=== PATIENT | male | born 1960 | race Caucasian/White ===

== ENCOUNTER → 2018-04-12 09:07 | Outpatient (CLI) | payer BC, SELFPAY ==
--- NOTE | 2018-04-12 09:14 | US_ITS ---
US thyroid HISTORY: ITS.REASON: THYROMEGALY ORDERING PHYSICIAN: Tereza Anaya PATIENT AGE: 57 years Comparison: None FINDINGS: Right lobe: Homogeneous echogenicity measuring 4 x 1 x 2 cm. No nodules Left lobe: Homogeneous echogenicity measuring 4 x 1.2 x 1.8 cm. No nodules Isthmus: Unremarkable IMPRESSION: Thyroid gland upper limits of normal in size otherwise negative. No nodules apparent
== END ==
PROVIDERS: Family Provider Family Medicine; PCP Family Medicine; Visit Provider Nurse Practitioner
DX: E01.0 Iodine-deficiency related diffuse (endemic) goiter (principal)
CPT/HCPCS: 76536

== ENCOUNTER → 2019-03-14 09:53 | Outpatient (CLI) | payer BC, SELFPAY | PROVIDERS: PCP Family Medicine; Visit Provider Nurse Practitioner | DX: I49.8 Other specified cardiac arrhythmias (principal) | CPT/HCPCS: 93005 ==

== ENCOUNTER → 2019-03-21 07:46 | Outpatient (CLI) | payer BC, SELFPAY | PROVIDERS: PCP Family Medicine; Visit Provider Nurse Practitioner | DX: I49.8 Other specified cardiac arrhythmias (principal) | CPT/HCPCS: 93005 ==

== ENCOUNTER → 2019-05-23 10:12 | Outpatient (CLI) | payer BC, SELFPAY | PROVIDERS: PCP Family Medicine; Visit Provider Physician Assistant | DX: R00.1 Bradycardia, unspecified (principal); I49.3 Ventricular premature depolarization; R06.02 Shortness of breath; R94.31 Abnormal electrocardiogram [ECG] [EKG]; Z82.49 Family history of ischemic heart disease and other diseases of the circulatory system | CPT/HCPCS: 93270 ==

== ENCOUNTER → 2019-06-03 07:36 | Outpatient (CLI) | payer BC, SELFPAY ==
--- NOTE | 2019-06-03 07:42 | CA_ITS ---
PROCEDURE: 2-D M-mode and color Doppler study INDICATIONS FOR THE TEST: Chest pain COPD Heart Murmur Tobacco Smoking Palpitations Fatigue Syncope Edema Hypertension+Diabetes Mellitus Rheumatic Fever SOB+CALVERT Obesity Hyperlipidemia Family History HD+ Additional History ABN EKG, BRADYCARDIA, PVC'S GERD PATIENT INFORMATION HEIGHT: 73 WEIGHT:227 GENDER: Male B/P:143/97 2-D/M-MODE INTERPRETATION: 2-D MEASUREMENTS OBSERVED VALUES IN CMS Right Ventricular Dimension (RVDd) 2.2 Interventricular Septum (Thickness)(IVsd) 1.2 Left Ventricular Internal Dimensions(LVIDd) 5.6 Left Ventricular Posterior Wall (Thickness)(LVPWd) 1.1 Aortic Root 4.0 Aortic Cusp Separation 1.9 Left Atrial Dimensions (LAD) 4.9 2D 1. Left atrium is moderately enlarged, left ventricle is normal size, mild concentric left ventricular hypertrophy, visually estimated ejection fraction 55% with no regional wall motion abnormality, endocardial surfaces are poorly visualized. 2. The right atrium and right ventricle are normal size and contractility. 3. The aortic valve is thickened and calcified leaflet continue to display mobility. 4. Mitral valve has mitral annular calcification, leaflets are minimally thickened and calcified. 5. The tricuspid valve is grossly normal. 6. The pulmonic valve is very poorly visualized. 7. No significant pericardial effusion noted. DOPPLER INTERROGATION: Doppler interrogation of the aortic, mitral and tricuspid valvular presence of moderate mitral and mild tricuspid regurgitation, tricuspid regurgitation jet velocity is inadequate for calculation of the right ventricular systolic pressure, grade 1 diastolic dysfunction seen with tissue Doppler evidence of raised left atrial pressure. CONCLUSION: 1. Moderately enlarged left atrium, normal left ventricular size, mild concentric left ventricular hypertrophy, visually estimated ejection fraction 55% with no regional wall motion abnormality, endocardial surfaces are poorly visualized. Grade 1 diastolic dysfunction seen with tissue Doppler evidence of raised left atrial pressure. 2. Moderate mitral and mild tricuspid regurgitation 3. No significant pericardial effusion noted.
== END ==
PROVIDERS: PCP Family Medicine; Visit Provider Internal Medicine
DX: R06.02 Shortness of breath (principal); I10 Essential (primary) hypertension; R00.1 Bradycardia, unspecified; R94.31 Abnormal electrocardiogram [ECG] [EKG]; Z82.49 Family history of ischemic heart disease and other diseases of the circulatory system
CPT/HCPCS: 93306

== ENCOUNTER → 2019-06-20 10:43 | Outpatient (CLI) | payer BC, SELFPAY ==
[2019-06-20 11:05] LABS: Basophils % 0.5 % (0.1-2.0); Eosinophils # 0.1 K/mm3 (0.0-0.4); Eosinophils % 1.3 % (0.1-12.0); Hematocrit 47.6 % (42.0-52.0); Lymphocytes # 1.5 K/mm3 (0.7-4.5); Lymphocytes % 16.7 % (10-50); Mean Corpuscular HGB Conc 33.6 g/dL (31.8-35.4); Mean Corpuscular Hemoglobin 32.9 pg (27.0-31.2); Mean Corpuscular Volume 97.8 fl (80-94); Mean Platelet Volume 6.9 fl (7.4-10.4); Monocytes # 0.7 K/mm3 (0.1-1.0); Monocytes % 7.3 % (1.7-9.3); Neutrophils # 6.8 K/mm3 (1.8-7.8); Neutrophils % 74.2 % (37.0-80.0); Platelet Count 189 K/mm3 (142-424); Red Blood Count 4.87 M/mm3 (4.60-6.20); Red Cell Distribution Width 12.6 % (11.5-17.5); White Blood Count 9.1 K/mm3 (4.8-10.8)
[2019-06-20 13:37] LABS: Anion Gap 15.1 mEq/L (5-15); Blood Urea Nitrogen 12 mg/dL (7-18); Calcium 9.5 mg/dL (8.5-10.1); Carbon Dioxide 26 mmol/L (21.0-32.0); Chloride 103 mmol/L (98-107); Creatinine,Serum 1.21 mg/dL (0.70-1.30); Estimated Glomerular Filt Rate 61 ml/min (>60); GFR (African American) 74 ML/MIN (>60); Glucose 95 mg/dL (74-106); Potassium 4.1 mmoL/L (3.5-5.1); Sodium 140 mmol/L (136-145)
== END ==
PROVIDERS: Visit Provider Internal Medicine
DX: Z95.5 Presence of coronary angioplasty implant and graft (principal)
CPT/HCPCS: 36415; 80048; 85025

== ENCOUNTER → 2019-09-21 07:43 | Outpatient (CLI) | payer BC, SELFPAY ==
--- NOTE | 2019-09-21 07:47 | CA_ITS ---
APPROVED REPORT EXAM: Comprehensive 2D, Doppler, and color-flow Echocardiogram Window Shade Installer: Smiley Mariano RDCS Ht: 6 ft 1 in Wt: 234lbs BSA: 2.30 BP: 136/60 mmHg Indications: DECREASED EF 40% 06/13/19, CAD,AF,CM HTN,HLP 2D Dimensions LVOT 1.99 cm (M/F) 1.5-2.5 M-Mode Dimensions RVDd 2.53 cm (0.9-2.6) LVDd 6.85 cm (3.5-5.7) LVDs 5.11 cm (3.5-5.7) IVSd 1.08 cm (0.6-1.1) PWd 1.08 cm (0.6-1.1) EF (Teich) 48.80% FS 25.40% EDV (Teich) 243.20 mL ESV (Teich) 124.40 mL LV Diastology E/A Ratio 0.40 Aortic Valve LVOT Max 54.00 (70-110 cm/s) LVOT VTI 9.72 cm Mitral Valve MV A Velocity 63.00 (40-130 cm/s) Left Ventricle Left atrium is mildly enlarged, left ventricle is normal size, mild concentric left ventricular hypertrophy, visually estimated ejection fraction 50% with no regional wall motion abnormality, grade 1 diastolic dysfunction seen without tissue Doppler evidence of raise left atrial pressure. Right Ventricle Right atrium and right ventricular normal size and contractility. Aortic Valve Aortic valve is minimally thickened and fibrosed. There is no aortic stenosis aortic insufficiency. Mitral Valve Valve is grossly normal, there is mild mitral regurgitation. Tricuspid Valve Tricuspid valve is grossly normal, there is mild tricuspid regurgitation. Mild tricuspid valve prolapse. Pulmonic Valve Pulmonic valve is poorly visualized. Great Vessels Aortic root is normal size. Pericardium No significant pericardial effusion noted. Conclusion 1. Mildly enlarged left atrium, normal left ventricular size, mild concentric left ventricular hypertrophy, visually estimated ejection fraction 50% with no regional wall motion abnormality, grade 1 diastolic dysfunction seen without tissue Doppler evidence of raise left atrial pressure. 2. Mild mitral and tricuspid regurgitation. 3. No significant pericardial effusion noted. Electronically signed by : Beka Scott, 09/22/2019 13:01:36
== END ==
PROVIDERS: PCP Family Medicine; Visit Provider Family Medicine
DX: R93.1 Abnormal findings on diagnostic imaging of heart and coronary circulation (principal)
CPT/HCPCS: 93306

== ENCOUNTER → 2019-10-04 10:02 | Outpatient (CLI) | payer BC, SELFPAY ==
--- NOTE | 2019-10-04 10:06 | XR_ITS ---
PROCEDURE: XR HIP RT 2-3V W/PELVIS CLINICAL INDICATION: RT HIP PAIN COMPARISON: No exams were available for comparison FINDINGS: No fracture or dislocation. No lytic or blastic change. There are minimal osteoarthritic changes of the right. AP view of the pelvis also shows minimal osteoarthritic change of the left hip. IMPRESSION: Minimal osteoarthritic changes of the hips, no acute finding Dictated by: Ralph Gordon MD 10/04/2019 16:13 Electronically signed by Ralph Gordon MD in [place] 10/04/2019 16:13
== END ==
PROVIDERS: PCP Family Medicine; Visit Provider Family Medicine
DX: M25.551 Pain in right hip (principal)
CPT/HCPCS: 73502

== ENCOUNTER → 2021-11-11 07:42 | Outpatient (CLI) | payer BC, SELFPAY ==
--- NOTE | 2021-11-11 07:43 | CA_ITS ---
APPROVED REPORT EXAM: Comprehensive 2D, Doppler, and color-flow Echocardiogram Folding Machine Setter: Heather Hawkins, NEEL, RVS Ht: 6 ft 1 in Wt: 242lbs BSA: 2.33 BP: 166/90 mmHg Indications: SOA, Arrythmia, Abn EKG, A-fib, Hx-CM, DD, HTN, HLD 2D Dimensions IVSd 2.33 cm LVEF (Visual) 56.50 % PWd 1.21 cm LA Volume 103.60 mL LVDd 5.64 cm LA Volume Index 44.148138 mL/m2 (M/F) 16-34 LVDs 3.95 cm Aortic Root 3.51 cm Left Atrium 4.31 cm LVOT 2.15 cm (M/F) 1.5-2.5 M-Mode Dimensions LA Diam 4.47 cm (1.9-4.0) LVDd 5.91 cm (3.5-5.7) Ao Diam 3.75 cm (2.0-3.7) LVDs 4.46 cm (3.5-5.7) EF (Teich) 48.00% EPSs 0.81 cm FS 24.50% EDV (Teich) 173.90 mL ESV (Teich) 90.50 mL LV Diastology E Decel Time 233.00 (160-240 msec) E/A Ratio 0.76 MED E' 4.90 (< 7 cm/sec) MED A' 7.70 cm/s E'/MED E' Ratio 13.57 (>14) LAT E' 8.10 (<10 cm/sec) LAT A' 10.30 cm/s E/LAT E' Ratio 8.21 (>14) Pulm Vein s 48.00 cm/sec Aortic Valve LVOT Max 72.00 (70-110 cm/s) LVOT VTI 16.12 cm AoV Peak Darrion. 180.00 (50-130 cm/s) AO Peak GR. 12.90 mmHg AO Mean GR. 7.80 (<5 mmHg) AO VTI 42.27 (18-25 cm) ARLETTE (VTI) 1.38 (2.5-4.5 cm2) Mitral Valve MV A Velocity 88.00 (40-130 cm/s) E/A Ratio 0.76 MV Decel. Time 233.00 (160-240 ms) Pulmonary Valve PV Peak Velocity 85.00 (50-150 cm/s) Tricuspid Valve TR P. Velocity 183.00 cm/s RAP Estimate 10.00 mmHg RVSP 23.30 mmHg Left Ventricle Left atrium is moderately enlarged, left ventricular is normal in size, mild concentric left ventricular hypertrophy, visually estimated ejection fraction 50% with no regional wall motion abnormality, diastolic parameters are inconclusive. Right Ventricle Right atrium and right ventricle are mildly enlarged with normal contractility. Aortic Valve Aortic valve is minimally thickened and calcified without aortic stenosis or aortic insufficiency. Mitral Valve Mitral valve leaflets are minimally thickened, there is moderate mitral regurgitation. Tricuspid Valve Tricuspid valve grossly normal, there is mild tricuspid regurgitation, tricuspid regurgitation jet versus inadequate for calculation of the right ventricular systolic pressure. Pulmonic Valve Pulmonic valve is poorly visualized. Great Vessels Aortic root is normal size. Inferior vena cava is normal size with normal inspiratory collapse. Pericardium No significant pericardial effusion noted. Conclusion 1. Biatrial enlargement, normal left ventricular size, mild concentric left ventricular hypertrophy, visually estimated ejection fraction 50% with no regional wall motion abnormality, diastolic parameters are inconclusive. 2. Mildly enlarged right ventricle with normal contractility. 3. Moderate mitral and mild tricuspid regurgitation. 4. No significant pericardial effusion noted. 5. Inferior vena cava normal size with normal inspiratory collapse. Electronically signed by : Beka Scott MD 11/11/2021 13:44:10
== END ==
PROVIDERS: PCP Family Medicine; Visit Provider Urology
DX: I25.10 Atherosclerotic heart disease of native coronary artery without angina pectoris (principal); I34.0 Nonrheumatic mitral (valve) insufficiency; I48.0 Paroxysmal atrial fibrillation; I49.3 Ventricular premature depolarization; I49.8 Other specified cardiac arrhythmias; I10 Essential (primary) hypertension; R94.31 Abnormal electrocardiogram [ECG] [EKG]
CPT/HCPCS: 93306

== ENCOUNTER → 2022-01-20 06:18 | Outpatient (CLI) | payer BC, SELFPAY ==
--- NOTE | 2022-01-20 06:22 | NM_ITS ---
APPROVED REPORT Exam: Nuclear Stress Test Indication: SOB, CAD, HTN, High cholesterol, Family history Patient Location: Outpatient Stress Tech: Carmen Low [place] Tech:Candy Lennon, ARRT, RT (R)(N) Ht: 6 ft 1 in Wt: 232 lbs HR: 76 bpm BP: 178/97 mmHg BSA: 2.29 m2 BMI: 30.6 History: SOB, CAD, HTN, High cholesterol, Family history Procedure: Patient received a 0.4 mg of intravenous Lexiscan, resting heart rate 76 bpm, resting blood pressure 178/97 mmHg, with Lexiscan maximum heart rate achived was 92 bpm which is Less than 85 % of the maximum predicted heart rate and blood pressure was 180/108 mmHg. With Lexiscan, patient denied any complaint of chest pain. Electrocardiogram Resting electrocardiogram showed sinus rhythm nonspecific ST-T changes, with Lexiscan there is less than 1.[address] segment depression noted from the baseline EKG. The EKG portion of the Lexiscan is nondiagnostic. Cardiac Stress and Resting SPECT Images: Cardiac Stress and Resting SPECT images were obtained using technetium 99m Myoview 30.1 mCi stress and 10.50 mCi at rest. Patient unable to lay on stomach for prone images. SPECT for analysis of segmental wall motion and calculation of the ejection fraction also done. Cardiac stress and rest respiratory show severe reduced tracer activity in the inferior posterior basal and inferior apical wall which partially improves on the resting images suggestive of mixed ischemia and scar, compared right ejection fraction is 33% with marked inferior wall hypokinesis. Right ventricle is mildly enlarged with normal contractility. Conclusion: 1. The EKG portion of the Lexiscan is nondiagnostic. 2. Scintigraphic evidence of mixed ischemia and scar involving the inferior, posterior basal and inferior apical wall, computer derived ejection fraction is 33% with segmental wall motion abnormality described above, right ventricle is mildly enlarged with normal contractility. 3. Abnormal Lexiscan Myoview study. Electronically signed by : Beka Scott MD 01/20/2022 17:53:28
--- NOTE | 2022-01-20 08:23 | HMH.ITSHM ---
Current Home Medications as stated by this patient Solo Ambrose or practice representative. []RIVAROXABAN LOSARTAN ESOMEPRAZOLE CELECOXIB BISOPROLOL ASA
--- NOTE | 2022-01-20 08:43 | CA_ITS ---
APPROVED REPORT Exam: Pharmacologic Technologist: Carmen Espinal, Ht: 6 ft 1 in Wt: 234 lbs BSA: 2.30 m2 HR: 76 bpm BP: 178/97 mmHg Medical History Medications: Aspirin,,,,, XaRELTO,,,,, BisOPROLOL,,,,, BisOPROLOL Fumarate,,,,, Celecoxib,,,,, [id number],,,,, Stress Test Details Test: LEXISCAN HR Resting HR: 77 bpm Max Heart Rate (APMHR): 158.113793 bpm Max HR Achieved: 99 bpm Target HR (85% APMHR): 134.798067 bpm % of APMHR: 62.66 Recovery HR: 92 bpm BP Resting BP: 178/97 mmHg Max BP: 201/105 mmHg Recovery BP: 178.0/110.0 mmHg ECG Resting ECG: NSR, PVC's, T wave inversion Inf.Lat Clinical Reason for Termination: Completed Protocol Exercise duration: 04:01 min Highest Stage Achieved: Exercise capacity: 1.0 METs Stress ECG Conclusion Symptoms: No CP Arrhythmias/Ectopy: Frequent PVC's, occasional V. couplet ST-T Changes: <1.5mm ST Segment changes Conclusion: Non-Diagnostic Test Summary REST . . . . . . . Resting REST 09:57 . . 77 . 178/ 97 . . Stage 1 01:00 . . 87 . . . . Stage 2 01:00 . . 87 . . . . Stage 3 01:00 . . 82 . 180/108 . . Stage 4 01:00 . . 89 . 191/111 . . Stage 4 01:01 . . 89 . 191/111 . Stop exercise at 04:01 RECOVERY 01:00 . . 80 . 201/105 . . RECOVERY 02:00 . . 79 . 201/105 . . RECOVERY 03:00 . . 92 . 185/114 . . RECOVERY 04:00 . . 82 . 185/114 . . RECOVERY 05:00 . . 0 . 185/114 . . RECOVERY 05:24 . . 0 . 185/114 . . Electronically signed by : Beka Scott MD 01/20/2022 17:48:53
== END ==
PROVIDERS: PCP Family Medicine; Visit Provider Physician Assistant
DX: Z01.810 Encounter for preprocedural cardiovascular examination (principal); R06.02 Shortness of breath; I25.10 Atherosclerotic heart disease of native coronary artery without angina pectoris; I10 Essential (primary) hypertension; I34.0 Nonrheumatic mitral (valve) insufficiency; I49.3 Ventricular premature depolarization
CPT/HCPCS: 78452; 93017; A9502; J2785

== ENCOUNTER → 2022-05-02 10:09 | Outpatient (CLI) | payer BC, SELFPAY ==
[2022-05-02 10:46] LABS: Basophils # 0.1 K/mm3 (0-0.2); Basophils % 1.5 % (0.1-2.0); Eosinophils # 0.2 K/mm3 (0.0-0.4); Eosinophils % 3.9 % (0.1-12.0); Hematocrit 47.7 % (42.0-52.0); Hemoglobin 15.2 g/dL (14.1-18.0); Lymphocytes # 1.4 K/mm3 (0.7-4.5); Lymphocytes % 26.1 % (10-50); Mean Corpuscular HGB Conc 31.8 g/dL (31.8-35.4); Mean Corpuscular Hemoglobin 33.8 pg (27.0-31.2); Mean Corpuscular Volume 106.5 fl (80-94); Mean Platelet Volume 10.5 fl (7.4-10.4); Monocytes # 0.5 K/mm3 (0.1-1.0); Monocytes % 8.2 % (1.7-9.3); Neutrophils # 3.3 K/mm3 (1.8-7.8); Neutrophils % 60.3 % (37.0-80.0); Platelet Count 54 K/mm3 (142-424); Red Blood Count 4.48 M/mm3 (4.60-6.20); Red Cell Distribution Width 12.4 % (11.5-17.5); Reticulocyte % (Auto) 1.3 % (0.9-3.2); White Blood Count 5.5 K/mm3 (4.8-10.8)
[2022-05-02 10:51] LABS: Alanine Aminotransferase 23 U/L (12-78); Albumin Level 3.5 g/dl (3.5-5.0); Albumin/Globulin Ratio 1.1 (1.1-1.8); Alkaline Phosphatase 63 U/L (38-126); Anion Gap 10.1 mEq/L (5-15); Aspartate Amino Transferase 36 U/L (17-59); Bilirubin,Total 1.2 mg/dl (0.2-1.3); Blood Urea Nitrogen 11 mg/dl (9-20); Calcium 9.5 mg/dl (8.4-10.2); Carbon Dioxide 26 mmol/L (22.0-30.0); Chloride 104 mmol/L (98-107); Estimated Glomerular Filt Rate 98 ml/min (>60); GFR (African American) 118 ML/MIN (>60); Globulin 3.2 g/dL (1.3-3.2); Glucose 114 mg/dl (74-100); Potassium 4.1 mmoL/L (3.5-5.1); Sodium 136 mmol/L (136-145); Total Protein,Serum 6.7 g/dl (6.3-8.2)
[2022-05-02 11:57] LABS: Vitamin B12 662 pg/mL (239-931)
[2022-05-02 12:01] LABS: Folate 7.07 ng/mL
== END ==
PROVIDERS: Internal Medicine Hematology & Oncology; PCP Family Medicine; Visit Provider Internal Medicine Medical Oncology
DX: D69.49 Other primary thrombocytopenia (principal)
CPT/HCPCS: 36415; 80053; 82248; 82607; 82746; 85025; 85044

== ENCOUNTER → 2022-07-10 07:10 | Outpatient (CLI) | payer BC, SELFPAY ==
--- NOTE | 2022-07-10 07:23 | XR_ITS ---
FINAL REPORT CLINICAL HISTORY: left knee pain FINDINGS: LEFT KNEE: 4 views of the left knee obtained. There is no acute fracture or dislocation. There are mild and moderate degenerative changes. Medial compartment joint space narrowing is seen. There is a suprapatellar calcification which appears chronic. There is no soft tissue abnormality. IMPRESSION: Degenerative changes without acute bony abnormality. Reviewed, Interpreted and Dictated by Robert Cruz III, MD Transcribed by Nichole Spear Authenticated and [facility]
[2022-07-10 09:10] LABS: Basophils % 0.8 % (0.1-2.0); Eosinophils # 0.2 K/mm3 (0.0-0.4); Eosinophils % 4.9 % (0.1-12.0); Hematocrit 48.1 % (42.0-52.0); Lymphocytes # 1.5 K/mm3 (0.7-4.5); Lymphocytes % 30.3 % (10-50); Mean Corpuscular HGB Conc 31.2 g/dL (31.8-35.4); Mean Corpuscular Hemoglobin 32.5 pg (27.0-31.2); Mean Corpuscular Volume 104.2 fl (80-94); Mean Platelet Volume 10.4 fl (7.4-10.4); Monocytes # 0.6 K/mm3 (0.1-1.0); Monocytes % 11.3 % (1.7-9.3); Neutrophils # 2.6 K/mm3 (1.8-7.8); Neutrophils % 52.8 % (37.0-80.0); Red Blood Count 4.61 M/mm3 (4.60-6.20); Red Cell Distribution Width 13.3 % (11.5-17.5); White Blood Count 4.8 K/mm3 (4.8-10.8)
[2022-07-10 09:15] LABS: Creatinine,Urine Random 99 mg/dL (Not Estab.); Microalbumin < 6.000 mg/L (0-16.7); Platelet Count 40 K/mm3 (142-424)
[2022-07-10 09:35] LABS: Chloride 101 mmol/L (98-107)
[2022-07-10 09:36] LABS: Potassium 4.9 mmoL/L (3.5-5.1); Sodium 134 mmol/L (136-145)
[2022-07-10 09:37] LABS: Hemoglobin A1C 4.7 % (4.0-6.0)
[2022-07-10 10:08] LABS: Thyroid Stimulating Hormone 2.37 uIU/mL (0.465-4.68)
[2022-07-10 10:10] LABS: Alanine Aminotransferase 19 U/L (12-78); Albumin Level 3.9 g/dl (3.5-5.0); Albumin/Globulin Ratio 1.2 (1.1-1.8); Alkaline Phosphatase 84 U/L (38-126); Anion Gap 11.9 mEq/L (5-15); Aspartate Amino Transferase 45 U/L (17-59); Bilirubin,Total 2.2 mg/dl (0.2-1.3); Blood Urea Nitrogen 10 mg/dl (9-20); Calcium 8.9 mg/dl (8.4-10.2); Carbon Dioxide 26 mmol/L (22.0-30.0); Chol/HDL Ratio 2.1 (1-3.5); Cholesterol 183 mg/dl (140-200); Estimated Glomerular Filt Rate 98 ml/min (>60); GFR (African American) 118 ML/MIN (>60); Globulin 3.3 g/dL (1.3-3.2); Glucose 101 mg/dl (74-100); HDL Cholesterol 88 mg/dl (40-60); Total Protein,Serum 7.2 g/dl (6.3-8.2); Triglycerides 55 mg/dl (30-150); VLDL Cholesterol 11 mg/dL (0-40)
[2022-07-11 09:11] LABS: Direct LDL Cholesterol 90 mg/dL (100-129)
== END ==
PROVIDERS: PCP Family Medicine; Visit Provider Family Medicine
DX: D69.6 Thrombocytopenia, unspecified (principal); E11.9 Type 2 diabetes mellitus without complications; I10 Essential (primary) hypertension; M25.562 Pain in left knee
CPT/HCPCS: 36415; 73564; 80053; 80061; 82043; 82570; 83036; 84443; 85025

== ENCOUNTER → 2022-07-17 13:23 | Outpatient (CLI) | payer BC, SELFPAY ==
[2022-07-17 13:50] LABS: Basophils # 0.4 K/mm3 (0-0.2); Basophils % 6.6 % (0.1-2.0); Eosinophils # 0.2 K/mm3 (0.0-0.4); Eosinophils % 3.5 % (0.1-12.0); Hemoglobin 15.7 g/dL (14.1-18.0); Lymphocytes % 34.1 % (10-50); Mean Corpuscular HGB Conc 30.1 g/dL (31.8-35.4); Mean Corpuscular Hemoglobin 34.1 pg (27.0-31.2); Mean Platelet Volume 18.1 fl (7.4-10.4); Monocytes # 0.6 K/mm3 (0.1-1.0); Monocytes % 10.1 % (1.7-9.3); Neutrophils % 52.4 % (37.0-80.0); Red Cell Distribution Width 15.4 % (11.5-17.5); White Blood Count 5.8 K/mm3 (4.8-10.8)
[2022-07-17 13:53] LABS: Platelet Count 50 K/mm3 (142-424)
--- NOTE | 2022-07-17 15:45 | PC.NURSE ---
Roverto DERAS CALLED AT 1327 TO REPORT PLT'S OF 50. PT NAME, AND LAB VALUE REPEATED AND VERIFIED; RESULTS GIVEN DIRECTLY TO THE PHYSICIAN; NO NEW ORDERS RECIEVED
== END ==
PROVIDERS: PCP Family Medicine; Visit Provider Internal Medicine Medical Oncology
DX: D69.6 Thrombocytopenia, unspecified (principal)
CPT/HCPCS: 36415; 85025

== ENCOUNTER → 2022-08-01 08:14 | Outpatient (CLI) | payer BC, SELFPAY ==
--- NOTE | 2022-08-01 08:25 | CT_ITS ---
FINAL REPORT TECHNIQUE: Oral and IV contrast enhanced exam. This study was performed with techniques to keep radiation doses as low as reasonably achievable (ALARA). Individualized dose reduction techniques using automated exposure control or adjustment of mA and/or kV according to the patient's size were employed. CLINICAL HISTORY: THROMBOCYTOPENIA, SPLENOMEGALY FINDINGS: Abdomen: Lung bases are clear. Liver has a cirrhotic appearance. Mild splenomegaly. The pancreas and adrenal glands are unremarkable. Kidneys show no mass or obstruction. Thrombosed superior mesenteric vein has an acute appearance extending into mesenteric vein branches of the central abdomen and right lower quadrant. Mild stranding and wall thickening of the duodenum and terminal ileum. Ischemia cannot be excluded. No free air. No bowel obstruction or fluid collection is seen. Pelvis: The appendix is not visualized. Pelvic bowel loops are unremarkable. Trace free fluid. Nonspecific bladder wall thickening. 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 Mild wall thickening of the duodenum and terminal ileum. Cannot exclude ischemia. Reviewed, Interpreted and Dictated by Abundio Sepulveda MD Transcribed by Gerardo Aranda Authenticated and [facility]
--- NOTE | 2022-08-01 09:43 | HMH.ITSTN ---
Gerardo from reading room called me with critical findings at 9:37am I called and spoke with nurse Amber from Dr Desouza's office with acute findings. Acute SMV thrombosis extending to numerous branches.
--- NOTE | 2022-08-01 10:38 | ECG_ITS ---
APPROVED REPORT Exam: Resting ECG HR:77 bpm ECG Measurements Heart Rate 77 AXES NM 203 P 43 QRSd 113 QRS 27 QT 387 T -62 QTc 418 Conclusion SINUS RHYTHM WITH FREQUENT VENTRICULAR PREMATURE COMPLEXES Inferior and anterior changes are noted since 2018 ABNORMAL ECG UNCONFIRMED REPORT Electronically signed by : Jimbo Holbrook MD 08/02/2022 16:07:44
== END ==
PROVIDERS: PCP Family Medicine; Visit Provider Internal Medicine Medical Oncology
DX: D69.6 Thrombocytopenia, unspecified (principal); R16.1 Splenomegaly, not elsewhere classified
CPT/HCPCS: 74178; 93005; Q9967

== ENCOUNTER 2022-08-01 10:22 | Emergency (ER) | payer BC, SELFPAY ==
[2022-08-01] VITALS (7 sets, daily range): BP systolic 162–190; BP diastolic 85–105; PULSE 65–87; RESP 13–16; TEMP 36.4–36.6; O2SAT 98–100; BMI 30.9
--- NOTE | 2022-08-01 10:39 | HMH.EDGENADL ---
Discharge Plan Disposition Patient Disposition: Home, Self-Care Condition: Good Prescriptions Prescriptions: New Xarelto 15 mg tablet 15 mg PO BID 21 Days Qty: 42 0RF Rx Instructions: must administer with a meal/food No Action esomeprazole magnesium [Nexium] 20 mg capsule,delayed release(DR/EC) 20 mg PO DAILY losartan 100 mg tablet 100 mg PO DAILY Qty: 90 3RF bisoprolol fumarate 5 mg tablet See Rx Instructions .ROUTE .COMPLEX Qty: 90 3RF Dose Instruction: TAKE 1 TABLET BY MOUTH DAILY Rx Instructions: TAKE 1 TABLET BY MOUTH DAILY Referrals Follow up/Referrals: Pasquale Girard MD [Primary Care Provider] - See instructions Activity Restrictions/Add. Instructions Additional Instructions/Restrictions: Start Xarelto 15 mg twice a day for 3 weeks. After that. Dose will change to 20 mg daily, we will need to obtain a new prescription for that dosage Return to the emergency department if any abdominal pain, vomiting, vomiting of blood, blood in the stool. Follow-up with Dr. Girard in the office next week. Clinical Impressions Clinical Impression: Superior mesenteric vein thrombosis, Thrombocytopenia Discharge ED Provider: Reji Mata General Adult HPI General Chief complaint: Recheck/Abnormal Lab/Rx Stated complaint: possible bowel blockage Time Seen by Provider: 08/01/22 10:40 History of Present Illness HPI narrative: The patient is sent from radiology department regarding concerns for findings on an outpatient CT scan. He had a CT scan of his abdomen and pelvis today ordered by Dr. Desouza a couple of weeks ago for evaluation of thrombocytopenia to check for splenomegaly and liver disease. The CT scan is read by the radiologist as showing superior mesenteric vein thrombosis, possibly acute. The patient says he feels fine. He is having no abdominal pain. He had abdominal cramps a couple of days ago relieved by bowel movement, which she says is a recurrent problem for several years. Since last night he has had some pain in his right lower lumbar area above the iliac crest which feels like a pulled muscle. He has had no vomiting, no fever. He was on blood thinner, Xarelto, which was stopped a couple of months ago because of thrombocytopenia. He has no history of venous thromboembolic disease to his knowledge. He says he was on a blood thinner because of a cardiac stent. Also previously on low-dose aspirin which was also stopped. Related Data Home Medications Medication Instructions Recorded Confirmed esomeprazole magnesium 20 mg 20 mg PO DAILY 05/23/19 07/17/22 capsule,delayed release (Nexium) Previous Rx's Medication Instructions Recorded losartan 100 mg tablet 100 mg PO DAILY #90 tabs 05/01/21 bisoprolol fumarate 5 mg tablet See Rx Instructions .Route 04/21/22 .COMPLEX #90 tabs rivaroxaban 15 mg tablet (Xarelto) 15 mg PO BID 21 days #42 tabs 08/01/22 Allergies Allergy/AdvReac Type Severity Reaction Status Date / Time No Known Allergies Allergy Verified 07/17/22 12:35 [facility] Medical History Bigeminy CAD (coronary artery disease) Diastolic dysfunction DM2 (diabetes mellitus, type 2) Frequent PVCs HTN (hypertension) Mitral regurgitation SOB (shortness of breath) Thrombocytopenia Surgical History History of shoulder surgery Family History Other Cancer Diabetes Hyperlipidemia Hypertension Social History Smoking Status: Never smoker alcohol intake: current substance use type: denies use current occupational status: employed Travel in the last 8 weeks: None household members: significant other ROS Obtained: Yes Systems reviewed as appropriate & no additional complaints except as documented Constituti
--- NOTE | 2022-08-01 10:52 | PC.NURSE ---
Dr Mata talking to Dr Aquino about patient.
--- NOTE | 2022-08-01 11:02 | PC.NURSE ---
pt up ambulatory to bathroom
--- NOTE | 2022-08-01 11:04 | PC.NURSE ---
Had aging room operator page Dr Desouza
--- NOTE | 2022-08-01 11:10 | PC.NURSE ---
grinder set up operator universal talked to specialty clinic, they stated that she is home, requested that they page her.
[2022-08-01 11:13] LABS: Coronavirus 19, PCR Not Detected (NotDetected); Influenza A, PCR Not Detected (NotDetected); Influenza B, PCR Not Detected (NotDetected)
[2022-08-01 11:17] LABS: Microscopic, Urine URINE MICROSCOPIC (MICROSCOPIC)
[2022-08-01 11:18] LABS: Chloride 102 mmol/L (98-107); Potassium 4.8 mmoL/L (3.5-5.1); Sodium 137 mmol/L (136-145)
[2022-08-01 11:20] LABS: Blood Urea Nitrogen 14 mg/dl (9-20); Creatinine Clearance Estimated 114 mL/min (50-200); Estimated Glomerular Filt Rate 98 ml/min (>60); GFR (African American) 118 ML/MIN (>60)
[2022-08-01 11:20] LABS: Appearance,Urine CLEAR (Clear); Bilirubin,Urine Negative (Negative); Blood, Urine Negative (Negative); Color,Urine YELLOW (Yellow); Glucose,Urine (UA) Negative (Negative); Ketones,Urine Negative (Negative); Leukocyte Esterase,Urine Negative (Negative); Nitrate,Urine Negative (Negative); Protein,Urine Negative (Negative); Specific Gravity, Urine <= 1.005 (1.005-1.030); Urobilinogen,Urine 0.2 EU/dl (0.2)
[2022-08-01 11:21] LABS: Alanine Aminotransferase 27 U/L (12-78); Albumin Level 3.8 g/dl (3.5-5.0); Albumin/Globulin Ratio 1.2 (1.1-1.8); Alkaline Phosphatase 75 U/L (38-126); Anion Gap 13.8 mEq/L (5-15); Aspartate Amino Transferase 51 U/L (17-59); Bilirubin,Total 1.3 mg/dl (0.2-1.3); Calcium 8.7 mg/dl (8.4-10.2); Carbon Dioxide 26 mmol/L (22.0-30.0); Globulin 3.3 g/dL (1.3-3.2); Glucose 122 mg/dl (74-100); Total Protein,Serum 7.1 g/dl (6.3-8.2)
[2022-08-01 11:22] LABS: Basophils # 0.1 K/mm3 (0-0.2); Basophils % 2.4 % (0.1-2.0); Eosinophils # 0.2 K/mm3 (0.0-0.4); Eosinophils % 3.9 % (0.1-12.0); Hematocrit 46.3 % (42.0-52.0); Hemoglobin 15.5 g/dL (14.1-18.0); Lymphocytes # 1.4 K/mm3 (0.7-4.5); Lymphocytes % 25.2 % (10-50); Mean Corpuscular HGB Conc 33.5 g/dL (31.8-35.4); Mean Corpuscular Hemoglobin 34.2 pg (27.0-31.2); Mean Corpuscular Volume 102.1 fl (80-94); Mean Platelet Volume 10.9 fl (7.4-10.4); Monocytes # 0.4 K/mm3 (0.1-1.0); Monocytes % 7.7 % (1.7-9.3); Neutrophils # 3.4 K/mm3 (1.8-7.8); Neutrophils % 60.7 % (37.0-80.0); Platelet Count 56 K/mm3 (142-424); Red Blood Count 4.53 M/mm3 (4.60-6.20); Red Cell Distribution Width 13.2 % (11.5-17.5); White Blood Count 5.5 K/mm3 (4.8-10.8)
--- NOTE | 2022-08-01 11:27 | PC.NURSE ---
waiting elementary education teacher back from Dr. Burgos who is elementary education teacher for surgery ( spoke with BJ in surgery office)
[2022-08-01 11:30] LABS: Activated Partial Thrombo Time 26.3 seconds (22.5-28.5); INR 1.15 (0.9-1.1); Prothrombin Time 12.1 seconds (9.2-12.1)
[2022-08-01 11:37] LABS: Squamous Epithelial Cell,Urine Occasional #/hpf (0-5)
--- NOTE | 2022-08-01 11:57 | PC.NURSE ---
Dr Mata talking to [facility] about patient.
--- NOTE | 2022-08-01 12:08 | PC.NURSE ---
Dr Mata talking to DR Aquino about patient.
--- NOTE | 2022-08-01 12:25 | PC.NURSE ---
PT UP TO RESTROOM
== END 2022-08-01 12:32 | disposition home or self-care (01) ==
PROVIDERS: Emergency Provider Emergency Medicine; PCP Family Medicine
DX: K55.059 Acute (reversible) ischemia of intestine, part and extent unspecified (principal); R10.31 Right lower quadrant pain; R06.02 Shortness of breath; I11.0 Hypertensive heart disease with heart failure; I50.32 Chronic diastolic (congestive) heart failure; I25.10 Atherosclerotic heart disease of native coronary artery without angina pectoris; I49.3 Ventricular premature depolarization; I49.8 Other specified cardiac arrhythmias; I34.0 Nonrheumatic mitral (valve) insufficiency; R16.1 Splenomegaly, not elsewhere classified; E11.9 Type 2 diabetes mellitus without complications; M54.50 Low back pain, unspecified; Z79.01 Long term (current) use of anticoagulants; Z20.822 Contact with and (suspected) exposure to COVID-19; Z79.52 Long term (current) use of systemic steroids; Z79.899 Other long term (current) drug therapy; Z95.5 Presence of coronary angioplasty implant and graft; Z82.49 Family history of ischemic heart disease and other diseases of the circulatory system; Z83.3 Family history of diabetes mellitus; Z80.9 Family history of malignant neoplasm, unspecified; Z83.49 Family history of other endocrine, nutritional and metabolic diseases
CPT/HCPCS: 80053; 81001; 85025; 85610; 85730; 99284; C9803; U0003; U0005

== ENCOUNTER → 2022-11-10 09:32 | Outpatient (CLI) | payer BC, SELFPAY ==
--- NOTE | 2022-11-10 09:34 | CA_ITS ---
APPROVED REPORT EXAM: Comprehensive 2D, Doppler, and color-flow Echocardiogram Salvage Laborer: Luz Marina Cabello RVT Ht: 6 ft 1 in Wt: 242lbs BSA: 2.33 BP: 138/48 mmHg Indications: MOD MR,CM,ABN EKG,A-FIB,SOA,HTN,HLD 2D Dimensions LVOT 2.46 cm (M/F) 1.5-2.5 LA Volume 81.10 mL LA Volume Index 34.66 mL/m2 (M/F) 16-34 M-Mode Dimensions RVDd 3.42 cm (0.9-2.6) LA Diam 5.21 cm (1.9-4.0) LVDd 6.04 cm (3.5-5.7) Ao Diam 3.67 cm (2.0-3.7) LVDs 3.75 cm (3.5-5.7) IVSd 1.85 cm (0.6-1.1) PWd 0.60 cm (0.6-1.1) EF (Teich) 67.20% FS 37.90% EDV (Teich) 182.80 mL TAPSE 2.17 (<1.7) ESV (Teich) 60.00 mL LV Diastology E Decel Time 193.00 (160-240 msec) E/A Ratio 2.9 MED E' 11.50 (< 7 cm/sec) E'/MED E' Ratio 6.94 (>14) LAT E' 12.70 (<10 cm/sec) E/LAT E' Ratio 6.28 (>14) Aortic Valve AO Peak GR. 15.90 mmHg Mitral Valve MV E Max Darrion. 80.00 (40-130 cm/s) MV A Velocity 28.00 (40-130 cm/s) E/A Ratio 2.89 MV Decel. Time 193.00 (160-240 ms) MV PHT 57.00 ms Pulmonary Valve PV Peak Velocity 86.00 (50-150 cm/s) Tricuspid Valve TR P. Velocity 278.00 cm/s RAP Estimate 10.00 mmHg RVSP 40.90 mmHg Left Ventricle Technically difficult study because of the patient factors and poor acoustic windows. Left atrium is mildly enlarged, left ventricle is normal size, mild concentric left ventricular hypertrophy, estimated ejection fraction 50% with no regional wall motion abnormality, diastolic parameters are inconclusive. Right Ventricle Right atrium and right ventricle are mildly enlarged with normal contractility. Aortic Valve Aortic valve is minimally thickened and fibrosed there is no aortic stenosis or aortic insufficiency. Mitral Valve Mitral valve leaflets are minimally thickened, there is moderate mitral regurgitation. Tricuspid Valve Tricuspid grossly normal, there is moderate tricuspid regurgitation, tricuspid regurgitation jet velocity is inadequate for calculation of the right ventricular systolic pressure. Pulmonic Valve Pulmonic valve is poorly visualized. Great Vessels Aortic root is normal size. Inferior vena cava is poorly visualized. Pericardium No significant pericardial effusion noted. Conclusion 1. Biatrial enlargement, normal left ventricular size, estimated ejection fraction 50% with no regional wall motion abnormality, diastolic parameters are inconclusive. 2. Mildly enlarged right ventricle with normal contractility. 3. Moderate mitral and tricuspid regurgitation. 4. No significant pericardial effusion noted. 5. Inferior vena cava is poorly visualized. Electronically signed by : Beka Scott MD 11/10/2022 22:04:33
== END ==
PROVIDERS: PCP Family Medicine; Visit Provider Nurse Practitioner
DX: R06.02 Shortness of breath (principal); I25.5 Ischemic cardiomyopathy; I25.10 Atherosclerotic heart disease of native coronary artery without angina pectoris; I34.0 Nonrheumatic mitral (valve) insufficiency; I48.0 Paroxysmal atrial fibrillation; I10 Essential (primary) hypertension
CPT/HCPCS: 93306

== ENCOUNTER 2023-04-03 14:23 | Observation (INO) | payer BC, SELFPAY ==
[2023-04-03] VITALS (20 sets, daily range): BP systolic 133–173; BP diastolic 62–104; PULSE 60–90; RESP 15–20; TEMP 36.4–36.8; O2SAT 99–100; BMI 33.0; BMI 32.9
--- NOTE | 2023-04-03 14:32 | HMH.EDGENADL ---
Discharge Plan Disposition Patient Disposition: Admitted Chief Complaint: Shortness of Breath/Dyspnea Prescriptions Prescriptions: No Action esomeprazole magnesium [Nexium] 20 mg capsule,delayed release(DR/EC) 20 mg PO DAILY Xarelto 20 mg tablet 20 mg PO DAILY cholecalciferol (vitamin D3) 125 mcg (5,000 unit) capsule 125 mcg PO DAILY furosemide 40 mg tablet 40 mg PO DAILY bisoprolol fumarate 5 mg tablet 5 mg PO DAILY losartan 100 mg tablet 100 mg PO DAILY Referrals Follow up/Referrals: Pasquale Girard MD [Staff Physician] - See instructions Clinical Impressions Clinical Impression: Anemia, Acute GI bleeding, Myocardial injury, Acute dyspnea, Bilateral edema of lower extremity Discharge ED Provider: Marie Naylor General Adult HPI General Chief complaint: Shortness of Breath/Dyspnea Stated complaint: soa Time Seen by Provider: 04/03/23 14:34 History of Present Illness HPI narrative: Patient is a 62-year-old male with a history of alcoholism and chronic thrombocytopenia followed by Dr. Desouza with heme-onc here recently diagnosed with splenomegaly and cirrhosis. Went to an outside hospital for a few months of worsening dyspnea with I did some basic blood work today showing a hemoglobin of 7. His baseline from old records was 15. Patient has had some darker stools but has not had any melena or hematemesis. He has never had any diagnosis of esophageal varices. He has had no other symptoms including fevers chills etc. he feels very good at rest. Related Data Home Medications Medication Instructions Recorded Confirmed cholecalciferol (vitamin D3) 125 125 mcg PO DAILY Supplement 10/30/22 04/03/23 mcg (5,000 unit) capsule esomeprazole magnesium 20 mg 20 mg PO DAILY Acid reflux 10/30/22 04/03/23 capsule,delayed release (Nexium) rivaroxaban 20 mg tablet (Xarelto) 20 mg PO DAILY Blood thinner 10/30/22 04/03/23 bisoprolol fumarate 5 mg tablet 5 mg PO DAILY Heart rhythm 04/03/23 04/03/23 furosemide 40 mg tablet 40 mg PO DAILY Fluid 04/03/23 04/03/23 losartan 100 mg tablet 100 mg PO DAILY High blood pressure 04/03/23 04/03/23 Allergies Allergy/AdvReac Type Severity Reaction Status Date / Time No Known Allergies Allergy Verified 10/30/22 08:43 [facility] Disclaimer: The information contained in this section may have been updated after the patient was seen, as this information can be updated by other users. Medical History Bigeminy CAD (coronary artery disease) Diastolic dysfunction DM2 (diabetes mellitus, type 2) Frequent PVCs HTN (hypertension) Mitral regurgitation SOB (shortness of breath) Thrombocytopenia Surgical History History of shoulder surgery Family History Other Cancer Diabetes Hyperlipidemia Hypertension Social History Smoking Status: Never smoker alcohol intake: current substance use type: denies use current occupational status: employed Travel in the last 8 weeks: None household members: significant other ROS Obtained: Yes All systems reviewed & no additional complaints except as documented Physical Exam General General appearance: alert Respiratory Respiratory exam: Present normal lung sounds bilaterally; Absent respiratory distress Cardiovascular Cardiovascular exam: Present regular rate; Absent tachycardia Rectal Exam Rectal exam: Present other (Brown stool Hemoccult sent ) Neurological Exam Neurological exam: Present alert and oriented X3 Medical Decision Making [place] Inquiry Pt receiving controlled substance: No Vital Signs: 04/03/23 14:25 04/03/23 14:42 04/03/23 14:45 Temperature 97.7 F Temperature Source Oral Pulse Rate 62 84 Pulse Rate [Left] 90 Respiratory Rate 20 Blood Press
--- NOTE | 2023-04-03 15:00 | XR_ITS ---
FINAL REPORT TECHNIQUE: Single view chest CLINICAL HISTORY: dyspnea FINDINGS: A single view of the chest was obtained. The heart and mediastinum are within normal limits. The lungs are clear. There is no pneumothorax. Osseous structures are unremarkable. IMPRESSION: No acute cardiopulmonary process. Reviewed, Interpreted and Dictated by Carloz Faulkner MD Transcribed by Nichole Spear Authenticated and . [facility]
--- NOTE | 2023-04-03 15:14 | ECG_ITS ---
APPROVED REPORT Exam: Resting ECG HR:76 bpm ECG Measurements Heart Rate 76 AXES IA 196 P 52 QRSd 107 QRS 32 QT 359 T -74 QTc 390 Conclusion SINUS RHYTHM WITH FREQUENT VENTRICULAR PREMATURE COMPLEXES in a bigeminy pattern Isolated Q in III - previously noted Previously noted STTW changes ABNORMAL ECG UNCONFIRMED REPORT Electronically signed by : Jimbo Holbrook MD 04/04/2023 07:01:05
[2023-04-03 15:35] LABS: Chloride 103 mmol/L (98-107); Sodium 134 mmol/L (136-145)
[2023-04-03 15:38] LABS: Alanine Aminotransferase 30 U/L (12-78); Albumin Level 3.2 g/dl (3.5-5.0); Albumin/Globulin Ratio 1.1 (1.1-1.8); Alkaline Phosphatase 67 U/L (38-126); Aspartate Amino Transferase 45 U/L (17-59); Basophils % 0.4 % (0.1-2.0); Bilirubin,Total 0.9 mg/dl (0.2-1.3); Blood Urea Nitrogen 13 mg/dl (9-20); Calcium 8.8 mg/dl (8.4-10.2); Carbon Dioxide 21 mmol/L (22.0-30.0); Creatinine Clearance Estimated 125 mL/min (50-200); Eosinophils # 0.1 K/mm3 (0.0-0.4); Eosinophils % 3.3 % (0.1-12.0); Estimated Glomerular Filt Rate 85 ml/min (>60); GFR (African American) 103 ML/MIN (>60); Glucose 110 mg/dl (74-100); Hemoglobin 7.4 g/dL (14.1-18.0); Lymphocytes # 1.4 K/mm3 (0.7-4.5); Lymphocytes % 33.8 % (10-50); Magnesium 1.3 mg/dl (1.6-2.3); Mean Corpuscular HGB Conc 30.9 g/dL (31.8-35.4); Mean Corpuscular Hemoglobin 24.7 pg (27.0-31.2); Mean Corpuscular Volume 79.9 fl (80-94); Mean Platelet Volume 16.7 fl (7.4-10.4); Monocytes # 0.4 K/mm3 (0.1-1.0); Monocytes % 10.2 % (1.7-9.3); Neutrophils # 2.2 K/mm3 (1.8-7.8); Neutrophils % 52.2 % (37.0-80.0); Phosphorous 3.9 mg/dl (2.5-4.5); Red Cell Distribution Width 16.6 % (11.5-17.5); Total Protein,Serum 6.2 g/dl (6.3-8.2); White Blood Count 4.2 K/mm3 (4.8-10.8)
[2023-04-03 15:42] LABS: Activated Partial Thrombo Time 31.6 seconds (22.8-30.6); INR 1.45 (0.9-1.1); Prothrombin Time 15.3 seconds (10.1-12.5)
[2023-04-03 15:43] LABS: Platelet Count 21 K/mm3 (142-424)
[2023-04-03 15:49] LABS: NT Pro Brain Natriuretic Pep. 270 pg/mL (0-125)
[2023-04-03 15:51] LABS: Troponin I 0.11 ng/ml (0.00-0.034)
[2023-04-03 16:10] LABS: Occult Blood,Stool Positive (Negative)
[2023-04-03 16:37] LABS: Coronavirus 19, PCR Not Detected (NotDetected); Influenza A, PCR Not Detected (NotDetected); Influenza B, PCR Not Detected (NotDetected)
--- NOTE | 2023-04-03 17:16 | PC.NURSE ---
House contacted for admission
[2023-04-03 17:28] LABS: Thyroid Stimulating Hormone 2.01 uIU/mL (0.465-4.68)
[2023-04-03 17:47] LABS: Vitamin B12 969 pg/mL (239-931)
--- NOTE | 2023-04-03 18:07 | PC.NURSE ---
Report given to JYOTSNA Banda
--- NOTE | 2023-04-03 18:13 | PC.NURSE ---
Continued blood infusion to upstairs with JYOTSNA Banda
--- NOTE | 2023-04-03 18:19 | PC.NURSE ---
arrived to floor by w/c from ED
[2023-04-03 21:20] LABS: Hematocrit 25.3 % (42.0-52.0); Hemoglobin 8.1 g/dL (14.1-18.0)
--- NOTE | 2023-04-03 21:39 | EXP.ACUTE.PN ---
Subjective *Date: 04/03/23 *Time: 21:39 Interval history: This 62 y.o. male was seen in the office of [facility] today and found to be anemic with a Hgb of 7.1 and in CHF with edema. He has a history of cirrhosis, splenomegaly and Thrombocytopenia. He has been seen by Dr. Richa Kunz, heme/Oncology. 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 He has a history of CAD with 3 stents placed in 2018. His last visit to [facility] was in August, and apparently has been noncompliant on medications. He cannot even identify that he has been on Furosemide. He presented in the office c/o worsening SOB over the past several months. 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 Hospitalization was strongly recommended to the patient and arrangements were made, despite his protestations. But, after he was taken to his truck to get his cell phone he went to [facility] ER, was evaluated there and then subsequently admitted. In the ER the anemia was confirmed. Troponin was found to be 0.11. EKG was abnormal. CXR did NOT show acute pulmonary edema. A single unit of PRBC was ordered. Furosemide was ordered. Medical Exam Vital signs and Labs for Last 24 Hours: Vital Signs Temp Pulse Pulse Resp BP BP Pulse Ox 04/03/23 20:05 98.2 F 84 18 165/62 H 100 04/03/23 19:55 98.3 F 79 18 160/83 H 100 04/03/23 18:55 97.9 F 81 18 173/65 H 100 04/03/23 18:40 98 F 80 18 158/69 H 100 04/03/23 18:25 97.9 F 78 19 167/79 H 100 04/03/23 18:10 97.9 F 79 19 153/78 H 100 04/03/23 18:08 97.6 F 77 17 146/76 H 04/03/23 18:05 97.6 F 77 17 146/76 H 99 04/03/23 18:00 97.6 F 71 19 158/91 H 100 04/03/23 17:43 97.6 F 79 17 133/83 100 04/03/23 17:55 97.6 F 79 17 149/71 H 100 04/03/23 16:40 83 15 157/67 H 100 04/03/23 16:31 84 16 145/104 H 100 04/03/23 16:01 85 17 156/71 H 100 04/03/23 15:30 82 143/66 H 100 04/03/23 15:18 82 139/72 100 04/03/23 14:45 84 100 04/03/23 14:42 62 100 04/03/23 14:25 97.7 F 90 20 167/69 H 100 Intake and Output 04/03/23 04/03/23 04/04/23 11:59 19:59 03:59 Intake Total 277 / 277 Output Total 300 / 300 Balance - Intake: Intake (Blood Product) Amt Red Blood Cells Unit [id number] Output: Output, Urine Amount 300 / 300 Other: Weight 256 lb 9 oz Patient Weight 04/04/23 11:59 Weight 256 lb 9 oz Laboratory Results - last 24 hr 04/03/23 15:03: Troponin I 0.11 H, NT-Pro-B Natriuret Pep 270 H 04/03/23 15:03: Blood Type O Positive, Antibody Screen Negative, Crossmatch (AHG) See Detail 04/03/23 15:03: WBC 4.2 L, RBC 3.00 L, Hgb 7.4 L, Hct 24.0 L, MCV 79.9 L, MCH 24.7 L, MCHC 30.9 L, RDW 16.6, Plt Count 21 L*, MPV 16.7 H, Neut % (Auto) 52.2, Lymph % (Auto) 33.8, Haralson % (Auto) 10.2 H, Eos % (Auto) 3.3, Baso % (Auto) 0.4, Neut # (Auto) 2.2, Lymph # (Auto) 1.4, Haralson # (Auto) 0.4, Eos # (Auto) 0.1, Baso # (Auto) 0.0 04/03/23 15:03: PT 15.3 H, INR 1.45 H, APTT 31.6 H 04/03/23 15:03: Sodium 134 L, Potassium 4.0, Chloride 103, Carbon Dioxide 21 L, Anion Gap 14.0, BUN 13, Creatinine 0.90, Estimated Creat Clear 125, Estimated GFR 85, Est GFR ( Amer) 103, Glucose 110 H, Calcium 8.8, Phosphorus 3.9, Magnesium 1.3 L, Total Bilirubin 0.9, AST 45, ALT 30, Alkaline Phosphatase 67, Total Protein 6.2 L, Albumin 3.2 L, Globulin 3.0, Albumin/Globulin Ratio 1.1 04/03/23 15:03: Blood Type Confirm O Positive 04/03/23 15:03: Vitamin B12 969 H, TSH 2.01 04/03/23 15:54: Stool Occult Blood Positive A 04/03/23 16:30: SARS-CoV-2 (PCR) Not detected, Influenza A Untype (PCR) Not detected, Influenza Type B (PCR) Not detected 04/03/23 19:05: Troponin I 0.10 H I & O for Labs for Last 24 Hours: Intake & Output 04/01/23 04/02/23 04/03/23 04/04/23 11:59 11:59 11:
[2023-04-04] VITALS (11 sets, daily range): BP systolic 127–150; BP diastolic 46–89; PULSE 56–85; RESP 16–20; TEMP 36.6–36.8; O2SAT 98–100; BMI 32.8
[2023-04-04 08:21] LABS: Basophils % 0.4 % (0.1-2.0); Eosinophils # 0.2 K/mm3 (0.0-0.4); Eosinophils % 4.3 % (0.1-12.0); Hematocrit 25.5 % (42.0-52.0); Hemoglobin 8.2 g/dL (14.1-18.0); Lymphocytes # 1.5 K/mm3 (0.7-4.5); Lymphocytes % 35.4 % (10-50); Mean Corpuscular HGB Conc 32.4 g/dL (31.8-35.4); Mean Corpuscular Hemoglobin 25.1 pg (27.0-31.2); Mean Corpuscular Volume 77.7 fl (80-94); Mean Platelet Volume 13.9 fl (7.4-10.4); Monocytes # 0.5 K/mm3 (0.1-1.0); Monocytes % 10.5 % (1.7-9.3); Neutrophils # 2.1 K/mm3 (1.8-7.8); Neutrophils % 49.4 % (37.0-80.0); Red Blood Count 3.28 M/mm3 (4.60-6.20); Red Cell Distribution Width 16.7 % (11.5-17.5); White Blood Count 4.3 K/mm3 (4.8-10.8)
[2023-04-04 08:25] LABS: Chloride 102 mmol/L (98-107); Potassium 3.9 mmoL/L (3.5-5.1); Sodium 134 mmol/L (136-145)
[2023-04-04 08:27] LABS: Alanine Aminotransferase 30 U/L (12-78); Aspartate Amino Transferase 44 U/L (17-59); Blood Urea Nitrogen 11 mg/dl (9-20); Creatinine Clearance Estimated 124 mL/min (50-200); Estimated Glomerular Filt Rate 98 ml/min (>60); GFR (African American) 118 ML/MIN (>60)
[2023-04-04 08:28] LABS: Albumin Level 3.4 g/dl (3.5-5.0); Albumin/Globulin Ratio 1.1 (1.1-1.8); Alkaline Phosphatase 74 U/L (38-126); Anion Gap 11.9 mEq/L (5-15); Bilirubin,Total 2.1 mg/dl (0.2-1.3); Calcium 8.7 mg/dl (8.4-10.2); Carbon Dioxide 24 mmol/L (22.0-30.0); Globulin 3.2 g/dL (1.3-3.2); Glucose 110 mg/dl (74-100); Total Protein,Serum 6.6 g/dl (6.3-8.2)
[2023-04-04 08:29] LABS: Platelet Count 30 K/mm3 (142-424)
--- NOTE | 2023-04-04 10:02 | HMH.PHAINT1 ---
Pharmacy Intervention Comments: MEDICATION RECONCILIATION COMPLETE USING EXTERNAL PHARMACY FILL HISTORY AND MOST RECENT CARDIOLOGY OFFICE VISIT (10/2022).
--- NOTE | 2023-04-04 10:40 | ECG_ITS ---
APPROVED REPORT Exam: Resting ECG HR:74 bpm ECG Measurements Heart Rate 74 AXES SC 154 P -2 QRSd 106 QRS 1 QT 387 T -73 QTc 414 Conclusion SINUS RHYTHM WITH FREQUENT VENTRICULAR PREMATURE COMPLEXES IN A BIGEMINAL PATTERN LEFT VENTRICULAR HYPERTROPHY AND ST-T CHANGE [VOLTAGE CRITERIA PLUS ST/T ABNORMALITY] Isolated Q in III - previsously noted ABNORMAL ECG UNCONFIRMED REPORT Electronically signed by : Jimbo Holbrook MD 04/05/2023 11:36:25
--- NOTE | 2023-04-04 10:57 | EXP.HPDC ---
General Admission date:: 04/03/23 *Admission Date: 04/03/23 *Chief complaint: Shortness of breath and weakness *History of present illness: This 62 y.o. male was seen in the office of [facility], ThursdayApril 03 with c/o SOB and weakness. He was found to be anemic with a Hgb of 7.1 and in CHF?with leg edema.? He has a history of cirrhosis, splenomegaly and Thrombocytopenia.? He has been seen by Dr. Richa Desouza, heme/Oncology.? 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 He has a history of CAD with 3 stents placed in 2019.? His last visit to [facility] was in August, and apparently has been noncompliant on medications.? He cannot even identify that he has been on Furosemide. He presented in [facility] c/o worsening SOB over the past several months.? 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 Hospitalization was strongly recommended to the patient 04/03 and arrangements were made, despite his protestations.? But, after he was taken to his truck to get his cell phone he went to [facility] ER, was evaluated there and then subsequently admitted.? In the ER the anemia was confirmed.? Troponin was found to be 0.11.? EKG was abnormal.? CXR did NOT show acute pulmonary edema. A single unit of PRBC was ordered.? Furosemide was ordered. Dr. Dowell notified Dr. Guerrier of the admission and reviewed the case with him. Dr. Guerrier reviewed the EKG. The elevation in troponins was not felt to be of acute concern. [facility] Disclaimer: The information contained in this section may have been updated after the patient was seen, as this information can be updated by other users. Medical History Bigeminy CAD (coronary artery disease) Diastolic dysfunction DM2 (diabetes mellitus, type 2) Frequent PVCs HTN (hypertension) Mitral regurgitation SOB (shortness of breath) Thrombocytopenia Surgical History History of shoulder surgery Family History Other Cancer Diabetes Hyperlipidemia Hypertension Social History Smoking Status: Never smoker alcohol intake: current substance use type: denies use current occupational status: employed Travel in the last 8 weeks: None household members: significant other Review of Systems Review of Systems Review of systems:: pertinent systems reviewed and negative unless documented below Constitutional Constitutional: Reports system reviewed and no additional complaints, except as documented and Reports fatigue Eyes Eyes: Reports system reviewed and no additional complaints, except as documented ENT Ears, Nose, Mouth, and Throat: Reports system reviewed and no additional complaints, except as documented *Cardiovascular Cardiovascular: Reports as per HPI, Reports chest pain with activity, Reports dyspnea, Reports dyspnea on exertion and Reports irregular heart rhythm *Respiratory Respiratory: Reports dyspnea and Reports dyspnea on exertion *Gastrointestinal Gastrointestinal: Denies change in bowel habits, Denies change in stool character, Denies coffee ground emesis, Denies diarrhea and Reports dyspepsia *Genitourinary Genitourinary: Reports system reviewed and no additional complaints, except as documented *Musculoskeletal Musculoskeletal: Reports system reviewed and no additional complaints, except as documented Integumentary/Breasts Skin/Breast: Reports system reviewed and no additional complaints, except as documented *Neurologic Neurologic: Reports system reviewed and no additional complaints, except as documented Psychiatric Psychiatric: Reports system reviewed and no additional complaints, except as documented Endocrine Endocrine: Reports system reviewed and no additional complaints, except as documented and Reports fatigue Hematologic/Lymp
--- NOTE | 2023-04-04 11:22 | HMH.PHAINT1 ---
Pharmacy Intervention Comments: DISCHARGE MEDICATION COUNSELING PROVIDED. DISCUSSED THE FOLLOWING CHANGES: -STOP LASIX 40 MG DAILY AND START TWICE DAILY (FOR FLUID, INCREASED URINATION, LOW POTASSIUM LEVELS [MUSLCE PAIN/WEAKNESS, IRREGULAR HEART BEAT] POSSIBLE, I WOULD TAKE IN THE MORNING WHEN YOU GET UP AND SLIGHTLY AFTER LUNCH/BEFORE DINNER TO AVOID NOCTURIA) -STOP XARELTO -START THE FOLLOWING: -FUROSEMIDE 40 MG TWICE DAILY (SEE ABOVE COUNSELING) -MAGNESIUM (SUPPLEMENT, DAILY, FAIRLY WELL TOLERATED) -POTASSIUM (DAILY, TAKE WITH FOOD, MAY CAUSE UPSET STOMACH) -FERROUS SULFATE (IRON SUPPLEMENT, TWICE DAILY, TAKE WITH FOOD, UPSET STOMACH/NAUSEA/CONSTIPATION POSSIBLE, MAY TURN STOOL BLACK BUT THERE IS NO CONCERN LONG THERE IS NO PRESENCE OF BLOOD OR CHANGE IN STOOL CONSISTENCY TO A MORE STICKY FEELING) PATIENT VERBALIZED NO QUESTIONS AT THIS TIME.
--- NOTE | 2023-04-06 15:49 | CARE MANAGER ---
Spoke with patient for post-discharge review, no issues noted.
== END 2023-04-04 11:50 | disposition home or self-care (01) ==
LOC: ER 16:52 → 2ND 17:51
PROVIDERS: Admitting Provider Family Medicine; Emergency Provider Student in an Organized Health Care Education/Training Program; PCP Family Medicine; Visit Provider Family Medicine
DX: D64.9 Anemia, unspecified (principal); I5A Non-ischemic myocardial injury (non-traumatic); Z79.01 Long term (current) use of anticoagulants; Z95.5 Presence of coronary angioplasty implant and graft; I25.10 Atherosclerotic heart disease of native coronary artery without angina pectoris; I50.9 Heart failure, unspecified; E11.9 Type 2 diabetes mellitus without complications; I11.0 Hypertensive heart disease with heart failure; Z91.128 Patient's intentional underdosing of medication regimen for other reason; Z79.899 Other long term (current) drug therapy; D69.6 Thrombocytopenia, unspecified; K92.2 Gastrointestinal hemorrhage, unspecified
CPT/HCPCS: 36415; 36430; 71045; 80053; 82272; 82607; 83735; 83880; 84100; 84443; 84484; 85014; 85018; 85025; 85610; 85730; 86850; 87636; 93005; 99291; C9803; G0328; G0378; P9016; P9034; U0003; U0005

== ENCOUNTER → 2023-04-10 08:25 | Outpatient (CLI) | payer BC, SELFPAY ==
--- NOTE | 2023-04-10 08:31 | FL_ITS ---
FINAL REPORT CLINICAL HISTORY: gastrointestinal hemorrhage fluoro time: 12.28 FINDINGS: Upper GI examination was performed by Chery Pascual. Images were not made available for review until 04-21-2023. Esophagus appears unremarkable. No mucosal lesions are seen. Mild dysmotility is identified in the distal esophagus. Stomach has normal size shape and configuration. No gastric outlet obstruction is seen. Duodenum appears unremarkable. IMPRESSION: 1. Mild dysmotility and distal esophagus, as described. Authenticated and [facility]
== END ==
PROVIDERS: PCP Family Medicine; Visit Provider Family Medicine
DX: K92.2 Gastrointestinal hemorrhage, unspecified (principal)
CPT/HCPCS: 74246; 74248

== ENCOUNTER → 2023-04-29 08:36 | Outpatient (CLI) | payer BC, SELFPAY ==
--- NOTE | 2023-04-29 08:40 | XR_ITS ---
FINAL REPORT CLINICAL HISTORY: RT SIDED LOW BACK PAIN COMPARISON: None FINDINGS: 5 views of the lumbar spine were obtained. There is no evidence of fracture or dislocation. There is mild degenerative change of the lower lumbar spine. Mild facet arthropathy is noted. There is mild anterolisthesis of L4 on L5. No paraspinous soft tissue abnormalities identified. IMPRESSION: No acute bony abnormality. Reviewed, Interpreted and Dictated by Robert Cruz III, MD Transcribed by Chiara Polanco Authenticated and [facility]
--- NOTE | 2023-04-29 08:40 | XR_ITS ---
FINAL REPORT CLINICAL HISTORY: RT HIP PAIN COMPARISON: 10/04/2019 FINDINGS: RIGHT HIP Two views of the right hip with an AP view of the pelvis demonstrate no acute fracture or dislocation. There is mild degenerative change of the bilateral hips. The visualized bony structures are well aligned. No soft tissue abnormality is seen. IMPRESSION: No acute bony abnormality. Reviewed, Interpreted and Dictated by Robert Cruz III, MD Transcribed by Chiara Polanco Authenticated and [facility]
== END ==
PROVIDERS: PCP Family Medicine; Visit Provider Family Medicine
DX: M25.551 Pain in right hip (principal); M54.50 Low back pain, unspecified
CPT/HCPCS: 72110; 73502

== ENCOUNTER → 2023-05-11 06:59 | Outpatient (CLI) | payer BC, SELFPAY ==
[2023-05-11 07:50] LABS: Basophils % 0.7 % (0.1-2.0); Eosinophils # 0.3 K/mm3 (0.0-0.4); Eosinophils % 5.2 % (0.1-12.0); Hematocrit 44.1 % (42.0-52.0); Hemoglobin 13.9 g/dL (14.1-18.0); Lymphocytes # 1.9 K/mm3 (0.7-4.5); Lymphocytes % 34.9 % (10-50); Mean Corpuscular HGB Conc 31.6 g/dL (31.8-35.4); Mean Corpuscular Hemoglobin 28.5 pg (27.0-31.2); Mean Corpuscular Volume 90.4 fl (80-94); Mean Platelet Volume 13.8 fl (7.4-10.4); Monocytes # 0.5 K/mm3 (0.1-1.0); Monocytes % 9.8 % (1.7-9.3); Neutrophils # 2.6 K/mm3 (1.8-7.8); Neutrophils % 49.3 % (37.0-80.0); Red Blood Count 4.88 M/mm3 (4.60-6.20); Red Cell Distribution Width 20.6 % (11.5-17.5); White Blood Count 5.3 K/mm3 (4.8-10.8)
[2023-05-11 08:43] LABS: Platelet Count 38 K/mm3 (142-424)
== END ==
PROVIDERS: PCP Family Medicine; Visit Provider Family Medicine
DX: D69.6 Thrombocytopenia, unspecified (principal)
CPT/HCPCS: 36415; 85025

== ENCOUNTER → 2023-05-12 07:13 | Outpatient (CLI) | payer BC, SELFPAY ==
--- NOTE | 2023-05-12 07:18 | XR_ITS ---
FINAL REPORT CLINICAL HISTORY: Lt knee pain FINDINGS: Left knee Three views were obtained. There is no acute fracture or dislocation. There is severe medial compartment degenerative change with severe medial compartment narrowing. There are mild degenerative changes elsewhere. No soft tissue abnormality is identified. IMPRESSION: Degenerative changes, worse in the medial compartment. Reviewed, Interpreted and Dictated by Robert Cruz III, MD Transcribed by Jennifer Montes Authenticated and [facility]
== END ==
PROVIDERS: PCP Family Medicine; Visit Provider Orthopaedic Surgery
DX: M25.562 Pain in left knee (principal)
CPT/HCPCS: 73562

== ENCOUNTER → 2023-06-12 11:31 | Outpatient (CLI) | payer BC, SELFPAY ==
--- NOTE | 2023-06-12 11:52 | XR_ITS ---
FINAL REPORT CLINICAL HISTORY: LOWER ABDOMINAL PAIN FINDINGS: TWO-VIEW ABDOMEN There are multiple air-filled bowel loops in a nonspecific pattern. There is a probable left renal stone measuring 6 mm. There are degenerative changes of the lumbar spine. IMPRESSION: Nonspecific bowel gas pattern. Probable left renal stone. Reviewed, Interpreted and Dictated by Robert Cruz III, MD Transcribed by Jennifer Montes Authenticated and [facility]
[2023-06-12 12:03] LABS: Basophils % 0.4 % (0.1-2.0); Eosinophils # 0.1 K/mm3 (0.0-0.4); Eosinophils % 1.1 % (0.1-12.0); Hematocrit 48.3 % (42.0-52.0); Hemoglobin 15.5 g/dL (14.1-18.0); Lymphocytes # 2.6 K/mm3 (0.7-4.5); Lymphocytes % 26.6 % (10-50); Mean Corpuscular HGB Conc 32.2 g/dL (31.8-35.4); Mean Corpuscular Volume 90.2 fl (80-94); Mean Platelet Volume 9.2 fl (7.4-10.4); Monocytes % 9.9 % (1.7-9.3); Neutrophils # 6.2 K/mm3 (1.8-7.8); Neutrophils % 62.1 % (37.0-80.0); Platelet Count 107 K/mm3 (142-424); Red Blood Count 5.35 M/mm3 (4.60-6.20); Red Cell Distribution Width 17.9 % (11.5-17.5); White Blood Count 9.9 K/mm3 (4.8-10.8)
[2023-06-12 12:38] LABS: Alanine Aminotransferase 45 U/L (12-78); Albumin Level 3.4 g/dl (3.5-5.0); Albumin/Globulin Ratio 1.1 (1.1-1.8); Alkaline Phosphatase 68 U/L (38-126); Anion Gap 6.9 mEq/L (5-15); Aspartate Amino Transferase 40 U/L (17-59); Bilirubin,Total 1.5 mg/dl (0.2-1.3); Blood Urea Nitrogen 29 mg/dl (9-20); Carbon Dioxide 33 mmol/L (22.0-30.0); Chloride 102 mmol/L (98-107); Estimated Glomerular Filt Rate 67 ml/min (>60); GFR (African American) 82 ML/MIN (>60); Glucose 80 mg/dl (74-100); Potassium 3.9 mmoL/L (3.5-5.1); Sodium 138 mmol/L (136-145); Total Protein,Serum 6.4 g/dl (6.3-8.2)
== END ==
PROVIDERS: PCP Physician Assistant; Visit Provider Internal Medicine Medical Oncology
DX: R10.30 Lower abdominal pain, unspecified (principal)
CPT/HCPCS: 36415; 74019; 80053; 85025

== ENCOUNTER → 2023-06-25 10:40 | Outpatient (CLI) | payer BC, SELFPAY ==
[2023-06-25 11:31] LABS: Basophils # 0.1 K/mm3 (0-0.2); Basophils % 0.7 % (0.1-2.0); Eosinophils # 0.3 K/mm3 (0.0-0.4); Eosinophils % 3.8 % (0.1-12.0); Hematocrit 48.3 % (42.0-52.0); Hemoglobin 15.9 g/dL (14.1-18.0); Lymphocytes # 1.8 K/mm3 (0.7-4.5); Lymphocytes % 25.1 % (10-50); Mean Corpuscular HGB Conc 32.9 g/dL (31.8-35.4); Mean Corpuscular Hemoglobin 30.6 pg (27.0-31.2); Mean Corpuscular Volume 92.9 fl (80-94); Mean Platelet Volume 13.4 fl (7.4-10.4); Monocytes # 0.5 K/mm3 (0.1-1.0); Monocytes % 7.4 % (1.7-9.3); Neutrophils # 4.5 K/mm3 (1.8-7.8); Red Blood Count 5.19 M/mm3 (4.60-6.20); Red Cell Distribution Width 17.2 % (11.5-17.5); White Blood Count 7.1 K/mm3 (4.8-10.8)
[2023-06-25 11:42] LABS: INR 1.17 (0.9-1.1); Prothrombin Time 12.5 seconds (10.1-12.5)
[2023-06-25 12:04] LABS: Chloride 100 mmol/L (98-107)
[2023-06-25 12:05] LABS: Potassium 4.1 mmoL/L (3.5-5.1); Sodium 137 mmol/L (136-145)
[2023-06-25 12:07] LABS: Alanine Aminotransferase 33 U/L (12-78); Aspartate Amino Transferase 32 U/L (17-59); Blood Urea Nitrogen 31 mg/dl (9-20); Estimated Glomerular Filt Rate 44 ml/min (>60); GFR (African American) 53 ML/MIN (>60)
[2023-06-25 12:08] LABS: Albumin Level 3.4 g/dl (3.5-5.0); Albumin/Globulin Ratio 1.1 (1.1-1.8); Alkaline Phosphatase 96 U/L (38-126); Anion Gap 12.1 mEq/L (5-15); Bilirubin,Total 1.2 mg/dl (0.2-1.3); Calcium 9.6 mg/dl (8.4-10.2); Carbon Dioxide 29 mmol/L (22.0-30.0); Glucose 115 mg/dl (74-100); Iron 119 ug/dL (49-181); Total Protein,Serum 6.4 g/dl (6.3-8.2)
[2023-06-25 12:17] LABS: Total Iron Binding Capacity 334 ug/dL (261-462)
[2023-06-25 12:43] LABS: Ferritin 160 ng/ml (17.9-464)
[2023-06-25 13:20] LABS: Platelet Count 25 K/mm3 (142-424)
[2023-06-26 09:48] LABS: HBsAg Screen Negative (Negative); HCV Ab Non Reactive (Non Reactive); Hep A Ab, IGM Negative (Negative); Hep A Ab, Total Positive (Negative); Hep B Core Ab, IgM Negative (Negative); Hepatitis B Surf Ab Quant <3.1 mIU/mL (Immunity>9.9)
[2023-06-26 13:04] LABS: AFP, Tumor Marker 5.1 ng/mL (0.0-8.4); Immunoglobulin G, Qn 1109 mg/dL (603-1613)
[2023-06-26 14:21] LABS: Actin (Smooth Muscle) Antibody 5 Units (0-19); Mitochondrial (M2) Antibody <20.0 Units (0.0-20.0)
[2023-06-29 21:27] LABS: Alpha-1-Antitrypsin 201 mg/dL (101-187)
[2023-07-02 10:40] LABS: Antinuclear Antibodies (ANA) Negative
== END ==
PROVIDERS: PCP Family Medicine; Visit Provider Physician Assistant
DX: K74.60 Unspecified cirrhosis of liver (principal)
CPT/HCPCS: 80053; 80074; 81256; 82103; 82104; 82105; 82728; 82784; 83540; 83550; 85025; 85610; 86038; 86225; 86235; 86255; 86256; 86706; 86708

== ENCOUNTER → 2023-07-07 08:29 | Outpatient (CLI) | payer BC, SELFPAY ==
--- NOTE | 2023-07-07 08:34 | US_ITS ---
FINAL REPORT CLINICAL HISTORY: CIRRHOSIS COMPARISON: None FINDINGS: Sonographic images of the right upper quadrant were obtained. The pancreas is partially obscured. There are coarse hepatic echoes noted throughout the liver, compatible with the clinical diagnosis of cirrhosis. The gallbladder appears normal without evidence of gallstones.There is no evidence of biliary ductal dilatation.The common duct measures 3 mm. Limited images of the right kidney are unremarkable. The portal vein measures 13 mm in diameter, the upper limit of normal, with normal directional flow. IMPRESSION: Coarse hepatic echoes compatible with the clinical diagnosis of cirrhosis. Portal vein upper limits of normal in size, with normal directional flow. Reviewed, Interpreted and Dictated by Robert Cruz III, MD Transcribed by Becky Mccarthy Authenticated and [facility]
== END ==
PROVIDERS: PCP Family Medicine; Visit Provider Physician Assistant
DX: K74.60 Unspecified cirrhosis of liver (principal)
CPT/HCPCS: 76705

== ENCOUNTER → 2023-07-13 14:40 | Outpatient (POV) | payer BC, SELFPAY ==
--- NOTE | 2023-07-13 14:46 | EXP.PAIN.OV ---
HPI Data of Consult Patient: new to practice Consult date: 07/13/23 Requesting Physician: Kenia Ortiz APRN Primary Care Provider: Pasquale Girard MD Consult Narrative Reason for consult: Low back pain, left knee pain History of present illness: Mr. Ambrose is a 63 year old male who presents today as a new patient. He is a referral from Dr. Jens Ortiz's office. Today he rates his pain a 9 out of 10. Patient states his pain is all in his left knee which causes his low back and right hip to have worsening pain symptoms. Patient does describe this as a dull achy sensation that has been going on for years and progressively worsened over time. 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 Patient states that he was scheduled for a left knee total replacement by Dr. Ortiz however lab work showed low platelets. Patient states he was diagnosed with cirrhosis and does currently see Dr. Desouza for. Patient is no longer a surgical candidate due to the continued low platelets. Patient has had intra-articular injections in his left knee with no additional improvement. Patient has also tried [id number] Tylenol along with heat and ice and topicals with no additional relief. He states he does also have to be very careful with anything he is prescribed or that he tries to due to worsening his liver function. Patient has seen chiropractor therapy with no change in his symptoms. Patient denies any recent physical therapy. He does state that he tries to do exercise on a daily basis and walks frequently and has done this for more than 12 weeks with no additional relief. He is interested in any help we may be able to provide for his continued left knee pain. Patient does have a history of diabetes, and cardiac dysfunction. 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 His Vernon is [phone]. Its been reviewed and appropriate. CC: Kenia Ortiz APRN [facility] Disclaimer: The information contained in this section may have been updated after the patient was seen, as this information can be updated by other users. Medical History Bigeminy Bradycardia CAD (coronary artery disease) Cardiomyopathy Diastolic dysfunction DM2 (diabetes mellitus, type 2) Frequent PVCs HTN (hypertension) Knee pain Mitral regurgitation PAF (paroxysmal atrial fibrillation) SOB (shortness of breath) Superior mesenteric vein thrombosis Past history Thrombocytopenia Ventricular tachycardia Ventricular tachycardia seen on cafeteria monitor Surgical History History of shoulder surgery Family History Other Cancer Diabetes Hyperlipidemia Hypertension Social History (Updated 07/13/23 @ 15:08 by Leticia Pagan RN) Smoking Status: Never smoker alcohol intake: current substance use type: denies use current occupational status: employed Travel in the last 8 weeks: None household members: significant other Review of Systems Review of Systems Review of systems:: pertinent systems reviewed and negative unless documented below Review of systems (narrative): Review of Systems: General: No recent weight changes, no fever, no sleep disturbances Respiratory: No cough, no shortness of air, no recurring pulmonary infections Cardiovascular/peripheral vascular: No chest pain, no palpitations, no edema, no shortness of breath Gastrointestinal: No new onset incontinence, normal bowel movements reported Genitourinary: No new onset incontinence Musculoskeletal: Low back pain, left knee pain right hip pain Psychiatric: [Normal mood/affect] Neurological: [Denies weakness in extremities], [denies balance issues] Meds Home Medications and Allergies Home Medications Medication Instructions Rec
[2023-07-13 15:07] VITALS: BP 139/55; PULSE 49; RESP 18; O2SAT 97; BMI 31.6
== END ==
PROVIDERS: PCP Family Medicine; Visit Provider Nurse Practitioner Family
DX: M17.12 Unilateral primary osteoarthritis, left knee (principal); M25.562 Pain in left knee; G89.29 Other chronic pain; M51.16 Intervertebral disc disorders with radiculopathy, lumbar region; M54.50 Low back pain, unspecified
CPT/HCPCS: 99202; G0463

== ENCOUNTER → 2023-07-29 14:10 | Outpatient (POV) | payer BC, SELFPAY ==
[2023-07-29 14:32] VITALS: BP 177/60; PULSE 82; RESP 18; O2SAT 100; BMI 31.9
--- NOTE | 2023-07-29 14:52 | EXP.PAIN.SOA ---
[facility] Pain Management SOAP Note Subjective:: Patient is a pleasant 63-year-old male who presents today for denial genicular nerve block. We are currently treating the patient for degenerative disc disease of lumbar spine with lumbar radiculopathy symptoms, left knee pain. Today he rates his pain a 9 out of 10. Patient denies any new trauma or injury. He denies any change to location or type of pain he experiences. Patient does state he continues to have significant left knee pain that does cause significant disability and limits his ability perform activities of daily living. Patient does have chronically low platelets which makes him a nonsurgical candidate for replacement. Patient does have a history of diabetes and cardiac dysfunction and has regular hydraulics engineer follow-ups every 6 months. His Vernon is [phone]. Its been reviewed and appropriate. Review of Systems: General: No recent weight changes, no fever, no sleep disturbances Respiratory: No cough, no shortness of air, no recurring pulmonary infections Cardiovascular/peripheral vascular: No chest pain, no palpitations, no edema, no shortness of breath Gastrointestinal: No new onset incontinence, normal bowel movements reported Genitourinary: No new onset incontinence Musculoskeletal: Left knee pain Psychiatric: [Normal mood/affect] Neurological: [Denies weakness in extremities], [denies balance issues] Objective:: Physical Exam: General: Alert and oriented x3, no acute distress, pleasant and cooperative Lungs: Respirations even and unlabored, symmetrical chest expansion Eyes: PERRL Musculoskeletal: Flexion and extension of left knee somewhat guarded secondary to pain, [antalgic gait noted] Neurological: Speech clear, no gross sensory deficit Assessment:: Degenerative disc disease of lumbar spine with lumbar radiculopathy symptoms, left knee pain Plan:: Patient continues to experience significant pain in his left knee with limited range of motion. I have discussed with the patient that I will work on getting prices for the genicular nerve block at both here at our [facility] location and our [facility] location. I have also counseled the patient that it may be beneficial for us to resubmit to insurance for the genicular block at the [place] location as it is a outpatient clinic and may be more likely to be approved by insurance. I have counseled the patient that I we will call and follow up with him regarding what I am able to find out and get scheduled. We will plan on resubmitting the patient for a left genicular nerve block. Patient has been instructed to contact the clinic with any concerns before the next appointment. Dr. Ramos has reviewed this note and agrees with this plan of care. This note was dictated using voice recognition software and make contain errors or omissions. [facility] Disclaimer: The information contained in this section may have been updated after the patient was seen, as this information can be updated by other users. 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
== END ==
PROVIDERS: PCP Family Medicine; Visit Provider Nurse Practitioner Family
DX: M25.562 Pain in left knee (principal); M51.16 Intervertebral disc disorders with radiculopathy, lumbar region
CPT/HCPCS: 99212; G0463

== ENCOUNTER 2023-08-01 11:55 | Emergency (ER) | payer BC, SELFPAY ==
[2023-08-01 11:56] VITALS: BP 149/85; PULSE 114; RESP 16; TEMP 36.4; O2SAT 99; BMI 31.9
[2023-08-01 12:00] VITALS: BP 149/85; PULSE 115; O2SAT 98
--- NOTE | 2023-08-01 12:14 | CT_ITS ---
PROCEDURE INFORMATION: Exam: CT Abdomen And Pelvis With Contrast Exam date and time: 08/01/2023 12:32 PM Age: 63 years old Clinical indication: Other: Hernia; Additional info: Strangulated hernia TECHNIQUE: Imaging protocol: Computed tomography of the abdomen and pelvis with contrast. Radiation optimization: All CT scans at this facility use at least one of these dose optimization techniques: automated exposure control; mA and/or kV adjustment per patient size (includes targeted exams where dose is matched to clinical indication); or iterative reconstruction. Contrast material: ISOVUE; Contrast volume: 75 ml; Contrast route: IV; REPORTING DATA: Count of CT and Cardiac NM exams in prior 12 months: This patient has received 0 known CTs and 0 known cardiac nuclear medicine studies in the 12 months prior to the current study. COMPARISON: CT ABDOMEN PELVIS WO/W CON 08/01/2022 8:51 AM FINDINGS: Pleural spaces: Small left pleural effusion. Liver: Cirrhotic liver, stable. Gallbladder and bile ducts: Normal. No calcified stones. No ductal dilation. Pancreas: Normal. No ductal dilation. Spleen: Normal. No splenomegaly. Adrenal glands: Normal. No mass. Kidneys and ureters: Normal. No hydronephrosis. Stomach and bowel: Unremarkable. No obstruction. No mucosal thickening. Appendix: No evidence of appendicitis. Intraperitoneal space: Mild abdominal and pelvic ascites. Vasculature: Unremarkable. No abdominal aortic aneurysm. Lymph nodes: Unremarkable. No enlarged lymph nodes. Urinary bladder: Unremarkable as visualized. Reproductive: Unremarkable as visualized. Bones/joints: Unremarkable. No acute fracture. Soft tissues: Small-bowel obstruction with transition zone at the umbilical hernia. Ascites adjacent to herniated bowel in the hernia sac. Compatible with at least incarcerated hernia. IMPRESSION: 1. Cirrhotic liver, stable. 2. Small-bowel obstruction with transition zone at the umbilical hernia. Ascites adjacent to herniated bowel in the hernia sac. Compatible with at least incarcerated hernia. 3. Mild abdominal and pelvic ascites.
--- NOTE | 2023-08-01 12:14 | PC.NURSE ---
paging for ed
--- NOTE | 2023-08-01 12:15 | PC.NURSE ---
speaking with surgeon
--- NOTE | 2023-08-01 12:15 | PC.NURSE ---
call rad to let them know want to do emergent scan without waiting for labs
--- NOTE | 2023-08-01 12:20 | PC.NURSE ---
calling for ed to ed transfer per
--- NOTE | 2023-08-01 12:21 | HMH.EDGENADL ---
Discharge Plan Disposition Patient Disposition: Xfer Short-Term Hosp Condition: Fair Prescriptions Prescriptions: No Action cholecalciferol (vitamin D3) 125 mcg (5,000 unit) capsule 125 mcg PO DAILY losartan 100 mg tablet 100 mg PO DAILY Qty: 90 1RF Xarelto 20 mg tablet 20 mg PO DIRECTED Patient Comments: TAKE 1 TABLET BY MOUTH EVERY DAY IN THE EVENING FOR 30 DAYS bisoprolol fumarate 5 mg tablet 5 mg PO DAILY magnesium oxide 400 mg (241.3 mg magnesium) tablet 400 mg PO DAILY ferrous sulfate 325 mg (65 mg iron) tablet 325 mg PO BID pantoprazole 40 mg tablet,delayed release (DR/EC) 40 mg PO DAILY Patient Comments: TAKE 1 TABLET BY MOUTH EVERY DAY furosemide 40 mg tablet 40 mg PO BID Referrals Follow up/Referrals: Pasquale Girard MD [Primary Care Provider] - See instructions Clinical Impressions Clinical Impression: Hernia with strangulation, Thrombocytopenia, Cirrhosis Discharge ED Provider: Kenia Preciado General Adult HPI General Chief complaint: Nausea/Vomiting/Diarrhea Stated complaint: belly button pain Time Seen by Provider: 08/01/23 12:10 Mode of Arrival: Ambulatory Source of Information: Patient Limitations: No Limitations Description of Symptoms (Recalled from ER Triage Doc. by RN): Patient states that his belly button started protruting approx 6 weeks ago and then last night it turned purple and red and he got nauseated. Patient states he has not ate or drank anything in 48 hours. History of Present Illness HPI narrative: This patient is a 63-year-old male with a history of hypertension, type 2 diabetes, CAD, hyperlipidemia, and cirrhosis with chronic thrombocytopenia presenting to the emergency department for evaluation with concern for abdominal pain. Patient reports that he noted a swollen area to his bellybutton approximate approximate 6 weeks ago, and 3 days ago it became extremely painful. Since then, he has not been able to tolerate oral intake. He states that he has vomiting even with sips of water and has had frequent belching. He is not passing gas or having bowel movements. He notes that yesterday, the skin started turning black over his bellybutton. He has not been able to take any of his medications as a result of this. He denies fevers, chills, or other concerns. Related Data Home Medications Medication Instructions Recorded Confirmed cholecalciferol (vitamin D3) 125 125 mcg PO DAILY Supplement 10/30/22 08/01/23 mcg (5,000 unit) capsule rivaroxaban 20 mg tablet (Xarelto) 20 mg PO DIRECTED Blood Thinner 05/12/23 07/29/23 bisoprolol fumarate 5 mg tablet 5 mg PO DAILY High Blood Pressure 07/13/23 08/01/23 ferrous sulfate 325 mg (65 mg 325 mg PO BID Supplement 07/13/23 08/01/23 iron) tablet magnesium oxide 400 mg (241.3 mg 400 mg PO DAILY Supplement 07/13/23 08/01/23 magnesium) tablet furosemide 40 mg tablet 40 mg PO BID Fluid 08/01/23 08/01/23 pantoprazole 40 mg tablet,delayed 40 mg PO DAILY Acid Reflux 08/01/23 08/01/23 release Previous Rx's Medication Instructions Recorded losartan 100 mg tablet 100 mg PO DAILY High blood 05/04/23 pressure #90 tabs Allergies Allergy/AdvReac Type Severity Reaction Status Date / Time No Known Allergies Allergy Verified 06/16/23 10:00 [facility] Disclaimer: The information contained in this section may have been updated after the patient was seen, as this information can be updated by other users. Medical History Bigeminy Bradycardia CAD (coronary artery disease) Cardiomyopathy Diastolic dysfunction DM2 (diabetes mellitus, type 2) Frequent PVCs HTN (hypertension) Knee pain Mitral regurgitation PAF (paroxysmal atrial fibrillation) SOB (shortness of breath) Superior mesenteric vein thrombosis Thrombocytopenia Ventricular tachycardia Ventricular tachycardia seen on panel monitor Surgical
--- NOTE | 2023-08-01 12:23 | PC.NURSE ---
spoke with roland storm let her know to go ahead and power share images to [place] once take and burn a disk
[2023-08-01 12:25] LABS: Basophils % 0.1 % (0.1-2.0); Chloride 103 mmol/L (98-107); Eosinophils % 0.2 % (0.1-12.0); Hematocrit 44.4 % (42.0-52.0); Hemoglobin 14.3 g/dL (14.1-18.0); Lymphocytes # 1.8 K/mm3 (0.7-4.5); Mean Corpuscular HGB Conc 32.2 g/dL (31.8-35.4); Mean Corpuscular Hemoglobin 30.8 pg (27.0-31.2); Mean Corpuscular Volume 95.8 fl (80-94); Mean Platelet Volume 12.1 fl (7.4-10.4); Monocytes # 1.2 K/mm3 (0.1-1.0); Monocytes % 6.7 % (1.7-9.3); Neutrophils # 15.2 K/mm3 (1.8-7.8); Platelet Count 71 K/mm3 (142-424); Red Blood Count 4.64 M/mm3 (4.60-6.20); Red Cell Distribution Width 14.9 % (11.5-17.5); White Blood Count 18.3 K/mm3 (4.8-10.8)
--- NOTE | 2023-08-01 12:25 | PC.NURSE ---
pt to ct via wheelchair
[2023-08-01 12:26] LABS: Sodium 142 mmol/L (136-145)
--- NOTE | 2023-08-01 12:26 | PC.NURSE ---
transferred center stated once ct scan was done and power shared and they have reviewed images they will call back to speak with
[2023-08-01 12:28] LABS: Alanine Aminotransferase 36 U/L (12-78); Alkaline Phosphatase 72 U/L (38-126); Aspartate Amino Transferase 42 U/L (17-59); Bilirubin,Total 4.4 mg/dl (0.2-1.3); Blood Urea Nitrogen 20 mg/dl (9-20); Creatinine Clearance Estimated 97 mL/min (50-200); Estimated Glomerular Filt Rate 61 ml/min (>60); GFR (African American) 74 ML/MIN (>60)
--- NOTE | 2023-08-01 12:28 | PC.NURSE ---
call made to [employer] for possible air transport. [place] [facility] available with good weather. [place] [place].
[2023-08-01 12:29] LABS: Albumin Level 3.7 g/dl (3.5-5.0); Calcium 9.7 mg/dl (8.4-10.2); Carbon Dioxide 28 mmol/L (22.0-30.0); Globulin 3.8 g/dL (1.3-3.2); Glucose 140 mg/dl (74-100); MANUAL DIFFERENTIAL MANUAL DIFFERENTIAL (MANUAL DIFF); Total Protein,Serum 7.5 g/dl (6.3-8.2)
--- NOTE | 2023-08-01 12:35 | PC.NURSE ---
pt arrived back to room from ct
--- NOTE | 2023-08-01 12:36 | PC.NURSE ---
verified with block trader on power share and making disk she stated there were doing so once back to rad area takes few minutes for images to load
[2023-08-01 12:39] LABS: Lymphocytes % 15 % (10-50); Monocytes % 8 % (2-9); Neutrophils % 77 % (42-76); Platelet Estimate Moderate Decrease; RBC Morphology Normal; Total Cells Counted 100
--- NOTE | 2023-08-01 12:39 | PC.NURSE ---
from md's speaking with from our ed about pt transfer
--- NOTE | 2023-08-01 12:43 | PC.NURSE ---
at [facility] has accepted pt
--- NOTE | 2023-08-01 12:44 | PC.NURSE ---
called [facility] to let them know helicopter will be here in 20 minutes
--- NOTE | 2023-08-01 12:44 | PC.NURSE ---
speaking with pt about flying to [place]
--- NOTE | 2023-08-01 12:46 | PC.NURSE ---
pt was accepted at ER. [place] [facility] en route. ETA 20 mins
[2023-08-01 12:49] LABS: Activated Partial Thrombo Time 26.2 seconds (22.8-30.6); INR 1.18 (0.9-1.1); Prothrombin Time 12.6 seconds (10.1-12.5)
--- NOTE | 2023-08-01 12:49 | PC.NURSE ---
[facility] outside waiting for chopper to land
--- NOTE | 2023-08-01 12:52 | PC.NURSE ---
attempted NG tube x2 with no success at this time. PT asked to stop at this time.
--- NOTE | 2023-08-01 12:53 | PC.NURSE ---
Report called to Ben at [facility].
--- NOTE | 2023-08-01 13:00 | PC.NURSE ---
surgeon at [facility] speaking with pt is also at [facility]
--- NOTE | 2023-08-01 13:08 | PC.NURSE ---
[facility] has arrived for transfer
[2023-08-01 13:20] VITALS: BP 149/85; PULSE 115; RESP 16; TEMP 36.4; O2SAT 98
[2023-08-01 16:28] LABS: Reflex Lactic Add Lactic Reflex
== END 2023-08-01 13:23 | disposition short-term general hospital (02) ==
PROVIDERS: Emergency Provider Emergency Medicine; PCP Family Medicine
DX: K42.0 Umbilical hernia with obstruction, without gangrene (principal); D69.6 Thrombocytopenia, unspecified; K74.60 Unspecified cirrhosis of liver; I25.10 Atherosclerotic heart disease of native coronary artery without angina pectoris; I42.9 Cardiomyopathy, unspecified; E11.9 Type 2 diabetes mellitus without complications; I10 Essential (primary) hypertension; I34.0 Nonrheumatic mitral (valve) insufficiency; I48.0 Paroxysmal atrial fibrillation; E78.5 Hyperlipidemia, unspecified
CPT/HCPCS: 74177; 80053; 83605; 85007; 85025; 85610; 85730; 86850; 87040; 96361; 96374; 96375; 99291; J2405; J2543; Q9967

== ENCOUNTER → 2023-09-15 11:08 | Outpatient (CLI) | payer BC, SELFPAY ==
[2023-09-15 11:36] LABS: Basophils % 0.4 % (0.1-2.0); Eosinophils # 0.3 K/mm3 (0.0-0.4); Lymphocytes # 1.5 K/mm3 (0.7-4.5); Lymphocytes % 27.6 % (10-50); Mean Corpuscular HGB Conc 34.2 g/dL (31.8-35.4); Mean Corpuscular Volume 96.6 fl (80-94); Mean Platelet Volume 13.7 fl (7.4-10.4); Monocytes # 0.6 K/mm3 (0.1-1.0); Monocytes % 10.6 % (1.7-9.3); Neutrophils # 3.1 K/mm3 (1.8-7.8); Neutrophils % 56.4 % (37.0-80.0); Red Blood Count 3.93 M/mm3 (4.60-6.20); Red Cell Distribution Width 13.4 % (11.5-17.5); White Blood Count 5.5 K/mm3 (4.8-10.8)
[2023-09-15 11:56] LABS: Platelet Count 17 K/mm3 (142-424)
[2023-09-15 12:11] LABS: Chloride 109 mmol/L (98-107); Potassium 3.8 mmoL/L (3.5-5.1); Sodium 138 mmol/L (136-145)
[2023-09-15 12:13] LABS: Alanine Aminotransferase 24 U/L (12-78); Aspartate Amino Transferase 36 U/L (17-59); Blood Urea Nitrogen 10 mg/dl (9-20); Estimated Glomerular Filt Rate 97 ml/min (>60); GFR (African American) 118 ML/MIN (>60)
[2023-09-15 12:14] LABS: Albumin Level 3.5 g/dl (3.5-5.0); Albumin/Globulin Ratio 1.2 (1.1-1.8); Alkaline Phosphatase 67 U/L (38-126); Anion Gap 10.8 mEq/L (5-15); Bilirubin,Total 1.9 mg/dl (0.2-1.3); Calcium 8.9 mg/dl (8.4-10.2); Carbon Dioxide 22 mmol/L (22.0-30.0); Glucose 98 mg/dl (74-100); Total Protein,Serum 6.5 g/dl (6.3-8.2)
[2023-09-15 12:38] VITALS: BMI 31.0
[2023-09-15 17:10] LABS: Vitamin B12 710 pg/mL (239-931)
[2023-09-15 17:11] LABS: Folate 7.42 ng/mL
== END ==
PROVIDERS: PCP Family Medicine; Visit Provider Internal Medicine Medical Oncology
DX: D50.9 Iron deficiency anemia, unspecified (principal)
CPT/HCPCS: 36415; 80053; 82607; 82746; 85025

== ENCOUNTER 2023-09-22 08:59 | Outpatient (CLI) | payer BC, SELFPAY ==
[2023-09-22 09:04] VITALS: BMI 31.0
--- NOTE | 2023-09-22 09:12 | PC.NURSE ---
0912-collected labs via venipuncture stick with butterfly needle in right ac; pt d/c home.
[2023-09-22 09:28] LABS: Eosinophils % 0.2 % (0.1-12.0); Hematocrit 40.5 % (42.0-52.0); Hemoglobin 13.9 g/dL (14.1-18.0); Lymphocytes # 0.7 K/mm3 (0.7-4.5); Lymphocytes % 10.8 % (10-50); Mean Corpuscular HGB Conc 34.3 g/dL (31.8-35.4); Mean Corpuscular Hemoglobin 32.2 pg (27.0-31.2); Mean Platelet Volume 10.6 fl (7.4-10.4); Monocytes # 0.5 K/mm3 (0.1-1.0); Monocytes % 7.3 % (1.7-9.3); Neutrophils # 5.6 K/mm3 (1.8-7.8); Neutrophils % 81.7 % (37.0-80.0); Platelet Count 90 K/mm3 (142-424); White Blood Count 6.8 K/mm3 (4.8-10.8)
== END 2023-09-22 09:15 | disposition home or self-care (01) ==
LOC: INF 09:00
PROVIDERS: PCP Family Medicine; Visit Provider Internal Medicine Medical Oncology
DX: D69.6 Thrombocytopenia, unspecified (principal)
CPT/HCPCS: 36415; 85025

== ENCOUNTER 2023-10-09 07:01 | Outpatient (CLI) | payer BC, SELFPAY ==
[2023-10-09 08:05] VITALS: BMI 31.0
[2023-10-09 08:18] LABS: Eosinophils % 0.5 % (0.1-12.0); Hematocrit 37.5 % (42.0-52.0); Hemoglobin 12.6 g/dL (14.1-18.0); Lymphocytes # 0.8 K/mm3 (0.7-4.5); Lymphocytes % 10.2 % (10-50); Mean Corpuscular HGB Conc 33.5 g/dL (31.8-35.4); Mean Corpuscular Hemoglobin 31.4 pg (27.0-31.2); Mean Corpuscular Volume 93.9 fl (80-94); Mean Platelet Volume 9.9 fl (7.4-10.4); Monocytes # 0.3 K/mm3 (0.1-1.0); Monocytes % 3.9 % (1.7-9.3); Neutrophils # 6.4 K/mm3 (1.8-7.8); Neutrophils % 85.4 % (37.0-80.0); Platelet Count 101 K/mm3 (142-424); Red Cell Distribution Width 13.4 % (11.5-17.5); White Blood Count 7.4 K/mm3 (4.8-10.8)
[2023-10-09 08:21] LABS: MANUAL DIFFERENTIAL MANUAL DIFFERENTIAL (MANUAL DIFF)
[2023-10-09 08:25] LABS: Chloride 107 mmol/L (98-107)
[2023-10-09 08:26] LABS: Potassium 4.1 mmoL/L (3.5-5.1); Sodium 135 mmol/L (136-145)
[2023-10-09 08:28] LABS: Alanine Aminotransferase 29 U/L (12-78); Aspartate Amino Transferase 37 U/L (17-59); Blood Urea Nitrogen 17 mg/dl (9-20); Creatinine Clearance Estimated 116 mL/min (50-200); Estimated Glomerular Filt Rate 97 ml/min (>60); GFR (African American) 118 ML/MIN (>60)
[2023-10-09 08:29] LABS: Albumin Level 3.5 g/dl (3.5-5.0); Albumin/Globulin Ratio 1.1 (1.1-1.8); Alkaline Phosphatase 73 U/L (38-126); Anion Gap 9.1 mEq/L (5-15); Calcium 8.7 mg/dl (8.4-10.2); Carbon Dioxide 23 mmol/L (22.0-30.0); Globulin 3.2 g/dL (1.3-3.2); Glucose 121 mg/dl (74-100); Total Protein,Serum 6.7 g/dl (6.3-8.2)
--- NOTE | 2023-10-09 08:37 | PC.NURSE ---
0810- cbc and cmp drawn from right ac with a butterfly needle. needle removed and coban applied. pt tolerated well.
[2023-10-09 09:01] LABS: Lymphocytes % 10 % (10-50); Monocytes % 3 % (2-9); Neutrophils % 87 % (42-76); Platelet Estimate Slight Decrease; Total Cells Counted 100
[2023-10-09 09:02] LABS: RBC Morphology Normal
== END 2023-10-09 08:15 | disposition home or self-care (01) ==
LOC: INF 07:02
PROVIDERS: PCP Family Medicine; Visit Provider Internal Medicine Medical Oncology
DX: D50.9 Iron deficiency anemia, unspecified (principal)
CPT/HCPCS: 36415; 80053; 85007; 85025

== ENCOUNTER 2023-10-14 07:07 | Outpatient (CLI) | payer BC, SELFPAY ==
[2023-10-14 08:29] VITALS: BMI 31.0
[2023-10-14 08:53] LABS: Basophils % 0.5 % (0.1-2.0); Eosinophils # 0.3 K/mm3 (0.0-0.4); Eosinophils % 5.1 % (0.1-12.0); Hematocrit 41.3 % (42.0-52.0); Hemoglobin 13.8 g/dL (14.1-18.0); Lymphocytes # 1.4 K/mm3 (0.7-4.5); Lymphocytes % 25.8 % (10-50); Mean Corpuscular HGB Conc 33.5 g/dL (31.8-35.4); Mean Corpuscular Hemoglobin 31.4 pg (27.0-31.2); Mean Corpuscular Volume 93.8 fl (80-94); Mean Platelet Volume 10.2 fl (7.4-10.4); Monocytes # 0.5 K/mm3 (0.1-1.0); Monocytes % 9.6 % (1.7-9.3); Neutrophils # 3.3 K/mm3 (1.8-7.8); Platelet Count 90 K/mm3 (142-424); Red Blood Count 4.41 M/mm3 (4.60-6.20); Red Cell Distribution Width 13.6 % (11.5-17.5); White Blood Count 5.5 K/mm3 (4.8-10.8)
--- NOTE | 2023-10-14 09:26 | PC.NURSE ---
10/14/23 0830 pt presents for lab check. Venipuncture performed per Regina Samayoa RN using butterfly access needle to pt's rt ac x 1 stick. Blood drawn for labs and needle was withdrawn and site secured with 2x2 gauze and coban. Specimen sent to lab for analysis.
== END 2023-10-14 08:40 | disposition home or self-care (01) ==
LOC: INF 07:08
PROVIDERS: PCP Family Medicine; Visit Provider Internal Medicine Medical Oncology
DX: D69.6 Thrombocytopenia, unspecified (principal)
CPT/HCPCS: 36415; 85025

== ENCOUNTER 2023-10-28 07:57 | Outpatient (CLI) | payer BC, SELFPAY ==
[2023-10-28 08:08] VITALS: BMI 31.0
[2023-10-28 08:21] LABS: Basophils % 0.2 % (0.1-2.0); Eosinophils # 0.2 K/mm3 (0.0-0.4); Eosinophils % 3.4 % (0.1-12.0); Hematocrit 38.2 % (42.0-52.0); Lymphocytes # 1.2 K/mm3 (0.7-4.5); Lymphocytes % 21.9 % (10-50); Mean Corpuscular Hemoglobin 30.9 pg (27.0-31.2); Mean Corpuscular Volume 90.8 fl (80-94); Mean Platelet Volume 13.2 fl (7.4-10.4); Monocytes # 0.4 K/mm3 (0.1-1.0); Monocytes % 7.4 % (1.7-9.3); Neutrophils # 3.8 K/mm3 (1.8-7.8); Neutrophils % 67.1 % (37.0-80.0); Red Cell Distribution Width 13.7 % (11.5-17.5); White Blood Count 5.7 K/mm3 (4.8-10.8)
[2023-10-28 08:27] LABS: Platelet Count 27 K/mm3 (142-424)
[2023-10-28 08:30] LABS: Alanine Aminotransferase 24 U/L (12-78); Albumin Level 3.3 g/dl (3.5-5.0); Albumin/Globulin Ratio 1.1 (1.1-1.8); Alkaline Phosphatase 68 U/L (38-126); Aspartate Amino Transferase 32 U/L (17-59); Blood Urea Nitrogen 13 mg/dl (9-20); Calcium 8.3 mg/dl (8.4-10.2); Carbon Dioxide 24 mmol/L (22.0-30.0); Chloride 105 mmol/L (98-107); Creatinine Clearance Estimated 116 mL/min (50-200); Estimated Glomerular Filt Rate 114 ml/min (>60); GFR (African American) 137 ML/MIN (>60); Globulin 2.9 g/dL (1.3-3.2); Glucose 107 mg/dl (74-100); Potassium 3.9 mmoL/L (3.5-5.1); Total Protein,Serum 6.2 g/dl (6.3-8.2)
[2023-10-28 08:38] LABS: Anion Gap 7.9 mEq/L (5-15); Sodium 133 mmol/L (136-145)
--- NOTE | 2023-10-28 08:46 | PC.NURSE ---
0813- cbc and cmp drawn per MD order via butterfly needle in left ac. needle removed and coban applied. pt tolerated well and is going to oncology appt at this time.
== END 2023-10-28 08:20 | disposition home or self-care (01) ==
LOC: INF 07:58
PROVIDERS: PCP Registered Nurse; Visit Provider Internal Medicine Medical Oncology
DX: D69.6 Thrombocytopenia, unspecified (principal)
CPT/HCPCS: 36415; 80053; 85025

== ENCOUNTER 2023-11-04 08:05 | Outpatient (CLI) | payer BC, SELFPAY ==
[2023-11-04 08:12] VITALS: BMI 31.1
--- NOTE | 2023-11-04 08:15 | PC.NURSE ---
0815-ed travis collected labs via venipuncture stick with butterfly needle in right ac;pt to d/c home and md to call with results.
[2023-11-04 08:42] LABS: Basophils % 0.1 % (0.1-2.0); Eosinophils % 0.3 % (0.1-12.0); Hemoglobin 14.9 g/dL (14.1-18.0); Lymphocytes # 1.1 K/mm3 (0.7-4.5); Lymphocytes % 9.6 % (10-50); Mean Corpuscular HGB Conc 33.7 g/dL (31.8-35.4); Mean Platelet Volume 10.4 fl (7.4-10.4); Monocytes # 0.7 K/mm3 (0.1-1.0); Monocytes % 6.5 % (1.7-9.3); Neutrophils # 9.2 K/mm3 (1.8-7.8); Neutrophils % 83.5 % (37.0-80.0); Platelet Count 97 K/mm3 (142-424); Red Blood Count 4.79 M/mm3 (4.60-6.20); Red Cell Distribution Width 13.7 % (11.5-17.5); White Blood Count 11.1 K/mm3 (4.8-10.8)
== END 2023-11-04 08:16 | disposition home or self-care (01) ==
LOC: INF 08:06
PROVIDERS: PCP Family Medicine; Visit Provider Internal Medicine Medical Oncology
DX: D69.6 Thrombocytopenia, unspecified (principal)
CPT/HCPCS: 36415; 85025

== ENCOUNTER 2023-11-10 08:42 | Outpatient (CLI) | payer BC, SELFPAY ==
[2023-11-10 08:46] VITALS: BMI 31.2
[2023-11-10 09:05] LABS: Basophils % 0.2 % (0.1-2.0); Eosinophils # 0.1 K/mm3 (0.0-0.4); Eosinophils % 1.6 % (0.1-12.0); Hematocrit 41.5 % (42.0-52.0); Hemoglobin 13.8 g/dL (14.1-18.0); Lymphocytes # 1.7 K/mm3 (0.7-4.5); Lymphocytes % 21.2 % (10-50); Mean Corpuscular HGB Conc 33.2 g/dL (31.8-35.4); Mean Corpuscular Hemoglobin 30.5 pg (27.0-31.2); Mean Corpuscular Volume 91.8 fl (80-94); Mean Platelet Volume 9.8 fl (7.4-10.4); Monocytes # 0.9 K/mm3 (0.1-1.0); Monocytes % 10.8 % (1.7-9.3); Neutrophils # 5.4 K/mm3 (1.8-7.8); Neutrophils % 66.2 % (37.0-80.0); Red Blood Count 4.52 M/mm3 (4.60-6.20); Red Cell Distribution Width 13.9 % (11.5-17.5); White Blood Count 8.1 K/mm3 (4.8-10.8)
[2023-11-10 09:13] LABS: Platelet Count 6 K/mm3 (142-424)
--- NOTE | 2023-11-10 10:10 | PC.NURSE ---
0853 Patient here for labs only. CBC obtained via venipuncture to R AC x1 stick with butterfly needle. Patient tolerated well.
== END 2023-11-10 09:00 | disposition home or self-care (01) ==
LOC: INF 08:42
PROVIDERS: PCP Family Medicine; Visit Provider Internal Medicine Medical Oncology
DX: D69.3 Immune thrombocytopenic purpura (principal)
CPT/HCPCS: 36415; 85025

== ENCOUNTER 2023-11-11 08:07 | Outpatient (CLI) | payer BC, SELFPAY ==
[2023-11-11 08:14] VITALS: BMI 31.1
--- NOTE | 2023-11-11 08:18 | PC.NURSE ---
0818-ed travis collected cbc recheck via venipuncture stick with butterfly needle in right ac;pt to wait on results .
[2023-11-11 08:27] LABS: Basophils % 0.1 % (0.1-2.0); Eosinophils % 0.2 % (0.1-12.0); Hematocrit 40.9 % (42.0-52.0); Hemoglobin 13.8 g/dL (14.1-18.0); Lymphocytes # 1.1 K/mm3 (0.7-4.5); Lymphocytes % 9.4 % (10-50); Mean Corpuscular HGB Conc 33.7 g/dL (31.8-35.4); Mean Corpuscular Hemoglobin 30.5 pg (27.0-31.2); Mean Corpuscular Volume 90.4 fl (80-94); Mean Platelet Volume 15.7 fl (7.4-10.4); Monocytes # 0.4 K/mm3 (0.1-1.0); Monocytes % 3.7 % (1.7-9.3); Neutrophils # 10.5 K/mm3 (1.8-7.8); Neutrophils % 86.7 % (37.0-80.0); Red Blood Count 4.52 M/mm3 (4.60-6.20); Red Cell Distribution Width 14.1 % (11.5-17.5); White Blood Count 12.1 K/mm3 (4.8-10.8)
[2023-11-11 08:33] LABS: Platelet Count 13 K/mm3 (142-424)
[2023-11-11 08:34] LABS: MANUAL DIFFERENTIAL MANUAL DIFFERENTIAL (MANUAL DIFF)
[2023-11-11 11:38] LABS: Lymphocytes % 5 % (10-50); Monocytes % 6 % (2-9); Neutrophils % 87 % (42-76); Total Cells Counted 100
[2023-11-11 11:40] LABS: Platelet Estimate Marked Decrease; RBC Morphology Normal
== END 2023-11-11 08:40 | disposition home or self-care (01) ==
LOC: INF 08:07
PROVIDERS: PCP Family Medicine; Visit Provider Internal Medicine Medical Oncology
DX: D69.3 Immune thrombocytopenic purpura (principal)
CPT/HCPCS: 36415; 85007; 85025

== ENCOUNTER 2023-11-17 07:42 | Outpatient (CLI) | payer BC, SELFPAY ==
[2023-11-17 08:10] VITALS: BMI 31.1
[2023-11-17 08:24] LABS: Basophils % 0.1 % (0.1-2.0); Eosinophils # 0.1 K/mm3 (0.0-0.4); Eosinophils % 0.9 % (0.1-12.0); Hematocrit 43.9 % (42.0-52.0); Hemoglobin 14.3 g/dL (14.1-18.0); Lymphocytes # 1.9 K/mm3 (0.7-4.5); Lymphocytes % 15.8 % (10-50); Mean Corpuscular HGB Conc 32.6 g/dL (31.8-35.4); Mean Corpuscular Hemoglobin 29.9 pg (27.0-31.2); Mean Corpuscular Volume 91.7 fl (80-94); Mean Platelet Volume 9.3 fl (7.4-10.4); Monocytes # 0.5 K/mm3 (0.1-1.0); Monocytes % 3.7 % (1.7-9.3); Neutrophils # 9.6 K/mm3 (1.8-7.8); Neutrophils % 79.4 % (37.0-80.0); Platelet Count 77 K/mm3 (142-424); Red Blood Count 4.79 M/mm3 (4.60-6.20); Red Cell Distribution Width 14.2 % (11.5-17.5)
--- NOTE | 2023-11-17 10:13 | PC.NURSE ---
0815- cbc and hep C drawn per MD order at this time via butterfly needle in right ac. needle removed and coban applied. pt tolerated well.
[2023-11-18 10:22] LABS: Hepatitis C Antibody Non Reactive
== END 2023-11-17 08:20 | disposition home or self-care (01) ==
LOC: INF 07:43
PROVIDERS: PCP Family Medicine; Visit Provider Internal Medicine Medical Oncology
DX: D69.3 Immune thrombocytopenic purpura (principal)
CPT/HCPCS: 36415; 85025; 87380

== ENCOUNTER 2023-11-26 07:54 | Outpatient (CLI) | payer BC, SELFPAY ==
[2023-11-26 08:14] VITALS: BMI 31.8
[2023-11-26 08:28] LABS: Basophils % 0.4 % (0.1-2.0); Eosinophils # 0.4 K/mm3 (0.0-0.4); Eosinophils % 3.4 % (0.1-12.0); Hematocrit 44.4 % (42.0-52.0); Hemoglobin 14.8 g/dL (14.1-18.0); Lymphocytes # 1.9 K/mm3 (0.7-4.5); Lymphocytes % 17.3 % (10-50); Mean Corpuscular HGB Conc 33.4 g/dL (31.8-35.4); Mean Corpuscular Hemoglobin 30.5 pg (27.0-31.2); Mean Corpuscular Volume 91.3 fl (80-94); Mean Platelet Volume 13.1 fl (7.4-10.4); Monocytes # 0.8 K/mm3 (0.1-1.0); Neutrophils # 7.9 K/mm3 (1.8-7.8); Neutrophils % 71.9 % (37.0-80.0); Red Blood Count 4.86 M/mm3 (4.60-6.20); Red Cell Distribution Width 14.7 % (11.5-17.5)
[2023-11-26 08:36] LABS: Alanine Aminotransferase 34 U/L (12-78); Albumin/Globulin Ratio 1.1 (1.1-1.8); Alkaline Phosphatase 67 U/L (38-126); Anion Gap 7.5 mEq/L (5-15); Aspartate Amino Transferase 29 U/L (17-59); Bilirubin,Total 2.7 mg/dl (0.2-1.3); Blood Urea Nitrogen 14 mg/dl (9-20); Calcium 8.2 mg/dl (8.4-10.2); Carbon Dioxide 26 mmol/L (22.0-30.0); Chloride 106 mmol/L (98-107); Creatinine Clearance Estimated 119 mL/min (50-200); Estimated Glomerular Filt Rate 114 ml/min (>60); GFR (African American) 137 ML/MIN (>60); Globulin 2.8 g/dL (1.3-3.2); Glucose 104 mg/dl (74-100); Potassium 3.5 mmoL/L (3.5-5.1); Sodium 136 mmol/L (136-145); Total Protein,Serum 5.8 g/dl (6.3-8.2)
--- NOTE | 2023-11-26 08:40 | PC.NURSE ---
0840-pt d/c to 's office for abdominal pain, n/v, and unable to eat for a couple days. ed pinto spoke with and both agree to for go treatment today.
[2023-11-26 09:29] LABS: Platelet Count 22 K/mm3 (142-424)
== END 2023-11-26 08:40 | disposition home or self-care (01) ==
LOC: INF 07:55
PROVIDERS: PCP Family Medicine; Visit Provider Internal Medicine Medical Oncology
DX: D69.3 Immune thrombocytopenic purpura (principal)
CPT/HCPCS: 36415; 80053; 85025

== ENCOUNTER 2023-12-03 07:07 | Outpatient (CLI) | payer BC, SELFPAY ==
[2023-12-03] VITALS (18 sets, daily range): BP systolic 153–194; BP diastolic 74–97; PULSE 62–97; RESP 18; TEMP 36.1; O2SAT 98–99; BMI 31.1
[2023-12-03 08:29] LABS: Chloride 102 mmol/L (98-107); Potassium 3.5 mmoL/L (3.5-5.1); Sodium 136 mmol/L (136-145)
[2023-12-03 08:31] LABS: Alanine Aminotransferase 52 U/L (12-78); Blood Urea Nitrogen 15 mg/dl (9-20); Creatinine Clearance Estimated 116 mL/min (50-200); Estimated Glomerular Filt Rate 97 ml/min (>60); GFR (African American) 118 ML/MIN (>60)
[2023-12-03 08:32] LABS: Albumin Level 3.3 g/dl (3.5-5.0); Albumin/Globulin Ratio 1.1 (1.1-1.8); Alkaline Phosphatase 66 U/L (38-126); Anion Gap 9.5 mEq/L (5-15); Aspartate Amino Transferase 45 U/L (17-59); Bilirubin,Total 1.6 mg/dl (0.2-1.3); Calcium 9.1 mg/dl (8.4-10.2); Carbon Dioxide 28 mmol/L (22.0-30.0); Glucose 166 mg/dl (74-100); Total Protein,Serum 6.3 g/dl (6.3-8.2)
[2023-12-03 08:38] LABS: Basophils % 0.2 % (0.1-2.0); Hematocrit 44.8 % (42.0-52.0); Hemoglobin 14.9 g/dL (14.1-18.0); Lymphocytes # 1.1 K/mm3 (0.7-4.5); Lymphocytes % 9.6 % (10-50); Mean Corpuscular HGB Conc 33.3 g/dL (31.8-35.4); Mean Corpuscular Hemoglobin 30.7 pg (27.0-31.2); Monocytes # 0.4 K/mm3 (0.1-1.0); Monocytes % 3.2 % (1.7-9.3); Neutrophils # 9.9 K/mm3 (1.8-7.8); Platelet Count 79 K/mm3 (142-424); Red Blood Count 4.87 M/mm3 (4.60-6.20); Red Cell Distribution Width 14.6 % (11.5-17.5); White Blood Count 11.3 K/mm3 (4.8-10.8)
[2023-12-03 08:49] LABS: MANUAL DIFFERENTIAL MANUAL DIFFERENTIAL (MANUAL DIFF)
[2023-12-03] MEDS: ACETAMINOPHEN 325MG TAB 650 MG (08:50)
[2023-12-03] MEDS: diphenhydrAMINE 50MG CAPSULE 50 MG PO (08:50)
[2023-12-03] MEDS: RITUXIMAB IV (09:20)
[2023-12-03] MEDS: SODIUM CHLORIDE 0.9% IV (09:20)
[2023-12-03] MEDS: 0.9 % SODIUM CHLORIDE 50 ML 100 ML IV (09:20)
[2023-12-03 09:58] LABS: Lymphocytes % 5 % (10-50); Monocytes % 3 % (2-9); Neutrophils % 92 % (42-76); Platelet Estimate Moderate Decrease; RBC Morphology Normal; Total Cells Counted 100
== END 2023-12-03 13:40 | disposition home or self-care (01) ==
PROVIDERS: PCP Family Medicine; Visit Provider Internal Medicine Medical Oncology
DX: D69.3 Immune thrombocytopenic purpura (principal)
CPT/HCPCS: 80053; 85007; 85025; 96413; 96415; J9312

== ENCOUNTER 2023-12-09 11:09 | Outpatient (CLI) | payer BC, SELFPAY ==
--- NOTE | 2023-12-09 | CA_ITS ---
FINAL REPORT TECHNIQUE: Color Doppler, duplex Doppler and compression sonography of the right lower extremity venous system was performed. CLINICAL HISTORY: .Thrombocytopenia, Right calf/leg swellin/edema/pain x 10 days. Previous DVT COMPARISON: None FINDINGS: The common femoral vein and the majority of the superficial femoral vein are patent with compressibility and no visual thrombus identified. In the distal femoral vein, popliteal vein, and calf veins there is visual thrombus identified, with lack of compressibility and no significant flow consistent with deep venous thrombosis. The technologist informed Dr. Mas of hematology of the findings 12/09/2023. IMPRESSION: Deep venous thrombosis involving the veins of the calf, popliteal vein, and distal superficial femoral vein. Reviewed, Interpreted and Dictated by Robert Cruz III, MD Transcribed by Becky Mccarthy Authenticated and [facility]
[2023-12-09 11:42] VITALS: BMI 31.9
== END 2023-12-09 23:59 ==
LOC: RT 11:09
PROVIDERS: PCP Family Medicine; Visit Provider Internal Medicine Medical Oncology
DX: M79.604 Pain in right leg (principal); R22.41 Localized swelling, mass and lump, right lower limb
CPT/HCPCS: 93971

== ENCOUNTER 2023-12-09 11:50 | Emergency (ER) | payer BC, SELFPAY ==
[2023-12-09 11:51] VITALS: BP 153/89; PULSE 75; RESP 16; TEMP 36.7; O2SAT 97; BMI 32.1
--- NOTE | 2023-12-09 12:35 | ECG_ITS ---
APPROVED REPORT Exam: Resting ECG HR:65 bpm ECG Measurements Heart Rate 65 AXES MT 170 P 39 QRSd 113 QRS 25 QT 403 T 15 QTc 415 Conclusion SINUS RHYTHM PROBABLE INFERIOR MYOCARDIAL INFARCTION , PROBABLY OLD [35 ms Q WAVE IN II/aVF] ABNORMAL ECG UNCONFIRMED REPORT Electronically signed by : Jimbo Holbrook MD 12/09/2023 21:45:09
--- NOTE | 2023-12-09 12:39 | HMH.EDGENADL ---
Discharge Plan Disposition Patient Disposition: Home, Self-Care Prescriptions Prescriptions: New Xarelto 20 mg tablet 20 mg PO DAILY Qty: 30 2RF No Action cholecalciferol (vitamin D3) 125 mcg (5,000 unit) capsule 125 mcg PO DAILY losartan 100 mg tablet 100 mg PO DAILY Qty: 90 1RF bisoprolol fumarate 10 mg tablet 10 mg PO DAILY Qty: 30 2RF magnesium oxide 400 mg (241.3 mg magnesium) tablet 400 mg PO DAILY ferrous sulfate 325 mg (65 mg iron) tablet 325 mg PO BID pantoprazole 40 mg tablet,delayed release (DR/EC) 40 mg PO DAILY Patient Comments: TAKE 1 TABLET BY MOUTH EVERY DAY furosemide 40 mg tablet 40 mg PO BID Referrals Follow up/Referrals: Pasquale Girard MD [Primary Care Provider] - See instructions Activity Restrictions/Add. Instructions Additional Instructions/Restrictions: Call your family doctor to establish care for this visit to the emergency department and schedule follow-up within 48 hours to ensure improvement. If you have any worsening of your condition or any other concerning signs or symptoms, return to the emergency department or your primary care doctor for further evaluation. Also talk to your family doctor and/or workers compensation claims assistant about further refills of your xarelto. You will need to take it for at least 3 months. Clinical Impressions Clinical Impression: Acute deep vein thrombosis of right lower extremity Qualifiers: Affected thrombotic vein of extremity: femoral Qualified Code(s): I82.411 - Acute embolism and thrombosis of right femoral vein Discharge ED Provider: Serjio Otto General Adult HPI General Chief complaint: Extremity Problem,Nontraumatic Stated complaint: per dr fisher for poss pe Time Seen by Provider: 12/09/23 12:03 Mode of Arrival: Wheelchair Source of Information: Patient Limitations: No Limitations Description of Symptoms (Recalled from ER Triage Doc. by RN): Pt arrives via wheelchair from the infusion clinic where he is treated for ITP. Pt had a doppler on his RLE LITHOGRAPHIC ETCHER to the ED that was positive for a clot. Infusion wants him worked up for a PE. pt states he has had RLE swelling for about 10d. The edema is 4+ in the RLE with c/o SOA. History of Present Illness HPI narrative: 63-year-old male history of ITP currently following with hematology presenting with right lower extremity swelling. Patient states that he has had right lower extremity swelling for few days, has been getting worse. Supposed to see hematology clinic today, but because he seemed short of breath when walking to the clinic, they were concerned about PE and sent him to the emergency department. Patient has complaints of mild to moderate pain in his right leg that is throbbing, does not radiate. No shortness of breath, chest pain, nausea or vomiting, or any other concerns. On arrival, patient nontachycardic, normotensive, nontachypneic, saturating 100% on room air. Related Data Home Medications Medication Instructions Recorded Confirmed cholecalciferol (vitamin D3) 125 125 mcg PO DAILY Supplement 10/30/22 11/17/23 mcg (5,000 unit) capsule ferrous sulfate 325 mg (65 mg 325 mg PO BID Supplement 07/13/23 11/17/23 iron) tablet magnesium oxide 400 mg (241.3 mg 400 mg PO DAILY Supplement 07/13/23 11/17/23 magnesium) tablet furosemide 40 mg tablet 40 mg PO BID Fluid 08/01/23 11/17/23 pantoprazole 40 mg tablet,delayed 40 mg PO DAILY Acid Reflux 08/01/23 11/17/23 release Previous Rx's Medication Instructions Recorded losartan 100 mg tablet 100 mg PO DAILY High blood 05/04/23 pressure #90 tabs bisoprolol fumarate 10 mg tablet 10 mg PO DAILY #30 tabs 11/04/23 rivaroxaban 20 mg tablet (Xarelto) 20 mg PO DAILY #30 tabs 12/09/23 Allergies Allergy/AdvReac Type Severity Reaction Status Date / Time No Known Allergies Allergy Verified 11/17/23 09:07 [facility] Disclaimer: The information contained in this section may have been updated after the patient was seen, as this information can be updated by other users. Medical History Bigeminy Bradycardia CAD (coronary artery disease) Cardiomyopathy Diastolic dysfunction DM2 (diabetes mellitus, type 2) Frequent PVCs HTN (hypertension) Knee pain Mitral regurgitation PAF (paroxysmal atrial fibrillation) Pre-op testing SOB (shortness of breath) Superior mesenteric vein thrombosis Past history Thrombocytopenia Ventricular tachycardia Ventricular tachycardia seen on color television console monitor Surgical History History of shoulder surgery Family History Other Cancer Diabetes Hyperlipidemia Hypertension Social History Smoking Status: Never smoker alcohol intake: current substance use type: denies use current occupational status: employed Travel in the last 8 weeks: None household members: significant other ROS Obtained: Yes All systems reviewed & no additional complaints except as documented Physical Exam General General appearance: alert and in no apparent distress Head Head exam: atraumatic and normocephalic Eye Eye exam: Present normal appearance, PERRL and EOMI ENT ENT exam: Present mucous membranes moist Neck Neck exam: Present normal inspection, full ROM and trachea midline Respiratory Respiratory exam: Present normal lung sounds bilaterally; Absent respiratory distress, wheezes, stridor, accessory muscle use or prolonged expiratory phase Cardiovascular Cardiovascular exam: Present regular rate and normal rhythm Abdominal Exam Abdominal exam: Present soft; Absent distention, tenderness, guarding, rebound or rigidity Extremities Exam Extremities exam: Present edema (2+ right lower extremity edema as compared to the left. No evidence of alba or dolens.) Neurological Exam Neurological exam: Present alert, oriented X3, CN II-XII intact and normal gait; Absent motor sensory deficit Skin Skin exam: Present warm and dry; Absent diaphoresis or erythema Medical Decision Making Medical Records Medical records reviewed: Yes I reviewed the patient's medical records. [place] Inquiry Pt receiving controlled substance: No [place] was queried for this patient: No Vital Signs: 12/09/23 11:51 12/09/23 12:55 12/09/23 13:00 Temperature 98.1 F Temperature Source Oral Pulse Rate 70 66 Pulse Rate [Left] 75 Respiratory Rate 16 18 Blood Pressure 152/81 H 149/82 H Blood Pressure [Right Arm] 153/89 H Blood Pressure Mean 104 104 Blood Pressure Mean [Right Arm] 110 02 Sat by Pulse Oximetry 97 98 98 12/09/23 13:30 Temperature Temperature Source Pulse Rate 68 Pulse Rate [Left] Respiratory Rate 20 Blood Pressure 155/89 H Blood Pressure [Right Arm] Blood Pressure Mean 103 Blood Pressure Mean [Right Arm] 02 Sat by Pulse Oximetry 96 Lab Data Lab Results 12/09/23 12:18: WBC 14.1 H, RBC 5.00, Hgb 15.1, Hct 46.0, MCV 92.0, MCH 30.3, MCHC 32.9, RDW 14.8, Plt Count 84 L, MPV 9.0, Neut % (Auto) 90.1 H, Lymph % (Auto) 4.4 L, [place] % (Auto) 4.6, Eos % (Auto) 0.6, Baso % (Auto) 0.2, Neut # (Auto) 12.7 H, Lymph # (Auto) 0.6 L, [place] # (Auto) 0.7, Eos # (Auto) 0.1, Baso # (Auto) 0.0, Total Counted 100, Neutrophils % (Manual) 86 H, Lymphocytes % (Manual) 5 L, Monocytes % (Manual) 8, Eosinophils % (Manual) 1, Platelet Estimate Moderate decrease, RBC Morphology Normal, PT 14.0 H, INR 1.32 H, APTT 25.3, Fibrinogen 182 L, Sodium 138, Potassium 3.3 L, Chloride 103, Carbon Dioxide 31 H, Anion Gap 7.3, BUN 12, Creatinine 0.80, Estimated Creat Clear 117, Estimated GFR 97, Est GFR ( Amer) 118, Glucose 115 H, Calcium 9.1, Total Bilirubin 3.1 H, AST 40, ALT 47, Alkaline Phosphatase 80, Troponin I 0.03, NT-Pro-B Natriuret Pep 801 H, Total Protein 6.2 L, Albumin 3.3 L, Globulin 2.9, Albumin/Globulin Ratio 1.1 12/09/23 12:18 12/09/23 12:18 Orders (Tests/Meds): ORDERS Category Date Time Status POCUS Point of Care (ER Only) Stat Exams 12/09/23 12:31 Completed POCUS Point of Care (ER Only) Stat Exams 12/09/23 12:32 Completed BNP [Brain Natriuretic Peptide] Stat Lab 12/09/23 12:18 Completed CBC w/Auto Diff [Complete Blood Count Auto Diff] Stat Lab 12/09/23 12:18 Completed CMP [Comprehensive Metabolic Panel] Stat Lab 12/09/23 12:18 Completed Fibrinogen Stat Lab 12/09/23 12:18 Completed PT INR [Prothrombin Time INR] Stat Lab 12/09/23 12:18 Completed PTT [Activated Partial Thrombo Time] Stat Lab 12/09/23 12:18 Completed Trop I [Troponin I] Stat Lab 12/09/23 12:18 Completed ECG initial [place] Routine Y 12/09/23 12:35 Completed Medical Decision Narrative: 63-year-old male history of ITP currently following with hematology presenting with right lower extremity swelling. Patient states that he has had right lower extremity swelling for few days, has been getting worse. Supposed to see hematology clinic today, but because he seemed short of breath when walking to the clinic, they were concerned about PE and sent him to the emergency department. Patient has complaints of mild to moderate pain in his right leg that is throbbing, does not radiate. No shortness of breath, chest pain, nausea or vomiting, or any other concerns. On arrival, patient nontachycardic, normotensive, nontachypneic, saturating 100% on room air. History was obtained via conversation with patient. On arrival, patient hemodynamically stable, alert, oriented x4, appropriate, GCS 15, moving all extremities spontaneously, pupils equal and reactive to light. Full physical exam performed and significant for right lower extremity swelling to the level of the mid thigh. Tender. 2+ pitting edema. Pulses intact. Lungs clear to auscultation, nontachycardic, saturating appropriately on room air, normotensive. Differential includes DVT, PE, among others. Workup independently interpreted and significant for nonactionable CBC or chemistry. Patient's platelets are 84,000. PTT elevated at 300, INR mildly elevated 1.3 and fibrinogen low at 1.82. Patient currently following with hematology for these. Troponin negative, BNP mildly elevated 800. See radiology read for full review of final results. Independent interpretation of EKG shows 65 beats a minute sinus rhythm without ST or T wave changes concerning for acute ischemia. Patient does have S1, Q3, T3 pattern. [place] normal, NE, QRS, QT intervals within normal limits. [id number] right lower quadrant ultrasound with DVT extending from femoral vein down to posterior calf veins. [id number] cardiac ultrasound without evidence of right heart strain. on reevaluation, patient resting comfortably. Given patient presentation, workup, history, this most likely represents DVT right lower extremity. Because patient at baseline without signs or symptoms of clinical decompensation, deemed appropriate for discharge. Results were relayed to patient who voiced understanding and were agreeable to outpatient management and follow up. At the time of discharge the patient was hemodynamically stable, tolerating PO, and mobilizing appropriately. Procedures Limited Ultrasound Indication:: Limited DVT ultrasound Indication: Limited compression ultrasonography of the right lower extremity was performed to evaluate for non-compressibility of the deep veins in the patient. The ultrasound was performed with the following indications, as noted in the H&P: Right lower pain and swelling Identified structures: Right lower extremity common femoral, femoral, popliteal Findings: Lower extremity: Right CFV: Noncompressible Right FV: Noncompressible Right Popliteal vein: Noncompressible Impression: [Normal or Right DVT or Left DVT or Bilateral DVT or Inconclusive] Images [were saved] to permanent archive The study [was] technically adequate CPT: 17641-77-[place] 17134-37-KV 69875-36 (complete bilateral study) This study was performed by tx, and I personally interpreted all images/videos. Based on my clinical judgement, these images were adequate and did not necessitate further imaging. Views:: Limited cardiac ultrasound Indication: DVT, EKG changes Identified cardiac views: -Cardiac parasternal long axis -Cardiac parasternal short axis -Cardiac apical four-chamber Findings: -Cardiac activity present -Gross wall motion normal -Pericardial effusion absent -Right heart strain absent Impression: -Normal cardiac ultrasound Images were saved to permanent archive The study was technically adequate CPT: 51104 This study was performed by tx, and I personally interpreted all images/videos. Based on my clinical judgement, these images were adequate and did not necessitate further imaging. Critical Care Critical Care Time Critical Care Time: No
[2023-12-09 12:49] LABS: Alanine Aminotransferase 47 U/L (12-78); Albumin Level 3.3 g/dl (3.5-5.0); Albumin/Globulin Ratio 1.1 (1.1-1.8); Alkaline Phosphatase 80 U/L (38-126); Anion Gap 7.3 mEq/L (5-15); Aspartate Amino Transferase 40 U/L (17-59); Basophils % 0.2 % (0.1-2.0); Bilirubin,Total 3.1 mg/dl (0.2-1.3); Blood Urea Nitrogen 12 mg/dl (9-20); Calcium 9.1 mg/dl (8.4-10.2); Carbon Dioxide 31 mmol/L (22.0-30.0); Chloride 103 mmol/L (98-107); Creatinine Clearance Estimated 117 mL/min (50-200); Eosinophils # 0.1 K/mm3 (0.0-0.4); Eosinophils % 0.6 % (0.1-12.0); Estimated Glomerular Filt Rate 97 ml/min (>60); GFR (African American) 118 ML/MIN (>60); Globulin 2.9 g/dL (1.3-3.2); Glucose 115 mg/dl (74-100); Hemoglobin 15.1 g/dL (14.1-18.0); Lymphocytes # 0.6 K/mm3 (0.7-4.5); Lymphocytes % 4.4 % (10-50); Mean Corpuscular HGB Conc 32.9 g/dL (31.8-35.4); Mean Corpuscular Hemoglobin 30.3 pg (27.0-31.2); Monocytes # 0.7 K/mm3 (0.1-1.0); Monocytes % 4.6 % (1.7-9.3); Neutrophils # 12.7 K/mm3 (1.8-7.8); Neutrophils % 90.1 % (37.0-80.0); Platelet Count 84 K/mm3 (142-424); Potassium 3.3 mmoL/L (3.5-5.1); Red Cell Distribution Width 14.8 % (11.5-17.5); Sodium 138 mmol/L (136-145); Total Protein,Serum 6.2 g/dl (6.3-8.2); White Blood Count 14.1 K/mm3 (4.8-10.8)
[2023-12-09 12:55] VITALS: BP 152/81; PULSE 70; O2SAT 98
[2023-12-09 12:55] LABS: MANUAL DIFFERENTIAL MANUAL DIFFERENTIAL (MANUAL DIFF)
[2023-12-09 13:00] VITALS: BP 149/82; PULSE 66; RESP 18; O2SAT 98
[2023-12-09 13:08] LABS: Troponin I 0.03 ng/ml (0.00-0.034)
[2023-12-09 13:30] VITALS: BP 155/89; PULSE 68; RESP 20; O2SAT 96
[2023-12-09 13:34] LABS: Activated Partial Thrombo Time 25.3 seconds (22.8-30.6); Fibrinogen 182 mg/dL (229.9-363.5); INR 1.32 (0.9-1.1)
[2023-12-09 14:15] LABS: Eosinophils % 1 % (0-3); Lymphocytes % 5 % (10-50); Monocytes % 8 % (2-9); Neutrophils % 86 % (42-76); Total Cells Counted 100
--- NOTE | 2023-12-09 14:16 | PC.NURSE ---
call made to lab to check status of BNP results
[2023-12-09 14:17] LABS: Platelet Estimate Moderate Decrease; RBC Morphology Normal
[2023-12-09 14:36] LABS: NT Pro Brain Natriuretic Pep. 801 pg/mL (0-125)
[2023-12-09 14:58] VITALS: BP 171/105; PULSE 85; RESP 16; TEMP 36.7; O2SAT 98
== END 2023-12-09 14:59 | disposition home or self-care (01) ==
PROVIDERS: Emergency Provider Emergency Medicine; PCP Family Medicine
DX: I82.411 Acute embolism and thrombosis of right femoral vein (principal); R22.41 Localized swelling, mass and lump, right lower limb; I25.10 Atherosclerotic heart disease of native coronary artery without angina pectoris; I11.9 Hypertensive heart disease without heart failure; I42.9 Cardiomyopathy, unspecified; E11.9 Type 2 diabetes mellitus without complications; I48.0 Paroxysmal atrial fibrillation; I35.0 Nonrheumatic aortic (valve) stenosis; D69.6 Thrombocytopenia, unspecified
CPT/HCPCS: 80053; 83880; 84484; 85007; 85025; 85384; 85610; 85730; 93005; 99285

== ENCOUNTER 2023-12-17 09:36 | Outpatient (CLI) | payer BC, SELFPAY ==
[2023-12-17] VITALS (8 sets, daily range): BP systolic 152–179; BP diastolic 74–98; PULSE 63–78; RESP 18–19; TEMP 36.6; O2SAT 96; BMI 31.8
[2023-12-17 09:53] LABS: Chloride 108 mmol/L (98-107)
[2023-12-17 09:54] LABS: Potassium 3.3 mmoL/L (3.5-5.1); Sodium 139 mmol/L (136-145)
[2023-12-17 09:56] LABS: Alanine Aminotransferase 28 U/L (12-78); Alkaline Phosphatase 81 U/L (38-126); Aspartate Amino Transferase 38 U/L (17-59); Basophils % 0.4 % (0.1-2.0); Bilirubin,Total 3.1 mg/dl (0.2-1.3); Blood Urea Nitrogen 13 mg/dl (9-20); Creatinine Clearance Estimated 108 mL/min (50-200); Eosinophils # 0.6 K/mm3 (0.0-0.4); Eosinophils % 6.3 % (0.1-12.0); Estimated Glomerular Filt Rate 67 ml/min (>60); GFR (African American) 82 ML/MIN (>60); Hematocrit 42.2 % (42.0-52.0); Hemoglobin 14.1 g/dL (14.1-18.0); Lymphocytes # 1.4 K/mm3 (0.7-4.5); Lymphocytes % 15.1 % (10-50); Mean Corpuscular HGB Conc 33.4 g/dL (31.8-35.4); Mean Corpuscular Hemoglobin 30.7 pg (27.0-31.2); Mean Platelet Volume 12.3 fl (7.4-10.4); Monocytes # 0.6 K/mm3 (0.1-1.0); Monocytes % 6.1 % (1.7-9.3); Neutrophils # 6.5 K/mm3 (1.8-7.8); Red Blood Count 4.59 M/mm3 (4.60-6.20); Red Cell Distribution Width 15.7 % (11.5-17.5)
[2023-12-17 09:57] LABS: Albumin/Globulin Ratio 0.9 (1.1-1.8); Anion Gap 3.3 mEq/L (5-15); Calcium 9.1 mg/dl (8.4-10.2); Carbon Dioxide 31 mmol/L (22.0-30.0); Globulin 3.3 g/dL (1.3-3.2); Glucose 114 mg/dl (74-100); Total Protein,Serum 6.3 g/dl (6.3-8.2)
[2023-12-17 09:58] LABS: Platelet Count 23 K/mm3 (142-424)
[2023-12-17] MEDS: ACETAMINOPHEN 325MG TAB 650 MG (10:32)
[2023-12-17] MEDS: diphenhydrAMINE 25MG CAPSULE 25 MG PO (10:32)
[2023-12-17] MEDS: DEXAMETHASONE 4MG/ML 5ML MDV 20 MG (10:32)
[2023-12-17] MEDS: RITUXIMAB IV (11:06)
[2023-12-17] MEDS: SODIUM CHLORIDE 0.9% IV (11:06)
[2023-12-17] MEDS: 0.9 % SODIUM CHLORIDE 50 ML 100 ML IV (11:10)
== END 2023-12-17 14:30 | disposition home or self-care (01) ==
LOC: INF 09:36
PROVIDERS: PCP Family Medicine; Visit Provider Internal Medicine Medical Oncology
DX: D69.3 Immune thrombocytopenic purpura (principal); Z79.899 Other long term (current) drug therapy
CPT/HCPCS: 80053; 85025; 96413; 96415; J9312

== ENCOUNTER 2023-12-18 09:44 | Outpatient (CLI) | payer BC, SELFPAY ==
[2023-12-18 09:45] VITALS: BMI 31.8
--- NOTE | 2023-12-18 09:50 | PC.NURSE ---
0950-ed moeller collected labs via venipuncture stick with butterfly needle in left forearm; pt to d/c home rn will call with results.
[2023-12-18 10:02] LABS: Basophils % 0.1 % (0.1-2.0); Eosinophils % 0.1 % (0.1-12.0); Hematocrit 40.3 % (42.0-52.0); Hemoglobin 13.5 g/dL (14.1-18.0); Lymphocytes # 0.8 K/mm3 (0.7-4.5); Lymphocytes % 6.5 % (10-50); Mean Corpuscular HGB Conc 33.6 g/dL (31.8-35.4); Mean Corpuscular Hemoglobin 30.7 pg (27.0-31.2); Mean Corpuscular Volume 91.3 fl (80-94); Monocytes # 0.3 K/mm3 (0.1-1.0); Monocytes % 2.1 % (1.7-9.3); Neutrophils # 11.8 K/mm3 (1.8-7.8); Neutrophils % 91.2 % (37.0-80.0); Red Blood Count 4.42 M/mm3 (4.60-6.20); Red Cell Distribution Width 15.4 % (11.5-17.5); White Blood Count 12.9 K/mm3 (4.8-10.8)
[2023-12-18 10:07] LABS: Platelet Count 40 K/mm3 (142-424)
[2023-12-18 10:09] LABS: MANUAL DIFFERENTIAL MANUAL DIFFERENTIAL (MANUAL DIFF)
[2023-12-18 11:00] LABS: Lymphocytes % 10 % (10-50); Monocytes % 2 % (2-9); Neutrophils % 88 % (42-76); Platelet Estimate Moderate Decrease; RBC Morphology Normal; Total Cells Counted 100
== END 2023-12-18 09:55 | disposition home or self-care (01) ==
LOC: INF 09:44
PROVIDERS: PCP Family Medicine; Visit Provider Internal Medicine Medical Oncology
DX: D69.3 Immune thrombocytopenic purpura (principal)
CPT/HCPCS: 36415; 85007; 85025

== ENCOUNTER 2023-12-22 08:16 | Outpatient (CLI) | payer BC, SELFPAY ==
[2023-12-22] VITALS (9 sets, daily range): BP systolic 157–183; BP diastolic 81–96; PULSE 56–64; RESP 18; TEMP 36.7; O2SAT 97–99; BMI 31.8
--- NOTE | 2023-12-22 08:20 | PC.NURSE ---
0820-collected labs via venipuncture stick in right ac per pt request;will wait on labs.
[2023-12-22 08:33] LABS: Basophils % 0.1 % (0.1-2.0); Eosinophils # 0.2 K/mm3 (0.0-0.4); Eosinophils % 1.8 % (0.1-12.0); Hematocrit 42.4 % (42.0-52.0); Lymphocytes % 8.8 % (10-50); Mean Corpuscular Hemoglobin 30.6 pg (27.0-31.2); Mean Corpuscular Volume 92.7 fl (80-94); Mean Platelet Volume 9.4 fl (7.4-10.4); Monocytes # 0.7 K/mm3 (0.1-1.0); Monocytes % 6.3 % (1.7-9.3); Neutrophils # 9.3 K/mm3 (1.8-7.8); Platelet Count 131 K/mm3 (142-424); Red Blood Count 4.58 M/mm3 (4.60-6.20); Red Cell Distribution Width 15.8 % (11.5-17.5); White Blood Count 11.2 K/mm3 (4.8-10.8)
[2023-12-22 08:40] LABS: Chloride 111 mmol/L (98-107); Potassium 3.1 mmoL/L (3.5-5.1); Sodium 139 mmol/L (136-145)
[2023-12-22 08:42] LABS: Alanine Aminotransferase 46 U/L (12-78); Aspartate Amino Transferase 44 U/L (17-59); Blood Urea Nitrogen 12 mg/dl (9-20); Creatinine Clearance Estimated 119 mL/min (50-200); Estimated Glomerular Filt Rate 85 ml/min (>60); GFR (African American) 103 ML/MIN (>60)
[2023-12-22 08:43] LABS: Albumin Level 2.9 g/dl (3.5-5.0); Albumin/Globulin Ratio 0.9 (1.1-1.8); Alkaline Phosphatase 82 U/L (38-126); Anion Gap 3.1 mEq/L (5-15); Bilirubin,Total 1.8 mg/dl (0.2-1.3); Calcium 8.6 mg/dl (8.4-10.2); Carbon Dioxide 28 mmol/L (22.0-30.0); Globulin 3.1 g/dL (1.3-3.2); Glucose 105 mg/dl (74-100)
[2023-12-22] MEDS: diphenhydrAMINE 50MG CAPSULE 50 MG PO (09:20)
[2023-12-22] MEDS: ACETAMINOPHEN 325MG TAB 650 MG (09:20)
[2023-12-22] MEDS: SODIUM CHLORIDE 0.9% IV (09:56)
[2023-12-22] MEDS: RITUXIMAB IV (09:56)
[2023-12-22] MEDS: SODIUM CHLORIDE 0.9% 50ML BAG 50 ML IV (09:56)
== END 2023-12-22 13:25 | disposition home or self-care (01) ==
PROVIDERS: PCP Registered Nurse; Visit Provider Internal Medicine Medical Oncology
DX: D69.3 Immune thrombocytopenic purpura (principal)
CPT/HCPCS: 80053; 85025; 96413; 96415; J9312

== ENCOUNTER 2023-12-30 08:19 | Outpatient (CLI) | payer BC, SELFPAY ==
[2023-12-30] VITALS (8 sets, daily range): BP systolic 145–175; BP diastolic 67–90; PULSE 59–69; RESP 18; TEMP 36.7; O2SAT 98–100; BMI 31.8
[2023-12-30 08:46] LABS: Basophils % 0.2 % (0.1-2.0); Eosinophils # 0.2 K/mm3 (0.0-0.4); Eosinophils % 1.2 % (0.1-12.0); Hematocrit 46.1 % (42.0-52.0); Hemoglobin 14.6 g/dL (14.1-18.0); Lymphocytes % 13.8 % (10-50); Mean Corpuscular HGB Conc 31.7 g/dL (31.8-35.4); Mean Corpuscular Hemoglobin 30.5 pg (27.0-31.2); Mean Corpuscular Volume 96.4 fl (80-94); Mean Platelet Volume 9.9 fl (7.4-10.4); Monocytes # 1.2 K/mm3 (0.1-1.0); Monocytes % 8.4 % (1.7-9.3); Neutrophils # 11.1 K/mm3 (1.8-7.8); Neutrophils % 76.5 % (37.0-80.0); Platelet Count 55 K/mm3 (142-424); Red Blood Count 4.79 M/mm3 (4.60-6.20); Red Cell Distribution Width 16.4 % (11.5-17.5); White Blood Count 14.6 K/mm3 (4.8-10.8)
[2023-12-30] MEDS: 0.9 % SODIUM CHLORIDE 50 ML IV (09:50)
[2023-12-30] MEDS: ACETAMINOPHEN 325MG TAB 650 MG (09:50)
[2023-12-30] MEDS: diphenhydrAMINE 25MG CAPSULE 25 MG PO (09:50)
[2023-12-30] MEDS: RITUXIMAB IV (10:16)
[2023-12-30] MEDS: SODIUM CHLORIDE 0.9% IV (10:16)
[2023-12-30 10:57] LABS: Alanine Aminotransferase 49 U/L (12-78); Alkaline Phosphatase 82 U/L (38-126); Anion Gap 7.5 mEq/L (5-15); Aspartate Amino Transferase 42 U/L (17-59); Bilirubin,Total 2.3 mg/dl (0.2-1.3); Blood Urea Nitrogen 14 mg/dl (9-20); Calcium 9.2 mg/dl (8.4-10.2); Carbon Dioxide 28 mmol/L (22.0-30.0); Chloride 109 mmol/L (98-107); Creatinine Clearance Estimated 119 mL/min (50-200); Estimated Glomerular Filt Rate 85 ml/min (>60); GFR (African American) 103 ML/MIN (>60); Glucose 85 mg/dl (74-100); Potassium 3.5 mmoL/L (3.5-5.1); Sodium 141 mmol/L (136-145)
[2023-12-30 16:37] LABS: Bilirubin,Indirect 2.3 mg/dL (0.0-0.9)
== END 2023-12-30 13:25 | disposition home or self-care (01) ==
LOC: INF 08:19
PROVIDERS: PCP Family Medicine; Visit Provider Internal Medicine Medical Oncology
DX: D69.3 Immune thrombocytopenic purpura (principal)
CPT/HCPCS: 80053; 82248; 85025; 96413; 96415; J9312

== ENCOUNTER 2023-12-30 13:55 | Outpatient (CLI) | payer BC, SELFPAY ==
--- NOTE | 2023-12-30 14:01 | CT_ITS ---
FINAL REPORT TECHNIQUE: Thin section axial images were obtained from the thoracic inlet through the upper abdomen after intravenous contrast injection. Reconstruction images were obtained from the axial data. Exam was performed using dose reduction technique. CLINICAL HISTORY: SHORTNESS OF AIR COMPARISON: None FINDINGS: There is no mediastinal, hilar, or axillary lymphadenopathy. There is a moderate left pleural effusion. No right pleural effusion. There is no pericardial effusion. The heart is normal in size. There is left lower lobe atelectasis. Lungs are otherwise clear. No suspicious nodules. No acute osseous abnormality. IMPRESSION: Moderate left pleural effusion with associated atelectasis. Reviewed, Interpreted and Dictated by Mary Lou Mar MD Transcribed by Chiara Polanco Authenticated and [facility]
--- NOTE | 2023-12-30 14:01 | CT_ITS ---
FINAL REPORT TECHNIQUE: Thin section axial images are obtained through the abdomen and pelvis after intravenous contrast. Reconstruction images were obtained from the axial data. Exam was performed using dose reduction techniques. CLINICAL HISTORY: CIRRHOSIS COMPARISON: 08/01/2022 FINDINGS: LIVER: Small and nodular consistent with cirrhosis. No focal lesion. GALLBLADDER/BILIARY SYSTEM: Gallbladder is present. No gallstones. No biliary dilatation. SPLEEN: Enlarged measuring 13.6 cm. PANCREAS: Unremarkable. ADRENALS: Unremarkable. SYSTEM: No hydronephrosis, renal mass, or renal stone. Unremarkable urinary bladder. Pelvic organs are unremarkable for age. GI TRACT: No small bowel obstruction. There is wall thickening of several small bowel loops which is nonspecific in the setting of ascites. Normal appendix. No acute colon abnormality. LYMPH NODES/RETROPERITONEUM/MESENTERY: No lymphadenopathy. No abdominal aortic aneurysm. OTHER: Small to moderate ascites, increased from prior. Remaining soft tissues without acute abnormality. BONES: No acute osseous abnormality. IMPRESSION: Cirrhosis with splenomegaly and worsening ascites. Resolved small bowel obstruction. Reviewed, Interpreted and Dictated by Mary Lou Mar MD Transcribed by Chiara Polanco Authenticated and [facility]
[2023-12-30] MEDS: 0.9 % SODIUM CHLORIDE 50 ML VIAL IV (14:52)
[2023-12-30] MEDS: SODIUM CHLORIDE 0.9% 10ML SYR (RAD ONLY) 10 ML IV (14:52)
[2023-12-30] MEDS: IOPAMIDOL-370 (76%);100ML BOTTLE 140 ML IV (14:52)
== END 2023-12-30 23:59 ==
LOC: RAD 13:56
PROVIDERS: PCP Family Medicine; Visit Provider Internal Medicine Medical Oncology
DX: R06.09 Other forms of dyspnea (principal); K74.60 Unspecified cirrhosis of liver
CPT/HCPCS: 71275; 74177; Q9967

== ENCOUNTER 2024-01-01 08:13 | Outpatient (CLI) | payer BC, SELFPAY ==
[2024-01-01 08:15] VITALS: BMI 31.2
[2024-01-01 08:26] LABS: Basophils # 0.1 K/mm3 (0-0.2); Basophils % 0.6 % (0.1-2.0); Eosinophils # 0.1 K/mm3 (0.0-0.4); Eosinophils % 0.7 % (0.1-12.0); Hematocrit 45.4 % (42.0-52.0); Hemoglobin 14.5 g/dL (14.1-18.0); Lymphocytes # 1.9 K/mm3 (0.7-4.5); Lymphocytes % 14.2 % (10-50); Mean Corpuscular Hemoglobin 31.4 pg (27.0-31.2); Mean Platelet Volume 10.6 fl (7.4-10.4); Monocytes # 0.6 K/mm3 (0.1-1.0); Monocytes % 4.8 % (1.7-9.3); Neutrophils # 10.4 K/mm3 (1.8-7.8); Neutrophils % 79.6 % (37.0-80.0); Red Blood Count 4.64 M/mm3 (4.60-6.20); Red Cell Distribution Width 16.5 % (11.5-17.5)
[2024-01-01 08:33] LABS: Platelet Count 50 K/mm3 (142-424)
== END 2024-01-01 08:20 | disposition home or self-care (01) ==
LOC: INF 08:13
PROVIDERS: Visit Provider Internal Medicine Medical Oncology
DX: D69.3 Immune thrombocytopenic purpura (principal)
CPT/HCPCS: 36415; 85025

== ENCOUNTER 2024-01-07 08:16 | Outpatient (CLI) | payer BC, SELFPAY ==
[2024-01-07 08:19] VITALS: BMI 31.1
--- NOTE | 2024-01-07 08:24 | PC.NURSE ---
01/07/24 0824 Pt presents for blood to be drawn for lab check. Pt accessed using butterlfy access needle to pt's lt ac x 1 stick per Mo Marshall RN. Blood drawn for labs as ordered, needle withdrawn and site secured with 2x2 gauze and coban.
[2024-01-07 08:32] LABS: Basophils # 0.1 K/mm3 (0-0.2); Basophils % 0.4 % (0.1-2.0); Eosinophils # 0.4 K/mm3 (0.0-0.4); Eosinophils % 3.1 % (0.1-12.0); Hematocrit 46.7 % (42.0-52.0); Hemoglobin 14.9 g/dL (14.1-18.0); Lymphocytes # 1.7 K/mm3 (0.7-4.5); Lymphocytes % 12.1 % (10-50); Mean Corpuscular HGB Conc 31.9 g/dL (31.8-35.4); Mean Corpuscular Hemoglobin 31.2 pg (27.0-31.2); Mean Corpuscular Volume 97.7 fl (80-94); Mean Platelet Volume 11.3 fl (7.4-10.4); Monocytes % 7.3 % (1.7-9.3); Neutrophils # 10.6 K/mm3 (1.8-7.8); Red Blood Count 4.78 M/mm3 (4.60-6.20); Red Cell Distribution Width 16.8 % (11.5-17.5); White Blood Count 13.8 K/mm3 (4.8-10.8)
[2024-01-07 08:33] LABS: Platelet Count 48 K/mm3 (142-424)
--- NOTE | 2024-01-07 11:26 | CA_ITS ---
APPROVED REPORT EXAM: Comprehensive 2D, Doppler, and color-flow Echocardiogram Beam Sealer: Heather Hawkins, NEEL, RVS Ht: 6 ft 2 in Wt: 243lbs BSA: 2.36 BP: 144/81 mmHg Indications: SOB, Preop knee, MR, AFIB, Hx-CM, HTN, DM, SOB, Thrombocytopenia 2D Dimensions IVSd 1.31 cm LVEF (Visual) 45.80 % PWd 1.16 cm LVEF (Moe's) 49.00 % LVDd 5.68 cm LV Volume 151.10 mL LVDs 4.17 cm LA Volume 72.90 mL Aortic Root 3.51 cm LA Volume Index 30.90 mL/m2 (M/F) 16-34 Left Atrium 4.41 cm EF AP4 52.60 % RVID Base (AP4) 3.75 cm (M/F) 2.5-4.1 EF AP2 45.1 % LVOT 2.04 cm (M/F) 1.5-2.5 EF BP 49.0 % GL Strain -16.8 % M-Mode Dimensions LVDd 5.68 cm (3.5-5.7) Ao Diam 3.47 cm (2.0-3.7) LVDs 4.17 cm (3.5-5.7) IVSd 1.31 cm (0.6-1.1) PWd 1.16 cm (0.6-1.1) EPSs 1.03 cm FS 23.10% TAPSE 2.02 (<1.7) LV Diastology E Decel Time 169 (160-240 msec) E/A Ratio 0.70 MED E' 3.0 (>= 7 cm/sec) MED A' 9.30 cm/s E'/MED E' Ratio 22.17 (<= 14) LAT E' 8.1 (>= 10 cm/sec) LAT A' 12.70 cm/s E/LAT E' Ratio 8.21 (<= 14) Pulm Vein s 36.00 cm/sec Ar-A Duration 108.00 msec Aortic Valve LVOT Max 90.0 (70-110 cm/s) ARLETTE Index 0.55 cm2/m2 LVOT VTI 17.88 cm AoV Peak Darrion. 214.0 (50-130 cm/s) AO Mean GR. 9.00 (<5 mmHg) AO VTI 45.3 (18-25 cm) ARLETTE (VTI) 1.29 (2.5-4.5 cm2) Mitral Valve MV E Max Darrion. 66.0 (40-130 cm/s) MV A Velocity 95.0 (40-130 cm/s) E/A Ratio 0.70 MV Decel. Time 169 (160-240 ms) Pulmonary Valve IL End VMAX 149.0 cm/s Left Ventricle The left ventricle is normal size. The left ventricular systolic function is normal. The left ventricular ejection fraction is within the normal range. There is increased LV wall thickness. There is normal LV segmental wall motion. Transmitral Doppler flow pattern suggests impaired LV relaxation. LVEF is 55%. Right Ventricle The right ventricle is normal size. The right ventricular systolic function is normal. Atria Left atrium is mildly dilated. The right atrium size is normal. There is no Doppler evidence of interatrial shunt. Aortic Valve The aortic valve is mildly thickened. Aortic sclerosis, but no evidence of aortic stenosis. Trace aortic regurgitation. Mitral Valve The mitral valve leaflets are mildly thickened. No evidence of mitral valve stenosis. Mild mitral regurgitation. Tricuspid Valve The tricuspid valve leaflets are thin and pliable. Trace tricuspid regurgitation. There is insufficient TR jet to estimate RVSP. Pulmonic Valve The pulmonary valve is normal in structure. Mild pulmonic regurgitation. Great Vessels The aortic root is normal in size. The ascending aorta is normal in size. IVC is normal in size and collapses >50% with inspiration. Pericardium There is no pericardial effusion. Other Information Study Quality: Fair Conclusion Normal biventricular systolic function. Mild LA dilation. Mild MR, mild PI. Aortic sclerosis, but no evidence of aortic stenosis. Electronically signed by : Le Serna MD 01/10/2024 20:44:31
== END 2024-01-07 23:59 ==
LOC: INF 08:17
PROVIDERS: PCP Family Medicine; Visit Provider Internal Medicine Medical Oncology
DX: R06.09 Other forms of dyspnea (principal); I25.10 Atherosclerotic heart disease of native coronary artery without angina pectoris; I34.0 Nonrheumatic mitral (valve) insufficiency; J90 Pleural effusion, not elsewhere classified; I48.0 Paroxysmal atrial fibrillation
CPT/HCPCS: 36415; 85025; 93306

== ENCOUNTER 2024-01-12 07:59 | Outpatient (CLI) | payer BC, SELFPAY ==
--- NOTE | 2024-01-12 08:10 | PC.NURSE ---
0810-collected labs via venipuncture stick with butterfly needle in right ac; pt to d/c home will call with results
[2024-01-12 08:12] VITALS: BMI 31.1
[2024-01-12 08:27] LABS: Basophils % 0.2 % (0.1-2.0); Eosinophils % 0.2 % (0.1-12.0); Hematocrit 49.3 % (42.0-52.0); Hemoglobin 16.2 g/dL (14.1-18.0); Lymphocytes # 0.4 K/mm3 (0.7-4.5); Lymphocytes % 2.5 % (10-50); Mean Corpuscular HGB Conc 32.9 g/dL (31.8-35.4); Mean Corpuscular Hemoglobin 32.3 pg (27.0-31.2); Mean Platelet Volume 10.1 fl (7.4-10.4); Monocytes # 0.6 K/mm3 (0.1-1.0); Monocytes % 4.5 % (1.7-9.3); Neutrophils # 12.8 K/mm3 (1.8-7.8); Neutrophils % 92.5 % (37.0-80.0); Platelet Count 91 K/mm3 (142-424); Red Blood Count 5.03 M/mm3 (4.60-6.20); Red Cell Distribution Width 16.3 % (11.5-17.5); White Blood Count 13.9 K/mm3 (4.8-10.8)
[2024-01-12 08:30] LABS: MANUAL DIFFERENTIAL MANUAL DIFFERENTIAL (MANUAL DIFF)
[2024-01-12 09:42] LABS: Lymphocytes % 4 % (10-50); Monocytes % 7 % (2-9); Neutrophils % 89 % (42-76); Platelet Estimate Moderate Decrease; RBC Morphology Normal; Total Cells Counted 100
== END 2024-01-12 08:15 | disposition home or self-care (01) ==
LOC: INF 08:00
PROVIDERS: Internal Medicine Medical Oncology; PCP Family Medicine; Visit Provider Internal Medicine
DX: D69.6 Thrombocytopenia, unspecified (principal)
CPT/HCPCS: 36415; 85007; 85025

== ENCOUNTER 2024-01-13 09:09 | Outpatient (CLI) | payer BC, SELFPAY ==
[2024-01-13 09:10] VITALS: BMI 31.1
--- NOTE | 2024-01-13 09:14 | PC.NURSE ---
0913-LABS DRAWN FROM RIGHT AC USING BUTTERFLY NEEDLE TO CHECK LABS PER DR BLANK.
[2024-01-13 09:28] LABS: Alanine Aminotransferase 56 U/L (12-78); Albumin Level 3.1 g/dl (3.5-5.0); Albumin/Globulin Ratio 1.1 (1.1-1.8); Alkaline Phosphatase 67 U/L (38-126); Anion Gap 7.9 mEq/L (5-15); Aspartate Amino Transferase 41 U/L (17-59); Bilirubin,Total 2.6 mg/dl (0.2-1.3); Blood Urea Nitrogen 22 mg/dl (9-20); Calcium 9.1 mg/dl (8.4-10.2); Carbon Dioxide 27 mmol/L (22.0-30.0); Chloride 103 mmol/L (98-107); Creatinine Clearance Estimated 116 mL/min (50-200); Estimated Glomerular Filt Rate 75 ml/min (>60); GFR (African American) 91 ML/MIN (>60); Globulin 2.7 g/dL (1.3-3.2); Glucose 194 mg/dl (74-100); Potassium 3.9 mmoL/L (3.5-5.1); Sodium 134 mmol/L (136-145); Total Protein,Serum 5.8 g/dl (6.3-8.2)
== END 2024-01-13 09:15 | disposition home or self-care (01) ==
LOC: INF 09:09
PROVIDERS: Visit Provider Internal Medicine Medical Oncology
DX: D69.3 Immune thrombocytopenic purpura (principal)
CPT/HCPCS: 36415; 80053

== ENCOUNTER 2024-01-15 09:13 | Outpatient (CLI) | payer BC, SELFPAY ==
[2024-01-15 09:16] VITALS: BMI 30.8
[2024-01-15 09:30] LABS: Basophils % 0.3 % (0.1-2.0); Eosinophils # 0.2 K/mm3 (0.0-0.4); Eosinophils % 1.7 % (0.1-12.0); Hemoglobin 16.2 g/dL (14.1-18.0); Lymphocytes # 0.8 K/mm3 (0.7-4.5); Lymphocytes % 6.9 % (10-50); Mean Corpuscular HGB Conc 32.4 g/dL (31.8-35.4); Mean Corpuscular Hemoglobin 31.4 pg (27.0-31.2); Mean Platelet Volume 9.3 fl (7.4-10.4); Monocytes # 0.9 K/mm3 (0.1-1.0); Monocytes % 7.7 % (1.7-9.3); Neutrophils # 10.2 K/mm3 (1.8-7.8); Neutrophils % 83.4 % (37.0-80.0); Platelet Count 87 K/mm3 (142-424); Red Blood Count 5.15 M/mm3 (4.60-6.20); Red Cell Distribution Width 16.4 % (11.5-17.5); White Blood Count 12.3 K/mm3 (4.8-10.8)
== END 2024-01-15 09:29 | disposition home or self-care (01) ==
LOC: INF 09:13
PROVIDERS: PCP Family Medicine; Visit Provider Internal Medicine Medical Oncology
DX: D69.3 Immune thrombocytopenic purpura (principal)
CPT/HCPCS: 36415; 85025

== ENCOUNTER 2024-01-19 09:32 | Outpatient (CLI) | payer BC, SELFPAY ==
[2024-01-19 09:33] VITALS: BMI 31.8
--- NOTE | 2024-01-19 09:40 | PC.NURSE ---
0940-collected labs via venipuncture stick in left ac with butterfly needle;pt d/c home and will call pt with results.
[2024-01-19 09:57] LABS: Basophils % 0.2 % (0.1-2.0); Eosinophils # 0.1 K/mm3 (0.0-0.4); Eosinophils % 0.6 % (0.1-12.0); Hematocrit 48.6 % (42.0-52.0); Hemoglobin 15.8 g/dL (14.1-18.0); Lymphocytes # 0.8 K/mm3 (0.7-4.5); Lymphocytes % 4.3 % (10-50); Mean Corpuscular HGB Conc 32.6 g/dL (31.8-35.4); Mean Corpuscular Hemoglobin 32.2 pg (27.0-31.2); Mean Corpuscular Volume 98.7 fl (80-94); Mean Platelet Volume 11.1 fl (7.4-10.4); Monocytes % 5.7 % (1.7-9.3); Neutrophils # 15.9 K/mm3 (1.8-7.8); Neutrophils % 89.2 % (37.0-80.0); Red Blood Count 4.92 M/mm3 (4.60-6.20); Red Cell Distribution Width 16.6 % (11.5-17.5); White Blood Count 17.8 K/mm3 (4.8-10.8)
[2024-01-19 09:58] LABS: Platelet Count 31 K/mm3 (142-424)
[2024-01-19 10:00] LABS: MANUAL DIFFERENTIAL MANUAL DIFFERENTIAL (MANUAL DIFF)
[2024-01-19 10:51] LABS: Lymphocytes % 6 % (10-50); Monocytes % 2 % (2-9); Neutrophils % 92 % (42-76); Platelet Estimate Marked Decrease; RBC Morphology Normal; Total Cells Counted 100
== END 2024-01-19 09:44 | disposition home or self-care (01) ==
LOC: INF 09:33
PROVIDERS: PCP Family Medicine; Visit Provider Internal Medicine Medical Oncology
DX: D69.3 Immune thrombocytopenic purpura (principal)
CPT/HCPCS: 36415; 85007; 85025

== ENCOUNTER 2024-01-22 12:35 | Outpatient (CLI) | payer BC, SELFPAY ==
[2024-01-22 12:39] VITALS: BMI 30.8
--- NOTE | 2024-01-22 12:50 | PC.NURSE ---
1250-collected labs via venipuncture stick with butterfly needle in right ac;pt to hematology appointment.
[2024-01-22 13:00] LABS: Basophils # 0.1 K/mm3 (0-0.2); Basophils % 0.3 % (0.1-2.0); Eosinophils % 0.2 % (0.1-12.0); Hematocrit 47.9 % (42.0-52.0); Hemoglobin 15.5 g/dL (14.1-18.0); Lymphocytes # 0.5 K/mm3 (0.7-4.5); Lymphocytes % 3.1 % (10-50); Mean Corpuscular HGB Conc 32.3 g/dL (31.8-35.4); Mean Corpuscular Volume 99.1 fl (80-94); Mean Platelet Volume 9.8 fl (7.4-10.4); Monocytes # 0.4 K/mm3 (0.1-1.0); Monocytes % 2.2 % (1.7-9.3); Neutrophils # 15.6 K/mm3 (1.8-7.8); Neutrophils % 94.2 % (37.0-80.0); Red Blood Count 4.83 M/mm3 (4.60-6.20); Red Cell Distribution Width 16.7 % (11.5-17.5); White Blood Count 16.5 K/mm3 (4.8-10.8)
[2024-01-22 13:12] LABS: Platelet Count 7 K/mm3 (142-424)
[2024-01-22 13:13] LABS: MANUAL DIFFERENTIAL MANUAL DIFFERENTIAL (MANUAL DIFF)
--- NOTE | 2024-01-22 13:14 | PC.NURSE ---
LAB CALLED WITH CRITICAL RESULT PLATELET COUNT OF 7. DR BLANK NOTIFIED.
[2024-01-22 14:51] LABS: Lymphocytes % 5 % (10-50); Monocytes % 2 % (2-9); Neutrophils % 90 % (42-76); Total Cells Counted 100
[2024-01-22 14:52] LABS: Platelet Estimate Marked Decrease
[2024-01-22 14:53] LABS: RBC Morphology Normal
== END 2024-01-22 12:55 | disposition home or self-care (01) ==
LOC: INF 12:35
PROVIDERS: PCP Family Medicine; Visit Provider Internal Medicine Medical Oncology
DX: D69.3 Immune thrombocytopenic purpura (principal)
CPT/HCPCS: 36415; 85007; 85025

== ENCOUNTER 2024-01-26 10:22 | Outpatient (CLI) | payer BC, SELFPAY ==
[2024-01-26 10:26] VITALS: BMI 30.7
[2024-01-26 11:00] LABS: Basophils % 0.1 % (0.1-2.0); Eosinophils % 0.3 % (0.1-12.0); Hematocrit 44.4 % (42.0-52.0); Hemoglobin 14.7 g/dL (14.1-18.0); Lymphocytes # 0.4 K/mm3 (0.7-4.5); Lymphocytes % 3.8 % (10-50); Mean Corpuscular Hemoglobin 32.1 pg (27.0-31.2); Mean Corpuscular Volume 97.3 fl (80-94); Monocytes # 0.6 K/mm3 (0.1-1.0); Monocytes % 4.7 % (1.7-9.3); Neutrophils # 10.5 K/mm3 (1.8-7.8); Neutrophils % 91.1 % (37.0-80.0); Platelet Count 91 K/mm3 (142-424); Red Blood Count 4.57 M/mm3 (4.60-6.20); Red Cell Distribution Width 16.1 % (11.5-17.5); White Blood Count 11.6 K/mm3 (4.8-10.8)
--- NOTE | 2024-01-26 11:01 | PC.NURSE ---
1046 CBC collected via venipuncture to L AC with butterfly needle. 2 unsuccessful attempts, one to R hand and one to R AC. Patient tolerated well with no problems noted.
[2024-01-26 11:06] LABS: MANUAL DIFFERENTIAL MANUAL DIFFERENTIAL (MANUAL DIFF)
[2024-01-26 12:03] LABS: Lymphocytes % 11 % (10-50); Neutrophils % 89 % (42-76); Platelet Estimate Moderate Decrease; RBC Morphology Normal; Total Cells Counted 100
== END 2024-01-26 11:20 | disposition home or self-care (01) ==
LOC: INF 10:22
PROVIDERS: PCP Family Medicine; Visit Provider Internal Medicine Medical Oncology
DX: D69.6 Thrombocytopenia, unspecified (principal)
CPT/HCPCS: 36415; 85007; 85025

== ENCOUNTER 2024-01-28 08:46 | Outpatient (CLI) | payer BC, SELFPAY ==
[2024-01-28 08:54] VITALS: BMI 30.7
[2024-01-28 09:08] LABS: Basophils % 0.2 % (0.1-2.0); Eosinophils # 0.1 K/mm3 (0.0-0.4); Eosinophils % 0.6 % (0.1-12.0); Hematocrit 50.2 % (42.0-52.0); Hemoglobin 16.3 g/dL (14.1-18.0); Lymphocytes # 0.5 K/mm3 (0.7-4.5); Lymphocytes % 2.8 % (10-50); Mean Corpuscular HGB Conc 32.4 g/dL (31.8-35.4); Mean Corpuscular Volume 98.6 fl (80-94); Mean Platelet Volume 9.6 fl (7.4-10.4); Monocytes # 1.1 K/mm3 (0.1-1.0); Monocytes % 6.7 % (1.7-9.3); Neutrophils # 14.9 K/mm3 (1.8-7.8); Neutrophils % 89.7 % (37.0-80.0); Platelet Count 136 K/mm3 (142-424); Red Blood Count 5.09 M/mm3 (4.60-6.20); Red Cell Distribution Width 15.9 % (11.5-17.5); White Blood Count 16.6 K/mm3 (4.8-10.8)
[2024-01-28 09:10] LABS: MANUAL DIFFERENTIAL MANUAL DIFFERENTIAL (MANUAL DIFF)
--- NOTE | 2024-01-28 09:10 | PC.NURSE ---
0859- cbc, bun, creatinine and pt/ptt drawn per MD order via butterfly needle in right ac. needle removed and coban applied. pt tolerated well.
[2024-01-28 09:23] LABS: INR 1.19 (0.9-1.1); Prothrombin Time 12.7 seconds (10.1-12.5)
[2024-01-28 09:25] LABS: Lymphocytes % 4 % (10-50); Monocytes % 9 % (2-9); Neutrophils % 87 % (42-76); Platelet Estimate Slight Decrease; RBC Morphology Normal; Total Cells Counted 100
[2024-01-28 09:26] LABS: Activated Partial Thrombo Time 23.2 seconds (22.8-30.6); Blood Urea Nitrogen 26 mg/dl (9-20); Creatinine Clearance Estimated 104 mL/min (50-200); Estimated Glomerular Filt Rate 67 ml/min (>60); GFR (African American) 82 ML/MIN (>60)
== END 2024-01-28 09:05 | disposition home or self-care (01) ==
LOC: INF 08:46
PROVIDERS: PCP Family Medicine; Visit Provider Internal Medicine Medical Oncology
DX: D69.3 Immune thrombocytopenic purpura (principal)
CPT/HCPCS: 36415; 82565; 84520; 85007; 85025; 85610; 85730

== ENCOUNTER 2024-01-29 07:33 | Outpatient (CLI) | payer BC, SELFPAY ==
[2024-01-29] VITALS (9 sets, daily range): BP systolic 124–162; BP diastolic 72–89; PULSE 68–79; RESP 14–18; TEMP 36.1–36.6; O2SAT 98–100
--- NOTE | 2024-01-29 07:39 | CT_ITS ---
FINAL REPORT CLINICAL HISTORY: CT guided bone biopsy. Medication: Versed: 2 Fentanyl: 50 FINDINGS: CT GUIDED BONE MARROW BIOPSY. HISTORY: Low platelet count. ATTENDING PHYSICIAN: Dr. Faulkner PHYSICIAN WATCH REPAIR TECHNICIAN: Narciso Trevizo PA-C PROCEDURE: After informed consent was obtained and a timeout was performed, the patient was prepped and draped in usual sterile fashion over the left posterior iliac crest. Utilizing local anesthesia and sterile technique with a bone marrow biopsy system, access to the marrow was obtained. And marrow aspirate and core samples were obtained. The patient received mild procedural sedation. The patient tolerated the procedure well and left the department in good condition. IMPRESSION: Status post CT guided biopsy of the bone marrow without immediate complication. PROCEDURAL SEDATION: 2 mg of IV Versed and 50 mcg of Fentanyl were administered. Continuous vital sign monitoring was used. An RN was present during the sedation process. Overall sedation time was minutes. Films reviewed , interpreted and dictated by Dr. Faulkner. Transcribed by Narciso Trevizo PA-C. Reviewed, Interpreted and Dictated by Carloz Faulkner MD Transcribed by RINA Milian Authenticated and . [facility]
[2024-01-29 08:43] LABS: POC Glucose,Bedside 100 (70-110)
[2024-01-29] MEDS: LIDOCAINE 1% W/EPI 1:100,000 20ML VIAL IJ (09:46)
== END 2024-01-29 10:43 | disposition home or self-care (01) ==
PROVIDERS: PCP Family Medicine; Visit Provider Internal Medicine Medical Oncology
DX: R06.02 Shortness of breath (principal); D69.6 Thrombocytopenia, unspecified; Z79.899 Other long term (current) drug therapy
CPT/HCPCS: 38221; 77012; 82962

== ENCOUNTER 2024-02-01 12:24 | Outpatient (CLI) | payer BC, SELFPAY ==
[2024-02-01 12:26] VITALS: BMI 30.7
[2024-02-01 12:47] LABS: Basophils # 0.1 K/mm3 (0-0.2); Basophils % 0.5 % (0.1-2.0); Eosinophils # 0.4 K/mm3 (0.0-0.4); Eosinophils % 2.7 % (0.1-12.0); Hematocrit 46.2 % (42.0-52.0); Lymphocytes # 1.3 K/mm3 (0.7-4.5); Lymphocytes % 8.5 % (10-50); Mean Corpuscular HGB Conc 32.4 g/dL (31.8-35.4); Mean Corpuscular Hemoglobin 31.7 pg (27.0-31.2); Mean Corpuscular Volume 97.8 fl (80-94); Mean Platelet Volume 10.7 fl (7.4-10.4); Monocytes % 6.9 % (1.7-9.3); Neutrophils % 81.3 % (37.0-80.0); Platelet Count 55 K/mm3 (142-424); Red Blood Count 4.72 M/mm3 (4.60-6.20); White Blood Count 14.8 K/mm3 (4.8-10.8)
[2024-02-01 12:57] LABS: Activated Partial Thrombo Time 27.2 seconds (22.8-30.6); INR 1.43 (0.9-1.1); Prothrombin Time 15.1 seconds (10.1-12.5)
[2024-02-01 13:26] LABS: Alanine Aminotransferase 44 U/L (12-78); Albumin Level 2.8 g/dl (3.5-5.0); Albumin/Globulin Ratio 1.1 (1.1-1.8); Alkaline Phosphatase 87 U/L (38-126); Anion Gap 6.2 mEq/L (5-15); Aspartate Amino Transferase 43 U/L (17-59); Bilirubin,Total 3.6 mg/dl (0.2-1.3); Blood Urea Nitrogen 13 mg/dl (9-20); Calcium 8.8 mg/dl (8.4-10.2); Carbon Dioxide 29 mmol/L (22.0-30.0); Chloride 100 mmol/L (98-107); Creatinine Clearance Estimated 114 mL/min (50-200); Estimated Glomerular Filt Rate 85 ml/min (>60); GFR (African American) 103 ML/MIN (>60); Globulin 2.5 g/dL (1.3-3.2); Glucose 102 mg/dl (74-100); Potassium 3.2 mmoL/L (3.5-5.1); Sodium 132 mmol/L (136-145); Total Protein,Serum 5.3 g/dl (6.3-8.2)
== END 2024-02-01 12:50 | disposition home or self-care (01) ==
LOC: INF 12:24
PROVIDERS: PCP Family Medicine; Visit Provider Internal Medicine Medical Oncology
DX: D69.6 Thrombocytopenia, unspecified (principal)
CPT/HCPCS: 36415; 80053; 85025; 85610; 85730

== ENCOUNTER 2024-02-04 09:27 | Outpatient (CLI) | payer BC, SELFPAY ==
[2024-02-04] VITALS (17 sets, daily range): BP systolic 122–160; BP diastolic 68–100; PULSE 66–81; RESP 14–18; O2SAT 99; BMI 30.7
[2024-02-04 09:45] LABS: Basophils % 0.2 % (0.1-2.0); Eosinophils # 0.1 K/mm3 (0.0-0.4); Eosinophils % 0.3 % (0.1-12.0); Hematocrit 46.8 % (42.0-52.0); Hemoglobin 15.4 g/dL (14.1-18.0); Lymphocytes % 5.6 % (10-50); Mean Corpuscular HGB Conc 32.9 g/dL (31.8-35.4); Mean Corpuscular Hemoglobin 32.3 pg (27.0-31.2); Mean Corpuscular Volume 98.2 fl (80-94); Mean Platelet Volume 9.2 fl (7.4-10.4); Monocytes # 0.9 K/mm3 (0.1-1.0); Neutrophils # 15.8 K/mm3 (1.8-7.8); Neutrophils % 88.9 % (37.0-80.0); Platelet Count 62 K/mm3 (142-424); Red Blood Count 4.77 M/mm3 (4.60-6.20); Red Cell Distribution Width 15.9 % (11.5-17.5); White Blood Count 17.8 K/mm3 (4.8-10.8)
[2024-02-04 09:53] LABS: MANUAL DIFFERENTIAL MANUAL DIFFERENTIAL (MANUAL DIFF)
[2024-02-04 10:50] LABS: Lymphocytes % 9 % (10-50); Monocytes % 3 % (2-9); Neutrophils % 88 % (42-76); Total Cells Counted 100
[2024-02-04 10:51] LABS: Platelet Estimate Normal; RBC Morphology Normal
--- NOTE | 2024-02-04 11:33 | PC.NURSE ---
1015- pt left for doctors appointment at 1015 returned at 1115. iv still intact and patent.
[2024-02-04] MEDS: SODIUM CHLORIDE 0.9% 50ML BAG 50 ML IV (12:06)
[2024-02-04] MEDS: GAMUNEX C IV (12:06)
--- NOTE | 2024-02-04 16:39 | PC.NURSE ---
Report received from Emi Murphy RN, pt in stable condition.
== END 2024-02-04 17:07 | disposition home or self-care (01) ==
LOC: INF 09:27
PROVIDERS: PCP Family Medicine; Visit Provider Internal Medicine Medical Oncology
DX: D69.3 Immune thrombocytopenic purpura (principal)
CPT/HCPCS: 85007; 85025; 96365; 96366; J1561

== ENCOUNTER 2024-02-05 07:58 | Outpatient (CLI) | payer BC, SELFPAY ==
[2024-02-05] VITALS (8 sets, daily range): BP systolic 123–152; BP diastolic 59–81; PULSE 67–83; RESP 18–19; O2SAT 100
[2024-02-05] MEDS: GAMUNEX C IV (09:20)
[2024-02-05] MEDS: SODIUM CHLORIDE 0.9% 50ML BAG 50 ML IV (09:20)
== END 2024-02-05 13:34 | disposition home or self-care (01) ==
PROVIDERS: PCP Family Medicine; Visit Provider Internal Medicine Medical Oncology
DX: D69.3 Immune thrombocytopenic purpura (principal)
CPT/HCPCS: 96365; 96366; J1561

== ENCOUNTER 2024-02-08 08:49 | Outpatient (CLI) | payer BC, SELFPAY ==
[2024-02-08 08:58] VITALS: BMI 31.8
--- NOTE | 2024-02-08 09:04 | PC.NURSE ---
0904-collected labs via venipuncture stick in right hand; pt to wait on results and then d/c home.
[2024-02-08 09:11] LABS: Basophils # 0.1 K/mm3 (0-0.2); Basophils % 0.7 % (0.1-2.0); Eosinophils # 0.2 K/mm3 (0.0-0.4); Eosinophils % 1.6 % (0.1-12.0); Hematocrit 43.6 % (42.0-52.0); Hemoglobin 14.6 g/dL (14.1-18.0); Lymphocytes # 0.9 K/mm3 (0.7-4.5); Lymphocytes % 8.1 % (10-50); Mean Corpuscular HGB Conc 33.4 g/dL (31.8-35.4); Mean Corpuscular Hemoglobin 32.2 pg (27.0-31.2); Mean Corpuscular Volume 96.3 fl (80-94); Mean Platelet Volume 8.4 fl (7.4-10.4); Monocytes # 0.6 K/mm3 (0.1-1.0); Monocytes % 5.3 % (1.7-9.3); Neutrophils # 9.6 K/mm3 (1.8-7.8); Neutrophils % 84.3 % (37.0-80.0); Platelet Count 138 K/mm3 (142-424); Red Blood Count 4.53 M/mm3 (4.60-6.20); Red Cell Distribution Width 15.8 % (11.5-17.5); White Blood Count 11.4 K/mm3 (4.8-10.8)
[2024-02-08 09:33] LABS: Chloride 106 mmol/L (98-107); Sodium 132 mmol/L (136-145)
[2024-02-08 09:34] LABS: Potassium 3.5 mmoL/L (3.5-5.1)
[2024-02-08 09:36] LABS: Alanine Aminotransferase 34 U/L (12-78); Albumin Level 2.5 g/dl (3.5-5.0); Alkaline Phosphatase 97 U/L (38-126); Aspartate Amino Transferase 49 U/L (17-59); Blood Urea Nitrogen 9 mg/dl (9-20); Creatinine Clearance Estimated 119 mL/min (50-200); Estimated Glomerular Filt Rate 97 ml/min (>60); GFR (African American) 118 ML/MIN (>60)
[2024-02-08 09:37] LABS: Albumin/Globulin Ratio 0.5 (1.1-1.8); Anion Gap 6.5 mEq/L (5-15); Calcium 8.4 mg/dl (8.4-10.2); Carbon Dioxide 23 mmol/L (22.0-30.0); Globulin 4.7 g/dL (1.3-3.2); Glucose 120 mg/dl (74-100); Total Protein,Serum 7.2 g/dl (6.3-8.2)
== END 2024-02-08 09:15 | disposition home or self-care (01) ==
LOC: INF 08:49
PROVIDERS: PCP Family Medicine; Visit Provider Internal Medicine Medical Oncology
DX: D69.3 Immune thrombocytopenic purpura (principal); Z79.899 Other long term (current) drug therapy
CPT/HCPCS: 36415; 80053; 85025

== ENCOUNTER 2024-02-15 10:12 | Outpatient (CLI) | payer BC, SELFPAY ==
--- NOTE | 2024-02-15 10:14 | US_ITS ---
FINAL REPORT CLINICAL HISTORY: ascites, cirrhosis COMPARISON: None FINDINGS: Sonographic images of the abdomen were obtained. The liver has a coarsened texture and nodular margins, consistent with the clinical diagnosis of cirrhosis. There is marked gallbladder wall thickening, with the wall measuring 1.1 cm in diameter. There is a small polyp present in the gallbladder. There is no evidence of biliary ductal dilatation. The common hepatic duct measures 3 mm, which is within normal limits. Limited images of the pancreas are unremarkable. The spleen size is normal. The right kidney measures 10 centimeters in length. The left kidney measures 12.5 cm in length. There is normal renal echogenicity. There is no evidence of hydronephrosis. The aorta has an unremarkable appearance. Limited images of the inferior vena cava are unremarkable. Ascites is present throughout the abdomen. IMPRESSION: Nodular and coarsened appearance of the liver, consistent with the clinical diagnosis of cirrhosis. Ascites is also present. There is marked thickening of the gallbladder wall without definite stones seen. This may represent a chronic acalculous cholecystitis. Reviewed, Interpreted and Dictated by Carloz Faulkner MD Transcribed by Becky Mccarthy Authenticated and [facility]
== END 2024-02-15 23:59 | disposition home or self-care (01) ==
LOC: RAD 10:13
PROVIDERS: PCP Family Medicine; Visit Provider Physician Assistant
DX: R06.09 Other forms of dyspnea (principal); R18.8 Other ascites; K74.60 Unspecified cirrhosis of liver
CPT/HCPCS: 76700

== ENCOUNTER 2024-02-16 08:48 | Outpatient (CLI) | payer BC, SELFPAY ==
--- NOTE | 2024-02-16 08:55 | PC.NURSE ---
0855-collected labs via venipuncture stick with butterfly needle in right ac; pt to md appointment.
[2024-02-16 08:58] VITALS: BMI 32.2
[2024-02-16 09:16] LABS: Basophils # 0.1 K/mm3 (0-0.2); Eosinophils # 0.4 K/mm3 (0.0-0.4); Eosinophils % 3.6 % (0.1-12.0); Hematocrit 42.8 % (42.0-52.0); Hemoglobin 13.7 g/dL (14.1-18.0); Lymphocytes # 1.7 K/mm3 (0.7-4.5); Lymphocytes % 15.4 % (10-50); Mean Corpuscular HGB Conc 31.9 g/dL (31.8-35.4); Mean Corpuscular Volume 97.3 fl (80-94); Mean Platelet Volume 7.7 fl (7.4-10.4); Monocytes # 1.4 K/mm3 (0.1-1.0); Neutrophils # 7.7 K/mm3 (1.8-7.8); Platelet Count 285 K/mm3 (142-424); Red Cell Distribution Width 16.3 % (11.5-17.5); White Blood Count 11.3 K/mm3 (4.8-10.8)
[2024-02-16 09:17] LABS: Chloride 104 mmol/L (98-107); Potassium 3.5 mmoL/L (3.5-5.1); Sodium 134 mmol/L (136-145)
[2024-02-16 09:20] LABS: Alanine Aminotransferase 24 U/L (12-78); Albumin Level 2.3 g/dl (3.5-5.0); Albumin/Globulin Ratio 0.6 (1.1-1.8); Alkaline Phosphatase 85 U/L (38-126); Anion Gap 5.5 mEq/L (5-15); Aspartate Amino Transferase 36 U/L (17-59); Bilirubin,Total 2.2 mg/dl (0.2-1.3); Blood Urea Nitrogen 9 mg/dl (9-20); Calcium 8.9 mg/dl (8.4-10.2); Carbon Dioxide 28 mmol/L (22.0-30.0); Creatinine Clearance Estimated 120 mL/min (50-200); Estimated Glomerular Filt Rate 85 ml/min (>60); GFR (African American) 103 ML/MIN (>60); Globulin 3.7 g/dL (1.3-3.2); Glucose 111 mg/dl (74-100)
== END 2024-02-16 09:00 | disposition home or self-care (01) ==
LOC: INF 08:49
PROVIDERS: PCP Family Medicine; Visit Provider Internal Medicine Medical Oncology
DX: D69.3 Immune thrombocytopenic purpura (principal); R06.09 Other forms of dyspnea
CPT/HCPCS: 36415; 80053; 85025

== ENCOUNTER 2024-02-23 10:10 | Outpatient (CLI) | payer BC, SELFPAY ==
[2024-02-23 10:14] VITALS: BMI 31.9
--- NOTE | 2024-02-23 10:20 | PC.NURSE ---
1020-collected labs via venipuncture stick in right ac;pt to d/c home will call with lab results.
[2024-02-23 10:29] LABS: Basophils # 0.2 K/mm3 (0-0.2); Basophils % 1.2 % (0.1-2.0); Eosinophils # 0.2 K/mm3 (0.0-0.4); Eosinophils % 1.1 % (0.1-12.0); Hematocrit 44.8 % (42.0-52.0); Hemoglobin 14.9 g/dL (14.1-18.0); Lymphocytes # 1.4 K/mm3 (0.7-4.5); Mean Corpuscular HGB Conc 33.2 g/dL (31.8-35.4); Mean Corpuscular Hemoglobin 31.8 pg (27.0-31.2); Mean Corpuscular Volume 95.6 fl (80-94); Monocytes # 1.5 K/mm3 (0.1-1.0); Monocytes % 12.2 % (1.7-9.3); Neutrophils # 9.5 K/mm3 (1.8-7.8); Neutrophils % 74.5 % (37.0-80.0); Platelet Count 332 K/mm3 (142-424); Red Blood Count 4.68 M/mm3 (4.60-6.20); White Blood Count 12.7 K/mm3 (4.8-10.8)
== END 2024-02-23 10:22 | disposition home or self-care (01) ==
LOC: INF 10:10
PROVIDERS: PCP Family Medicine; Visit Provider Internal Medicine Medical Oncology
DX: D69.3 Immune thrombocytopenic purpura (principal)
CPT/HCPCS: 36415; 85025

== ENCOUNTER 2024-02-29 10:57 | Outpatient (CLI) | payer BC, SELFPAY ==
[2024-02-29 11:06] VITALS: BMI 31.9
--- NOTE | 2024-02-29 11:17 | PC.NURSE ---
1117-collected labs via venipuncture stick in right ac with butterfly needle;pt to d/c home.
[2024-02-29 11:25] LABS: Basophils # 0.1 K/mm3 (0-0.2); Basophils % 0.9 % (0.1-2.0); Eosinophils # 0.2 K/mm3 (0.0-0.4); Eosinophils % 1.6 % (0.1-12.0); Hematocrit 41.7 % (42.0-52.0); Hemoglobin 13.6 g/dL (14.1-18.0); Lymphocytes % 16.3 % (10-50); Mean Corpuscular HGB Conc 32.5 g/dL (31.8-35.4); Mean Corpuscular Hemoglobin 31.3 pg (27.0-31.2); Mean Corpuscular Volume 96.3 fl (80-94); Mean Platelet Volume 8.1 fl (7.4-10.4); Monocytes # 1.4 K/mm3 (0.1-1.0); Monocytes % 11.4 % (1.7-9.3); Neutrophils # 8.5 K/mm3 (1.8-7.8); Neutrophils % 69.8 % (37.0-80.0); Platelet Count 306 K/mm3 (142-424); Red Blood Count 4.33 M/mm3 (4.60-6.20); White Blood Count 12.1 K/mm3 (4.8-10.8)
[2024-02-29 11:53] LABS: Alanine Aminotransferase 24 U/L (12-78); Albumin Level 2.4 g/dl (3.5-5.0); Albumin/Globulin Ratio 0.7 (1.1-1.8); Alkaline Phosphatase 84 U/L (38-126); Anion Gap 10.3 mEq/L (5-15); Aspartate Amino Transferase 38 U/L (17-59); Bilirubin,Total 2.6 mg/dl (0.2-1.3); Blood Urea Nitrogen 20 mg/dl (9-20); Calcium 8.2 mg/dl (8.4-10.2); Carbon Dioxide 24 mmol/L (22.0-30.0); Chloride 103 mmol/L (98-107); Creatinine Clearance Estimated 92 mL/min (50-200); Estimated Glomerular Filt Rate 56 ml/min (>60); GFR (African American) 67 ML/MIN (>60); Globulin 3.4 g/dL (1.3-3.2); Glucose 115 mg/dl (74-100); Potassium 3.3 mmoL/L (3.5-5.1); Sodium 134 mmol/L (136-145); Total Protein,Serum 5.8 g/dl (6.3-8.2)
== END 2024-02-29 11:20 | disposition home or self-care (01) ==
LOC: INF 10:58
PROVIDERS: PCP Family Medicine; Visit Provider Internal Medicine Medical Oncology
DX: D69.3 Immune thrombocytopenic purpura (principal)
CPT/HCPCS: 36415; 80053; 85025

== ENCOUNTER 2024-03-09 12:30 | Outpatient (CLI) | payer BC, SELFPAY ==
[2024-03-09 12:33] VITALS: BMI 31.9
[2024-03-09 12:51] LABS: Basophils # 0.1 K/mm3 (0-0.2); Basophils % 0.8 % (0.1-2.0); Eosinophils # 0.4 K/mm3 (0.0-0.4); Eosinophils % 4.3 % (0.1-12.0); Hematocrit 42.3 % (42.0-52.0); Hemoglobin 13.5 g/dL (14.1-18.0); Lymphocytes # 1.6 K/mm3 (0.7-4.5); Lymphocytes % 16.4 % (10-50); Mean Corpuscular HGB Conc 31.8 g/dL (31.8-35.4); Mean Corpuscular Hemoglobin 31.2 pg (27.0-31.2); Mean Platelet Volume 8.3 fl (7.4-10.4); Monocytes % 9.8 % (1.7-9.3); Neutrophils # 6.9 K/mm3 (1.8-7.8); Neutrophils % 68.8 % (37.0-80.0); Platelet Count 209 K/mm3 (142-424); Red Blood Count 4.32 M/mm3 (4.60-6.20); Red Cell Distribution Width 15.6 % (11.5-17.5)
--- NOTE | 2024-03-09 14:07 | PC.NURSE ---
1241-BLOOD DRAWN FROM RIGHT AC USING BUTTERFLY NEEDLE TO CHECK WEEKLY CBC AT THIS TIME.
== END 2024-03-09 12:44 | disposition home or self-care (01) ==
LOC: INF 12:31
PROVIDERS: PCP Family Medicine; Visit Provider Internal Medicine Medical Oncology
DX: D69.3 Immune thrombocytopenic purpura (principal)
CPT/HCPCS: 36415; 85025

== ENCOUNTER 2024-03-14 08:10 | Day surgery (SDC) | payer BC, SELFPAY ==
[2024-03-14] VITALS (12 sets, daily range): BP systolic 113–159; BP diastolic 62–83; PULSE 65–77; RESP 17–18; TEMP 36.6; O2SAT 98–100; BMI 31.9
--- NOTE | 2024-03-14 07:43 | IR_ITS ---
APPROVED REPORT Patient Location: Outpatient PROCEDURES Selective coronary angiogram Drug-eluting stent deployment to the left main artery extending into the proximal LAD Intravascular ultrasound to the left main artery and LAD INDICATION Ischemic cardiomyopathy, Preoperative evaluation, Patient felt not to be a good candidate for coronary artery bypass surgery due to blood dyscrasia, liver disease and other comorbidities Informed consent was obtained prior to the procedure. COMPLICATIONS NONE Estimated Blood Loss: LESS THAN 10 ML TECHNIQUE One percent lidocaine used to anesthetize the right anterior aspect of the wrist. The right radial artery was accessed via the Seldinger technique. A 6 [place] sheath was placed in the right radial artery. 2.5 mg of Verapamil, 800 mcg of nitroglycerin, 1mg Lidocaine and 5000 U Heparin were given through the arterial sheath. The papa catheter was also used to perform selective coronary angiogram. At the end of the diagnostic angiogram I broke scrub and discussed the case with patient's . Due to the comorbidities of patient's other medical problems it was felt bypass surgery would not be appropriate. Because of this it was decided to proceed with percutaneous stenting of the left main artery extending into the LAD ANGIOGRAPHIC RESULTS The left main artery Has a distal eccentric 30% stenosis confined mostly to the LAD side The left anterior descending artery Has an ostial concentric 80% stenosis followed by widely patent stents The circumflex artery Gives rise to a medium sized ramus intermedius which has a proximal 70 to 80% stenosis the circumflex artery has a stent in the proximal segment widely patent free of in-stent restenosis with excellent proximal distal transitioning The right coronary artery Proximally occluded with the distal vessel filling via [id number] collaterals The LEIGH ventriculogram reveals Not performed The left ventricular end-diastolic pressure Not measured IMPRESSION Severe disease in the proximal LAD Successful stenting of the left main artery stenting of the proximal LAD Successful intravascular ultrasound of the left main artery and LAD PLAN 1. Continue dual antiplatelet therapy with Plavix and aspirin combined with Xarelto for 30 days then discontinue aspirin 2. LDL less than 55 to achieve that high intensity statin 3. Evaluation for AICD placement in 90 days if ejection fraction remains less than 35% 4. Standard therapy for systolic heart failure 5. Standard therapy for coronary artery disease 6. Recommend postponing elective knee replacement for the next couple of months until the stent is endothelialized Electronically signed by : Harjeet Guerrier MD 03/14/2024 14:45:23
[2024-03-14 08:52] LABS: Basophils # 0.1 K/mm3 (0-0.2); Basophils % 0.7 % (0.1-2.0); Eosinophils # 0.4 K/mm3 (0.0-0.4); Eosinophils % 4.3 % (0.1-12.0); Hematocrit 43.4 % (42.0-52.0); Lymphocytes # 1.7 K/mm3 (0.7-4.5); Lymphocytes % 18.8 % (10-50); Mean Corpuscular HGB Conc 32.3 g/dL (31.8-35.4); Mean Corpuscular Hemoglobin 31.8 pg (27.0-31.2); Mean Corpuscular Volume 98.4 fl (80-94); Mean Platelet Volume 8.2 fl (7.4-10.4); Monocytes % 10.8 % (1.7-9.3); Neutrophils # 5.9 K/mm3 (1.8-7.8); Neutrophils % 65.4 % (37.0-80.0); Platelet Count 235 K/mm3 (142-424); Red Blood Count 4.41 M/mm3 (4.60-6.20); Red Cell Distribution Width 15.5 % (11.5-17.5); White Blood Count 9.1 K/mm3 (4.8-10.8)
[2024-03-14 09:54] LABS: Chloride 107 mmol/L (98-107); Potassium 4.5 mmoL/L (3.5-5.1); Sodium 134 mmol/L (136-145)
[2024-03-14 09:57] LABS: Anion Gap 8.5 mEq/L (5-15); Blood Urea Nitrogen 7 mg/dl (9-20); Carbon Dioxide 23 mmol/L (22.0-30.0); Creatinine Clearance Estimated 119 mL/min (50-200); Estimated Glomerular Filt Rate 85 ml/min (>60); GFR (African American) 103 ML/MIN (>60)
[2024-03-14 09:58] LABS: Calcium 8.6 mg/dl (8.4-10.2); Glucose 94 mg/dl (74-100)
[2024-03-14] MEDS: VERAPAMIL 2.5MG/ML 2ML VIAL 2.5 MG IV (10:12)
[2024-03-14] MEDS: HEPARIN 1,000 UNITS/500ML NS (CATH LAB) 3000 UNIT IV (10:12)
[2024-03-14] MEDS: diphenhydrAMINE 50MG/ML VIAL 50 MG IV (10:12)
[2024-03-14] MEDS: HEPARIN 1,000 UNITS/ML 10ML VIAL (CATH LAB) 10000 UNIT IV (10:12)
[2024-03-14] MEDS: LIDOCAINE 1% 10ML MDV 20 ML IJ (10:12)
[2024-03-14] MEDS: NITROGLYCERIN 800MCG/8ML SYR (CATH LAB) 800 MCG IA (10:12)
[2024-03-14] MEDS: 0.9 % SODIUM CHLORIDE 500 ML 25 ML IV (10:13)
[2024-03-14] MEDS: FENTANYL 100MCG/2ML VIAL 50 MCG IV (10:17)
[2024-03-14] MEDS: MIDAZOLAM HCL 1MG/1ML 5ML VIAL 1 MG IV (10:17)
[2024-03-14] MEDS: CLOPIDOGREL 300MG TABLET 600 MG PO (10:56)
[2024-03-14] MEDS: IOPAMIDOL-370 (76%);100ML BOTTLE 95 ML IV (11:09)
[2024-03-14 11:11] LABS: CATHL Activated Clotting Time > 400 SEC (74-125)
== END 2024-03-14 14:06 | disposition home or self-care (01) ==
PROVIDERS: PCP Family Medicine; Visit Provider Internal Medicine
DX: I25.5 Ischemic cardiomyopathy (principal); I25.10 Atherosclerotic heart disease of native coronary artery without angina pectoris; Z79.899 Other long term (current) drug therapy; I48.0 Paroxysmal atrial fibrillation; E11.9 Type 2 diabetes mellitus without complications; I10 Essential (primary) hypertension; I49.3 Ventricular premature depolarization; I34.0 Nonrheumatic mitral (valve) insufficiency; K74.60 Unspecified cirrhosis of liver; D69.6 Thrombocytopenia, unspecified
CPT/HCPCS: 80048; 85025; 85347; 92928; 92978; 93454; 99152; 99153; C1725; C1769; C1876; C1894; C9600; J1644; Q9967

== ENCOUNTER 2024-03-23 10:53 | Outpatient (CLI) | payer BC, SELFPAY ==
--- NOTE | 2024-03-23 11:02 | PC.NURSE ---
1102-collected labs via venipuncture stick with butterfly needle;pt d/c home to notify pt with results
[2024-03-23 11:15] LABS: Basophils % 0.6 % (0.1-2.0); Eosinophils # 0.2 K/mm3 (0.0-0.4); Eosinophils % 2.9 % (0.1-12.0); Hematocrit 38.4 % (42.0-52.0); Hemoglobin 12.5 g/dL (14.1-18.0); Lymphocytes # 1.3 K/mm3 (0.7-4.5); Lymphocytes % 16.9 % (10-50); Mean Corpuscular HGB Conc 32.5 g/dL (31.8-35.4); Mean Corpuscular Hemoglobin 31.6 pg (27.0-31.2); Mean Corpuscular Volume 97.2 fl (80-94); Mean Platelet Volume 8.6 fl (7.4-10.4); Monocytes # 0.9 K/mm3 (0.1-1.0); Monocytes % 11.3 % (1.7-9.3); Neutrophils # 5.1 K/mm3 (1.8-7.8); Neutrophils % 68.4 % (37.0-80.0); Platelet Count 202 K/mm3 (142-424); Red Blood Count 3.95 M/mm3 (4.60-6.20); Red Cell Distribution Width 15.7 % (11.5-17.5); White Blood Count 7.5 K/mm3 (4.8-10.8)
[2024-03-23 11:18] LABS: Chloride 104 mmol/L (98-107); Sodium 132 mmol/L (136-145)
[2024-03-23 11:19] LABS: Potassium 3.7 mmoL/L (3.5-5.1)
[2024-03-23 11:21] LABS: Alanine Aminotransferase 22 U/L (12-78); Albumin Level 2.6 g/dl (3.5-5.0); Alkaline Phosphatase 77 U/L (38-126); Anion Gap 7.7 mEq/L (5-15); Aspartate Amino Transferase 46 U/L (17-59); Bilirubin,Direct 0.1 mg/dl (0.0-0.4); Bilirubin,Indirect 1.7 mg/dL (0.0-0.9); Bilirubin,Total 1.8 mg/dl (0.2-1.3); Bilirubin,Unconjugated 1.7 mg/dL (0.0-1.1); Blood Urea Nitrogen 9 mg/dl (9-20); Calcium 8.4 mg/dl (8.4-10.2); Carbon Dioxide 24 mmol/L (22.0-30.0); Estimated Glomerular Filt Rate 97 ml/min (>60); GFR (African American) 118 ML/MIN (>60); Glucose 108 mg/dl (74-100); Magnesium 1.2 mg/dl (1.6-2.3); Total Protein,Serum 5.8 g/dl (6.3-8.2)
== END 2024-03-23 11:05 | disposition home or self-care (01) ==
LOC: INF 10:53
PROVIDERS: Internal Medicine; PCP Family Medicine; Visit Provider Internal Medicine Medical Oncology
DX: R06.09 Other forms of dyspnea (principal); Z01.818 Encounter for other preprocedural examination; R06.02 Shortness of breath; I48.0 Paroxysmal atrial fibrillation; J90 Pleural effusion, not elsewhere classified; M25.562 Pain in left knee; G89.29 Other chronic pain; D64.9 Anemia, unspecified; K92.2 Gastrointestinal hemorrhage, unspecified; D69.6 Thrombocytopenia, unspecified; I49.3 Ventricular premature depolarization; I25.10 Atherosclerotic heart disease of native coronary artery without angina pectoris; I34.0 Nonrheumatic mitral (valve) insufficiency; I51.89 Other ill-defined heart diseases; I10 Essential (primary) hypertension
CPT/HCPCS: 36415; 80048; 80076; 83735; 85025

== ENCOUNTER 2024-04-05 09:34 | Outpatient (CLI) | payer MEDICARE, BC, SELFPAY ==
[2024-04-05 09:38] VITALS: BMI 33.2
--- NOTE | 2024-04-05 09:45 | PC.NURSE ---
0945-collected labs via venipuncture stick in left ac with butterfly needle; pt to d/c home
[2024-04-05 10:02] LABS: Basophils % 0.5 % (0.1-2.0); Eosinophils # 0.3 K/mm3 (0.0-0.4); Eosinophils % 3.1 % (0.1-12.0); Hematocrit 39.1 % (42.0-52.0); Hemoglobin 12.2 g/dL (14.1-18.0); Lymphocytes # 1.1 K/mm3 (0.7-4.5); Mean Corpuscular HGB Conc 31.3 g/dL (31.8-35.4); Mean Corpuscular Hemoglobin 30.7 pg (27.0-31.2); Mean Corpuscular Volume 98.1 fl (80-94); Mean Platelet Volume 8.6 fl (7.4-10.4); Monocytes # 0.9 K/mm3 (0.1-1.0); Neutrophils # 6.4 K/mm3 (1.8-7.8); Neutrophils % 73.4 % (37.0-80.0); Platelet Count 210 K/mm3 (142-424); Red Blood Count 3.98 M/mm3 (4.60-6.20); Red Cell Distribution Width 15.3 % (11.5-17.5); White Blood Count 8.7 K/mm3 (4.8-10.8)
== END 2024-04-05 09:50 | disposition home or self-care (01) ==
LOC: INF 09:35
PROVIDERS: PCP Family Medicine; Visit Provider Internal Medicine Medical Oncology
DX: D69.3 Immune thrombocytopenic purpura (principal)
CPT/HCPCS: 36415; 85025

== ENCOUNTER 2024-04-26 09:58 | Outpatient (CLI) | payer MEDICARE, BC, SELFPAY ==
--- NOTE | 2024-04-26 | CA_ITS ---
FINAL REPORT TECHNIQUE: Arterial duplex Doppler evaluation of the right lower extremity with spectral analysis. CLINICAL HISTORY: CAD, Afib-chronic, Extensive DVT with chronic edema and stasis wounds COMPARISON: None FINDINGS: Right lower extremity, flow velocities (cm per second): Common femoral artery: 102.5 Proximal SFA: 98 Distal SFA: 119 Popliteal: 92.5 Anterior tibial artery: 62.5 Posterior tibial artery: 59.1 IMPRESSION: Waveforms are noted to be biphasic in the femoral and popliteal arteries, and monophasic in the infrapopliteal arterial vessels. No levels of stenosis or occlusion are identified. Reviewed, Interpreted and Dictated by Abundio Sepulveda MD Transcribed by Becky Mccarthy Authenticated and [facility]
== END 2024-04-26 23:59 | disposition home or self-care (01) ==
LOC: RT 09:58
PROVIDERS: PCP Family Medicine; Visit Provider Family Medicine
DX: E11.59 Type 2 diabetes mellitus with other circulatory complications (principal); M79.604 Pain in right leg; I25.10 Atherosclerotic heart disease of native coronary artery without angina pectoris
CPT/HCPCS: 93926

== ENCOUNTER 2024-05-16 09:56 | Outpatient (CLI) | payer MEDICARE, BC, SELFPAY ==
--- NOTE | 2024-05-16 10:06 | PC.NURSE ---
1006-collected labs via venipuncture stick in right ac with butterfly needle;pt ok to d/c home
[2024-05-16 10:24] LABS: Basophils % 0.6 % (0.1-2.0); Eosinophils # 0.3 K/mm3 (0.0-0.4); Eosinophils % 5.6 % (0.1-12.0); Hematocrit 30.4 % (42.0-52.0); Lymphocytes % 15.5 % (10-50); Mean Corpuscular HGB Conc 32.9 g/dL (31.8-35.4); Mean Corpuscular Hemoglobin 30.7 pg (27.0-31.2); Mean Corpuscular Volume 93.3 fl (80-94); Monocytes # 0.7 K/mm3 (0.1-1.0); Monocytes % 10.8 % (1.7-9.3); Neutrophils # 4.1 K/mm3 (1.8-7.8); Neutrophils % 67.4 % (37.0-80.0); Platelet Count 166 K/mm3 (142-424); Red Blood Count 3.26 M/mm3 (4.60-6.20); Red Cell Distribution Width 14.7 % (11.5-17.5); White Blood Count 6.1 K/mm3 (4.8-10.8)
[2024-05-16 10:29] LABS: Chloride 109 mmol/L (98-107); Potassium 3.5 mmoL/L (3.5-5.1); Sodium 138 mmol/L (136-145)
[2024-05-16 10:31] LABS: Blood Urea Nitrogen 14 mg/dl (9-20); Estimated Glomerular Filt Rate 85 ml/min (>60); GFR (African American) 102 ML/MIN (>60)
[2024-05-16 10:32] LABS: Alanine Aminotransferase 17 U/L (12-78); Albumin Level 2.8 g/dl (3.5-5.0); Alkaline Phosphatase 78 U/L (38-126); Anion Gap 5.5 mEq/L (5-15); Aspartate Amino Transferase 28 U/L (17-59); Bilirubin,Total 1.3 mg/dl (0.2-1.3); Calcium 8.6 mg/dl (8.4-10.2); Carbon Dioxide 27 mmol/L (22.0-30.0); Globulin 2.9 g/dL (1.3-3.2); Glucose 92 mg/dl (74-100); Total Protein,Serum 5.7 g/dl (6.3-8.2)
== END 2024-05-16 10:07 | disposition home or self-care (01) ==
LOC: INF 09:59
PROVIDERS: Nurse Practitioner; PCP Family Medicine; Visit Provider Internal Medicine
DX: R94.31 Abnormal electrocardiogram [ECG] [EKG] (principal); I25.10 Atherosclerotic heart disease of native coronary artery without angina pectoris; I49.3 Ventricular premature depolarization
CPT/HCPCS: 36415; 80053; 85025

== ENCOUNTER 2024-05-24 10:08 | Outpatient (CLI) | payer MEDICARE, BC, SELFPAY ==
[2024-05-24 10:12] VITALS: BMI 32.7
--- NOTE | 2024-05-24 10:20 | PC.NURSE ---
1020-collected labs via venipuncture stick in right ac with butterfly needle;pt d/c home
[2024-05-24 10:38] LABS: Basophils % 0.5 % (0.1-2.0); Eosinophils # 0.2 K/mm3 (0.0-0.4); Eosinophils % 4.9 % (0.1-12.0); Hematocrit 25.1 % (42.0-52.0); Hemoglobin 9.2 g/dL (14.1-18.0); Lymphocytes % 21.5 % (10-50); Mean Corpuscular HGB Conc 36.8 g/dL (31.8-35.4); Mean Corpuscular Hemoglobin 34.4 pg (27.0-31.2); Mean Corpuscular Volume 93.6 fl (80-94); Mean Platelet Volume 9.4 fl (7.4-10.4); Monocytes # 0.6 K/mm3 (0.1-1.0); Monocytes % 13.2 % (1.7-9.3); Neutrophils # 2.6 K/mm3 (1.8-7.8); Neutrophils % 59.9 % (37.0-80.0); Platelet Count 146 K/mm3 (142-424); Red Blood Count 2.68 M/mm3 (4.60-6.20); Red Cell Distribution Width 14.7 % (11.5-17.5); White Blood Count 4.4 K/mm3 (4.8-10.8)
[2024-05-24 10:54] LABS: Alanine Aminotransferase 17 U/L (12-78); Albumin Level 2.5 g/dl (3.5-5.0); Albumin/Globulin Ratio 0.8 (1.1-1.8); Alkaline Phosphatase 78 U/L (38-126); Anion Gap 8.9 mEq/L (5-15); Aspartate Amino Transferase 33 U/L (17-59); Bilirubin,Total 1.1 mg/dl (0.2-1.3); Blood Urea Nitrogen 11 mg/dl (9-20); Calcium 8.7 mg/dl (8.4-10.2); Carbon Dioxide 23 mmol/L (22.0-30.0); Chloride 106 mmol/L (98-107); Creatinine Clearance Estimated 117 mL/min (50-200); Estimated Glomerular Filt Rate 113 ml/min (>60); GFR (African American) 137 ML/MIN (>60); Glucose 101 mg/dl (74-100); Potassium 3.9 mmoL/L (3.5-5.1); Sodium 134 mmol/L (136-145); Total Protein,Serum 5.5 g/dl (6.3-8.2)
[2024-05-24 11:24] LABS: Iron 61 ug/dL (49-181)
[2024-05-24 11:33] LABS: Total Iron Binding Capacity 320 ug/dL (261-462)
[2024-05-24 12:02] LABS: Ferritin 38.5 ng/ml (17.9-464)
[2024-05-24 12:10] LABS: Folate 5.83 ng/mL
[2024-05-24 12:11] LABS: Vitamin B12 > 1000 pg/mL (239-931)
== END 2024-05-24 10:20 | disposition home or self-care (01) ==
LOC: INF 10:09
PROVIDERS: PCP Family Medicine; Visit Provider Internal Medicine Medical Oncology
DX: D69.3 Immune thrombocytopenic purpura (principal); E78.2 Mixed hyperlipidemia; R60.0 Localized edema; Z68.32 Body mass index [BMI] 32.0-32.9, adult
CPT/HCPCS: 36415; 80053; 82607; 82728; 82746; 83540; 83550; 85025

== ENCOUNTER 2024-06-13 07:04 | Outpatient (CLI) | payer MEDICARE, BC, SELFPAY ==
--- NOTE | 2024-06-13 07:09 | CT_ITS ---
FINAL REPORT CLINICAL HISTORY: UMBILICAL HERNIA COMPARISON: 12/30/2023 FINDINGS: Axial CT images of the abdomen and pelvis were obtained without intravenous contrast. Coronal reformatted images were also obtained.This study was performed with techniques to keep radiation doses as low as reasonably achievable (ALARA). Individualized dose reduction techniques using automated exposure control or adjustment of mA and/or kV according to the patient''s size were employed. Abdomen: There is a small left pleural effusion which is improved compared to the prior study. There is partially improved right gynecomastia. There is no evidence of renal stone or hydronephrosis. The liver has a nodular contour which is consistent with cirrhosis. There is splenomegaly, consistent with portal hypertension. Moderate ascites is stable from the prior study. The pancreas has an unremarkable appearance. No mass or adenopathy is seen. There are probable postoperative changes at the level of the umbilicus without evidence of hernia. Pelvis: Bladder wall thickening is likely inflammatory. There are postoperative changes in the left anterior pelvis. There is subcutaneous stranding's consistent with mild anasarca. IMPRESSION: Probable postoperative changes at the level of the umbilicus without evidence of hernia. Changes of cirrhosis. Splenomegaly consistent with portal hypertension. Stable moderate ascites. Mild anasarca. Reviewed, Interpreted and Dictated by Robert Cruz III, MD Transcribed by Chiara Polanco Authenticated and [facility]
== END 2024-06-13 23:59 | disposition home or self-care (01) ==
LOC: RAD 07:05
PROVIDERS: PCP Family Medicine; Visit Provider Family Medicine
DX: K42.9 Umbilical hernia without obstruction or gangrene (principal)
CPT/HCPCS: 74176

== ENCOUNTER 2024-06-14 10:13 | Outpatient (CLI) | payer MEDICARE, BC, SELFPAY ==
[2024-06-14 10:27] VITALS: BMI 31.9
--- NOTE | 2024-06-14 10:30 | PC.NURSE ---
1030-collected labs via venipuncture stick in right ac with butterfly needle;pt d/c home will notify pt with results.
[2024-06-14 10:40] LABS: Basophils % 0.4 % (0.1-2.0); Eosinophils # 0.3 K/mm3 (0.0-0.4); Eosinophils % 5.1 % (0.1-12.0); Hematocrit 26.7 % (42.0-52.0); Hemoglobin 8.4 g/dL (14.1-18.0); Lymphocytes # 1.1 K/mm3 (0.7-4.5); Lymphocytes % 22.7 % (10-50); Mean Corpuscular HGB Conc 31.3 g/dL (31.8-35.4); Mean Corpuscular Hemoglobin 27.5 pg (27.0-31.2); Mean Platelet Volume 10.3 fl (7.4-10.4); Monocytes # 0.6 K/mm3 (0.1-1.0); Monocytes % 12.8 % (1.7-9.3); Neutrophils # 2.9 K/mm3 (1.8-7.8); Neutrophils % 58.9 % (37.0-80.0); Platelet Count 117 K/mm3 (142-424); Red Blood Count 3.04 M/mm3 (4.60-6.20); Red Cell Distribution Width 14.4 % (11.5-17.5)
[2024-06-14 10:48] LABS: Albumin Level 3.1 g/dl (3.5-5.0); Chloride 107 mmol/L (98-107); Potassium 4.4 mmoL/L (3.5-5.1); Sodium 131 mmol/L (136-145)
[2024-06-14 10:51] LABS: Alanine Aminotransferase 15 U/L (12-78); Albumin/Globulin Ratio 1.1 (1.1-1.8); Alkaline Phosphatase 78 U/L (38-126); Anion Gap 8.4 mEq/L (5-15); Aspartate Amino Transferase 27 U/L (17-59); Bilirubin,Total 1.2 mg/dl (0.2-1.3); Blood Urea Nitrogen 9 mg/dl (9-20); Carbon Dioxide 20 mmol/L (22.0-30.0); Creatinine Clearance Estimated 118 mL/min (50-200); Estimated Glomerular Filt Rate 85 ml/min (>60); GFR (African American) 102 ML/MIN (>60); Globulin 2.9 g/dL (1.3-3.2)
[2024-06-14 10:52] LABS: Calcium 9.2 mg/dl (8.4-10.2); Glucose 91 mg/dl (74-100)
== END 2024-06-14 10:35 | disposition home or self-care (01) ==
LOC: INF 10:14
PROVIDERS: PCP Family Medicine; Visit Provider Family Medicine
DX: D69.6 Thrombocytopenia, unspecified (principal)
CPT/HCPCS: 36415; 80053; 85025

== ENCOUNTER 2024-06-22 11:58 | Outpatient (CLI) | payer MEDICARE, BC, SELFPAY ==
[2024-06-22 12:03] VITALS: BMI 32.7
[2024-06-22 12:19] LABS: Microscopic, Urine URINE MICROSCOPIC (MICROSCOPIC)
[2024-06-22 12:25] LABS: Basophils % 0.5 % (0.1-2.0); Eosinophils # 0.2 K/mm3 (0.0-0.4); Eosinophils % 3.9 % (0.1-12.0); Hematocrit 27.4 % (42.0-52.0); Hemoglobin 8.4 g/dL (14.1-18.0); Lymphocytes # 1.2 K/mm3 (0.7-4.5); Lymphocytes % 24.3 % (10-50); Mean Corpuscular HGB Conc 30.7 g/dL (31.8-35.4); Mean Corpuscular Volume 87.8 fl (80-94); Mean Platelet Volume 10.8 fl (7.4-10.4); Monocytes # 0.6 K/mm3 (0.1-1.0); Monocytes % 12.3 % (1.7-9.3); Neutrophils % 59.1 % (37.0-80.0); Platelet Count 135 K/mm3 (142-424); Red Blood Count 3.12 M/mm3 (4.60-6.20); Red Cell Distribution Width 14.8 % (11.5-17.5); White Blood Count 5.1 K/mm3 (4.8-10.8)
[2024-06-22 12:34] LABS: Chloride 112 mmol/L (98-107)
[2024-06-22 12:35] LABS: Albumin Level 3.4 g/dl (3.5-5.0); Potassium 3.8 mmoL/L (3.5-5.1); Sodium 138 mmol/L (136-145)
[2024-06-22 12:36] LABS: Appearance,Urine CLEAR (Clear); Bilirubin,Urine Negative (Negative); Blood, Urine Negative (Negative); Color,Urine YELLOW (Yellow); Glucose,Urine (UA) Negative (Negative); Ketones,Urine Negative (Negative); Leukocyte Esterase,Urine Negative (Negative); Nitrate,Urine Negative (Negative); Protein,Urine Negative (Negative); Specific Gravity, Urine 1.015 (1.005-1.030); Urobilinogen,Urine 0.2 EU/dl (0.2)
[2024-06-22 12:37] LABS: Alanine Aminotransferase 22 U/L (12-78); Anion Gap 10.8 mEq/L (5-15); Aspartate Amino Transferase 30 U/L (17-59); Blood Urea Nitrogen 12 mg/dl (9-20); Carbon Dioxide 19 mmol/L (22.0-30.0); Creatinine Clearance Estimated 117 mL/min (50-200); Estimated Glomerular Filt Rate 85 ml/min (>60); GFR (African American) 102 ML/MIN (>60)
[2024-06-22 12:38] LABS: Albumin/Globulin Ratio 1.1 (1.1-1.8); Alkaline Phosphatase 72 U/L (38-126); Bilirubin,Total 1.3 mg/dl (0.2-1.3); Calcium 8.9 mg/dl (8.4-10.2); Glucose 105 mg/dl (74-100); Total Protein,Serum 6.4 g/dl (6.3-8.2)
[2024-06-22 12:45] LABS: Squamous Epithelial Cell,Urine Occasional #/hpf (0-5)
--- NOTE | 2024-06-22 13:19 | PC.NURSE ---
1210-COLLECTED LABS VIA VENIPUNCTURE STICK IN RIGHT AC WITH BUTTERFLY NEEDLE;PT TO WAIT ON RESULTS
== END 2024-06-22 13:18 | disposition home or self-care (01) ==
LOC: INF 12:00
PROVIDERS: PCP Family Medicine; Visit Provider Family Medicine
DX: D64.9 Anemia, unspecified (principal)
CPT/HCPCS: 36415; 80053; 81001; 85025

== ENCOUNTER 2024-06-23 10:12 | Outpatient (CLI) | payer MEDICARE, BC, SELFPAY ==
[2024-06-23 10:17] VITALS: BMI 29.7
--- NOTE | 2024-06-23 10:32 | PC.NURSE ---
1030 - BLOOD DRAWN FROM RIGHT HAND USING BUTTERFLY NEEDLE TO CHECK AMMONIA LEVEL PER DR BLANK.
[2024-06-23 10:56] LABS: Ammonia 40 umol/L (9-30)
== END 2024-06-23 10:35 | disposition home or self-care (01) ==
LOC: INF 10:13
PROVIDERS: PCP Family Medicine; Visit Provider Internal Medicine Medical Oncology
DX: I10 Essential (primary) hypertension (principal)
CPT/HCPCS: 36415; 82140

== ENCOUNTER 2024-06-30 08:20 | Outpatient (CLI) | payer MEDICARE, BC, SELFPAY ==
--- NOTE | 2024-06-30 08:29 | MR_ITS ---
FINAL REPORT CLINICAL HISTORY: CONFUSION X 2 TIMES 20 ML PROHANCE FINDINGS: Multiplanar MR imaging of the brain was performed without and with contrast. There is mild diffuse cortical atrophy. There is mild abnormal signal in the deep white matter bilaterally. There is no evidence of intracranial hemorrhage or mass. No abnormal extra-axial fluid collection is seen. The ventricular size is within normal limits. There is no evidence of shift of the midline structures. The posterior fossa and brainstem have an unremarkable appearance. No area of abnormal restricted diffusion is identified. No abnormal contrast enhancement is seen. Normal major vessel vascular flow voids are noted. IMPRESSION: No acute intracranial abnormality identified. Mild atrophy and mild changes of chronic microvascular ischemia. Reviewed, Interpreted and Dictated by Carloz Faulkner MD Transcribed by Nga Magallanes Authenticated and [facility]
[2024-06-30] MEDS: GADOTERIDOL INJ 20ML SYRINGE 20 ML IV (09:38)
[2024-06-30] MEDS: SODIUM CHLORIDE 0.9% 10ML SYR (RAD ONLY) 10 ML IV (09:38)
[2024-06-30 09:53] VITALS: BMI 29.7
--- NOTE | 2024-06-30 10:09 | PC.NURSE ---
1000-BLOOD DRAWN FROM IV IN LEFT AC FOR LABS PER DR CORTEZ.
[2024-06-30 10:18] LABS: Basophils % 0.4 % (0.1-2.0); Eosinophils # 0.3 K/mm3 (0.0-0.4); Eosinophils % 5.7 % (0.1-12.0); Hematocrit 28.9 % (42.0-52.0); Hemoglobin 8.8 g/dL (14.1-18.0); Lymphocytes % 20.9 % (10-50); Mean Corpuscular HGB Conc 30.2 g/dL (31.8-35.4); Mean Corpuscular Hemoglobin 26.6 pg (27.0-31.2); Mean Corpuscular Volume 87.9 fl (80-94); Mean Platelet Volume 9.2 fl (7.4-10.4); Monocytes # 0.5 K/mm3 (0.1-1.0); Monocytes % 10.2 % (1.7-9.3); Neutrophils # 2.9 K/mm3 (1.8-7.8); Neutrophils % 62.7 % (37.0-80.0); Platelet Count 149 K/mm3 (142-424); Red Blood Count 3.29 M/mm3 (4.60-6.20); Red Cell Distribution Width 15.2 % (11.5-17.5); White Blood Count 4.7 K/mm3 (4.8-10.8)
[2024-06-30 10:22] LABS: Albumin Level 3.2 g/dl (3.5-5.0); Chloride 115 mmol/L (98-107); Potassium 3.8 mmoL/L (3.5-5.1); Sodium 140 mmol/L (136-145)
[2024-06-30 10:24] LABS: Blood Urea Nitrogen 17 mg/dl (9-20); Creatinine Clearance Estimated 106 mL/min (50-200); Estimated Glomerular Filt Rate 75 ml/min (>60); GFR (African American) 91 ML/MIN (>60)
[2024-06-30 10:25] LABS: Alanine Aminotransferase 24 U/L (12-78); Albumin/Globulin Ratio 1.1 (1.1-1.8); Alkaline Phosphatase 76 U/L (38-126); Anion Gap 10.8 mEq/L (5-15); Aspartate Amino Transferase 36 U/L (17-59); Bilirubin,Total 1.3 mg/dl (0.2-1.3); Calcium 8.5 mg/dl (8.4-10.2); Carbon Dioxide 18 mmol/L (22.0-30.0); Glucose 96 mg/dl (74-100); Total Protein,Serum 6.2 g/dl (6.3-8.2)
[2024-06-30 10:30] LABS: Ammonia 36 umol/L (9-30)
[2024-06-30 11:35] LABS: Magnesium 1.5 mg/dl (1.6-2.3); Phosphorous 3.8 mg/dl (2.5-4.5)
[2024-07-01 10:14] LABS: Rapid Plasma Reagin Ab Titer Non Reactive titer (NonRea<1:1)
== END 2024-06-30 10:05 | disposition home or self-care (01) ==
LOC: RAD 08:21 → INF 10:10
PROVIDERS: PCP Family Medicine; Visit Provider Family Medicine
DX: R25.2 Cramp and spasm (principal)
CPT/HCPCS: 70553; 80053; 82140; 83735; 84100; 85025; 86593; A9576

== ENCOUNTER 2024-07-07 08:33 | Outpatient (CLI) | payer MEDICARE, BC, SELFPAY ==
[2024-07-07 08:36] VITALS: BMI 29.7
--- NOTE | 2024-07-07 08:45 | PC.NURSE ---
0845-collected labs via venipuncture stick in right ac with butterfly needle;pt d/c home
[2024-07-07 09:12] LABS: Basophils % 0.7 % (0.1-2.0); Eosinophils # 0.2 K/mm3 (0.0-0.4); Eosinophils % 4.4 % (0.1-12.0); Hematocrit 26.7 % (42.0-52.0); Hemoglobin 8.1 g/dL (14.1-18.0); Lymphocytes # 1.2 K/mm3 (0.7-4.5); Lymphocytes % 27.6 % (10-50); Mean Corpuscular HGB Conc 30.4 g/dL (31.8-35.4); Mean Corpuscular Hemoglobin 25.9 pg (27.0-31.2); Mean Corpuscular Volume 85.2 fl (80-94); Mean Platelet Volume 9.8 fl (7.4-10.4); Monocytes # 0.6 K/mm3 (0.1-1.0); Monocytes % 13.2 % (1.7-9.3); Neutrophils # 2.3 K/mm3 (1.8-7.8); Neutrophils % 54.2 % (37.0-80.0); Platelet Count 143 K/mm3 (142-424); Red Blood Count 3.13 M/mm3 (4.60-6.20); Red Cell Distribution Width 15.8 % (11.5-17.5); White Blood Count 4.2 K/mm3 (4.8-10.8)
== END 2024-07-07 08:49 | disposition home or self-care (01) ==
LOC: INF 08:34
PROVIDERS: PCP Family Medicine; Visit Provider Internal Medicine Medical Oncology
DX: D69.6 Thrombocytopenia, unspecified (principal)
CPT/HCPCS: 36415; 85025

== ENCOUNTER 2024-07-21 08:08 | Outpatient (CLI) | payer MEDICARE, BC, SELFPAY ==
[2024-07-21 08:16] VITALS: BMI 29.7
--- NOTE | 2024-07-21 08:30 | PC.NURSE ---
0830-collected labs via venipuncture stick in left forearm with butterfly needle;pt to d/c home.
[2024-07-21 08:52] LABS: Basophils % 0.5 % (0.1-2.0); Eosinophils # 0.3 K/mm3 (0.0-0.4); Eosinophils % 6.9 % (0.1-12.0); Hematocrit 26.2 % (42.0-52.0); Hemoglobin 8.1 g/dL (14.1-18.0); Lymphocytes % 24.2 % (10-50); Mean Corpuscular HGB Conc 30.7 g/dL (31.8-35.4); Mean Corpuscular Hemoglobin 25.5 pg (27.0-31.2); Mean Corpuscular Volume 83.1 fl (80-94); Mean Platelet Volume 9.6 fl (7.4-10.4); Monocytes # 0.4 K/mm3 (0.1-1.0); Monocytes % 10.4 % (1.7-9.3); Neutrophils # 2.3 K/mm3 (1.8-7.8); Neutrophils % 58.1 % (37.0-80.0); Platelet Count 118 K/mm3 (142-424); Red Blood Count 3.16 M/mm3 (4.60-6.20); Red Cell Distribution Width 15.6 % (11.5-17.5)
== END 2024-07-21 08:33 | disposition home or self-care (01) ==
LOC: INF 08:09
PROVIDERS: PCP Family Medicine; Visit Provider Internal Medicine Medical Oncology
DX: D64.9 Anemia, unspecified (principal)
CPT/HCPCS: 36415; 85025

== ENCOUNTER 2024-07-28 07:58 | Outpatient (CLI) | payer MEDICARE, BC, SELFPAY ==
[2024-07-28 08:09] VITALS: BMI 29.7
--- NOTE | 2024-07-28 08:15 | PC.NURSE ---
0815-collected labs via venipuncture stick in right ac with butterfly needle; pt to md appointment.
[2024-07-28 08:31] LABS: Basophils % 0.4 % (0.1-2.0); Eosinophils # 0.2 K/mm3 (0.0-0.4); Eosinophils % 4.4 % (0.1-12.0); Hematocrit 21.7 % (42.0-52.0); Lymphocytes # 1.1 K/mm3 (0.7-4.5); Lymphocytes % 23.3 % (10-50); Mean Corpuscular HGB Conc 30.5 g/dL (31.8-35.4); Mean Corpuscular Hemoglobin 25.1 pg (27.0-31.2); Mean Corpuscular Volume 82.4 fl (80-94); Mean Platelet Volume 9.6 fl (7.4-10.4); Monocytes # 0.5 K/mm3 (0.1-1.0); Monocytes % 10.2 % (1.7-9.3); Neutrophils % 61.8 % (37.0-80.0); Platelet Count 130 K/mm3 (142-424); Red Blood Count 2.63 M/mm3 (4.60-6.20); Red Cell Distribution Width 15.8 % (11.5-17.5); White Blood Count 4.9 K/mm3 (4.8-10.8)
[2024-07-28 08:32] LABS: Hemoglobin 6.6 g/dL (14.1-18.0)
[2024-07-28 08:33] LABS: Chloride 110 mmol/L (98-107)
[2024-07-28 08:34] LABS: Sodium 137 mmol/L (136-145)
[2024-07-28 08:36] LABS: Blood Urea Nitrogen 18 mg/dl (9-20); Creatinine Clearance Estimated 89 mL/min (50-200); Estimated Glomerular Filt Rate 61 ml/min (>60); GFR (African American) 74 ML/MIN (>60)
[2024-07-28 08:37] LABS: Alanine Aminotransferase 16 U/L (12-78); Albumin/Globulin Ratio 1.1 (1.1-1.8); Alkaline Phosphatase 71 U/L (38-126); Aspartate Amino Transferase 26 U/L (17-59); Bilirubin,Total 0.9 mg/dl (0.2-1.3); Calcium 9.2 mg/dl (8.4-10.2); Carbon Dioxide 22 mmol/L (22.0-30.0); Globulin 2.7 g/dL (1.3-3.2); Glucose 87 mg/dl (74-100); Total Protein,Serum 5.7 g/dl (6.3-8.2)
--- NOTE | 2024-07-28 09:45 | PC.NURSE ---
0945-pt returned for additional blood work; megan méndez,lockstitch binder here to collect labs and type and screen for 2 units prbcs to be given 07/29/24.
[2024-07-28 10:12] LABS: Iron 54 ug/dL (49-181)
[2024-07-28 10:21] LABS: Total Iron Binding Capacity 382 ug/dL (261-462)
[2024-07-28 10:49] LABS: Ferritin 9.71 ng/ml (17.9-464)
== END 2024-07-28 09:50 | disposition home or self-care (01) ==
LOC: INF 08:01
PROVIDERS: PCP Family Medicine; Visit Provider Internal Medicine Medical Oncology
DX: D69.6 Thrombocytopenia, unspecified (principal); D64.9 Anemia, unspecified
CPT/HCPCS: 36415; 80053; 82728; 83540; 83550; 85025; 86850

== ENCOUNTER 2024-07-29 07:38 | Outpatient (CLI) | payer MEDICARE, BC, SELFPAY ==
[2024-07-29] VITALS (18 sets, daily range): BP systolic 102–136; BP diastolic 42–68; PULSE 42–96; RESP 18–19; TEMP 36.2–36.6; O2SAT 100
[2024-07-29] MEDS: ACETAMINOPHEN 325MG TAB 650 MG (09:05)
[2024-07-29] MEDS: FUROSEMIDE 20 MG/2 ML VIAL (10:48)
== END 2024-07-29 14:15 | disposition home or self-care (01) ==
LOC: INF 07:40
PROVIDERS: PCP Family Medicine; Visit Provider Internal Medicine Medical Oncology
DX: D69.3 Immune thrombocytopenic purpura (principal)
CPT/HCPCS: 36430; P9016

== ENCOUNTER 2024-08-04 08:47 | Outpatient (CLI) | payer MEDICARE, BC, SELFPAY ==
[2024-08-04 08:51] VITALS: BMI 31.9
[2024-08-04 09:15] VITALS: BP 113/61; PULSE 68; RESP 18; O2SAT 100
[2024-08-04] MEDS: SODIUM CHLORIDE 0.9% 50ML BAG 50 ML IV (09:15)
[2024-08-04] MEDS: IRON SUCROSE COMPLEX 200 MG in 0.9 % SODIUM CHLORIDE 100 ML 220 MG IV (09:15)
[2024-08-04 09:38] LABS: Basophils % 0.4 % (0.1-2.0); Eosinophils # 0.2 K/mm3 (0.0-0.4); Hemoglobin 7.2 g/dL (14.1-18.0); Lymphocytes % 25.4 % (10-50); Mean Corpuscular HGB Conc 29.8 g/dL (31.8-35.4); Mean Corpuscular Hemoglobin 25.5 pg (27.0-31.2); Mean Corpuscular Volume 85.5 fl (80-94); Mean Platelet Volume 7.9 fl (7.4-10.4); Monocytes # 0.4 K/mm3 (0.1-1.0); Monocytes % 10.1 % (1.7-9.3); Neutrophils # 2.2 K/mm3 (1.8-7.8); Neutrophils % 58.1 % (37.0-80.0); Platelet Count 93 K/mm3 (142-424); Red Blood Count 2.81 M/mm3 (4.60-6.20); Red Cell Distribution Width 16.8 % (11.5-17.5); White Blood Count 3.9 K/mm3 (4.8-10.8)
--- NOTE | 2024-08-04 10:18 | PC.NURSE ---
1018-collected type and cross via venipuncture stick in right ac with duarte inside sales specialist as witness; pt to return 08/05/24 for blood transfusion.
[2024-08-04 10:20] VITALS: BP 109/52; PULSE 70; RESP 18; O2SAT 100
== END 2024-08-04 10:20 | disposition home or self-care (01) ==
LOC: INF 08:47
PROVIDERS: PCP Family Medicine; Visit Provider Internal Medicine Medical Oncology
DX: D69.6 Thrombocytopenia, unspecified (principal)
CPT/HCPCS: 36415; 85025; 86850; 96365; J1756

== ENCOUNTER 2024-08-05 08:10 | Outpatient (CLI) | payer MEDICARE, BC, SELFPAY ==
[2024-08-05] VITALS (19 sets, daily range): BP systolic 82–132; BP diastolic 49–67; PULSE 64–78; RESP 18–19; TEMP 36.2–36.6; O2SAT 100
[2024-08-05] MEDS: SODIUM CHLORIDE 0.9% 250ML BAG 250 ML IV (09:00)
== END 2024-08-05 14:04 | disposition home or self-care (01) ==
LOC: INF 08:11
PROVIDERS: PCP Family Medicine; Visit Provider Internal Medicine Medical Oncology
DX: D69.3 Immune thrombocytopenic purpura (principal)
CPT/HCPCS: 36430; P9016

== ENCOUNTER 2024-08-12 07:37 | Outpatient (CLI) | payer MEDICARE, BC, SELFPAY ==
[2024-08-12 08:14] VITALS: BMI 29.6
[2024-08-12] MEDS: IRON SUCROSE COMPLEX 200 MG in 0.9 % SODIUM CHLORIDE 100 ML 220 MG IV (08:35)
[2024-08-12 08:53] LABS: Basophils % 0.8 % (0.1-2.0); Eosinophils # 0.3 K/mm3 (0.0-0.4); Eosinophils % 6.4 % (0.1-12.0); Hematocrit 29.5 % (42.0-52.0); Hemoglobin 9.7 g/dL (14.1-18.0); Lymphocytes # 1.1 K/mm3 (0.7-4.5); Lymphocytes % 24.7 % (10-50); Mean Corpuscular HGB Conc 32.8 g/dL (31.8-35.4); Mean Corpuscular Hemoglobin 27.3 pg (27.0-31.2); Mean Corpuscular Volume 83.5 fl (80-94); Mean Platelet Volume 9.7 fl (7.4-10.4); Monocytes # 0.5 K/mm3 (0.1-1.0); Monocytes % 10.9 % (1.7-9.3); Neutrophils # 2.5 K/mm3 (1.8-7.8); Neutrophils % 57.1 % (37.0-80.0); Platelet Count 112 K/mm3 (142-424); Red Blood Count 3.54 M/mm3 (4.60-6.20); Red Cell Distribution Width 18.6 % (11.5-17.5); White Blood Count 4.5 K/mm3 (4.8-10.8)
[2024-08-12 09:02] LABS: Albumin Level 3.1 g/dl (3.5-5.0); Chloride 106 mmol/L (98-107); Potassium 4.2 mmoL/L (3.5-5.1); Sodium 133 mmol/L (136-145)
[2024-08-12 09:05] LABS: Alanine Aminotransferase 14 U/L (12-78); Albumin/Globulin Ratio 1.1 (1.1-1.8); Alkaline Phosphatase 71 U/L (38-126); Anion Gap 9.2 mEq/L (5-15); Aspartate Amino Transferase 27 U/L (17-59); Blood Urea Nitrogen 9 mg/dl (9-20); Carbon Dioxide 22 mmol/L (22.0-30.0); Creatinine Clearance Estimated 109 mL/min (50-200); Estimated Glomerular Filt Rate 85 ml/min (>60); GFR (African American) 102 ML/MIN (>60); Globulin 2.9 g/dL (1.3-3.2); Glucose 96 mg/dl (74-100)
[2024-08-12 09:07] LABS: INR 1.26 (0.9-1.1); Prothrombin Time 13.8 seconds (10.1-12.5)
[2024-08-12 09:30] VITALS: BP 113/63; BP 136/69; PULSE 51; PULSE 79; RESP 18; RESP 19; O2SAT 100
[2024-08-12] MEDS: SODIUM CHLORIDE 0.9% 50ML BAG 50 ML IV (15:20)
[2024-08-13 08:51] LABS: AFP, Tumor Marker 4.6 ng/mL (0.0-8.4); Hep A Ab, Total Positive (Negative)
[2024-08-14 18:01] LABS: Miscellaneous Test NON REACTIVE
== END 2024-08-12 09:30 | disposition home or self-care (01) ==
LOC: INF 07:38
PROVIDERS: Internal Medicine; PCP Family Medicine; Visit Provider Internal Medicine Medical Oncology
DX: K74.60 Unspecified cirrhosis of liver (principal)
CPT/HCPCS: 36415; 80053; 82105; 85025; 85610; 86708; 96365; J1756

== ENCOUNTER 2024-08-16 09:28 | Outpatient (CLI) | payer MEDICARE, SELFPAY | END 2024-08-16 23:59 | disposition home or self-care (01) | LOC: LAB.DROPOF 08-19 09:29 | PROVIDERS: PCP Family Medicine; Visit Provider Internal Medicine Medical Oncology | DX: B99.9 Unspecified infectious disease (principal) | CPT/HCPCS: 87070; 87077; 87186; 87205 ==

== ENCOUNTER 2024-08-18 08:52 | Outpatient (CLI) | payer MEDICARE, BC, SELFPAY ==
[2024-08-18 08:55] VITALS: BP 137/68; PULSE 81; RESP 16; O2SAT 100
[2024-08-18] MEDS: SODIUM CHLORIDE 0.9% 50ML BAG 50 ML IV (09:21)
[2024-08-18] MEDS: IRON SUCROSE COMPLEX 200 MG in 0.9 % SODIUM CHLORIDE 100 ML 220 MG IV (09:22)
[2024-08-18 09:47] VITALS: BMI 29.1
[2024-08-18 09:52] VITALS: BP 132/66; PULSE 77; RESP 16; O2SAT 100
[2024-08-18 09:56] LABS: Basophils % 0.9 % (0.1-2.0); Eosinophils # 0.3 K/mm3 (0.0-0.4); Eosinophils % 5.5 % (0.1-12.0); Hematocrit 30.3 % (42.0-52.0); Lymphocytes % 21.6 % (10-50); Mean Corpuscular Hemoglobin 27.9 pg (27.0-31.2); Mean Corpuscular Volume 84.6 fl (80-94); Mean Platelet Volume 8.1 fl (7.4-10.4); Monocytes # 0.4 K/mm3 (0.1-1.0); Monocytes % 9.2 % (1.7-9.3); Neutrophils # 2.8 K/mm3 (1.8-7.8); Neutrophils % 62.7 % (37.0-80.0); Platelet Count 141 K/mm3 (142-424); Red Blood Count 3.58 M/mm3 (4.60-6.20); Red Cell Distribution Width 19.1 % (11.5-17.5); White Blood Count 4.5 K/mm3 (4.8-10.8)
[2024-08-18 09:57] LABS: Albumin Level 3.2 g/dl (3.5-5.0); Chloride 108 mmol/L (98-107); Sodium 135 mmol/L (136-145)
[2024-08-18 10:00] LABS: Alanine Aminotransferase 19 U/L (12-78); Alkaline Phosphatase 68 U/L (38-126); Aspartate Amino Transferase 30 U/L (17-59); Bilirubin,Total 1.5 mg/dl (0.2-1.3); Blood Urea Nitrogen 9 mg/dl (9-20); Carbon Dioxide 22 mmol/L (22.0-30.0); Creatinine Clearance Estimated 107 mL/min (50-200); Estimated Glomerular Filt Rate 97 ml/min (>60); GFR (African American) 117 ML/MIN (>60); Globulin 2.9 g/dL (1.3-3.2); Total Protein,Serum 6.1 g/dl (6.3-8.2)
[2024-08-18 10:01] LABS: Albumin/Globulin Ratio 1.1 (1.1-1.8); Calcium 8.9 mg/dl (8.4-10.2); Glucose 102 mg/dl (74-100)
== END 2024-08-18 09:53 | disposition home or self-care (01) ==
LOC: INF 08:54
PROVIDERS: PCP Family Medicine; Visit Provider Internal Medicine Medical Oncology
DX: D64.9 Anemia, unspecified (principal)
CPT/HCPCS: 80053; 85025; 96365; J1756

== ENCOUNTER 2024-08-25 07:44 | Outpatient (CLI) | payer MEDICARE, BC, SELFPAY ==
[2024-08-25 08:40] VITALS: BP 146/70; PULSE 78; RESP 18; O2SAT 98
[2024-08-25] MEDS: SODIUM CHLORIDE 0.9% 50ML BAG 50 ML IV (08:40)
[2024-08-25] MEDS: IRON SUCROSE COMPLEX 200 MG in 0.9 % SODIUM CHLORIDE 100 ML 220 MG IV (08:40)
[2024-08-25 09:15] VITALS: BP 157/86; PULSE 79; RESP 18; O2SAT 97
== END 2024-08-25 09:15 | disposition home or self-care (01) ==
PROVIDERS: PCP Family Medicine; Visit Provider Internal Medicine Medical Oncology
DX: D64.9 Anemia, unspecified (principal)
CPT/HCPCS: 96365; J1756

== ENCOUNTER 2024-09-01 07:52 | Outpatient (CLI) | payer MEDICARE, BC, SELFPAY ==
[2024-09-01 08:16] VITALS: BMI 31.9
[2024-09-01 08:28] VITALS: BP 133/69; PULSE 80; RESP 18; O2SAT 100
[2024-09-01] MEDS: IRON SUCROSE COMPLEX 200 MG in 0.9 % SODIUM CHLORIDE 100 ML 220 MG IV (08:28)
[2024-09-01 08:46] LABS: Basophils % 0.6 % (0.1-2.0); Eosinophils # 0.2 K/mm3 (0.0-0.4); Eosinophils % 5.2 % (0.1-12.0); Hematocrit 31.7 % (42.0-52.0); Hemoglobin 10.6 g/dL (14.1-18.0); Lymphocytes # 0.9 K/mm3 (0.7-4.5); Lymphocytes % 23.1 % (10-50); Mean Corpuscular HGB Conc 33.3 g/dL (31.8-35.4); Mean Corpuscular Hemoglobin 28.5 pg (27.0-31.2); Mean Corpuscular Volume 85.5 fl (80-94); Mean Platelet Volume 8.6 fl (7.4-10.4); Monocytes # 0.5 K/mm3 (0.1-1.0); Monocytes % 11.1 % (1.7-9.3); Neutrophils # 2.4 K/mm3 (1.8-7.8); Neutrophils % 60.1 % (37.0-80.0); Platelet Count 103 K/mm3 (142-424); Red Blood Count 3.71 M/mm3 (4.60-6.20); White Blood Count 4.1 K/mm3 (4.8-10.8)
[2024-09-01 09:10] VITALS: BP 130/72; PULSE 87; RESP 18; O2SAT 100
[2024-09-01] MEDS: SODIUM CHLORIDE 0.9% 50ML BAG 50 ML IV (09:51)
== END 2024-09-01 09:10 | disposition home or self-care (01) ==
LOC: INF 07:53
PROVIDERS: PCP Family Medicine; Visit Provider Internal Medicine Medical Oncology
DX: D64.9 Anemia, unspecified (principal)
CPT/HCPCS: 85025; 96365; J1756

== ENCOUNTER 2024-09-15 07:49 | Outpatient (CLI) | payer MEDICARE, BC, SELFPAY ==
--- NOTE | 2024-09-15 08:20 | PC.NURSE ---
0820-collected labs via venipuncture stick in right ac with butterfly needle. will call pt with results
[2024-09-15 08:21] VITALS: BMI 28.9
[2024-09-15 08:35] LABS: Basophils % 0.7 % (0.1-2.0); Eosinophils # 0.2 K/mm3 (0.0-0.4); Eosinophils % 4.3 % (0.1-12.0); Hematocrit 34.9 % (42.0-52.0); Hemoglobin 11.1 g/dL (14.1-18.0); Lymphocytes # 1.2 K/mm3 (0.7-4.5); Lymphocytes % 25.7 % (10-50); Mean Corpuscular HGB Conc 31.9 g/dL (31.8-35.4); Mean Corpuscular Volume 87.7 fl (80-94); Mean Platelet Volume 9.3 fl (7.4-10.4); Monocytes # 0.5 K/mm3 (0.1-1.0); Monocytes % 10.6 % (1.7-9.3); Neutrophils # 2.8 K/mm3 (1.8-7.8); Neutrophils % 58.7 % (37.0-80.0); Platelet Count 94 K/mm3 (142-424); Red Blood Count 3.98 M/mm3 (4.60-6.20); Red Cell Distribution Width 18.2 % (11.5-17.5); White Blood Count 4.8 K/mm3 (4.8-10.8)
== END 2024-09-15 08:20 | disposition home or self-care (01) ==
LOC: INF 07:51
PROVIDERS: PCP Family Medicine; Visit Provider Internal Medicine Medical Oncology
DX: D64.9 Anemia, unspecified (principal)
CPT/HCPCS: 36415; 85025

== ENCOUNTER 2024-09-15 08:00 | Outpatient (RCR) | payer BC, MEDICARE, SELFPAY ==
--- NOTE | 2024-03-30 12:02 | HMH.PTOPWND ---
Rehab Outpt Wound Evaluation Rehab OP Wound Evaluation Start: 03/30/24 09:45 Freq: Status: Active Protocol: Document 03/30/24 11:39 PHORNE (Rec: 03/30/24 12:02 PHORNE Laptop) E-signed By Garret Msa PT Subjective/History History History This is the initial wound care eval for Solo Ambrose, 63 yowm who presents with R lower leg wounds x ~ 2 mos with insidious onset of symptoms. He reports he had a DVT in his R LE ~ 3 mos ago and has suffered from increased edema since that time. He also had a recent heart cath with one stent placed, which he says has significantly helped reduce his overall edema in both legs. He reports considerable pain during the day, but less pain at night with his legs propped. He has PMH of CAD, PAF, DM, HTN, pleural effusion, mitral valve regurgitation, thrombocytopenia, DVT R LE, cirrhosis. Subjective Subjective Current pain is 8/10 in the R lower leg, at worst 10/10. 2/4 TTP in the R lower leg. 2+ pitting edema throughout the R Lower leg. Increased radha- wound erythema noted. New diagnosis of cancer in past 12 No months? Suazo-Rdoriguez Wound Assessment Tool Assessment Wound size 4=Length x Width 36.1--<80 sq cm Wound depth 4=Obscured by necrosis Wound edges 3=Well-defined, not attached to wound base Wound undermining 1=None present Necrotic tissue type 5=Firmly adherent, hard, black eschar Necrotic tissue amount 4=>50% and <75% of wound covered Exudate type 3=Serosanguineous: thin, watery, pale red/pink Exudate amount 3=Small Skin color surrounding wound 2=Bright red &/or blanches to touch Peripheral tissue edema 5=Crepitus and/or pitting edema extends > or = 4 cm around wound Peripheral tissue induration 3=Induration 2-4 cm extending < 50% around wound Granulation tissue 4=[place], &/or dull, dusky red & /or fills < or = 25% of wound Epithelialization 5= < 25% wound covered Wound assessment total score 46 Wound Problems/Impairments Impairments Problems/Impairmments Palpation Tenderness,Impaired Endurance,Impaired Transfers, Impaired Gait Pattern,Impaired Walking,Impaired Standing, Impaired Sitting,Impaired Shower/Bathing,Impaired Household Care,Impaired Work Activities,Increased Edema, Lymphedema Present,Wound Care Needs,Subjective C/O Pain, Impaired Self Care/Self Management Prognosis Rehab Potential Good Comment Skilled therapy services are indicated to aid reduction of R LE edema, improve healing of R LE wounds, and improve pts return to prior level of function. Clinical Impression Consistent with Diagnosis Yes Short Term Goals Number of Weeks 2 Decreased Palpation Tenderness Yes: 11/05 R LE Decrease Edema Yes: 1+ pitting edema R LE Decrease Wound Area Yes: by 25% Decrease Subjective C/O Pain Yes: 04/11 R LE Patient to Understand Lymphedema Yes Treatment and Exercises Dump Worker Goals Number of Weeks 4 Decreased Palpation Tenderness Yes: 0 R LE Improve Ability For Household Care Yes Decrease Edema Yes: no pitting edema noted Decrease Wound Area Yes: by 75% Decrease Subjective C/O Pain Yes: 02/09 R LE Patient to Adhere Lymphedema Precautions Yes Outpatient Therapy Plan of Care Treatment Plan May Include Therapeutic Exercise Including Home Yes Exercise Program Manual Therapy Techniques Yes Neuromuscular Re-education Yes Therapeutic Activities to Return to Yes Previous Functional/Work Level ADL/Self Care Education Yes Orthotics/Bracing/Splinting Yes Manual Lymphatic Drainage Yes Wound Care Yes Eval/Re-Eval Yes Frequency Times per week 2 Duration Number of Weeks 4 Addendums This patient is a candidate for social No or vocational rehab? Patient/Guardian verbally acknowledges Yes understanding of treatment program and consents to further treatment? Patient/Guardian verbally acknowledges Yes understanding of diagnosis, prognosis and goals for treatment? Eval Complexity PT Charges 64520 - High Complexity PHYSICIAN CERTIFICATION: I certify the specified therapy services for Solo Ambrose are required, authorized, and reviewed every 30 days.
--- NOTE | 2024-04-27 10:18 | HMH.RHREAS ---
Rehab Reassessment Rehab OP Re-assessment Start: 03/30/24 09:45 Freq: Status: Active Protocol: Document 04/27/24 10:05 PHILLIP (Rec: 04/27/24 10:18 PHORNE [id number]) E-signed By Garret Mas, PT [place] Wound Assessment Tool Assessment Wound size 2=Length x Width 4--<16 sq cm Wound depth 4=Obscured by necrosis Wound edges 3=Well-defined, not attached to wound base Wound undermining 1=None present Necrotic tissue type 3=Loosely adherent yellow slough Necrotic tissue amount 5=75% to 100% of wound covered Exudate type 3=Serosanguineous: thin, watery, pale red/pink Exudate amount 4=Moderate Skin color surrounding wound 2=Bright red &/or blanches to touch Peripheral tissue edema 5=Crepitus and/or pitting edema extends > or = 4 cm around wound Peripheral tissue induration 3=Induration 2-4 cm extending < 50% around wound Granulation tissue 4=[place], &/or dull, dusky red & /or fills < or = 25% of wound Epithelialization 5= < 25% wound covered Wound assessment total score 44 Rehab Re-assessment Subjective Subjective Pt continues to reports significant pain throughout the R lower leg, worse at night and with elevation of the R LE. It just feels like somebody has branding iron on my leg and it whittaker like fire. Objective Objective Notes R LE wounds: Posterior R calf: L= 2.4 cm, W = 4.0 cm, D= 0.1 cm Lateral R hahn: L= 4.0 cm, W= 2.6 cm, D= 0.1 cm Anterior Superior R hahn: L= 2 .7 cm, W= 1.6 cm, D= 0.2 cm Anterior Inferior R hahn: L= 2 .0 cm, W= 2.0 cm, D= 0.2 cm Anterior wounds with 100% yellow slough throughout the wound bed, No hard eschar noted at this time. Pain remains 8-9/10 at worst in the R lower leg. Recent R LE arterial duplex shows good blood flow in prominent vessels, but monophasic flow in the infrapopliteal vessels. Assessment Progress Assessment Progressing as Expected Assessment Notes Pt has shown improvements in R LE wounds with less necrotic tissue overall and no hard eschar noted. He continues to have significant pain and increased edema moving into the L LE as well as the R. Skilled therapy services remain necessary to reduce overall wound size, prevent further infection if possible, decrease edema, and aid pt return to prior level of function. Patient goals met ST/5 LT/[address] LT6 Plan Plan Continue per initial POC. May consider referral to vascular surgery if warranted and pain persists. Frequency of Therapy 2 x/wk Duration of therapy 4-6 wks Time and Billing Re-Eval Time 10 Re-Eval Billing Units 1 PHYSICIAN CERTIFICATION: I certify the specified therapy services for Solo Ambrose are required, authorized, and reviewed every 30 days.
--- NOTE | 2024-05-25 11:44 | HMH.RHREAS ---
Rehab Reassessment Rehab OP Re-assessment Start: 03/30/24 09:45 Freq: Status: Active Protocol: Document 05/25/24 11:36 PHOMIRLANDE (Rec: 05/25/24 11:44 PHORNE [id number]) E-signed By Garret Mas, PT [place] Wound Assessment Tool Assessment Wound size 3= Length x Width 16.1--<36 sq cm Wound depth 3=Full thickness skin loss involving damage or necrosis of Wound edges 3=Well-defined, not attached to wound base Wound undermining 1=None present Necrotic tissue type 3=Loosely adherent yellow slough Necrotic tissue amount 4=>50% and <75% of wound covered Exudate type 3=Serosanguineous: thin, watery, pale red/pink Exudate amount 4=Moderate Skin color surrounding wound 2=Bright red &/or blanches to touch Peripheral tissue edema 5=Crepitus and/or pitting edema extends > or = 4 cm around wound Peripheral tissue induration 3=Induration 2-4 cm extending < 50% around wound Granulation tissue 4=[place], &/or dull, dusky red & /or fills < or = 25% of wound Epithelialization 5= < 25% wound covered Wound assessment total score 43 Rehab Re-assessment Subjective Subjective Pt reports significant reduction in R LE pain at this time. I feel a whole lot better than I did, I can get some sleep now and I couldn't do that even a few weeks ago. Objective Objective Notes R LE wounds: Posterior R calf: L= 3.2 cm, W = 5.0 cm, D= 0.1 cm Lateral R hahn: L= 6.0 cm, W= 4.2 cm, D= 0.1 cm Anterior Superior R hahn: L= 2 .6 cm, W= 1.7 cm, D= 0.1 cm Anterior wounds with 70% yellow slough throughout the wound bed, 30% granulation tissue. No hard eschar noted at this time. Pain 3/10 at worst in the R lower leg. Assessment Progress Assessment Progressing as Expected Assessment Notes Pt has shown some increase in R LE wound overall area, but significant reduction in necrotic tissue throughout the wound beds. Much improved pain and edema in the R LE, as well. He continues to need skilled intervention to reduce overall wound size and necrotic tissue amounts to return to prior level of function and good quality of life. Patient goals met ST/5 LT/6 Plan Plan Continue per initial POC. May consider referral to vascular surgery if warranted and pain persists. Frequency of Therapy 2 x/wk Duration of therapy 4-6 wks Time and Billing Re-Eval Time 11 Re-Eval Billing Units 1 PHYSICIAN CERTIFICATION: I certify the specified therapy services for Solo Ambrose are required, authorized, and reviewed every 30 days.
--- NOTE | 2024-06-20 10:07 | HMH.RHREAS ---
Rehab Reassessment Rehab OP Re-assessment Start: 03/30/24 09:45 Freq: Status: Active Protocol: Document 06/20/24 09:57 STEPHENEdwardESTRELLITA (Rec: 06/20/24 10:07 PHORNE [id number]) E-signed By Garret Mas, PT [place] Wound Assessment Tool Assessment Wound size 3= Length x Width 16.1--<36 sq cm Wound depth 3=Full thickness skin loss involving damage or necrosis of Wound edges 3=Well-defined, not attached to wound base Wound undermining 1=None present Necrotic tissue type 3=Loosely adherent yellow slough Necrotic tissue amount 4=>50% and <75% of wound covered Exudate type 3=Serosanguineous: thin, watery, pale red/pink Exudate amount 4=Moderate Skin color surrounding wound 2=Bright red &/or blanches to touch Peripheral tissue edema 5=Crepitus and/or pitting edema extends > or = 4 cm around wound Peripheral tissue induration 2=Induration,<2 cm around wound Granulation tissue 3=Bright, beefy red; <75% & > 25% of wound filled Epithelialization 5= < 25% wound covered Wound assessment total score 41 Rehab Re-assessment Subjective Subjective Pt reports he continues to have much less pain overall in the R LE. Improved mobility steadily, but difficulty with ADLs due to edema and wounds. Objective Objective Notes R LE wounds: Posterior R calf: L= 3.0 cm, W = 4.0 cm, D= 0.1 cm Lateral R hahn: L= 3.5 cm, W= 3.3 cm, D= 0.1 cm Anterior Superior R hahn: L= 0 .8 cm, W= 0.7 cm, D= 0.1 cm Anterior wounds with 25% yellow slough throughout the wound bed, 75% granulation tissue. No hard eschar noted at this time. Pain 3/10 at worst in the R lower leg. Assessment Progress Assessment Progressing as Expected Assessment Notes Significant reduction in overall necrotic tissue at this time. Much improved pain and edema in the R LE, as well . He continues to need skilled intervention to reduce overall wound size and necrotic tissue amounts to return to prior level of function and good quality of life. Patient goals met ST/5 LT/6 Plan Plan Continue per initial POC. May consider referral to vascular surgery if warranted and pain persists. Frequency of Therapy 2 x/wk Duration of therapy 4-6 wks Time and Billing Re-Eval Time 10 Re-Eval Billing Units 1 PHYSICIAN CERTIFICATION: I certify the specified therapy services for Solo Ambrose are required, authorized, and reviewed every 30 days.
--- NOTE | 2024-07-21 10:32 | HMH.RHREAS ---
Rehab Reassessment Rehab OP Re-assessment Start: 03/30/24 09:45 Freq: Status: Active Protocol: Document 07/21/24 10:27 PHOMIRLANDE (Rec: 07/21/24 10:32 PHORNE [id number]) E-signed By Garret Mas, PT [place] Wound Assessment Tool Assessment Wound size 2=Length x Width 4--<16 sq cm Wound depth 3=Full thickness skin loss involving damage or necrosis of Wound edges 3=Well-defined, not attached to wound base Wound undermining 1=None present Necrotic tissue type 3=Loosely adherent yellow slough Necrotic tissue amount 2=<25% of wound bed covered Exudate type 3=Serosanguineous: thin, watery, pale red/pink Exudate amount 4=Moderate Skin color surrounding wound 2=Bright red &/or blanches to touch Peripheral tissue edema 4=Pitting edema extends <4 cm around wound Peripheral tissue induration 1=None present Granulation tissue 2=Bright, beefy red;75% to 100 % of wound filled &/or tissue overgrowth Epithelialization 3=50% to <75% wound covered &/ or epithelial tissue extends to < 0.5cm Wound assessment total score 33 Rehab Re-assessment Subjective Subjective Pt reports no pain in R LE at rest or with activity. He does continue to have mild tenderness to palpation in the radha-wound skin. Objective Objective Notes R LE wounds: Posterior R calf: L= 1.8 cm, W= 2.0 cm, D= 0.1 cm Lateral R hahn: L= 1.6 cm, W= 1.0 cm, D= 0.1 cm Posterior wound with 10% yellow slough throughout the wound bed, 90% granulation tissue. No hard eschar noted at this time. Pain 0/10 at worst in the R lower leg. Assessment Progress Assessment Progressing as Expected Assessment Notes Significant reduction in overall necrotic tissue at this time. Much improved pain and edema in the R LE, as well . No longer requires enzymatic debridement medication. He continues to need skilled intervention to reduce overall wound size and necrotic tissue amounts to return to prior level of function and good quality of life. Patient goals met ST LT/ Plan Plan Continue per initial POC. May consider referral to vascular surgery if warranted and pain persists. Frequency of Therapy 2 x/wk Duration of therapy 4-6 wks Time and Billing Re-Eval Time 11 Re-Eval Billing Units 1 PHYSICIAN CERTIFICATION: I certify the specified therapy services for Solo Ambrose are required, authorized, and reviewed every 30 days.
--- NOTE | 2024-08-18 13:55 | HMH.RHREAS ---
Rehab Reassessment Rehab OP Re-assessment Start: 03/30/24 09:45 Freq: Status: Active Protocol: Document 08/18/24 13:49 PHOMIRLANDE (Rec: 08/18/24 13:55 PHORNE [id number]) E-signed By Garret Mas, PT [place] Wound Assessment Tool Assessment Wound size 2=Length x Width 4--<16 sq cm Wound depth 3=Full thickness skin loss involving damage or necrosis of Wound edges 3=Well-defined, not attached to wound base Wound undermining 1=None present Necrotic tissue type 3=Loosely adherent yellow slough Necrotic tissue amount 2=<25% of wound bed covered Exudate type 3=Serosanguineous: thin, watery, pale red/pink Exudate amount 4=Moderate Skin color surrounding wound 2=Bright red &/or blanches to touch Peripheral tissue edema 4=Pitting edema extends <4 cm around wound Peripheral tissue induration 1=None present Granulation tissue 2=Bright, beefy red;75% to 100 % of wound filled &/or tissue overgrowth Epithelialization 3=50% to <75% wound covered &/ or epithelial tissue extends to < 0.5cm Wound assessment total score 33 Rehab Re-assessment Subjective Subjective Pt reports he has recently been having more sensations of pain and tenderness with redness and warmth in the R LE increased as well. He also reports mildly increased drainage from his wounds and increased swelling. Objective Objective Notes R LE wounds: Posterior R calf: L= 1.0 cm, W= 1.0 cm, D= 0.1 cm Lateral R hahn: L= 2.3 cm, W= 1.8 cm, D= 0.1 cm Posterior wound with 5% yellow slough throughout the wound bed, 95% granulation tissue. No hard eschar noted at this time. Pain 2/10 at worst in the R lower leg. Assessment Progress Assessment Progressing as Expected Assessment Notes Pt has continued to show overall reduction of R LE edema and wound surface area, however he has shown slightly ore pain over the past week. He continues to need skilled therapy services to improve wound healing, reduce overall edema burden, and return to PLOF. Patient goals met ST/5 LT/6 Plan Plan Continue per initial POC. May consider referral to vascular surgery if warranted and pain persists. Frequency of Therapy 2 x/wk Duration of therapy 4-6 wks Time and Billing Re-Eval Time 10 Re-Eval Billing Units 0 PHYSICIAN CERTIFICATION: I certify the specified therapy services for Solo Ambrose are required, authorized, and reviewed every 30 days.
== END 2024-09-15 23:59 | disposition home or self-care (01) ==
LOC: PT 08:00
PROVIDERS: Visit Provider Internal Medicine Medical Oncology
DX: M79.604 Pain in right leg (principal); L97.919 Non-pressure chronic ulcer of unspecified part of right lower leg with unspecified severity
CPT/HCPCS: 29580; 87070; 87077; 87186; 87205; 97140; 97163; 97164; 97597; 97598

== ENCOUNTER 2024-09-26 07:58 | Outpatient (CLI) | payer MEDICARE, BC, SELFPAY ==
[2024-09-26 08:09] VITALS: BMI 28.8
--- NOTE | 2024-09-26 08:20 | PC.NURSE ---
0820 CBC collected via venipuncture to L AC with butterfly needle x1 stick. Patient here for labs only.
[2024-09-26 08:23] LABS: Basophils % 0.5 % (0.1-2.0); Eosinophils # 0.2 K/mm3 (0.0-0.4); Eosinophils % 4.4 % (0.1-12.0); Hematocrit 33.4 % (42.0-52.0); Hemoglobin 11.1 g/dL (14.1-18.0); Lymphocytes # 1.1 K/mm3 (0.7-4.5); Lymphocytes % 25.8 % (10-50); Mean Corpuscular HGB Conc 33.3 g/dL (31.8-35.4); Mean Corpuscular Hemoglobin 27.8 pg (27.0-31.2); Mean Corpuscular Volume 83.4 fl (80-94); Monocytes # 0.4 K/mm3 (0.1-1.0); Monocytes % 10.3 % (1.7-9.3); Neutrophils # 2.5 K/mm3 (1.8-7.8); Neutrophils % 59.1 % (37.0-80.0); Platelet Count 81 K/mm3 (142-424); Red Cell Distribution Width 17.2 % (11.5-17.5); White Blood Count 4.2 K/mm3 (4.8-10.8)
== END 2024-09-26 08:36 | disposition home or self-care (01) ==
LOC: INF 08:01
PROVIDERS: PCP Family Medicine; Visit Provider Internal Medicine Medical Oncology
DX: D64.9 Anemia, unspecified (principal)
CPT/HCPCS: 36415; 85025

== ENCOUNTER 2024-10-11 08:05 | Outpatient (CLI) | payer MEDICARE, SELFPAY ==
--- NOTE | 2024-10-11 08:15 | PC.NURSE ---
0815-collected labs via venipuncture stick in right ac with butterfly needle; pt to md appointment.
[2024-10-11 08:40] LABS: Eosinophils # 0.2 K/mm3 (0.0-0.4); Eosinophils % 5.3 % (0.1-12.0); Hematocrit 30.8 % (42.0-52.0); Hemoglobin 10.4 g/dL (14.1-18.0); Lymphocytes # 1.2 K/mm3 (0.7-4.5); Mean Corpuscular HGB Conc 33.8 g/dL (31.8-35.4); Mean Corpuscular Hemoglobin 28.1 pg (27.0-31.2); Mean Corpuscular Volume 83.2 fl (80-94); Mean Platelet Volume 9.6 fl (7.4-10.4); Monocytes # 0.5 K/mm3 (0.1-1.0); Monocytes % 11.5 % (1.7-9.3); Neutrophils # 2.3 K/mm3 (1.8-7.8); Neutrophils % 54.3 % (37.0-80.0); Platelet Count 90 K/mm3 (142-424); Red Cell Distribution Width 16.8 % (11.5-17.5); White Blood Count 4.3 K/mm3 (4.8-10.8)
== END 2024-10-11 08:20 | disposition home or self-care (01) ==
LOC: INF 08:07
PROVIDERS: PCP Family Medicine; Visit Provider Internal Medicine Medical Oncology
DX: D69.6 Thrombocytopenia, unspecified (principal)
CPT/HCPCS: 36415; 85025

== ENCOUNTER 2024-11-14 09:14 | Outpatient (CLI) | payer MEDICARE, SELFPAY ==
[2024-11-14 09:18] VITALS: BMI 29.0
[2024-11-14 09:28] LABS: Basophils % 0.7 % (0.1-2.0); Eosinophils # 0.2 K/mm3 (0.0-0.4); Eosinophils % 3.3 % (0.1-12.0); Hematocrit 32.7 % (42.0-52.0); Hemoglobin 10.4 g/dL (14.1-18.0); Lymphocytes # 1.5 K/mm3 (0.7-4.5); Lymphocytes % 27.1 % (10-50); Mean Corpuscular HGB Conc 31.8 g/dL (31.8-35.4); Mean Corpuscular Hemoglobin 25.6 pg (27.0-31.2); Mean Corpuscular Volume 80.5 fl (80-94); Mean Platelet Volume 10.7 fl (7.4-10.4); Monocytes # 0.6 K/mm3 (0.1-1.0); Monocytes % 11.3 % (1.7-9.3); Neutrophils # 3.1 K/mm3 (1.8-7.8); Neutrophils % 57.2 % (37.0-80.0); Platelet Count 109 K/mm3 (142-424); Red Blood Count 4.06 M/mm3 (4.60-6.20); Red Cell Distribution Width 15.4 % (11.5-17.5); White Blood Count 5.4 K/mm3 (4.8-10.8)
--- NOTE | 2024-11-14 13:32 | PC.NURSE ---
0918- cbc drawn per MD order via butterfly needle in right ac. needle removed and coban applied. pt tolerated well.
== END 2024-11-14 09:25 | disposition home or self-care (01) ==
LOC: INF 09:16
PROVIDERS: PCP Family Medicine; Visit Provider Internal Medicine Medical Oncology
DX: D64.9 Anemia, unspecified (principal)
CPT/HCPCS: 36415; 85025

== ENCOUNTER 2024-11-23 07:37 | Outpatient (CLI) | payer MEDICARE, SELFPAY ==
--- NOTE | 2024-11-23 07:43 | CA_ITS ---
FINAL REPORT TECHNIQUE: Multiple transverse and longitudinal images were performed of the right femoral-popliteal deep venous system with augmentation and compression maneuvers. CLINICAL HISTORY: Hx of DVT in RLE 12/2023 POPV, distal SFV. HTN, DM, AFIB. Patient stopped his blood thinners due to an impending oral surgery. COMPARISON: 12/09/2023 FINDINGS: Right lower extremity duplex ultrasound demonstrates normal flow in the deep venous system. There is no abnormal echogenicity to suggest thrombus. There is normal compression and augmentation. IMPRESSION: No evidence of right DVT. Reviewed, Interpreted and Dictated by Carloz Faulkner MD Transcribed by Chiara Polanco Authenticated and [facility]
--- NOTE | 2024-11-23 07:43 | CA_ITS ---
APPROVED REPORT EXAM: Comprehensive 2D, Doppler, and color-flow Echocardiogram Marine Pipefitter Helper: NEEL Bateman, RVS Ht: 6 ft 2 in Wt: 227lbs BSA: 2.29 BP: 133/61 mmHg Rhythm: Atrial Fibrillation Indications: Pre-op assessment, CAD-stents, CM, MR, Cirrhosis, Anemia, off blood thinners today for dental implants 2D Dimensions IVSd 1.22 cm M: 0.6-1.2 LVEF (Visual) 44.80 % PWd 0.93 cm M: 0.6 - 1.2 LA Volume 121.50 mL LVDd 5.76 cm M: 4.2 - 5.9 LA Volume Index [id number] mL/m2 (M/F) 16-34 LVDs 4.46 cm M: 2.5 - 4.0 EF AP4 37.80 % Left Atrium 5.16 cm M: 3.0 - 4.0 GL Strain -11.8 % M-Mode Dimensions LA Diam 5.31 cm (1.9-4.0) LVDd 6.00 cm (3.5-5.7) LVDs 3.36 cm (3.5-5.7) EF (Teich) 74.40% EPSs 1.28 cm FS 44.00% EDV (Teich) 180.00 mL TAPSE 2.26 (<1.7) ESV (Teich) 46.10 mL LV Diastology E Decel Time 203 (160-240 msec) E/A Ratio 1.43 MED A' 7.10 cm/s LAT A' 9.40 cm/s Aortic Valve ARLETTE Index 0.57 cm2/m2 AoV Peak Darrion. 244.0 (50-130 cm/s) AO Peak GR. 23.90 mmHg AO Mean GR. 13.10 (<5 mmHg) AO VTI 60.5 (18-25 cm) ARLETTE (VTI) 1.35 (2.5-4.5 cm2) Mitral Valve MV A Velocity 87.0 (40-130 cm/s) E/A Ratio 1.43 MV Mean Gr. 2.70 (<2mmHg) Pulmonary Valve PV Peak Velocity 118.0 (50-150 cm/s) ME End VMAX 239.0 cm/s Tricuspid Valve TR P. Velocity 237.00 cm/s RAP Estimate 10.00 mmHg RVSP 32.50 mmHg Left Ventricle The left ventricle is moderately dilated. Left ventricular systolic function is mildly decreased. There is increased LV wall thickness. There is mild global hypokinesis present. Grade 2 diastolic dysfunction is present. LVEF is 45%. Right Ventricle The right ventricle is moderately dilated. The right ventricular systolic function is normal. Atria Left atrium is severely dilated. Right atrium is mildly dilated. There is no Doppler evidence of interatrial shunt. Aortic Valve The aortic valve is mildly thickened. Mild aortic stenosis is present. ARLETTE by 2D planimetry is 1.7 cm2. Peak velocity 2.7 m/s. Mean AV gradient 15 mmHg. Max AV gradient 27 mmHg. Mild aortic regurgitation. Mitral Valve Mild mitral annular calcification. The mitral valve leaflets are mildly thickened. No evidence of mitral valve stenosis. Moderate mitral regurgitation. Tricuspid Valve The tricuspid valve leaflets are thin and pliable. Mild to moderate tricuspid regurgitation. RVSP is 30-35 mmHg. Pulmonic Valve The pulmonary valve is normal in structure. Mild pulmonic regurgitation. Great Vessels The aortic root is normal in size. The ascending aorta is not well-visualized. IVC is normal in size and collapses >50% with inspiration. Pericardium There is no pericardial effusion. Other Information Study Quality: Fair Conclusion Moderately dilated LV with mild reduction in LV systolic function (LVEF 45%). Grade 2 diastolic dysfunction. Moderate RV dilation with normal RV function. Biatrial dilation. Mild (ARLETTE by 2D planimetry is 1.7 cm2. Peak velocity 2.7 m/s. Mean AV gradient 15 mmHg. Max AV gradient 27 mmHg). Moderate MR. Mild to moderate TR. Mild PI. RVSP is 30-35 mmHg. Compared to prior study from 01/07/2024, several changes are noted. Electronically signed by : Le Serna MD 12/01/2024 11:30:32
== END 2024-11-23 23:59 | disposition home or self-care (01) ==
PROVIDERS: PCP Family Medicine; Visit Provider Internal Medicine
DX: Z01.810 Encounter for preprocedural cardiovascular examination (principal); I34.0 Nonrheumatic mitral (valve) insufficiency; I51.89 Other ill-defined heart diseases; I48.0 Paroxysmal atrial fibrillation; I49.3 Ventricular premature depolarization; M79.604 Pain in right leg; G89.29 Other chronic pain
CPT/HCPCS: 93306; 93971

== ENCOUNTER 2024-12-21 07:56 | Outpatient (CLI) | payer MEDICARE, SELFPAY ==
[2024-12-21 08:07] VITALS: BMI 29.0
--- NOTE | 2024-12-21 08:28 | PC.NURSE ---
0828-collected labs via venipuncture stick in right ac with butterfly needle;collected urine and nasal swab for preop testing. pt d/c home
[2024-12-21 08:36] LABS: Microscopic, Urine URINE MICROSCOPIC (MICROSCOPIC)
[2024-12-21 08:39] LABS: Basophils % 0.8 % (0.1-2.0); Eosinophils # 0.2 K/mm3 (0.0-0.4); Hematocrit 34.5 % (42.0-52.0); Hemoglobin 10.9 g/dL (14.1-18.0); Lymphocytes # 1.2 K/mm3 (0.7-4.5); Lymphocytes % 23.2 % (10-50); Mean Corpuscular HGB Conc 31.6 g/dL (31.8-35.4); Mean Corpuscular Hemoglobin 24.5 pg (27.0-31.2); Mean Corpuscular Volume 77.7 fl (80-94); Mean Platelet Volume 11.2 fl (7.4-10.4); Monocytes # 0.6 K/mm3 (0.1-1.0); Monocytes % 11.5 % (1.7-9.3); Neutrophils # 3.3 K/mm3 (1.8-7.8); Neutrophils % 61.3 % (37.0-80.0); Platelet Count 111 K/mm3 (142-424); Red Blood Count 4.44 M/mm3 (4.60-6.20); Red Cell Distribution Width 15.8 % (11.5-17.5); White Blood Count 5.3 K/mm3 (4.8-10.8)
[2024-12-21 08:46] LABS: Appearance,Urine CLEAR (Clear); Bilirubin,Urine Negative (Negative); Blood, Urine Negative (Negative); Color,Urine YELLOW (Yellow); Glucose,Urine (UA) Negative (Negative); Ketones,Urine Negative (Negative); Leukocyte Esterase,Urine Negative (Negative); Nitrate,Urine Negative (Negative); Protein,Urine Negative (Negative)
[2024-12-21 08:48] LABS: Albumin Level 3.8 g/dl (3.5-5.0); Chloride 106 mmol/L (98-107); Potassium 4.4 mmoL/L (3.5-5.1); Sodium 135 mmol/L (136-145)
[2024-12-21 08:50] LABS: Blood Urea Nitrogen 13 mg/dl (9-20); Creatinine Clearance Estimated 87 mL/min (50-200); Estimated Glomerular Filt Rate 61 ml/min (>60); GFR (African American) 74 ML/MIN (>60)
[2024-12-21 08:51] LABS: Alanine Aminotransferase 21 U/L (12-78); Albumin/Globulin Ratio 1.4 (1.1-1.8); Alkaline Phosphatase 74 U/L (38-126); Anion Gap 8.4 mEq/L (5-15); Aspartate Amino Transferase 33 U/L (17-59); Bilirubin,Total 1.4 mg/dl (0.2-1.3); Calcium 9.2 mg/dl (8.4-10.2); Carbon Dioxide 25 mmol/L (22.0-30.0); Globulin 2.7 g/dL (1.3-3.2); Glucose 106 mg/dl (74-100); Total Protein,Serum 6.5 g/dl (6.3-8.2)
[2024-12-21 08:55] LABS: Bacteria,Urine Trace /lpf
[2024-12-21 08:57] LABS: Activated Partial Thrombo Time 27.7 seconds (22.5-28.5); INR 1.24 (0.9-1.1); Prothrombin Time 13.3 seconds (9.2-12.1)
[2024-12-21 09:07] LABS: Amphetamine/Metha Screen,Urine Negative ng/ml (<1000); Barbiturates Screen,Urine Negative ng/ml (<200)
[2024-12-21 09:08] LABS: Benzodiazepines Screen,Urine Negative ng/ml (<200)
[2024-12-21 09:09] LABS: Cannabinoid Screen,Urine Negative ng/ml (<50); Cocaine Screen,Urine Negative ng/ml (<300)
[2024-12-21 09:10] LABS: Methadone Screen,Urine Negative ng/ml (<300); Opiate Screen,Urine Negative ng/ml (<300)
[2024-12-21 09:11] LABS: Phencyclidine Screen,Urine Negative ng/ml (<25)
[2024-12-21 09:54] LABS: Hemoglobin A1C 4.7 % (4.0-6.0)
[2024-12-22 18:17] LABS: MRSA DNA PCR Positive (Negative)
== END 2024-12-21 08:30 | disposition home or self-care (01) ==
LOC: INF 07:58
PROVIDERS: Orthopaedic Surgery Adult Reconstructive Orthopaedic Surgery; PCP Family Medicine; Visit Provider Internal Medicine Medical Oncology
DX: D69.6 Thrombocytopenia, unspecified (principal); E11.9 Type 2 diabetes mellitus without complications; Z79.899 Other long term (current) drug therapy
CPT/HCPCS: 36415; 80053; 80307; 81001; 83036; 85025; 85610; 85730; 87641

== ENCOUNTER 2025-01-16 09:01 | Outpatient (CLI) | payer MEDICARE, BC, SELFPAY ==
--- NOTE | 2025-01-16 09:17 | PC.NURSE ---
0917-COLLECTED LABS VIA VENIPUNCTURE STICK IN RIGHT AC WITH BUTTERFLY NEEDLE;PT TO D/C HOME
[2025-01-16 09:38] LABS: Basophils % 0.4 % (0.1-2.0); Eosinophils # 0.3 K/mm3 (0.0-0.4); Hematocrit 31.8 % (42.0-52.0); Hemoglobin 10.2 g/dL (14.1-18.0); Lymphocytes # 1.5 K/mm3 (0.7-4.5); Lymphocytes % 18.4 % (10-50); Mean Corpuscular HGB Conc 32.1 g/dL (31.8-35.4); Mean Corpuscular Hemoglobin 23.9 pg (27.0-31.2); Mean Corpuscular Volume 74.6 fl (80-94); Monocytes # 0.7 K/mm3 (0.1-1.0); Monocytes % 9.1 % (1.7-9.3); Neutrophils # 5.4 K/mm3 (1.8-7.8); Neutrophils % 67.8 % (37.0-80.0); Platelet Count 141 K/mm3 (142-424); Red Blood Count 4.26 M/mm3 (4.60-6.20); Red Cell Distribution Width 16.3 % (11.5-17.5); White Blood Count 7.9 K/mm3 (4.8-10.8)
== END 2025-01-16 09:20 | disposition home or self-care (01) ==
LOC: INF 09:02
PROVIDERS: PCP Family Medicine; Visit Provider Internal Medicine Medical Oncology
DX: D69.6 Thrombocytopenia, unspecified (principal)
CPT/HCPCS: 36415; 85025

== ENCOUNTER 2025-01-26 09:39 | Outpatient (CLI) | payer MEDICARE, BC, SELFPAY ==
--- NOTE | 2025-01-26 09:48 | PC.NURSE ---
0948-collected labs via venipuncture stick in right ac with butterfly needle;pt to d/c home to check results.
[2025-01-26 10:06] LABS: Iron 35 ug/dL (49-181)
[2025-01-26 10:17] LABS: Total Iron Binding Capacity 408 ug/dL (261-462)
[2025-01-26 10:41] LABS: Ferritin 32.4 ng/ml (17.9-464)
== END 2025-01-26 09:50 | disposition home or self-care (01) ==
LOC: INF 09:41
PROVIDERS: PCP Family Medicine; Visit Provider Internal Medicine Medical Oncology
DX: D69.6 Thrombocytopenia, unspecified (principal)
CPT/HCPCS: 36415; 82728; 83540; 83550

== ENCOUNTER 2025-01-30 08:00 | Outpatient (RCR) | payer MEDICARE, BC, SELFPAY | END 2025-01-30 23:59 | disposition home or self-care (01) | LOC: PT 08:00 | PROVIDERS: PCP Family Medicine; Visit Provider Orthopaedic Surgery Adult Reconstructive Orthopaedic Surgery | DX: Z96.652 Presence of left artificial knee joint (principal) | CPT/HCPCS: 97110; 97116; 97140; 97163; 97535 ==

== ENCOUNTER 2025-02-01 07:57 | Outpatient (CLI) | payer MEDICARE, BC, SELFPAY ==
[2025-02-01] MEDS: SODIUM CHLORIDE 0.9% 50ML BAG 50 ML IV (08:20)
[2025-02-01 08:27] VITALS: BMI 29.7
[2025-02-01] MEDS: IRON SUCROSE COMPLEX 200 MG in 0.9 % SODIUM CHLORIDE 100 ML 220 MG IV (08:30)
[2025-02-01 08:46] LABS: Albumin Level 3.7 g/dl (3.5-5.0); Basophils % 0.6 % (0.1-2.0); Chloride 101 mmol/L (98-107); Eosinophils # 0.1 K/mm3 (0.0-0.4); Eosinophils % 2.4 % (0.1-12.0); Hematocrit 32.2 % (42.0-52.0); Hemoglobin 10.1 g/dL (14.1-18.0); Lymphocytes # 1.2 K/mm3 (0.7-4.5); Lymphocytes % 24.3 % (10-50); Mean Corpuscular HGB Conc 31.4 g/dL (31.8-35.4); Mean Corpuscular Hemoglobin 23.8 pg (27.0-31.2); Mean Corpuscular Volume 75.8 fl (80-94); Mean Platelet Volume 10.5 fl (7.4-10.4); Monocytes # 0.6 K/mm3 (0.1-1.0); Monocytes % 11.6 % (1.7-9.3); Neutrophils # 3.1 K/mm3 (1.8-7.8); Neutrophils % 60.7 % (37.0-80.0); Platelet Count 123 K/mm3 (142-424); Potassium 4.8 mmoL/L (3.5-5.1); Red Blood Count 4.25 M/mm3 (4.60-6.20); Red Cell Distribution Width 17.4 % (11.5-17.5); Sodium 133 mmol/L (136-145); White Blood Count 5.1 K/mm3 (4.8-10.8)
[2025-02-01 08:49] LABS: Alanine Aminotransferase 20 U/L (12-78); Albumin/Globulin Ratio 1.2 (1.1-1.8); Alkaline Phosphatase 79 U/L (38-126); Anion Gap 12.8 mEq/L (5-15); Aspartate Amino Transferase 35 U/L (17-59); Bilirubin,Total 1.4 mg/dl (0.2-1.3); Blood Urea Nitrogen 16 mg/dl (9-20); Calcium 9.1 mg/dl (8.4-10.2); Carbon Dioxide 24 mmol/L (22.0-30.0); Creatinine Clearance Estimated 84 mL/min (50-200); Estimated Glomerular Filt Rate 55 ml/min (>60); GFR (African American) 67 ML/MIN (>60); Globulin 3.1 g/dL (1.3-3.2); Glucose 108 mg/dl (74-100); Total Protein,Serum 6.8 g/dl (6.3-8.2)
[2025-02-01 09:10] VITALS: BP 170/92; PULSE 85; RESP 18; O2SAT 100
[2025-02-01 12:06] LABS: Thyroid Stimulating Hormone 2.26 uIU/mL (0.465-4.68)
[2025-02-01 12:25] LABS: Vitamin B12 835 pg/mL (239-931)
[2025-02-01 13:09] LABS: Folate 7.39 ng/mL
== END 2025-02-01 09:10 | disposition home or self-care (01) ==
LOC: INF 07:58
PROVIDERS: PCP Family Medicine; Visit Provider Internal Medicine Medical Oncology
DX: D64.9 Anemia, unspecified (principal); D69.6 Thrombocytopenia, unspecified; Z86.2 Personal history of diseases of the blood and blood-forming organs and certain disorders involving the immune mechanism
CPT/HCPCS: 80053; 82607; 82746; 84443; 85025; 96365; J1756

== ENCOUNTER 2025-02-08 07:41 | Outpatient (CLI) | payer MEDICARE, BC, SELFPAY ==
[2025-02-08 09:38] VITALS: BP 146/78; PULSE 76; RESP 18; TEMP 36.1; O2SAT 100
[2025-02-08] MEDS: IRON SUCROSE COMPLEX 200 MG in 0.9 % SODIUM CHLORIDE 100 ML 220 MG IV (09:38)
[2025-02-08] MEDS: SODIUM CHLORIDE 0.9% 50ML BAG 50 ML IV (09:38)
[2025-02-08 10:15] VITALS: BP 138/76; PULSE 81; O2SAT 100
--- OUTSIDE RECORDS SUMMARY | 2025-02-09 21:42 | XMS_ITS | Continuity of Care Document ---
Author Organization [facility] Phone Care Team Providers Care Television Engineer Name Role Phone NAEEM CLIFFORD Admitting NAEEM CLIFFORD Primary Attending JADA CORTEZ Primary Care ALLERGIES AND ADVERSE REACTIONS ALLERGIES AND ADVERSE REACTIONS Code System Allergy Substance Adverse Reaction Date Reaction (Severity) Comment Status Reported By Updated By No Known Allergies [id number] on December 26, 2024 7:12:37 PM [facility] FAMILY HISTORY RELATION: Father Status: Cause of : Unknown Age at : 36 SNOMED-CT Diagnosis Age At Onset [id number] Malignant neoplastic disease RELATION: Mother Status: Cause of : Unknown Age at : Unknown SNOMED-CT Diagnosis Age At Onset [id number] Heart disease [id number] Diabetes mellitus RESULTS Patient: LUCIUS ART Date of : 1960 2 LABORATORY RESULTS Information is not available LABORATORY NARRATIVE RESULTS Information is not available RADIOLOGY RESULTS ORDER 100: CHEST 2 VIEWS ( INC: [id number]) ORDER DATE: December 28, 2024 3:45:00 PM [facility] PERFORMING LAB: [address] [id number] Final Result Date: December 28, 2024 4:14:[address] [address] Name: KAELYN KAN Exam Date: 12/28/2024 : 1960 Age 64 years Gender: M Physician: NAEEM CLIFFORD Facility: [facility] Facility HSV: Outpatient Exam: CHEST 2 VIEWS EXAMINATION: Chest 2 views CLINICAL INFORMATION: pre admission testing, total joints COMPARISON: None. FINDINGS: The heart size is normal. The pulmonary vasculature is normal. No focal consolidation. No pneumothorax or pleural effusion. The lungs are hyperinflated. No acute osseous or soft tissue abnormality. Bilateral glenohumeral arthroplasties. IMPRESSION: 1. No acute cardiopulmonary abnormality. 2. Findings suggestive of COPD. Electronically signed by: Garret Matos MD 12/28/2024 03:07 PM [facility] Dictated By: Garret Matos Transcribed By: Transcribed On: 12/28/2024 11:14 AM Electronically signed by: Garret Matos 12/28/2024 Thank you for referring LUCIUSKAELYN to [facility]. Legally authenticated by RENE BONILLA 2024-12-28 11:14:38 PATHOLOGY NARRATIVE RESULTS Information is not available MICROBIOLOGY RESULTS No Micro Labs/Results Exist for Patient BLOOD ADMIN RESULTS Information is not available MEDICATIONS HOME MEDICATIONS Status RXNORM NDC Medication Dose Route Frequency Dates Comments Reported By Updated By Drug Treatment Unknown DISCHARGE MEDICATIONS Status RXNORM NDC Medication Dose Route Frequency Dates Comments Physician Updated By No Discharge Medication Info rmation Available INPATIENT MEDICATIONS Status RXNORM NDC Medication Dose Route Frequency Rat e Quantity Dates Comments Physician Updated By No Inpatient Medication Info rmation Available SOCIAL HISTORY SOCIAL HISTORY SNOMED-CT Social History Element Description Effective Dates Offered Cessation Comment UpdatedBy [id number] Historical Tobacco smoking status Never Smoked [id number] on July 12, 2024 5:29:44 PM [facility] SOCIAL HISTORY - Gender Sex: Male SOCIAL HISTORY - Status : status i nformation is not available Intention in Next Year: intention information is not available SOCIAL HISTORY - Sexual Behavior Sexual Orientation Gender Identity SNOMED-CT Description SNO MED -CT Description Activity Level No of Partners Partner Type UpdatedBy Information is not available HEALTH CONCERNS Problems Concern Status Health Concern problem infor mation not available. Smoking Status Status Years Used Consumed packs p er day Health Concern smoking histo ry information not available. Family History Concern Status Health Concern family histor y information not available. ENCOUNTERS ENCOUNTER INFORMATION Reason for Visit PRE OP Admission December 28, 2024 3:21:[address] [address] Discharge December 28, 2024 3:21:00 PM [facility] DISCHARGED TO HOME OR SELF CARE ENCOUNTER DIAGNOSES Notes information is not tera ilable. Code System Diagnosis Onset Date Diagnosis information is not available. ABSTRACT DIAGNOSES Code System Diagnosis Updated By Z01.818 ICD10 ENCOUNTER FOR OT HER PREPROCEDURAL EXAMINATION [id number] on December 30, 2024 3:33:10 PM [facility] Z01.818 ICD10 ENCOUNTER FOR OT HER PREPROCEDURAL EXAMINATION [id number] on December 30, 2024 3:33:11 PM [facility] CARE TEAM Care Television Engineer Role NAEEM CLIFFORD Admitting NAEEM CLIFFORD Primary Attending JADA CORTEZ Primary Care CARE TEAM CARE button spindler Role on Team Status Start Date End Date Update d By DANA ELIAS PCP normal December 28, 2024 5:00:00 AM [facility] December 28, 2024 3:21:00 PM [facility] [id number] on December 28, 2024 3:22:02 PM [facility] VENESSA LOPEZ Attending normal December 28, 2024 5:00:00 AM [facility] December 28, 2024 3:21:00 PM [facility] [id number] on December 28, 2024 3:22:02 PM [facility] VENESSA LOPEZ Admitting normal December 28, 2024 5:00:00 AM [facility] December 28, 2024 3:21:00 PM [facility] [id number] on December 28, 2024 3:22:02 PM [facility]
--- OUTSIDE RECORDS SUMMARY | 2025-02-09 21:42 | XMS_ITS ---
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 Name Role Phone Unavailable Unavailable Unavailable Problems Includes: Active, inactive, and resolved Problems All Visits Onset Date Resolved Date Provider Condition S tatus Joint Pain in the Right Knee 03/01/2024 Nhi FLYNN Active Last Documented On 4 11:30AM ; [facility] Joint Pain in the Left Knee 03/01/2024 Nhi FLYNN Active Last Documented On 4 11:31AM ; [facility] Plan of Treatment Instructions to patient Lose weight Last Documented On 4 8:41AM ; [facility] Assessments Includes: Assessments for all patient encounters Findings Encounter Date Overweight Physician Specified with Duarte Lozada MD 01/22/2024 Last Documented On 4 9:15AM ; [facility] Instructions Includes: Instructions for all patient encounters Instructions to patient Lose weight Last Documented On 4 8:41AM ; [facility] Medical Equipment - Implanted Devices Includes: Current and historical Devices No Medical Equipment Recorded Medications Includes: Current and historical Medications Current Medications (continue as prescribed) Xarelto 20 MG Oral Tablet 01/07/2024 Provider: Diagnosis: Last Documented On 4 8:40AM By Radha Lee ; [facility] Potassium Chloride ER 10 MEQ Oral Tablet Extended Release 12/22/2023 Provider: MILAGROS BERMUDEZ MD Diagnosis: Last Documented On 4 8:40AM By Radha Lee ; [facility] Losartan Potassium 100 MG Oral Tablet 12/18/2023 Pro vider: Diagnosis: Last Documented On 4 8:40AM By Radha Lee ; [facility] Furosemide 40 MG Oral Tablet 11/20/2023 Provider: KAELYN LOWE MD Diagnosis: Last Documented On 4 8:40AM By Radha Lee ; [facility] Bisoprolol Fumarate 10 MG Oral Tablet 11/04/2023 Pro vider: Diagnosis: Last Documented On 4 8:40AM By Radha Lee ; [facility] Past Medications on file Bumetanide 2 MG Oral Tablet 01/13/2024 - 02/25/2024 Pr ovider: Diagnosis: Last Documented On 4 8:03AM By Jeramy Goldberg ; [facility] Nystatin [id number] UNIT/ML Mouth/Throat Suspension 01/13/2024 - 02/25/2024 Provider: MILAGROS SHARMA RN, MD Diagnosis: Last Documented On 4 8:03AM By Jeramy Goldberg ; [facility] dexAMETHasone 4 MG Oral Tablet 01/07/2024 - 02/25/2024 Provider: MILAGROS BERMUDEZ MD Diagnosis: Last Documented On 4 8:04AM By Jeramy Goldberg ; [facility] predniSONE 50 MG Oral Tablet 01/01/2024 - 02/25/2024 Arya dixon: MILAGROS BERMUDEZ MD Diagnosis: Last Documented On 4 8:04AM By Jeramy Goldberg ; [facility] Potassium Chloride ER 10 MEQ Oral Tablet Extended Release 12/22/2023 - 02/25/2024 Provider: MILAGROS SHARMA RN, MD Diagnosis: Last Documented On 4 8:04AM By Jeramy Goldberg ; [facility] Eliquis DVT/PE Starter Pack 5 MG Oral Tablet Therapy Pack 12/11/2023 - 02/25/2024 Provider: Diagnosis: Last Documented On 4 8:04AM By Jeramy Goldberg ; [facility] metroNIDAZOLE 500 MG Oral Tablet 11/26/2023 - 02/25/20 Provider: JADA CORTEZ Diagnosis: Last Documented On 4 8:05AM By Jeramy Goldberg ; [facility] Ondansetron HCl 4 MG Oral Tablet 11/26/2023 - 02/25/20 24 Provider: JADA CORTEZ Diagnosis: Last Documented On 4 8:05AM By Jeramy Goldberg ; [facility] Medications Administered Includes: Administered Medications in patient's chart No Administered Medications Recorded Vital Signs Includes: Vital Signs from 02/10/2024 through 02/09/2025 Vital Name 03/01/2024 11:31A Blood Pressure Sitting (mmHg) 124/68 Pulse Rate-Sitting (bpm) 72 Height (in) 73 Weight (lb) 251 Body Mass Index 33.1 Body Surface Area 2.4 Oxygen Saturation (%) 98 Last Documented: On 03/01/2024 11:44A M ; [facility] Results Includes: Results from 02/10/2024 through 02/09/2025 No Results Recorded For Specified Dates History of Present Illness History of Present Illness not supported for this document type No History of Present Illness Recorded Social History Description Last Updated Tobacco non-user 01/22/2024 Last Documented On 4 9:15AM ; [facility] Smoking Status Unknown Medical History Includes: Medical History in patient's chart No Medical History Recorded Family History Includes: Family History in patient's chart No Family History Recorded Review of Systems Review of Systems not supported for this document type No Review of Systems Recorded Mental Status No Mental Status Recorded Functional Status No Functional Status Recorded Physical Exam Physical Exam not supported for this document type No Physical Exam Recorded Allergies Includes: Active, inactive, and resolved Allergies No Known Allergies Encounters Includes: Encounters from 02/10/2024 through 02/09/2025 Encounter Provider Location Date Check-In Time Check-Out Time Diagnosis [facility] 9:57AM 11:03AM Insurance Includes: Active Insurance Policies Plan Name Member ID Group # Subscriber Relationship Effect leigh Dates - [facility] [id number] KAELYN Parekh Clinical Notes Includes: Signed Clinical Notes starting from 10/16/2022 * Progress note Date Encounter Last Documented by 03/01/2024 Pre Admission Testing Last docum ented on 03/02/2024; 1:55 PM, Nhi FLYNN; [facility] Chief Complaint The Chief Complaint is: Left knee pain. History of Present Illness KAELYN KAN is a 63 year old male. - Allergy list reviewed - Problem list reviewed - Medication list reviewed This patient is a pleasant 63 yo WM who presents with left knee pain. The pain has been going on for 5 years but has gotten progressively worse. He describes it as a sharp pain. It is now to the point that it is affecting his ADLs. He has tried injections without relief of his pain. He has not fallen. He has not used an assistive device. He was seen at Dr Lozada's office and evaluated and it was determined that he has severe DJD affecting the left knee. Pt was offered a Left Total Knee Arthroplasty and agreed to the procedure. Pt has a h/o DVT approx 3 months ago. He has been on Xarelto since time. No recurrence. No PE history. No trouble with anesthesia in the past. Pt denies h/o COPD/Asthma/TSERING. Current Medication - Bisoprolol Fumarate 10 MG Oral Tablet 90 days, 0 refills - Furosemide 40 MG Oral Tablet 90 days, 0 refills - Losartan Potassium 100 MG Oral Tablet 90 days, 0 refills - Potassium Chloride ER 10 MEQ Oral Tablet Extended Release 30 days, 0 refills - Xarelto 20 MG Oral Tablet 30 days, 0 refills Past Medical/Surgical History HTN CAD DVT Social History Tobacco use: Tobacco non-user. Allergies - No Known Allergies Review Of Systems Constitutional: Neg for fevers or chills. Eyes: Neg for blurry vision or change in vision. ENT: Neg for sore throat, ear pain, or dizziness. Cardiac: Neg for chest pain or dyspnea on exertion. Respiratory: Neg for shortness of breath. Gastrointestinal: Neg for nausea, vomiting, diarrhea, or constipation. Musculoskeletal: Pos for left knee pain. Neurologic: Neg for headaches or seizures. Psychiatric: Neg for anxiety and depression. Integumentary: Neg for rash. Physical Findings - Vitals taken 03/01/2024 11:31 am BP-Sitting 124/68 mmHg Pulse Rate-Sitting 72 bpm Height 73 in Weight 251 lbs Body Mass Index 33.1 kg/m2 Body Surface Area 2.4 m2 Oxygen Saturation 98 % Constitutional: This is a pleasant 63 yo WM in no acute distress. HEENT: Normocephalic, atraumatic. PEERLA. Extraocular muscles intact. Conjunctiva pink without exudate. Oropharynx pink and moist. Neck supple. No JVD. Cardiac: SI, S2. RRR. No M/R/G. Respiratory: Lungs CTA bilaterally. No wheezes, rales, or rhonchi. Abdomen: Soft, nontender, nondistended. Active bowel sounds. No visible masses. Musculoskeletal: Bilateral LE without clubbing, cyanosis or edema. Integumentary: Skin is pink, warm and dry. No rashes. Neurologic: CN II-XII grossly intact. Psychiatric: Judgment and affect appropriate. Tests WBC- 11.1 Hbg- 13.7 Hct- 40.2 Plts- 256 Glucose- 87 Na- 138 K- 3.7 BUN- 21 Cr- 1.38 GFR- 57 Albumin- 2.6 Prealbumin- 4 A1C- 5.6 PT- 2.7 INR- 26.9 PTT- 48 Fructosamine- 223 MRSA Nasal Swab- NEG EKG- SR, 77 User Defined 5 1. Preoperative Exam- Pt underwent preoperative laboratory workup and diagnostic studies. 2. H/o DVT- Postoperative anticoagulation per Dr Lozada. 3. CAD- Cardiac Stents x 3 approx 5 years ago. Pt received cardiac clearance from Dr Guerrier. 4. Cirrhosis- Pt is being referred to GI by Dr Bermudez. 5. HTN- Continue Losartan and Bisoprolol. 6. ITP- Pt needs Heme/Onc Clearance from Dr Bermudez. Left Knee Pain secondary to DJD- Pt surgery cancelled for his comorbidities. This patient should not be rescheduled until/unless he is cleared by Dr Bermudez and will likely need to be at the hospital at that time. ASC Questions Does the patient have any additional hardware in their body? Dental Implants Is the patient a Diabetic? No Is the patient on a Semaglutide? No Has the patient ever been treated for MRSA? No Has the patient ever smoked? No Does the patient drink daily ETOH? Quit 3 months ago Do you have a h/o GIB following NSAIDs use? No Does the patient have a clear discharge plan that includes having someone drop them off for surgery, pick them up, and stay with them 72 hrs. This person will have to be able to cook meals, assist in getting the patient to and from the restroom and give medications. Yes, Darryl Roca
--- OUTSIDE RECORDS SUMMARY | 2025-02-09 21:42 | XMS_ITS | Clinical Summary ---
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 Name Role Phone Unavailable Unavailable Unavailable Reason for Visit and Chief Complaint NEW PATIENT Problems Includes: Problems addressed during this encounter and other active Problems All Visits Onset Date Resolved Date Provider Condition S tatus Joint Pain in the Right Knee 03/01/2024 Nhi FLYNN Active Last Documented On 4 11:30AM ; [facility] Joint Pain in the Left Knee 03/01/2024 Nhi FLYNN Active Last Documented On 4 11:31AM ; [facility] Plan of Treatment No Plan of Treatment Recorded Assessments Includes: Assessments from this encounter No Assessments Recorded Medical Equipment - Implanted Devices Includes: Current Devices No Medical Equipment Recorded Medications Includes: Medications discussed during this encounter and other current Medications Current Medications (continue as prescribed) Xarelto 20 MG Oral Tablet 01/07/2024 Provider: Diagnosis: Last Documented On 4 8:40AM By Radha Lee ; [facility] Potassium Chloride ER 10 MEQ Oral Tablet Extended Release 12/22/2023 Provider: MILAGROS BLANK MD Diagnosis: Last Documented On 4 8:40AM By Radha Lee ; [facility] Losartan Potassium 100 MG Oral Tablet 12/18/2023 Pro vider: Diagnosis: Last Documented On 4 8:40AM By Radha Lee ; [facility] Furosemide 40 MG Oral Tablet 11/20/2023 Provider: KAELYN LOWE MD Diagnosis: Last Documented On 4 8:40AM By Radha Lee ; [facility] Bisoprolol Fumarate 10 MG Oral Tablet 11/04/2023 Pro vider: Diagnosis: Last Documented On 4 8:40AM By Radha Lee ; [facility] Medications Administered Includes: Administered Medications from this encounter No Administered Medications Recorded Vital Signs Includes: Vital Signs from this encounter Vital Name 01/19/2006 01:43P Respiration Rate (breaths/min) 16 Height (in) 74 Weight (lb) 235 Body Mass Index (kg/m2) 30.2 Body Surface Area (m2) 2.3 Note: shirin Last Documented: On 01/19/2006 1:39PM ; [facility] Results Includes: Results discussed during this encounter No Results Recorded For Specified Dates History of Present Illness Includes: History of Present Illness from this encounter No History of Present Illness Recorded Social History No Social History Recorded - Smoking Status Unknown Medical History Includes: Medical History addressed during this encounter No Medical History Recorded Family History Includes: Family History addressed during this encounter No Family History Recorded Review of Systems Includes: Review of Systems from this encounter No Review of Systems Recorded Mental Status Includes: Mental Status from this encounter No Mental Status Recorded Functional Status Includes: Functional Status from this encounter No Functional Status Recorded Physical Exam Includes: Physical Exam from this encounter No Physical Exam Recorded Allergies Includes: Active Allergies No Known Allergies Encounters Encounter Provider Location Date Check-In Time Check-Out Time Diagnosis NEW PATIENT Yolanda Landa MD [facility] 01/20/20 06 10:20AM 2:49PM Insurance Includes: Active Insurance Policies Plan Name Member ID Group # Subscriber Relationship Effect leigh Dates 1 - [facility] [id number] KAELYN KAN Self Clinical Notes Includes: Clinical Notes from this encounter No Clinical Notes Recorded
--- OUTSIDE RECORDS SUMMARY | 2025-02-09 21:42 | XMS_ITS | Continuity of Care Document ---
Author Organization [facility] Phone Care Team Providers Care Continuing Education Specialist Name Role Phone NAEEM CLIFFORD Surgeon NAEEM CLIFFORD Admitting JADA CORTEZ Primary Care PAYAM CORRALES Surgeon Unavailable NAEEM CLIFFORD Primary Attending ALLERGIES AND ADVERSE REACTIONS ALLERGIES AND ADVERSE REACTIONS Code System Allergy Substance Adverse Reaction Date Reaction (Severity) Comment Status Reported By Updated By No Known Allergies [id number] on January 02, 2025 1:10:33 PM UTC ASSESSMENTS Arthritis of left knee ; FAMILY HISTORY RELATION: Father Status: Cause of : Unknown Age at : 36 SNOMED-CT Diagnosis Age At Onset [id number] Malignant neoplastic disease RELATION: Mother Status: Cause of : Unknown Age at : Unknown SNOMED-CT Diagnosis Age At Onset [id number] Heart disease [id number] Diabetes mellitus PROBLEMS PATIENT PROBLEMS Code Description/Comments Category Status Upda hetal By [id number] Arthritis of left knee active [id number] on January 02, 2025 12:20:15 PM UTC RESULTS Patient: LUCIUS ART Date of : 1960 2 LABORATORY RESULTS ORDER 400: TYPE/SCREEN (LOIN C: 39588-1) ORDER DATE: January 01, 2025 2:39:00 PM UTC Specimen Source: Specimen Type: PERFORMING LAB: [address] [id number] Result Comment: Final Result Date: January 01, 2025 2:39:00 PM UTC (TECH: bud) LOINC TEST FLAG [place] [address]-3 History of Procedure N Completed January 01, 2025 2:39:00 PM UTC (TECH: HL7) 06382-1 ABO and Rh group hou el - Blood N O POSITIVE January 01, 2025 2: 39:00 PM UTC (TECH: HL7) 890-4 Blood group antibody screen [Presence] in Serum or Plasma N NEGATIVE January 01, 2025 2: 39:00 PM UTC (TECH: HL7) 25690-7 PROMIS item bank - cognitive function - version 2.0 N Completed January 01, 2025 2: 39:00 PM UTC (TECH: bud) LABORATORY NARRATIVE RESULTS Information is not available RADIOLOGY RESULTS ORDER 900: KNEE 1 TO 2V LT ( LOINC: 86365-5) ORDER DATE: January 02, 2025 3:25:00 PM UTC PERFORMING LAB: [address] [id number] Final Result Date: January 02, 2025 5:16:[address] [address] Name: KAELYN KAN Exam Date: 01/02/2025 : 1960 Age 64 years Gender: M Physician: NAEEM CLIFFORD Facility: [facility] Facility HSV: Outpatient Exam: KNEE 1 TO 2V LT PROCEDURE DESCRIPTION: XR LEFT KNEE 1-2 VIEWS CLINICAL INDICATION: Status post left total knee arthroplasty. TECHNIQUE: 2 views / 2 images submitted. COMPARISON: No prior studies were compared. FINDINGS: There is no evidence of acute fracture or dislocation. There are postoperative changes from total knee replacement and patellar resurfacing. IMPRESSION: Postsurgical changes of the knee. Electronically signed by: Jens Cuevas MD 01/04/2025 09:15 AM [facility] Dictated By: JENS CUEVAS Transcribed By: Transcribed On: 01/02/2025 12:16 PM Electronically signed by: JENS CUEVAS 01/02/2025 Thank you for referring KAELYN KAN to [facility]. Legally authenticated by FAITH Medina 2025-01-02 12:16:00 PATHOLOGY NARRATIVE RESULTS ORDER 600: PATHOLOGY SPECIME N (LOINC: 01107-5) ORDER DATE: January 02, 2025 2:46:00 PM [facility] Specimen Source: PATH Specimen Type: Refer to path ology laboratory PERFORMING LAB: [address] [id number] Final Result Date: January 03, 2025 7:15:00 PM [facility] TEST: PATHOLOGY SPECIMEN MICROBIOLOGY RESULTS No Micro Labs/Results Exist for Patient BLOOD ADMIN RESULTS Information is not available TREATMENT PLAN DISCHARGE MEDICATIONS Status RXNORM Medication Dose Route Frequency Dates Comments U pdated By Continued [id number] Xarelto Oral Tablet 15 MG 15 MG ORAL ONCE DAILY Prescri bed: January 02, 2025 3:27:44 PM [facility] [id number] on January 02, 2025 3:27:44 PM [facility] Continued 054709 Dexlansoprazole Oral Capsule Delayed Release 60 MG 60 MG ORAL ONCE DAILY Prescri bed: January 02, 2025 3:27:44 PM [facility] [id number] on January 02, 2025 3:27:44 PM [facility] Continued [id number] Percocet Oral Tablet 5-325 MG 1 TAB ORAL EVERY FOUR HOURS NEEDED Prescri bed: January 02, 2025 3:27:44 PM [facility] [id number] on January 02, 2025 3:27:44 PM [facility] Continued [id number] Sennosides-Docus a te Sodium Oral Tablet 8.6-50 MG 1 TAB ORAL TWICE A DAY NEEDED Prescri bed: January 02, 2025 3:27:44 PM [facility] [id number] on January 02, 2025 3:27:44 PM [facility] Continued 435383 Bisoprolol Fumarate Oral Tablet 10 MG 10 MG ORAL ONCE DAILY Prescri bed: January 02, 2025 3:27:44 PM [facility] [id number] on January 02, 2025 3:27:44 PM [facility] PATIENT OPEN ORDERS Code System Description Frequency Occurrences Priority Start Date Ordering Physician Updated By Patient open order informati on is not available. SCHEDULED PROCEDURES Code System Description Status Scheduled Date Upd ated By Patient scheduled procedure information is not available. MEDICATIONS HOME MEDICATIONS Status RXNORM [facility] Medication Dose Route Frequency Dates Comments Reported By Updated By Active [id number] 38060 74844 1 Bisoprolol Fumarate Oral Tablet 10 MG 10.0 MG ORAL DAILY Last Dose: 2024 1:00:0 0 PM [facility] [id number] on January 02, 2025 1:14:52 PM [place] Active 778025 31463 34242 0 Dexlansopraz ole Oral Capsule Delayed Release 60 MG 60.0 MG ORAL DAILY Last Dose: 2024 1:00:0 0 PM [id number] on January 02, 2025 1:15:19 PM [facility] Active 0226010 43058 67703 0 Xarelto Oral Tablet 15 MG 15.0 MG ORAL DAILY Last Dose: 2024 1:00:0 0 PM [facility] [id number] on January 02, 2025 1:11:43 PM UT Active 4830357 72448 18587 0 Percocet Oral Tablet 5-325 MG 1.0 TAB ORAL Q4HPRN Last Dose: [id number] on January 02, 2025 3:26:26 PM [facility] Active 198681 60050 54452 2 Sennosides-D ocusate Sodium Oral Tablet 8.6-50 MG 1.0 TAB ORAL BIDPRN Last Dose: [id number] on January 02, 2025 3:26:55 PM [facility] DISCHARGE MEDICATIONS Status RXNORM [facility] Medication Dose Route Frequency Dates Comments Physician Updated By Continue d [id number] 7532 8057 830 Xarelto Oral Tablet 15 MG 15.0 MG ORAL ONCE DAILY Prescr ibed: January 02, 2025 3:27:4 4 PM [facility] [id number] on January 02, 2025 3:27:44 PM [facility] Continue d 018819 5126 0594 400 Dexlansopra zole Oral Capsule Delayed Release 60 MG 60.0 MG ORAL ONCE DAILY Prescr ibed: January 02, 2025 3:27:4 4 PM [facility] VENESSA LOPZE [id number] on January 02, 2025 3:27:44 PM [facility] Continue d 0578482 4931 1062 370 Percocet Oral Tablet 5-325 MG 1.0 TAB ORAL EVERY FOUR HOURS NEEDED Prescr ibed: January 02, 2025 3:27:4 4 PM [facility] VENESSA LOPEZ [id number] on January 02, 2025 3:27:44 PM [facility] Continue d 832011 9850 5118 102 Sennosides- Docusate Sodium Oral Tablet 8.6-50 MG 1.0 TAB ORAL TWICE A DAY NEEDED Prescr ibed: January 02, 2025 3:27:4 4 PM [facility] [id number] on January 02, 2025 3:27:44 PM [facility] Janie dukes [id number] 2130 2007 701 Bisoprolol Fumarate Oral Tablet 10 MG 10.0 MG ORAL ONCE DAILY Prescr ibed: January 02, 2025 3:27:4 4 PM [facility] [id number] on January 02, 2025 3:27:44 PM [facility] INPATIENT MEDICATIONS Status RXNORM [facility] Medication Dose Route Frequency Rat e Quantity Dates Comments Physician Updated By Alvaro inued [id number] 0286 8011 704 LACTATED RINGERS SOLN 1000. 0 ML INTRAV ENOUS ONE TIME ADMINISTRA TION (UNSCHEDUL ED) 25.0 ML/HR Start: December 31, 2024 12:17: 00 PM UT End: January 02, 2025 1:07:5 5 PM [facility] BRYSON Dukes [id number] on January 02, 2025 1:07:00 PM [facility] Alvaro inued 915060 6142 8011 704 LACTATED RINGERS SOLN 1000. 0 ML INTRAV ENOUS ONE TIME ONLY (PACU) 25.0 ML/HR Start: December 31, 2024 12:17: 00 PM UT End: January 02, 2025 3:27:4 4 PM [facility] BRYSON Dukes [id number] on January 03, 2025 5:25:00 [id number] 00[facility] 9117 630 meperidine (DEMEROL) 25 MG/ML SOLN 12.5 MG INTRAV ENOUS NEEDED (PACU) Start: December 31, 2024 12:17: 00 PM UT End: January 02, 2025 3:27:4 4 PM [facility] BRYSON Dukes [id number] on January 03, 2025 5:25:00 AM [facility] [id number] 0040 9117 630 meperidine (DEMEROL) 25 MG/ML SOLN 25.0 MG INTRAV ENOUS NEEDED (PACU) Start: December 31, 2024 12:17: 00 PM UT End: January 02, 2025 3:27:4 4 PM [facility] BRYSON Dukes [id number] on January 03, 2025 5:25:00 AM UTC Discont inued 2075095 6332 3080 811 fentaNYL (SUBLIMAZE) 50 MCG/ML SOSY 25.0 MCG INTRAV ENOUS EVERY 5 MINUTES NEEDED (PACU) Start: December 31, 2024 12:17: 00 PM UTC End: January 02, 2025 3:27:4 4 PM UT BRYSON Dukes [id number] on January 03, 2025 5:25:00 AM UTC Discont inued 0331323 6332 3080 811 fentaNYL (SUBLIMAZE) 50 MCG/ML SOSY 50.0 MCG INTRAV ENOUS EVERY 5 MINUTES NEEDED (PACU) Start: December 31, 2024 12:17: 00 PM UTC End: January 02, 2025 3:27:4 4 PM UT BRYSON Dukes [id number] on January 03, 2025 5:25:00 AM UTC Discont inued 0359934 1130 9426 401 HYDROmorpho ne (DILAUDID) 0.5 MG/0.5ML SOLN 0.5 MG INTRAV ENOUS EVERY 10 MINUTES NEEDED (PACU) Start: December 31, 2024 12:17: 00 PM UTC End: January 02, 2025 3:27:4 4 PM UT BRYSON Dukes [id number] on January 03, 2025 5:25:00 AM UTC Discont inued 3080495 5848 9128 331 HYDROmorpho ne (DILAUDID) 1 MG/ML SOLN 1.0 MG INTRAV ENOUS EVERY 10 MINUTES NEEDED (PACU) Start: December 31, 2024 12:17: 00 PM UTC End: January 02, 2025 3:27:4 4 PM UTC BRYSON Dukes [id number] on January 03, 2025 5:25:00 AM UTC Discont inued 5457308 5848 8010 250 PERCOCET 5-325 MG TABS 1.0 TAB ORAL ONE TIME ADMINISTRA TION (UNSCHEDUL ED) Start: December 31, 2024 12:17: 00 PM UTC End: January 02, 2025 7:55:0 0 PM UTC BRYSON Dukes [id number] on January 03, 2025 5:25:00 AM UTC Discont inued 1288359 1478 8010 250 PERCOCET 5-325 MG TABS 2.0 TAB ORAL ONE TIME ADMINISTRA TION (UNSCHEDUL ED) Start: December 31, 2024 12:17: 00 PM UTC End: January 02, 2025 7:55:0 0 PM UT BRYSON Dukes [id number] on January 03, 2025 5:25:00 AM UTC Discont inued 2548566 9665 5613 000 ondansetron (ZOFRAN) INJ 4 MG/2 ML SOLN 4.0 MG INTRAV ENOUS NEEDED (PACU) Start: December 31, 2024 12:17: 00 PM UTC End: January 02, 2025 3:27:4 4 PM UT BRYSON Dukes [id number] on January 03, 2025 5:25:00 AM UTC Discont inued 0942872 0051 7970 201 droperidol (INAPSINE) 2.5 MG/ML SOLN 0.625 MG INTRAV ENOUS NEEDED (PACU) Start: December 31, 2024 12:17: 00 PM UTC End: January 02, 2025 3:27:4 4 PM UTC BRYSON Dukes [id number] on January 03, 2025 5:25:00 AM UTC Discont inued 3438071 2228 3041 112 midazolam (VERSED) 2 MG/2 ML SOLN 1.0 MG INTRAV ENOUS EVERY FIVE MINUTES NEEDED Start: December 31, 2024 12:17: 00 PM UTC End: January 02, 2025 3:27:4 4 PM UTC BRYSON Dukes [id number] on January 03, 2025 5:25:00 AM UTC Discont inued 0950971 6097 3041 112 midazolam (VERSED) 2 MG/2 ML SOLN 2.0 MG INTRAV ENOUS NEEDED (PACU) Start: December 31, 2024 12:17: 00 PM UTC End: January 02, 2025 3:27:4 4 PM UTC BRYSON Dukes [id number] on January 03, 2025 5:25:00 AM UTC Discont inued 814511 3849 1092 825 promethazin e (PHENERGAN) 25 MG/ML SOLN 12.5 MG INTRAV ENOUS NEEDED (PACU) Start: December 31, 2024 12:17: 00 PM UTC End: January 02, 2025 3:27:4 4 PM UTC BRYSON Dukes [id number] on January 03, 2025 5:25:00 AM UTC Discont inued XXXX XXX0 011 promethazin e (PHENERGAN) 12.5 MG GEL 12.5 MG TOPICA L NEEDED (PACU) Start: December 31, 2024 12:17: 00 PM UTC End: January 02, 2025 3:27:4 4 PM UTC BRYSON Dukes [id number] on January 03, 2025 5:25:00 AM UTC Discont inued 5184761 8411 3913 925 ceFAZolin (ANCEF) 2 GM SOLR 2.0 GM INTRAV ENOUS ONE TIME ADMINISTRA TION (UNSCHEDUL ED) 100.0 ML/HR Start: January 02, 2025 12:20: 00 PM UTC End: January 02, 2025 1:05:0 5 PM UTC VENESSA Aviles [id number] on January 02, 2025 1:05:00 PM UTC Discont inued 6633142 0822 8004 941 sodium chloride 0.9% SOLN 50.0 ML INTRAV ENOUS ONE TIME ADMINISTRA TION (UNSCHEDUL ED) 100.0 ML/HR Start: January 02, 2025 12:20: 00 PM UTC End: January 02, 2025 1:05:0 4 PM UTC VENESSA Aviles [id number] on January 02, 2025 1:05:00 PM UTC Discont inued 0090 4673 061 acetaminoph en (TYLENOL) 500 MG TABS 1000. 0 MG ORAL ONE TIME ADMINISTRA TION (UNSCHEDUL ED) Start: January 02, 2025 12:20: 00 PM UTC End: January 02, 2025 1:07:1 8 PM UTC VENESSA Aviles [id number] on January 02, 2025 1:07:00 PM UTC Discont inued 825203 9981 3716 601 celeCOXIB (CeleBREX) 200 MG CAPS 400.0 MG ORAL ONE TIME ADMINISTRA TION (UNSCHEDUL ED) Start: January 02, 2025 12:20: 00 PM UTC End: January 02, 2025 1:07:1 7 PM UT VENESSA Aviles [id number] on January 02, 2025 1:07:00 PM UTC Discont inued 959042 2727 2100 001 tranexamic acid (CYKLOKAPRO N) 1000 MG SOLN 1000. 0 MG INTRAV ENOUS ONE TIME ONLY (SCHEDULED DOSE) 300.0 ML/HR Start: January 02, 2025 12:20: 00 PM UTC End: January 02, 2025 3:27:4 4 PM UTC VENESSA Aviles [id number] on January 03, 2025 5:25:00 AM UTC Discont inued 5013752 1517 8004 941 sodium chloride 0.9% SOLN 50.0 ML INTRAV ENOUS ONE TIME ONLY (SCHEDULED DOSE) 300.0 ML/HR Start: January 02, 2025 12:20: 00 PM UTC End: January 02, 2025 3:27:4 4 PM UTC VENESSA Aviles [id number] on January 03, 2025 5:25:00 AM UTC Discont inued 470676 2485 2100 001 tranexamic acid (CYKLOKAPRO N) 1000 MG SOLN 1000. 0 MG INTRAV ENOUS ONE TIME ONLY (SCHEDULED DOSE) 300.0 ML/HR Start: January 02, 2025 12:20: 00 PM UTC End: January 02, 2025 1:05:0 6 PM UTC VENESSA Aviles [id number] on January 02, 2025 1:05:00 PM UTC Discont inued 5713928 2174 8004 941 sodium chloride 0.9% SOLN 50.0 ML INTRAV ENOUS ONE TIME ONLY (SCHEDULED DOSE) 300.0 ML/HR Start: January 02, 2025 12:20: 00 PM UTC End: January 02, 2025 1:05:0 6 PM UTC VENESSA Aviles [id number] on January 02, 2025 1:05:00 PM UTC Discont inued 6940062 7652 5623 105 ceFAZolin (ANCEF) 2 GM SOLR 2.0 GM INTRAV ENOUS ONE TIME ONLY (SCHEDULED DOSE) Start: January 02, 2025 12:56: 00 PM UTC End: January 02, 2025 12:56: 00 PM UTC VENESSA Aviles INTERFAC ED on January 02, 2025 12:56:00 PM UTC Discont inued 6356717 2529 3028 635 ropivacaine (NAROPIN) 0.5% 5 MG/ML SOLN 150.0 MG EPIDUR AL ONE TIME ONLY (SCHEDULED DOSE) Start: January 02, 2025 1:06:0 0 PM UTC End: January 02, 2025 1:06:0 0 PM UTC SHILPAERIS Aviles INTERFAC ED on January 02, 2025 1:07:00 PM UTC Discont inued 0915475 2074 9909 332 PACU - fentaNYL (SUBLIMAZE) 100 MCG/2ML SOLN 100.0 MCG INTRAV ENOUS ONE TIME ONLY (SCHEDULED DOSE) Start: January 02, 2025 1:06:0 0 PM UTC End: January 02, 2025 1:06:0 0 PM UT VENESAS HARTLEY Stefan INTERFAC ED on January 02, 2025 1:08:00 PM UTC Discont inued 1431102 4778 3028 635 ropivacaine (NAROPIN) 0.5% 5 MG/ML SOLN 150.0 MG EPIDUR AL ONE TIME ONLY (SCHEDULED DOSE) Start: January 02, 2025 1:14:0 0 PM UTC End: January 02, 2025 1:14:0 0 PM UTC VENESSA HARTLEY Stefan INTERFAC ED on January 02, 2025 1:15:00 PM UTC Discont inued 9313119 8438 9020 901 PROPOFOL 200 MG/20ML EMUL 200.0 MG INTRAV ENOUS ONE TIME ONLY (SCHEDULED DOSE) 8.333 MG/HR Start: January 02, 2025 10:07: 00 PM UTC End: January 02, 2025 7:55:0 0 PM UTC VENESSA Aviles [id number] on January 02, 2025 10:10:00 PM UTC Discont inued 6940401 4492 3016 505 DEXAMETHASO NE SODIUM PHOSPHATE 20.0 MG INTRAV ENOUS ONE TIME ONLY (SCHEDULED DOSE) 0.833 MG/HR Start: January 02, 2025 10:07: 00 PM UTC End: January 02, 2025 7:55:0 0 PM UTC VENESSA Aviles [id number] on January 02, 2025 10:10:00 PM UTC Discont inued 6420365 9910 9379 501 KETOROLAC TROMETHAMIN E 30 MG/M 30.0 MG ONE TIME ONLY (SCHEDULED DOSE) 1.25 MG/HR Start: January 02, 2025 10:07: 00 PM UTC End: January 02, 2025 7:55:0 0 PM UT VENESSA Aviles [id number] on January 02, 2025 10:10:00 PM UTC Discont inued 5200433 6405 5613 000 ONDANSETRON HCL 4 MG/2ML SOLN 4.0 MG INTRAV ENOUS ONE TIME ONLY (SCHEDULED DOSE) 0.167 MG/HR Start: January 02, 2025 10:07: 00 PM UTC End: January 02, 2025 7:55:0 0 PM UT VENESSA Aviles [id number] on January 02, 2025 10:10:00 PM UTC Discont inued 6600128 5363 3042 610 ROCURONIUM BROMIDE 100 MG/10ML 100.0 MG INTRAV ENOUS ONE TIME ONLY (SCHEDULED DOSE) 4.167 MG/HR Start: January 02, 2025 10:07: 00 PM UTC End: January 02, 2025 7:55:0 0 PM UT VENESSA Aviles [id number] on January 02, 2025 10:10:00 PM UTC Discont inued 5814421 7384 9662 902 QUELICIN 20 MG/ML SOLN 200.0 MG INTRAV ENOUS ONE TIME ONLY (SCHEDULED DOSE) 8.333 MG/HR Start: January 02, 2025 10:07: 00 PM UTC End: January 02, 2025 7:55:0 0 PM UT VENESSA Aviles [id number] on January 02, 2025 10:10:00 PM UT Discont inued 148779 8333 7460 525 GLYCOPYRROL ATE 1 MG/5ML SOLN 1.0 MG INTRAV ENOUS ONE TIME ONLY (SCHEDULED DOSE) 0.042 MG/HR Start: January 02, 2025 10:08: 00 PM UTC End: January 02, 2025 7:55:0 0 PM UT VENESSA Aviles [id number] on January 02, 2025 10:10:00 PM UT Discont inued 443874 8628 9054 510 NEOSTIGMINE METHYLSULFA TE 5 MG 5.0 MG INTRAV ENOUS ONE TIME ONLY (SCHEDULED DOSE) 0.208 MG/HR Start: January 02, 2025 10:08: 00 PM UT End: January 02, 2025 7:55:0 0 PM UT VENESSA Aviles [id number] on January 02, 2025 10:10:00 PM UT Discont inued 3111715 6634 3020 202 LIDOCAINE HCL 2 % SOLN 2.0 ML ONE TIME ONLY (SCHEDULED DOSE) 0.083 ML/HR Start: January 02, 2025 10:08: 00 PM UT End: January 02, 2025 7:55:0 0 PM UT VENESSA Aviles [id number] on January 02, 2025 10:10:00 PM UT SOCIAL HISTORY SOCIAL HISTORY SNOMED-CT Social History Element Description Effective Dates Offered Cessation Comment UpdatedBy [id number] Current Tobacco smoking status Never Smoked [id number] on December 26, 2024 7:14:21 PM UT SOCIAL HISTORY - Gender Sex: Male SOCIAL HISTORY - Status : status i nformation is not available Intention in Next Year: intention information is not available SOCIAL HISTORY - Sexual Behavior Sexual Orientation Gender Identity SNOMED-CT Description SNO MED -CT Description Activity Level No of Partners Partner Type UpdatedBy Information is not available VITAL SIGNS PATIENT VITAL SIGNS This section displays the mo st recent value for each vital sign as of January 04, 2025 2:23:54 PM [facility] Loinc Code Vital Sign Activity Date Result Updated By 8302-2 Body height January 02, 2025 1:11:06 PM [facility] 185.42 cm (73.0 in) [id number] on January 02, 2025 1:11:06 PM [facility] 70887-1 Body mass index (BMI) [Ratio] January 02, 2025 1:11:06 PM [facility] 30.482 kg/m2 [id number] on January 02, 2025 1:11:06 PM [facility] 3140-1 Body Surface Area Derived From Formula January 02, 2025 1:11:06 PM [facility] 2.2879 m2 [id number] on January 02, 2025 1:11:06 PM [facility] 68009-6 Body weight Measured January 02 1:11:06 PM [facility] 104.8 kg (231.0 lb) [id number] on January 02, 2025 1:11:06 PM [facility] PEDIATRIC GROWTH CHART - VITAL SIGNS This section displays Head C ircumference Percentile, Weight for Length Percentile and BMI Percentile Loinc Code Pediatric Measure Age (Months) Result Updat ed By No Pediatric Growth Chart Pe rcentile Information Available. PROCEDURES PATIENT PROCEDURES Procedure information is not available. PROCEDURE NOTE Note Title Operative/Procedure Note Date Of Service January 02, 2025 3:28:5 5 PM UTC Created By [id number] on January 02, 2025 3:28:55 PM UTC Signed By [id number] on January 02, 2025 3:29:59 PM UTC Pre-Procedure Diagnosis 1. Left knee osteoarthritis Post- Procedure Diagnosis Same Procedure / Surgery None 1. Left total knee arthroplasty CPT code 08018 Anesthesia Type General anesthesia Estimated Blood Loss Minimal Complications None Present at Time of Surgery Yes Indication Patient came to see me with left knee pain. Dull achy pain in nature worse the more they were up on it. Pain was worse when going up or down stairs. Occasionally woken him up at night. Continued to bother them despite conservative measures of rest ice anti-inflammatories physical therapy as well as cortisone injections. X-ray shows severe arthritis of the left knee. I explained that would benefit from a left total knee arthroplasty. Typical risks benefits and alternatives of the procedure were explained the patient wished to proceed. Risks included bleeding infection damage to nerves and vessels need for further procedures stroke heart attack blood clot even . Procedure Description / Findings Patient was seen in the preoperative holding area. Left lower extremity was marked. H and P and consent were updated. They were then wheeled to the operative suite placed on the operating table in a supine position. They then underwent general endotracheal anesthesia without complication. Tourniquet was applied to the left lower extremity left lower extremity was prepped and draped in normal sterile orthopedic fashion. Time-out was performed antibiotics had been given. Tranexamic acid had been given. Left lower extremity was then exsanguinated tourniquet inflated. Incision was then made in the midline 3 fingerbreadths above the superior pole patella to the medial aspect of the tibial tubercle. This was taken down through subcutaneous tissue to identify the extensor mechanism. Medial parapatellar arthrotomy was then performed followed by slight peel of the deep MCL removal of lateral fat pad and anterior synovitis. Next we made our patellar cut it was 14 mm thick and flat. We then flexed knee marked Whitesides line and transepicondylar axis and removed the ACL. We then placed the intramedullary femoral guide set at 5 valgus taking 9 mm distal femoral cut. Pinned our distal femoral cutting block into place made our distal femoral cut. We then placed a sizing guide referencing off the posterior condyles. We chose the correct size and placed that size 4 in [address] made our anterior cut making sure not to notch femur followed by our posterior condylar cut posterior chamfer cut and anterior chamfer cut. Next we brought the tibia forward set our extramedullary tibial guide. Set our varus valgus and our posterior slope. Pinned it to take 2 mm off the medial side which was the low side. We made our proximal tibial cut. We then brought the leg out into full extension remove medial lateral meniscus and released superficial MCL and medial-sided osteophytes as they were tight medially. Next we placed the attune dog bone making sure we had taken enough bone in both flexion and extension. We then placed a femoral sulcus guide made our femoral sulcus cut and removed posterior osteophytes with a curved osteotome and a mallet. We then brought the tibia forward set our rotation on the medial 3rd of the tibial tubercle for the correct size tibial base plate. We reamed and punched this. We are now ready for trialing we placed our insert and brought the leg out in full extension stable to varus valgus stress, at 90 of flexion we elevated 1 mm on the medial side 2-3 mm on the lateral side felt we had a nice well-balanced knee in both flexion and extension. Next we made our patellar cut making sure it was parallel to the tibial cut. Placed a patellar trial and it tracked appropriately with a no hands technique. We then removed all trial components thoroughly irrigated suction dried the wound injected our posterior capsule with local anesthetic and then cemented on the tibial component removing excess cement with [place] and pickups followed by the femoral component again removing excess cement with [place] and pickups. Placed our real polyethylene snapped this into place brought the leg out in full extension and cemented on the patellar component holding all this in place until the cement cured. Thoroughly irrigated suctioned and dried the wound injected the rest of our local anesthetic and then closed in layered fashion using 1. Stratafix to close parapatellar arthrotomy. 2-0 Vicryl to close subcutaneous tissue and 3-0 Monocryl to close subcuticular layer. Prineo dressing was applied followed by Covaderm. Patient was then awoken from general endotracheal anesthesia without complication taken recovery room stable condition. Specimens None Tubes/Drains None Implants depuy 32 mm anatomic patella, attune size 6 cruciate retaining left femur, 6 x 5 mm cruciate retaining fixed bearing insert, attune size 7 tibial base plate fixed bearing S + Disposition of Patient Patient be discharged home. Weightbearing as tolerated left lower extremity. Okay to shower in 2 days. Leave dressing intact until return to clinic. Keep incision dry. Be working with home health physical therapy. I will prescribe him Percocet and Senokot. I want to resume his Xarelto. I will see him back in 2 weeks. Electronically signed by VENESSA LOPEZ on [facility] Problems Concern Status Health Concern problem infor mation not available. Smoking Status Status Years Used Consumed packs p er day Health Concern smoking histo ry information not available. Family History Concern Status Health Concern family histor y information not available. MEDICAL EQUIPMENT MEDICAL EQUIPMENT Device Status Quantity Dates Procedure Comments Updated By Orthopedic cement reginae CHAU: ()[id number] Assigning Authority: FDA Device Identifier:[id number] Lot or Batch Number:[id number] Expiration Date:2026-04-01 ACTIVE Implanted: January 02, 2025 [id number] on January 02, 2025 2:48:54 PM [facility] Polyethylene patella prosthesis CHAU: ()[id number] Assigning Authority: FDA Device Identifier:[id number] Lot or Batch Number:[id number] Expiration Date:2029-10-01 ACTIVE Implanted: January 02, 2025 [id number] on January 02, 2025 3:23:57 PM [place] Knee femur prosthesis CHAU: ()[id number] Assigning Authority: FDA Device Identifier:[id number] Lot or Batch Number:[id number] Expiration Date:2034-05-01 ACTIVE Implanted: January 02, 2025 [id number] on January 02, 2025 3:24:43 PM [place] Uncoated knee tibia prosthesis, metallic CHAU: ()[id number] Assigning Authority: FDA Device Identifier:[id number] Lot or Batch Number:[id number] Expiration Date:2034-06-01 ACTIVE Implanted: January 02, 2025 [id number] on January 02, 2025 3:25:21 PM [place] Tibial insert CHAU: [id number] Assigning Authority: FDA Device Identifier:[id number] Lot or Batch Number:[id number] Expiration Date:2029-03-01 ACTIVE Implanted: January 02, 2025 [id number] on January 02, 2025 3:26:01 PM [place] ENCOUNTERS ENCOUNTER INFORMATION Reason for Visit L TKA WITH ROBTICS Admission January 02, 2025 11:55:00 AM [facility] [address] [facility] [address] Discharge January 02, 2025 7:55:00 PM [place] DIS CHARGED TO HOME OR SELF CARE ENCOUNTER DIAGNOSES Notes information is not tera ilable. Code System Diagnosis Onset Date Diagnosis information is not available. ABSTRACT DIAGNOSES Code System Diagnosis Updated By M17.12 ICD10 UNILATERAL PRIMA RY OSTEOARTHRITIS, LEFT KNEE [id number] on January 04, 2025 2:22:37 PM [facility] M17.12 ICD10 UNILATERAL PRIMA RY OSTEOARTHRITIS, LEFT KNEE [id number] on January 04, 2025 2:22:37 PM [facility] I25.2 ICD10 OLD MYOCARDIAL INFARCTION AA [id number] on January 04, 2025 2:22:37 PM [facility] I25.10 ICD10 ATHEROSCLEROTIC HEART DISEASE OF [place] CORONARY ARTERY WITHOUT ANGINA PECTORIS [id number] on January 04, 2025 2:22:37 PM [facility] Z95.820 ICD10 PERIPHERAL VASCU LAR ANGIOPLASTY STATUS WITH IMPLANTS AND GRAFTS [id number] on January 04, 2025 2:22:37 PM [place] I11.0 ICD10 HYPERTENSIVE HEA RT DISEASE WITH HEART FAILURE [id number] on January 04, 2025 2:22:37 PM [place] I50.9 ICD10 HEART FAILURE, UNSPECIFIED A [id number] on January 04, 2025 2:22:37 PM [place] E78.5 ICD10 HYPERLIPIDEMIA, UNSPECIFIED [id number] on January 04, 2025 2:22:38 PM [facility] Z86.718 ICD10 PERSONAL HISTORY OF OTHER VENOUS THROMBOSIS AND EMBOLISM [id number] on January 04, 2025 2:22:38 PM [place] R06.00 ICD10 DYSPNEA, UNSPECIFIED [id number] on January 04, 2025 2:22:38 PM [place] K21.9 ICD10 GASTRO-ESOPHAGEA L REFLUX DISEASE WITHOUT ESOPHAGITIS [id number] on January 04, 2025 2:22:38 PM [facility] K74.60 ICD10 UNSPECIFIED CIRRHOSIS OF [place] [id number] on January 04, 2025 2:22:38 PM [facility] D64.9 ICD10 ANEMIA, UNSPECIFIED [id number] on January 04, 2025 2:22:38 PM [facility] D69.6 ICD10 THROMBOCYTOPENIA, UNSPECIFIE D [id number] on January 04, 2025 2:22:38 PM [facility] Z79.01 ICD10 USP (CURRE NT) USE OF ANTICOAGULANTS [id number] on January 04, 2025 2:22:38 PM [facility] Z79.899 ICD10 OTHER USP (CURRENT) DR DEL ROSARIO THER[facility] [id number] on January 04, 2025 2:22:38 PM [facility] CARE TEAM Care Continuing Education Specialist Role NAEEM CLIFFORD Surgeon NAEEM CLIFFORD Admitting JADA CORTEZ Primary Care PAYAM CORRALES Surgeon NAEEM CLIFFORD Primary Attending HOSPITAL DISCHARGE INSTRUCTION DISCHARGE INSTRUCTION Encounter [id number] Admit Date January 02, 2025 11:55: 00 AM [facility] Discharge Date January 02, 2025 7:55:0 0 PM [facility] PATIENT EDUCATION SUMMARY Patient/Visit Information: Patient Name: KAELYN KAN Diag: Attending Caregiver: VENESSA Aviles Discharge Instruction Sheets Provided: Anesthesia, [facility] DC Instructions After BEFAST-Stroke Warning Signs COVID-19 CDC-EN Discharge Information Fall Prevention in Hospitals and in the Home [facility] Pain and Responsible Opioid (Pain Medication) Management KSO- Total Knee Arthoplasty KYNECT- HELP Medication Side Effects Suicide - Managing your Feelings Patient Instructions: Followup Appointments/Instructions: 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 Role on Team Status Start Date End Date Update d By ANTONI Salazar CRNA Surgeon normal January 02, 2025 1:38:00 PM [facility] January 02, 2025 7:55:00 PM [facility] [id number] on January 04, 2025 2:23:12 PM [facility] VENESSA LOPEZ Surgeon normal January 02, 2025 11:55:00 AM [facility] January 02, 2025 7:55:00 PM [facility] [id number] on January 04, 2025 2:23:12 PM [facility] DANA ELIAS [facility] normal December 19, 2024 5:23:15 PM [facility] January 02, 2025 7:55:00 PM [facility] [id number] on January 04, 2025 2:23:12 PM [facility] VENESSA LOPEZ Attending normal December 19, 2024 5:23:15 PM [facility] January 02, 2025 7:55:00 PM [facility] [id number] on January 04, 2025 2:23:12 PM [facility] VENESSA LOPEZ Admitting normal December 19, 2024 5:23:15 PM [facility] January 02, 2025 7:55:00 PM [facility] [id number] on January 04, 2025 2:23:12 PM [facility]
--- OUTSIDE RECORDS SUMMARY | 2025-02-09 21:42 | XMS_ITS ---
Author Organization Unknown Problems Date Problem Result OnSetDate Icd10 SnomedCode Severity 04/09/2022 00:00:00 Thrombocytopenia D69.6 [id number] 04/09/2022 00:00:00 Alcoholism F10.20 [id number] 04/03/2023 00:00:00 Acute on chronic diastolic congestive heart failure I50.33 [id number] 04/06/2023 00:00:00 Bigeminy I49.8 [id number] 04/06/2023 00:00:00 Type 2 diabetes mellitus without complication, unspecified whether senior care insulin use E11.9 [id number] 04/27/2023 00:00:00 Gastrointestinal hemorrhage, unspecified gastrointestinal hemorrhage type K92.2 [id number] 04/27/2023 00:00:00 Anemia, unspecified type D64.9 [id number] 04/28/2023 00:00:00 Other chronic pain G89.29 [id number] 04/28/2023 00:00:00 Arthritis of left knee M17.12 [id number] 104 02/01/2024 00:00:00 Idiopathic thrombocytopenic purpura (ITP) D69.3 [id number] 02/01/2024 00:00:00 Leukocytosis, unspecified type D72.829 [id number]
--- OUTSIDE RECORDS SUMMARY | 2025-02-09 21:42 | XMS_ITS | Clinical Summary ---
Author Organization [facility] Address [address] [place] [address] Phone Care Team Providers Care Prefabricator Name Role Phone Unavailable Unavailable Unavailable Reason for Visit and Chief Complaint The Chief Complaint is: Left knee pain Problems Includes: Problems addressed during this encounter and other active Problems Current Visit Onset Date Resolved Date Provider Kevin ward Status Joint Pain in the Right Knee 03/01/2024 Nhi FLYNN Active Last Documented On 4 11:30AM ; [facility] Joint Pain in the Left Knee 03/01/2024 Nhi FLYNN Active Last Documented On 4 11:31AM ; [facility] Plan of Treatment No Plan of Treatment Recorded Assessments Includes: Assessments from this encounter Findings 1. Preoperative Exam- Pt underwent preoperative laboratory workup and diagnostic studies. - Last Documented On 03/02/2024 1:55PM ; [facility] 2. H/o DVT- Postoperative anticoagulation per Dr Lozada. - Last Documented On 03/02/2024 1:55PM ; [facility] 3. CAD- Cardiac Stents x 3 approx 5 years ago. Pt received cardiac clearance from Dr Guerrier. - Last Documented On 03/02/2024 1:55PM ; [facility] 4. Cirrhosis- Pt is being referred to GI by Dr Bermudez. - Last Documented On 03/02/2024 1:55PM ; [facility] 5. HTN- Continue Losartan and Bisoprolol. - Last Documented On 03/02/2024 1:55PM ; [facility] 6. ITP- Pt needs Heme/Onc Clearance from Dr Bermudez. - Last Documented On 03/02/2024 1:55PM ; [facility] Left Knee Pain secondary to DJD- Pt surgery cancelled for his comorbidities. This patient should not be rescheduled until/unless he is cleared by Dr Bermudez and will likely need to be at the hospital at that time. - Last Documented On 03/02/2024 1:55PM ; [facility] ASC Questions - Last Documented On 03/02/2024 1:55PM ; [facility] Does the patient have any additional hardware in their body? Dental Implants - Last Documented On 03/02/2024 1:55PM ; [facility] Is the patient a Diabetic? No - Last Documented On 03/02/2024 1:55PM ; [facility] Is the patient on a Semaglutide? No - Last Documented On 03/02/2024 1:55PM ; [facility] Has the patient ever been treated for MRSA? No - Last Documented On 03/02/2024 1:55PM ; [facility] Has the patient ever smoked? No - Last Documented On 03/02/2024 1:55PM ; [facility] Does the patient drink daily ETOH? Quit 3 months ago - Last Documented On 03/02/2024 1:55PM ; [facility] Do you have a h/o GIB following NSAIDs use? No - Last Documented On 03/02/2024 1:55PM ; [facility] Does the patient have a clear discharge plan that includes having someone drop them off for surgery, pick them up, and stay with them 72 hrs. This person will have to be able to cook meals, assist in getting the patient to and from the restroom and give medications. Yes, Darryl Roca - Last Documented On 03/02/2024 1:55PM ; [facility] Medical Equipment - Implanted Devices Includes: Current Devices No Medical Equipment Recorded Medications Includes: Medications discussed during this encounter and other current Medications Current Medications (continue as prescribed) Xarelto 20 MG Oral Tablet 01/07/2024 Provider: Diagnosis: Last Documented On 4 8:40AM By Radha BLANCHARD [facility] Potassium Chloride ER 10 MEQ Oral Tablet Extended Release 12/22/2023 Provider: MILAGROS BERMUDEZ MD Diagnosis: Last Documented On 4 8:40AM By Rdaha Lee ; [facility] Losartan Potassium 100 MG Oral Tablet 12/18/2023 Pro vider: Diagnosis: Last Documented On 4 8:40AM By Radha Lee ; [facility] Furosemide 40 MG Oral Tablet 11/20/2023 Provider: KAELYN LOWE MD Diagnosis: Last Documented On 4 8:40AM By Radha Lee ; [facility] Bisoprolol Fumarate 10 MG Oral Tablet 11/04/2023 Pro vider: Diagnosis: Last Documented On 4 8:40AM By Radha Lee ; [facility] Medications Administered Includes: Administered Medications from this encounter No Administered Medications Recorded Vital Signs Includes: Vital Signs from this encounter Vital Name 03/01/2024 11:31A Blood Pressure Sitting (mmHg) 124/68 Pulse Rate-Sitting (bpm) 72 Height (in) 73 Weight (lb) 251 Body Mass Index 33.1 Body Surface Area 2.4 Oxygen Saturation (%) 98 Last Documented: On 03/01/2024 11:44A M ; [facility] Results Includes: Results discussed during this encounter No Results Recorded For Specified Dates History of Present Illness Includes: History of Present Illness from this encounter HPI KAELYN KAN is a 63 year old [...] in the past. Pt denies h/o COPD/Asthma/TSERING. Social History Description Last Updated Tobacco non-user 01/22/2024 Last Documented On 4 10:46AM ; [facility] Smoking Status Unknown Medical History Includes: Medical History addressed during this encounter Description Last Updated HTNCADDVT 03/01/2024 Last Documented On 4 10:52AM ; [facility] Family History Includes: Family History addressed during this encounter No Family History Recorded Review of Systems Includes: Review of Systems from this encounter Constitutional: Neg for fevers or chills. Eyes: [...] anxiety and depression. Integumentary: Neg for rash. Mental Status Includes: Mental Status from this encounter No Mental Status Recorded Functional Status Includes: Functional Status from this encounter No Functional Status Recorded Physical Exam Includes: Physical Exam from this encounter Allergies Includes: Active Allergies No Known Allergies Encounters Encounter Provider Location Date Check-In Time Check-Out Time Diagnosis Pre Admission Testing Nhi FLYNN [facility] 03/01/20 24 9:57AM 11:03AM Insurance Includes: Active Insurance Policies Plan Name Member ID Group # Subscriber Relationship Effect leigh Dates - [facility] [id number] KAELYN KAN Self Clinical Notes Includes: Clinical Notes from this encounter * Progress note Date Encounter Last Documented by 03/01/2024 Pre Admission Testing Last docum ented on 03/02/2024; 1:55 PM, Nhi FLYNN; [facility] Chief Complaint The Chief Complaint is: Left [...]
--- OUTSIDE RECORDS SUMMARY | 2025-02-09 21:43 | XMS_ITS ---
Care Plan - [facility] Created on: February 09, 2025 KAELYN KAN : 1960 Sex: Male Author Organization [facility] Address [address] [place] [address] Phone Care Team Providers Care Joy Operator Name Role Phone Unavailable Unavailable Unavailable
--- OUTSIDE RECORDS SUMMARY | 2025-02-09 21:43 | XMS_ITS | Data Portability ---
Author Organization [facility] - [place] [facility] [place] [facility] Address [address] [place] [id number] Care Team Providers Care Accounts Payable Associate Name Role Phone [facility] Primary Care Provider Assessment Encounter Date Assessment Date Assessment LastModified by Organization Details LastModified Time 06/25/2023 06/25/2023 63-year-old male with: 1) History of GI bleeding: He was referred by his PCP for PillCam examination, which showed no source of bleeding. It is not clear if he has undergone endoscopic evaluation previously, which he may be at high risk for due to profound thrombocytopenia. -Will obtain CBC and iron study per below. He denies recent signs of GI blood loss 2) Presumed cirrhosis: No evidence of decompensation at this time. CT from 08/01/22 indicated cirrhosis with mild splenomegaly plus acute mesenteric vein thrombosis. He has a history of moderate to heavy alcohol use, none x2 months. -Strict alcohol avoidance counseled. -Will obtain comprehensive lab workup of potential causes of chronic liver disease. -Will reassess his platelets, determine need for possible EGD for screening of varices if feasible. -2g daily sodium restriction recommended. -Avoid NSAIDS. He may take acetaminophen up to 2g daily as needed. -Will check for immunity to hepatitis A and B, offer vaccination if indicated. -Will obtain AFP and US liver now and q6 months for HCC screening. 3) Constipation: Start Miralax 1-2 times daily as needed. 4) Thrombocytopenia: Profound. He sees a shotgun shell assembly machine adjuster in [place], [place]. Previously improved on steroids. He stopped steroids 2 weeks ago. Obtain CBC now. 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 Following with hematology. [email or web address] Not available 06/25/2023 10:56:17 07/23/2023 07/23/2023 63-year-old male with: 1) History of GI bleeding: He was referred by his PCP for PillCam examination, which showed no source of bleeding. He has not undergone recent endoscopy, states colonoscopy was likely 10 years ago. -He denies recent signs of GI blood loss -I have recommended EGD and colonoscopy for further evaluation of anemia and for screening of esophageal varices. He states he would consider EGD, but not until the spring. He states he will not have another colonoscopy. I have discussed that underlying malignancy or other potentially serious issues cannot be diagnosed without endoscopic examination. He reports understanding. 2) Cirrhosis: Alcohol induced. No evidence of decompensation at this time. CT from 08/01/22 indicated cirrhosis with mild splenomegaly plus acute mesenteric vein thrombosis. He has a history of moderate to heavy alcohol use, none x3 months. -Strict alcohol avoidance counseled. -Comprehensive lab workup of potential causes of chronic liver disease was negative. -EGD recommended for screening of EV. He does not wish to schedule at this time, states he may consider in the spring. -2g daily sodium restriction recommended. -Avoid NSAIDS. He may take acetaminophen up to 2g daily as needed. -Will check for immunity to hepatitis A and B, offer vaccination if indicated. -Will obtain AFP and US liver q6 months for HCC screening. Recent US and AFP with no concerns for HCC. 3) Constipation: Miralax as needed. Start Simethicone for bloating. 4) Thrombocytopenia: Profound. He sees a shotgun shell assembly machine adjuster in [place], [place]. Previously improved on steroids. This improved with steroids previously, worsenend when they were stopped. 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 Following with hematology. 6) GERD: Change Nexium to Pantoprazole. [email or web address] Not available 07/23/2023 18:04:22 08/11/2024 08/11/2024 64-year-old male with: 1) History of GI bleeding: He was referred by his PCP for PillCam examination, which showed no source of bleeding. EGD and colonoscopy negative. He continues to require blood transfusion. 2) Cirrhosis: Alcohol induced. Decompensated with ascites and hepatic encephalopathy. CT from 08/01/22 indicated cirrhosis with mild splenomegaly plus acute mesenteric vein thrombosis. He has a history of moderate to heavy alcohol use, none x3 months. -Strict alcohol avoidance counseled. -Comprehensive lab workup of potential causes of chronic liver disease was negative. -Check MELD labs. 3) Constipation: Miralax as needed. Start Simethicone for bloating. 4) Thrombocytopenia: Profound. Patient follows with Dr. Bermudez. 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 Partially responsive to steroids. 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 6) GERD: Change Pantoprazole to Dexilant. 7) Hepatic Encephalopathy: Start Xifaxin. 9) Ascites/LE edema: Continue Lasix/Aldactone 100/40. Not adherent to salt restriction. Repeated counseling today. 10) Prophy: Colonoscopy and EGD negative 07/16/24. Plan for EGD in one year (07/27) due to decompensation. Colonoscopy due in 2033. 2g daily sodium restriction recommended. -Avoid NSAIDS. He may take acetaminophen up to 2g daily as needed. -Will check for immunity to hepatitis A and B, offer vaccination if indicated. -Will obtain AFP and US liver q6 months for HCC screening. Recent US and AFP with no concerns for HCC. Pt reports recent US abd at [facility]. WIll obtain. Not available 08/11/2024 12:23:52 10/13/2024 10/13/2024 64-year-old male with: 1) History of GI bleeding: He was referred by his PCP for PillCam examination, which showed no source of bleeding. EGD and colonoscopy negative. He continues to require blood transfusion. 2) Cirrhosis: Alcohol induced. Decompensated with ascites and hepatic encephalopathy. CT from 08/01/22 indicated cirrhosis with mild splenomegaly plus acute mesenteric vein thrombosis. He has a history of moderate to heavy alcohol use, none x3 months. -Strict alcohol avoidance counseled. -Comprehensive lab workup of potential causes of chronic liver disease was negative. -No current INR to check MELD. 3) Constipation: Miralax as needed. Start Simethicone for bloating. 4) Thrombocytopenia: Profound. Patient follows with Dr. Bermudez. 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 Partially responsive to steroids. 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 6) GERD: Dexilant has significantly improved his symptoms. Continue. 7) Hepatic Encephalopathy: Mild. Intolerant of lactulose. Will see if any cost reduction for Xifaxin is possible. 9) Ascites/LE edema: Continue Lasix/Aldactone 100/40. Not adherent to salt restriction. Repeated counseling today. 10) Prophy: Colonoscopy and EGD negative 07/16/24. Plan for EGD in one year (07/27) due to decompensation. Colonoscopy due in 2033. 2g daily sodium restriction recommended. -Avoid NSAIDS. He may take acetaminophen up to 2g daily as needed. -Will check for immunity to hepatitis A and B, offer vaccination if indicated. -Will obtain AFP and US liver q6 months for HCC screening. Recent US and AFP with no concerns for HCC. Pt reports recent US abd at [facility]. WIll obtain. Not available 10/13/2024 10:41:40 02/09/2025 02/09/2025 64-year-old male with: 1) History of GI bleeding: He was referred by his PCP for PillCam examination, which showed no source of bleeding. EGD and colonoscopy negative. He continues to require blood transfusion. 2) Cirrhosis: Alcohol induced. Decompensated with ascites and hepatic encephalopathy. CT from 08/01/22 indicated cirrhosis with mild splenomegaly plus acute mesenteric vein thrombosis. He has a history of moderate to heavy alcohol use, none x 9+ months. -Strict alcohol avoidance counseled. -Comprehensive lab workup of potential causes of chronic liver disease was negative. -No current INR to check MELD. - Labs ordered through with the patient's shotgun shell assembly machine adjuster, Dr. Bermudez. 3) Constipation: Miralax as needed. Start Simethicone for bloating. 4) Thrombocytopenia: Profound. Patient follows with Dr. Bermudez. 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 Partially responsive to steroids. 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 6) GERD: Dexilant has significantly improved his symptoms. Continue. 7) Hepatic Encephalopathy: Mild. Intolerant of lactulose. Xifaxan too expensive. 9) Ascites/LE edema: Continue Lasix/Aldactone 100/40. Not adherent to salt restriction. Repeated counseling today. 10) Prophy: Colonoscopy and EGD negative 07/16/24. Plan for EGD in one year (07/27) due to decompensation. Colonoscopy due in 2033. 2g daily sodium restriction recommended. -Avoid NSAIDS. He may take acetaminophen up to 2g daily as needed. -Immune to hepatitis a. Needs hepatitis-B vaccine at next visit. -Will obtain AFP and US liver q6 months for HCC screening. Recent US and AFP with no concerns for HCC. Patient to perform ultrasound at [facility]. Order given to patient today. Not available 02/09/2025 09:58:02 Plan of Treatment Reminders Order Date Submit Date Provider Last Modified By Organization Details Last Modified Time Details Appointments Establ ished Visit 15 min 2024 09:30A M Saeid Gilman MD Not available Not available Not available Establ ished Visit 15 min 2024 09:00A M Saeid Gilman MD Not available Not available Not available Lab CMP, serum or plasma 2024 025 [facility], [address], [address], [place], [address], 02/09/2025 09:47:27 CBC w/ auto diff 2024 025 [facility], [address], [address], [place], [address], 02/09/2025 09:47:27 afp (alpha -fetop rotein ) tumor marker , serum or plasma 2024 025 [facility], [address], [address], [place], [address], 02/09/2025 09:47:27 PT/PTT , plasma 2024 025 [facility], [address], [address], [place], [address], 02/09/2025 09:47:27 CMP, serum or plasma 2023 024 [facility], [address], [address], [place], [address], 08/12/2024 10:04:33 afp (alpha -fetop rotein ) tumor marker , serum or plasma 2023 024 [email or web address] [facility], [address], [address], [place], [address], 08/18/2024 09:03:53 PT/INR 2023 024 [email or web address] [facility], [address], [address], [place], [address], 08/18/2024 09:03:53 CBC w/ auto diff 2023 024 CARO [facility], [address], [address], [place], [address], 08/12/2024 09:09:00 hepati tis A virus Ab, qualit ative, immuno assay, serum 2023 024 LINDEN [facility], [address], [address], [place], [address], 08/14/2024 19:21:40 hepati tis B surfac e Ab, qualit ative, serum 2023 024 LINDEN [facility], [address], [address], [place], [address], 08/13/2024 12:51:57 CBC [address] (Registration ), [address] , [place], [address], 07/02/2023 08:11:07 CMP, serum or plasma [address] (Registration ), [address] , [place], [address], 07/02/2023 08:11:07 PT/INR [address] (Registration ), [address] [facility], [place], [address], 07/02/2023 08:11:07 afp (alpha -fetop rotein ), serum [address] (Registration ), [address] [facility], [place], [address], 07/02/2023 08:11:07 HUE (antin uclear antibo dies) screen , serum [address] (Registration ), [address] [facility], [place], [address], 07/02/2023 08:11:07 igg, quanti tative , serum [address] (Registration ), [address] [place], [address], 07/02/2023 08:11:08 actin smooth muscle Ab, serum [address] (Registration ), [address] [place], [address], 07/02/2023 08:11:08 mitoch ondria l Ab, serum [address] (Registration ), [address] [place], [address], 07/02/2023 08:11:08 hemoch romato sis mutati on (hfe), blood/ tissue [address] (Registration ), [address] [place], [address], 07/02/2023 08:11:08 iron + TIBC + ferrit in, serum [address] (Registration ), [address] [facility], [place], [address], 07/02/2023 08:11:08 alpha- 1-anti trypsi n (aat), QN, serum [address] (Registration ), [address] [facility], [place], [address], 07/02/2023 08:11:08 alpha- 1-anti trypsi n (aat) phenot ype, serum [address] (Registration ), [address] [facility], [place], [address], 07/02/2023 08:11:09 hepati tis B surfac e Ab, quanti tative , serum [address] (Registration ), [address] [place], [address], 07/02/2023 08:11:09 hepati tis A Ab, total, serum [address] (Registration ), [address] [place], [address], 07/02/2023 08:11:09 hepati tis (A+B+C ) panel, serum [address] (Registration ), [address] [place], [address], 07/02/2023 08:11:09 Referral None record ed. Procedures None record ed. Surgeries None record ed. Imaging US, liver 2024 025 [email or web address] (Scheduling), [address], [place], [address], 02/09/2025 09:55:57 US, liver 2022 023 [facility] (Scheduling), [address], [place], [address], 07/07/2023 10:31:32 Medication Orders Xifaxa n 550 mg tablet 2023 025 [facility]/Pharmacy #[id number], [address] [place], [address], 02/09/2025 09:26:24 Dexila nt 60 mg capsul e, delaye d releas e 2023 024 [facility]acy #[id number], [address] [place], [address], 08/11/2024 11:25:44 simeth icone 125 mg capsul e 2022 023 [place] [address] [id number], [address] [facility] [address], [place], [id number], 02/09/2025 09:26:02 pantop razole 40 mg tablet ,delay ed releas e [address] [facility][id number], [address] [facility] [address], [place], [id number], 02/09/2025 09:22:38 Patient TargetsNo targets recorded. Patient InstructionsNo instructions recorded. Reason for Referral None Reported. Results Created Date Observation Date Name Description Value Unit Range Abnormal Flag Note LastModifiedBy Organization Detail LastModifiedTime 07/15/20 24 07/15/2024 BHAVANI PREP TISSU E bhavani prep tissue NEGATI VE negati ve Not Available [facility]) [address], [place], [address], 07/15/2024 17:33:57 07/07/20 23 07/07/2023 US, liver No observ ation record ed. [facility] [address], [place], [address], 08/28/2023 14:46:27 Result Notes None recorded. Problems Name Problem SNOMED Code Status Onset Date Resolution Date Notes Provider Name and Address Organization Details Recorded Time Cirrhosis of liver Active 2022 Pablito Mccarthy PA-C [address], [place], [address] , [place] - [facility] [place] [facility] [place] 3 09:35:44 Constipation 59001643 Active [address], [place], [address] , [place] - [facility] [place] 3 10:54:34 Thrombocytope cris disorder 090466393 Active [address], [place], [address] , [place] - [facility] [place] 3 10:54:44 Superior mesenteric vein thrombosis 349519753 Active 2022 Pablito Mccarthy PA-C [address], [place], [address] , [place] - [facility] [place] [facility] [place] 3 10:55:43 Gastroesophag eal reflux disease without esophagitis 981301340 Active 2022 Pablito Mccarthy PA-C [address], [place], [address] , [place] - [facility] [place] [facility] [place] 3 09:35:58 Abdominal bloating 318296591 Active 2022 Pablito Mccarthy PA-C [address], [place], [address] , [place] - [facility] [place] 3 09:36:01 Problem Notes None recorded. Procedures Surgical History Date Name Laterality Status Provider Name and Address Organization Details Recorded Time total knee replacement completed [facility] - [facility] & [place] 02/09/2025 09:27:31 [facility] [place] 02/09/2025 09:27:47 operation on stomach completed Kraig Medeiros [place] - [facility] [place] 02/09/2025 09:27:59 Imaging Results Imaging Date Name Status LastModified by Organiz ation Details LastModified Time 07/07/2023 [facility] [address], [place], [address], 08/28/2023 14:46:27 Procedure Notes None recorded. Medical Equipment None Reported. Allergies No known drug allergies Medications Name Sig Start Date Stop Date Status Note LastModified by Organization Details LastModified Time Santyl 250 unit/gram topical ointment APPLY 1 APPLICATI ON ON AFFECTED AREA OF SKIN 1 TIME DAILY 02/09 completed Not Available Not Available Not Available furosemide 40 mg tablet TAKE 1 TABLET BY MOUTH TWICE A DAY FOR EDEMA 02/09 completed Not Available Not Available Not Available atorvastati n 40 mg tablet 02/09 completed Not Available Not Available Not Available methocarbam ol 500 mg tablet 02/09 completed Not Available Not Available Not Available silver sulfadiazin e 1 % topical cream 02/09 completed Not Available Not Available Not Available nystatin 100,000 unit/mL oral suspension SWISH AND SWALLOW 10ML BY MOUTH 4 TIMES DAILY FOR 7 DAYS 02/09 completed Not Available Not Available Not Available doxycycline hyclate 100 mg capsule TAKE 1 CAPSULE BY MOUTH TWICE A DAY FOR 7 DAYS 02/09 completed Not Available Not Available Not Available bumetanide 2 mg tablet 02/09 completed Not Available Not Available Not Available clindamycin HCl 300 mg capsule 02/09 completed Not Available Not Available Not Available ampicillin 500 mg capsule TAKE 1 CAPSULE BY MOUTH EVERY 6 HOURS FOR 7 DAYS *TAKE 1 HOUR BEFORE A MEAL OR 2 HOURS AFTER A MEAL* 02/09 completed Not Available Not Available Not Available hydrocodone 5 mg-acetamin ophen 325 mg tablet TAKE 1 TABLET BY MOUTH EVERY 4 HOURS NEEDED FOR PAIN 02/09 completed Not Available Not Available Not Available ondansetron HCl 4 mg tablet TAKE 1 TABLET BY MOUTH EVERY 8 HOURS NEEDED 02/09 completed Not Available Not Available Not Available prednisone 20 mg tablet TAKE ONE TABLET BY MOUTH ONCE EVERY MORNING WITH FOOD 02/09 completed Not Available Not Available Not Available simethicone 125 mg capsule Take 1 capsule by mouth four times daily, after meals and at bedtime, 30 days 02/09 completed Not Available Not Available Not Available penicillin V potassium 500 mg tablet TAKE 1 TABLET BY MOUTH FOUR TIMES A DAY FOR 7 DAYS 02/09 completed Not Available Not Available Not Available potassium chloride ER 10 mEq tablet,exte nded release TAKE 1 TABLET BY MOUTH DAILY 02/09 completed Not Available Not Available Not Available metronidazo le 500 mg tablet TAKE 1 TABLET BY MOUTH THREE TIMES A DAY FOR 5 DAYS 02/09 completed Not Available Not Available Not Available clopidogrel 75 mg tablet 02/09 completed Not Available Not Available Not Available ciprofloxac in 500 mg tablet TAKE 1 TABLET BY MOUTH TWICE A DAY 02/09 completed Not Available Not Available Not Available sulfamethox azole 800 mg-trimetho prim 160 mg tablet TAKE 1 TABLET BY MOUTH TWICE DAILY FOR 7 DAYS 02/09 completed Not Available Not Available Not Available bisoprolol fumarate 10 mg tablet TAKE 1 TABLET BY MOUTH EVERY DAY 02/09 completed Not Available Not Available Not Available bisoprolol fumarate 5 mg tablet TAKE 1/2 TABLET ORALLY ONCE DAILY active Not Available Not Available No t Available oxycodone-a cetaminophe n 5 mg-325 mg tablet TAKE 1 TABLET BY MOUTH EVERY FOUR HOURS NEEDED FOR MODERATE PAIN 4-6 PAIN SCALE 02/09 completed Not Available Not Available Not Available magnesium oxide 400 mg (241.3 mg magnesium) tablet TAKE 1 TABLET BY MOUTH EVERY DAY 02/09 completed Not Available Not Available Not Available cephalexin 500 mg capsule TAKE 1 CAPSULE BY MOUTH FOUR TIMES A DAY 02/09 completed Not Available Not Available Not Available pantoprazol e 40 mg tablet,jason yed release TAKE 1 TABLET BY MOUTH DAILY 02/09 completed Not Available Not Available Not Available ferrous sulfate 325 mg (65 mg iron) tablet TAKE 1 TABLET BY MOUTH TWICE A DAY 06/25 completed Not Available Not Available Not Available dexamethaso ne 4 mg tablet TAKE 10 TABLETS BY MOUTH EVERY DAY FOR 4 DAYS STARTING 01-08-2402/09 completed Not Available Not Available Not Available prednisone 50 mg tablet TAKE 1 TABLET BY MOUTH ONCE DAILY IN THE MORNING WITH FOOD 02/09 completed Not Available Not Available Not Available hyoscyamine 0.[address] 1 TABLET UNDER THE TONGUE AND ALLOW TO DISSOLVE 3 TIMES A DAY NEEDED 06/25 completed Not Available Not Available Not Available indomethaci n 50 mg capsule TAKE ONE CAPSULE BY MOUTH THREE TIMES DAILY NEEDED 02/09 completed Not Available Not Available Not Available gabapentin 300 mg capsule TAKE 1 CAPSULE BY MOUTH EVERY NIGHT AT BEDTIME 02/09 completed Not Available Not Available Not Available aspirin 81 mg chewable tablet CHEW AND SWALLOW ONE TABLET BY MOUTH DAILY 02/09 completed Not Available Not Available Not Available mupirocin 2 % topical ointment APPLY SMALL AMOUNT TO AFFECTED AREA 2-3 TIMES A DAY 02/09 completed Not Available Not Available Not Available cefuroxime axetil 500 mg tablet TAKE 1 TABLET BY MOUTH EVERY 12 HOURS FOR 10 DAYS 02/09 completed Not Available Not Available Not Available polyethylen e glycol 3350 17 gram/dose oral powder 02/09 completed Not Available Not Available Not Available levofloxaci n 500 mg tablet 02/09 completed Not Available Not Available Not Available oxycodone-a cetaminophe n 7.5 mg-325 mg tablet TAKE 1 TABLET BY MOUTH EVERY 8 HOURS NEEDED FOR PAIN 02/09 completed Not Available Not Available Not Available losartan 100 mg tablet TAKE 1 TABLET BY MOUTH DAILY FOR HIGH BLOOD PRESSURE 02/09 completed Not Available Not Available Not Available spironolact one 50 mg tablet TAKE 1 TABLET BY MOUTH TWICE DAILY 02/09 completed Not Available Not Available Not Available esomeprazol e magnesium 20 mg capsule,del ayed release Take 1 capsule every day by oral route. 02/09 completed Not Available Not Available Not Available oxycodone 5 mg tablet 02/09 completed Not Available Not Available Not Available lactulose 10 gram/15 mL oral solution TAKE 15 ML BY MOUTH 3 TIMES A DAY FOR 30 DAYS. 02/09 completed Not Available Not Available Not Available dexlansopra zole 60 mg capsule,bip hase delayed release TAKE 1 CAPSULE BY MOUTH EVERY DAY active Not Available Not Available No t Available Senexon-S 8.6 mg-50 mg tablet TAKE 1 TABLET BY MOUTH TWICE A DAY NEEDED FOR CONSTIPAT ION 02/09 completed Not Available Not Available Not Available Vitamin D3 125 mcg (5,000 unit) tablet Take 1 tablet every day by oral route. 02/09 completed Not Available Not Available Not Available Xifaxan 550 mg tablet Take 1 tablet twice a day by oral route for 30 days. 02/09 completed Not Available Not Available Not Available sodium,pota ssium,mag sulfates 17.5 gram-3.13 gram-1.6 gram oral soln TAKE 6 OUNCES TWICE A DAY BY ORAL ROUTE DIRECTED FOR 1 DAY, FOR COLONOSCO PY PREP. 02/09 completed Not Available Not Available Not Available Xarelto 15 mg tablet TAKE 1 TABLET BY MOUTH DAILY MUST ADMINISTE R WITH EVENING MEAL active Not Available Not Available No t Available Xarelto 20 mg tablet TAKE 1 TABLET BY MOUTH DAILY 02/09 completed Not Available Not Available Not Available potassium chloride ER 20 mEq tablet,exte nded release TAKE 1 TABLET BY MOUTH ONCE DAILY WITH FOOD. 06/25 completed Not Available Not Available Not Available Eliquis DVT-PE Treatment 30-Day Starter 5 mg (74 tablets) in dose pack TAKE 1 TABLET BY MOUTH TWICE DAILY 02/09 completed Not Available Not Available Not Available Vitals Date Recorded Body height Body mass index (BMI) Body weight Body temperature Heart rate Oxygen saturation Oxygen saturation in Arterial blood by Pulse oximetry Heart rate Systolic blood pressure Diastolic blood pressure Provider Name and Address Organization Details Last Updated DateTime 3 187.96 cm 29.8 kg/m2 950984. 51 g 97.5 [degF] 72 /min 96 % 96 % 69 /min 104 mm[Hg] 67 mm[Hg] Precious Faye [facility] [place] & [place] 3 09:10:10 Date Recorded Body weight Body mass index (BMI) Body height Heart rate Body temperature Oxygen saturation Oxygen saturation in Arterial blood by Pulse oximetry Heart rate Systolic blood pressure Diastolic blood pressure Provider Name and Address Organization Details Last Updated DateTime 4 759596. 2 g 29.7 kg/m2 187.96 cm 109 /min 98.1 [degF] 95 % 95 % 100 /min 164 mm[Hg] 76 mm[Hg] Precious Faye [facility] [place] [facility] [place] 4 10:29:44 Date Recorded Body height Body mass index (BMI) Body weight Body temperature Heart rate Systolic blood pressure Diastolic blood pressure Provider Name and Address Organization Details Last Updated DateTime 4 187.96 cm 29.7 kg/m2 619484. 56 g 97.3 [degF] 75 /min 146 mm[Hg] 75 mm[Hg] Lisha Shell [facility] [place] [facility] [place] 4 09:10:59 Date Recorded Body height Body mass index (BMI) Body weight Heart rate Systolic blood pressure Diastolic blood pressure Provider Name and Address Organization Details Last Updated DateTime 5 187.96 cm 28.8 kg/m2 445202. 49 g 73 /min 133 mm[Hg] 73 mm[Hg] Kraig Clark ed [facility] [place] [facility] [place] 5 09:28:08 Social History Question Answer Notes LastModified by Organizat ion Details LastModified Time Tobacco Smoking Status Never Smoker Precious Faye [facility], [facility] [place] 06/25/2023 09:09:55 What Is Your Level Of Alcohol Consumption? None [email or web address] Information not available 06/25/2023 What Is Your Level Of Caffeine Consumption? Occasional Information not available 06/25/2023 Do You Use Any Illicit Or Recreational Drugs? No [email or web address] Information not available 06/25/2023 Do You Or Have You Ever Used Any Other Forms Of Tobacco Or Nicotine? No [email or web address] Information not available 06/25/2023 Sex: Unknown Functional Status None recorded. Mental Status None recorded. Family History Relationship Description Onset Age of this Age Resolved Age Notes LastModified by Organization Details LastModified Time Mother Disorder of endocrine system pt. added direct ly (07/22) [email or web address] Not available 07/22/2023 14:40:34 Mother Myocardial infarction pt. added direct ly (07/22) [email or web address] Not available 07/22/2023 14:40:56 Brother Disorder of endocrine system pt. added direct ly (07/22) [email or web address] Not available 07/22/2023 14:40:34 Brother Myocardial infarction pt. added direct ly (07/22) [email or web address]-13 Not available 07/22/2023 14:40:57 Medical History No medical history recorded. Past Encounters Encounter ID Performer Location Encounter Start Date Encounter Closed Date Diagnosis/Indication Diagnosis SNOMED-CT Code Diagnosis ICD10 Code Diagnosis Note [id number] Saeid Gilman MD [facility] [place] [id number] 2 06/01/2023 08:33:54 06/01/2023 13:05:24 [id number] Pablito Mccarthy PA-C [facility] [place] [address] 2 06/25/2023 08:46:19 06/25/2023 09:47:01 Cirrhosis of liver 38881054 K74.60 Constipation 50710419 K5 9.00 Thrombocyt openic disorder 698564021 D69.6 Superior m esenteric vein thrombosis 958975783 K55.059 History of gastrointestinal bleed 394604726 Z87.19 [id number] Pablito Mccarthy PA-C [facility] [address] [address] 07/23/2023 09:01:42 07/23/2023 10:12:53 Cirrhosis of liver 84403295 K74.60 Constipation 24017551 K5 9.00 Thrombocyt openic disorder 297456455 D69.6 Superior m esenteric vein thrombosis 417430055 K55.059 History of gastrointestinal bleed 452442932 Z87.19 Gastroesop hageal reflux disease without esophagitis 553305910 K21.9 Abdominal bloating 14738 9008 R14.0 [id number] Saeid Gilman MD [facility] [address] [address] 08/11/2024 10:19:21 08/11/2024 11:42:38 Cirrhosis of liver 39503321 K74.60 Constipation 62727856 K5 9.00 Thrombocyt openic disorder 044453925 D69.6 Superior m esenteric vein thrombosis 457039222 K55.059 History of gastrointestinal bleed 261529763 Z87.19 Gastroesop hageal reflux disease without esophagitis 455267370 K21.9 Abdominal bloating 92499 9008 R14.0 Hepatic encephalopathy 48882208 K76.82 Ascites 813022219 R18.8 [id number] Saeid Gilman MD [facility] [place] [id number] 2 10/13/2024 08:57:09 10/13/2024 09:43:50 Cirrhosis of liver 49570568 K74.60 Constipation 53086787 K5 9.00 Thrombocyt openic disorder 640966869 D69.6 Superior m esenteric vein thrombosis 513150237 K55.059 History of gastrointestinal bleed 248367174 Z87.19 Gastroesop hageal reflux disease without esophagitis 657898627 K21.9 Abdominal bloating 19780 9008 R14.0 Hepatic encephalopathy 64378846 K76.82 Ascites 489012192 R18.8 [id number] Saeid Gilman MD [facility] [place] [id number] 2 02/09/2025 09:08:06 02/09/2025 09:52:00 Cirrhosis of liver 88169034 K74.60 Constipation 17061295 K5 9.00 Thrombocyt openic disorder 518578051 D69.6 Superior m esenteric vein thrombosis 483785187 K55.059 History of gastrointestinal bleed 981774112 Z87.19 Gastroesop hageal reflux disease without esophagitis 489147763 K21.9 Abdominal bloating 46215 9008 R14.0 Hepatic encephalopathy 72326544 K76.82 Ascites 590041901 R18.8 Alcoholic cirrhosis 4200 56653 K70.31 Health Concerns Section Related Observation LastModified by Organization Detai ls LastModified Time None Recorded Concern Status LastModified by Organization Details LastModified Time None Recorded Advance Directives Directive None Recorded Payers Encounter Date Sequence Insurance Name Policy Number Policy Hidalgo Covered Member ID Hidalgo Member ID Guarantor Name 06/25/2023 2 [facility] [employer] EM[employer]S - [employer] [place] (PPO) Halie Banda [id number] Solo Ambrose 07/23/2023 2 [facility] EM[employer] - [place] Halie Banda [id number] Solo Ambrose 08/11/2024 2 [facility] EM[employer] CLAIM[employer] - [place] Halie Banda [id number] Solo Ambrose 08/11/2024 1 [place] Solo Ambrose [id number] Solo Ambrose 10/13/2024 1 [place] Solo Ambrose [id number] Solo Ambrose 10/13/2024 2 [place] [id number] Solo Ambrose [id number] Solo Ambrose 02/09/2025 1 [place] Solo Ambrose [id number] Solo Ambrose 02/09/2025 2 [place] [id number] Solo Ambrose [id number] Solo Ambrose Notes Date Note Type Note Provider Name and Address Organization Details Recorded Time 06/25/2023 text/html Mr. Halie vickers s a 63-year-old male who was referred by Dr. Girard for PillCam evaluation in evaluation of reported GI bleeding. This was performed on 06/01/23 and showed no source of bleeding. Today, the patient presents for follow-up for that exam, but also to discuss prior finding of cirrhosis on CT scan from last July. He states he is in need of a left knee replacement, but cannot have the procedure done due to profound thrombocytopenia. He states these have been as low as 17. He was seeing hematology in [place], [place] and was placed on steroids which improved his platelet count to over 100. Unfortunately, he was told he cannot have knee replacement on steroid therapy either. He denies any recent signs of GI blood loss. He reports a history of moderate to heavy alcohol consumption, but states he has not had a drink in 2 months. 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 He states he was on a blood thinner in the past, but this was stopped. His primary complaint today is constipation and lower abdominal discomfort. This is improved with bowel movements. Pablito Mccarthy PA-C [address], [place], [address], [place] - [place] [facility] [place] 06/25/2023 10:56:47 07/23/2023 text/html PREVIOUS ( 3): Mr. Ambrose is a 63-year-old male who was referred by Dr. Girard for PillCam evaluation in evaluation of reported GI bleeding. This was performed on 06/01/23 and showed no source of bleeding. Today, the patient presents for follow-up for that exam, but also to discuss prior finding of cirrhosis on CT scan from last July. He states he is in need of a left knee replacement, but cannot have the procedure done due to profound thrombocytopenia. He states these have been as low as 17. He was seeing hematology in [place] and was placed on steroids which improved his platelet count to over 100. Unfortunately, he was told he cannot have knee replacement on steroid therapy either. He denies any recent signs of GI blood loss. He reports a history of moderate to heavy alcohol consumption, but states he has not had a drink in 2 months. 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 He states he was on a blood thinner in the past, but this was stopped. His primary complaint today is constipation and lower abdominal discomfort. This is improved with bowel movements. CURRENT (07/23/23): Mr. Ambrose presents to the office today for follow-up regarding cirrhosis, anemia, and thrombocytopenia. Recent lab workup for potential causes of liver disease was essentially unremarkable. He states his alcohol consumption has been minimal recently. He complains of abdominal bloating and indigestion. He does not feel that Nexium is working as well as it should. He reports regular bowel movements. I spent a total of 22 minutes during this real-time clinical encounter that was initiated by the patient which started at 0914 and ended at 0936. Consent was obtained to engage in telephonic service. Greater than 50% of the time spent was devoted to counseling and coordinating care including review of patient record, patient lab data and studies as well as discussing diagnostic evaluation and workup, planned therapeutic intervention and further disposition of care. Pablito Mccarthy PA-C [address], [place], [address], [place] [facility] [place] & [place] 07/23/2023 18:04:40 08/11/2024 text/html PREVIOUS ( 3): Mr. Ambrose is a 63-year-old male who was referred by Dr. Girard for PillCam evaluation in evaluation of reported GI bleeding. This was performed on 06/01/23 and showed no source of bleeding. Today, the patient presents for follow-up for that exam, but also to discuss prior finding of cirrhosis on CT scan from last July. He states he is in need of a left knee replacement, but cannot have the procedure done due to profound thrombocytopenia. He states these have been as low as 17. He was seeing hematology in [place] and was placed on steroids which improved his platelet count to over 100. Unfortunately, he was told he cannot have knee replacement on steroid therapy either. He denies any recent signs of GI blood loss. He reports a history of moderate to heavy alcohol consumption, but states he has not had a drink in 2 months. 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 He states he was on a blood thinner in the past, but this was stopped. His primary complaint today is constipation and lower abdominal discomfort. This is improved with bowel movements.PREVIOUS (07/23/23): Mr. Ambrose presents to the office today for follow-up regarding cirrhosis, anemia, and thrombocytopenia. Recent lab workup for potential causes of liver disease was essentially unremarkable. He states his alcohol consumption has been minimal recently. He complains of abdominal bloating and indigestion. He does not feel that Nexium is working as well as it should. He reports regular bowel movements. CURRENT (08/11/24): Mr. Ambrose returns today for follow up Of cirrhosis. Also has anemia and profound thrombocytopenia. He is followed by Dr. Bermudez. Dr. Bermudez is entertaining possibly ITP regarding his significant thrombocytopenia. This is not thought to be completely secondary to portal hypertension. EGD and colonoscopy were performed on July 15, 2024. There was no evidence of esophageal or gastric varices. Colonoscopy normal. Ten year follow-up recommended. Previous capsule endoscopy negative. Patient reports bilateral lower extremity edema that is worse on the right side due to previous DVT.Patient reports recent abdominal ultrasound was positive for ascites. Family reports that the patient has been profoundly confused on 4 separate occasions over the past several months. He tends to forget where he is going when he is driving. Sleep cycle is altered. Saeid Gilman MD [address], [place], [address], [place] [facility] [place] 08/11/2024 12:24:41 10/13/2024 text/html PREVIOUS ( 3): Mr. Ambrose is a 63-year-old male who was referred by Dr. Girard for PillCam evaluation in evaluation of reported GI bleeding. This was performed on 06/01/23 and showed no source of bleeding. Today, the patient presents for follow-up for that exam, but also to discuss prior finding of cirrhosis on CT scan from last July. He states he is in need of a left knee replacement, but cannot have the procedure done due to profound thrombocytopenia. He states these have been as low as 17. He was seeing hematology in [place] and was placed on steroids which improved his platelet count to over 100. Unfortunately, he was told he cannot have knee replacement on steroid therapy either. He denies any recent signs of GI blood loss. He reports a history of moderate to heavy alcohol consumption, but states he has not had a drink in 2 months. 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 He states he was on a blood thinner in the past, but this was stopped. His primary complaint today is constipation and lower abdominal discomfort. This is improved with bowel movements.PREVIOUS (07/23/23): Mr. Ambrose presents to the office today for follow-up regarding cirrhosis, anemia, and thrombocytopenia. Recent lab workup for potential causes of liver disease was essentially unremarkable. He states his alcohol consumption has been minimal recently. He complains of abdominal bloating and indigestion. He does not feel that Nexium is working as well as it should. He reports regular bowel movements. PREVIOUS (08/11/24): Mr. Ambrose returns today for follow up Of cirrhosis. Also has anemia and profound thrombocytopenia. He is followed by Dr. Bermudez. Dr. Bermudez is entertaining possibly ITP regarding his significant thrombocytopenia. This is not thought to be completely secondary to portal hypertension.EGD and colonoscopy were performed on July 15, 2024. There was no evidence of esophageal or gastric varices. Colonoscopy normal. Ten year follow-up recommended.Previous capsule endoscopy negative.Patient reports bilateral lower extremity edema that is worse on the right side due to previous DVT.Patient reports recent abdominal ultrasound was positive for ascites.Family reports that the patient has been profoundly confused on 4 separate occasions over the past several months. He tends to forget where he is going when he is driving. Sleep cycle is altered. CURRENT (10/13/24) Mr. Ambrose presents today for follow up. he is doing very well. His anemia and thrombocytopenia have recently improved. He has had improved lower extremity edema and in improvement in abdominal girth. Unfortunately, Xifaxan was unaffordable at 1000 nausea per month. He was then prescribed lactulose. However, he was intolerant due to profound diarrhea. He otherwise feels well. Saeid Gilman MD [address] [facility], [place], [address], [facility] - [place] & [place] 10/13/2024 10:41:59 02/09/2025 text/html PREVIOUS ( 3): Mr. Ambrose is a 63-year-old male who was referred by Dr. Girard for PillCam evaluation in evaluation of reported GI bleeding. This was performed on 06/01/23 and showed no source of bleeding. Today, the patient presents for follow-up for that exam, but also to discuss prior finding of cirrhosis on CT scan from last July. He states he is in need of a left knee replacement, but cannot have the procedure done due to profound thrombocytopenia. He states these have been as low as 17. He was seeing hematology in [place] and was placed on steroids which improved his platelet count to over 100. Unfortunately, he was told he cannot have knee replacement on steroid therapy either. He denies any recent signs of GI blood loss. He reports a history of moderate to heavy alcohol consumption, but states he has not had a drink in 2 months. 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 He states he was on a blood thinner in the past, but this was stopped. His primary complaint today is constipation and lower abdominal discomfort. This is improved with bowel movements.PREVIOUS (07/23/23): Mr. Ambrose presents to the office today for follow-up regarding cirrhosis, anemia, and thrombocytopenia. Recent lab workup for potential causes of liver disease was essentially unremarkable. He states his alcohol consumption has been minimal recently. He complains of abdominal bloating and indigestion. He does not feel that Nexium is working as well as it should. He reports regular bowel movements.PREVIOUS (08/11/24): Mr. Ambrose returns today for follow up Of cirrhosis. Also has anemia and profound thrombocytopenia. He is followed by Dr. Bermudez. Dr. Bermudez is entertaining possibly ITP regarding his significant thrombocytopenia. This is not thought to be completely secondary to portal hypertension. CURRENT (02/09/25) Mr. Ambrose presents today for follow up. He is doing well. His anemia has resolved. He is receiving IV iron. No visible blood. No confusion. Mild lower extremity edema. No increase in abdominal girth. Saeid Gilman MD [address], [place], [address], [facility] - [place] & [place] 02/09/2025 10:06:18
--- OUTSIDE RECORDS SUMMARY | 2025-02-09 21:43 | XMS_ITS | Continuity of Care Document ---
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 Bermudez. 3) Constipation: Miralax as needed. Start Simethicone for bloating. 4) Thrombocytopenia : Profound. Patient follows with Dr. Bermudez. Possible [...] for HCC. Patient to perform ultrasound at [facility]. Order given to patient today. Not [...] [facility], [address], [address], [place], [address], 02/09/2025 09:47:27 CBC w/ auto diff 2024 025 [facility], [address], [address], [place], [address], 02/09/2025 09:47:27 afp (alpha -fetop rotein ) tumor marker , serum or plasma 2024 025 [facility], [address], [address], [place], [address], 02/09/2025 09:47:27 PT/PTT , plasma 2024 025 KENT [facility], [address], [address], [place], [address], 02/09/2025 09:47:27 Referral None record ed. Procedures None record ed. Surgeries None record ed. Imaging US, liver 2024 025 [email or web address] (Scheduling), [address], [place], [address], 02/09/2025 09:55:57 Medication Orders None record ed. Patient TargetsNo targets recorded. Patient InstructionsNo instructions recorded. Reason for Referral None Reported. Problems Name Problem SNOMED Code Status Onset Date Resolution Date Notes Provider Name and Address Organization Details Recorded Time Cirrhosis of liver 34157656 Active [address], [place] [address] , [place] - [facility] & [place] 3 09:35:44 Constipation 92752683 Active [address], [address] - [facility] & [place] 3 10:54:34 Thrombocytope cris disorder 774052684 [place] [address] [place] [address] , [facility] - [facility] & [place] 3 10:54:44 Superior mesenteric vein thrombosis 484876798 Active [address], [place] [address] , [facility] & [place] 3 10:55:43 Gastroesophag eal reflux disease without esophagitis 728543335 Active [address], [place] [address] , [facility] - [facility] & [place] 3 09:35:58 Abdominal bloating 297562664 Active [address] [address] , [facility] & [place] 3 09:36:01 Problem Notes None recorded. Procedures Surgical History Date Name Laterality Status Provider Name and Address Organization Details Recorded Time total knee replacement completed Kraig Medeiros [facility] & [place] 02/09/2025 09:27:31 total shoulder replacement completed Kraig [facility] - [facility] & [place] 02/09/2025 09:27:47 operation on stomach completed Kraig [facility]ART - KATELYNNT [facility] & [place] 02/09/2025 09:27:59 Imaging Results None recorded. Procedure Notes None recorded. Medical Equipment None [...] completed Not Available Not Available Not Available Graciela DVT-PE Treatment 30-Day Starter 5 mg (74 tablets) in dose pack TAKE 1 TABLET BY MOUTH TWICE DAILY 02/09 completed Not Available Not Available Not Available Vitals Date Recorded Body height Body mass index (BMI) Body weight Heart rate Systolic blood pressure Diastolic blood pressure Provider Name and Address Organization Details Last Updated DateTime 187.96 cm 28.8 kg/m2 634914. 49 g 73 /min 133 mm[Hg] 73 mm[Hg] Kraig ward [place] - [facility] & [place] 09:28:08 Social History Question Answer Notes LastModified by Organizat ion Details LastModified Time Tobacco Smoking Status Never Smoker Precious mirza, SLY Tsai GARO [facility] & [place] 06/25/2023 09:09:55 What Is Your Level Of Alcohol Consumption? None [email or web address] Information not available 06/25/2023 What Is Your Level Of Caffeine Consumption? Occasional [email or web address] Information not available 06/25/2023 Do You Use Any Illicit Or Recreational Drugs? No [email or web address] Information not available 06/25/2023 Do You Or Have You Ever Used Any Other Forms Of Tobacco Or Nicotine? No [email or web address] Information not available 06/25/2023 Sex: Unknown Functional [...] SNOMED-CT Code Diagnosis ICD10 Code Diagnosis Note [id number] Saeid Gilman MD [facility] [address] [address] 02/09/2025 09:08:06 02/09/2025 09:52:00 Cirrhosis of liver 07576887 K74.60 Constipation 33075194 K5 9.00 Thrombocyt openic disorder 508567739 D69.6 Superior m esenteric vein thrombosis 948688250 K55.059 History of gastrointestinal bleed 349513837 Z87.19 Gastroesop hageal reflux disease without esophagitis 930229732 K21.9 Abdominal bloating 59368 9008 R14.0 Hepatic encephalopathy 55627662 K76.82 Ascites 367754147 R18.8 Alcoholic cirrhosis 4200 12523 K70.31 Health Concerns Section Related Observation LastModified by Organization Detai ls LastModified Time None Recorded Concern Status LastModified by Organization Details LastModified Time None Recorded Payers Encounter Date Sequence Insurance Name Policy Number Policy Hidalgo Covered Member ID Hidalgo Member ID Guarantor Name 02/09/2025 1 [place] Solo Ambrose [id number] Solo Ambrose 02/09/2025 2 [place] [id number] Solo Ambrose [id number] Solo Ambrose Notes Date Note Type Note Provider Name and Address Organization Details Recorded Time 02/09/2025 text/html PREVIOUS (06/25/23): Mr. Ambrose is a 63-year-old male who [...] as 16. He was seeing hematology in [place], [place] and was placed on steroids which [...] increase in abdominal girth. Saeid Gilman MD [address] [facility] [facility] [address], [place], [address], [place] - [facility] [place] [facility] [place] 02/09/2025 10:06:18
--- OUTSIDE RECORDS SUMMARY | 2025-02-09 21:43 | XMS_ITS | Clinical Summary ---
Author Organization [facility] , [facility] Address [address] [place] [address] Phone Care Team Providers Care Traffic Director Name Role Phone Unavailable Unavailable Unavailable Reason for Visit and Chief Complaint The Chief Complaint is: Left knee pain Problems Includes: Problems addressed during this encounter and other active Problems All Visits Onset Date Resolved Date Provider Condition S tatus Joint Pain in the Right Knee 03/01/2024 Nhi FLYNN Active Last Documented On 4 11:30AM ; [facility], [facility] Joint Pain in the Left Knee 03/01/2024 Nhi FLYNN Active Last Documented On 4 11:31AM ; [facility], [facility] Plan of Treatment He has end-stage osteoarthritis in his left knee. He has had appropriate conservative treatment that is allowable for him and his medical conditions. His only option here is knee replacement. However he does have a risks with his heart his liver and his blood. He has a low platelet which apparently response to steroids. He has had heart stents placed. We will try and get appropriate medical clearance and if so then he would be a candidate for total knee replacement. We explained risks which include but are not limited to, bleeding, infection, blood clot and incomplete pain relief and the possibility of further surgery in the future. We discussed rehabilitation and the rapid mobilization protocol. He understands and would like to proceed. - Last Documented On 01/22/2024 9:15AM ; [facility], [facility] Instructions to patient Lose weight Last Documented On 4 8:41AM ; [facility], [facility] Assessments Includes: Assessments from this encounter Findings - Overweight - Last Documented On 01/22/2024 9:15AM ; [facility], [facility] Instructions Includes: Instructions from this encounter Instructions to patient Lose weight Last Documented On 4 8:41AM ; [facility], [facility] Medical Equipment - Implanted Devices Includes: Current Devices No Medical Equipment Recorded Medications Includes: Medications discussed during this encounter and other current Medications Current Medications (continue as prescribed) Xarelto 20 MG Oral Tablet 01/07/2024 Provider: Diagnosis: Last Documented On 4 8:40AM By Timetrasif Lee ; [facility], [facility] Potassium Chloride ER 10 MEQ Oral Tablet Extended Release 12/22/2023 Provider: MILAGROS BLANK MD Diagnosis: Last Documented On 4 8:40AM By Timetria Maxberry ; [facility], [facility] Losartan Potassium 100 MG Oral Tablet 12/18/2023 Pro vider: Diagnosis: Last Documented On 4 8:40AM By Timetria Maxberry ; [facility], [facility] Furosemide 40 MG Oral Tablet 11/20/2023 Provider: KAELYN LOWE MD Diagnosis: Last Documented On 4 8:40AM By Timetria Maxsondra ; [facility], [facility] Bisoprolol Fumarate 10 MG Oral Tablet 11/04/2023 Pro vider: Diagnosis: Last Documented On 4 8:40AM By Timetria Rosa ; [facility], [facility] Medications Administered Includes: Administered Medications from this encounter No Administered Medications Recorded Vital Signs Includes: Vital Signs from this encounter Vital Name 01/22/2024 08:40A Height (in) 73 Weight (lb) 230 Body Mass Index 30.3 Body Surface Area 2.3 Note: tm Last Documented: On 01/22/2024 8:40AM ; [facility], [facility] Results Includes: Results discussed during this encounter No Results Recorded For Specified Dates History of Present Illness Includes: History of Present Illness from this encounter HPI KAELYN KAN is a 63 year old male. - Allergy list reviewed - Problem list reviewed - Medication list reviewed Kaelyn is here today for a new problem with his left knee. He has been having gradually increasing pain in this knee over a year or more. 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 He is having troubles with day-to-day activity. It hurts with every step. There are problems sleeping. There are problems going up and down stairs and has to use a railing. Pain with getting out of a chair and sometimes has to use 2 arms. He was seen elsewhere and surgery was declined because he has a platelet problem. He has had injections which have not helped. He can not take anti-inflammatories because of the platelets. He has had heart stents and has cirrhosis of the liver. Social History Description Last Updated Tobacco non-user 01/22/2024 Last Documented On 4 9:15AM ; [facility] Smoking Status Unknown Procedures and Surgical History Includes: Procedures from this encounter Procedures Code Diagnosis Performing Provider Service L ocation Service Date use of tobacco assessment performed 1000F Last Documented On 4 8:41AM ; [facility] review of medications documented 1160F Last Documented On 4 8:41AM ; [facility] Medical History Includes: Medical History addressed during [...] Location Date Check-In Time Check-Out Time Diagnosis Physician Specified Duarte Lozada MD [facility] 01/22/20 24 8:03AM 9:13AM Overweight Insurance Includes: Active Insurance Policies Plan Name Member ID Group # Subscriber Relationship Effect leigh Dates - [facility] [id number] KAELYN KAN Self Clinical Notes Includes: Clinical Notes from this encounter * Progress note Date Encounter Last Documented by 01/22/2024 Physician Specified Last leonie ford on 01/22/2024; 9:15 AM, Duarte Lozada MD; [facility] Chief Complaint The Chief Complaint is: Left knee pain. Referred Here Referred by. History of Present Illness KAELYN KAN is a 63 year old male. - Allergy list reviewed - Problem list reviewed - Medication list reviewed Kaelyn is here today for a new problem with his left knee. He has been having gradually increasing pain in this knee over a year or more. 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 He is having troubles with day-to-day activity. It hurts with every step. There are problems sleeping. There are problems going up and down stairs and has to use a railing. Pain with getting out of a chair and sometimes has to use 2 arms. He was seen elsewhere and surgery was declined because he has a platelet problem. He has had injections which have not helped. He can not take anti-inflammatories because of the platelets. He has had heart stents and has cirrhosis of the liver. Current Medication - Bisoprolol Fumarate 10 MG Oral Tablet 90 days, 0 refills - Bumetanide 2 MG Oral Tablet 30 days, 0 refills - dexAMETHasone 4 MG Oral Tablet 4 days, 0 refills - Eliquis DVT/PE Starter Pack 5 MG Oral Tablet Therapy Pack 37 days, 0 refills - Furosemide 40 MG Oral Tablet 90 days, 0 refills - Losartan Potassium 100 MG Oral Tablet 90 days, 0 refills - metroNIDAZOLE 500 MG Oral Tablet 5 days, 0 refills - Nystatin 110738 UNIT/ML Mouth/Throat Suspension 7 days, 0 refills - Ondansetron HCl 4 MG Oral Tablet 15 days, 0 refills - Potassium Chloride ER 10 MEQ Oral Tablet Extended Release 30 days, 0 refills - Potassium Chloride ER 10 MEQ Oral Tablet Extended Release 30 days, 0 refills - predniSONE 50 MG Oral Tablet 30 days, 0 refills - Xarelto 20 MG Oral Tablet 30 days, 0 refills Social History Tobacco use: Tobacco non-user. Allergies - No Known Allergies Physical Findings - Vitals taken 01/22/2024 08:40 am tm Height 73 in 60 - 80 Weight 230 lbs 123 - 215 Body Mass Index 30.3 kg/m2 Body Surface Area 2.3 m2 There is a left-sided antalgic gait. He has normal mood, affect and orientation. He has a well-groomed appearance. Chest is clear, heart is clear, lungs are clear. The knee has some varus alignment. There is full extension and almost full flexion. Complete stability of the cruciate and collateral ligaments. No effusion. No redness or heat. Skin is intact. Grossly normal motor and sensory function. Grossly normal vascular status. there is tenderness along the medial joint line. There is medial pseudo-laxity in a lot of tenderness along the medial joint line. Tests Radiographs of the knee show osteophytes in all 3 compartments. There is complete narrowing in the medial compartment. Assessment - Overweight Counseling/Education - Lose weight Plan He has end-stage osteoarthritis in his left knee. He has had appropriate conservative treatment that is allowable for him and his medical conditions. His only option here is knee replacement. However he does have a risks with his heart his liver and his blood. He has a low platelet which apparently response to steroids. He has had heart stents placed. We will try and get appropriate medical clearance and if so then he would be a candidate for total knee replacement. We explained risks which include but are not limited to, bleeding, infection, blood clot and incomplete pain relief and the possibility of further surgery in the future. We discussed rehabilitation and the rapid mobilization protocol. He understands and would like to proceed. Practice Management Use of tobacco assessment performed Review of medications documented. Notes This dictation was done with voice recognition software and may contain errors and omissions.
--- OUTSIDE RECORDS SUMMARY | 2025-02-09 21:43 | XMS_ITS | Data Portability ---
Author Organization [facility] J[facility] Vilchis [place] [facility] Address [address] [place] [address] Assessment Encounter Date Assessment Date Assessment LastModified by Organization Details LastModified Time 12/24/2017 12/24/2017 I will have him see Dr. Villegas for further evaluation to see what he recommends, and then have him work on some mobilization, range of motion or to discuss surgery with Dr. Villegas. He will see Dr. Villegas and return to see me if needed. CC: Irvin Aquino MD [email or web address] Not available 12/25/2017 07:56:07 Plan of Treatment Reminders Order Date Submit Date Provider Last Modified By Organization Details Last Modified Time Details Appointments None recorded. Lab None recorded. Referral None recorded. Procedures None recorded. Surgeries None recorded. Imaging XR, arthrogra m, shoulder 2017 018 [facility] [place], [address] , [place], [address], 8 09:17:56 Medication Orders Voltaren 1 % topical gel 2017 018 INTERFACE [facility] #[id number], [address] [address] Elissa Rezaana [place], [id number], 8 10:08:42 Patient TargetsNo targets recorded. Patient Instructions Encounter Date Encounter Id Patient Instructions Last Modified By Organization Details Last Modified Time 12/24/2017 [id number] shoulder arthrit is: exercises [email or web address] Not available 12/24/2017 16:41:19 We did review the regular x-ray. It shows a well positioned hemiarthroplasty on the humeral side, although there may be a little bit of subsidence on the calcar with actually some thickening at the very tip. The major problem is it appears there is some glenoid erosion on the superior aspect of the glenoid. This would go along with the calcium deposit at the base of the prosthesis and the longevity. We had a long discussion about treatment involving the appropriate ways of evaluating this. He wishes to do something that would improve his range of motion, and improve his capability of using the arm. I am a little concerned about the possible glenoid erosion. I will ask him to see Dr. Villegas for evaluation and probably CT scan to document the degree of erosion on the glenoid side. If there is not a whole lot, then perhaps injection may give him some relief, although injections are usually not indicated in this particular situation. [email or web address] Not available 12/25/2017 07:56:08 12/29/2017 [id number] shoulder arthrit is: exercises [email or web address] Not available 12/29/2017 10:07:12 Reason for Referral None Reported. Results Created Date Observation Date Name Description Value Unit Range Abnormal Flag Note LastModifiedBy Organization Detail LastModifiedTime 12/24/19 18 12/24/2017 XR, shoul aishwarya, 2 or more view Teena song [facility] [address] [place] [address] Anthony garcia Name: KAELYN garcia : [address]59 Glor[address] garcia 80 Orderi ng Provid er: W DARYA THOMAS EXAM DATE: 2017 EXAM: XR LT SHOULD ER COMPLE TE RADIOG RAPHIC VIEWS: 2 view left should er COMPAR MEKHI: None. HISTOR Y: Should er pain para findin gs: Previo us left should er hemiar thropl asty. The hardwa re shows no compli cation . There is no indica tion of loosen ing presen t and there is no fractu re noted. There is mild degene rative change of the acromi oclavi cular joint. IMPRES FRANCISCA: Uncomp licate d appear ing left should er arthro plasty proced ure Interp reted By: Kaelyn Sahu MD Electr onical ly Signed By: Kaelyn Sahu MD on 018 2:57 PM [email or web address] [facility] [place] [address], [place], [address], 12/24/2017 16:31:00 12/29/19 18 12/29/2017 rf lt shoul aishwarya stero id injec tion [address] [address] Patien t Name: KAELYN KRAUS Patien t : 959 Patien t 80 Orderi ng Provid er: CHRISTIANO VILLEGAS EXAM DATE: 2017 EXAM: RF LT SHOULD ER STEROI D INJECT ION HISTOR Y: Left should er pain. TECHNI QUE: The patien t was positi oned supine on the fluoro scopy table and an entry site was locali zed under fluoro scopic guidan ce. The skin was preppe d and draped in the usual steril e fashio n. 1% Lidoca ine was used to anesth etize the skin and subcut aneous tissue s. A 22-gau ge spinal needle was introd uced into the anteri or aspect of the glenoh umeral joint. The needle tip positi on within the glenoh umeral joint was confir med with 2 cc Isovue -300. Subseq uently , 2 cc dexame thason e (4 mg/mL) and 6cc bupiva ed 0.5% were introd uced into the joint. The needle was remove d in the patien t tolera logan the proced ure well. 2ml of a 50ml vial of Isovue 300 was inject ed into the patien t. The remain ing 48ml of Isovue 300 was wasted and discar ded. [facility] [id number] 315-30 [facility] [place] [address]- 165-05 [facility] [place] [id number]- 1610-5 0 IMPRES FRANCISCA: 1. The patien t is status post left should er arthro gram with dexame thason e and bupiva ed inject ion withou t compli cation . Interp reted By: Yo castillo MD Electr onical ly Signed By: Yo castillo MD on 018 12:[address] [facility] [address] [place], [address], 12/29/2017 18:14:15 Result Notes None recorded. Procedures Surgical History Date Name Laterality Status Provider Name and Address Organization Details Recorded Time Orthopedic Surgery completed Hiwot Kevin [facility] 12/24/2017 14:09:47 Imaging Results Imaging Date Name Status LastModified by Organiz ation Details LastModified Time 12/24/2017 XR, shoulder, 2 or more view completed [email or web address] [facility] [place] [address] , [place], [address], 12/24/2017 16:31:00 12/29/2017 rf lt shoulder steroid injection completed [email or web address] [facility] [address] [place], [address], 12/29/2017 18:14:15 Procedure Notes None recorded. Medical Equipment None Reported. Allergies No known drug allergies Medications Name Sig Start Date Stop Date Status Note LastModified by Organization Details LastModified Time losartan active Not Available Not Avai lable Not Available indomethacin active Not Available Not Available Not Available Voltaren 1 % topical gel APPLY 2 GRAM TO THE AFFECTED AREA(S) BY TOPICAL ROUTE 4 TIMES PER DAY 2017 active Not Available Not Available Not Avai lable metoprolol huitron-hydrochloro thiaz active Not Available Not Available Not Available Vitals Date Recorded Body height Body mass index (BMI) Body weight Systolic blood pressure Diastolic blood pressure Provider Name and Address Organization Details Last Updated DateTime 12/24/2017 187.96 cm 29.5 kg/m2 051320.2 5 g 142 mm[Hg] 82 mm[Hg] Hiwot Kevin [facility] 8 14:07:23 Date Recorded Body height Body mass index (BMI) Body weight Systolic blood pressure Diastolic blood pressure Provider Name and Address Organization Details Last Updated DateTime 12/29/2017 187.96 cm 29.5 kg/m2 481203.2 5 g 165 mm[Hg] 104 mm[Hg] Mariel Kevin [facility] 8 09:48:14 Social History Question Answer Notes LastModified by Organizat ion Details LastModified Time Tobacco Smoking Status [facility] 12/24/2017 14:09:39 What Was The Date Of Your Most Recent Tobacco Screening? 12/29/2017 Information n ot available 12/20/2019 Sex: Unknown Functional Status None recorded. Mental Status None recorded. Family History Relationship Description Onset Age of this Age Resolved Age Notes LastModified by Organization Details LastModified Time Mother Diabetes mellitus [email or web address] Not available 2017 14:09:09 Unspecified Relation Myocardial infarction [email or web address] Not available 12/24 14:09:16 Medical History Condition Response COPD N Pneumonia N Arthritis N Kidney Disease N Heart Conditions N Migraines N Tuberculosis N Asthma N Anesthesia Complications N Blood Thinners N Liver Disease N Allergies/Hayfever N Diabetes N Sleep Apnea N Hypertension Y Osteoporosis N Past Encounters Encounter ID Performer Location Encounter Start Date Encounter Closed Date Diagnosis/Indication Diagnosis SNOMED-CT Code Diagnosis ICD10 Code Diagnosis Note [id number] W DARYA THOMAS MD [facility] [place] [address] [place] [address] 12/24/2017 13:55:33 12/24/2017 15:58:56 Localized, primary osteoarthritis of the shoulder region 531222232 M19.421 [id number] CHRISTIANO VILLEGAS MD [facility] [place] [address] [place] [address] 12/29/2017 09:32:32 12/29/2017 11:08:54 Localized, primary osteoarthritis of the shoulder region 151698379 M19.019 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 HHR wear problems is post activity pain - he has great function supportive care; inject, PT, topicals, heat, Health Concerns Section Related Observation LastModified by Organization Detai ls LastModified Time None Recorded Concern Status LastModified by Organization Details LastModified Time None Recorded Advance Directives Directive None Recorded Payers Encounter Date Sequence Insurance Name Policy Number Policy Hidalgo Covered Member ID Hidalgo Member ID Guarantor Name 12/24/2017 1 [place] [employer] [place] [employer] ([place]) [id number] Kaelyn Ambrose [id number] Kaelyn Ambrose 12/29/2017 1 [place] [employer] [place]) [id number] Kaelyn Ambrose [id number] Kaelyn Ambrose Notes Date Note Type Note Provider Name and Address Organization Details Recorded Time 12/24/2017 text/html He has a history of injury to his shoulder. Many years ago he had a fracture, with open reduction internal fixation. He eventually developed some arthrosis and had a hemiarthroplasty placed. He did well for many years and then he started having more problems with soreness and tenderness and has had continued symptoms, mainly with rotation and use of the arm in flexion and rotation. He has no popping and no problem with his hand but he does have difficulty doing his rotation, especially with activity away from his body, and the pain gets worse as the day goes on. He had an x-ray and eventually he was sent for further evaluation. Carol THOMAS MD [address] [place] [address], [phone], [facility] 12/28/2017 07:56:38 12/29/2017 text/html LEFT SHoulder pr oximla Humerus Fx 30 years ago. Rx Non Op. 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 Uses Indomethacin for pain CHRISTIANO VILLEGAS MD [address] [place] [address], [phone], [facility] 12/29/2017 10:09:31
--- OUTSIDE RECORDS SUMMARY | 2025-02-09 21:43 | XMS_ITS | Data Portability ---
Author Organization [facility], [facility] Address [address] [place] [address] Assessment Encounter Date Assessment Date Assessment LastModified by Organization Details LastModified Time 09/07/2023 09/07/2023 This is a pleasant 63-year-old male that presents to clinic today for a follow-up after denial for genicular nerve blocks.Patient states his pain will be a 7 out of 10 when he is up and walking and moving. Patient states that the knee does click. Patient states that it does limit his activities of daily living as he is unable to use the clutch and stand or walk for longer than a few feet without pain. Patient states he did see Dr. Ortiz who is an orthopedic in [place]. Patient states that Dr. Ortiz said he was not a good candidate for surgery at this time due to his low platelet count. Dr. Ortiz has suggested that patient come to [facility] [place] pain management for evaluation for genicular nerve blocks. Dr. Ortiz states that he does need a knee replacement but he is not a good candidate at this time to have that done. Patient states that there is not really anything that gives him relief of the pain. He can sit down for a little while and it will ease off. Patient states that when he gets up and moves it will cause the pain to get worse. Patient states that since his knee has been bothering him he has had to walk differently and is starting to have right hip pain. Patient states that that pain only happens when he is up walking around.Patient states that he has used Tylenol Advil ice rest heat with minimal relief of the pain Conservative therapy: Patient states that he does do exercises daily. Patient is unable to complete physical therapy at this time as the pain is too much and worsens his discomfort. Vernon number is [id number]. Vernon has been reviewed and is appropriate Imaging: X-ray of lumbar spine 04/29/2023 Findings: 5 views of the lumbar spine were obtained. There is no evidence of fracture or dislocation. There is mild degenerative changes of the lower lumbar spine. Mild facet arthropathy is noted. There is mild anterior oral listhesis of L4 on L5. No paraspinous process tissues abnormalities identified Impression: No acute bony abnormality Left knee x-ray 05/12/2023 Findings: Left knee 3 views were obtained. There is no acute fracture or dislocation. There is severe medial compartment degenerative change with severe medial compartment narrowing. There are mild degenerative changes elsewhere. No soft tissue abnormality is identified. Impression: Degenerative changes worse in the medial compartment. Injections: Patient does state that he has had a steroid injection done by Dr. Ortiz Orthopedic office prior to referral to [facility] [place] pain management for genicular nerve blocks Plan: We will submit today for genicular nerve blocks of the left knee. Patient has been referred by Dr. Ortiz orthopedic for a genicular nerve block of the left knee as he is not a good candidate for surgery.Risk and benefits were explained to patient for the procedure. We will follow-up with patient in 1 week to do those genicular nerve blocks of the left knee. If right hip pain does persist with pain after the left knee injections we will look at doing a right sacroiliac injections for the patient for the pain. abux Not available 09/07/2023 11:21:21 10/08/2023 10/08/2023 This patient had a left genicular nerve block done today. He is not a candidate for surgery to his knee he does have degenerative osteoarthritis of his left knee he has low platelet count so they are not able to do a total knee replacement. He is tender Over his right SI joint. He does have a positive Nsow's test on the right side.He has a positive [place] test on the right side. Positive SI joint compression test on the right side. Positive distraction test on the right side. Will seek approval for diagnostic right SI joint injection under fluoroscopy. This will be done in 2 weeks at his follow-up visit from his genicular nerve block. abux Not available 10/08/2023 09:51:28 10/22/2023 10/22/2023 This patient had a right SI joint injection under fluoroscopy today. This was a diagnostic injection. He did not get significant relief from previous Left genicular nerve block. He is going to talk to his orthopedic surgeon about completing total knee replacement. Will follow-up with him in 2 weeks. Will assess efficacy of this injection. abux Not available 10/23/2023 01:17:00 Plan of Treatment Reminders Order Date Submit Date Provider Last Modified By Organization Details Last Modified Time Details Appointments None recorded. Lab None recorded. Referral None recorded. Procedures sacroiliac joint injection (PROC) 2022 023 [email or web address] Not available 3 08:23:47 genicular nerve block (PROC) 2022 023 CARO Not available 4 05:01:07 Surgeries None recorded. Imaging None recorded. Medication Orders None recorded. Patient TargetsNo targets recorded. Patient Instructions Encounter Date Encounter Id Patient Instructions Last Modified By Organization Details Last Modified Time 09/07/2023 [id number] back pain: care instructions abux Not available 09/07/2023 11:21:24 learning about relief for back pain abux Not available 09/07/2023 11:21:24 Reason for Referral None Reported. Results Created Date Observation Date Name Description Value Unit Range Abnormal Flag Note LastModifiedBy Organization Detail LastModifiedTime Result Notes None recorded. Problems Name Problem SNOMED Code Status Onset Date Resolution Date Notes Provider Name and Address Organization Details Recorded Time Osteoarthritis of knee 503939957 Active 2022 Jac Ramos MD [address], [address], [place] [facility] 3 09:51:28 Degeneration of lumbar intervertebral disc 69022783 Active 2022 Jac Ramos MD [address], [address], [place] [facility] 3 09:51:29 Inflammation of sacroiliac joint 49308845 Active 2022 Jac Ramos MD [address], [address], [place] [facility] 3 09:51:30 Problem Notes None recorded. Procedures Surgical History Date Name Laterality Status Provider Name and Address Organization Details Recorded Time 3 Diagnostic SI Joint Injection Under Fluoroscopy completed Jac Ramos MD [address] [facility], [place], [address], [place] [facility] 10/23/2023 01:16:06 3 Genicular Nerve Block completed Jac Ramos MD [address] [facility], [place], [address], [place] [facility] 10/08/2023 09:47:45 Shoulder Surgery completed TRENA BRANCH [place] [facility] 09/04/2023 08:55:13 Imaging Results None recorded. Procedure Notes None recorded. Medical Equipment None Reported. Allergies No known drug allergies Medications Name Sig Start Date Stop Date Status Note LastModified by Organization Details LastModified Time furosemide 40 mg tablet TAKE 1 TABLET BY MOUTH TWICE A DAY FOR EDEMA active Not Available Not Available No t Available methocarbam ol 500 mg tablet active Not Available Not Available Not Available bisoprolol fumarate 5 mg tablet TAKE 1 TABLET BY MOUTH DAILY active Not Available Not Available No t Available magnesium oxide 400 mg (241.3 mg magnesium) tablet TAKE 1 TABLET BY MOUTH EVERY DAY 09/07 completed Not Available Not Available Not Available pantoprazol e 40 mg tablet,jason yed release TAKE 1 TABLET BY MOUTH EVERY DAY active Not Available Not Available No t Available ferrous sulfate 325 mg (65 mg iron) tablet TAKE 1 TABLET BY MOUTH TWICE A DAY 09/07 completed Not Available Not Available Not Available dexamethaso ne 4 mg tablet TAKE 10 TABLETS (40MG) BY MOUTH DAILY FOR 4 DAYS active Not Available Not Available No t Available hyoscyamine 0.[address] TABLET UNDER THE TONGUE AND ALLOW TO DISSOLVE 3 TIMES A DAY NEEDED 09/04 completed Not Available Not Available Not Available polyethylen e glycol 3350 17 gram/dose oral powder 09/07 completed Not Available Not Available Not Available losartan 100 mg tablet TAKE 1 TABLET BY MOUTH DAILY FOR HIGH BLOOD PRESSURE 09/07 completed Not Available Not Available Not Available oxycodone 5 mg tablet active Not Available Not Available No t Available Xarelto 20 mg tablet TAKE 1 TABLET BY MOUTH EVERY DAY IN THE EVENING FOR 30 DAYS 09/07 completed Not Available Not Available Not Available potassium chloride ER 20 mEq tablet,exte nded release TAKE 1 TABLET BY MOUTH ONCE DAILY WITH FOOD. 09/07 completed Not Available Not Available Not Available Vitals Date Recorded Oxygen saturation Oxygen saturation in Arterial blood by Pulse oximetry Body height Body mass index (BMI) Body weight Heart rate Pain severity - 0-10 verbal numeric rating [Score] - Reported Systolic blood pressure Diastolic blood pressure Provider Name and Address Organization Details Last Updated DateTime 3 97 % 97 % 185.42 cm 30.6 kg/m2 583080. 43 g 76 /min 0 136 mm[Hg] 84 mm[Hg] TRENA BRANCH [place] [facility] 3 09:46:28 Date Recorded Body height Body mass index (BMI) Body weight Oxygen saturation Oxygen saturation in Arterial blood by Pulse oximetry Pain severity - 0-10 verbal numeric rating [Score] - Reported Heart rate Systolic blood pressure Diastolic blood pressure Provider Name and Address Organization Details Last Updated DateTime 3 185.42 cm 30.6 kg/m2 744248. 43 g 97 % 97 % 0 69 /min 138 mm[Hg] 78 mm[Hg] TRENA BRANCH [place] [facility] 3 08:39:30 Date Recorded Body height Body mass index (BMI) Body weight Oxygen saturation Oxygen saturation in Arterial blood by Pulse oximetry Pain severity - 0-10 verbal numeric rating [Score] - Reported Heart rate Systolic blood pressure Diastolic blood pressure Provider Name and Address Organization Details Last Updated DateTime 3 185.42 cm 30.6 kg/m2 710541. 43 g 97 % 97 % 0 76 /min 124 mm[Hg] 79 mm[Hg] TRENA BRANCH [place] [facility] 3 09:10:16 Social History Question Answer Notes LastModified by Organizat ion Details LastModified Time Tobacco Smoking Status Never Smoker TRENA BRANCH null, [place] - [facility] 09/04/2023 08:56:07 What Is Your Level Of Alcohol Consumption? None [email or web address] Information not available 09/04/2023 In The 14 Days Before Symptom Onset, Have You Had Close Contact With A Laboratory-confirm ed COVID-19 While That Case Was Ill? No [email or web address] Information n ot available 09/04/2023 In The 14 Days Before Symptom Onset, Have You Had Close Contact With A Person Who Is Under Investigation For COVID-19 While That Person Was Ill? No Information not available 09/04/2023 Have You Been To An Area Known To Be High Risk For COVID-19? No Information not available 09/04/2023 Are You Currently Employed? Yes [email or web address] Information not available 09/04/2023 Do You Use Any Illicit Or Recreational Drugs? No [email or web address] Information not available 09/04/2023 Do You Or Have You Ever Used Any Other Forms Of Tobacco Or Nicotine? No [email or web address] Information not available 09/04/2023 Sex: Unknown Functional Status None recorded. Mental Status None recorded. Family History Nothing Reported Notes:Cancer Diabetes Hyperl ipidemia Hypertension Medical History Condition Response Coronary Artery Disease Y Gout N Head Trauma/Injury N Depression N COPD N Anxiety Disorder N Arthritis N Acid Reflux (GERD) N Cancer N Stroke N Headaches N Fibromyalgia N Kidney Disease N Ulcers N Bleeding Disorder N Tuberculosis N AIDS/HIV N Asthma N Substance Abuse N Hepatitis N Hernia N Back Injury N High Cholesterol N Liver Disease N Thyroid Problems N Anemia N Heart Attack ([place]) N Diabetes Y Heart Disease Y Hypertension Y Osteoporosis N Past Encounters Encounter ID Performer Location Encounter Start Date Encounter Closed Date Diagnosis/Indication Diagnosis SNOMED-CT Code Diagnosis ICD10 Code Diagnosis Note [id number] Jac Ramos MD [address] [place] [address] [place] [address] 09/07/2023 09:33:07 09/07/2023 10:28:51 Knee pain 85584472 M25.562 Osteoarthr itis of knee 482009566 M17.9 Inflammati on of sacroiliac joint 09504120 M46.1 [id number] Jac Ramos MD [address] [place] [address] 10/08/2023 08:30:42 10/08/2023 09:50:19 Osteoarthritis of knee 293786508 M17.9 Degenerati on of lumbar intervertebral disc 19525482 M51.36 Inflammati on of sacroiliac joint 52662839 M46.1 [id number] Jac Ramos MD [address] [place] [address] 10/22/2023 08:36:44 10/22/2023 10:19:22 Degeneration of lumbar intervertebral disc 03710994 M51.36 Osteoarthr itis of knee 056358532 M17.9 Health Concerns Section Related Observation LastModified by Organization Detai ls LastModified Time None Recorded Concern Status LastModified by Organization Details LastModified Time None Recorded Advance Directives Directive None Recorded Payers Encounter Date Sequence Insurance Name Policy Number Policy Hidalgo Covered Member ID Hidalgo Member ID Guarantor Name 09/07/2023 1 [place] [id number] Solo SimonHalie [id number] Solo Halie 10/08/2023 1 [place] [id number] Solo Halie [id number] Solo Halie 10/22/2023 1 [place] [id number] Solo Halie [id number] Solo SimonHalie Notes Date Note Type Note Provider Name and Address Organization Details Recorded Time 09/07/2023 text/html Back PainReporte d bypatient.Location:lum bar;pain radiating to the legs Quality:sharp;dull;ach ing;throbbing Severity:pain level 0/10 Duration:cannot identify Context:prior back problems Alleviating Factors:rest; relieved by changing position; relieved by lying down Aggravating Factors:walking; standing Associated Symptoms:no fever; no weak limbs; no numbness of the legs/feet; no tingling; no incontinence; no shortness of breath; no unintentional weight loss; no chills; no night sweats; no bowel/bladder symptoms; no recent increase in stress Previous Injury:no prior injury to backKneeReported bypatient.Location:lef t Quality:aching; throbbing Severity:pain level 0/10 Timing:cannot identify Context:cannot identify Alleviating Factors:sitting; lying down; position change Aggravating Factors:standing; walking Associated Symptoms:no weakness; no numbness; no tingling; no swelling; no redness; no warmth; no ecchymosis; no catching/locking; no popping/clicking; no buckling; no grinding;instability Previous Surgery:none Work Related:no Working:no Jac Ramos MD [address], [address], [place] [facility] 09/07/2023 11:21:56 10/08/2023 text/html Back PainReporte d bypatient.Location:lum bar;pain radiating to the legs Quality:sharp;dull;ach ing;throbbing Severity:pain level 0/10 Duration:cannot identify Context:prior back problems Alleviating Factors:rest; relieved by changing position; relieved by lying down Aggravating Factors:walking; standing Associated Symptoms:no fever; no weak limbs; no numbness of the legs/feet; no tingling; no incontinence; no shortness of breath; no unintentional weight loss; no chills; no night sweats; no bowel/bladder symptoms; no recent increase in stress Previous Injury:no prior injury to backKneeReported bypatient.Location:lef t Quality:aching; throbbing Severity:pain level 0/10 Timing:cannot identify Context:cannot identify Alleviating Factors:sitting; lying down; position change Aggravating Factors:standing; walking Associated Symptoms:no weakness; no numbness; no tingling; no swelling; no redness; no warmth; no ecchymosis; no catching/locking; no popping/clicking; no buckling; no grinding;instability Previous Surgery:none Work Related:no Working:no Patient presents for an injection of Genicular Nerve Block, Left Knee (Self Pay) Jac Ramos MD [address], [address], [place] [facility] 10/08/2023 09:59:09 10/22/2023 text/html Back PainReporte d bypatient.Location:lum bar;pain radiating to the legs Quality:sharp;dull;ach ing;throbbing Severity:pain level 0/10 Duration:cannot identify Context:prior back problems Alleviating Factors:rest; relieved by changing position; relieved by lying down Aggravating Factors:walking; standing Associated Symptoms:no fever; no weak limbs; no numbness of the legs/feet; no tingling; no incontinence; no shortness of breath; no unintentional weight loss; no chills; no night sweats; no bowel/bladder symptoms; no recent increase in stress Previous Injury:no prior injury to backKneeReported bypatient.Location:[facility] Quality:aching; throbbing Severity:pain level 0/10 Timing:cannot identify Context:cannot identify Alleviating Factors:sitting; lying down; position change Aggravating Factors:standing; walking Associated Symptoms:no weakness; no numbness; no tingling; no swelling; no redness; no warmth; no ecchymosis; no catching/locking; no popping/clicking; no buckling; no grinding;instability Previous Surgery:none Work Related:no Working:no Patient presents for a Right SI Joint Inj Jac Ramos MD [address], [address], [place] [facility] 10/23/2023 01:17:37
== END 2025-02-08 10:15 | disposition home or self-care (01) ==
LOC: INF 07:43
PROVIDERS: PCP Family Medicine; Visit Provider Internal Medicine Medical Oncology
DX: D69.3 Immune thrombocytopenic purpura (principal); D64.9 Anemia, unspecified
CPT/HCPCS: 96365; J1756

== ENCOUNTER 2025-02-14 07:57 | Outpatient (CLI) | payer MEDICARE, BC, SELFPAY ==
--- OUTSIDE RECORDS SUMMARY | 2025-02-14 08:00 | XMS_ITS | Clinical Summary ---
Author Organization [facility] , [facility] Address [address] [place] [address] Phone Care Team Providers Care Corporate Strategy Associate Name Role Phone Unavailable Unavailable Unavailable Reason for Visit and Chief Complaint NEW PATIENT Problems Includes: Problems addressed during this encounter and other active Problems All Visits Onset Date Resolved Date Provider Condition S tatus Joint Pain in the Right Knee 03/01/2024 Nhi FLYNN Active Last Documented On 4 11:30AM ; [facility], [facility] Joint Pain in the Left Knee 03/01/2024 Nhi FLYNN Active Last Documented On 4 11:31AM ; [facility], [facility] Plan of Treatment No Plan of Treatment Recorded Assessments Includes: Assessments from this encounter No Assessments Recorded Medical Equipment - Implanted Devices Includes: Current Devices No Medical Equipment Recorded Medications Includes: Medications discussed during this encounter and other current Medications Current Medications (continue as prescribed) Xarelto 20 MG Oral Tablet 01/07/2024 Provider: Diagnosis: Last Documented On 4 8:40AM By Radha Lee ; [facility], [facility] Potassium Chloride ER 10 MEQ Oral Tablet Extended Release 12/22/2023 Provider: MILAGROS BLANK MD Diagnosis: Last Documented On 4 8:40AM By Radha Lee ; [facility], [facility] Losartan Potassium 100 MG Oral Tablet 12/18/2023 Pro vider: Diagnosis: Last Documented On 4 8:40AM By Radha Lee ; [facility], [facility] Furosemide 40 MG Oral Tablet 11/20/2023 Provider: KAELYN LOWE MD Diagnosis: Last Documented On 4 8:40AM By Radha Lee ; [facility], [facility] Bisoprolol Fumarate 10 MG Oral Tablet 11/04/2023 Pro vider: Diagnosis: Last Documented On 4 8:40AM By Radha Lee ; [facility], [facility] Medications Administered Includes: Administered Medications from this encounter No Administered Medications Recorded Vital Signs Includes: Vital Signs from this encounter Vital Name 01/19/2006 01:43P Respiration Rate (breaths/min) 16 Height (in) 74 Weight (lb) 235 Body Mass Index (kg/m2) 30.2 Body Surface Area (m2) 2.3 Note: shirin Last Documented: On 01/19/2006 1:39PM ; [facility], [facility] Results Includes: Results discussed during this encounter [...] Time Diagnosis NEW PATIENT Yolanda Landa MD [facility] 01/20/20 06 10:20AM 2:49PM Insurance Includes: Active Insurance Policies Plan Name Member ID Group # Subscriber Relationship Effect leigh Dates 1 - [facility] [id number] KAELYN KAN Self Clinical Notes Includes: Clinical Notes from this encounter No Clinical Notes Recorded
--- OUTSIDE RECORDS SUMMARY | 2025-02-14 08:00 | XMS_ITS | Clinical Summary ---
Author Organization [facility] Address [address] [place] [address] Phone Care Team Providers Care Maintenance Team Leader Name Role Phone Unavailable Unavailable Unavailable Reason for Visit and Chief Complaint The Chief Complaint is: Left knee pain Problems Includes: Problems addressed during this encounter and other active Problems Current Visit Onset Date Resolved Date Provider Kevin ward Status Joint Pain in the Right Knee 03/01/2024 Nhi FLYNN Active Last Documented On 4 11:30AM ; [facility] Joint Pain in the Left Knee 03/01/2024 Nhi FLYNN Active Last Documented On 4 11:31AM ; [facility] Plan of Treatment No Plan of Treatment Recorded Assessments Includes: Assessments from this encounter Findings 1. Preoperative Exam- Pt underwent preoperative laboratory workup and diagnostic studies. - Last Documented On 03/02/2024 1:55PM ; [facility] 2. H/o DVT- Postoperative anticoagulation per Dr Lozada. - Last Documented On 03/02/2024 1:55PM ; [facility] 3. CAD- Cardiac Stents x 3 approx 5 years ago. Pt received cardiac clearance from Dr Guerrier. - Last Documented On 03/02/2024 1:55PM ; [facility] 4. Cirrhosis- Pt is being referred to GI by Dr Bermudez. - Last Documented On 03/02/2024 1:55PM ; [facility] 5. HTN- Continue Losartan and Bisoprolol. - Last Documented On 03/02/2024 1:55PM ; [facility] 6. ITP- Pt needs Heme/Onc Clearance from Dr Bermudez. - Last Documented On 03/02/2024 1:55PM ; [facility] Left Knee Pain secondary to DJD- Pt surgery cancelled for his comorbidities. This patient should not be rescheduled until/unless he is cleared by Dr Bermudez and will likely need to be at the hospital at that time. - Last Documented On 03/02/2024 1:55PM ; [facility] ASC Questions - Last Documented On 03/02/2024 1:55PM ; [facility] Does the patient have any additional hardware in their body? Dental Implants - Last Documented On 03/02/2024 1:55PM ; [facility] Is the patient a Diabetic? No - Last Documented On 03/02/2024 1:55PM ; [facility] Is the patient on a Semaglutide? No - Last Documented On 03/02/2024 1:55PM ; [facility] Has the patient ever been treated for MRSA? No - Last Documented On 03/02/2024 1:55PM ; [facility] Has the patient ever smoked? No - Last Documented On 03/02/2024 1:55PM ; [facility] Does the patient drink daily ETOH? Quit 3 months ago - Last Documented On 03/02/2024 1:55PM ; [facility] Do you have a h/o GIB following NSAIDs use? No - Last Documented On 03/02/2024 1:55PM ; [facility] Does the patient have a clear discharge plan that includes having someone drop them off for surgery, pick them up, and stay with them 72 hrs. This person will have to be able to cook meals, assist in getting the patient to and from the restroom and give medications. Yes, Darryl Roca - Last Documented On 03/02/2024 1:55PM ; [facility] Medical Equipment - Implanted Devices Includes: Current Devices No Medical Equipment Recorded Medications Includes: Medications discussed during this encounter and other current Medications Current Medications (continue as prescribed) Xarelto 20 MG Oral Tablet 01/07/2024 Provider: Diagnosis: Last Documented On 4 8:40AM By Radha BLANCHARD [facility] Potassium Chloride ER 10 MEQ Oral Tablet Extended Release 12/22/2023 Provider: MILAGROS BERMUDEZ MD Diagnosis: Last Documented On 4 8:40AM By Radha Lee ; [facility] Losartan Potassium 100 MG Oral Tablet 12/18/2023 Pro vider: Diagnosis: Last Documented On 4 8:40AM By Radha Lee ; [facility] Furosemide 40 MG Oral Tablet 11/20/2023 Provider: KAELYN LOWE MD Diagnosis: Last Documented On 4 8:40AM By Radha Lee ; [facility] Bisoprolol Fumarate 10 MG Oral Tablet 11/04/2023 Pro vider: Diagnosis: Last Documented On 4 8:40AM By Radha Lee ; [facility] Medications Administered Includes: Administered Medications from this encounter No Administered Medications Recorded Vital Signs Includes: Vital Signs from this encounter Vital Name 03/01/2024 11:31A Blood Pressure Sitting (mmHg) 124/68 Pulse Rate-Sitting (bpm) 72 Height (in) 73 Weight (lb) 251 Body Mass Index 33.1 Body Surface Area 2.4 Oxygen Saturation (%) 98 Last Documented: On 03/01/2024 11:44A M ; [facility] Results Includes: Results discussed during [...] 01/22/2024 Last Documented On 4 10:46AM ; [facility] Smoking Status Unknown Medical History Includes: Medical History addressed during this encounter Description Last Updated HTNCADDVT 03/01/2024 Last Documented On 4 10:52AM ; [facility] Family History Includes: Family History addressed [...] Time Diagnosis Pre Admission Testing Nhi FLYNN [facility] 03/01/20 24 9:57AM 11:03AM Insurance Includes: Active Insurance Policies Plan Name Member ID Group # Subscriber Relationship Effect leigh Dates - [facility] [id number] KAELYN KAN Self Clinical Notes Includes: Clinical Notes from this encounter * Progress note Date Encounter Last Documented by 03/01/2024 Pre Admission Testing Last docum ented on 03/02/2024; 1:55 PM, Nhi FLYNN; [facility] Chief Complaint The Chief Complaint is: [...]
--- OUTSIDE RECORDS SUMMARY | 2025-02-14 08:01 | XMS_ITS ---
Care Plan - [facility] Created on: February 14, 2025 KAELYN KAN : 1960 Sex: Male Author Organization [facility] Address [address] [place] [address] Phone Care Team Providers Care Web Content & Social Media Manager Name Role Phone Unavailable Unavailable Unavailable
--- OUTSIDE RECORDS SUMMARY | 2025-02-14 08:01 | XMS_ITS | Data Portability ---
Author Organization [facility] [place] [facility] [place] [facility] Address [address] [place] [phone] Care Team Providers Care Technical Support Agent Name Role Phone [facility] Primary Care Provider [phone] Assessment Encounter Date Assessment Date Assessment LastModified [...] needed. 4) Thrombocytopenia: Profound. He sees a thread separator in [place]. Previously improved on steroids. He stopped steroids 2 weeks ago. Obtain CBC now. 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 Following with hematology. [email or web address] Not available 06/25/2023 10:56:17 07/23/2023 07/23/2023 63-year-old [...] bloating. 4) Thrombocytopenia: Profound. He sees a thread separator in [place]. Previously improved on steroids. This improved with steroids previously, worsenend when they were stopped. 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 Following with hematology. 6) GERD: Change Nexium to Pantoprazole. Not available 07/23/2023 18:04:22 08/11/2024 08/11/2024 64-year-old [...] HCC. Pt reports recent US abd at [facility]. WIll obtain. Not available 08/11/2024 12:23:52 10/13/2024 [...] HCC. Pt reports recent US abd at [facility]. WIll obtain. Not available 10/13/2024 10:41:40 02/09/2025 [...] - Labs ordered through with the patient's thread separator, Dr. Bermudez. 3) Constipation: Miralax as needed. [...] for HCC. Patient to perform ultrasound at [facility]. Order given to patient today. Not available 02/09/2025 09:58:02 Plan of Treatment Reminders Order Date Submit Date Provider Last Modified By Organization Details Last Modified Time Details Appointments Establ ished Visit 15 min 2024 09:00A M Saeid Gilman MD Not available Not available Not available Lab CMP, serum or plasma 2024 025 [facility], [address], [address], [place], [address], 02/09/2025 09:47:27 CBC w/ auto diff 2024 025 [facility], [address], [address], [place], [address], 02/09/2025 09:47:27 afp (alpha -fetop rotein ) tumor marker , serum or plasma 2024 025 [facility], [address], [address], [place], [address], 02/09/2025 09:47:27 PT/PTT , plasma 2024 025 [facility], [address], [address], [place], [address], 02/09/2025 09:47:27 CMP, serum or plasma 2023 024 [facility], [address], [address], [place], [address], 08/12/2024 10:04:33 afp (alpha -fetop rotein ) tumor marker , serum or plasma 2023 024 [facility], [address], [address], [place], [address], 08/18/2024 09:03:53 PT/INR 2023 024 [email or web address] [facility], [address], [address], [place], [address], 08/18/2024 09:03:53 CBC w/ auto diff 2023 024 [facility], [address], [address], [place], [address], 08/12/2024 09:09:00 hepati tis A virus Ab, qualit ative, immuno assay, serum 2023 024 [facility], [address], [address], [place], [address], 08/14/2024 19:21:40 hepati tis B surfac e Ab, qualit ative, serum 2023 024 [facility], [address], [address], [place], [address], 08/13/2024 12:51:57 CBC [address] (Registration ), [address], [place], [address], 07/02/2023 08:11:07 CMP, serum or plasma [address] (Registration ), [address], [place], [address], 07/02/2023 08:11:07 PT/INR [address] (Registration ), [address], [place], [address], 07/02/2023 08:11:07 afp (alpha -fetop rotein ), serum [address] (Registration ), [address] [place], [address], 07/02/2023 08:11:07 HUE (antin uclear antibo dies) screen , serum [address] (Registration ), [address] [place], [address], 07/02/2023 08:11:07 igg, quanti tative , serum [address] (Registration ), [address] [place], [address], 07/02/2023 08:11:08 actin smooth muscle Ab, serum [address] (Registration ), [address] [place], [address], 07/02/2023 08:11:08 mitoch ondria l Ab, serum [address] (Registration ), [address] [place], [address], 07/02/2023 08:11:08 hemoch romato sis mutati on (hfe), blood/ tissue [address] (Registration ), [address] [place], [address], 07/02/2023 08:11:08 iron + TIBC + ferrit in, serum [address] (Registration ), [address] [place], [address], 07/02/2023 08:11:08 alpha- 1-anti trypsi n (aat), QN, serum [address] (Registration ), [address], [place], [address], 07/02/2023 08:11:08 alpha- 1-anti trypsi n (aat) phenot ype, serum [address] (Registration ), [address], [place], [address], 07/02/2023 08:11:09 hepati tis B surfac e Ab, quanti tative , serum [address] (Registration ), [address] [facility], [place], [address], 07/02/2023 08:11:09 hepati tis A Ab, total, serum [address] (Registration ), [address] [facility], [place], [address], 07/02/2023 08:11:09 hepati tis (A+B+C ) panel, serum [address] (Registration ), [address] [facility], [place], [address], 07/02/2023 08:11:09 Referral None record ed. Procedures None record ed. Surgeries None record ed. Imaging US, liver 2024 025 [email or web address] (Scheduling), [address], [place], [address], 02/09/2025 09:55:57 US, liver 2022 023 [facility] (Scheduling), [address], [place], [address], 07/07/2023 10:31:32 Medication Orders Xifaxa n 550 mg tablet 2023 025 [facility]armacy #[id number], [address] [place], [address], 02/09/2025 09:26:24 Dexila nt 60 mg capsul e, delaye d releas e 2023 024 [facility]/Pharmacy #[id number], [facility] [place], [address], 08/11/2024 11:25:44 simeth icone 125 mg capsul e 2022 023 [place] [address] [facility] #[id number], [address], [id number], 02/09/2025 09:26:02 pantop razole 40 mg tablet ,delay ed releas e 2022 023 [place] [address] [id number], [address], [id number], 02/09/2025 09:22:38 Patient TargetsNo targets recorded. Patient InstructionsNo instructions recorded. Reason for Referral None Reported. Results Created Date Observation Date Name Description Value Unit Range Abnormal Flag Note LastModifiedBy Organization Detail LastModifiedTime 07/15/20 24 07/15/2024 BHAVANI PREP TISSU E bhavani prep tissue NEGATI VE negati ve Not Available [facility] ([facility]) [address], [place], [address], 07/15/2024 17:33:57 07/07/20 23 07/07/2023 US, liver No observ ation record ed. [facility] [address], [place], [address], 08/28/2023 14:46:27 Result Notes None recorded. Problems Name Problem SNOMED Code Status Onset Date Resolution Date Notes Provider Name and Address Organization Details Recorded Time Cirrhosis of liver 73318950 Active [address], [place], [place], [address] [place] [address] , [facility] [place] 3 09:35:44 Constipation 31712809 Active [address], [place] [address] , [place] - [facility] & [place] 3 10:54:34 Thrombocytope cris disorder 140473368 Active [address], [place] [address] , [facility] - [facility] & [place] 3 10:54:44 Superior mesenteric vein thrombosis 310944751 Active [address], [place] [address] , [facility] - [facility] & [place] 3 10:55:43 Gastroesophag eal reflux disease without esophagitis 343449652 Active [address], [place] [address] , [facility] - [facility] & [place] 3 09:35:58 Abdominal bloating 249862856 Active [address], [place] [address] , [place] [facility] & [place] 3 09:36:01 Problem Notes None recorded. Procedures Surgical History Date Name Laterality Status Provider Name and Address Organization Details Recorded Time total knee replacement completed [facility] [place] 02/09/2025 09:27:31 total shoulder replacement completed [facility] - [facility] [place] 02/09/2025 09:27:47 operation on stomach [facility] [place] 02/09/2025 09:27:59 Imaging Results Imaging Date Name Status LastModified by Organiz ation Details LastModified Time 07/07/2023 US, liver completed [facility] [address], [place], [address], 08/28/2023 14:46:27 Procedure Notes None recorded. Medical [...] MOUTH EVERY DAY FOR 4 DAYS STARTING 3-8-24 02/09 completed Not Available Not Available Not [...] Updated DateTime 3 187.96 cm 29.8 kg/m2 679953. 51 g 97.5 [degF] 72 /min 96 % 96 % 69 /min 104 mm[Hg] 67 mm[Hg] Precious Faye [place] [facility] 3 09:10:10 Date Recorded Body weight Body mass index (BMI) Body height Heart rate Body temperature Oxygen saturation Oxygen saturation in Arterial blood by Pulse oximetry Heart rate Systolic blood pressure Diastolic blood pressure Provider Name and Address Organization Details Last Updated DateTime 4 506557. 2 g 29.7 kg/m2 187.96 cm 109 /min 98.1 [degF] 95 % 95 % 100 /min 164 mm[Hg] 76 mm[Hg] [facility] & [place] 4 10:29:44 Date Recorded Body height Body mass index (BMI) Body weight Body temperature Heart rate Systolic blood pressure Diastolic blood pressure Provider Name and Address Organization Details Last Updated DateTime 4 187.96 cm 29.7 kg/m2 816513. 56 g 97.3 [degF] 75 /min 146 mm[Hg] 75 mm[Hg] Lisha Shell [facility] & [place] 4 09:10:59 Date Recorded Body height Body mass index (BMI) Body weight Heart rate Systolic blood pressure Diastolic blood pressure Provider Name and Address Organization Details Last Updated DateTime 5 187.96 cm 28.8 kg/m2 195419. 49 g 73 /min 133 mm[Hg] 73 mm[Hg] Kraig ward [facility] & [place] 5 09:28:08 Social History Question Answer Notes LastModified by Organizat ion Details LastModified Time Tobacco Smoking Status Never Smoker Precious Faye [facility] & [place] 06/25/2023 09:09:55 What Is Your Level Of Alcohol Consumption? None Information not available 06/25/2023 What Is Your Level Of Caffeine Consumption? Occasional [email or web address] Information not available 06/25/2023 Do You Use Any Illicit Or Recreational Drugs? No [email or web address] Information not available 06/25/2023 Do You Or Have You Ever Used Any Other Forms Of Tobacco Or Nicotine? No [email or web address] Information not available 06/25/2023 Sex: Unknown Functional [...] SNOMED-CT Code Diagnosis ICD10 Code Diagnosis Note [id number] Saeid Gilman MD [facility] [address] [address] 06/01/2023 08:33:54 06/01/2023 13:05:24 [id number] Pablito Mccarthy PA-C [facility] [address] [address] 06/25/2023 08:46:19 06/25/2023 09:47:01 Cirrhosis of liver 76985685 K74.60 Constipation 15390110 K5 9.00 Thrombocyt openic disorder 339416213 D69.6 Superior m esenteric vein thrombosis 832245883 K55.059 History of gastrointestinal bleed 546998960 Z87.19 121269 Pablito Mccarthy PA-C [facility] [address] [address] 07/23/2023 09:01:42 07/23/2023 10:12:53 Cirrhosis of liver 21557211 K74.60 Constipation 12915742 K5 9.00 Thrombocyt openic disorder 225128775 D69.6 Superior m esenteric vein thrombosis 650849411 K55.059 History of gastrointestinal bleed 335523542 Z87.19 Gastroesop hageal reflux disease without esophagitis 010593158 K21.9 Abdominal bloating 09996 9008 R14.0 [id number] Saeid Gilman MD [facility] [address] [address] 08/11/2024 10:19:21 08/11/2024 11:42:38 Cirrhosis of liver 62884429 K74.60 Constipation 51734092 K5 9.00 Thrombocyt openic disorder 402491831 D69.6 Superior m esenteric vein thrombosis 455777779 K55.059 History of gastrointestinal bleed 873488509 Z87.19 Gastroesop hageal reflux disease without esophagitis 331120699 K21.9 Abdominal bloating 78840 9008 R14.0 Hepatic encephalopathy 88076866 K76.82 Ascites 673045265 R18.8 [id number] Saeid Gilman MD [facility] [address] [address] 10/13/2024 08:57:09 10/13/2024 09:43:50 Cirrhosis of liver 95909115 K74.60 Constipation 91509939 K5 9.00 Thrombocyt openic disorder 446785601 D69.6 Superior m esenteric vein thrombosis 583485929 K55.059 History of gastrointestinal bleed 663272473 Z87.19 Gastroesop hageal reflux disease without esophagitis 954711959 K21.9 Abdominal bloating 52275 9008 R14.0 Hepatic encephalopathy 02937892 K76.82 Ascites 208486955 R18.8 [id number] Saeid Gilman MD [facility] [address] [address] 02/09/2025 09:08:06 02/09/2025 09:52:00 Cirrhosis of liver 02186853 K74.60 Constipation 52423332 K5 9.00 Thrombocyt openic disorder 726504967 D69.6 Superior m esenteric vein thrombosis 446266758 K55.059 History of gastrointestinal bleed 086724705 Z87.19 Gastroesop hageal reflux disease without esophagitis 861441928 K21.9 Abdominal bloating 55922 9008 R14.0 Hepatic encephalopathy 81748779 K76.82 Ascites 473824967 R18.8 Alcoholic cirrhosis 4200 13322 K70.31 Health Concerns Section Related Observation LastModified by Organization Detai ls LastModified Time None Recorded Concern Status LastModified by Organization Details LastModified Time None Recorded Advance Directives Directive None Recorded Payers Encounter Date Sequence Insurance Name Policy Number Policy Hidalgo Covered Member ID Hidalgo Member ID Guarantor Name 06/25/2023 2 [facility] [employer] [facility] CLAIMS - [employer] [place] ([place]) Halie Banda [id number] [place] 07/23/2023 2 [employer] EMPLOYEE CLAIMS - [employer] [place] ([place] Halie Banda [id number] [place] 08/11/2024 2 [facility] EMPLOYEE CLAIMS - [place] ([place] Halie Banda [id number] [place] 08/11/2024 1 [place] [id number] [place] 10/13/2024 1 [place] [id number] [place] 10/13/2024 2 [place] [id number] [place] [id number] [place] 02/09/2025 1 [place] [id number] [place] 02/09/2025 2 [place] [id number] [place] [id number] [place] Notes Date Note Type [...] as 16. He was seeing hematology in [place] and was placed on steroids which [...] improved with bowel movements. Pablito Mccarthy PA-C [address], [place], [address], [place] [facility] [place] [facility] [place] 06/25/2023 10:56:47 07/23/2023 text/html PREVIOUS ( 3): [...] as 16. He was seeing hematology [place] and was placed on steroids which [...] further disposition of care. Pablito Mccarthy PA-C [address], [place], [address], [place] [facility] [place] 07/23/2023 18:04:40 08/11/2024 text/html PREVIOUS ( 3): [...] as 16. He was seeing hematology [place] and was placed on steroids which [...] Sleep cycle is altered. Saeid Gilman MD [address], [place], [address], [facility] [place] [facility] [place] 08/11/2024 12:24:41 10/13/2024 text/html PREVIOUS ( 3): [...] as 16. He was seeing hemat[place] and was placed on steroids which [...] He otherwise feels well. Saeid Gilman MD [address], [place], [address], [place] 10/13/2024 10:41:59 02/09/2025 text/html PREVIOUS ( 3): [...] as 16. He was seeing hemat[place] and was placed on steroids which [...] increase in abdominal girth. Saeid Gilman MD [address], [place], [address], [facility] [place] [facility] [place] 02/09/2025 10:06:18
--- OUTSIDE RECORDS SUMMARY | 2025-02-14 08:01 | XMS_ITS | Clinical Summary ---
Author Organization [facility] , [facility] Address [address] [place] [address] Phone Care Team Providers Care Carton Folder Name Role Phone Unavailable Unavailable Unavailable Reason for Visit and Chief Complaint The Chief Complaint is: Left knee pain Problems Includes: Problems addressed during this encounter and other active Problems All Visits Onset Date Resolved Date Provider Condition S tatus Joint Pain in the Right Knee 03/01/2024 hNi FLYNN Active Last Documented On 4 11:30AM ; [facility], [facility] Joint Pain in the Left Knee 03/01/2024 Nhi FLYNN Active Last Documented On 4 11:31AM ; [facility], [facility] Plan of Treatment He has end-stage osteoarthritis [...] - Last Documented On 01/22/2024 9:15AM ; [facility], [facility] Instructions to patient Lose weight Last Documented On 4 8:41AM ; [facility], [facility] Assessments Includes: Assessments from this encounter Findings - Overweight - Last Documented On 01/22/2024 9:15AM ; [facility], [facility] Instructions Includes: Instructions from this encounter Instructions to patient Lose weight Last Documented On 4 8:41AM ; [facility], [facility] Medical Equipment - Implanted Devices Includes: Current Devices No Medical Equipment Recorded Medications Includes: Medications discussed during this encounter and other current Medications Current Medications (continue as prescribed) Xarelto 20 MG Oral Tablet 01/07/2024 Provider: Diagnosis: Last Documented On 4 8:40AM By Timetrasif Lee ; [facility], [facility] Potassium Chloride ER 10 MEQ Oral Tablet Extended Release 12/22/2023 Provider: MILAGROS BLANK MD Diagnosis: Last Documented On 4 8:40AM By Timetria Maxberry ; [facility], [facility] Losartan Potassium 100 MG Oral Tablet 12/18/2023 Pro vider: Diagnosis: Last Documented On 4 8:40AM By Timetria Maxberry ; [facility], [facility] Furosemide 40 MG Oral Tablet 11/20/2023 Provider: KAELYN LOWE MD Diagnosis: Last Documented On 4 8:40AM By Timetria Maxsondra ; [facility], [facility] Bisoprolol Fumarate 10 MG Oral Tablet 11/04/2023 Pro vider: Diagnosis: Last Documented On 4 8:40AM By Timetria Rosa ; [facility], [facility] Medications Administered Includes: Administered Medications from this encounter No Administered Medications Recorded Vital Signs Includes: Vital Signs from this encounter Vital Name 01/22/2024 08:40A Height (in) 73 Weight (lb) 230 Body Mass Index 30.3 Body Surface Area 2.3 Note: tm Last Documented: On 01/22/2024 8:40AM ; [facility], [facility] Results Includes: Results discussed during this [...] 01/22/2024 Last Documented On 4 9:15AM ; [facility] Smoking Status Unknown Procedures and Surgical History Includes: Procedures from this encounter Procedures Code Diagnosis Performing Provider Service L ocation Service Date use of tobacco assessment performed 1000F Last Documented On 4 8:41AM ; [facility] review of medications documented 1160F Last Documented On 4 8:41AM ; [facility] Medical History Includes: Medical History addressed during [...] Time Diagnosis Physician Specified Duarte Lozada MD [facility] 01/22/20 24 8:03AM 9:13AM Overweight Insurance Includes: Active Insurance Policies Plan Name Member ID Group # Subscriber Relationship Effect leigh Dates - [facility] [id number] KAELYN KAN Self Clinical Notes Includes: Clinical Notes from this encounter * Progress note Date Encounter Last Documented by 01/22/2024 Physician Specified Last leonie ford on 01/22/2024; 9:15 AM, Duarte Lozada MD; [facility] Chief Complaint The Chief Complaint is: [...] Tablet 5 days, 0 refills - Nystatin 304609 UNIT/ML Mouth/Throat Suspension 7 days, 0 refills [...]
--- OUTSIDE RECORDS SUMMARY | 2025-02-14 08:01 | XMS_ITS | Data Portability ---
Author Organization [facility] Address [address] [place] [address] Assessment Encounter Date Assessment Date Assessment LastModified [...] Dr. Ortiz who is an orthopedic in [place]. Patient states that Dr. Ortiz said he was not a good candidate for surgery at this time due to his low platelet count. Dr. Ortiz has suggested that patient come to [facility] pain management for evaluation for genicular nerve [...] and worsens his discomfort. Vernon number is [phone]. Vernon has been reviewed and is appropriate [...] [facility] Orthopedic office prior to referral to [facility] pain management for genicular nerve blocks Plan: [...] SI joint. He does have a positive Snow's test on the right side.He has a [...] Procedures sacroiliac joint injection (PROC) 2022 023 [email or web address] Not available 3 08:23:47 genicular nerve block (PROC) 2022 023 CARO Not available 4 05:01:07 Surgeries None recorded. Imaging None recorded. Medication Orders None recorded. Patient TargetsNo targets recorded. Patient Instructions Encounter Date Encounter Id Patient Instructions Last Modified By Organization Details Last Modified Time 09/07/2023 [id number] back pain: care instructions abux Not available [...] Organization Details Recorded Time Osteoarthritis of knee 510211188 Active 2022 Jac Ramos MD [address], [address], [place] [facility] 3 09:51:28 Degeneration of lumbar intervertebral disc 39018176 Active 2022 Jac Ramos MD [address], [address], [place] [facility] 3 09:51:29 Inflammation of sacroiliac joint 83604613 Active 2022 Jac Ramos MD [address], [address], [place] [facility] 3 09:51:30 Problem Notes None recorded. Procedures Surgical History Date Name Laterality Status Provider Name and Address Organization Details Recorded Time 3 Diagnostic SI Joint Injection Under Fluoroscopy completed Jac Ramos MD [address] [facility] [address], [place], [address], [place] [facility] 10/23/2023 01:16:06 3 Genicular Nerve Block completed Jac Ramos MD [address] [facility] [address], [place], [address], [place] [facility] 10/08/2023 09:47:45 [...] % 97 % 185.42 cm 30.6 kg/m2 690698. 43 g 76 /min 0 136 mm[Hg] [...] Updated DateTime 3 185.42 cm 30.6 kg/m2 226996. 43 g 97 % 97 % 0 [...] Updated DateTime 3 185.42 cm 30.6 kg/m2 051465. 43 g 97 % 97 % 0 76 /min 124 mm[Hg] 79 mm[Hg] TRENA BRANCH [place] - [facility] 3 09:10:16 Social History Question Answer Notes LastModified by Organizat ion Details LastModified Time Tobacco Smoking Status Never Smoker TRENA BRANCH null, [place] [facility] 09/04/2023 08:56:07 What Is Your Level Of Alcohol Consumption? None [email or web address] Information not available 09/04/2023 In The 14 Days Before Symptom Onset, Have You Had Close Contact With A Laboratory-confirm ed COVID-19 While That Case Was Ill? No [email or web address] Information n ot available 09/04/2023 In The 14 Days Before Symptom Onset, Have You Had Close Contact With A Person Who Is Under Investigation For COVID-19 While That Person Was Ill? No Information not available 09/04/2023 Have You Been To An Area Known To Be High Risk For COVID-19? No [email or web address] Information not available 09/04/2023 Are You Currently Employed? Yes [email or web address] Information not available 09/04/2023 Do You Use Any Illicit Or Recreational Drugs? No [email or web address] Information not available 09/04/2023 Do You Or Have You Ever Used Any Other Forms Of Tobacco Or Nicotine? No [email or web address] Information not available 09/04/2023 Sex: Unknown Functional Status None recorded. Mental Status None recorded. Family History Nothing Reported Notes:Cancer Diabetes Hyperl ipidemia Hypertension Medical History Condition Response Coronary Artery Disease Y Gout N Hernia N Head Trauma/Injury N Thyroid Problems N Depression N COPD N Anemia N Heart Attack (GA) N Ulcers N Diabetes Y Anxiety Disorder N Bleeding Disorder N Arthritis N Tuberculosis N AIDS/HIV N Acid Reflux (GERD) N Cancer N Stroke N Asthma N Substance Abuse N Back Injury N High Cholesterol N Hepatitis N Liver Disease N Heart Disease Y Headaches N Fibromyalgia N Hypertension Y Osteoporosis N Kidney Disease N Past Encounters Encounter ID Performer Location Encounter Start Date Encounter Closed Date Diagnosis/Indication Diagnosis SNOMED-CT Code Diagnosis ICD10 Code Diagnosis Note [id number] Jac Ramos MD [address] MERRITT [address] [place] [address] 09/07/2023 09:33:07 09/07/2023 10:28:51 Knee pain 23888732 M25.562 Osteoarthr itis of knee 391576668 M17.9 Inflammati on of sacroiliac joint 02699532 M46.1 [id number] Jac Ramos MD [address] [place] [address] 10/08/2023 08:30:42 10/08/2023 09:50:19 Osteoarthritis of knee 232012750 M17.9 Degenerati on of lumbar intervertebral disc 08405138 M51.36 Inflammati on of sacroiliac joint 50745003 M46.1 [id number] Jac Ramos MD [address] [place] [address] 10/22/2023 08:36:44 10/22/2023 10:19:22 Degeneration of lumbar intervertebral disc 35360987 M51.36 Osteoarthr itis of knee 712341642 M17.9 Health Concerns Section Related Observation LastModified by Organization Detai ls LastModified Time None Recorded Concern Status LastModified by Organization Details LastModified Time None Recorded Advance Directives Directive None Recorded Payers Encounter Date Sequence Insurance Name Policy Number Policy Hidalgo Covered Member ID Hidalgo Member ID Guarantor Name 09/07/2023 1 [place] [id number] Solo SimonHalie [id number] Solo Halie 10/08/2023 1 [place] [id number] Solo Halie [id number] Solo Halie 10/22/2023 1 [place] [id number] oSlo Halie [id number] Solo SimonHalie Notes Date Note Type [...] Related:no Working:no Jac Ramos MD [address], [address], [place] [facility] 09/07/2023 11:21:56 [...] (Self Pay) Jac Ramos MD [address], [address], [place] [facility] 10/08/2023 09:59:09 [...] stress Previous Injury:no prior injury to backKneeReported bypatient.Location:[facility] Quality:aching; throbbing Severity:pain level 0/10 Timing:cannot identify Context:cannot identify Alleviating Factors:sitting; lying down; position change Aggravating Factors:standing; walking Associated Symptoms:no weakness; no numbness; no tingling; no swelling; no redness; no warmth; no ecchymosis; no catching/locking; no popping/clicking; no buckling; no grinding;instability Previous Surgery:none Work Related:no Working:no Patient presents for a Right SI Joint Inj Jac Ramos MD [address], [address], [place] [facility] 10/23/2023 01:17:37
--- OUTSIDE RECORDS SUMMARY | 2025-02-14 08:01 | XMS_ITS | Continuity of Care Document ---
Author Organization [place] [facility] [place] Address [address] [facility] [address] [place] [address] Care Team Providers Care Ribbon Cutter Name Role Phone [facility] Primary [...] - Labs ordered through with the patient's talent acquisition sourcer, Dr. Bermudez. 3) Constipation: Miralax as needed. [...] for HCC. Patient to perform ultrasound at [facility]. Order given to patient today. Not available 02/09/2025 09:58:02 Plan of Treatment Reminders Order Date Submit Date Provider Last Modified By Organization Details Last Modified Time Details Appointments Establ ished Visit 15 min 2024 09:00A M Saeid Gilman MD Not available Not available Not available Lab CMP, serum or plasma 2024 025 [facility], [address], [address], [place], [address], 02/09/2025 09:47:27 CBC w/ auto diff 2024 025 [facility], [address], [address], [place], [address], 02/09/2025 09:47:27 afp (alpha -fetop rotein ) tumor marker , serum or plasma 2024 025 [facility], [address], [address], [place], [address], 02/09/2025 09:47:27 PT/PTT , plasma 2024 025 [facility], [address], [address], [place], [address], 02/09/2025 09:47:27 Referral None record ed. Procedures None record ed. Surgeries None record ed. Imaging US, liver 2024 025 [email or web address] bel [facility] (Scheduling), [address], [place], [address], 02/09/2025 09:55:57 Medication Orders None record ed. Patient TargetsNo targets recorded. Patient InstructionsNo instructions recorded. Reason for Referral None Reported. Problems Name Problem SNOMED Code Status Onset Date Resolution Date Notes Provider Name and Address Organization Details Recorded Time Cirrhosis of liver 96667861 Active 2022 Pablito Mccarthy PA-C [address], [place], [address] , [place] [facility] [place] [facility] [place] 3 09:35:44 Constipation 43090003 Active 2022 Pablito Mccarthy PA-C [address], [place], [address] , [place] [facility] [place] [facility] [place] 3 10:54:34 Thrombocytope cris disorder 958717934 Active [address], [place], [address] , [place] [facility] [place] [facility] [place] 3 10:54:44 Superior mesenteric vein thrombosis 537774919 Active 2022 Pablito Mccarthy PA-C [address], [place], [address] , [place] [facility] & [place] 3 10:55:43 Gastroesophag eal reflux disease without esophagitis 456467134 Active 2022 Pablito Mccarthy PA-C [address], [place], [address] , [place] [facility] [place] [facility] [place] 3 09:35:58 Abdominal bloating 556704700 Active 2022 Pablito Mccarthy PA-C [address], [place], [address] , [place] [facility] & [place] 3 09:36:01 Problem Notes None recorded. Procedures Surgical History Date Name Laterality Status Provider Name and Address Organization Details Recorded Time total knee replacement completed [facility] - [facility] & [place] 02/09/2025 09:27:31 total shoulder replacement completed Kraig Tsai [facility] & [place] 02/09/2025 09:27:47 operation on stomach completed Kraig Medeiros [place] - [facility] [place] [facility] [place] 02/09/2025 09:27:59 Imaging Results None recorded. Procedure [...] Last Updated DateTime 187.96 cm 28.8 kg/m2 105157. 49 g 73 /min 133 mm[Hg] 73 mm[Hg] Kraig ward [facility] & [place] 09:28:08 Social History Question Answer Notes LastModified by Organizat ion Details LastModified Time Tobacco Smoking Status Never Smoker Precious mirza, [facility] & [place] 06/25/2023 09:09:55 What Is Your Level Of Alcohol Consumption? None Information not available 06/25/2023 What Is Your Level Of Caffeine Consumption? Occasional [email or web address] Information not available 06/25/2023 Do You Use Any Illicit Or Recreational Drugs? No [email or web address] Information not available 06/25/2023 Do You Or Have You Ever Used Any Other Forms Of Tobacco Or Nicotine? No [email or web address] Information not available 06/25/2023 Sex: Unknown Functional [...] SNOMED-CT Code Diagnosis ICD10 Code Diagnosis Note [id number] Saeid Gilman MD [facility] [address] [address] 02/09/2025 09:08:06 02/09/2025 09:52:00 Cirrhosis of liver 06408571 K74.60 Constipation 06622570 K5 9.00 Thrombocyt openic disorder 693961808 D69.6 Superior m esenteric vein thrombosis 404027846 K55.059 History of gastrointestinal bleed 165577677 Z87.19 Gastroesop hageal reflux disease without esophagitis 385605629 K21.9 Abdominal bloating 52027 9008 R14.0 Hepatic encephalopathy 64521804 K76.82 Ascites 381677976 R18.8 Alcoholic cirrhosis 4200 96583 K70.31 Health Concerns Section Related Observation LastModified by Organization Detai ls LastModified Time None Recorded Concern Status LastModified by Organization Details LastModified Time None Recorded Payers Encounter Date Sequence Insurance Name Policy Number Policy Hidalgo Covered Member ID Hidalgo Member ID Guarantor Name 02/09/2025 1 [place] Solo Ambrose [id number] Solo Ambrose 02/09/2025 2 [place] [id number] Solo Ambrose [id number] Solo Ambrose Notes Date Note Type [...] as 16. He was seeing hematology in [place], [place] and was placed on steroids which [...] increase in abdominal girth. Saeid Gilman MD [address], [place], [address], [facility] [place] [facility] [place] 02/09/2025 10:06:18
[2025-02-14 08:08] VITALS: BMI 28.8
[2025-02-14 08:21] VITALS: BP 139/70; PULSE 71; RESP 18; TEMP 36.4; O2SAT 100
[2025-02-14] MEDS: IRON SUCROSE COMPLEX 200 MG in 0.9 % SODIUM CHLORIDE 100 ML 220 MG IV (08:21)
[2025-02-14] MEDS: SODIUM CHLORIDE 0.9% 50ML BAG 50 ML IV (08:21)
[2025-02-14 08:32] LABS: Basophils # 0.1 K/mm3 (0-0.2); Eosinophils # 0.2 K/mm3 (0.0-0.4); Eosinophils % 4.4 % (0.1-12.0); Hematocrit 35.6 % (42.0-52.0); Hemoglobin 11.4 g/dL (14.1-18.0); Lymphocytes # 1.2 K/mm3 (0.7-4.5); Lymphocytes % 24.9 % (10-50); Mean Corpuscular Hemoglobin 25.2 pg (27.0-31.2); Mean Corpuscular Volume 78.8 fl (80-94); Mean Platelet Volume 10.8 fl (7.4-10.4); Monocytes # 0.5 K/mm3 (0.1-1.0); Monocytes % 10.9 % (1.7-9.3); Neutrophils # 2.9 K/mm3 (1.8-7.8); Neutrophils % 58.4 % (37.0-80.0); Nucleated Red Blood Cells # 0 10^3/uL; Nucleated Red Blood Cells % 0 %; Platelet Count 140 K/mm3 (142-424); Red Blood Count 4.52 M/mm3 (4.60-6.20); Red Cell Distribution Width 21.6 % (11.5-17.5); Red Cell Distribution Width-SD 59.4 fL
[2025-02-14 08:37] LABS: Albumin Level 3.9 g/dl (3.5-5.0); Chloride 103 mmol/L (98-107); Potassium 4.5 mmoL/L (3.5-5.1); Sodium 134 mmol/L (136-145)
[2025-02-14 08:40] LABS: Alanine Aminotransferase 23 U/L (12-78); Albumin/Globulin Ratio 1.1 (1.1-1.8); Alkaline Phosphatase 66 U/L (38-126); Anion Gap 14.5 mEq/L (5-15); Aspartate Amino Transferase 40 U/L (17-59); Bilirubin,Total 1.8 mg/dl (0.2-1.3); Blood Urea Nitrogen 9 mg/dl (9-20); Carbon Dioxide 21 mmol/L (22.0-30.0); Creatinine Clearance Estimated 106 mL/min (50-200); Estimated Glomerular Filt Rate 85 ml/min (>60); GFR (African American) 102 ML/MIN (>60); Globulin 3.5 g/dL (1.3-3.2); Glucose 134 mg/dl (74-100); Total Protein,Serum 7.4 g/dl (6.3-8.2)
[2025-02-14 09:10] VITALS: BP 142/72; PULSE 88; RESP 18; O2SAT 96
[2025-02-14 09:39] LABS: Activated Partial Thrombo Time 49.2 seconds (22.8-30.6); INR 1.74 (0.9-1.1); Prothrombin Time 18.4 seconds (10.1-12.5)
== END 2025-02-14 09:10 ==
LOC: INF 07:59
PROVIDERS: Internal Medicine; PCP Family Medicine; Visit Provider Internal Medicine Medical Oncology
DX: K74.60 Unspecified cirrhosis of liver (principal)
CPT/HCPCS: 80053; 82105; 85025; 85610; 85730; 96365; J1756

== ENCOUNTER 2025-02-15 11:00 | Outpatient (RCR) | payer MEDICARE, BC, SELFPAY | END 2025-02-15 23:59 | disposition home or self-care (01) | LOC: PT 11:00 | PROVIDERS: PCP Family Medicine; Visit Provider Orthopaedic Surgery Adult Reconstructive Orthopaedic Surgery | DX: Z96.652 Presence of left artificial knee joint (principal) | CPT/HCPCS: 97110; 97140 ==

== ENCOUNTER 2025-02-21 07:16 | Outpatient (CLI) | payer MEDICARE, BC, SELFPAY ==
--- OUTSIDE RECORDS SUMMARY | 2025-02-21 07:18 | XMS_ITS ---
Author Organization [facility] , [facility] Address [address] [place] [address] Phone Care Team Providers Care Rodent Exterminator Name Role Phone Unavailable Unavailable Unavailable Problems Includes: Active, inactive, and resolved Problems All Visits Onset Date Resolved Date Provider Condition S tatus Joint Pain in the Right Knee 03/01/2024 Nhi FLYNN Active Last Documented On 4 11:30AM ; [facility] Joint Pain in the Left Knee 03/01/2024 Nhi FLYNN Active Last Documented On 4 11:31AM ; [facility], [facility] Plan of Treatment Instructions to patient Lose weight Last Documented On 4 8:41AM ; [facility], [facility] Assessments Includes: Assessments for all patient encounters Findings Encounter Date Overweight Physician Specified with Duarte Lozada MD 01/22/2024 Last Documented On 4 9:15AM ; [facility], [facility] Instructions Includes: Instructions for all patient encounters Instructions to patient Lose weight Last Documented On 4 8:41AM ; [facility], [facility] Medical Equipment - Implanted Devices Includes: Current and historical Devices No Medical Equipment Recorded Medications Includes: Current and historical Medications Current Medications (continue as prescribed) Xarelto 20 MG Oral Tablet 01/07/2024 Provider: Diagnosis: Last Documented On 4 8:40AM By Radha Lee ; [facility], [facility] Potassium Chloride ER 10 MEQ Oral Tablet Extended Release 12/22/2023 Provider: MILAGROS BERMUDEZ MD Diagnosis: Last Documented On 4 8:40AM By Radha Lee ; [facility], [facility] Losartan Potassium 100 MG Oral Tablet 12/18/2023 Pro vider: Diagnosis: Last Documented On 4 8:40AM By Radha Lee ; [facility], [facility] Furosemide 40 MG Oral Tablet 11/20/2023 Provider: KAELYN LOWE MD Diagnosis: Last Documented On 4 8:40AM By Radha Lee ; [facility], [facility] Bisoprolol Fumarate 10 MG Oral Tablet 11/04/2023 Pro vider: Diagnosis: Last Documented On 4 8:40AM By Radha Lee ; [facility], [facility] Past Medications on file Bumetanide 2 MG Oral Tablet 01/13/2024 - 02/25/2024 Pr ovider: Diagnosis: Last Documented On 4 8:03AM By Jeramy Goldberg ; [facility], [facility] Nystatin [id number] UNIT/ML Mouth/Throat Suspension 01/13/2024 - 02/25/2024 Provider: MILAGROS SHARMA RN, MD Diagnosis: Last Documented On 4 8:03AM By Jeramy Goldberg ; [facility], [facility] dexAMETHasone 4 MG Oral Tablet 01/07/2024 - 02/25/2024 Provider: MILAGROS BERMUEDZ MD Diagnosis: Last Documented On 4 8:04AM By Jeramy Goldberg ; [facility], [facility] predniSONE 50 MG Oral Tablet 01/01/2024 - 02/25/2024 Arya dixon: MILAGROS BERMUDEZ MD Diagnosis: Last Documented On 4 8:04AM By Jeramy Goldberg ; [facility], [facility] Potassium Chloride ER 10 MEQ Oral Tablet Extended Release 12/22/2023 - 02/25/2024 Provider: MILAGROS SHARMA RN, MD Diagnosis: Last Documented On 4 8:04AM By Jeramy Goldberg ; [facility], [facility] Eliquis DVT/PE Starter Pack 5 MG Oral Tablet Therapy Pack 12/11/2023 - 02/25/2024 Provider: Diagnosis: Last Documented On 4 8:04AM By Jeramy Goldberg ; [facility], [facility] metroNIDAZOLE 500 MG Oral Tablet 11/26/2023 - 02/25/20 Provider: JADA CORTEZ Diagnosis: Last Documented On 4 8:05AM By Jeramy Goldberg ; [facility] Ondansetron HCl 4 MG Oral Tablet 11/26/2023 - 02/25/20 24 Provider: JADA CORTEZ Diagnosis: Last Documented On 4 8:05AM By Jeramy Goldberg ; [facility] Medications Administered Includes: Administered Medications in patient's chart No Administered Medications Recorded Vital Signs Includes: Vital Signs from 02/22/2024 through 02/21/2025 Vital Name 03/01/2024 11:31A Blood Pressure Sitting (mmHg) 124/68 Pulse Rate-Sitting (bpm) 72 Height (in) 73 Weight (lb) 251 Body Mass Index 33.1 Body Surface Area 2.4 Oxygen Saturation (%) 98 Last Documented: On 03/01/2024 11:44A M ; [facility] Results Includes: Results from 02/22/2024 through 02/21/2025 No Results Recorded For Specified Dates History of Present Illness History of Present Illness not supported for this document type No History of Present Illness Recorded Social History Description Last Updated Tobacco non-user 01/22/2024 Last Documented On 4 9:15AM ; [facility] Smoking Status Unknown Medical History [...] No Known Allergies Encounters Includes: Encounters from 02/22/2024 through 02/21/2025 Encounter Provider Location Date Check-In Time Check-Out Time Diagnosis [facility] 9:57AM 11:03AM Insurance Includes: Active Insurance Policies Plan Name Member ID Group # Subscriber Relationship Effect leigh Dates - [facility] [id number] KAELYN Parekh Clinical Notes Includes: Signed Clinical Notes starting from 10/16/2022 * Progress note Date Encounter Last Documented by 03/01/2024 Pre Admission Testing Last docum ented on 03/02/2024; 1:55 PM, Nhi FLYNN; [facility] Chief Complaint The Chief Complaint [...]
--- OUTSIDE RECORDS SUMMARY | 2025-02-21 07:18 | XMS_ITS | Clinical Summary ---
Author Organization [facility] Address [address] [place] [address] Phone Care Team Providers Care Rotary Envelope Machine Operator Name Role Phone Unavailable Unavailable Unavailable Reason for Visit and Chief Complaint The Chief Complaint is: Left knee pain Problems Includes: Problems addressed during this encounter and other active Problems Current Visit Onset Date Resolved Date Provider Kevin ward Status Joint Pain in the Right Knee 03/01/2024 Nhi FLYNN Active Last Documented On 4 11:30AM ; [facility] Joint Pain in the Left Knee 03/01/2024 Nhi FLYNN Active Last Documented On 4 11:31AM ; [facility] Plan of Treatment No Plan of Treatment Recorded Assessments Includes: Assessments from this encounter Findings 1. Preoperative Exam- Pt underwent preoperative laboratory workup and diagnostic studies. - Last Documented On 03/02/2024 1:55PM ; [facility] 2. H/o DVT- Postoperative anticoagulation per Dr Lozada. - Last Documented On 03/02/2024 1:55PM ; [facility] 3. CAD- Cardiac Stents x 3 approx 5 years ago. Pt received cardiac clearance from Dr Guerrier. - Last Documented On 03/02/2024 1:55PM ; [facility] 4. Cirrhosis- Pt is being referred to GI by Dr Bermudez. - Last Documented On 03/02/2024 1:55PM ; [facility] 5. HTN- Continue Losartan and Bisoprolol. - Last Documented On 03/02/2024 1:55PM ; [facility] 6. ITP- Pt needs Heme/Onc Clearance from Dr Bermudez. - Last Documented On 03/02/2024 1:55PM ; [facility] Left Knee Pain secondary to DJD- Pt surgery cancelled for his comorbidities. This patient should not be rescheduled until/unless he is cleared by Dr Bermudez and will likely need to be at the hospital at that time. - Last Documented On 03/02/2024 1:55PM ; [facility] ASC Questions - Last Documented On 03/02/2024 1:55PM ; [facility] Does the patient have any additional hardware in their body? Dental Implants - Last Documented On 03/02/2024 1:55PM ; [facility] Is the patient a Diabetic? No - Last Documented On 03/02/2024 1:55PM ; [facility] Is the patient on a Semaglutide? No - Last Documented On 03/02/2024 1:55PM ; [facility] Has the patient ever been treated for MRSA? No - Last Documented On 03/02/2024 1:55PM ; [facility] Has the patient ever smoked? No - Last Documented On 03/02/2024 1:55PM ; [facility] Does the patient drink daily ETOH? Quit 3 months ago - Last Documented On 03/02/2024 1:55PM ; [facility] Do you have a h/o GIB following NSAIDs use? No - Last Documented On 03/02/2024 1:55PM ; [facility] Does the patient have a clear discharge plan that includes having someone drop them off for surgery, pick them up, and stay with them 72 hrs. This person will have to be able to cook meals, assist in getting the patient to and from the restroom and give medications. Yes, Darryl Roca - Last Documented On 03/02/2024 1:55PM ; [facility] Medical Equipment - Implanted Devices Includes: Current Devices No Medical Equipment Recorded Medications Includes: Medications discussed during this encounter and other current Medications Current Medications (continue as prescribed) Xarelto 20 MG Oral Tablet 01/07/2024 Provider: Diagnosis: Last Documented On 4 8:40AM By Radha BLANCHARD [facility] Potassium Chloride ER 10 MEQ Oral Tablet Extended Release 12/22/2023 Provider: MILAGROS BERMUDEZ MD Diagnosis: Last Documented On 4 8:40AM By Radha Lee ; [facility] Losartan Potassium 100 MG Oral Tablet 12/18/2023 Pro vider: Diagnosis: Last Documented On 4 8:40AM By Radha Lee ; [facility] Furosemide 40 MG Oral Tablet 11/20/2023 Provider: KAELYN LOWE MD Diagnosis: Last Documented On 4 8:40AM By Radha Lee ; [facility] Bisoprolol Fumarate 10 MG Oral Tablet 11/04/2023 Pro vider: Diagnosis: Last Documented On 4 8:40AM By Radha Lee ; [facility] Medications Administered Includes: Administered Medications from this encounter No Administered Medications Recorded Vital Signs Includes: Vital Signs from this encounter Vital Name 03/01/2024 11:31A Blood Pressure Sitting (mmHg) 124/68 Pulse Rate-Sitting (bpm) 72 Height (in) 73 Weight (lb) 251 Body Mass Index 33.1 Body Surface Area 2.4 Oxygen Saturation (%) 98 Last Documented: On 03/01/2024 11:44A M ; [facility] Results Includes: Results discussed during [...] 01/22/2024 Last Documented On 4 10:46AM ; [facility] Smoking Status Unknown Medical History Includes: Medical History addressed during this encounter Description Last Updated HTNCADDVT 03/01/2024 Last Documented On 4 10:52AM ; [facility] Family History Includes: Family History addressed [...] Time Diagnosis Pre Admission Testing Nhi FLYNN [facility] 03/01/20 24 9:57AM 11:03AM Insurance Includes: Active Insurance Policies Plan Name Member ID Group # Subscriber Relationship Effect leigh Dates - [facility] [id number] KAELYN KAN Self Clinical Notes Includes: Clinical Notes from this encounter * Progress note Date Encounter Last Documented by 03/01/2024 Pre Admission Testing Last docum ented on 03/02/2024; 1:55 PM, Nhi FLYNN; [facility] Chief Complaint The Chief Complaint [...] the restroom and give medications. Yes, Darryl Rcoa
--- OUTSIDE RECORDS SUMMARY | 2025-02-21 07:18 | XMS_ITS | Clinical Summary ---
Author Organization [facility] , [facility] Address [address] [place] [address] Phone Care Team Providers Care Vice President Of Software Engineering Name Role Phone Unavailable Unavailable Unavailable Reason for Visit and Chief Complaint NEW PATIENT Problems Includes: Problems addressed during this encounter and other active Problems All Visits Onset Date Resolved Date Provider Condition S tatus Joint Pain in the Right Knee 03/01/2024 Nhi FLYNN Active Last Documented On 4 11:30AM ; [facility], [facility] Joint Pain in the Left Knee 03/01/2024 Nhi FLYNN Active Last Documented On 4 11:31AM ; [facility], [facility] Plan of Treatment No Plan of Treatment Recorded Assessments Includes: Assessments from this encounter No Assessments Recorded Medical Equipment - Implanted Devices Includes: Current Devices No Medical Equipment Recorded Medications Includes: Medications discussed during this encounter and other current Medications Current Medications (continue as prescribed) Xarelto 20 MG Oral Tablet 01/07/2024 Provider: Diagnosis: Last Documented On 4 8:40AM By Radha Lee ; [facility], [facility] Potassium Chloride ER 10 MEQ Oral Tablet Extended Release 12/22/2023 Provider: MILAGROS BLANK MD Diagnosis: Last Documented On 4 8:40AM By Radha Lee ; [facility], [facility] Losartan Potassium 100 MG Oral Tablet 12/18/2023 Pro vider: Diagnosis: Last Documented On 4 8:40AM By Radha Lee ; [facility], [facility] Furosemide 40 MG Oral Tablet 11/20/2023 Provider: KAELYN LOWE MD Diagnosis: Last Documented On 4 8:40AM By Radha Lee ; [facility], [facility] Bisoprolol Fumarate 10 MG Oral Tablet 11/04/2023 Pro vider: Diagnosis: Last Documented On 4 8:40AM By Radha Lee ; [facility], [facility] Medications Administered Includes: Administered Medications from this encounter No Administered Medications Recorded Vital Signs Includes: Vital Signs from this encounter Vital Name 01/19/2006 01:43P Respiration Rate (breaths/min) 16 Height (in) 74 Weight (lb) 235 Body Mass Index (kg/m2) 30.2 Body Surface Area (m2) 2.3 Note: shirin Last Documented: On 01/19/2006 1:39PM ; [facility], [facility] Results Includes: Results discussed [...] Time Diagnosis NEW PATIENT Yolanda Landa MD [facility] 01/20/20 06 10:20AM 2:49PM Insurance Includes: Active Insurance Policies Plan Name Member ID Group # Subscriber Relationship Effect leigh Dates 1 - [facility] [id number] KAELYN KAN Self Clinical Notes Includes: Clinical Notes from this encounter No Clinical Notes Recorded
--- OUTSIDE RECORDS SUMMARY | 2025-02-21 07:19 | XMS_ITS | Continuity of Care Document ---
Author Organization [place] [facility] [place] [facility] [place] Address [address] [facility] [address] [place] [address] Care Team Providers Care Back End Web Developer Name Role Phone [facility] [...] - Labs ordered through with the patient's head up operator helper, Dr. Bermudez. 3) Constipation: Miralax as needed. [...] for HCC. Patient to perform ultrasound at [facility]. Order given to patient today. Not available 02/09/2025 09:58:02 Plan of Treatment Reminders Order Date Submit Date Provider Last Modified By Organization Details Last Modified Time Details Appointments Establ ished Visit 15 min 2024 09:00A M Saeid Gilman MD Not available Not available Not available Lab CMP, serum or plasma 2024 025 [facility], [address], [address], [place], [address], 02/14/2025 10:44:25 CBC w/ auto diff 2024 025 [facility], [address], [address], [place], [address], 02/14/2025 10:44:26 afp (alpha -fetop rotein ) tumor marker , serum or plasma 2024 025 [facility], [address], [address], [place], [address], 02/15/2025 14:25:49 PT/PTT , plasma 2024 025 [facility], [address], [address], [place], [address], 02/14/2025 11:28:54 Referral None record ed. Procedures None record ed. Surgeries None record ed. Imaging US, liver 2024 025 [email or web address] bel [facility] (Scheduling), [address], [place], [address], 02/09/2025 09:55:57 Medication Orders None record ed. Patient TargetsNo targets recorded. Patient InstructionsNo instructions recorded. Reason for Referral None Reported. Problems Name Problem SNOMED Code Status Onset Date Resolution Date Notes Provider Name and Address Organization Details Recorded Time Cirrhosis of liver 64306362 Active 2022 Pablito Mccarthy PA-C [address], [place], [address] , [place] - [facility] [place] [facility] [place] 3 09:35:44 Constipation 61973022 Active 2022 Pablito Mccarthy PA-C [address], [place], [address] , [place] - [facility] [place] [facility] [place] 3 10:54:34 Thrombocytope cris disorder 767131353 Active [address], [place], [address] , [place] - [facility] [place] [facility] [place] 3 10:54:44 Superior mesenteric vein thrombosis 075163131 Active 2022 Pablito Mccarthy PA-C [address], [place], [address] , [place] - [facility] & [place] 3 10:55:43 Gastroesophag eal reflux disease without esophagitis 768040905 Active 2022 Pablito Mccarthy PA-C [address], [place], [address] , [place] - [facility] [place] [facility] [place] 3 09:35:58 Abdominal bloating 802608357 Active 2022 Pablito Mccarthy PA-C [address], [place], [address] , [place] - [facility] & [place] 3 09:36:01 Problem Notes None recorded. Procedures Surgical History Date Name Laterality Status Provider Name and Address Organization Details Recorded Time total knee replacement completed [facility] - [facility] & [place] 02/09/2025 09:27:31 total shoulder replacement completed Kraig Tsai [facility] & [place] 02/09/2025 09:27:47 operation on stomach completed Kraig Medeiros [place] - [facility] [place] [facility] [place] 02/09/2025 09:27:59 Imaging Results None recorded. Procedure [...] Last Updated DateTime 187.96 cm 28.8 kg/m2 680364. 49 g 73 /min 133 mm[Hg] 73 mm[Hg] Kraig ward [facility] [place] 09:28:08 Social History Question Answer Notes LastModified by Organizat ion Details LastModified Time Tobacco Smoking Status Never Smoker Precious mirza, [facility] & [place] 06/25/2023 09:09:55 What Is Your Level Of Alcohol Consumption? None [email or web address] Information not available 06/25/2023 What Is Your Level Of Caffeine Consumption? Occasional [email or web address] Information not available 06/25/2023 Do You Use Any Illicit Or Recreational Drugs? No [email or web address] Information not available 06/25/2023 Do You Or Have You Ever Used Any Other Forms Of Tobacco Or Nicotine? No [email or web address] Information not available 06/25/2023 Sex: Unknown Functional [...] SNOMED-CT Code Diagnosis ICD10 Code Diagnosis Note [id number] Saeid Gilman MD [facility] [address] [address] 02/09/2025 09:08:06 02/09/2025 09:52:00 Cirrhosis of liver 74248502 K74.60 Constipation 33985713 K5 9.00 Thrombocyt openic disorder 105614471 D69.6 Superior m esenteric vein thrombosis 940892484 K55.059 History of gastrointestinal bleed 433600152 Z87.19 Gastroesop hageal reflux disease without esophagitis 890477875 K21.9 Abdominal bloating 34750 9008 R14.0 Hepatic encephalopathy 06237484 K76.82 Ascites 304328899 R18.8 Alcoholic cirrhosis 4200 32250 K70.31 Health Concerns Section Related Observation LastModified by Organization Detai ls LastModified Time None Recorded Concern Status LastModified by Organization Details LastModified Time None Recorded Payers Encounter Date Sequence Insurance Name Policy Number Policy Hidalgo Covered Member ID Hidalgo Member ID Guarantor Name 02/09/2025 1 [place] Solo Ambrose [id number] Solo Ambrose 02/09/2025 2 [place] [id number] Solo Ambrose [id number] Solo Ambrose Notes Date Note Type [...] as 16. He was seeing hematology in [place], [place] and was placed on steroids which [...] increase in abdominal girth. Saeid Gilman MD [address], [place], [address], [facility] [place] [facility] [place] 02/09/2025 10:06:18
--- OUTSIDE RECORDS SUMMARY | 2025-02-21 07:19 | XMS_ITS | Data Portability ---
Author Organization [facility] [place] [facility] [place] [facility] ADMIN Address [address] [place] [id number] Care Team Providers Care Grinder Operator Surface Tool Name Role Phone [facility] Primary Care Provider [phone] Assessment Encounter Date Assessment Date Assessment LastModified [...] needed. 4) Thrombocytopenia: Profound. He sees a administrator social welfare in [place]. Previously improved on steroids. He stopped steroids 2 weeks ago. Obtain CBC now. 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 Following with hematology. [email or web address] Not available 06/25/2023 10:56:17 07/23/2023 07/23/2023 63-year-old [...] bloating. 4) Thrombocytopenia: Profound. He sees a administrator social welfare in [place] Previously improved on steroids. This improved with steroids previously, worsenend when they were stopped. 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 Following with hematology. 6) GERD: Change Nexium to Pantoprazole. [email or web address] Not available 07/23/2023 18:04:22 08/11/2024 08/11/2024 64-year-old [...] HCC. Pt reports recent US abd at [facility]. WIll obtain. Not available 08/11/2024 12:23:52 10/13/2024 [...] HCC. Pt reports recent US abd at [facility]. WIll obtain. Not available 10/13/2024 10:41:40 02/09/2025 [...] - Labs ordered through with the patient's administrator social welfare, Dr. Bermudez. 3) Constipation: Miralax as needed. [...] for HCC. Patient to perform ultrasound at [facility]. Order given to patient today. Not available 02/09/2025 09:58:02 Plan of Treatment Reminders Order Date Submit Date Provider Last Modified By Organization Details Last Modified Time Details Appointments Establ ished Visit 15 min 2024 09:00A M Saeid Gilman MD Not available Not available Not available Lab CMP, serum or plasma 2024 025 [facility], [address], [address], [place], [address], 02/14/2025 10:44:25 CBC w/ auto diff 2024 025 [facility], [address], [address], [place], [address], 02/14/2025 10:44:26 afp (alpha -fetop rotein ) tumor marker , serum or plasma 2024 025 CARO [facility], [address], [address], [place], [address], 02/15/2025 14:25:49 PT/PTT , plasma 2024 025 [facility]O [facility], [address], [address], [place], [address], 02/14/2025 11:28:54 CMP, serum or plasma [address], [address], [place], [address], 08/12/2024 10:04:33 afp (alpha -fetop rotein ) tumor marker , serum or plasma 2023 024 nano [facility], [address], [address], [place], [address], 08/18/2024 09:03:53 PT/INR 2023 024 [facility], [address], [address], [place], [address], 08/18/2024 09:03:53 CBC w/ auto diff 2023 024 [facility], [address], [address], [place], [address], 08/12/2024 09:09:00 hepati tis A virus Ab, qualit ative, immuno assay, serum 2023 024 [facility], [address], [address], [place], [address], 08/14/2024 19:21:40 hepati tis B surfac e Ab, qualit ative, serum 2023 024 [facility], [address], [address], [place], [address], 08/13/2024 12:51:57 CBC [address] (Registration ), [address], [place], [address], 07/02/2023 08:11:07 CMP, serum or plasma [address] (Registration ), [address], [place], [address], 07/02/2023 08:11:07 PT/INR [address] (Registration ), [address], [place], [address], 07/02/2023 08:11:07 afp (alpha -fetop rotein ), serum [address] (Registration ), [address] [place], [address], 07/02/2023 08:11:07 HUE (antin uclear antibo dies) screen , serum [address] (Registration ), [address] [place], [address], 07/02/2023 08:11:07 igg, quanti tative , serum [address] (Registration ), [address] [place], [address], 07/02/2023 08:11:08 actin smooth muscle Ab, serum [address] (Registration ), [address] [place], [address], 07/02/2023 08:11:08 mitoch ondria l Ab, serum [address] (Registration ), [address] [place], [address], 07/02/2023 08:11:08 hemoch romato sis mutati on (hfe), blood/ tissue [address] (Registration ), [address] [place], [address], 07/02/2023 08:11:08 iron + TIBC + ferrit in, serum [address] (Registration ), [address] [place], [address], 07/02/2023 08:11:08 alpha- 1-anti trypsi n (aat), QN, serum [address] (Registration ), [address], [place], [address], 07/02/2023 08:11:08 alpha- 1-anti trypsi n (aat) phenot ype, serum [address] (Registration ), [address], [place], [address], 07/02/2023 08:11:09 hepati tis B surfac e Ab, quanti tative , serum [address] (Registration ), [address] [facility], [place], [address], 07/02/2023 08:11:09 hepati tis A Ab, total, serum [address] (Registration ), [address] [facility], [place], [address], 07/02/2023 08:11:09 hepati tis (A+B+C ) panel, serum [address] (Registration ), [address] [facility], [place], [address], 07/02/2023 08:11:09 Referral None record ed. Procedures None record ed. Surgeries None record ed. Imaging US, liver 2024 025 [email or web address] [facility] (Scheduling), [address], [place], [address], 02/09/2025 09:55:57 US, liver 2022 023 [facility] (Scheduling), [address], [place], [address], 07/07/2023 10:31:32 Medication Orders Xifaxa n 550 mg tablet 2023 025 [facility] #[id number], [address] [place], [address], 02/09/2025 09:26:24 Dexila nt 60 mg capsul e, delaye d releas e 2023 024 [facility] #[id number], [facility] [place], [address], 08/11/2024 11:25:44 simeth icone 125 mg capsul e 2022 023 [place] [address] [id number], [address], [id number], 02/09/2025 09:26:02 pantop razole 40 mg tablet ,delay ed releas e 2022 023 [place] [address] [id number], [address], [id number], 02/09/2025 09:22:38 Patient TargetsNo targets recorded. Patient InstructionsNo instructions recorded. Reason for Referral None Reported. Results Created Date Observation Date Name Description Value Unit Range Abnormal Flag Note LastModifiedBy Organization Detail LastModifiedTime 07/15/20 24 07/15/2024 BHAVANI PREP TISSU E bhavani prep tissue NEGATI VE negati ve Not Available [facility] ([facility]) [address], [place], [address], 07/15/2024 17:33:57 07/07/20 23 07/07/2023 US, liver No observ ation record ed. [facility] [address], [place], [address], 08/28/2023 14:46:27 Result Notes None recorded. Problems Name Problem SNOMED Code Status Onset Date Resolution Date Notes Provider Name and Address Organization Details Recorded Time Cirrhosis of liver 06678087 Active [address], [place], [place], [address] [place] [address] , [facility] - [facility] & [place] 3 09:35:44 Constipation 26771709 Active [address], [place] [address] , [place] - [facility] & [place] 3 10:54:34 Thrombocytope cris disorder 557469620 Active [address], [place] [address] , [facility] - [facility] & [place] 3 10:54:44 Superior mesenteric vein thrombosis 005544726 Active [address], [place] [address] , [facility] - [facility] & [place] 3 10:55:43 Gastroesophag eal reflux disease without esophagitis 515461788 Active [address], [place] [address] , [facility] - [facility] & [place] 3 09:35:58 Abdominal bloating 165733540 Active [address], [place] [address] , [place] - [facility] & [place] 3 09:36:01 Problem Notes None recorded. Procedures Surgical History Date Name Laterality Status Provider Name and Address Organization Details Recorded Time total knee replacement completed [facility] - [facility] & [place] 02/09/2025 09:27:31 total shoulder replacement completed [facility] - [facility] & [place] 02/09/2025 09:27:47 [facility] on stomach [facility] [place] 02/09/2025 09:27:59 Imaging Results Imaging Date Name Status LastModified by Organiz ation Details LastModified Time 07/07/2023 US, liver completed [facility] [address], [place], [address], 08/28/2023 14:46:27 Procedure Notes None recorded. Medical [...] Updated DateTime 3 187.96 cm 29.8 kg/m2 074819. 51 g 97.5 [degF] 72 /min 96 % 96 % 69 /min 104 mm[Hg] 67 mm[Hg] Precious Faye [place] [facility] 3 09:10:10 Date Recorded Body weight Body mass index (BMI) Body height Heart rate Body temperature Oxygen saturation Oxygen saturation in Arterial blood by Pulse oximetry Heart rate Systolic blood pressure Diastolic blood pressure Provider Name and Address Organization Details Last Updated DateTime 4 357503. 2 g 29.7 kg/m2 187.96 cm 109 /min 98.1 [degF] 95 % 95 % 100 /min 164 mm[Hg] 76 mm[Hg] [facility] & [place] 4 10:29:44 Date Recorded Body height Body mass index (BMI) Body weight Body temperature Heart rate Systolic blood pressure Diastolic blood pressure Provider Name and Address Organization Details Last Updated DateTime 4 187.96 cm 29.7 kg/m2 057948. 56 g 97.3 [degF] 75 /min 146 mm[Hg] 75 mm[Hg] Lisha Shell [facility] & [place] 4 09:10:59 Date Recorded Body height Body mass index (BMI) Body weight Heart rate Systolic blood pressure Diastolic blood pressure Provider Name and Address Organization Details Last Updated DateTime 5 187.96 cm 28.8 kg/m2 818980. 49 g 73 /min 133 mm[Hg] 73 mm[Hg] Kraig [facility] & [place] 5 09:28:08 Social History Question Answer Notes LastModified by Organizat ion Details LastModified Time Tobacco Smoking Status Never Smoker Precious Faye [facility] & [place] 06/25/2023 09:09:55 What Is Your Level Of Alcohol Consumption? None [email or web address] Information not available 06/25/2023 What Is Your Level Of Caffeine Consumption? Occasional [email or web address] Information not available 06/25/2023 Do You Use Any Illicit Or Recreational Drugs? No [email or web address] Information not available 06/25/2023 Do You Or Have You Ever Used Any Other Forms Of Tobacco Or Nicotine? No [email or web address] Information not available 06/25/2023 Sex: Unknown Functional [...] SNOMED-CT Code Diagnosis ICD10 Code Diagnosis Note [id number] Saeid Gilman MD [facility] [address] [address] 06/01/2023 08:33:54 06/01/2023 13:05:24 [id number] Pablito Mccarthy PA-C [facility] [address] [address] 06/25/2023 08:46:19 06/25/2023 09:47:01 Cirrhosis of liver 81750357 K74.60 Constipation 60847473 K5 9.00 Thrombocyt openic disorder 849760238 D69.6 Superior m esenteric vein thrombosis 528226861 K55.059 History of gastrointestinal bleed 824598559 Z87.19 [id number] Pablito Mccarthy PA-C [facility] [address] [address] 07/23/2023 09:01:42 07/23/2023 10:12:53 Cirrhosis of liver 93725668 K74.60 Constipation 20502148 K5 9.00 Thrombocyt openic disorder 278060875 D69.6 Superior m esenteric vein thrombosis 083699871 K55.059 History of gastrointestinal bleed 534724423 Z87.19 Gastroesop hageal reflux disease without esophagitis 269850698 K21.9 Abdominal bloating 14870 9008 R14.0 [id number] Saeid Gilman MD [facility] [address] [address] 08/11/2024 10:19:21 08/11/2024 11:42:38 Cirrhosis of liver 89423723 K74.60 Constipation 45448649 K5 9.00 Thrombocyt openic disorder 948690747 D69.6 Superior m esenteric vein thrombosis 928998087 K55.059 History of gastrointestinal bleed 326564698 Z87.19 Gastroesop hageal reflux disease without esophagitis 773905766 K21.9 Abdominal bloating 10000 9008 R14.0 Hepatic encephalopathy 69433529 K76.82 Ascites 545789740 R18.8 [id number] Saeid Gilman MD [facility] [address] [address] 10/13/2024 08:57:09 10/13/2024 09:43:50 Cirrhosis of liver 87999650 K74.60 Constipation 66468940 K5 9.00 Thrombocyt openic disorder 023749317 D69.6 Superior m esenteric vein thrombosis 978384527 K55.059 History of gastrointestinal bleed 711303260 Z87.19 Gastroesop hageal reflux disease without esophagitis 742203571 K21.9 Abdominal bloating 29432 9008 R14.0 Hepatic encephalopathy 79316756 K76.82 Ascites 377405431 R18.8 [id number] Saeid Gilman MD [facility] [address] [address] 02/09/2025 09:08:06 02/09/2025 09:52:00 Cirrhosis of liver 21898070 K74.60 Constipation 04033000 K5 9.00 Thrombocyt openic disorder 692573365 D69.6 Superior m esenteric vein thrombosis 954081025 K55.059 History of gastrointestinal bleed 380817816 Z87.19 Gastroesop hageal reflux disease without esophagitis 940982198 K21.9 Abdominal bloating 48737 9008 R14.0 Hepatic encephalopathy 05653350 K76.82 Ascites 966696205 R18.8 Alcoholic cirrhosis 4200 48469 K70.31 Health Concerns Section Related Observation LastModified by Organization Detai ls LastModified Time None Recorded Concern Status LastModified by Organization Details LastModified Time None Recorded Advance Directives Directive None Recorded Payers Encounter Date Sequence Insurance Name Policy Number Policy Hidalgo Covered Member ID Hidalgo Member ID Guarantor Name 06/25/2023 2 [facility] [employer] [facility] - [employer] [place] (PPO) Halie Banda [id number] Solo [place] 07/23/2023 2 [employer] EMPLOYEE CLAIMS - [employer] [place]OSS [place] (PP[place]) Halie Banda [id number] Solo [place] 08/11/2024 2 [facility] EMPL[employer]EE CLAIMS - [place] (PP[place]) Halie Banda [id number] Solo [place] 08/11/2024 1 [place] Solo Ambrose [id number] Solo [place]rose 10/13/2024 1 [place] Solo Ambrose [id number] Solo [place]rose 10/13/2024 2 [place] [id number] Solo Ambrose [id number] Solo [place] 02/09/2025 1 [place] Solo Ambrose [id number] Solo [place] 02/09/2025 2 [place] [id number] Solo Ambrose [id number] Solo Ambrose Notes Date Note Type [...] as 16. He was seeing hematology in [place] and was [place] on steroids which [...] improved with bowel movements. Pablito Mccarthy PA-C [address], [place], [address], [place] [facility] [place] [facility] [place] 06/25/2023 10:56:47 07/23/2023 text/html PREVIOUS ( 3): [...] as 16. He was seeing hematology in [place] and was [place] on steroids which [...] further disposition of care. Pablito Mccarthy PA-C [address], [place], [address], [place] [facility] [place] [facility] [place] 07/23/2023 18:04:40 08/11/2024 text/html PREVIOUS ( 3): [...] as 16. He was seeing hematology in [place] and was placed on steroids which [...] Sleep cycle is altered. Saeid Gilman MD [address], [place], [address], [facility] - [place] [facility] [place] 08/11/2024 12:24:41 10/13/2024 text/html PREVIOUS ( 3): [...] as 16. He was seeing hematology in [place] and was placed on steroids which [...] He otherwise feels well. Saeid Gilman MD [address], [place], [address], [place] [facility] [place] 10/13/2024 10:41:59 02/09/2025 text/html PREVIOUS ( 3): [...] as 16. He was seeing hematology in [place] and was placed on steroids which [...] increase in abdominal girth. Saeid Gilman MD [address], [place], [address], [facility] - [facility] - [place] [facility] [place] 02/09/2025 10:06:18
--- OUTSIDE RECORDS SUMMARY | 2025-02-21 07:19 | XMS_ITS | Data Portability ---
Author Organization [facility], [facility] Address [address] [place] [address] Assessment Encounter Date Assessment Date Assessment LastModified [...] Dr. Ortiz who is an orthopedic in [place]. Patient states that Dr. Ortiz said he was not a good candidate for surgery at this time due to his low platelet count. Dr. Ortiz has suggested that patient come to [facility] pain management for evaluation for genicular [...] and worsens his discomfort. Vernon number is [id number]. Vernon has been reviewed and is appropriate [...] Ortiz Orthopedic office prior to referral to [facility] pain management for genicular nerve blocks [...] Procedures sacroiliac joint injection (PROC) 2022 023 [email or web address] Not available 3 08:23:47 genicular nerve block (PROC) 2022 023 CARO Not available 4 05:01:07 Surgeries None recorded. Imaging None recorded. Medication Orders None recorded. Patient TargetsNo targets recorded. Patient Instructions Encounter Date Encounter Id Patient Instructions Last Modified By Organization Details Last Modified Time 09/07/2023 [id number] back pain: care instructions abux Not available [...] Organization Details Recorded Time Osteoarthritis of knee 506378894 Active 2022 Jac Ramos MD [address], [address], [place] - [facility] 3 09:51:28 Degeneration of lumbar intervertebral disc 47743565 Active 2022 Jac Ramos MD [address], [address], [place] [facility] 3 09:51:29 Inflammation of sacroiliac joint 08742759 Active 2022 Jac Ramos MD [address], [address], [place] [facility] 3 09:51:30 Problem Notes None recorded. Procedures Surgical History Date Name Laterality Status Provider Name and Address Organization Details Recorded Time 3 Diagnostic SI Joint Injection Under Fluoroscopy completed Jac Ramos MD [address] [facility] [address], [place], [address], [place] [facility] 10/23/2023 01:16:06 3 Genicular Nerve Block completed Jac Ramos MD [address] [facility], [place], [address], [place] [facility] 10/08/2023 09:47:45 [...] % 97 % 185.42 cm 30.6 kg/m2 704652. 43 g 76 /min 0 136 mm[Hg] [...] Updated DateTime 3 185.42 cm 30.6 kg/m2 804991. 43 g 97 % 97 % 0 [...] Updated DateTime 3 185.42 cm 30.6 kg/m2 760085. 43 g 97 % 97 % 0 76 /min 124 mm[Hg] 79 mm[Hg] TRENA BRANCH [place] - [facility] 3 09:10:16 Social History Question Answer Notes LastModified by Organizat ion Details LastModified Time Tobacco Smoking Status Never Smoker TRENA BRANCH null, [place] [facility] 09/04/2023 08:56:07 What Is Your Level Of Alcohol Consumption? None [email or web address] Information not available 09/04/2023 In The 14 Days Before Symptom Onset, Have You Had Close Contact With A Laboratory-confirm ed COVID-19 While That Case Was Ill? No [email or web address] Information n ot available 09/04/2023 In The 14 Days Before Symptom Onset, Have You Had Close Contact With A Person Who Is Under Investigation For COVID-19 While That Person Was Ill? No [email or web address] Information not available 09/04/2023 Have You Been To An Area Known To Be High Risk For COVID-19? No [email or web address] Information not available 09/04/2023 Are You Currently Employed? Yes [email or web address] Information not available 09/04/2023 Do You Use Any Illicit Or Recreational Drugs? No [email or web address] Information not available 09/04/2023 Do You Or Have You Ever Used Any Other Forms Of Tobacco Or Nicotine? No [email or web address] Information not available 09/04/2023 Sex: Unknown Functional [...] Thyroid Problems N Anemia N Heart Attack (MD) N Diabetes Y Heart Disease Y Hypertension Y Osteoporosis N Past Encounters Encounter ID Performer Location Encounter Start Date Encounter Closed Date Diagnosis/Indication Diagnosis SNOMED-CT Code Diagnosis ICD10 Code Diagnosis Note [id number] Jac Ramos MD [address] MERRITT [address] [place] [address] 09/07/2023 09:33:07 09/07/2023 10:28:51 Knee pain 51177529 M25.562 Osteoarthr itis of knee 406079865 M17.9 Inflammati on of sacroiliac joint 41300398 M46.1 [id number] Jac Ramos MD [address] [place] [address] 10/08/2023 08:30:42 10/08/2023 09:50:19 Osteoarthritis of knee 797407283 M17.9 Degenerati on of lumbar intervertebral disc 16194398 M51.36 Inflammati on of sacroiliac joint 66511492 M46.1 [id number] Jac Ramos MD [address] [place] [address] 10/22/2023 08:36:44 10/22/2023 10:19:22 Degeneration of lumbar intervertebral disc 68518184 M51.36 Osteoarthr itis of knee 384259935 M17.9 Health Concerns Section Related Observation LastModified by Organization Detai ls LastModified Time None Recorded Concern Status LastModified by Organization Details LastModified Time None Recorded Advance Directives Directive None Recorded Payers Encounter Date Sequence Insurance Name Policy Number Policy Hidalgo Covered Member ID Hidalgo Member ID Guarantor Name 09/07/2023 1 [place] [id number] Solo SimonHalie [id number] Solo Halie 10/08/2023 1 [place] [id number] Solo Halie [id number] Solo Halie 10/22/2023 1 [place] [id number] Solo Halie [id number] Solo SimonHalie Notes Date Note Type [...] Related:no Working:no Jac Ramos MD [address], [address], [place] - [facility] 09/07/2023 11:21:56 [...] (Self Pay) Jac Ramos MD [address], [address], [place] [facility] 10/08/2023 09:59:09 [...] stress Previous Injury:no prior injury to backKneeReported bypatient.Location[facility] Quality:aching; throbbing Severity:pain level 0/10 Timing:cannot identify Context:cannot identify Alleviating Factors:sitting; lying down; position change Aggravating Factors:standing; walking Associated Symptoms:no weakness; no numbness; no tingling; no swelling; no redness; no warmth; no ecchymosis; no catching/locking; no popping/clicking; no buckling; no grinding;instability Previous Surgery:none Work Related:no Working:no Patient presents for a Right SI Joint Inj Jac Ramos MD [address], [address], [place] [facility] 10/23/2023 01:17:37
--- OUTSIDE RECORDS SUMMARY | 2025-02-21 07:19 | XMS_ITS | Clinical Summary ---
Author Organization [facility] Address [address] [place] [address] Phone Care Team Providers Care Tax Examiner Name Role Phone Unavailable Unavailable Unavailable Reason for Visit and Chief Complaint The Chief Complaint is: Left knee pain Problems Includes: Problems addressed during this encounter and other active Problems All Visits Onset Date Resolved Date Provider Condition S tatus Joint Pain in the Right Knee 03/01/2024 Nhi FLYNN Active Last Documented On 4 11:30AM ; [facility], [facility] Joint Pain in the Left Knee 03/01/2024 Nhi FLYNN Active Last Documented On 4 11:31AM ; [facility], [facility] Plan of Treatment He has end-stage osteoarthritis [...] - Last Documented On 01/22/2024 9:15AM ; [facility], [facility] Instructions to patient Lose weight Last Documented On 4 8:41AM ; [facility], [facility] Assessments Includes: Assessments from this encounter Findings - Overweight - Last Documented On 01/22/2024 9:15AM ; [facility], [facility] Instructions Includes: Instructions from this encounter Instructions to patient Lose weight Last Documented On 4 8:41AM ; [facility], [facility] Medical Equipment - Implanted Devices Includes: Current Devices No Medical Equipment Recorded Medications Includes: Medications discussed during this encounter and other current Medications Current Medications (continue as prescribed) Xarelto 20 MG Oral Tablet 01/07/2024 Provider: Diagnosis: Last Documented On 4 8:40AM By Timetrasif Lee ; [facility], [facility] Potassium Chloride ER 10 MEQ Oral Tablet Extended Release 12/22/2023 Provider: MILAGROS BLANK MD Diagnosis: Last Documented On 4 8:40AM By Timetria Maxberry ; [facility], [facility] Losartan Potassium 100 MG Oral Tablet 12/18/2023 Pro vider: Diagnosis: Last Documented On 4 8:40AM By Timetria Maxberry ; [facility], [facility] Furosemide 40 MG Oral Tablet 11/20/2023 Provider: KAELYN LOWE MD Diagnosis: Last Documented On 4 8:40AM By Timetria Maxsondra ; [facility], [facility] Bisoprolol Fumarate 10 MG Oral Tablet 11/04/2023 Pro vider: Diagnosis: Last Documented On 4 8:40AM By Timetria Rosa ; [facility], [facility] Medications Administered Includes: Administered Medications from this encounter No Administered Medications Recorded Vital Signs Includes: Vital Signs from this encounter Vital Name 01/22/2024 08:40A Height (in) 73 Weight (lb) 230 Body Mass Index 30.3 Body Surface Area 2.3 Note: tm Last Documented: On 01/22/2024 8:40AM ; [facility], [facility] Results Includes: Results discussed during this encounter [...] 01/22/2024 Last Documented On 4 9:15AM ; [facility] Smoking Status Unknown Procedures and Surgical History Includes: Procedures from this encounter Procedures Code Diagnosis Performing Provider Service L ocation Service Date use of tobacco assessment performed 1000F Last Documented On 4 8:41AM ; [facility] review of medications documented 1160F Last Documented On 4 8:41AM ; [facility] Medical History Includes: Medical History addressed [...] Time Diagnosis Physician Specified Duarte Lozada MD [facility] 01/22/20 24 8:03AM 9:13AM Overweight Insurance Includes: Active Insurance Policies Plan Name Member ID Group # Subscriber Relationship Effect leigh Dates - [facility] [id number] KAELYN KAN Self Clinical Notes Includes: Clinical Notes from this encounter * Progress note Date Encounter Last Documented by 01/22/2024 Physician Specified Last leonie ford on 01/22/2024; 9:15 AM, Duarte Lozada MD; [facility] Chief Complaint The Chief [...] Tablet 5 days, 0 refills - Nystatin [id number] UNIT/ML Mouth/Throat Suspension 7 days, 0 refills [...]
--- OUTSIDE RECORDS SUMMARY | 2025-02-21 07:19 | XMS_ITS ---
Care Plan - [facility] Created on: February 21, 2025 KAELYN KAN : 1960 Sex: Male Author Organization [facility], [facility] Address [address] [place] [address] Phone Care Team Providers Care Mri Technician Name Role Phone Unavailable Unavailable Unavailable
--- NOTE | 2025-02-21 07:24 | US_ITS ---
FINAL REPORT CLINICAL HISTORY: CIRRHOSIS OF LIVER FINDINGS: Sonographic images of the right upper quadrant were obtained. The pancreas is partially obscured. The liver has a nodular peripheral margin likely due to underlying cirrhosis. The gallbladder is contracted without evidence of gallstones. There is no evidence of biliary ductal dilatation.The common duct is normal in caliber. Limited images of the right kidney are unremarkable. IMPRESSION: Incomplete distention of the gallbladder. Nodular appearance to the liver likely due to underlying cirrhosis. Reviewed, Interpreted and Dictated by Carloz Faulkner MD Transcribed by Nichole Spear Authenticated and [facility]
[2025-02-21 08:30] VITALS: BP 137/76; PULSE 81; RESP 18; TEMP 36.7; O2SAT 99
[2025-02-21] MEDS: IRON SUCROSE COMPLEX 200 MG in 0.9 % SODIUM CHLORIDE 100 ML 220 MG IV (08:30)
[2025-02-21] MEDS: SODIUM CHLORIDE 0.9% 50ML BAG 50 ML IV (08:30)
[2025-02-21 09:00] VITALS: BP 132/84; PULSE 76
== END 2025-02-21 09:05 | disposition home or self-care (01) ==
LOC: RAD 07:17 → INF 08:18
PROVIDERS: PCP Family Medicine; Visit Provider Internal Medicine
DX: D69.3 Immune thrombocytopenic purpura (principal)
CPT/HCPCS: 76705; 96365; J1756

== ENCOUNTER 2025-03-01 07:50 | Outpatient (CLI) | payer MEDICARE, BC, SELFPAY ==
--- OUTSIDE RECORDS SUMMARY | 2025-03-01 07:53 | XMS_ITS ---
Author [facility] Address [address] [place] [address] Phone Care Team Providers Care [place] Name Role Phone Unavailable Unavailable Unavailable Problems Includes: Active, inactive, and resolved Problems All Visits Onset Date Resolved Date Provider Condition S tatus Joint Pain in the Right Knee 03/01/2024 Nhi FLYNN Active Last Documented On 4 11:30AM ; [facility] Joint Pain in the Left Knee 03/01/2024 Nhi FLYNN Active Last Documented On 4 11:31AM ; [facility], [facility] Plan of Treatment Instructions to patient Lose weight Last Documented On 4 8:41AM ; [facility], [facility] Assessments Includes: Assessments for all patient encounters Findings Encounter Date Overweight Physician Specified with Duarte Lozada MD 01/22/2024 Last Documented On 4 9:15AM ; [facility], [facility] Instructions Includes: Instructions for all patient encounters Instructions to patient Lose weight Last Documented On 4 8:41AM ; [facility], [facility] Medical Equipment - Implanted Devices Includes: Current and historical Devices No Medical Equipment Recorded Medications Includes: Current and historical Medications Current Medications (continue as prescribed) Xarelto 20 MG Oral Tablet 01/07/2024 Provider: Diagnosis: Last Documented On 4 8:40AM By Radha Lee ; [facility], [facility] Potassium Chloride ER 10 MEQ Oral Tablet Extended Release 12/22/2023 Provider: MILAGROS BERMUDEZ MD Diagnosis: Last Documented On 4 8:40AM By Radha Lee ; [facility], [facility] Losartan Potassium 100 MG Oral Tablet 12/18/2023 Pro vider: Diagnosis: Last Documented On 4 8:40AM By Radha Lee ; [facility], [facility] Furosemide 40 MG Oral Tablet 11/20/2023 Provider: KAELYN LOWE MD Diagnosis: Last Documented On 4 8:40AM By Radha Lee ; [facility], [facility] Bisoprolol Fumarate 10 MG Oral Tablet 11/04/2023 Pro vider: Diagnosis: Last Documented On 4 8:40AM By Radha Lee ; [facility], [facility] Past Medications on file Bumetanide 2 MG Oral Tablet 01/13/2024 - 02/25/2024 Pr ovider: Diagnosis: Last Documented On 4 8:03AM By Jeramy Goldberg ; [facility], [facility] Nystatin [id number] UNIT/ML Mouth/Throat Suspension 01/13/2024 - 02/25/2024 Provider: MILAGROS SHARMA RN, MD Diagnosis: Last Documented On 4 8:03AM By Jeramy Goldberg ; [facility], [facility] dexAMETHasone 4 MG Oral Tablet 01/07/2024 - 02/25/2024 Provider: MILAGROS BERMUDEZ MD Diagnosis: Last Documented On 4 8:04AM By Jeramy Goldberg ; [facility], [facility] predniSONE 50 MG Oral Tablet 01/01/2024 - 02/25/2024 Arya dixon: MILAGROS BERMUDEZ MD Diagnosis: Last Documented On 4 8:04AM By Jeramy Goldberg ; [facility], [facility] Potassium Chloride ER 10 MEQ Oral Tablet Extended Release 12/22/2023 - 02/25/2024 Provider: MILAGROS SHARMA RN, MD Diagnosis: Last Documented On 4 8:04AM By Jeramy Goldberg ; [facility], [facility] Eliquis DVT/PE Starter Pack 5 MG Oral Tablet Therapy Pack 12/11/2023 - 02/25/2024 Provider: Diagnosis: Last Documented On 4 8:04AM By Jeramy Goldberg ; [facility], [facility] metroNIDAZOLE 500 MG Oral Tablet 11/26/2023 - 02/25/20 Provider: JADA CORTEZ Diagnosis: Last Documented On 4 8:05AM By Jeramy Goldberg ; [facility] Ondansetron HCl 4 MG Oral Tablet 11/26/2023 - 02/25/20 24 Provider: JADA CORTEZ Diagnosis: Last Documented On 4 8:05AM By Jeramy Goldberg ; [facility] Medications Administered Includes: Administered Medications in patient's chart No Administered Medications Recorded Vital Signs Includes: Vital Signs from 03/01/2024 through 03/01/2025 Vital Name 03/01/2024 11:31A Blood Pressure Sitting (mmHg) 124/68 Pulse Rate-Sitting (bpm) 72 Height (in) 73 Weight (lb) 251 Body Mass Index 33.1 Body Surface Area 2.4 Oxygen Saturation (%) 98 Last Documented: On 03/01/2024 11:44A M ; [facility] Results Includes: Results from 03/01/2024 through 03/01/2025 No Results Recorded For Specified Dates History of Present Illness History of Present Illness not supported for this document type No History of Present Illness Recorded Social History Description Last Updated Tobacco non-user 01/22/2024 Last Documented On 4 9:15AM ; [facility] Smoking Status Unknown Medical History Includes: [...] No Known Allergies Encounters Includes: Encounters from 03/01/2024 through 03/01/2025 Encounter Provider Location Date Check-In Time Check-Out Time Diagnosis [facility] 9:57AM 11:03AM Insurance Includes: Active Insurance Policies Plan Name Member ID Group # Subscriber Relationship Effect leigh Dates - [facility] [id number] KAELYN Parekh Clinical Notes Includes: Signed Clinical Notes starting from 10/16/2022 * Progress note Date Encounter Last Documented by 03/01/2024 Pre Admission Testing Last docum ented on 03/02/2024; 1:55 PM, Nhi FLYNN; [facility] Chief Complaint The Chief Complaint is: [...]
--- OUTSIDE RECORDS SUMMARY | 2025-03-01 07:53 | XMS_ITS | Clinical Summary ---
Author Organization [facility] Address [address] [place] [address] Phone Care Team Providers Care Director Furniture Name Role Phone Unavailable Unavailable Unavailable Reason for Visit and Chief Complaint The Chief Complaint is: Left knee pain Problems Includes: Problems addressed during this encounter and other active Problems Current Visit Onset Date Resolved Date Provider Kevin ward Status Joint Pain in the Right Knee 03/01/2024 Nhi FLYNN Active Last Documented On 4 11:30AM ; [facility] Joint Pain in the Left Knee 03/01/2024 Nhi FLYNN Active Last Documented On 4 11:31AM ; [facility] Plan of Treatment No Plan of Treatment Recorded Assessments Includes: Assessments from this encounter Findings 1. Preoperative Exam- Pt underwent preoperative laboratory workup and diagnostic studies. - Last Documented On 03/02/2024 1:55PM ; [facility] 2. H/o DVT- Postoperative anticoagulation per Dr Lozada. - Last Documented On 03/02/2024 1:55PM ; [facility] 3. CAD- Cardiac Stents x 3 approx 5 years ago. Pt received cardiac clearance from Dr Guerrier. - Last Documented On 03/02/2024 1:55PM ; [facility] 4. Cirrhosis- Pt is being referred to GI by Dr Bermudez. - Last Documented On 03/02/2024 1:55PM ; [facility] 5. HTN- Continue Losartan and Bisoprolol. - Last Documented On 03/02/2024 1:55PM ; [facility] 6. ITP- Pt needs Heme/Onc Clearance from Dr Bermudez. - Last Documented On 03/02/2024 1:55PM ; [facility] Left Knee Pain secondary to DJD- Pt surgery cancelled for his comorbidities. This patient should not be rescheduled until/unless he is cleared by Dr Bermudez and will likely need to be at the hospital at that time. - Last Documented On 03/02/2024 1:55PM ; [facility] ASC Questions - Last Documented On 03/02/2024 1:55PM ; [facility] Does the patient have any additional hardware in their body? Dental Implants - Last Documented On 03/02/2024 1:55PM ; [facility] Is the patient a Diabetic? No - Last Documented On 03/02/2024 1:55PM ; [facility] Is the patient on a Semaglutide? No - Last Documented On 03/02/2024 1:55PM ; [facility] Has the patient ever been treated for MRSA? No - Last Documented On 03/02/2024 1:55PM ; [facility] Has the patient ever smoked? No - Last Documented On 03/02/2024 1:55PM ; [facility] Does the patient drink daily ETOH? Quit 3 months ago - Last Documented On 03/02/2024 1:55PM ; [facility] Do you have a h/o GIB following NSAIDs use? No - Last Documented On 03/02/2024 1:55PM ; [facility] Does the patient have a clear discharge plan that includes having someone drop them off for surgery, pick them up, and stay with them 72 hrs. This person will have to be able to cook meals, assist in getting the patient to and from the restroom and give medications. Yes, Darryl Roca - Last Documented On 03/02/2024 1:55PM ; [facility] Medical Equipment - Implanted Devices Includes: Current Devices No Medical Equipment Recorded Medications Includes: Medications discussed during this encounter and other current Medications Current Medications (continue as prescribed) Xarelto 20 MG Oral Tablet 01/07/2024 Provider: Diagnosis: Last Documented On 4 8:40AM By Radha [facility] Potassium Chloride ER 10 MEQ Oral Tablet Extended Release 12/22/2023 Provider: MILAGROS BERMUDEZ MD Diagnosis: Last Documented On 4 8:40AM By Radha Lee ; [facility] Losartan Potassium 100 MG Oral Tablet 12/18/2023 Pro vider: Diagnosis: Last Documented On 4 8:40AM By Radha Lee ; [facility] Furosemide 40 MG Oral Tablet 11/20/2023 Provider: KAELYN LOWE MD Diagnosis: Last Documented On 4 8:40AM By Radha Lee ; [facility] Bisoprolol Fumarate 10 MG Oral Tablet 11/04/2023 Pro vider: Diagnosis: Last Documented On 4 8:40AM By Radha Lee ; [facility] Medications Administered Includes: Administered Medications from this encounter No Administered Medications Recorded Vital Signs Includes: Vital Signs from this encounter Vital Name 03/01/2024 11:31A Blood Pressure Sitting (mmHg) 124/68 Pulse Rate-Sitting (bpm) 72 Height (in) 73 Weight (lb) 251 Body Mass Index 33.1 Body Surface Area 2.4 Oxygen Saturation (%) 98 Last Documented: On 03/01/2024 11:44A M ; [facility] Results Includes: Results discussed during this [...] 01/22/2024 Last Documented On 4 10:46AM ; [facility] Smoking Status Unknown Medical History Includes: Medical History addressed during this encounter Description Last Updated HTNCADDVT 03/01/2024 Last Documented On 4 10:52AM ; [facility] Family History Includes: Family History addressed [...] Time Diagnosis Pre Admission Testing Nhi FLYNN [facility] 03/01/20 24 9:57AM 11:03AM Insurance Includes: Active Insurance Policies Plan Name Member ID Group # Subscriber Relationship Effect leigh Dates - [facility] [id number] KAELYN KAN Self Clinical Notes Includes: Clinical Notes from this encounter * Progress note Date Encounter Last Documented by 03/01/2024 Pre Admission Testing Last docum ented on 03/02/2024; 1:55 PM, Nhi FLYNN; [facility] Chief Complaint The Chief Complaint is: Left knee pain. History of Present Illness AKELYN KAN is a 63 year old male. [...]
--- OUTSIDE RECORDS SUMMARY | 2025-03-01 07:53 | XMS_ITS | Clinical Summary ---
Author [facility] Address [address] [place] [address] Phone Care Team Providers Care Culinary Arts Instructor Name Role Phone Unavailable Unavailable Unavailable Reason for Visit and Chief Complaint NEW PATIENT Problems Includes: Problems addressed during this encounter and other active Problems All Visits Onset Date Resolved Date Provider Condition S tatus Joint Pain in the Right Knee 03/01/2024 Nhi FLYNN Active Last Documented On 4 11:30AM ; [facility], [facility] Joint Pain in the Left Knee 03/01/2024 Nhi FLYNN Active Last Documented On 4 11:31AM ; [facility], [facility] Plan of Treatment No Plan of Treatment Recorded Assessments Includes: Assessments from this encounter No Assessments Recorded Medical Equipment - Implanted Devices Includes: Current Devices No Medical Equipment Recorded Medications Includes: Medications discussed during this encounter and other current Medications Current Medications (continue as prescribed) Xarelto 20 MG Oral Tablet 01/07/2024 Provider: Diagnosis: Last Documented On 4 8:40AM By Radha Lee ; [facility], [facility] Potassium Chloride ER 10 MEQ Oral Tablet Extended Release 12/22/2023 Provider: MILAGROS BLANK MD Diagnosis: Last Documented On 4 8:40AM By Radha Lee ; [facility], [facility] Losartan Potassium 100 MG Oral Tablet 12/18/2023 Pro vider: Diagnosis: Last Documented On 4 8:40AM By Radha Lee ; [facility], [facility] Furosemide 40 MG Oral Tablet 11/20/2023 Provider: KAELYN LOWE MD Diagnosis: Last Documented On 4 8:40AM By Radha Lee ; [facility], [facility] Bisoprolol Fumarate 10 MG Oral Tablet 11/04/2023 Pro vider: Diagnosis: Last Documented On 4 8:40AM By Radha Lee ; [facility], [facility] Medications Administered Includes: Administered Medications from this encounter No Administered Medications Recorded Vital Signs Includes: Vital Signs from this encounter Vital Name 01/19/2006 01:43P Respiration Rate (breaths/min) 16 Height (in) 74 Weight (lb) 235 Body Mass Index (kg/m2) 30.2 Body Surface Area (m2) 2.3 Note: shirin Last Documented: On 01/19/2006 1:39PM ; [facility], [facility] Results Includes: Results discussed during this [...] Time Diagnosis NEW PATIENT Yolanda Landa MD [facility] 01/20/20 06 10:20AM 2:49PM Insurance Includes: Active Insurance Policies Plan Name Member ID Group # Subscriber Relationship Effect leigh Dates 1 - [facility] [id number] KAELYN KAN Self Clinical Notes Includes: Clinical Notes from this encounter No Clinical Notes Recorded
--- OUTSIDE RECORDS SUMMARY | 2025-03-01 07:54 | XMS_ITS | Data Portability ---
Author Organization [facility], [facility] Address [address] [place] [address] Assessment Encounter Date Assessment Date Assessment LastModified [...] Dr. Ortiz who is an orthopedic in [place]. Patient states that Dr. Ortiz said he was not a good candidate for surgery at this time due to his low platelet count. Dr. Ortiz has suggested that patient come to [facility] pain management for evaluation for [...] and worsens his discomfort. Vernon number is [id number]. Vernon has been reviewed and is appropriate [...] [facility] Orthopedic office prior to referral to [facility] pain management for genicular nerve [...] Procedures sacroiliac joint injection (PROC) 2022 023 [email or web address] Not available 3 08:23:47 genicular nerve block (PROC) 2022 023 CARO Not available 4 05:01:07 Surgeries None recorded. Imaging None recorded. Medication Orders None recorded. Patient TargetsNo targets recorded. Patient Instructions Encounter Date Encounter Id Patient Instructions Last Modified By Organization Details Last Modified Time 09/07/2023 [id number] back pain: care instructions abux Not available [...] Organization Details Recorded Time Osteoarthritis of knee 097348890 Active 2022 Jac Ramos MD [address], [address], [place] [facility] 3 09:51:28 Degeneration of lumbar intervertebral disc 89685556 Active 2022 Jac Ramos MD [address], [address], [place] [facility] 3 09:51:29 Inflammation of sacroiliac joint 71430088 Active 2022 Jac Ramos MD [address], [address], [place] [facility] 3 09:51:30 Problem Notes None recorded. Procedures Surgical History Date Name Laterality Status Provider Name and Address Organization Details Recorded Time 3 Diagnostic SI Joint Injection Under Fluoroscopy completed Jac Ramos MD [address] [facility], [place], [address], [place] [facility] 10/23/2023 01:16:06 3 Genicular Nerve Block completed Jac Ramos MD [address] [facility], [place], [address], [place] [facility] 10/08/2023 09:47:45 [...] % 97 % 185.42 cm 30.6 kg/m2 323800. 43 g 76 /min 0 136 mm[Hg] [...] Updated DateTime 3 185.42 cm 30.6 kg/m2 686760. 43 g 97 % 97 % 0 [...] Updated DateTime 3 185.42 cm 30.6 kg/m2 485184. 43 g 97 % 97 % 0 76 /min 124 mm[Hg] 79 mm[Hg] TRENA BRANCH [place] - [facility] 3 09:10:16 Social History Question Answer Notes LastModified by Organizat ion Details LastModified Time Tobacco Smoking Status Never Smoker TRENA BRANCH null, [place] [facility] 09/04/2023 08:56:07 What Is Your Level Of Alcohol Consumption? None [email or web address] Information not available 09/04/2023 In The 14 Days Before Symptom Onset, Have You Had Close Contact With A Laboratory-confirm ed COVID-19 While That Case Was Ill? No [email or web address] Information n ot available 09/04/2023 In The 14 Days Before Symptom Onset, Have You Had Close Contact With A Person Who Is Under Investigation For COVID-19 While That Person Was Ill? No [email or web address] Information not available 09/04/2023 Have You Been To An Area Known To Be High Risk For COVID-19? No [email or web address] Information not available 09/04/2023 Are You Currently Employed? Yes [email or web address] Information not available 09/04/2023 Do You Use Any Illicit Or Recreational Drugs? No [email or web address] Information not available 09/04/2023 Do You Or Have You Ever Used Any Other Forms Of Tobacco Or Nicotine? No [email or web address] Information not available 09/04/2023 Sex: Unknown Functional Status None recorded. Mental Status None recorded. Family History Nothing Reported Notes:Cancer Diabetes Hyperl ipidemia Hypertension Medical History Condition Response Coronary Artery Disease Y Gout N Hernia N Head Trauma/Injury N Thyroid Problems N Depression N COPD N Anemia N Heart Attack (ND) N Ulcers N Diabetes Y Anxiety Disorder [...] SNOMED-CT Code Diagnosis ICD10 Code Diagnosis Note [id number] Jac Ramos MD [address] MERRITT [address] [place] [address] 09/07/2023 09:33:07 09/07/2023 10:28:51 Knee pain 78203165 M25.562 Osteoarthr itis of knee 013360455 M17.9 Inflammati on of sacroiliac joint 65900079 M46.1 [id number] Jac Ramos MD [address] [place] [address] 10/08/2023 08:30:42 10/08/2023 09:50:19 Osteoarthritis of knee 222889917 M17.9 Degenerati on of lumbar intervertebral disc 88831353 M51.36 Inflammati on of sacroiliac joint 75808028 M46.1 [id number] Jac Ramos MD [address] [place] [address] 10/22/2023 08:36:44 10/22/2023 10:19:22 Degeneration of lumbar intervertebral disc 76231172 M51.36 Osteoarthr itis of knee 895312975 M17.9 Health Concerns Section Related Observation LastModified by Organization Detai ls LastModified Time None Recorded Concern Status LastModified by Organization Details LastModified Time None Recorded Advance Directives Directive None Recorded Payers Encounter Date Sequence Insurance Name Policy Number Policy Hidalgo Covered Member ID Hidalgo Member ID Guarantor Name 09/07/2023 1 [place] [id number] Solo SimonHalie [id number] Solo Halie 10/08/2023 1 [place] [id number] Solo Halie [id number] Solo Halie 10/22/2023 1 [place] [id number] Solo Halie [id number] Solo SimonHalie Notes Date Note Type [...] Related:no Working:no Jac Ramos MD [address], [address], [place] [facility] 09/07/2023 11:21:56 [...] (Self Pay) Jac Ramos MD [address], [address], [place] [facility] 10/08/2023 09:59:09 [...] stress Previous Injury:no prior injury to backKneeReported bypatient.Location:[facility] Quality:aching; throbbing Severity:pain level 0/10 Timing:cannot identify Context:cannot identify Alleviating Factors:sitting; lying down; position change Aggravating Factors:standing; walking Associated Symptoms:no weakness; no numbness; no tingling; no swelling; no redness; no warmth; no ecchymosis; no catching/locking; no popping/clicking; no buckling; no grinding;instability Previous Surgery:none Work Related:no Working:no Patient presents for a Right SI Joint Inj Jac Ramos MD [address], [address], [place] [facility] 10/23/2023 01:17:37
--- OUTSIDE RECORDS SUMMARY | 2025-03-01 07:54 | XMS_ITS | Data Portability ---
Author Organization [facility] [place] [facility] [place] [facility] Address [address] [place] [address] Care Team Providers Care Touch Up Carver Name Role Phone [facility] Primary [...] needed. 4) Thrombocytopenia: Profound. He sees a infrastructure consultant in [place]. Previously improved on steroids. He stopped steroids 2 weeks ago. Obtain CBC now. 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 Following with hematology. [email or web address] Not available 06/25/2023 10:56:17 07/23/2023 07/23/2023 63-year-old [...] bloating. 4) Thrombocytopenia: Profound. He sees a infrastructure consultant in [place]. Previously improved on steroids. This improved with steroids previously, worsenend when they were stopped. 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 Following with hematology. 6) GERD: Change Nexium to Pantoprazole. [email or web address] Not available 07/23/2023 18:04:22 08/11/2024 08/11/2024 64-year-old [...] HCC. Pt reports recent US abd at [facility]. WIll obtain. Not available 08/11/2024 12:23:52 10/13/2024 [...] HCC. Pt reports recent US abd at [facility]. WIll obtain. Not available 10/13/2024 10:41:40 02/09/2025 [...] - Labs ordered through with the patient's infrastructure consultant, Dr. Bermudez. 3) Constipation: Miralax as needed. [...] for HCC. Patient to [facility]. Order given to patient today. Not available 02/09/2025 09:58:02 Plan of Treatment Reminders Order Date Submit Date Provider Last Modified By Organization Details Last Modified Time Details Appointments Establish ed Visit 15 min 2024 09:00A M Saeid Gilman MD Not available Not available Not available Lab CMP, serum or plasma 2024 025 CARO [facility], [address], [address], [place], [address], 02/14/2025 10:44:25 CBC w/ auto diff 2024 025 CARO [facility], [address], [address], [place], [address], 02/14/2025 10:44:26 afp (alpha-fe toprotein ) tumor marker, serum or plasma 2024 025 CARO [facility], [address], [address], [place], [address], 02/15/2025 14:25:49 PT/PTT, plasma 2024 025 CARO [facility], [address], [address], [place], [address], 02/14/2025 11:28:54 CMP, serum or plasma 2023 024 CARO [facility], [address], [address], [place], [address], 08/12/2024 10:04:33 afp (alpha-fe toprotein ) tumor marker, serum or plasma 2023 024 [email or web address] 4 [facility], [address], [address], [place], [address], 08/18/2024 09:03:53 PT/INR 2023 024 [email or web address] 4 [facility], [address], [address], [place], [address], 08/18/2024 09:03:53 CBC w/ auto diff 2023 024 CARO [facility], [address], [address], [place], [address], 08/12/2024 09:09:00 hepatitis A virus Ab, qualitati ve, immunoass ay, serum 2023 024 CARO [facility], [address], [address], [place], [address], 08/14/2024 19:21:40 hepatitis B surface Ab, qualitati ve, serum 2023 024 CARO [facility], [address], [address], [place], [address], 08/13/2024 12:51:57 CBC 2022 [email or web address] [place] [address] (Registration ), [address], [place], [address], 07/02/2023 08:11:07 CMP, serum or plasma 2022 [email or web address] [place] [address] (Registration ), [address], [place], [address], 07/02/2023 08:11:07 PT/INR 2022 [email or web address] [place] [address] (Registration ), [address], [place], [address], 07/02/2023 08:11:07 afp (alpha-fe toprotein ), serum [address] (Registration ), [address] [place], [address], 07/02/2023 08:11:07 HUE (antinucl ear antibodie s) screen, serum [address] (Registration ), [address] [place], [address], 07/02/2023 08:11:07 igg, quantitat leigh, serum [address] (Registration ), [address] [place], [address], 07/02/2023 08:11:08 actin smooth muscle Ab, serum [address] (Registration ), [address] [place], [address], 07/02/2023 08:11:08 mitochond rial Ab, serum [address] (Registration ), [address] [place], [address], 07/02/2023 08:11:08 hemochrom atosis mutation (hfe), blood/tis leo [address] (Registration ), [address] [place], [address], 07/02/2023 08:11:08 iron + TIBC + ferritin, serum [address] (Registration ), [address] [place], [address], 07/02/2023 08:11:08 alpha-1-a ntitrypsi n (aat), QN, serum 2022 [email or web address] [place] [address] (Registration ), [address], [place], [address], 07/02/2023 08:11:08 alpha-1-a ntitrypsi n (aat) phenotype , serum 2022 [email or web address] [place] [address] (Registration ), [address], [place], [address], 07/02/2023 08:11:09 hepatitis B surface Ab, quantitat leigh, serum 2022 [email or web address] [place] [address] (Registration ), [address], [place], [address], 07/02/2023 08:11:09 hepatitis A Ab, total, serum [email or web address] [place] [address] (Registration ), [address] [facility], [place], [address], 07/02/2023 08:11:09 hepatitis (A+B+C) panel, serum [address] (Registration ), [address] [facility], [place], [address], 07/02/2023 08:11:09 Referral None recorded. Procedures None recorded. Surgeries None recorded. Imaging US, liver 2024 025 [facility] (Scheduling), [address], [place], [address], 02/22/2025 11:08:42 US, liver 2022 023 [facility] (Scheduling), [address], [place], [address], 07/07/2023 10:31:32 Medication Orders Xifaxan 550 mg tablet 2023 025 [facility] #[id number], [address] [place], [address], 02/09/2025 09:26:24 Dexilant 60 mg capsule, delayed release 2023 024 [facility] #[id number], [address] [place], [address], 08/11/2024 11:25:44 simethico ne 125 mg capsule 2022 023 [id number], [address], [id number], 02/09/2025 09:26:02 pantopraz ole 40 mg tablet,de layed release 2022 023 [id number], [address], [id number], 02/09/2025 09:22:38 Patient TargetsNo targets recorded. Patient InstructionsNo instructions recorded. Reason for Referral None Reported. Results Created Date Observation Date Name Description Value Unit Range Abnormal Flag Note LastModifiedBy Organization Detail LastModifiedTime 07/15/20 24 07/15/2024 BHAVANI PREP TISSU E bhavani prep tissue NEGATI VE negati ve Not Available [facility] [address], [place], [address], 07/15/2024 17:33:57 07/07/2007/07/2023 US, liver No observ ation record ed. [facility] [address], [place], [address], 08/28/2023 14:46:27 02/23/20 25 02/21/2025 US, liver No observ ation record ed. [facility] [address], [place], [address], 02/28/2025 11:44:25 Result Notes None recorded. Problems Name Problem SNOMED Code Status Onset Date Resolution Date Notes Provider Name and Address Organization Details Recorded Time Cirrhosis of liver Active [address], [place], [place], [address] [place] [address] , [place] - [facility] [place] 3 09:35:44 Constipation 76127306 Active [address], [place] [address] , [place] [facility] & [place] 3 10:54:34 Thrombocytope cris disorder 736525051 Active [address], [place] [address] , [place] [facility] [place] 3 10:54:44 Superior mesenteric vein thrombosis 425589925 Active [address], [place] [address] , [place] [facility] & [place] 3 10:55:43 Gastroesophag eal reflux disease without esophagitis 002508960 Active [address], [place] [address] , [place] - [facility] & [place] 3 09:35:58 Abdominal bloating 072027063 Active [address], [place] [address] , [place] - [facility] & [place] 3 09:36:01 Problem Notes None recorded. Procedures Surgical History Date Name Laterality Status Provider Name and Address Organization Details Recorded Time total knee replacement completed Kraig Mdeeiros [place] - [facility] [place] 02/09/2025 09:27:31 total shoulder replacement completed Kraig [facility] - [facility] [place] [facility] [place] 02/09/2025 09:27:47 operation on stomach completed Kraig [facility] - [facility] & [place] 02/09/2025 09:27:59 Imaging Results Imaging Date Name Status LastModified by Organiz ation Details LastModified Time 07/07/2023 US, liver completed [facility] [address], [place], [address], 08/28/2023 14:46:27 02/21/2025 US, liver completed [facility] [address], [place], [address], 02/28/2025 11:44:25 Procedure Notes None recorded. Medical Equipment None [...] MOUTH EVERY DAY FOR 4 DAYS STARTING 302/09 completed Not Available Not Available Not Available [...] Updated DateTime 3 187.96 cm 29.8 kg/m2 642633. 51 g 97.5 [degF] 72 /min 96 % 96 % 69 /min 104 mm[Hg] 67 mm[Hg] Precious [facility] & [place] 3 09:10:10 Date Recorded Body weight Body mass index (BMI) Body height Heart rate Body temperature Oxygen saturation Oxygen saturation in Arterial blood by Pulse oximetry Heart rate Systolic blood pressure Diastolic blood pressure Provider Name and Address Organization Details Last Updated DateTime 4 410541. 2 g 29.7 kg/m2 187.96 cm 109 /min 98.1 [degF] 95 % 95 % 100 /min 164 mm[Hg] 76 mm[Hg] Precious Faye [facility] & [place] 4 10:29:44 Date Recorded Body height Body mass index (BMI) Body weight Body temperature Heart rate Systolic blood pressure Diastolic blood pressure Provider Name and Address Organization Details Last Updated DateTime 4 187.96 cm 29.7 kg/m2 315315. 56 g 97.3 [degF] 75 /min 146 mm[Hg] 75 mm[Hg] Lisha Shell [facility] & [place] 4 09:10:59 Date Recorded Body height Body mass index (BMI) Body weight Heart rate Systolic blood pressure Diastolic blood pressure Provider Name and Address Organization Details Last Updated DateTime 5 187.96 cm 28.8 kg/m2 623602. 49 g 73 /min 133 mm[Hg] 73 mm[Hg] Kraig ward [facility] & [place] 5 09:28:08 Social History Question Answer Notes LastModified by Organizat ion Details LastModified Time Tobacco Smoking Status Never Smoker Precious Faye [facility] & [place] 06/25/2023 09:09:55 What Is Your Level Of Alcohol Consumption? None [email or web address] Information not available 06/25/2023 What Is Your Level Of Caffeine Consumption? Occasional [email or web address] Information not available 06/25/2023 Do You Use Any Illicit Or Recreational Drugs? No [email or web address] Information not available 06/25/2023 Do You Or Have You Ever Used Any Other Forms Of Tobacco Or Nicotine? No [email or web address] Information not available 06/25/2023 Sex: Unknown Functional [...] SNOMED-CT Code Diagnosis ICD10 Code Diagnosis Note [id number] Saeid Gilman MD [facility] [place] [address] 06/01/2023 08:33:54 06/01/2023 13:05:24 [id number] Pablito Mccarthy PA-C [facility] [place] [address] 06/25/2023 08:46:19 06/25/2023 09:47:01 Cirrhosis of liver 87683404 K74.60 Constipation 31938964 K5 9.00 Thrombocyt openic disorder 526090971 D69.6 Superior m esenteric vein thrombosis 667778226 K55.059 History of gastrointestinal bleed 653516200 Z87.19 265380 Pablito Mccarthy PA-C [facility] [address] [address] 07/23/2023 09:01:42 07/23/2023 10:12:53 Cirrhosis of liver 98633885 K74.60 Constipation 77822855 K5 9.00 Thrombocyt openic disorder 253184527 D69.6 Superior m esenteric vein thrombosis 103716884 K55.059 History of gastrointestinal bleed 077013279 Z87.19 Gastroesop hageal reflux disease without esophagitis 470681994 K21.9 Abdominal bloating 76379 9008 R14.0 [id number] Saeid Gilman MD [facility] [place] [address] 08/11/2024 10:19:21 08/11/2024 11:42:38 Cirrhosis of liver 07847160 K74.60 Constipation 01253898 K5 9.00 Thrombocyt openic disorder 498946641 D69.6 Superior m esenteric vein thrombosis 403987921 K55.059 History of gastrointestinal bleed 950281408 Z87.19 Gastroesop hageal reflux disease without esophagitis 952276295 K21.9 Abdominal bloating 64269 9008 R14.0 Hepatic encephalopathy 49859081 K76.82 Ascites 836225697 R18.8 6002663 Saeid Gilman MD [facility] [place] [address] 10/13/2024 08:57:09 10/13/2024 09:43:50 Cirrhosis of liver 47681472 K74.60 Constipation 06770413 K5 9.00 Thrombocyt openic disorder 068895509 D69.6 Superior m esenteric vein thrombosis 653907534 K55.059 History of gastrointestinal bleed 765906920 Z87.19 Gastroesop hageal reflux disease without esophagitis 830931123 K21.9 Abdominal bloating 15632 9008 R14.0 Hepatic encephalopathy 53511207 K76.82 Ascites 509384967 R18.8 [id number] Saeid Gilman MD [facility] [place] [address] 02/09/2025 09:08:06 02/09/2025 09:52:00 Cirrhosis of liver 91684385 K74.60 Constipation 26226404 K5 9.00 Thrombocyt openic disorder 371080917 D69.6 Superior m esenteric vein thrombosis 963064125 K55.059 History of gastrointestinal bleed 049716680 Z87.19 Gastroesop hageal reflux disease without esophagitis 942631052 K21.9 Abdominal bloating 91628 9008 R14.0 Hepatic encephalopathy 79775276 K76.82 Ascites 263345060 R18.8 Alcoholic cirrhosis 4200 95894 K70.31 Health Concerns Section Related Observation LastModified by Organization Detai ls LastModified Time None Recorded Concern Status LastModified by Organization Details LastModified Time None Recorded Advance Directives Directive None Recorded Payers Encounter Date Sequence Insurance Name Policy Number Policy Hidalgo Covered Member ID Hidalgo Member ID Guarantor Name 06/25/2023 2 [facility] [facility] [place] Halie Banda [id number] Solo Ambrose 07/23/2023 2 [facility] [employer] [place] Halie Banda [id number] Solo SimonHalie 08/11/2024 2 [facility] [place] [facility] Halie Banda [id number] Solo Ambrose 08/11/2024 1 [place] Solo Ambrose [id number] Solo SimonHalie 10/13/2024 1 [place] Solo Ambrose [id number] Solo SimonHalie 10/13/2024 2 [place] [id number] Solo Ambrose [id number] Solo Ambrose 02/09/2025 1 [place] Solo Ambrose [id number] Solo Ambrose 02/09/2025 2 [place] [id number] Solo Ambrose [id number] Solo Ambrose Notes Date Note Type Note Provider Name and Address Organization Details Recorded Time 06/25/2023 text/html Mr. Ambrose i s a 63-year-old male who was referred [...] as 16. He was seeing hematology [place] and was placed on steroids which [...] improved with bowel movements. Pablito Mccarthy PA-C [address] [facility], [place], [address], [facility] [place] [facility] [place] 06/25/2023 10:56:47 07/23/2023 text/html PREVIOUS ( 3): [...] as 16. He was seeing [place] and was placed on steroids which [...] further disposition of care. Pablito Mccarthy PA-C [address], [place], [address], [facility] [place] [facility] [place] 07/23/2023 18:04:40 08/11/2024 text/html PREVIOUS ( 3): [...] as 16. He was seeing [place] and was placed on steroids which [...] Sleep cycle is altered. Saeid Gilman MD [address] [facility], [place], [address], [place] [facility] [place] [facility] [place] 08/11/2024 12:24:41 10/13/2024 text/html PREVIOUS ( 3): [...] as 16. He was [place] and was placed on steroids which [...] He otherwise feels well. Saeid Gilman MD [address], [place], [address], [place] - [facility] [place] [facility] [place] 10/13/2024 10:41:59 02/09/2025 text/html PREVIOUS ( 3): [...] as 16. He was seeing [place] and was placed on steroids which [...] increase in abdominal girth. Saeid Gilman MD [address], [place], [address], [place] [facility] [place] [facility] [place] [facility] [place] 02/09/2025 10:06:18
--- OUTSIDE RECORDS SUMMARY | 2025-03-01 07:54 | XMS_ITS | Clinical Summary ---
Author Organization [facility] Address [address] [place] [address] Phone Care Team Providers Care Environmental Specialist Name Role Phone Unavailable Unavailable Unavailable Reason for Visit and Chief Complaint The Chief Complaint is: Left knee pain Problems Includes: Problems addressed during this encounter and other active Problems All Visits Onset Date Resolved Date Provider Condition S tatus Joint Pain in the Right Knee 03/01/2024 Nhi FLYNN Active Last Documented On 4 11:30AM ; [facility], [facility] Joint Pain in the Left Knee 03/01/2024 Nhi FLYNN Active Last Documented On 4 11:31AM ; [facility], [facility] Plan of Treatment He has end-stage [...] - Last Documented On 01/22/2024 9:15AM ; [facility], [facility] Instructions to patient Lose weight Last Documented On 4 8:41AM ; [facility], [facility] Assessments Includes: Assessments from this encounter Findings - Overweight - Last Documented On 01/22/2024 9:15AM ; [facility], [facility] Instructions Includes: Instructions from this encounter Instructions to patient Lose weight Last Documented On 4 8:41AM ; [facility], [facility] Medical Equipment - Implanted Devices Includes: Current Devices No Medical Equipment Recorded Medications Includes: Medications discussed during this encounter and other current Medications Current Medications (continue as prescribed) Xarelto 20 MG Oral Tablet 01/07/2024 Provider: Diagnosis: Last Documented On 4 8:40AM By Timetrasif Lee ; [facility], [facility] Potassium Chloride ER 10 MEQ Oral Tablet Extended Release 12/22/2023 Provider: MLIAGROS BLANK MD Diagnosis: Last Documented On 4 8:40AM By Timetria Maxberry ; [facility], [facility] Losartan Potassium 100 MG Oral Tablet 12/18/2023 Pro vider: Diagnosis: Last Documented On 4 8:40AM By Timetria Maxberry ; [facility], [facility] Furosemide 40 MG Oral Tablet 11/20/2023 Provider: KAELYN LOWE MD Diagnosis: Last Documented On 4 8:40AM By Timetria Maxsondra ; [facility], [facility] Bisoprolol Fumarate 10 MG Oral Tablet 11/04/2023 Pro vider: Diagnosis: Last Documented On 4 8:40AM By Timetria Rosa ; [facility], [facility] Medications Administered Includes: Administered Medications from this encounter No Administered Medications Recorded Vital Signs Includes: Vital Signs from this encounter Vital Name 01/22/2024 08:40A Height (in) 73 Weight (lb) 230 Body Mass Index 30.3 Body Surface Area 2.3 Note: tm Last Documented: On 01/22/2024 8:40AM ; [facility], [facility] Results Includes: Results discussed during this [...] 01/22/2024 Last Documented On 4 9:15AM ; [facility] Smoking Status Unknown Procedures and Surgical History Includes: Procedures from this encounter Procedures Code Diagnosis Performing Provider Service L ocation Service Date use of tobacco assessment performed 1000F Last Documented On 4 8:41AM ; [facility] review of medications documented 1160F Last Documented On 4 8:41AM ; [facility] Medical History Includes: Medical History addressed during [...] Time Diagnosis Physician Specified Duarte Lozada MD [facility] 01/22/20 24 8:03AM 9:13AM Overweight Insurance Includes: Active Insurance Policies Plan Name Member ID Group # Subscriber Relationship Effect leigh Dates - [facility] [id number] KAELYN KAN Self Clinical Notes Includes: Clinical Notes from this encounter * Progress note Date Encounter Last Documented by 01/22/2024 Physician Specified Last leonie ford on 01/22/2024; 9:15 AM, Duarte Lozada MD; [facility] Chief Complaint The Chief Complaint is: Left [...] Tablet 5 days, 0 refills - Nystatin 250956 UNIT/ML Mouth/Throat Suspension 7 days, 0 refills [...]
--- OUTSIDE RECORDS SUMMARY | 2025-03-01 07:54 | XMS_ITS | Continuity of Care Document ---
Author Organization [place] - [place] & [place], [facility] Address [address] 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 Bermudez. 3) Constipation: Miralax as needed. [...] Lab CMP, serum or plasma 2024 025 [facility], [address], [address], [place], [address], 02/14/2025 10:44:25 CBC w/ auto diff 2024 025 [facility], [address], [address], [place], [address], 02/14/2025 10:44:26 afp (alpha-fe toprotein ) tumor marker, serum or plasma 2024 025 [facility], [address], [address], [place], [address], 02/15/2025 14:25:49 PT/PTT, plasma 2024 025 [facility], [address], [address], [place], [address], 02/14/2025 11:28:54 Referral None recorded. Procedures None recorded. Surgeries None recorded. Imaging US, liver 2024 025 [facility] (Scheduling), [address], [place], [address], 02/22/2025 11:08:42 Medication Orders None recorded. Patient TargetsNo targets recorded. Patient InstructionsNo instructions recorded. Reason for Referral None Reported. Results Created Date Observation Date Name Description Value Unit Range Abnormal Flag Note LastModifiedBy Organization Detail LastModifiedTime 02/23/2002/21/2025 US, liver No observ ation record ed. [facility] [address], [place], [address], 02/28/2025 11:44:25 Result Notes None recorded. Problems Name Problem SNOMED Code Status Onset Date Resolution Date Notes Provider Name and Address Organization Details Recorded Time Cirrhosis of liver Active 2022 Pablito Mccarthy PA-C [address], [place], [address] , [place] - [facility] & [place] 3 09:35:44 Constipation 76170226 Active 2022 Pablito Mccarthy PA-C [address], [place], [address] , [place] - [facility] & [place] 3 10:54:34 Thrombocytope cris disorder 902176544 Active 2022 Pablito Mccarthy PA-C [address], [place], [address] , [place] - [facility] & [place] 3 10:54:44 Superior mesenteric vein thrombosis 928641045 Active 2022 Pablito Mccarthy PA-C [address], [place], [address] , [place] - [facility] & [place] 3 10:55:43 Gastroesophag eal reflux disease without esophagitis 876790534 Active 2022 Pablito Mccarthy PA-C [address] [place], [facility] [address] , [place] - [facility] & [place] 3 09:35:58 Abdominal bloating 300447687 Active 2022 Pablito Mccarthy PA-C [address], [facility] [address] , [place] - [facility] & [place] 09:36:01 Problem Notes None recorded. Procedures Surgical History Date Name Laterality Status Provider Name and Address Organization Details Recorded Time total knee replacement completed [facility] & [place] 02/09/2025 09:27:31 total shoulder replacement completed [facility] & [place] 02/09/2025 09:27:47 operation on stomach completed [facility] & [place] 02/09/2025 09:27:59 Imaging Results None recorded. Procedure [...] Updated DateTime 5 187.96 cm 28.8 kg/m2 304842. 49 g 73 /min 133 mm[Hg] 73 mm[Hg] Kraig EDMONDSON [facility] & [place] 09:28:08 Social History Question Answer Notes LastModified by Organizat ion Details LastModified Time Tobacco Smoking Status Never Smoker SLY Figueredo [facility] & [place] 06/25/2023 09:09:55 What Is Your Level Of Alcohol Consumption? None [email or web address] Information not available 06/25/2023 What Is Your Level Of Caffeine Consumption? Occasional [email or web address] Information not available 06/25/2023 Do You Use Any Illicit Or Recreational Drugs? No [email or web address] Information not available 06/25/2023 Do You Or Have You Ever Used Any Other Forms Of Tobacco Or Nicotine? No [email or web address] Information not available 06/25/2023 Sex: Unknown Functional [...] SNOMED-CT Code Diagnosis ICD10 Code Diagnosis Note [id number] Saeid Gilman MD [facility] [address] 2 02/09/2025 09:08:06 02/09/2025 09:52:00 Cirrhosis of liver 80412550 K74.60 Constipation 55673055 K5 9.00 Thrombocyt openic disorder 485280730 D69.6 Superior m esenteric vein thrombosis 922991427 K55.059 History of gastrointestinal bleed 482588883 Z87.19 Gastroesop hageal reflux disease without esophagitis 051209766 K21.9 Abdominal bloating 42142 9008 R14.0 Hepatic encephalopathy 67641815 K76.82 Ascites 249568204 R18.8 Alcoholic cirrhosis 4200 47843 K70.31 Health Concerns Section Related Observation LastModified by Organization Detai ls LastModified Time None Recorded Concern Status LastModified by Organization Details LastModified Time None Recorded Payers Encounter Date Sequence Insurance Name Policy Number Policy Hidalgo Covered Member ID Hidalgo Member ID Guarantor Name 02/09/2025 1 [place] Solo Ambrose [id number] Solo Ambrose 02/09/2025 2 [place] [id number] Solo Ambrose [id number] Solo Ambrose Notes Date Note Type [...] as 16. He was seeing hematology in [place], [place] and was placed on steroids which [...] increase in abdominal girth. Saeid Gilman MD [address], [place], [address], [facility] - [facility] - [place] & [place] 02/09/2025 10:06:18
--- OUTSIDE RECORDS SUMMARY | 2025-03-01 07:54 | XMS_ITS ---
Care Plan - [facility] Created on: March 01, 2025 KAELYN KAN : 1960 Sex: Male Author Organization [facility] Address [address] [place] [address] Phone Care Team Providers Care Label Printing Machinist Name Role Phone Unavailable Unavailable Unavailable
[2025-03-01] MEDS: IRON SUCROSE COMPLEX 200 MG in 0.9 % SODIUM CHLORIDE 100 ML 220 MG IV (08:21)
[2025-03-01] MEDS: SODIUM CHLORIDE 0.9% 50ML BAG 50 ML IV (08:21)
[2025-03-01 08:25] VITALS: BP 139/90; PULSE 71; RESP 18; O2SAT 100
[2025-03-01 09:05] VITALS: BP 154/85; PULSE 76; RESP 18; O2SAT 100
== END 2025-03-01 09:05 | disposition home or self-care (01) ==
LOC: INF 07:51
PROVIDERS: PCP Family Medicine; Visit Provider Internal Medicine Medical Oncology
DX: D50.9 Iron deficiency anemia, unspecified (principal)
CPT/HCPCS: 96365; J1756

== ENCOUNTER 2025-05-01 08:38 | Outpatient (CLI) | payer MEDICARE, BC, SELFPAY ==
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
--- OUTSIDE RECORDS SUMMARY | 2024-10-04 07:15 | XMS_ITS ---
Author Organization [facility] Address 1210 [facility] [address] [place] [phone] Care Team Providers Care Reclamation Furnace Operator Name Role Phone Pasquale Girard Primary Care Provider Lana Perera Unavailable [phone] Allergies No Known Allergies REASON FOR VISIT 1 week Medications Medication SIG (Take, Route, Frequency, Duration) Notes Start Date End Date Status Xarelto 15 MG 1 tablet with food O rally Once a day; Duration: 30 day(s) Active Silvadene 1 % 1 application Telephone Order Clerk ally Once a day; Duration: 30 days 10/04/2024 Active Spironolactone 50 MG 1 tablet Orally Two times a day; Duration: 30 days Active Bisoprolol Fumarate 10 MG 1 tablet Orall y Once a day; Duration: 30 day(s) Active Mupirocin 2 % 1 application Telephone Order Clerk ally qd; Duration: 30 days 09/27/2024 Active levoFLOXacin 500 MG 1 tablet Orally Once a day Active Vital Signs Blood pressure systolic 130 mm Hg 10/04/20 24 Blood pressure diastolic 80 mm Hg 024 Heart Rate 62 /min 10/04/2024 Height 74 in 10/04/2024 Weight 229.2 lbs 10/04/2024 BMI 29.42 kg/m2 10/04/2024 Encounters Encounter Location Date Provider Diagnosis [facility] [address] [place] [phone] 10/04/2024 Lana Perera Cellulitis of right leg [...] Date Notes Silvadene 1 % 1 application Telephone Order Clerk ally Once a day; Duration: 30 days [...] * Solo AMBROSEDOB:[birth year] (65 yo M)Acc No.[id number]:10/04/2024 Progress Notes Patient: Solo HERNANDEZ Provider: CHARLES Villegas :1960 A ge:64 Y S ex:Male Date:10/04/2024 Address:[address] [place] [address] , [facility] , [id number] Pcp:Pasquale Girard Subjective: * Chief Complaints: * [...] C oronary Artery Disease, LT Heart Cath, [facility] 06/2019, Hypertension, A Fib, Hyperlipidemia, Gout, ETOH abuse, Abnormal LFT's, Bilateral Inguinal Hernia, Diastolic Dysfunction, Echo, 09/2019, Osteoarthritis, anemia/GI bleed April 2023, Thrombocytopenia, s/p Heme/Onc evaluation at [facility], cirrhosis, s/p GI evaluation with [...] Temp:97.2, BP:130/80, HR:62, O2 Sat:100% on RA, Nurse:[facility], Ht: 74, BMI:29.42. * Examination: G eneral [...] * Images: Billing Information: * Visit Code: 77347 Office Visit, Est Pt., Level 3. * Procedure Codes: 84720 PULSE OX. G2211 Complex e/m visit add on. * Electronic signature of Viridiana Perera APRN on 05/01/2025 at 08:43 AM EDT Sign off status: Pending * Provider: CHARLES Villegas Date: 1 12/05/2023 Generated for Azeb gill/Hudson/Corrie on: 0 05/01/2025 08:43 AM EDT History and Physical Notes * [...]
--- OUTSIDE RECORDS SUMMARY | 2024-11-17 06:00 | XMS_ITS ---
Author Organization Jannie Address 1210 [facility] [address] [place] [phone] Care Team Providers Care Printing Assistant Name Role Phone Pasquale Girard Primary Care Provider Allergies No Known Allergies REASON FOR VISIT pre op physical Medications Medication SIG (Take, Route, Frequency, Duration) Notes Start Date End Date Status Bisoprolol Fumarate 10 MG 1 tablet Orall y Once a day; Duration: 30 day(s) Active Xarelto 15 MG 1 tablet with food O rally Once a day; Duration: 30 day(s) Active Vital Signs Blood pressure systolic 118 mm Hg 11/17/19 25 Blood pressure diastolic 74 mm Hg 025 Heart Rate 54 /min 11/17/2024 Height 74 in 11/17/2024 Weight 227.8 lbs 11/17/2024 BMI 29.24 kg/m2 11/17/2024 Encounters Encounter Location Date Provider Diagnosis [facility] 1210 [facility] [address] [place] [phone] 11/17/2024 Pasquale Girard Pre-op exam Z01.818 ; Arthritis of left knee M17.12 ; Anemia, unspecified type D64.9 ; Thyromegaly E01.0 ; Coronary artery disease involving [place] coronary artery of [place] heart without angina pectoris I25.10 ; Type 2 diabetes mellitus without complication, unspecified whether alf insulin use E11.9 ; Mixed hyperlipidemia E78.2 [...] - E01.0) 11/17/2024 Coronary artery disease involving [place] coronary artery of [place] heart without angina pectoris (ICD-10 - I25.10) 11/17/2024 Type 2 diabetes mellitus without complication, unspecified whether continuous churn buttermaker insulin use (ICD-10 - E11.9) 11/17/2024 Mixed [...] * Solo AMBROSEDOB:[birth year] (65 yo M)Acc No.[id number]:11/17/2024 Physical Patient: Solo HERNANDEZ Provider: Sofia Girard M.D. :1960 A ge:64 Y S ex:Male Date:11/17/2024 Address:[address] [place] [address] , [facility] y , [id number] Subjective: * Chief Complaints: * 1 . [...] C oronary Artery Disease, LT Heart Cath, [facility] 06/2019, Hypertension, A Fib, Hyperlipidemia, Gout, ETOH abuse, Abnormal LFT's, Bilateral Inguinal Hernia, Diastolic Dysfunction, Echo, 09/2019, Osteoarthritis, anemia/GI bleed April 2023, Thrombocytopenia, s/p Heme/Onc evaluation at [facility], cirrhosis, s/p GI evaluation with Dr. [...] E01.0? 5. C oronary artery disease involving [place] coronary artery of [place] heart without angina pectoris - I25.10 6 . T ype 2 diabetes mellitus without complication, unspecified whether continuous churn buttermaker insulin use - E11.9 7 . M [...] * Images: Billing Information: * Visit Code: 28091 Office Visit, Est Pt., Level 4. * Procedure Codes: G2211 Complex e/m visit add on. * Electronic signature of Abbey Girard MD on 05/01/2025 at 08:44 AM EDT Sign off status: Pending * Provider: Sofia Girard M.D. Date: 0 11/17/2024 Generated for Printi ng/Faxing/eTransmitting on: 0 05/01/2025 08:44 AM EDT History [...]
--- OUTSIDE RECORDS SUMMARY | 2025-05-01 08:44 | XMS_ITS | Clinical Summary ---
Author Organization DANIEL LILA OD Address [address] [facility] [place] [address] Phone Care Team Providers Care Laminating Machine Operator Name Role Phone Unavailable Primary Care Provider Unavailabl e Social History Tobacco Use Types Packs/Day Years Used Date Smoking Tobacco: Never Assessed Sex and Gender Information Value Date Recorded Sex Assigned at Not on file Legal Sex Male 3:58 PM EDT Gender Identity Not on file Sexual Orientation Not on file Last Filed Vital Signs Vital Sign Reading Time Taken Comments Blood Pressure 133/80 06/10/2017 12:00 PM EDT Pulse - - Temperature - - Respiratory Rate - - Oxygen Saturation - - Inhaled Oxygen Concentration - - Weight 106.6 kg (235 lb) 06/10/2017 12:00 PM EDT Height 185.4 cm (6' 1 ) 06/10/2017 12:00 PM EDT Body Mass Index 31 06/10/2017 12:00 PM EDT Plan of Treatment Health Maintenance Due Date Last Done Comments Annual Wellness Exam 1962 Hepatitis C Screening 1977 DTaP/TDaP/Td (1 - Tdap) 1978 Cologuard 2004 Colon Cancer Screening 2004 Colonoscopy 2004 FIT 2004 Sigmoidoscopy 2004 Virtual Colonography 2004 Pneumococcal Vaccine 50+ (1 of 1 - PCV) 2009 Zoster (1 of 2) 2009 COVID-19 Vaccine (2023-2 5 season) 2024 Influenza Vaccine (Season Ended) 2025 Hepatitis B Vaccine Aged Out No longe r eligible based on patient's age to complete this topic Meningococcal B Vaccine Aged Out No l onger eligible based on patient's age to complete this topic
--- OUTSIDE RECORDS SUMMARY | 2025-05-01 08:44 | XMS_ITS | Data Portability ---
Author Organization [facility] - [facility] Address [address] [facility] [address] [place] [address] Assessment Encounter Date Assessment Date Assessment LastModified [...] Imaging XR, arthrogra m, shoulder 2017 018 [email or web address] Not available 8 09:17:56 Medication Orders Voltaren 1 % topical gel 2017 018 INTER[id number], [address] [place], [place], [id number], 8 10:08:42 Patient TargetsNo targets recorded. Patient Instructions Encounter Date Encounter Id Patient Instructions Last Modified By Organization Details Last Modified Time 12/24/2017 [id number] shoulder arthrit is: exercises [email or web address] Not available [...] situation. [email or web address] Not available 12/25/2017 07:56:08 12/29/2017 [id number] shoulder arthrit is: exercises [email or web address] Not available 12/29/2017 10:07:12 Reason for Referral None Reported. Results Created Date Observation Date Name Description Value Unit Range Abnormal Flag Note LastModifiedBy Organization Detail LastModifiedTime 12/24/19 18 12/24/2017 XR, silvianoul aishwarya, 2 or more view Teena song [facility] Jessica ms [address] [place] [address] Paticelsa t Name: KAELYN garcia : 959 Paticelsa t 81 Orderi ng Provid er: Carol THOMAS EXAM DATE: 2017 EXAM: XR LT [...] Sahu MD on 018 2:57 PM [email or web address] [facility] [place] [address], [place], [address], 12/24/2017 16:31:00 02/27/20 18 12/29/2017 rf lt shoul aishwarya stero id injec tion [address] [address] Paticelsa t Name: KAELYN KRAUS Paticelsa t : 959 Patien t 81 Orderi [...] Isovue 300 was wasted and discar ded. [facility] 0270-1 315-30 [facility] [address]- 165-05 [facility] [address]- 1610-5 0 IMPRES FRANCISCA: 1. The patien t is status post left should er arthro gram with dexame thason e and bupiva ed inject ion withou t compli cation . Interp reted By: Yo castillo MD Electr onical ly Signed By: Yo castillo MD on 018 12:[email or web address] [facility] [address] [place], [address], 12/29/2017 18:14:15 Result Notes Documentation Provider Name and Address Organization Details Recorded Time Xr, Shoulder, 2 Or More View : [facility] [place] [address] [place] [address] Patient Name: KAELYN KAN Patient : 1960 Patient Ordering Provider: Carol THMOAS EXAM DATE: 12/24/2017 EXAM: XR LT SHOULDER COMPLETE RADIOGRAPHIC VIEWS: 2 view left shoulder COMPARISON: None. HISTORY: Shoulder pain para findings: Previous left shoulder hemiarthroplasty. The hardware shows no complication. There is no indication of loosening present and there is no fracture noted. There is mild degenerative change of the acromioclavicular joint. IMPRESSION: Uncomplicated appearing left shoulder arthroplasty procedure Interpreted By: Kaelyn Sahu MD Carol THOMAS MD [address] [place] [address], [address], [facility] 12/24/2017 16:31:00 Procedures Surgical History Date Name Laterality Status Provider Name and Address Organization Details Recorded Time Orthopedic Surgery completed [facility] 12/24/2017 14:09:47 Imaging Results None recorded. Procedure Notes None [...] Updated DateTime 12/24/2017 187.96 cm 29.5 kg/m2 575021.2 5 g 142 mm[Hg] 82 mm[Hg] [facility] 8 14:07:23 Date Recorded Body height Body mass index (BMI) Body weight Systolic blood pressure Diastolic blood pressure Provider Name and Address Organization Details Last Updated DateTime 12/29/2017 187.96 cm 29.5 kg/m2 483634.2 5 g 165 mm[Hg] 104 mm[Hg] Mariel Brown [facility] 8 09:48:14 Social History Question Answer Notes LastModified by Organizat ion Details LastModified Time Tobacco Smoking Status Never Smoker Hiwot mirza [facility] 12/24/2017 14:09:39 What Was The Date [...] available 12/24 14:09:16 Medical History Condition Response Allergies/Hayfever N Diabetes N Arthritis N Heart Conditions N Tuberculosis N Migraines N Asthma N COPD N Pneumonia N Blood Thinners N Sleep Apnea N Anesthesia Complications N Liver Disease N Hypertension Y Osteoporosis N Kidney Disease N Past Encounters Encounter ID Performer Location Encounter Start Date Encounter Closed Date Diagnosis/Indication Diagnosis SNOMED-CT Code Diagnosis ICD10 Code Diagnosis Note [id number] W DARYA THOMAS [facility] [address] [place] [address] 12/24/2017 13:55:33 12/24/2017 15:58:56 Localized, primary osteoarthritis of the shoulder region 426628037 M19.394 [id number] CHRISTIANO VILLEGAS MD [facility] [address] [place] [address] 12/29/2017 09:32:32 12/29/2017 11:08:54 Localized, primary osteoarthritis of the shoulder region 600832773 M19.019 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 HHR wear problems is post activity pain - he has great function supportive care; inject, PT, topicals, heat, Health Concerns Section Related Observation LastModified by Organization Detai ls LastModified Time None Recorded Concern Status LastModified by Organization Details LastModified Time None Recorded Advance Directives Directive None Recorded Payers Insurance Date Sequence Insurance Name Policy Number Policy Hidalgo Covered Member ID Hidalgo Member ID Guarantor Name 09/26/2020 1 [place] [id number] Kaelyn Kan [id number] Kaelyn Kan Notes Date Note Type Note Provider Name [...] sent for further evaluation. Carol THOMAS MD [facility] [place], [address], [facility] 12/28/2017 07:56:38 12/29/2017 text/html LEFT SHoulder pr [...] Uses Indomethacin for pain CHRISTIANO VILLEGAS MD [facility] [place], [address], [facility] 12/29/2017 10:09:31
--- OUTSIDE RECORDS SUMMARY | 2025-05-01 08:44 | XMS_ITS | Patient Health Record ---
[facility] [address] [facility] [address] [facility] [address] [place] [id number] Care Team Providers Care Windows Server Administrator Name Role Phone Pasquale Girard Primary Care Provider PereraDaljit worthingtonine Unavailable [phone] Allergies No Known Allergies Results Component Value Reference Range Notes CT scan : Abdomen and pelvis without contrast Reviewed date:06/15/2024 11:15:50 AM Interpretation:06/15 OV Performing Lab: Notes/Report: 06/15 OV H-CMP Reviewed date:05/24/2024 11:11:43 AM Interpretation:Na 134, gluc 101, prot 5.5, alb 2.5, a/g 0.8 Performing Lab: Notes/Report: NA 134 136-145 mmol/L K 3.9 3.5-5.1 mmoL/L CL 106 98-107 mmol/L CO2 23 22.0-30.0 mmol/L GAP 8.9 5-15 mEq/L BUN 11 9-20 mg/dl CREATT 0.70 0.66-1.25 mg/dl CRCLE 117 50-200 mL/min GFRAA 137 >60 ML/MIN EGFR 113 >60 ml/min GLU 101 74-100 mg/dl CA 8.7 8.4-10.2 mg/dl BILIT 1.1 0.2-1.3 mg/dl AST 33 17-59 U/L ALT 17 12-78 U/L TP 5.5 6.3-8.2 g/dl ALB 2.5 3.5-5.0 g/dl GLOB 3.0 1.3-3.2 g/dL AGRATIO 0.8 1.1-1.8 ALP 78 38-126 U/L H-CBC Reviewed date:05/24/2024 11:11:43 AM Interpretation:wbc 4.4, rbc 2.68, hgb 9.2, hct 25.1, mch 34.4, mchch 36.8 Performing Lab: Notes/Report: WBC 4.4 4.8-10.8 K/mm3 RBC 2.68 4.60-6.20 M/mm3 HGB 9.2 14.1-18.0 g/dL HCT 25.1 42.0-52.0 % MCV 93.6 80-94 fl MCH 34.4 27.0-31.2 pg MCHC 36.8 31.8-35.4 g/dL RDW 14.7 11.5-17.5 % PLT 146 142-424 K/mm3 MPV 9.4 7.4-10.4 fl NE% 59.9 37.0-80.0 % LY% 21.5 10-50 % MO% 13.2 1.7-9.3 % EO% 4.9 0.1-12.0 % BA% 0.5 0.1-2.0 % NE# 2.6 1.8-7.8 K/mm3 LY# 1.0 0.7-4.5 K/mm3 MO# 0.6 0.1-1.0 K/mm3 EO# 0.2 0.0-0.4 K/mm3 BA# 0.0 0-0.2 K/mm3 P-Culture, Wound Aerobic w/G jojo Stain Reviewed date:10/01/2024 12:10:32 PM Interpretation: Performing Lab: Notes/Report: CLIA: [id number] Jong Schneider MD, [employer] [address] [place] [address] , [address] , [place] [address] Test performed by [employer], [employer] Specimen Source Leg - Lower Right Leg Gram Stain See Below Moderate Polymorphonuclear leukocytes Moderate Gram Negative Rods Culture, Wound Aerobic w/Gram Stain See Below Preliminary Report : Pending, reincubate Klebsiella variicola Moderate Growth Klebsiella variicola Sensitivity Panel See Below Organism K.variicola Antibiotic INTERP Amikacin S Ampicillin R Aztreonam S Cefepime S Cefoxitin S Ceftazidime S Ceftriaxone S Cefuroxime S Ciprofloxacin S Ertapenem S Gentamicin S Imipenem S Levofloxacin S Meropenem S Piperacillin/Tazo S Tetracycline S Tobramycin S Trimeth/Sulfa S S=SUSCEPTIBLE I=INTERMEDIATE R=RESISTANT FOBT - Inhouse Reviewed date:06/22/2024 11:54:00 AM Interpretation: Performing Lab: Notes/Report: RPRT Reviewed date:07/01/2024 10:55:32 AM Interpretation: Performing Lab: Notes/Report: RPRT Non Reactive NonRea<1:1 titer Please Note: This test does not meet current guidelines for screening and diagnosis of syphilis. This test is intended for following treatment response in patients being treated for syphilis infection. To screen for syphilis infection, a reflex cascade that includes both RPR and a treponema-specific assay should be utilized, such as Treponema pallidum (Syphilis) Screening Clare (152382) or Rapid Plasma Reagin (RPR) Test With Reflex to Quantitative RPR and Confirmatory Treponema pallidum Antibodies (358731). Performed at: [address] [id number] Pattern Lease Inspector: Nuno Otto PhD, Phone: [phone] -[facility] Reviewed date:06/15/2024 11:15:50 AM Interpretation:06/15 OV Performing Lab: Notes/Report: NA 131 136-145 mmol/L K 4.4 3.5-5.1 mmoL/L CL 107 98-107 mmol/L CO2 20 22.0-30.0 mmol/L GAP 8.4 5-15 mEq/L BUN 9 9-20 mg/dl CREATT 0.90 0.66-1.25 mg/dl CRCLE 118 50-200 mL/min GFRAA 102 >60 ML/MIN EGFR 85 >60 ml/min GLU 91 74-100 mg/dl CA 9.2 8.4-10.2 mg/dl BILIT 1.2 0.2-1.3 mg/dl AST 27 17-59 U/L ALT 15 12-78 U/L TP 6.0 6.3-8.2 g/dl ALB 3.1 3.5-5.0 g/dl GLOB 2.9 1.3-3.2 g/dL AGRATIO 1.1 1.1-1.8 ALP 78 38-126 U/L H-CBC Reviewed date:06/15/2024 11:15:50 AM Interpretation:06/15/2024 OV Performing Lab: Notes/Report: WBC 5.0 4.8-10.8 K/mm3 RBC 3.04 4.60-6.20 M/mm3 HGB 8.4 14.1-18.0 g/dL HCT 26.7 42.0-52.0 % MCV 88.0 80-94 fl MCH 27.5 27.0-31.2 pg MCHC 31.3 31.8-35.4 g/dL RDW 14.4 11.5-17.5 % PLT 117 142-424 K/mm3 MPV 10.3 7.4-10.4 fl NE% 58.9 37.0-80.0 % LY% 22.7 10-50 % MO% 12.8 1.7-9.3 % EO% 5.1 0.1-12.0 % BA% 0.4 0.1-2.0 % NE# 2.9 1.8-7.8 K/mm3 LY# 1.1 0.7-4.5 K/mm3 MO# 0.6 0.1-1.0 K/mm3 EO# 0.3 0.0-0.4 K/mm3 BA# 0.0 0-0.2 K/mm3 CBC Venipuncture (in house) Reviewed date:05/03/2024 12:12:58 PM Interpretation: Performing Lab: Notes/Report: wbc 5.4 3.5 - 10 lymph 22.6% 15 - 50 mid 5.8% 2 - 15 gran 71.6% 35 - 80 rbc 3.35 3.5 - 5.5 hgb 10.3 11.5 - 16.5 hct 30.5 35 - 55 mcv 91.0 75 - 100 mch 30.9 25 - 35 mchc 33.9 31 - 38 platlet 136 100 - 400 P-Comprehensive Metabolic Pa octavio (CMP) Reviewed date:05/04/2024 08:32:13 AM Interpretation:bun 6, Ca 8.3, prot 5.3, alb 2.7, a/g 1 Performing Lab: Notes/Report: CLIA: [id number] Jong Schneider MD, [employer] [address] [place] [address] , [place] [address] Test performed by [employer] Sodium 139 135-145 mmol/L Potassium 3.5 3.5-5.3 mmol/L Chloride 105 97-108 mmol/L CO2 25 22-32 mmol/L Glucose 99 65-99 mg/dL BUN 6 8-23 mg/dL Creatinine 0.84 0.70-1.30 mg/dL Calcium 8.3 8.6-10.4 mg/dL eGFR by Creatinine 97 >59 mL/min/1.73m2 Protein 5.3 6.0-8.3 g/dL Albumin 2.7 3.5-5.3 g/dL Alkaline Phosphatase 85 40-129 IU/L ALT (SGPT) 10 <5-55 IU/L AST (SGOT) 26 <5-46 IU/L Bilirubin, Total 1.0 <0.2-1.2 mg/dL A/G Ratio 1.0 1.1-2.5 mg/dL P-TSH reflex to FT4 Reviewed date:05/04/2024 08:32:13 AM Interpretation: Normal Performing Lab: Notes/Report: Test performed by [employer] [address] [place] [address] , [place] [address] Jong Schneider MD, [employer] CLIA: [id number] TSH reflex to FT4 2.46 0.43-5.25 mU/L Calculated Calcium Reviewed date:05/04/2024 08:32:13 AM Interpretation: Normal Performing Lab: Notes/Report: Test performed by [employer] [address] [place] [address] , [address], [place] [address] Jong Schneider MD, [employer] CLIA: [id number] Calculated Calcium 9.3 8.5-10.3 mg/dL Hemoccult- IFOBT (in house) Reviewed date:06/20/2024 10:12:57 AM Interpretation:Positive Performing Lab: Notes/Report: Positive results positive H-CBC Reviewed date:06/22/2024 01:55:08 PM Interpretation: Performing [...] AGRATIO 1.1 1.1-1.8 ALP 72 38-126 U/L RPR Reviewed date:07/01/2024 10:54:38 AM Interpretation: Performing Lab: Notes/Report: H-CBC Reviewed date:07/01/2024 10:55:32 AM Interpretation:wbc 4.7, rbc 3.29, hgb 8.8, hct 28.9, mch 26.6, mchc 30.2 Performing Lab: Notes/Report: WBC 4.7 4.8-10.8 K/mm3 RBC 3.29 4.60-6.20 M/mm3 HGB 8.8 14.1-18.0 g/dL HCT 28.9 42.0-52.0 % MCV 87.9 80-94 fl MCH 26.6 27.0-31.2 pg MCHC 30.2 31.8-35.4 g/dL RDW 15.2 11.5-17.5 % PLT 149 142-424 K/mm3 MPV 9.2 7.4-10.4 fl NE% 62.7 37.0-80.0 % LY% 20.9 10-50 % MO% 10.2 1.7-9.3 % EO% 5.7 0.1-12.0 % BA% 0.4 0.1-2.0 % NE# 2.9 1.8-7.8 K/mm3 LY# 1.0 0.7-4.5 K/mm3 MO# 0.5 0.1-1.0 K/mm3 EO# 0.3 0.0-0.4 K/mm3 BA# 0.0 0-0.2 K/mm3 H-Ammonia Reviewed date:07/01/2024 10:55:33 AM Interpretation:36 Performing Lab: Notes/Report: AMM 36 9-30 umol/L H-CMP Reviewed date:07/01/2024 10:55:33 AM Interpretation:cl 115, co2- 18, prot 6.2, alb 3.2 Performing Lab: Notes/Report: NA 140 136-145 mmol/L K 3.8 3.5-5.1 mmoL/L CL 115 98-107 mmol/L CO2 18 22.0-30.0 mmol/L GAP 10.8 5-15 mEq/L BUN 17 9-20 mg/dl CREATT 1.00 0.66-1.25 mg/dl CRCLE 106 50-200 mL/min GFRAA 91 >60 ML/MIN EGFR 75 >60 ml/min GLU 96 74-100 mg/dl CA 8.5 8.4-10.2 mg/dl BILIT 1.3 0.2-1.3 mg/dl AST 36 17-59 U/L ALT 24 12-78 U/L TP 6.2 6.3-8.2 g/dl ALB 3.2 3.5-5.0 g/dl GLOB 3.0 1.3-3.2 g/dL AGRATIO 1.1 1.1-1.8 ALP 76 38-126 U/L H-PHOS Reviewed date:07/01/2024 10:55:33 AM Interpretation:Normal Performing Lab: Notes/Report: PHOS 3.8 2.5-4.5 mg/dl H-Magnesium Reviewed date:07/01/2024 10:55:33 AM Interpretation:1.5 Performing Lab: Notes/Report: MG 1.5 1.6-2.3 mg/dl MRI : Brain with and without contrast Reviewed date:08/16/2024 11:43:02 AM Interpretation: see duplicate order Performing Lab: Notes/Report: see duplicate order MRI : Brain with and w/o con trast Reviewed date:07/01/2024 10:55:32 AM Interpretation: Performing Lab: Notes/Report: Medications Medication SIG (Take, Route, Frequency, Duration) Notes Start Date End Date Status Spironolactone 50 MG TAKE 1 TABLET BY [facility] TWICE A DAY; Duration: 90 Active Bisoprolol Fumarate 10 MG 1 tablet Orall y Once a day; Duration: 30 day(s) Active Xarelto 15 MG 1 tablet with food O rally Once a day; Duration: 30 day(s) Active Immunizations Vaccine Route Administration Date Status Comme nts COVID 19 Moderna Unknown 12/27/2020 Administered COVID 19 Moderna Unknown 01/24/2021 Administered flucelvax IM Intramuscular 09/08/2013 Administered Fluzone PF Quad (6-35 months) Unknown 06/05/2017 Administered Fluzone PF Quad (6-35 months) Unknown 09/28/2023 Administered Fluzone Quad (6months&older) Unknown 06/05/2017 Administered Fluzone Quad (6months&older) Unknown 08/16/2018 Administered Fluzone Quad (6months&older) IM Intramuscular 09/05/2019 Administered Hepatitis A (adult) Unknown 10/14/2018 Administered Hepatitis A (adult) IM Intramuscular 04/25/2019 Administer ed Shingrix Unknown 08/16/2018 Administered xFluzone (6mos and older)-trivalent Unknown 08/19/2021 Administered Problems Problem Type SNOMED Code ICD Code Onset Dates Problem Status W/U Status Risk Notes Problem Nondependent alcohol abuse (879115700) EtOH [Ethanol] abuse NOS (305.00) Active confirmed Problem Abnormal liver function (55189809) Abnormal liver function study (794.8) Active confirmed Problem Essential hypertension (90424570) Essential (primary) hypertension (I10) Active confirmed Problem Hypertension (37670669) HTN (hypertension) (I10) Active confirmed Problem Vitamin D deficiency (67775527) Vitamin D deficiency (E55.9) Active confirmed Problem Hypertriglyceridemia (185763247) Hypertriglyceridemia (E78.1) Active confirmed Problem Abnormal results of liver function studies (665099927) Abnormal results of liver function studies (R94.5) Active confirmed Problem Mixed hyperlipidemia (872216681) Mixed hyperlipidemia (E78.2) Active confirmed Problem Mitral valve disorde r (75692126) Nonrheumatic mitral (valve) insufficiency (I34.0) Active confirmed Problem Ventricular prematur e depolarization (245018784) Ventricular premature depolarization (I49.3) Active confirmed Problem Gout (15761199) Gout, unspecifie d (M10.9) Active confirmed Problem Male erectile disorder (722244564) Male erectile disorder (N52.9) Active confirmed Problem Chronic pain (87818153) Other chronic pain (G89.29) Active confirmed Problem Atherosclerosis of coronary artery without angina pectoris (826385905908031) Atherosclerosis of [place] coronary artery of [place] heart without angina pectoris (I25.10) Active confirmed Problem Thrombocytopenia (794633003) Thrombocytopenia (D69.6) Active confirmed Problem Atherosclerotic hear t disease of [place] coronary artery without angina pectoris (419065586350836) Coronary artery disease involving [place] coronary artery of [place] heart without angina pectoris (I25.10) Active confirmed Problem Gastroesophageal reflux disease (471309744) Gastroesophageal reflux disease, esophagitis presence not specified (K21.9) Active confirmed Problem Leukocytosis (003888477) Leukocytosis, unspecified type (D72.829) Active confirmed Problem Anemia (234408619) Anemia, unspe cified type (D64.9) Active confirmed Problem Alcoholism (0893324) Alcoholism (F10.20) Active confirmed Problem Localized, primary osteoarthritis of the shoulder region (366398534) 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) Active confirmed Problem Sciatica (44066398) Right-sided low back pain with right-sided sciatica, unspecified chronicity (M54.41) Active confirmed Problem Gastrointestinal hemorrhage (47919517) Gastrointestinal hemorrhage, unspecified gastrointestinal hemorrhage type (K92.2) Active confirmed Problem Thyromegaly (4853160) Thyromegaly (E01.0) Active confirmed Problem Acute on chronic diastolic heart failure (997682655) Acute on chronic diastolic congestive heart failure (I50.33) Active confirmed Problem Arthritis of left knee (8532827194086324) Arthritis of left knee (M17.12) Active confirmed Problem Type II diabetes mellitus without complication (460135226) Type 2 diabetes mellitus without complication, unspecified whether terminal gauger insulin use (E11.9) Active confirmed Problem Diastolic dysfunctio n (4356736) Diastolic dysfunction (I51.89) Active confirmed Problem Bradyarrhythmia (148294779) Bradyarrhythmia (I49.8) Active confirmed Problem Cardiac arrhythmia (896717243) Bigeminy (I49.8) Active confirmed Problem Chronic idiopathic thrombocytopenic purpura (disorder) (17803519) Idiopathic thrombocytopenic purpura (ITP) (D69.3) Active confirmed Vital Signs Heart Rate 54 /min 11/17/2024 Blood pressure diastolic 74 mm Hg 11/17/2024 Height 74 in 11/17/2024 Blood pressure systolic 118 mm Hg 11/17/2024 Weight 227.8 lbs 11/17/2024 BMI 29.24 kg/m2 11/17/2024 Encounters Encounter Location Date Provider Diagnosis [facility] [address] [facility] [address] [place], [place] [id number] 05/03/2024 Pasquale [place] Peripheral edema R60 .0 ; Low serum total protein level R79.89 ; Low blood pressure reading R03.1 ; Pain in right leg M79.604 ; Multiple open wounds of right lower extremity, subsequent encounter S81.801D and Idiopathic thrombocytopenic purpura (ITP) D69.3 [facility] [address] [facility] [address] [place], [place] [id number] 06/09/2024 Pasquale [place] Umbilical hernia wit hout obstruction and without gangrene K42.9 [facility] [address] [facility] [address] [place], [place] [id number] 06/15/2024 Pasquale [place] Anemia, unspecified type D64.9 and Heartburn R12 [facility] [address] [facility] [address] [place], [place] [id number] 06/20/2024 Pasquale [place] [facility] [address] [facility] [address] [place], [place] [id number] 06/22/2024 Pasquale [place] Confusion R41.0 ; Anemia, unspecified type D64.9 ; Peripheral edema R60.0 and Heme positive stool R19.5 [facility] [address] [facility] [address] [place], [place] [id number] 07/08/2024 Pasquale [place] Intermittent confusi on R41.0 and Dizziness R42 [facility] [address] [facility] [address] [place], [place] [id number] 09/27/2024 Lana Perera Cellulitis of right leg L03.115 and Wound of right lower extremity, subsequent encounter S81.801D [facility] [address] [facility] [address] [place], [place] [id number] 10/04/2024 Lana Perera Cellulitis of right leg L03.115 and Wound of right lower extremity, subsequent encounter S81.801D [facility] [address] [facility] [address] [place], [place] [id number] 11/17/2024 Pasquale [place] Pre-op exam Z01.818 ; Arthritis of left knee M17.12 ; Anemia, unspecified type D64.9 ; Thyromegaly E01.0 ; Coronary artery disease involving [place] coronary artery of [place] heart without angina pectoris I25.10 ; Type 2 diabetes mellitus without complication, unspecified whether terminal gauger insulin use E11.9 ; Mixed hyperlipidemia E78.2 ; HTN (hypertension) I10 ; Gastroesophageal reflux disease, esophagitis presence not specified K21.9 ; Gout, unspecified M10.9 and Open wound of right lower extremity, subsequent encounter S81.801D [facility] [address] [facility] [address] [place] [id number] 05/04/2024 Pasquale [place] [facility] [address] [facility] [address] [place] [id number] 05/06/2024 Pasquale [place] [facility] [address] [facility] [address] [place] [id number] 05/06/2024 Pasquale [place] [facility] [address] [facility] [address] [place] [id number] 05/09/2024 Pasquale [place] [facility] [address] [facility] [address] [place] [id number] 05/11/2024 Pasquale [place] [facility] [address] [place], [place] [id number] 05/23/2024 Pasquale [place] Thrombocytopenia D69 .6 ; Mixed hyperlipidemia E78.2 and Peripheral edema R60.0 [facility] [address] [place], [place] [id number] 05/24/2024 Pasquale [place] [facility] [address] [place] [id number] 06/13/2024 Pasquale [place] Anemia, unspecified type D64.9 and Peripheral edema R60.0 [facility] [address] [place], [place] [id number] 06/20/2024 Pasquale [place] [facility] [address] [place] [id number] 06/22/2024 Pasquale [place] [facility] [address] [place], [place] [id number] 06/29/2024 Pasquale [place] Confusion R41.0 ; Anemia, unspecified type D64.9 and Cramp in limb R25.2 [facility] [address] [place], [place] [id number] 07/01/2024 Pasquale [place] [facility] [address] [place], [place] [id number] 07/18/2024 Pasquale [place] [facility] [address] [place], [place] [id number] 08/18/2024 Pasquale [place] [facility] [address] [place], [place] [id number] 09/30/2024 Lana Perera Wound of right lower extremity, subsequent encounter S81.801D [facility] [address] [place], [place] [id number] 04/07/2025 Pasquale [place] Assessments Encounter Date Diagnosis (ICD Code) Assessment Notes Treatment Notes Treatment Clinical Notes Section Notes 05/03/2024 Peripheral edema (ICD-10 - R60.0) 05/03/2024 Low serum total protein level (ICD-10 - R79.89) 06/09/2024 Umbilical hernia without obstruction and without gangrene (ICD-10 - K42.9) 06/13/2024 Anemia, unspecified type (ICD-10 - D64.9) 06/13/2024 Peripheral edema (ICD-10 - R60.0) 06/15/2024 Heartburn (ICD-10 - R12) 06/15/2024 Anemia, unspecified type (ICD-10 - D64.9) 06/22/2024 Confusion (ICD-10 - R41.0) Sympotms have resolved, unclear etiology 05/23/2024 Thrombocytopenia (ICD-10 - D69.6) 06/22/2024 Anemia, unspecified type (ICD-10 - D64.9) Patient to follow up with Dr. Bermudez tomorrow 06/29/2024 Anemia, unspecified type (ICD-10 - D64.9) 07/08/2024 Dizziness (ICD-10 - R42) 07/08/2024 Intermittent confusion (ICD-10 - R41.0) 09/27/2024 Cellulitis of right leg (ICD-10 - L03.115) elevate the leg as much as possible 09/27/2024 Wound of right lower extremity, subsequent encounter (ICD-10 - S81.801D) keep wound dry with showering; apply mupirocin around edges of the wound ; keep covered 09/30/2024 Wound of right lower extremity, subsequent encounter (ICD-10 - S81.801D) 10/04/2024 Cellulitis of right leg (ICD-10 - L03.115) elevate the leg as much as possible 10/04/2024 Wound of right lower extremity, subsequent encounter (ICD-10 - S81.801D) keep wound dry with showering; apply mupirocin around edges of the wound ; keep covered 06/29/2024 Confusion (ICD-10 - R41.0) 11/17/2024 Pre-op exam (ICD-10 - Z01.818) PATIENT IS CLEARED FOR SURGERY, BUT HE IS AT LEAST AT MODERATE RISK FOR PERIOPERATIVE AND POSTOPERATIVE COMPLICATIONS. 11/17/2024 Arthritis of left knee (ICD-10 - M17.12) 06/29/2024 Cramp in limb (ICD-10 - R25.2) 11/17/2024 Anemia, unspecified type (ICD-10 - D64.9) 06/22/2024 Peripheral edema (ICD-10 - R60.0) 05/23/2024 Mixed hyperlipidemia (ICD-10 - E78.2) 05/03/2024 Low blood pressure reading (ICD-10 - R03.1) 05/03/2024 Pain in right leg (ICD-10 - M79.604) 05/23/2024 Peripheral edema (ICD-10 - R60.0) 06/22/2024 Heme positive stool (ICD-10 - R19.5) 11/17/2024 Thyromegaly (ICD-10 - E01.0) 11/17/2024 Coronary artery disease involving [place] coronary artery of [place] heart without angina pectoris (ICD-10 - I25.10) 05/03/2024 Multiple open wounds of right lower extremity, subsequent encounter (ICD-10 - S81.801D) 05/03/2024 Idiopathic thrombocytopenic purpura (ITP) (ICD-10 - D69.3) 11/17/2024 Type 2 diabetes mellitus without complication, unspecified whether fdc insulin use (ICD-10 - E11.9) 11/17/2024 Mixed hyperlipidemia (ICD-10 - E78.2) 11/17/2024 HTN (hypertension) (ICD-10 - I10) 11/17/2024 Gastroesophageal reflux disease, esophagitis presence not specified (ICD-10 - K21.9) 11/17/2024 Gout, unspecified (ICD-10 - M10.9) 11/17/2024 Open wound of right lower extremity, subsequent encounter (ICD-10 - S81.801D) Plan Of Treatment Pending Test Test Name Order Date CXR 04/03/2023 Insurance Providers Payer Name Payer Address Payer Phone Subscriber Number Group Number Insured Name Patient Relationship to Insured Coverage Start Date Coverage End Date MEDICARE PART B [address] [address] [place] [id number] [phone] [id number] Solo Burch Self - patient is the insured [facility] [employer] [facility] [address] [place] [address] [id number] Solo Burch Self - patient is the insured Medications Administered Medication Instructions Date of Administration Dosage Notes Depo- Medrol 40 mg/ml 09/01/2016 1 mL Medical (General) History Medical History History ICD Code Coronary Artery Disease, LT Heart Cath, [facility] 06/2019 Hypertension A Fib Hyperlipidemia Gout ETOH abuse Abnormal LFT's Bilateral Inguinal Hernia Diastolic Dysfunction, Echo, 09/2019 Osteoarthritis anemia/GI bleed April 2023 Thrombocytopenia, s/p Heme/Onc evaluatio n at [facility] cirrhosis, s/p GI evaluation with Dr. Alivia batres DVT, Right leg, 2023 Immune Thrombocytopenia Purpura Surgical History Surgery Date(Month/Year) LT Shoulder Replacement 2005 Bilateral inguinal hernia repair 013 Percutaneous Coronary Intervention, 3 St ents Placed 06/2019 Rotator Cuff Tear Repair 02/18/2022 umbilical hernia repair - At 08/2023 Hospitalization History Reason Date(Month/Year)
--- OUTSIDE RECORDS SUMMARY | 2025-05-01 08:44 | XMS_ITS | Encounter Summary ---
Author Organization Healthcare Address [address] [place] [address] Care Team Providers Care Magazine Supervisor Name Role Phone Pasquale Girard MD Primary Care Provider [phone] Reason for Referral * Consultation (Routine) - Authorized Specialty Diagnoses / Procedures Referred By Haritha garcia Referred To Contact Orthopaedic Surgery Diagnoses Osteoarthritis of left knee, unspecified osteoarthritis type Wilner Ortiz DO [address] [place] [address] Phone: tel: fax: Jimbo Grover MD [address] [address] Phone: tel: fax: Referral ID Status Reason Start Date Expiration Date V isits Requested Visits Authorized [id number] Authorized 07/22/2024 01/21/2026 1 1 Encounter Details Date Type Department Care Team (Latest Contact Info) Description 07/22/2024 [facility] [address] [place] [address] Wilner Ortiz DO [address] [place] [id number] Osteoarthritis of left knee, unspecified osteoarthritis type (Primary Dx) Social History Tobacco Use Types Packs/Day Years Used Date Smoking Tobacco: Never Smokeless Tobacco: Never Alcohol Use Standard Drinks/Week Comments Not Currently 0 (1 standard drink = 0.6 oz pur e alcohol) Sex and Gender Information Value Date Recorded Sex Assigned at Not on file Legal Sex Male 7:42 PM EDT Gender Identity Not on file Sexual Orientation Not on file documented as of this encounter Plan of Treatment Scheduled Referrals Name Type Priority Associated Diagnoses Orde r Schedule Ambulatory referral to Orthopaedics Joint Reconstruction Outpatient Referral Routine Osteoarthritis of left knee, unspecified osteoarthritis type Expected: 07/22/2024 (Approximate), Expires: 07/22/2025 documented as of this encounter Visit Diagnoses Diagnosis Osteoarthritis of left knee, unspecified osteoarthritis type- Primary documented in this encounter Care Teams Magazine Supervisor Relationship Specialty Start Date End Date Pasquale Girard MD [address] [place] [address] PCP - General 03/15/21 documented as of this encounter
--- OUTSIDE RECORDS SUMMARY | 2025-05-01 08:44 | XMS_ITS | Clinical Summary ---
Author Organization Healthcare Address [address] [place] [address] Care Team Providers Care Forming Machine Adjuster Name Role Phone Pasquale Girard MD Primary Care Provider [phone] Allergies No known active allergies Medications bisoprolol (Zebeta) 5 MG tablet Take 1 tablet (5 mg) by mouth 1 (one) time each day. 04/28/2023 Active furosemide (Lasix) 40 MG tablet Take 1 tablet (40 mg) by mouth 1 (one) time each day. 04/04/2023 Active hyoscyamine (Levsin) 0.125 MG SL tablet Take 1 tablet (0.125 mg) by mouth every 6 (six) hours if needed. 06/12/2023 Active losartan (Cozaar) 100 MG tablet Take 1 tablet (100 mg) by mouth 1 (one) time each day. 05/04/2023 Active pantoprazole (Protonix) 40 MG EC tablet Take 1 tablet (40 mg) by mouth 1 (one) time each day. 07/23/2023 Active methocarbamol (Robaxin) 500 MG tablet Take 1 tablet (500 mg) by mouth every 8 (eight) hours for 10 days. 30 tablet 08/06/2023 Active phenol (Chloraseptic) 1.4 % liquid Use 1 mL (1 spray) in the mouth or throat every 2 (two) hours if needed for sore throat. 20 mL 08/06/2023 Active Active Problems Problem Noted Date Diagnosed Date Umbilical hernia with gangrene and obstruction 0 08/01/2023 Overview (08/02/2023): S/p primary umbilical hernia repair and small bowel resection with anastomosis 08/01 Pressure dressing, may remove 08/03 Monitor RITA drain output and replace as needed NGT decompression, clamp trial HTN (hypertension) 08/01/2023 GERD (gastroesophageal reflux disease) Cirrhosis 08/01/2023 Overview (08/02/2023): MELD13 on presentation CAD (coronary artery disease) 08/01/2023 Resolved Problems Problem Noted Date Diagnosed Date Resolved Date Strangulated umbilical hernia 08/01/2023 08/02/2023 Immunizations Immunization Administration Dates Next Due Hep A, Adult 10/14/2018 Influenza, injectable, MDCK, preservative free, quadrivalent 09/09/2022,07/30/2020 Influenza, injectable, quadrivalent, preservativ e free 06/05/2017 Influenza, seasonal, injectable 08/19/2021 Moderna COVID-19 Vaccine (Switch Maker) 12+ years ,12/27/2020 Social History Tobacco Use Types Packs/Day Years Used Date Smoking Tobacco: Never Smokeless Tobacco: Never Tobacco Cessation:Counseling Given: Not Answered Alcohol Use Standard Drinks/Week Comments Not Currently 0 (1 standard drink = 0.6 oz pur e alcohol) Sex and Gender Information Value Date Recorded Sex Assigned at Not on file Legal Sex Male 7:42 PM EDT Gender Identity Not on file Sexual Orientation Not on file Last Filed Vital Signs Vital Sign Reading Time Taken Comments Blood Pressure 122/56 08/06/2023 11:01 AM EDT Pulse 39 08/06/2023 11:01 AM EDT Temperature 36.5 C (97.7 F) 08/06/2023 11:01 AM EDT Respiratory Rate 18 08/05/2023 10:37 PM EDT Oxygen Saturation 98% 08/06/2023 11:01 AM EDT Inhaled Oxygen Concentration - - Weight 107 kg (234 lb 12.6 oz) 08/01/2023 2:05 P M EDT Height 185.4 cm (6' 1 ) 08/01/2023 2:05 PM EDT Body Mass Index 30.98 08/01/2023 2:05 PM EDT Plan of Treatment Health Maintenance Due Date Last Done Comments [facility]-Depression Screening 1960 [facility]-Medicare Annual Wellness (AWV) 1960 [facility]-/Child/Adol SDOH Screenings 1959 [facility]-Obesity Intervention 1965 [facility]- SDOH Screenings 1977 [facility]-Adult SDOH Screenings 1977 [facility]-DTaP,Tdap,and Td Vaccines (1 - Tdap) 1978 [facility]-Pneumococcal Vaccine: 50+ Years (1 of 2 - PCV) 1978 CT Colonography 2004 Colonoscopy 2004 FIT-DNA 2004 FIT 2004 FOBT 2004 Sigmoidoscopy 2004 [facility]-Colorectal Cancer Screening 2004 [facility]-Zoster Vaccines (1 of 2) 2009 [facility]-Hepatitis A Vaccines (2 of 2 - Risk 2-dose series) 2019 10/14/2018 [facility]-RSV Vaccine: 60+ Years or (1 - Risk 60-74 years 1-dose series) 2019 [id number]-93 Vaccine ( - season) 2024 01/24/2021, 12/27/2020 [facility]-Influenza Vaccine (Season Ended) 2025 09/09/2022, 08/19/2021, 07/30/2020, Additional history exists [facility]-Hepatitis C Screening Completed 08/01/2023 HPV Vaccines Aged Out No longer eligi ble based on patient's age to complete this topic [facility]-HIB Vaccines Aged Out No longer e ligible based on patient's age to complete this topic [facility]-IPV Vaccines Aged Out No longer e ligible based on patient's age to complete this topic [facility]-Rotavirus Vaccines Aged Out No lo nger eligible based on patient's age to complete this topic Procedures Procedure Name Priority Date/Time Associated Diagnosis Comments HEPATITIS C ANTIBODY - ED W/REFLEX TO HCV QUANT PCR STAT 08/01/2023 2:26 PM EDT from Last 3 Months or Most Recently Relevant to Health Maintenance Results * Hepatitis C Antibody - ED (08/01/2023 2:26 PM EDT) Hepatitis C Antibody Negative Negative 08/01/2023 3:23 PM EDT [facility] Blood Venous blood specimen / Unknown Venipuncture / Unknown 08/01/2023 2:26 PM EDT 08/01/2023 2:42 PM EDT Sheri Pennington MD LAB BLOOD ORDERABLES Final Resu lt [facility] [address] [place] [address] from Last 3 Months or Most Recently Relevant to Health Maintenance [place] [address] Advance Directives * Full Code (Latest Code Status on File) Date Activated Date Inactivated Comments 08/01/2023 3:26 PM 08/06/2023 6:04 PM Question Answer Comments Patient has decision-making capacity? Yes Care Teams Forming Machine Adjuster Relationship Specialty Start Date End Date Pasquale Girard MD [address] [facility] [address] [place] [address] PCP - General 5/14/21
--- NOTE | 2025-05-01 08:49 | PC.NURSE ---
0849-collected labs via venipuncture stick in right ac with butterfly needle;pt to d/c home
[2025-05-01 09:18] LABS: Basophils # 0.1 K/mm3 (0-0.2); Eosinophils # 0.2 Kmm3 (0.0-0.4); Eosinophils % 4.5 % (0.1-12.0); Hematocrit 37.1 % (42.0-52.0); Hemoglobin 12.3 g/dL (14.1-18.0); Immature Granulocytes # 0.01 10^3uL; Immature Granulocytes % 0.2 %; Lymphocytes # 1.1 K/mm3 (0.7-4.5); Mean Corpuscular HGB Conc 33.2 g/dL (31.8-35.4); Mean Corpuscular Hemoglobin 27.2 pg (27.0-31.2); Mean Corpuscular Volume 81.9 fl (80-94); Mean Platelet Volume 10.7 fl (7.4-10.4); Monocytes # 0.6 K/mm3 (0.1-1.0); Monocytes % 12.4 % (1.7-9.3); Neutrophils # 2.9 K/mm3 (1.8-7.8); Neutrophils % 58.9 % (37.0-80.0); Nucleated Red Blood Cells # 0 10^3/uL; Nucleated Red Blood Cells % 0 %; Platelet Count 88 K/mm3 (142-424); Red Blood Count 4.53 M/mm3 (4.60-6.20); Red Cell Distribution Width 15.7 % (11.5-17.5); Red Cell Distribution Width-SD 47.3 fL; White Blood Count 4.9 K/mm3 (4.8-10.8)
[2025-05-01 09:49] LABS: Albumin Level 3.9 g/dl (3.5-5.0); Chloride 99 mmol/L (98-107); Potassium 4.4 mmoL/L (3.5-5.1); Sodium 132 mmol/L (136-145)
[2025-05-01 09:52] LABS: Alanine Aminotransferase 33 U/L (12-78); Albumin/Globulin Ratio 1.3 (1.1-1.8); Alkaline Phosphatase 72 U/L (38-126); Anion Gap 14.4 mEq/L (5-15); Aspartate Amino Transferase 61 U/L (17-59); Bilirubin,Total 1.5 mg/dl (0.2-1.3); Blood Urea Nitrogen 6 mg/dl (9-20); Calcium 8.9 mg/dl (8.4-10.2); Carbon Dioxide 23 mmol/L (22.0-30.0); Estimated Glomerular Filt Rate 97 ml/min (>60); GFR (African American) 117 ML/MIN (>60); Globulin 2.9 g/dL (1.3-3.2); Glucose 105 mg/dl (74-100); Iron 39 ug/dL (49-181); Total Protein,Serum 6.8 g/dl (6.3-8.2)
[2025-05-01 10:02] LABS: Total Iron Binding Capacity 374 ug/dL (261-462)
[2025-05-01 10:28] LABS: Ferritin 43.7 ng/ml (17.9-464)
== END 2025-05-01 08:55 | disposition home or self-care (01) ==
LOC: INF 08:41
PROVIDERS: PCP Family Medicine; Visit Provider Internal Medicine Medical Oncology
DX: D69.3 Immune thrombocytopenic purpura (principal)
CPT/HCPCS: 36415; 80053; 82728; 83540; 83550; 85025

== ENCOUNTER 2025-05-10 10:07 | Outpatient (CLI) | payer MEDICARE, BC, SELFPAY ==
--- OUTSIDE RECORDS SUMMARY | 2025-05-10 10:18 | XMS_ITS | Clinical Summary ---
Author Organization DANIEL LILA OD Address [facility] [place] [address] Phone Care Team Providers Care Pantograph Machine Operator Name Role Phone Unavailable Primary [...] Vaccine (2023-2 5 season) 2024 Influenza Vaccine (#1) 2025 Hepatitis B Vaccine Aged Out No longe r eligible based on patient's age to complete this topic Meningococcal B Vaccine Aged Out No l onger eligible based on patient's age to complete this topic
--- OUTSIDE RECORDS SUMMARY | 2025-05-10 10:18 | XMS_ITS | Encounter Summary ---
Author Organization Healthcare Address [address] [place] [address] Care Team Providers Care Camp Nurse Name Role Phone Pasquale Girard MD Primary Care Provider [phone] Reason for Referral * Consultation (Routine) - Authorized Specialty Diagnoses / Procedures Referred By Haritha garcia Referred To Contact Orthopaedic Surgery Diagnoses Osteoarthritis of left knee, unspecified osteoarthritis type Wilner Ortiz DO [address] [place] [address] Phone: tel: fax: Jimbo Grover MD [address] [address] Phone: tel: fax: Referral ID Status Reason Start Date Expiration Date V isits Requested Visits Authorized [id number] Authorized 07/22/2024 01/21/2026 1 1 Encounter Details Date Type Department Care Team (Latest Contact Info) Description 07/22/2024 [facility] [address] [place] [address] Wilner Ortiz DO [address] [place] [id number] Osteoarthritis of left knee, unspecified osteoarthritis type [...] Primary documented in this encounter Care Teams Camp Nurse Relationship Specialty Start Date End Date Pasquale Girard MD [address] [place] [address] PCP - General 03/15/21 documented as of this encounter
--- OUTSIDE RECORDS SUMMARY | 2025-05-10 10:18 | XMS_ITS | Clinical Summary ---
Author Organization Healthcare Address [address] [place] [address] Care Team Providers Care Fire Equipment Operator Name Role Phone Pasquale Girard MD Primary Care Provider [phone] Allergies No known active allergies Medications bisoprolol [...] Influenza, seasonal, injectable 08/19/2021 Moderna COVID-19 Vaccine (Floorworker Distributor) 12+ years ,12/27/2020 Social History Tobacco Use [...] Screening 1959 [facility]-Medicare Annual Wellness (AWV) 1959 [facility]-Infant/Child/Adol SDOH Screenings 1959 [facility]-Obesity Intervention 1965 [facility]- [...] - Risk 60-74 years 1-dose series) 2019 [id number] Vaccine (3 - season) 2024 01/24/2021, 12/27/2020 [facility]-Influenza Vaccine (#1) 07/03/202509/09, 08/19/2021, 07/30/2020, Additional history exists [facility]-Hepatitis C [...] ORDERABLES Final Resu lt [facility] [address] [place] [address] from Last 3 Months or Most Recently Relevant to Health Maintenance [place] [address] Advance Directives * Full Code (Latest Code Status on File) Date Activated Date Inactivated Comments 08/01/2023 3:26 PM 08/06/2023 6:04 PM Question Answer Comments Patient has decision-making capacity? Yes Care Teams Fire Equipment Operator Relationship Specialty Start Date End Date Pasquale Girard MD [address] [facility] [address] [place] [address] PCP - General 5/14/21
--- NOTE | 2025-05-10 10:20 | PC.NURSE ---
1020-collected labs via venipuncture with butterfly needle in right ac;pt d/c home
[2025-05-10 10:45] LABS: Activated Partial Thrombo Time 45.1 seconds (22.8-30.6); INR 2.25 (0.9-1.1); Prothrombin Time 23.5 seconds (10.1-12.5)
== END 2025-05-10 10:23 | disposition home or self-care (01) ==
LOC: INF 10:09
PROVIDERS: PCP Family Medicine; Visit Provider Internal Medicine Medical Oncology
DX: D69.3 Immune thrombocytopenic purpura (principal)
CPT/HCPCS: 36415; 85610; 85730

== ENCOUNTER 2025-05-12 08:59 | Outpatient (CLI) | payer MEDICARE, BC, SELFPAY ==
--- OUTSIDE RECORDS SUMMARY | 2024-09-27 06:45 | XMS_ITS ---
Author Organization [facility] Address 1210 [facility] [address] [place] [id number] Care Team Providers Care Drawbench Operator Helper Name Role Phone Pasquale Girard Primary Care Provider [phone] Perera Lana Unavailable [phone] Allergies No Known Allergies Results Component Value Reference Range Notes P-Culture, Wound Aerobic w/G jojo Stain Reviewed date:10/01/2024 12:10:32 PM Interpretation: Performing Lab: Notes/Report: Test performed by [employer] [address] , [address], [place] [address] Jong Schneider MD, Home Furnishings Sales Representative CLIA: [id number] Specimen Source Leg - Lower Right Leg [...] day(s) Active Santyl 250 UNIT/GM 1 application Calender Wind Up Helper ally Once a day 05/04/2024 Active Spironolactone [...] 09/27/2024 Active Mupirocin 2 % 1 application Calender Wind Up Helper ally qd; Duration: 30 days 09/27/2024 Active Vital Signs Blood pressure systolic 130 mm Hg 09/27/20 24 Blood pressure diastolic 74 mm Hg 024 Heart Rate 87 /min 09/27/2024 Height 74 in 09/27/2024 Weight 224.7 lbs 09/27/2024 BMI 28.85 kg/m2 09/27/2024 Encounters Encounter Location Date Provider Diagnosis [facility] [address] [facility] [address] [place] [phone] 09/27/2024 Lana Perera Cellulitis of right leg [...] day(s) 09/27/2024 Mupirocin 2 % 1 application Calender Wind Up Helper ally qd; Duration: 30 days 09/27/2024 Treatment Notes Assessment Notes Cellulitis of right leg elevate the leg as much as possible Wound of right lower extremi ty, subsequent encounter keep wound dry with showering; apply mupirocin around edges of the wound ; keep covered Next Appt Details Follow Up: 1 Week, Reason: Progress Notes * Solo AMBROSEDOB:[birth year] (65 yo M)Acc No.[id number]:09/27/2024 Progress Notes Patient: Solo HERNANDEZ Provider: CHARLES Villegas :1960 A ge:64 Y S ex:Male Date:09/27/2024 Address:[address] [place] [address] , [facility] y , [id number] Pcp:Pasquale Girard Subjective: * Chief Complaints: * 1 . Leg wound possible infection. * HPI: D ermatology: 64 year old male presents with c/o ulcer. c/o redness.? c/o Wound P t complains of lower rt leg wound. Pt had been going to [facility] wound clinic but stopped because wound [...] C oronary Artery Disease, LT Heart Cath, [facility] 06/2019, Hypertension, A Fib, Hyperlipidemia, Gout, ETOH abuse, Abnormal LFT's, Bilateral Inguinal Hernia, Diastolic Dysfunction, Echo, 09/2019, Osteoarthritis, anemia/GI bleed April 2023, Thrombocytopenia, s/p Heme/Onc evaluation at [facility], cirrhosis, s/p GI evaluation with Dr. [...] * Images: Billing Information: * Visit Code: 15803 Office Visit, Est Pt., Level 4. * Procedure Codes: G2211 Complex e/m visit add on. * Electronic signature of Viridiana Perera APRN on 05/12/2025 at 09:03 AM EDT Sign off status: Pending * Provider: CHARLES Villegas Date: 11/27/2023 Generated for Azeb gill/Hudson/Alisitting on: 0 05/12/2025 09:03 AM EDT History and Physical Notes * [...] leg wound. Pt had been going to [facility] wound clinic but stopped because wound [...]
--- OUTSIDE RECORDS SUMMARY | 2024-10-04 07:15 | XMS_ITS ---
Author Organization [facility] Address 1210 [facility] [address] [place] [phone] Care Team Providers Care Object Oriented Developer Name Role Phone Pasquale Girard Primary Care Provider [phone] Lana Perera Unavailable [phone] Allergies No Known Allergies REASON FOR VISIT 1 week Medications Medication SIG (Take, Route, Frequency, Duration) Notes Start Date End Date Status Xarelto 15 MG 1 tablet with food O rally Once a day; Duration: 30 day(s) Active Silvadene 1 % 1 application Latex Foam Worker ally Once a day; Duration: 30 days 10/04/2024 Active Spironolactone 50 MG 1 tablet Orally Two times a day; Duration: 30 days Active Bisoprolol Fumarate 10 MG 1 tablet Orall y Once a day; Duration: 30 day(s) Active Mupirocin 2 % 1 application Latex Foam Worker ally qd; Duration: 30 days 09/27/2024 Active levoFLOXacin 500 MG 1 tablet Orally Once a day Active Vital Signs Blood pressure systolic 130 mm Hg 10/04/20 24 Blood pressure diastolic 80 mm Hg 024 Heart Rate 62 /min 10/04/2024 Height 74 in 10/04/2024 Weight 229.2 lbs 10/04/2024 BMI 29.42 kg/m2 10/04/2024 Encounters Encounter Location Date Provider Diagnosis [facility] 12[facility] [address] [place] [phone] 10/04/2024 Lana Perera Cellulitis of right leg [...] Date Notes Silvadene 1 % 1 application Latex Foam Worker ally Once a day; Duration: 30 days [...] * Solo AMBROSEDOB:[birth year] (65 yo M)Acc No.[id number]:10/04/2024 Progress Notes Patient: Solo HERNANDEZ Provider: CHARLES Villegas :1960 A ge:64 Y S ex:Male Date:10/04/2024 Address:[address] [place] [address] , [facility] , [id number] Pcp:Pasquale Girard Subjective: * Chief Complaints: * [...] C oronary Artery Disease, LT Heart Cath, [facility] 06/2019, Hypertension, A Fib, Hyperlipidemia, Gout, ETOH abuse, Abnormal LFT's, Bilateral Inguinal Hernia, Diastolic Dysfunction, Echo, 09/2019, Osteoarthritis, anemia/GI bleed April 2023, Thrombocytopenia, s/p Heme/Onc evaluation at [facility], cirrhosis, s/p GI evaluation with Dr. [...] Temp:97.2, BP:130/80, HR:62, O2 Sat:100% on RA, Nurse:[facility], Ht: 74, BMI:29.42. * Examination: G eneral [...] * Images: Billing Information: * Visit Code: 58044 Office Visit, Est Pt., Level 3. * Procedure Codes: 20631 PULSE OX. G2211 Complex e/m visit add on. * Electronic signature of Viridiana Perera APRN on 05/12/2025 at 09:03 AM EDT Sign off status: Pending * Provider: CHARLES Villegas Date: 1 12/05/2023 Generated for Azeb gill/Hudson/Corrie on: 0 05/12/2025 09:03 AM EDT History [...]
--- OUTSIDE RECORDS SUMMARY | 2024-11-17 06:00 | XMS_ITS ---
Author Organization Jannie Address 1210 [facility] [address] [place] [phone] Care Team Providers Care Tool Pusher Name Role Phone Pasquale Girard Primary Care Provider [phone] Allergies No Known Allergies REASON FOR [...] Encounter Location Date Provider Diagnosis Zander 1210 [facility] [address] [place] [id number] 11/17/2024 Pasquale Girard Pre-op exam Z01.818 ; Arthritis of left knee M17.12 ; Anemia, unspecified type D64.9 ; Thyromegaly E01.0 ; Coronary artery disease involving [place] coronary artery of [place] heart without angina pectoris I25.10 ; Type 2 diabetes mellitus without complication, unspecified whether half-way insulin use E11.9 ; Mixed hyperlipidemia E78.2 [...] - E01.0) 11/17/2024 Coronary artery disease involving [place] coronary artery of [place] heart without angina pectoris (ICD-10 - I25.10) 11/17/2024 Type 2 diabetes mellitus without complication, unspecified whether terminologist insulin use (ICD-10 - E11.9) 11/17/2024 Mixed [...] * Solo AMBROSEDOB:[birth year] (65 yo M)Acc No.[id number]:11/17/2024 Physical Patient: Solo HERNANDEZ Provider: Sofia Girard M.D. :1960 A ge:64 Y S ex:Male Date:11/17/2024 Address:[address] [place] [address] , [facility] y , [id number] Subjective: * Chief Complaints: * 1 . [...] C oronary Artery Disease, LT Heart Cath, [facility] 06/2019, Hypertension, A Fib, Hyperlipidemia, Gout, ETOH abuse, Abnormal LFT's, Bilateral Inguinal Hernia, Diastolic Dysfunction, Echo, 09/2019, Osteoarthritis, anemia/GI bleed April 2023, Thrombocytopenia, s/p Heme/Onc evaluation at [facility], cirrhosis, s/p GI evaluation with [...] E01.0? 5. C oronary artery disease involving [place] coronary artery of [place] heart without angina pectoris - I25.10 6 . T ype 2 diabetes mellitus without complication, unspecified whether terminologist insulin use - E11.9 7 . M [...] * Images: Billing Information: * Visit Code: 45261 Office Visit, Est Pt., Level 4. * Procedure Codes: G2211 Complex e/m visit add on. * Electronic signature of Abbey Girard MD on 05/12/2025 at 09:03 AM EDT Sign off status: Pending * Provider: Sofia Girard M.D. Date: 0 11/17/2024 Generated for Printi ng/Faxing/eTransmitting on: 0 05/12/2025 09:03 AM EDT History [...]
--- OUTSIDE RECORDS SUMMARY | 2025-05-12 09:02 | XMS_ITS | Data Portability ---
Author Organization [facility] Vilchis [facility] CLOSED Address [address] [facility] [address] [place] [address] Assessment Encounter Date Assessment Date Assessment LastModified [...] 1 % topical gel 2017 018 INTERFACE [employer] #[id number], [address] [place], [place], [id number], 8 10:08:42 Patient TargetsNo targets recorded. Patient Instructions Encounter Date Encounter Id Patient Instructions Last Modified By Organization Details Last Modified Time 12/24/2017 [id number] shoulder arthrit is: exercises [email or web address] Not available [...] situation. [email or web address] Not available 12/25/2017 07:56:08 12/29/2017 [id number] shoulder arthrit is: exercises [email or web address] Not available 12/29/2017 10:07:12 Reason for Referral None Reported. Results Created Date Observation Date Name Description Value Unit Range Abnormal Flag Note LastModifiedBy Organization Detail LastModifiedTime 12/24/19 18 12/24/2017 XR, silvianoul aishwarya, 2 or more view Teena song [facility] Jessica ma [address] [place] [address] Paticelsa t Name: KAELYN garcia : [phone] [...] Sahu MD on 018 2:57 PM [email or web address] [facility] [place] [address] [place], [place], [address], 12/24/2017 16:31:00 02/27/20 18 12/29/2017 rf lt shoul aishwarya stero id injec tion [address] [address] Paticelsa t Name: KAELYN KRAUS Paticelsa t [...] Isovue 300 was wasted and discar ded. [facility] 0270-1 315-30 [facility] [address]- 165-05 [facility] [address]- 1610-5 0 IMPRES FRANCISCA: 1. The patien t is status post left should er arthro gram with dexame thason e and bupiva ed inject ion withou t compli cation . Interp reted By: Yo castillo MD Electr onical ly Signed By: Yo castillo MD on 018 12:[email or web address] [facility] [address] [place], [address], 12/29/2017 18:14:15 Result Notes Documentation Provider Name and Address Organization Details Recorded Time Xr, Shoulder, 2 Or More View : [facility] [place] [address] [place] [address] Patient Name: KAELYN KAN Patient : 1960 Patient Ordering Provider: Carol THOMAS EXAM DATE: 12/24/2017 EXAM: XR LT SHOULDER [...] By: Kaelyn Sahu MD Carol THOMAS MD [address] [place] [address], [phone], [facility] 12/24/2017 16:31:00 Procedures Surgical History Date Name Laterality Status Provider Name and Address Organization Details Recorded Time Orthopedic Surgery completed [facility] 12/24/2017 14:09:47 Imaging Results None recorded. Procedure [...] Body mass index (BMI) Body weight Systolic And Diastolic Provider Name and Address Organization Details Last Updated DateTime 12/24/2017 187.96 cm 29.5 kg/m2 775101.25 g 142/82 mm[Hg] [facility] 12/24/2017 14:07:23 Date Recorded Body height Body mass index (BMI) Body weight Systolic And Diastolic Provider Name and Address Organization Details Last Updated DateTime 12/29/2017 187.96 cm 29.5 kg/m2 362594.25 g 165/104 mm[Hg] Mariel Brown [facility] 12/29/2017 09:48:14 Social History Question Answer Notes LastModified by Organizat ion Details LastModified Time Tobacco Smoking Status Never Smoker Hiwot Brown yuki [facility] 12/24/2017 14:09:39 What Was The Date Of [...] History Condition Response COPD N Pneumonia N Anesthesia Complications N Arthritis N Blood Thinners N Liver Disease N Kidney Disease N Allergies/Hayfever N Heart Conditions N Migraines N Diabetes N Tuberculosis N Asthma N Sleep Apnea N Hypertension Y Osteoporosis N Past Encounters Encounter ID Performer Location Encounter Start Date Encounter Closed Date Diagnosis/Indication Diagnosis SNOMED-CT Code Diagnosis ICD10 Code Diagnosis Note [id number] W DARYA THOMAS MD [facility] [address] [place] [address] 12/24/2017 13:55:33 12/24/2017 15:58:56 Localized, primary osteoarthritis of the shoulder region 933217810 M19.000 [id number] CHRISTIANO VILLEGAS MD [facility] [address] [place] [address] 12/29/2017 09:32:32 12/29/2017 11:08:54 Localized, primary osteoarthritis of the shoulder region [id number] M19.019 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 Carol THOMAS MD [address] [place] [address], [phone], [facility] 12/28/2017 07:56:38 12/29/2017 text/html LEFT SHoulder [...] Uses Indomethacin for pain CHRISTIANO VILLEGAS MD [address] [place] [address], [phone], [facility] 12/29/2017 10:09:31
--- OUTSIDE RECORDS SUMMARY | 2025-05-12 09:03 | XMS_ITS | Clinical Summary ---
Author Organization Healthcare Address [address] [place] [address] Care Team Providers Care Electronic Controls Repairer Supervisor Name Role Phone Pasquale Girard MD Primary Care Provider [phone] Allergies No known active allergies Medications bisoprolol [...] Influenza, seasonal, injectable 08/19/2021 Moderna COVID-19 Vaccine (Kettle Firer) 12+ years ,12/27/2020 Social History Tobacco Use [...] - Risk 60-74 years 1-dose series) 2019 [id number] Vaccine (3 - season) 2024 01/24/2021, 12/27/2020 [...] ORDERABLES Final Resu lt [facility] [address] [place] [address] from Last 3 Months or Most Recently Relevant to Health Maintenance [place] [address] Advance Directives * Full Code (Latest Code Status on File) Date Activated Date Inactivated Comments 08/01/2023 3:26 PM 08/06/2023 6:04 PM Question Answer Comments Patient has decision-making capacity? Yes Care Teams Electronic Controls Repairer Supervisor Relationship Specialty Start Date End Date Pasquale Girard MD [address] [facility] [address] [place] [address] PCP - General 5/14/21
--- OUTSIDE RECORDS SUMMARY | 2025-05-12 09:03 | XMS_ITS | Patient Health Record ---
Author Organization [facility] Address [address] [facility] 36 [facility] [address] [place] [id number] Care Team Providers Care Photographic Equipment Technician Name Role Phone aPsquale Girard Primary Care Provider Perera Lana Unavailable [phone] Allergies No Known Allergies Results Component Value Reference Range Notes P-Culture, Wound Aerobic w/G jojo Stain Reviewed date:10/01/2024 12:10:32 PM Interpretation: Performing Lab: Notes/Report: Test performed by [employer] [address] , [address], [place] [address] Jong Schneider MD, Restaurant Hourly Manager CLIA: [id number] Specimen Source Leg - Lower Right Leg Gram Stain See Below Moderate Polymorphonuclear leukocytes Moderate Gram Negative Rods Culture, Wound Aerobic w/Gram Stain See Below Preliminary Report : Pending, reinulisseste Klebsiella variicola Moderate Growth Klebsiella variicola Sensitivity Panel See Below Organism K.variicola Antibiotic INTERP Amikacin S Ampicillin R Aztreonam S Cefepime S Cefoxitin S Ceftazidime S Ceftriaxone S Cefuroxime S Ciprofloxacin S Ertapenem S Gentamicin S Imipenem S Levofloxacin S Meropenem S Piperacillin/Tazo S Tetracycline S Tobramycin S Trimeth/Sulfa S S=SUSCEPTIBLE I=INTERMEDIATE R=RESISTANT H-CMP Reviewed date:06/15/2024 11:15:50 AM Interpretation:06/15 OV Performing [...] 0.3 0.0-0.4 K/mm3 BA# 0.0 0-0.2 K/mm3 CT scan : Abdomen and pelvis without contrast Reviewed date:06/15/2024 11:15:50 AM Interpretation:06/15 OV Performing Lab: Notes/Report: 06/15 OV MRI : Brain with and w/o con trast Reviewed date:07/01/2024 10:55:32 AM Interpretation: Performing Lab: Notes/Report: MRI : Brain with and without contrast Reviewed date:08/16/2024 11:43:02 AM Interpretation: see duplicate order Performing Lab: Notes/Report: see duplicate order H-Magnesium Reviewed date:07/01/2024 10:55:33 AM Interpretation:1.5 Performing Lab: Notes/Report: MG 1.5 1.6-2.3 mg/dl H-PHOS Reviewed date:07/01/2024 10:55:33 AM Interpretation:Normal Performing Lab: Notes/Report: PHOS 3.8 2.5-4.5 mg/dl H-CMP Reviewed date:07/01/2024 10:55:33 AM Interpretation:cl 115, [...] AGRATIO 1.1 1.1-1.8 ALP 76 38-126 U/L H-Ammonia Reviewed date:07/01/2024 10:55:33 AM Interpretation:36 Performing Lab: Notes/Report: AMM 36 9-30 umol/L H-CBC Reviewed date:07/01/2024 10:55:32 AM Interpretation:wbc 4.7, [...] 0.3 0.0-0.4 K/mm3 BA# 0.0 0-0.2 K/mm3 RPR Reviewed date:07/01/2024 10:54:38 AM Interpretation: Performing Lab: Notes/Report: H-CMP Reviewed date:05/24/2024 11:11:43 AM Interpretation:Na 134, [...] 0.2 0.0-0.4 K/mm3 BA# 0.0 0-0.2 K/mm3 H-CMP Reviewed date:06/22/2024 01:55:08 PM Interpretation: Performing [...] AGRATIO 1.1 1.1-1.8 ALP 72 38-126 U/L H-UA Reviewed date:06/22/2024 01:55:08 PM Interpretation: Performing [...] Occasional 0-5 #/hpf UBACT None NONE /lpf H-CBC Reviewed date:06/22/2024 01:55:08 PM Interpretation: Performing [...] 0.2 0.0-0.4 K/mm3 BA# 0.0 0-0.2 K/mm3 RPRT Reviewed date:07/01/2024 10:55:32 AM Interpretation: Performing [...] utilized, such as Treponema pallidum (Syphilis) Screening [place] (197357) or Rapid Plasma Reagin (RPR) Test With Reflex to Quantitative RPR and Confirmatory Treponema pallidum Antibodies (714652). Performed at: [address] [id number] Marketing And Public Relations Manager: Nuno Otto PhD, Phone: [phone] Hemoccult- IFOBT (in house) Reviewed date:06/20/2024 10:12:57 AM Interpretation:Positive Performing Lab: Notes/Report: Positive results positive FOBT - Inhouse Reviewed date:06/22/2024 11:54:00 AM Interpretation: Performing Lab: Notes/Report: Medications Medication SIG (Take, Route, Frequency, Duration) Notes Start Date End Date Status Spironolactone 50 MG TAKE 1 TABLET BY [facility] TWICE A DAY; Duration: 90 Active Bisoprolol Fumarate 10 MG 1 tablet Orall y Once a day; Duration: 30 day(s) Active Xarelto 15 MG 1 tablet with food O rally Once a day; Duration: 30 day(s) Active Immunizations Vaccine Route Administration Date Status Comme nts xFluzone (6mos and older)-trivalent Unknown 08/19/2021 Administered Shingrix Unknown 08/16/2018 Administered Hepatitis A (adult) Unknown 10/14/2018 Administered Hepatitis A (adult) IM Intramuscular 04/25/2019 Administer ed Fluzone Quad (6months&older) Unknown 06/05/2017 Administered Fluzone Quad (6months&older) Unknown 08/16/2018 Administered Fluzone Quad (6months&older) IM Intramuscular 09/05/2019 Administered Fluzone PF Quad (6-35 months) Unknown 06/05/2017 Administered Fluzone PF Quad (6-35 months) Unknown 09/28/2023 Administered flucelvax IM Intramuscular 09/08/2013 Administered COVID 19 Moderna Unknown 12/27/2020 Administered COVID 19 Moderna Unknown 01/24/2021 Administered Problems Problem Type SNOMED Code ICD Code Onset Dates Problem Status W/U Status Risk Notes Problem Nondependent alcohol abuse (363919894) EtOH [Ethanol] abuse NOS (305.00) Active confirmed Problem Abnormal liver function (58522747) Abnormal liver function study (794.8) Active confirmed Problem Essential hypertension (24475459) Essential (primary) hypertension (I10) Active confirmed Problem Hypertension (61318404) HTN (hypertension) (I10) Active confirmed Problem Vitamin D deficiency (72378563) Vitamin D deficiency (E55.9) Active confirmed Problem Hypertriglyceridemia (721481753) Hypertriglyceridemia (E78.1) Active confirmed Problem Abnormal results of liver function studies (133030441) Abnormal results of liver function studies (R94.5) Active confirmed Problem Mixed hyperlipidemia (755298239) Mixed hyperlipidemia (E78.2) Active confirmed Problem Mitral valve disorde r (91690298) Nonrheumatic mitral (valve) insufficiency (I34.0) Active confirmed Problem Ventricular prematur e depolarization (169987051) Ventricular premature depolarization (I49.3) Active confirmed Problem Gout (10998988) Gout, unspecifie d (M10.9) Active confirmed Problem Male erectile disorder (990838447) Male erectile disorder (N52.9) Active confirmed Problem Chronic pain (18142125) Other chronic pain (G89.29) Active confirmed Problem Atherosclerosis of coronary artery without angina pectoris (524497517279684) Atherosclerosis of [place] coronary artery of [place] heart without angina pectoris (I25.10) Active confirmed Problem Thrombocytopenia (383301755) Thrombocytopenia (D69.6) Active confirmed Problem Atherosclerotic hear t disease of [place] coronary artery without angina pectoris (714973126357151) Coronary artery disease involving [place] coronary artery of [place] heart without angina pectoris (I25.10) Active confirmed Problem Gastroesophageal reflux disease (097727155) Gastroesophageal reflux disease, esophagitis presence not specified (K21.9) Active confirmed Problem Leukocytosis (255084630) Leukocytosis, unspecified type (D72.829) Active confirmed Problem Anemia (627912071) Anemia, unspe cified type (D64.9) Active confirmed Problem Alcoholism (5606480) Alcoholism (F10.20) Active confirmed Problem Localized, primary osteoarthritis of the shoulder region (929906380) 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) Active confirmed Problem Sciatica (70458801) Right-sided low back pain with right-sided sciatica, unspecified chronicity (M54.41) Active confirmed Problem Gastrointestinal hemorrhage (21106779) Gastrointestinal hemorrhage, unspecified gastrointestinal hemorrhage type (K92.2) Active confirmed Problem Thyromegaly (7942063) Thyromegaly (E01.0) Active confirmed Problem Acute on chronic diastolic heart failure (982153540) Acute on chronic diastolic congestive heart failure (I50.33) Active confirmed Problem Arthritis of left knee (3907022704480821) Arthritis of left knee (M17.12) Active confirmed Problem Type II diabetes mellitus without complication (126670978) Type 2 diabetes mellitus without complication, unspecified whether skilled nursing insulin use (E11.9) Active confirmed Problem Diastolic dysfunctio n (2063058) Diastolic dysfunction (I51.89) Active confirmed Problem Bradyarrhythmia (144199961) Bradyarrhythmia (I49.8) Active confirmed Problem Cardiac arrhythmia (326350551) Bigeminy (I49.8) Active confirmed Problem Chronic idiopathic thrombocytopenic purpura (disorder) (37255188) Idiopathic thrombocytopenic purpura (ITP) (D69.3) Active confirmed Vital Signs Heart Rate 54 /min 11/17/2024 Blood pressure diastolic 74 mm Hg 11/17/2024 Height 74 in 11/17/2024 Blood pressure systolic 118 mm Hg 11/17/2024 Weight 227.8 lbs 11/17/2024 BMI 29.24 kg/m2 11/17/2024 Encounters Encounter Location Date Provider Diagnosis [facility] [address] [facility] [address] [place], [place] [id number] 06/09/2024 Pasquale Iliff Umbilical hernia wit hout obstruction and without gangrene K42.9 [facility] [address] [place], [place] [id number] 06/15/2024 Pasquale Iliff Anemia, unspecified type D64.9 and Heartburn R12 [facility] [address] [place], [place] [id number] 06/20/2024 Pasquale Iliff [facility] [address] [place], [place] [id number] 06/22/2024 Pasquale Iliff Confusion R41.0 ; Anemia, unspecified type D64.9 ; Peripheral edema R60.0 and Heme positive stool R19.5 [facility] [address] [place], [place] [id number] 07/08/2024 Pasquale Iliff Intermittent confusi on R41.0 and Dizziness R42 [facility] [address] [place], [place] [id number] 09/27/2024 Lana Perera Cellulitis of right leg L03.115 and Wound of right lower extremity, subsequent encounter S81.801D [facility] [address] [place], [place] [id number] 10/04/2024 Lana Perera Cellulitis of right leg L03.115 and Wound of right lower extremity, subsequent encounter S81.801D [facility] [address] [place], [place] [id number] 11/17/2024 Paqsuale Iliff Pre-op exam Z01.818 ; Arthritis of left knee M17.12 ; Anemia, unspecified type D64.9 ; Thyromegaly E01.0 ; Coronary artery disease involving [place] coronary artery of [place] heart without angina pectoris I25.10 ; Type 2 diabetes mellitus without complication, unspecified whether intermediate accountant insulin use E11.9 ; Mixed hyperlipidemia E78.2 ; HTN (hypertension) I10 ; Gastroesophageal reflux disease, esophagitis presence not specified K21.9 ; Gout, unspecified M10.9 and Open wound of right lower extremity, subsequent encounter S81.801D [facility] [address] [place], [place] [id number] 05/23/2024 Pasquale Iliff Thrombocytopenia D69 .6 ; Mixed hyperlipidemia E78.2 and Peripheral edema R60.0 [facility] [address] [place], [place] [id number] 05/24/2024 Pasquale Iliff [facility] [address] [place], [place] [id number] 06/13/2024 Pasquale Iliff Anemia, unspecified type D64.9 and Peripheral edema R60.0 [facility] [address] [place], [place] [id number] 06/20/2024 Pasquale Iliff [facility] [address] [place], [place] [id number] 06/22/2024 Pasquale Iliff [facility] [address] [place], [place] [id number] 06/29/2024 Pasquale Iliff Confusion R41.0 ; Anemia, unspecified type D64.9 and Cramp in limb R25.2 [facility] [address] [place], [place] [id number] 07/01/2024 Pasquale Iliff [facility] [address] [place], [place] [id number] 07/18/2024 Pasquale Iliff [facility] [address] [place], [place] [id number] 08/18/2024 Pasquale Iliff [facility] [address] [facility] [address] [place] [id number] 09/30/2024 Lana Perera Wound of right lower extremity, subsequent encounter S81.801D [facility] [address] [facility] [address] [place] [id number] 04/07/2025 Pasquale Shaji Assessments Encounter Date Diagnosis (ICD Code) Assessment Notes Treatment Notes Treatment Clinical Notes Section Notes 05/23/2024 Thrombocytopenia (ICD-10 - D69.6) 06/09/2024 Umbilical hernia without obstruction and without gangrene (ICD-10 - K42.9) 06/13/2024 Anemia, unspecified type (ICD-10 - D64.9) 06/13/2024 Peripheral edema (ICD-10 - R60.0) 06/15/2024 Heartburn (ICD-10 - R12) 06/15/2024 Anemia, unspecified type (ICD-10 - D64.9) 06/22/2024 Confusion (ICD-10 - R41.0) Sympotms have resolved, unclear etiology 06/22/2024 Anemia, unspecified type (ICD-10 - D64.9) Patient to follow up with Dr. Bermudez tomorrow 06/29/2024 Confusion (ICD-10 - R41.0) 06/29/2024 Anemia, unspecified type (ICD-10 - D64.9) [...] edges of the wound ; keep covered 11/17/2024 Pre-op exam (ICD-10 - Z01.818) PATIENT IS CLEARED FOR SURGERY, BUT HE IS AT LEAST AT MODERATE RISK FOR PERIOPERATIVE AND POSTOPERATIVE COMPLICATIONS. 11/17/2024 Arthritis of left knee (ICD-10 - M17.12) 11/17/2024 Anemia, unspecified type (ICD-10 - D64.9) 06/29/2024 Cramp in limb (ICD-10 - R25.2) 06/22/2024 Peripheral edema (ICD-10 - R60.0) 05/23/2024 Mixed hyperlipidemia (ICD-10 - E78.2) 05/23/2024 Peripheral edema (ICD-10 - R60.0) 06/22/2024 Heme positive stool (ICD-10 - R19.5) 11/17/2024 Thyromegaly (ICD-10 - E01.0) 11/17/2024 Coronary artery disease involving [place] coronary artery of [place] heart without angina pectoris (ICD-10 - I25.10) 11/17/2024 Type 2 diabetes mellitus without complication, unspecified whether intermediate accountant insulin use (ICD-10 - E11.9) 11/17/2024 Mixed [...] Date MEDICARE PART B [address] [address] [place] [address] [phone] [id number] Solo Burch Self - patient is the insured [facility] [employer] [facility] [address] [place] [address] [id number] Solo Burch Self - patient is the insured Medications Administered Medication Instructions Date of Administration Dosage Notes Depo- Medrol 40 mg/ml 09/01/2016 1 mL Medical (General) History Medical History History ICD Code Coronary Artery Disease, LT Heart Cath, [facility] 06/2019 Hypertension A Fib Hyperlipidemia Gout ETOH abuse Abnormal LFT's Bilateral Inguinal Hernia Diastolic Dysfunction, Echo, 09/2019 Osteoarthritis anemia/GI bleed April 2023 Thrombocytopenia, s/p Heme/Onc evaluatio n at [facility] cirrhosis, s/p GI evaluation with Dr. Alivia batres DVT, Right leg, 2023 Immune Thrombocytopenia Purpura Surgical History Surgery Date(Month/Year) LT Shoulder Replacement 2005 Bilateral inguinal hernia repair 013 Percutaneous Coronary Intervention, 3 St ents Placed 06/2019 Rotator Cuff Tear Repair 02/18/2022 umbilical hernia repair - At 08/2023 Hospitalization History Reason Date(Month/Year)
--- OUTSIDE RECORDS SUMMARY | 2025-05-12 09:03 | XMS_ITS | Clinical Summary ---
Author Organization [facility] L[facility] OD Address [address] [facility] [place] [id number] Phone Care Team Providers Care Clinical Psychologist Licensed Name Role Phone Unavailable Primary Care Provider [...]
--- OUTSIDE RECORDS SUMMARY | 2025-05-12 09:03 | XMS_ITS | Data Portability ---
Author Organization [facility] [place] [facility] D[place] ADMIN Address [address] [place] [id number] Care Team Providers Care Car Rental Service Attendant Name Role Phone [facility] Primary Care Provider [phone] Assessment Encounter Date Assessment Date Assessment LastModified [...] needed. 4) Thrombocytopenia: Profound. He sees a auditing coder in [place]. Previously improved on steroids. He stopped steroids 2 weeks ago. Obtain CBC now. 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 Following with hematology. [email or web address] Not available 06/25/2023 10:56:17 07/23/2023 07/23/2023 63-year-old [...] bloating. 4) Thrombocytopenia: Profound. He sees a auditing coder in [place]. Previously improved on steroids. This improved with steroids previously, worsenend when they were stopped. 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 Following with hematology. 6) GERD: Change Nexium to Pantoprazole. [email or web address] Not available 07/23/2023 18:04:22 08/11/2024 08/11/2024 64-year-old [...] HCC. Pt reports recent US abd at [facility]. WIll obtain. Not available 08/11/2024 12:23:52 [...] HCC. Pt reports recent US abd at [facility]. WIll obtain. Not available 10/13/2024 10:41:40 [...] - Labs ordered through with the patient's auditing coder, Dr. Bermudez. 3) Constipation: Miralax as needed. [...] for HCC. Patient to perform ultrasound at [facility]. Order given to patient today. Not available 02/09/2025 09:58:02 Plan of Treatment Reminders Order Date Submit Date Provider Last Modified By Organization Details Last Modified Time Details Appointments Establish ed Visit 15 min 2024 09:00A M Saeid Gilman MD Not available Not available Not available Lab CMP, serum or plasma 2024 025 CARODAVID [facility], [address], [address], [place], [address], 02/14/2025 10:44:25 CBC w/ auto diff 2024 025 CARO [facility], [address], [address], [place], [address], 02/14/2025 10:44:26 afp (alpha-fe toprotein ) tumor marker, serum or plasma 2024 025 CARODAVID [facility], [address], [address], [place], [address], 02/15/2025 14:25:49 PT/PTT, plasma 2024 025 CARO [facility], [address], [address], [place], [address], 02/14/2025 11:28:54 CMP, serum or plasma 2023 024 CARO [facility], [address], [address], [place], [address], 08/12/2024 10:04:33 afp (alpha-fe toprotein ) tumor marker, serum or plasma 2023 024 [email or web address] 4 [facility], [address], [address], [place], [address], 08/18/2024 09:03:53 PT/INR 2023 024 [email or web address] 4 [facility], [address], [address], [place], [address], 08/18/2024 09:03:53 CBC w/ auto diff 2023 024 CARO [facility], [address], [address], [place], [address], 08/12/2024 09:09:00 hepatitis A virus Ab, qualitati ve, immunoass ay, serum 2023 024 CARO [facility], [address], [address], [place], [address], 08/14/2024 19:21:40 hepatitis B surface Ab, qualitati ve, serum 2023 024 COFFEY [facility], [address], [address], [place], [address], 08/13/2024 12:51:57 CBC 2022 [email or web address] [place] [address] (Registration ), [address], [place], [address], 07/02/2023 08:11:07 CMP, serum or plasma 2022 [email or web address] [place] [address] (Registration ), [address], [place], [address], 07/02/2023 08:11:07 PT/INR 2022 [email or web address] [place] [address] (Registration ), [address], [place], [address], 07/02/2023 08:11:07 afp (alpha-fe toprotein ), serum 2022 [email or web address] [place] [address] (Registration ), [address] [place], [address], 07/02/2023 08:11:07 HUE (antinucl ear antibodie s) screen, serum [address] (Registration ), [address] [place], [address], 07/02/2023 08:11:07 igg, quantitat leigh, serum [address] (Registration ), [address] [place], [address], 07/02/2023 08:11:08 actin smooth muscle Ab, serum [address] (Registration ), [address] [place], [address], 07/02/2023 08:11:08 mitochond rial Ab, serum [address] (Registration ), [address] [place], [address], 07/02/2023 08:11:08 hemochrom atosis mutation (hfe), blood/tis leo [email or web address] [place] [address] (Registration ), [address] [place], [address], 07/02/2023 08:11:08 iron + TIBC + ferritin, serum [address] (Registration ), [address] [place], [address], 07/02/2023 08:11:08 alpha-1-a ntitrypsi n (aat), QN, serum 2022 [email or web address] [place] [address] (Registration ), [address], [place], [address], 07/02/2023 08:11:08 alpha-1-a ntitrypsi n (aat) phenotype , serum 2022 [email or web address] [place] [address] (Registration ), [address], [place], [address], 07/02/2023 08:11:09 hepatitis B surface Ab, quantitat leigh, serum [address] (Registration ), [address], [place], [address], 07/02/2023 08:11:09 hepatitis A Ab, total, serum [address] (Registration ), [address] [facility], [place], [address], 07/02/2023 08:11:09 hepatitis (A+B+C) panel, serum [address] (Registration ), [address] [facility], [place], [address], 07/02/2023 08:11:09 Referral None recorded. Procedures None recorded. Surgeries None recorded. Imaging US, liver 2024 025 [facility] (Scheduling), [address], [place], [address], 02/22/2025 11:08:42 US, liver 2022 023 [facility] (Scheduling), [address], [place], [address], 07/07/2023 10:31:32 Medication Orders Xifaxan 550 mg tablet 2023 025 [facility]armacy #[id number], [address] [place], [address], 02/09/2025 09:26:24 Dexilant 60 mg capsule, delayed release 2023 024 [facility]/Pharmacy #[id number], [address] [place], [address], 08/11/2024 11:25:44 simethico ne 125 mg capsule 2022 023 [email or web address] [facility] #[id number], [address] [place], [id number], 02/09/2025 09:26:02 pantopraz ole 40 mg tablet,de layed release 2022 023 Kiio 71 [facility] #[id number], [address] [address] [address], [place], [id number], 02/09/2025 09:22:38 Patient TargetsNo targets recorded. Patient InstructionsNo instructions recorded. Reason for Referral None Reported. Results Created Date Observation Date Name Description Value Unit Range Abnormal Flag Note LastModifiedBy Organization Detail LastModifiedTime 07/15/20 24 07/15/2024 BHAVANI PREP TISSU E bhavani prep tissue NEGATI VE negati ve Not Available [facility] ([facility]) [address], [place], [address], 07/15/2024 17:33:57 07/07/2007/07/2023 US, liver No observ ation record ed. [facility] [address], [place], [address], 08/28/2023 14:46:27 02/23/20 25 02/21/2025 US, liver No observ ation record ed. [facility] [address], [place], [address], 02/28/2025 11:44:25 Result Notes None recorded. Problems Name Problem SNOMED Code Status Onset Date Resolution Date Notes Provider Name and Address Organization Details Recorded Time Cirrhosis of liver Active [address], [place], [place], [address] [place] [address] , [place] - [facility] & [place] 3 09:35:44 Constipation 64941286 Active [address], [place] [address] , [place] - [facility] & [place] 3 10:54:34 Thrombocytope cris disorder 092989682 Active [address], [place] [address] , [place] - [facility] & [place] 3 10:54:44 Superior mesenteric vein thrombosis 010806650 Active [address], [place] [address] , [place] - [facility] & [place] 3 10:55:43 Gastroesophag eal reflux disease without esophagitis 776556458 Active [address], [place] [address] , [place] - [facility] & [place] 3 09:35:58 Abdominal bloating 389897168 Active [address], [place] [address] , [place] - [facility] & [place] 3 09:36:01 Problem Notes None recorded. Procedures Surgical History Date Name Laterality Status Provider Name and Address Organization Details Recorded Time total knee replacement completed Kraig Medeiros [place] - [place] [facility] & [place] 02/09/2025 09:27:31 total shoulder replacement completed Kraig [facility]ART - [facility] [place] & [place] 02/09/2025 09:27:47 operation on stomach completed Kraig EDMONDSON [facility] & [place] 02/09/2025 09:27:59 Imaging Results None recorded. Procedure [...] index (BMI) Body weight Heart rate Systolic And Diastolic Provider Name and Address Organization Details Last Updated DateTime 02/09/2025 187.96 cm 28.8 kg/m2 078493.4 9 g 73 /min 133/73 mm[Hg] Kraig Medeiros [facility] & [place] 5 09:28:08 Date Recorded Body height Body mass index (BMI) Body weight Body temperature Heart rate Oxygen saturation Oxygen saturation in Arterial blood by Pulse oximetry Heart rate Systolic And Diastolic Provider Name and Address Organization Details Last Updated DateTime 3 187.96 cm 29.8 kg/m2 220494. 51 g 97.5 [degF] 72 /min 96 % 96 % 69 /min 104/67 mm[Hg] Precious Faye [facility] & [place] 3 09:10:10 Date Recorded Body weight Body mass index (BMI) Body height Heart rate Body temperature Oxygen saturation Oxygen saturation in Arterial blood by Pulse oximetry Heart rate Systolic And Diastolic Provider Name and Address Organization Details Last Updated DateTime 4 919985. 2 g 29.7 kg/m2 187.96 cm 109 /min 98.1 [degF] 95 % 95 % 100 /min 164/76 mm[Hg] Precious HEART [facility] & [place] 4 10:29:44 Date Recorded Body height Body mass index (BMI) Body weight Body temperature Heart rate Systolic And Diastolic Provider Name and Address Organization Details Last Updated DateTime 4 187.96 cm 29.7 kg/m2 591037. 56 g 97.3 [degF] 75 /min 146/75 mm[Hg] Lisha Shell [facility] & [place] 4 09:10:59 Social History Question Answer Notes LastModified by [facility] Details LastModified Time Tobacco Smoking Status Never Smoker Precious Faye [facility], [facility] & [place] 06/25/2023 09:09:55 What Is Your Level Of Caffeine Consumption? Occasional Information not available 06/25/2023 Sex: Unknown Functional Status Question Answer Note LastModified by [employer] ion Details LastModified Time Do you use any illicit or recreational drugs? No [email or web address] Information not available 06/25/2023 Do you or have you ever used any other forms of tobacco or nicotine? No [email or web address] Information not available 06/25/2023 What is your level of alcohol consumption? None [email or web address] Information not available 06/25/2023 Mental Status None recorded. Family History Relationship [...] SNOMED-CT Code Diagnosis ICD10 Code Diagnosis Note [id number] Saeid Gilman MD [facility] [address] [address] 06/01/2023 08:33:54 06/01/2023 13:05:24 [id number] Pablito Mccarthy PA-C [facility] [address] [address] 06/25/2023 08:46:19 06/25/2023 09:47:01 Cirrhosis of liver 71900721 K74.60 Constipation 82286220 K5 9.00 Thrombocyt openic disorder 378458609 D69.6 Superior m esenteric vein thrombosis 085393670 K55.059 History of gastrointestinal bleed 366775637 Z87.19 158363 Pablito Mccarthy PA-C [facility] [address] [address] 07/23/2023 09:01:42 07/23/2023 10:12:53 Cirrhosis of liver 41484731 K74.60 Constipation 39766233 K5 9.00 Thrombocyt openic disorder 771202897 D69.6 Superior m esenteric vein thrombosis 853969997 K55.059 History of gastrointestinal bleed 034569762 Z87.19 Gastroesop hageal reflux disease without esophagitis 840925702 K21.9 Abdominal bloating 80499 9008 R14.0 [id number] Saeid Gilman MD [facility] [address] [address] 08/11/2024 10:19:21 08/11/2024 11:42:38 Cirrhosis of liver 81794241 K74.60 Constipation 01143249 K5 9.00 Thrombocyt openic disorder 494490967 D69.6 Superior m esenteric vein thrombosis 812604398 K55.059 History of gastrointestinal bleed 586667170 Z87.19 Gastroesop hageal reflux disease without esophagitis 341290073 K21.9 Abdominal bloating 61943 9008 R14.0 Hepatic encephalopathy 32125108 K76.82 Ascites 721219403 R18.8 [id number] Saeid Gilman MD [facility] [address] [address] 10/13/2024 08:57:09 10/13/2024 09:43:50 Cirrhosis of liver 12487538 K74.60 Constipation 04717288 K5 9.00 Thrombocyt openic disorder 056701116 D69.6 Superior m esenteric vein thrombosis 883824617 K55.059 History of gastrointestinal bleed 849947372 Z87.19 Gastroesop hageal reflux disease without esophagitis 944860820 K21.9 Abdominal bloating 09325 9008 R14.0 Hepatic encephalopathy 34899114 K76.82 Ascites 362008914 R18.8 [id number] Saeid Gilman MD [facility] [address] [place] [address] 02/09/2025 09:08:06 02/09/2025 09:52:00 Cirrhosis of liver 43930988 K74.60 Constipation 84871289 K5 9.00 Thrombocyt openic disorder 161493217 D69.6 Superior m esenteric vein thrombosis 365932916 K55.059 History of gastrointestinal bleed 398446867 Z87.19 Gastroesop hageal reflux disease without esophagitis 012553723 K21.9 Abdominal bloating 82770 9008 R14.0 Hepatic encephalopathy 53398653 K76.82 Ascites 377209247 R18.8 Alcoholic cirrhosis 4200 63829 K70.31 Health Concerns Section Related Observation LastModified by Organization Detai ls LastModified Time None Recorded Concern Status LastModified by Organization Details LastModified Time None Recorded Advance Directives Directive None Recorded Payers Insurance Date Sequence Insurance Name Policy Number Policy Hidalgo Covered Member ID Hidalgo Member ID Guarantor Name 10/13/2024 2 [facility] [employer] [place] (O) Halie Banda [id number] [address] 08/12/2024 1 [place] Halie Banda [id number] [place] 02/06/2025 1 [place] Solo Ambrose [id number] Solo [place]rose 02/06/2025 2 [place] [id number] Solo Ambrose [id number] Solo [place] Notes Date Note Type [...] as 16. He was seeing hematology in [place] and was placed on steroids which [...] improved with bowel movements. Pablito Mccarthy PA-C [address] , [place], [address], [place] - [place] & [place] 06/25/2023 10:56:47 07/23/2023 text/html PREVIOUS ( 3): [...] as 16. He was seeing hemat[place] and was placed on steroids which [...] further disposition of care. Pablito Mccarthy PA-C [address] [facility], [place], [address], [place] - [place] - [place] & [place] 07/23/2023 18:04:40 08/11/2024 text/html PREVIOUS ( 3): [...] as 16. He was seeing hematology [place] and was [place] on steroids which [...] Sleep cycle is altered. Saeid Gilman MD [address], [place], [address], [place] 08/11/2024 12:24:41 10/13/2024 text/html PREVIOUS ( 3): [...] as 16. He was [place] and was [place] on steroids which [...] to profound diarrhea. He otherwise feels well. aSeid Gilman MD [address], [place], [address], [place] 10/13/2024 10:41:59 02/09/2025 text/html PREVIOUS ( 3): [...] as 16. He was seeing hematology [place] and was placed on steroids which [...] increase in abdominal girth. Saeid Gilman MD [address], [place], [address], [facility] - [place] - [place] & [place] 02/09/2025 10:06:18
--- OUTSIDE RECORDS SUMMARY | 2025-05-12 09:03 | XMS_ITS | Encounter Summary ---
Author Organization Healthcare Address [address] [place] [address] Care Team Providers Care Ships Equipment Engineer Name Role Phone Pasquale Girard MD Primary Care Provider [phone] Reason for Referral * Consultation (Routine) - Authorized Specialty Diagnoses / Procedures Referred By Haritha garcia Referred To Contact Orthopaedic Surgery Diagnoses Osteoarthritis of left knee, unspecified osteoarthritis type Wilner Ortiz DO [address] [place] [address] Phone: tel: fax: Jimbo Grover MD [address] [address] Phone: tel: fax: Referral ID Status Reason Start Date Expiration Date V isits Requested Visits Authorized [id number] Authorized 07/22/2024 01/21/2026 1 1 Encounter Details Date Type Department Care Team (Latest Contact Info) Description 07/22/2024 Community [facility] [address] [place] [address] Wilner Ortiz DO [address] [place] [id number] Osteoarthritis of left knee, unspecified osteoarthritis type [...] Primary documented in this encounter Care Teams Ships Equipment Engineer Relationship Specialty Start Date End Date Pasquale Girard MD [address] [place] [address] PCP - General 03/15/21 documented as of this encounter
[2025-05-12 09:25] VITALS: BP 135/83; PULSE 68; RESP 18; O2SAT 100
[2025-05-12] MEDS: IRON SUCROSE COMPLEX 200 MG in 0.9 % SODIUM CHLORIDE 100 ML 220 MG IV (09:25)
[2025-05-12 10:07] VITALS: BP 145/70; PULSE 69; RESP 18; O2SAT 100
== END 2025-05-12 10:07 | disposition home or self-care (01) ==
LOC: INF 09:00
PROVIDERS: PCP Family Medicine; Visit Provider Internal Medicine Medical Oncology
DX: D64.9 Anemia, unspecified (principal); D69.6 Thrombocytopenia, unspecified; D69.3 Immune thrombocytopenic purpura
CPT/HCPCS: 96365; J1756

== ENCOUNTER 2025-05-15 08:28 | Outpatient (CLI) | payer MEDICARE, BC, SELFPAY ==
--- OUTSIDE RECORDS SUMMARY | 2024-09-27 06:45 | XMS_ITS ---
Author Organization [facility] Address 1210 [facility] [address] [place] [id number] Care Team Providers Care Fulfillment Mail Clerk Name Role Phone Pasquale Girard Primary Care Provider [phone] Perera Lana Unavailable [phone] Allergies No Known Allergies Results Component Value Reference Range Notes P-Culture, Wound Aerobic w/G jojo Stain Reviewed date:10/01/2024 12:10:32 PM Interpretation: Performing Lab: Notes/Report: Test performed by [employer] [address] , [address], [place] [address] Jong Schneider MD, Longshore Equipment Operator CLIA: [id number] Specimen Source Leg - Lower Right Leg [...] day(s) Active Santyl 250 UNIT/GM 1 application Chlorine Cell Tender ally Once a day 05/04/2024 Active Spironolactone [...] 09/27/2024 Active Mupirocin 2 % 1 application Chlorine Cell Tender ally qd; Duration: 30 days 09/27/2024 Active Vital Signs Blood pressure systolic 130 mm Hg 09/27/20 24 Blood pressure diastolic 74 mm Hg 024 Heart Rate 87 /min 09/27/2024 Height 74 in 09/27/2024 Weight 224.7 lbs 09/27/2024 BMI 28.85 kg/m2 09/27/2024 Encounters Encounter Location Date Provider Diagnosis [facility] [address] [facility] [address] [place] [phone] 09/27/2024 Lana Perera Cellulitis of right leg [...] day(s) 09/27/2024 Mupirocin 2 % 1 application Chlorine Cell Tender ally qd; Duration: 30 days 09/27/2024 Treatment Notes Assessment Notes Cellulitis of right leg elevate the leg as much as possible Wound of right lower extremi ty, subsequent encounter keep wound dry with showering; apply mupirocin around edges of the wound ; keep covered Next Appt Details Follow Up: 1 Week, Reason: Progress Notes * Solo AMBROSEDOB:[birth year] (65 yo M)Acc No.[id number]:09/27/2024 Progress Notes Patient: Solo HERNANDEZ Provider: CHARLES Villegas :1960 A ge:64 Y S ex:Male Date:09/27/2024 Address:[address] [place] [address] , [facility] y , [id number] Pcp:Pasquale Girard Subjective: * Chief Complaints: * 1 . Leg wound possible infection. * HPI: D ermatology: 64 year old male presents with c/o ulcer. c/o redness.? c/o Wound P t complains of lower rt leg wound. Pt had been going to [facility] wound clinic but stopped because wound [...] C oronary Artery Disease, LT Heart Cath, [facility] 06/2019, Hypertension, A Fib, Hyperlipidemia, Gout, ETOH abuse, Abnormal LFT's, Bilateral Inguinal Hernia, Diastolic Dysfunction, Echo, 09/2019, Osteoarthritis, anemia/GI bleed April 2023, Thrombocytopenia, s/p Heme/Onc evaluation at [facility], cirrhosis, s/p GI evaluation with Dr. [...] * Images: Billing Information: * Visit Code: 61820 Office Visit, Est Pt., Level 4. * Procedure Codes: G2211 Complex e/m visit add on. * Electronic signature of Viridiana Perera APRN on 05/15/2025 at 08:32 AM EDT Sign off status: Pending * Provider: CHARLES Villegas Date: 11/27/2023 Generated for Azeb gill/Hudson/Alisitting on: 0 05/15/2025 08:32 AM EDT History and Physical Notes * [...] leg wound. Pt had been going to [facility] wound clinic but stopped because wound [...]
--- OUTSIDE RECORDS SUMMARY | 2024-10-04 07:15 | XMS_ITS ---
Author Organization [facility] Address 1210 [facility] [address] [place] [phone] Care Team Providers Care Skiver Machine Operator Name Role Phone Pasquale Girard Primary Care Provider Lana Perera Unavailable [phone] Allergies No Known Allergies REASON FOR VISIT 1 week Medications Medication SIG (Take, Route, Frequency, Duration) Notes Start Date End Date Status Xarelto 15 MG 1 tablet with food O rally Once a day; Duration: 30 day(s) Active Silvadene 1 % 1 application Customer Services Manager ally Once a day; Duration: 30 days 10/04/2024 Active Spironolactone 50 MG 1 tablet Orally Two times a day; Duration: 30 days Active Bisoprolol Fumarate 10 MG 1 tablet Orall y Once a day; Duration: 30 day(s) Active Mupirocin 2 % 1 application Customer Services Manager ally qd; Duration: 30 days 09/27/2024 Active levoFLOXacin 500 MG 1 tablet Orally Once a day Active Vital Signs Blood pressure systolic 130 mm Hg 10/04/20 24 Blood pressure diastolic 80 mm Hg 024 Heart Rate 62 /min 10/04/2024 Height 74 in 10/04/2024 Weight 229.2 lbs 10/04/2024 BMI 29.42 kg/m2 10/04/2024 Encounters Encounter Location Date Provider Diagnosis [facility] 12[facility] [address] [place] [phone] 10/04/2024 Lana Perera Cellulitis of right leg [...] Date Notes Silvadene 1 % 1 application Customer Services Manager ally Once a day; Duration: 30 days [...] * Solo AMBROSEDOB:[birth year] (65 yo M)Acc No.[id number]:10/04/2024 Progress Notes Patient: Solo HERNANDEZ Provider: CHARLES Villegas :1960 A ge:64 Y S ex:Male Date:10/04/2024 Address:[address] [place] [address] , [facility] , [id number] Pcp:Pasquale Girard Subjective: * Chief Complaints: * [...] Heart Cath, [facility] 06/2019, Hypertension, A Fib, Hyperlipidemia, Gout, ETOH abuse, Abnormal LFT's, Bilateral Inguinal Hernia, Diastolic Dysfunction, Echo, 09/2019, Osteoarthritis, anemia/GI bleed April 2023, Thrombocytopenia, s/p Heme/Onc evaluation at [facility], cirrhosis, s/p GI evaluation with Dr. Gilman, [...] Temp:97.2, BP:130/80, HR:62, O2 Sat:100% on RA, Nurse:[facility], Ht: 74, BMI:29.42. * Examination: G eneral [...] * Images: Billing Information: * Visit Code: 10365 Office Visit, Est Pt., Level 3. * Procedure Codes: 28993 PULSE OX. G2211 Complex e/m visit add on. * Electronic signature of Viridiana Perera APRN on 05/15/2025 at 08:32 AM EDT Sign off status: Pending * Provider: CHARLES Villegas Date: 1 12/05/2023 Generated for Azeb gill/Hudson/Corrie on: 0 05/15/2025 08:32 AM EDT History [...]
--- OUTSIDE RECORDS SUMMARY | 2024-11-17 06:00 | XMS_ITS ---
Author Organization Jannie Address 1210 [facility] [address] [place] [phone] Care Team Providers Care Vehicle Painter Name Role Phone Pasquale Girard Primary Care Provider [phone] Allergies No Known Allergies REASON FOR [...] Encounter Location Date Provider Diagnosis [facility] 1210 [facility] [address] [place] [phone] 11/17/2024 Pasquale Girard Pre-op exam Z01.818 ; Arthritis of left knee M17.12 ; Anemia, unspecified type D64.9 ; Thyromegaly E01.0 ; Coronary artery disease involving [place] coronary artery of [place] heart without angina pectoris I25.10 ; Type 2 diabetes mellitus without complication, unspecified whether nursing home insulin use E11.9 ; Mixed hyperlipidemia E78.2 [...] - E01.0) 11/17/2024 Coronary artery disease involving [place] coronary artery of [place] heart without angina pectoris (ICD-10 - I25.10) 11/17/2024 Type 2 diabetes mellitus without complication, unspecified whether superintendent marine oil terminal insulin use (ICD-10 - E11.9) 11/17/2024 Mixed [...] * Solo AMBROSEDOB:[birth year] (65 yo M)Acc No.[id number]:11/17/2024 Physical Patient: Solo HERNANDEZ Provider: Sofia Girard M.D. :1960 A ge:64 Y S ex:Male Date:11/17/2024 Address:[address] [place] [address] , [facility] y , [id number] Subjective: * Chief Complaints: * 1 . [...] Artery Disease, LT Heart Cath, [facility] 06/2019, Hypertension, A Fib, Hyperlipidemia, Gout, ETOH abuse, Abnormal LFT's, Bilateral Inguinal Hernia, Diastolic Dysfunction, Echo, 09/2019, Osteoarthritis, anemia/GI bleed April 2023, Thrombocytopenia, s/p Heme/Onc evaluation at [facility], cirrhosis, s/p GI evaluation with Dr. [...] E01.0? 5. C oronary artery disease involving [place] coronary artery of [place] heart without angina pectoris - I25.10 6 . T ype 2 diabetes mellitus without complication, unspecified whether superintendent marine oil terminal insulin use - E11.9 7 . M [...] * Images: Billing Information: * Visit Code: 86776 Office Visit, Est Pt., Level 4. * Procedure Codes: G2211 Complex e/m visit add on. * Electronic signature of Abbey Girard MD on 05/15/2025 at 08:32 AM EDT Sign off status: Pending * Provider: Sofia Girard M.D. Date: 0 11/17/2024 Generated for Printi ng/Faxing/eTransmitting on: 0 05/15/2025 08:32 AM EDT History [...]
--- OUTSIDE RECORDS SUMMARY | 2025-05-15 08:32 | XMS_ITS | Patient Health Record ---
[facility] Address [address] [facility] [address] [facility] [address] [place] [id number] Care Team Providers Care Cloth Packer Name Role Phone Pasquale Girard Primary Care Provider Lana Perera Unavailable [phone] Allergies No Known Allergies Results Component Value Reference Range Notes H-CMP Reviewed date:06/22/2024 01:55:08 PM Interpretation: Performing [...] 0.2 0.0-0.4 K/mm3 BA# 0.0 0-0.2 K/mm3 MRI : Brain with and without contrast [...] AM Interpretation: Performing Lab: Notes/Report: H-CMP Reviewed date:06/15/2024 11:15:50 AM Interpretation:06/15 OV [...] 0.3 0.0-0.4 K/mm3 BA# 0.0 0-0.2 K/mm3 FOBT - Inhouse Reviewed date:06/22/2024 11:54:00 AM Interpretation: Performing Lab: Notes/Report: CT scan : Abdomen and pelvis without contrast Reviewed date:06/15/2024 11:15:50 AM Interpretation:06/15 OV Performing Lab: Notes/Report: 06/15 OV MRI : Brain with and w/o con trast Reviewed date:07/01/2024 10:55:32 AM Interpretation: Performing Lab: Notes/Report: RPRT Reviewed [...] utilized, such as Treponema pallidum (Syphilis) Screening Worth (267171) or Rapid Plasma Reagin (RPR) Test With Reflex to Quantitative RPR and Confirmatory Treponema pallidum Antibodies (027451). Performed at: [address] [id number] Referral Management Liaison: Nuno Otto PhD, Phone: [phone] [facility] Reviewed date:05/24/2024 11:11:43 AM Interpretation:Na 134, gluc [...] Interpretation: Performing Lab: Notes/Report: Test performed by [facility], [address] , [address], [place] [address] Jong Schneider MD, Facility Maintenance Helper CLIA: [id number] Specimen Source Leg - Lower Right Leg [...] Tobramycin S Trimeth/Sulfa S S=SUSCEPTIBLE I=INTERMEDIATE R=RESISTANT Hemoccult- IFOBT (in house) Reviewed date:06/20/2024 10:12:57 AM Interpretation:Positive Performing Lab: Notes/Report: Positive results positive Medications Medication SIG (Take, Route, Frequency, Duration) Notes Start Date End Date Status Spironolactone 50 MG TAKE 1 TABLET BY [facility] TWICE A DAY; Duration: 90 Active Bisoprolol [...] Status Risk Notes Problem Nondependent alcohol abuse (435311500) EtOH [Ethanol] abuse NOS (305.00) Active confirmed Problem Abnormal liver function (50322316) Abnormal liver function study (794.8) Active confirmed Problem Essential hypertension (48410661) Essential (primary) hypertension (I10) Active confirmed Problem Hypertension (35933672) HTN (hypertension) (I10) Active confirmed Problem Vitamin D deficiency (94874703) Vitamin D deficiency (E55.9) Active confirmed Problem Hypertriglyceridemia (096223395) Hypertriglyceridemia (E78.1) Active confirmed Problem Abnormal results of liver function studies (228905009) Abnormal results of liver function studies (R94.5) Active confirmed Problem Mixed hyperlipidemia (659736654) Mixed hyperlipidemia (E78.2) Active confirmed Problem Mitral valve disorde r (44981010) Nonrheumatic mitral (valve) insufficiency (I34.0) Active confirmed Problem Ventricular prematur e depolarization (023124887) Ventricular premature depolarization (I49.3) Active confirmed Problem Gout (13726404) Gout, unspecifie d (M10.9) Active confirmed Problem Male erectile disorder (223058334) Male erectile disorder (N52.9) Active confirmed Problem Chronic pain (96787171) Other chronic pain (G89.29) Active confirmed Problem Atherosclerosis of coronary artery without angina pectoris (805642015266986) Atherosclerosis of craig coronary artery of craig heart without angina pectoris (I25.10) Active confirmed Problem Thrombocytopenia (167779994) Thrombocytopenia (D69.6) Active confirmed Problem Atherosclerotic hear t disease of craig coronary artery without angina pectoris (099183596629886) Coronary artery disease involving craig coronary artery of craig heart without angina pectoris (I25.10) Active confirmed Problem Gastroesophageal reflux disease (350717398) Gastroesophageal reflux disease, esophagitis presence not specified (K21.9) Active confirmed Problem Leukocytosis (394570976) Leukocytosis, unspecified type (D72.829) Active confirmed Problem Anemia (269542060) Anemia, unspe cified type (D64.9) Active confirmed Problem Alcoholism (9628337) Alcoholism (F10.20) Active confirmed Problem Localized, primary osteoarthritis of the shoulder region (255718679) 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) Active confirmed Problem Sciatica (37998711) Right-sided low back pain with right-sided sciatica, unspecified chronicity (M54.41) Active confirmed Problem Gastrointestinal hemorrhage (96098568) Gastrointestinal hemorrhage, unspecified gastrointestinal hemorrhage type (K92.2) Active confirmed Problem Thyromegaly (5889929) Thyromegaly (E01.0) Active confirmed Problem Acute on chronic diastolic heart failure (968903367) Acute on chronic diastolic congestive heart failure (I50.33) Active confirmed Problem Arthritis of left knee (9836200040242942) Arthritis of left knee (M17.12) Active confirmed Problem Type II diabetes mellitus without complication (198619784) Type 2 diabetes mellitus without complication, unspecified whether correction insulin use (E11.9) Active confirmed Problem Diastolic dysfunctio n (7288243) Diastolic dysfunction (I51.89) Active confirmed Problem Bradyarrhythmia (096686478) Bradyarrhythmia (I49.8) Active confirmed Problem Cardiac arrhythmia (570214160) Bigeminy (I49.8) Active confirmed Problem Chronic idiopathic thrombocytopenic purpura (disorder) (44887725) Idiopathic thrombocytopenic purpura (ITP) (D69.3) Active confirmed Vital Signs Heart Rate 54 /min 11/17/2024 Blood pressure diastolic 74 mm Hg 11/17/2024 Height 74 in 11/17/2024 Blood pressure systolic 118 mm Hg 11/17/2024 Weight 227.8 lbs 11/17/2024 BMI 29.24 kg/m2 11/17/2024 Encounters Encounter Location Date Provider Diagnosis [facility] [address] [facility] [address] [place], [place] [id number] 06/09/2024 [place] Umbilical hernia wit hout obstruction and without gangrene K42.9 [facility] [address] [place], [place] [id number] 06/15/2024 Pas[place]ale [place] Anemia, unspecified type D64.9 and Heartburn R12 [facility] [address] [place], [place] [id number] 06/20/2024 [place] [facility] [address] [place], [place] [id number] 06/22/2024 Pasquale [place] Confusion R41.0 ; Anemia, unspecified type D64.9 ; Peripheral edema R60.0 and Heme positive stool R19.5 [facility] [address] [place], [place] [id number] 07/08/2024 Pasquale [place] Intermittent confusi on R41.0 and Dizziness R42 [facility] [address] [place], [place] [id number] 09/27/2024 Lana Perera Cellulitis of right leg L03.115 and Wound of right lower extremity, subsequent encounter S81.801D [facility] [address] [place], [place] [id number] 10/04/2024 Lana Perera Cellulitis of right leg L03.115 and Wound of right lower extremity, subsequent encounter S81.801D [facility] [address] [place], [place] [id number] 11/17/2024 Pasquale [place] Pre-op exam Z01.818 ; Arthritis of left knee M17.12 ; Anemia, unspecified type D64.9 ; Thyromegaly E01.0 ; Coronary artery disease involving craig coronary artery of craig heart without angina pectoris I25.10 ; Type 2 diabetes mellitus without complication, unspecified whether joint terminal attack controller insulin use E11.9 ; Mixed hyperlipidemia E78.2 ; HTN (hypertension) I10 ; Gastroesophageal reflux disease, esophagitis presence not specified K21.9 ; Gout, unspecified M10.9 and Open wound of right lower extremity, subsequent encounter S81.801D [facility] [address] [place], [place] [id number] 05/23/2024 Pasquale [place] Thrombocytopenia D69 .6 ; Mixed hyperlipidemia E78.2 and Peripheral edema R60.0 [facility] [address] [place], [place] [id number] 05/24/2024 [place] [facility] [address] [place] [id number] 06/13/2024 Pasquale [place] Anemia, unspecified type D64.9 and Peripheral edema R60.0 [facility] [address] [place] [id number] 06/20/2024 Pas[place] [facility] [address] [place] [id number] 06/22/2024 Pas[place] [facility] [address] [place], [place] [id number] 06/29/2024 Pasquale [place] Confusion R41.0 ; Anemia, unspecified type D64.9 and Cramp in limb R25.2 [facility] [address] [place] [id number] 07/01/2024 Pas[place] [facility] [address] [place] [id number] 07/18/2024 Pas[place] [facility] [address] [place] [id number] 08/18/2024 Pasqu[place] [facility] [address] [place] [id number] 09/30/2024 Lana Perera Wound of right lower extremity, subsequent encounter S81.801D [facility] [address] [facility] [address] [place] [id number] 04/07/2025 [place] Assessments Encounter Date Diagnosis (ICD Code) Assessment Notes Treatment Notes Treatment Clinical Notes Section Notes 06/09/2024 Umbilical hernia without obstruction and without [...] - E01.0) 11/17/2024 Coronary artery disease involving craig coronary artery of craig heart without angina pectoris (ICD-10 - I25.10) 11/17/2024 Type 2 diabetes mellitus without complication, unspecified whether joint terminal attack controller insulin use (ICD-10 - E11.9) 11/17/2024 Mixed [...] Date MEDICARE PART B [address] [address] [place] [id number] [phone] [id number] Solo Burch Self - patient is the insured [facility] [employer] [facility] [address] [place] [address] [id number] Solo Burch Self - patient is the insured Medications Administered Medication Instructions Date of Administration Dosage Notes Depo- Medrol 40 mg/ml 09/01/2016 1 mL Medical (General) History Medical History History ICD Code Coronary Artery Disease, LT Heart Cath, [facility] 06/2019 Hypertension A Fib Hyperlipidemia Gout ETOH abuse Abnormal LFT's Bilateral Inguinal Hernia Diastolic Dysfunction, Echo, 09/2019 Osteoarthritis anemia/GI bleed April 2023 Thrombocytopenia, s/p Heme/Onc evaluatio n at [facility] cirrhosis, s/p GI evaluation with Dr. Alivia batres DVT, Right leg, 2023 Immune Thrombocytopenia Purpura Surgical History Surgery Date(Month/Year) LT Shoulder Replacement 2005 Bilateral inguinal hernia repair 013 Percutaneous Coronary Intervention, 3 St ents Placed 06/2019 Rotator Cuff Tear Repair 02/18/2022 umbilical hernia repair - At 08/2023 Hospitalization History Reason Date(Month/Year)
--- OUTSIDE RECORDS SUMMARY | 2025-05-15 08:32 | XMS_ITS | Clinical Summary ---
Author Organization Healthcare Address [address] [place] [address] Care Team Providers Care Buttermaker Continuous Churn Name Role Phone Pasquale Girard MD Primary Care Provider [phone] Allergies No known active allergies Medications bisoprolol [...] Influenza, seasonal, injectable 08/19/2021 Moderna COVID-19 Vaccine (Travel Nurse) 12+ years ,12/27/2020 Social History Tobacco Use [...] - Risk 60-74 years 1-dose series) 2019 IBC-DHAIC-57 Vaccine (3 - season) 2024 01/24/2021, 12/27/2020 [...] ORDERABLES Final Resu lt [facility] [address] [place] [address] from Last 3 Months or Most Recently Relevant to Health Maintenance [place] [phone] Advance Directives * Full Code (Latest Code Status on File) Date Activated Date Inactivated Comments 08/01/2023 3:26 PM 08/06/2023 6:04 PM Question Answer Comments Patient has decision-making capacity? Yes Care Teams Buttermaker Continuous Churn Relationship Specialty Start Date End Date Pasquale Girard MD [address] [facility] [address] [place] [address] PCP - General 5/14/21
--- OUTSIDE RECORDS SUMMARY | 2025-05-15 08:32 | XMS_ITS | Clinical Summary ---
Author Organization [facility] Address [address] [facility] [place] [address] Phone Care Team Providers Care Dual Rate Dealer Name Role Phone Unavailable Primary Care Provider [...]
--- OUTSIDE RECORDS SUMMARY | 2025-05-15 08:33 | XMS_ITS | Data Portability ---
Author Organization [facility] Address [address] [place] [address] Assessment Encounter Date Assessment Date Assessment LastModified [...] Dr. Ortiz who is an orthopedic in [place]. Patient states that Dr. Ortiz said he was not a good candidate for surgery at this time due to his low platelet count. Dr. Ortiz has suggested that patient come to [facility] pain management for evaluation for genicular [...] and worsens his discomfort. Vernon number is [id number]. Vernon has been reviewed and is appropriate [...] Ortiz Orthopedic office prior to referral to [facility] pain management for genicular nerve blocks [...] Procedures sacroiliac joint injection (PROC) 2022 023 [email or web address] Not available 3 08:23:47 genicular nerve block (PROC) 2022 023 CARO Not available 4 05:01:07 Surgeries None recorded. Imaging None recorded. Medication Orders None recorded. Patient TargetsNo targets recorded. Patient Instructions Encounter Date Encounter Id Patient Instructions Last Modified By Organization Details Last Modified Time 09/07/2023 [id number] back pain: care instructions abux Not available [...] Organization Details Recorded Time Osteoarthritis of knee 372045755 Active 2022 Jac Ramos MD [address], [address], [place] [facility] 3 09:51:28 Degeneration of lumbar intervertebral disc 31815623 Active 2022 Jac Ramos MD [address], [address], [place] [facility] 3 09:51:29 Inflammation of sacroiliac joint 25710818 Active 2022 Jac Ramos MD [address], [address], [place] [facility] 3 09:51:30 Problem Notes None recorded. Procedures Surgical History Date Name Laterality Status Provider Name and Address Organization Details Recorded Time 3 Diagnostic SI Joint Injection Under Fluoroscopy completed Jac Ramos MD [address] [facility] [address], [place], [address], [place] [facility] 10/23/2023 01:16:06 3 Genicular Nerve Block completed Jac Ramos MD [address] [facility] [address], [place], [address], [place] [facility] 10/08/2023 09:47:45 [...] % 97 % 185.42 cm 30.6 kg/m2 806876. 43 g 76 /min 136/84 mm[Hg] TRENA BRANCH [place] [facility] 3 09:46:28 Date Recorded Body height Body mass index (BMI) Body weight Oxygen saturation Oxygen saturation in Arterial blood by Pulse oximetry Heart rate Systolic And Diastolic Provider Name and Address Organization Details Last Updated DateTime 3 185.42 cm 30.6 kg/m2 400947. 43 g 97 % 97 % 69 /min 138/78 mm[Hg] TRENA BRANCH [place] [facility] 3 08:39:30 Date Recorded Body height Body mass index (BMI) Body weight Oxygen saturation Oxygen saturation in Arterial blood by Pulse oximetry Heart rate Systolic And Diastolic Provider Name and Address Organization Details Last Updated DateTime 3 185.42 cm 30.6 kg/m2 933366. 43 g 97 % 97 % 76 /min 124/79 mm[Hg] TRENA BRANCH [place] [facility] 3 09:10:16 Social History Question Answer Notes LastModified by Certain Details LastModified Time Tobacco Smoking Status Never Smoker TRENA BRANCH null, [place] [facility] 09/04/2023 08:56:07 In The 14 Days Before Symptom Onset, Have You Had Close Contact With A Laboratory-confirm ed COVID-19 While That Case Was Ill? No Information n ot available 09/04/2023 In The 14 Days Before Symptom Onset, Have You Had Close Contact With A Person Who Is Under Investigation For COVID-19 While That Person Was Ill? No [email or web address] Information not available 09/04/2023 Have You Been To An Area Known To Be High Risk For COVID-19? No [email or web address] Information not available 09/04/2023 Sex: Unknown Functional Status Question Answer Note LastModified by Organizat ion Details LastModified Time Do you use any illicit or recreational drugs? No [email or web address] Information not available 09/04/2023 Do you or have you ever used any other forms of tobacco or nicotine? No [email or web address] Information not available 09/04/2023 What is your level of alcohol consumption? None [email or web address] Information not available 09/04/2023 Are you currently employed? Yes [email or web address] Information not available 09/04/2023 Mental Status None recorded. Family History Nothing [...] Thyroid Problems N Anemia N Heart Attack (HI) N Diabetes Y Heart Disease Y Hypertension Y Osteoporosis N Past Encounters Encounter ID Performer Location Encounter Start Date Encounter Closed Date Diagnosis/Indication Diagnosis SNOMED-CT Code Diagnosis ICD10 Code Diagnosis Note [id number] Jac Ramos MD [address] [place] [address] [place] [address] 3 09/07/2023 09:33:07 09/07/2023 10:28:51 Knee pain 34041181 M25.562 Osteoarthr itis of knee 044323491 M17.9 Inflammati on of sacroiliac joint 29841998 M46.1 [id number] Jac Ramos MD [address] [place] [address] [place] [address] 3 10/08/2023 08:30:42 10/08/2023 09:50:19 Osteoarthritis of knee 944055884 M17.9 Degenerati on of lumbar intervertebral disc 06647746 M51.36 Inflammati on of sacroiliac joint 54662957 M46.1 [id number] Jac Ramos MD [address] [place] [address] 3 10/22/2023 08:36:44 10/22/2023 10:19:22 Degeneration of lumbar intervertebral disc 85820459 M51.36 Osteoarthr itis of knee 600882602 M17.9 Health Concerns Section Related Observation LastModified by Organization Detai ls LastModified Time None Recorded Concern Status LastModified by Organization Details LastModified Time None Recorded Advance Directives Directive None Recorded Payers Insurance Date Sequence Insurance Name Policy Number Policy Hidaglo Covered Member ID Hidalgo Member ID Guarantor Name 10/19/2023 1 [place] [id number] Solo Ambrose [id number] Solo Ambrose Notes Date Note Type Note [...] Related:no Working:no Jac Ramos MD [address], [address], [place] [facility] 09/07/2023 11:21:56 [...] (Self Pay) Jac Ramos MD [address], [address], [facility] 10/08/2023 09:59:09 10/22/2023 text/html Back [...] Joint Inj Jac Ramos MD [address], [address], [place] [facility] 10/23/2023 01:17:37
--- OUTSIDE RECORDS SUMMARY | 2025-05-15 08:33 | XMS_ITS | Encounter Summary ---
Author Organization Healthcare Address [address] [place] [address] Care Team Providers Care Painter And Paperhanger Apprentice Name Role Phone Pasquale Girard MD Primary Care Provider [phone] Reason for Referral * Consultation (Routine) - Authorized Specialty Diagnoses / Procedures Referred By Haritha garcia Referred To Contact Orthopaedic Surgery Diagnoses Osteoarthritis of left knee, unspecified osteoarthritis type Wilner Ortiz DO [address] [place] [address] [place] [address] Phone: tel: fax: Jimbo Grover MD [address] [address] Phone: tel: fax: Referral ID Status Reason Start Date Expiration Date V isits Requested Visits Authorized [id number] Authorized 07/22/2024 01/21/2026 1 1 Encounter Details Date Type Department Care Team (Latest Contact Info) Description 07/22/2024 [facility] [address] [place] [address] Wilner Ortiz DO [address] [place] [id number] Osteoarthritis of left knee, unspecified osteoarthritis type [...] Primary documented in this encounter Care Teams Painter And Paperhanger Apprentice Relationship Specialty Start Date End Date Pasquale Girard MD [address] [place] [address] PCP - General 03/15/21 documented as of this encounter
[2025-05-15 08:49] VITALS: BP 132/70; PULSE 65; RESP 16; TEMP 37; O2SAT 99
[2025-05-15] MEDS: IRON SUCROSE COMPLEX 200 MG in 0.9 % SODIUM CHLORIDE 100 ML 220 MG IV (08:49)
[2025-05-15 09:25] VITALS: BP 125/68; PULSE 68; RESP 16; TEMP 37; O2SAT 99
== END 2025-05-15 09:28 | disposition home or self-care (01) ==
LOC: INF 08:29
PROVIDERS: PCP Family Medicine; Visit Provider Internal Medicine Medical Oncology
DX: D64.9 Anemia, unspecified (principal); D69.6 Thrombocytopenia, unspecified; D69.3 Immune thrombocytopenic purpura
CPT/HCPCS: 96365; J1756

== ENCOUNTER 2025-05-17 08:33 | Outpatient (CLI) | payer MEDICARE, BC, SELFPAY ==
--- OUTSIDE RECORDS SUMMARY | 2024-09-27 06:45 | XMS_ITS ---
Author [facility] Address 1210 [facility] [address] [place] [phone] Care Team Providers Care Division Sergeant Name Role Phone Pasquale Girard Primary Care Provider Perera Lana Unavailable [phone] Allergies No Known Allergies Results Component Value Reference Range Notes P-Culture, Wound Aerobic w/G jojo Stain Reviewed date:10/01/2024 12:10:32 PM Interpretation: Performing Lab: Notes/Report: Test performed by [employer] [address] , [address], [place] [address] Jong Schneider MD, Electrician Elevator Maintenance CLIA: [id number] Specimen Source Leg - Lower Right Leg [...] day(s) Active Santyl 250 UNIT/GM 1 application Photoradio Operator ally Once a day 05/04/2024 Active Spironolactone [...] 09/27/2024 Active Mupirocin 2 % 1 application Photoradio Operator ally qd; Duration: 30 days 09/27/2024 Active Vital Signs Blood pressure systolic 130 mm Hg 09/27/20 24 Blood pressure diastolic 74 mm Hg 024 Heart Rate 87 /min 09/27/2024 Height 74 in 09/27/2024 Weight 224.7 lbs 09/27/2024 BMI 28.85 kg/m2 09/27/2024 Encounters Encounter Location Date Provider Diagnosis [facility] [address] [facility] [address] [place] [phone] 09/27/2024 Lana Perera Cellulitis of right leg [...] day(s) 09/27/2024 Mupirocin 2 % 1 application Photoradio Operator ally qd; Duration: 30 days 09/27/2024 Treatment Notes Assessment Notes Cellulitis of right leg elevate the leg as much as possible Wound of right lower extremi ty, subsequent encounter keep wound dry with showering; apply mupirocin around edges of the wound ; keep covered Next Appt Details Follow Up: 1 Week, Reason: Progress Notes * Solo AMBROSEDOB:[birth year] (65 yo M)Acc No.[id number]:09/27/2024 Progress Notes Patient: Solo HERNANDEZ Provider: CHARLES Villegas :1960 A ge:64 Y S ex:Male Date:09/27/2024 Address:[address] [place] [address] , [facility] y , [id number] Pcp:Pasquale Girard Subjective: * Chief Complaints: * 1 . Leg wound possible infection. * HPI: D ermatology: 64 year old male presents with c/o ulcer. c/o redness.? c/o Wound P t complains of lower rt leg wound. Pt had been going to [facility] wound clinic but stopped because [...] C oronary Artery Disease, LT Heart Cath, [facility] 06/2019, Hypertension, A Fib, Hyperlipidemia, Gout, ETOH abuse, Abnormal LFT's, Bilateral Inguinal Hernia, Diastolic Dysfunction, Echo, 09/2019, Osteoarthritis, anemia/GI bleed April 2023, Thrombocytopenia, s/p Heme/Onc evaluation at [facility], cirrhosis, s/p GI evaluation with [...] * Images: Billing Information: * Visit Code: 01771 Office Visit, Est Pt., Level 4. * Procedure Codes: G2211 Complex e/m visit add on. * Electronic signature of Viridiana Perera APRN on 05/17/2025 at 08:38 AM EDT Sign off status: Pending * Provider: CHARLES Villegas Date: 11/27/2023 Generated for Azeb gill/Hudson/Alisitting on: 0 05/17/2025 08:38 AM EDT History and Physical Notes * [...] leg wound. Pt had been going to [facility] wound clinic but stopped because [...]
--- OUTSIDE RECORDS SUMMARY | 2024-10-04 07:15 | XMS_ITS ---
Author Organization [facility] Address 1210 [facility] [address] [place] [phone] Care Team Providers Care Cinder Block Mason Name Role Phone Pasquale Girard Primary Care Provider Lana Perera Unavailable [phone] Allergies No Known Allergies REASON FOR VISIT 1 week Medications Medication SIG (Take, Route, Frequency, Duration) Notes Start Date End Date Status Xarelto 15 MG 1 tablet with food O rally Once a day; Duration: 30 day(s) Active Silvadene 1 % 1 application Surgical Technologist ally Once a day; Duration: 30 days 10/04/2024 Active Spironolactone 50 MG 1 tablet Orally Two times a day; Duration: 30 days Active Bisoprolol Fumarate 10 MG 1 tablet Orall y Once a day; Duration: 30 day(s) Active Mupirocin 2 % 1 application Surgical Technologist ally qd; Duration: 30 days 09/27/2024 Active levoFLOXacin 500 MG 1 tablet Orally Once a day Active Vital Signs Blood pressure systolic 130 mm Hg 10/04/20 24 Blood pressure diastolic 80 mm Hg 024 Heart Rate 62 /min 10/04/2024 Height 74 in 10/04/2024 Weight 229.2 lbs 10/04/2024 BMI 29.42 kg/m2 10/04/2024 Encounters Encounter Location Date Provider Diagnosis [facility] 12[facility] [address] [place] [phone] 10/04/2024 Lana Perera Cellulitis of right leg [...] Date Notes Silvadene 1 % 1 application Surgical Technologist ally Once a day; Duration: 30 days [...] * Solo AMBROSEDOB:[birth year] (65 yo M)Acc No.[id number]:10/04/2024 Progress Notes Patient: Solo HERNANDEZ Provider: CHARLES Villegas :1960 A ge:64 Y S ex:Male Date:10/04/2024 Address:[address] [place] [address] , [facility] , [id number] Pcp:Pasquale Girard Subjective: * Chief Complaints: * [...] C oronary Artery Disease, LT Heart Cath, [facility] 06/2019, Hypertension, A Fib, Hyperlipidemia, Gout, ETOH abuse, Abnormal LFT's, Bilateral Inguinal Hernia, Diastolic Dysfunction, Echo, 09/2019, Osteoarthritis, anemia/GI bleed April 2023, Thrombocytopenia, s/p Heme/Onc evaluation at [facility], cirrhosis, s/p GI evaluation with [...] Temp:97.2, BP:130/80, HR:62, O2 Sat:100% on RA, Nurse:[facility], Ht: 74, BMI:29.42. * Examination: G [...] * Images: Billing Information: * Visit Code: 56894 Office Visit, Est Pt., Level 3. * Procedure Codes: 53508 PULSE OX. G2211 Complex e/m visit add on. * Electronic signature of Viridiana Perera APRN on 05/17/2025 at 08:38 AM EDT Sign off status: Pending * Provider: CHARLES Villegas Date: 1 12/05/2023 Generated for Azeb gill/Hudson/Corrie on: 0 05/17/2025 08:38 AM EDT History [...]
--- OUTSIDE RECORDS SUMMARY | 2024-11-17 06:00 | XMS_ITS ---
Author Organization Jannie Address 1210 [facility] [address] [place] [phone] Care Team Providers Care Asic Design Engineer Name Role Phone Pasquale Girard Primary [...] Encounter Location Date Provider Diagnosis Zander 1210 [facility] [address] [place] [id number] 11/17/2024 Pasquale Girard Pre-op exam Z01.818 ; Arthritis of left knee M17.12 ; Anemia, unspecified type D64.9 ; Thyromegaly E01.0 ; Coronary artery disease involving [place] coronary artery of [place] heart without angina pectoris I25.10 ; Type [...] - E01.0) 11/17/2024 Coronary artery disease involving [place] coronary artery of [place] heart without angina pectoris (ICD-10 - I25.10) 11/17/2024 Type 2 diabetes mellitus without complication, unspecified whether terminal worker insulin use (ICD-10 - E11.9) 11/17/2024 Mixed [...] * Solo AMBROSEDOB:[birth year] (65 yo M)Acc No.[id number]:11/17/2024 Physical Patient: Solo HERNANDEZ Provider: Sofia Girard M.D. :1960 A ge:64 Y S ex:Male Date:11/17/2024 Address:[address] [place] [address] , [facility] y , [id number] Subjective: * Chief Complaints: * 1 . [...] C oronary Artery Disease, LT Heart Cath, [facility] 06/2019, Hypertension, A Fib, Hyperlipidemia, Gout, ETOH abuse, Abnormal LFT's, Bilateral Inguinal Hernia, Diastolic Dysfunction, Echo, 09/2019, Osteoarthritis, anemia/GI bleed April 2023, Thrombocytopenia, s/p Heme/Onc evaluation at [facility], cirrhosis, s/p GI evaluation with [...] E01.0? 5. C oronary artery disease involving [place] coronary artery of [place] heart without angina pectoris - I25.10 6 . T ype 2 diabetes mellitus without complication, unspecified whether terminal worker insulin use - E11.9 7 . M [...] * Images: Billing Information: * Visit Code: 47547 Office Visit, Est Pt., Level 4. * Procedure Codes: G2211 Complex e/m visit add on. * Electronic signature of Abbey Girard MD on 05/17/2025 at 08:38 AM EDT Sign off status: Pending * Provider: Sofia Girard M.D. Date: 0 11/17/2024 Generated for Printi ng/Faxing/eTransmitting on: 0 05/17/2025 08:38 AM EDT History [...]
--- OUTSIDE RECORDS SUMMARY | 2025-05-17 08:37 | XMS_ITS | Data Portability ---
Author Organization [facility] [place] [facility] Dang ADMIN Address [address] [place] [phone] Care Team Providers Care Accounting Manager Controller Name Role Phone [facility] Primary Care Provider [phone] Assessment Encounter Date Assessment Date Assessment LastModified [...] needed. 4) Thrombocytopenia: Profound. He sees a hotel controller in [place]. Previously improved on steroids. He stopped steroids 2 weeks ago. Obtain CBC now. 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 Following with hematology. [email or web address] Not available 06/25/2023 10:56:17 07/23/2023 07/23/2023 63-year-old [...] bloating. 4) Thrombocytopenia: Profound. He sees a hotel controller in [place]. Previously improved on steroids. This improved with steroids previously, worsenend when they were stopped. 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 Following with hematology. 6) GERD: Change Nexium to Pantoprazole. [email or web address] Not available 07/23/2023 18:04:22 08/11/2024 08/11/2024 64-year-old [...] reports recent US abd at [facility]. WIll obtain. Not available 08/11/2024 12:23:52 10/13/2024 [...] reports recent US abd at [facility]. WIll obtain. Not available 10/13/2024 10:41:40 02/09/2025 [...] - Labs ordered through with the patient's hotel controller, Dr. Bermudez. 3) Constipation: Miralax as needed. [...] for HCC. Patient to perform ultrasound at [facility]. Order given to patient today. Not available 02/09/2025 09:58:02 Plan of Treatment Reminders Order Date Submit Date Provider Last Modified By Organization Details Last Modified Time Details Appointments Establish ed Visit 15 min 2024 09:00A M Saeid Gilman MD Not available Not available Not available Lab CMP, serum or plasma 2024 025 CARODAVID [facility], [address], [address], [place], [address], 02/14/2025 10:44:25 CBC w/ auto diff 2024 025 CARO [facility], [address], [address], [place], [address], 02/14/2025 10:44:26 afp (alpha-fe toprotein ) tumor marker, serum or plasma 2024 025 CARODAVID [facility], [address], [address], [place], [address], 02/15/2025 14:25:49 PT/PTT, plasma 2024 025 CARO [facility], [address], [address], [place], [address], 02/14/2025 11:28:54 CMP, serum or plasma 2023 024 CARO [facility], [address], [address], [place], [address], 08/12/2024 10:04:33 afp (alpha-fe toprotein ) tumor marker, serum or plasma 2023 024 [email or web address] 4 [facility], [address], [address], [place], [address], 08/18/2024 09:03:53 PT/INR 2023 024 [email or web address] 4 [facility], [address], [address], [place], [address], 08/18/2024 09:03:53 CBC w/ auto diff 2023 024 CARO [facility], [address], [address], [place], [address], 08/12/2024 09:09:00 hepatitis A virus Ab, qualitati ve, immunoass ay, serum 2023 024 CARO [facility], [address], [address], [place], [address], 08/14/2024 19:21:40 hepatitis B surface Ab, qualitati ve, serum 2023 024 ZUNI [facility], [address], [address], [place], [address], 08/13/2024 12:51:57 CBC 2022 [email or web address] [place] [address] (Registration ), [address], [place], [address], 07/02/2023 08:11:07 CMP, serum or plasma 2022 [email or web address] [place] [address] (Registration ), [address], [place], [address], 07/02/2023 08:11:07 PT/INR 2022 [email or web address] [place] [address] (Registration ), [address], [place], [address], 07/02/2023 08:11:07 afp (alpha-fe toprotein ), serum [email or web address] [place] [address] (Registration ), [address] [place], [address], 07/02/2023 08:11:07 HUE (antinucl ear antibodie s) screen, serum [address] (Registration ), [address] [place], [address], 07/02/2023 08:11:07 igg, quantitat leigh, serum [address] (Registration ), [address] [place], [address], 07/02/2023 08:11:08 actin smooth muscle Ab, serum [address] (Registration ), [address] [place], [address], 07/02/2023 08:11:08 mitochond rial Ab, serum [address] (Registration ), [address] [place], [address], 07/02/2023 08:11:08 hemochrom atosis mutation (hfe), blood/tis leo [email or web address] [place] [address] (Registration ), [address] [place], [address], 07/02/2023 08:11:08 iron + TIBC + ferritin, serum [address] (Registration ), [address] [place], [address], 07/02/2023 08:11:08 alpha-1-a ntitrypsi n (aat), QN, serum 2022 [email or web address] [place] [address] (Registration ), [address], [place], [address], 07/02/2023 08:11:08 alpha-1-a ntitrypsi n (aat) phenotype , serum 2022 [email or web address] [place] [address] (Registration ), [address], [place], [address], 07/02/2023 08:11:09 hepatitis B surface Ab, quantitat leigh, serum [address] (Registration ), [address], [place], [address], 07/02/2023 08:11:09 hepatitis A Ab, total, serum [address] (Registration ), [address] [facility], [place], [address], 07/02/2023 08:11:09 hepatitis (A+B+C) panel, serum [address] (Registration ), [address] [facility], [place], [address], 07/02/2023 08:11:09 Referral None recorded. Procedures None recorded. Surgeries None recorded. Imaging US, liver 2024 025 [facility] (Scheduling), [address], [place], [address], 02/22/2025 11:08:42 US, liver 2022 023 [facility] (Scheduling), [address], [place], [address], 07/07/2023 10:31:32 Medication Orders Xifaxan 550 mg tablet 2023 025 [facility] #[id number], [address] [place], [address], 02/09/2025 09:26:24 Dexilant 60 mg capsule, delayed release 2023 024 [facility] #5437, [address] [place], [address], 08/11/2024 11:25:44 simethico ne 125 mg capsule 2022 023 [facility], [address] [place], [id number], 02/09/2025 09:26:02 pantopraz ole 40 mg tablet,de layed release 2022 023 [facility] #87[facility], [address] [address] [address], [place], [id number], 02/09/2025 09:22:38 Patient TargetsNo targets recorded. Patient InstructionsNo instructions recorded. Reason for Referral None Reported. Results Created Date Observation Date Name Description Value Unit Range Abnormal Flag Note LastModifiedBy Organization Detail LastModifiedTime 07/15/20 24 07/15/2024 BHAVANI PREP TISSU E bhavani prep tissue NEGATI VE negati ve Not Available [facility]) [address], [place], [address], 07/15/2024 17:33:57 07/07/2007/07/2023 US, liver No observ ation record ed. [facility] [address], [place], [address], 08/28/2023 14:46:27 02/23/20 25 02/21/2025 US, liver No observ ation record ed. [facility] [address], [place], [address], 02/28/2025 11:44:25 Result Notes None recorded. Problems Name Problem SNOMED Code Status Onset Date Resolution Date Notes Provider Name and Address Organization Details Recorded Time Cirrhosis of liver Active [address], [place], [place], [address] [place] [address] , [place] - [facility] & [place] 3 09:35:44 Constipation 80823504 Active [address], [place] [address] , [place] - [facility] & [place] 3 10:54:34 Thrombocytope cris disorder 113353426 Active [address], [place] [address] , [place] - [facility] & [place] 3 10:54:44 Superior mesenteric vein thrombosis 679049156 Active [address], [place] [address] , [place] - [facility] & [place] 3 10:55:43 Gastroesophag eal reflux disease without esophagitis 794309479 Active [address], [place] [address] , [place] - [facility] & [place] 3 09:35:58 Abdominal bloating 865624633 Active [address], [place] [address] , [place] - [facility] & [place] 3 09:36:01 Problem Notes None recorded. Procedures Surgical History Date Name Laterality Status Provider Name and Address Organization Details Recorded Time total knee replacement completed Kraig Medeiros [place] - [facility] & [place] 02/09/2025 09:27:31 total shoulder replacement completed Kraig [facility] - [facility] [place] & [place] 02/09/2025 09:27:47 operation on stomach completed Kraig EDMONDSON [facility] & [place] 02/09/2025 09:27:59 Imaging Results None recorded. Procedure [...] Updated DateTime 02/09/2025 187.96 cm 28.8 kg/m2 183955.4 9 g 73 /min 133/73 mm[Hg] Kraig Medeiros [facility] & [place] 5 09:28:08 Date Recorded Body height Body mass index (BMI) Body weight Body temperature Heart rate Oxygen saturation Oxygen saturation in Arterial blood by Pulse oximetry Heart rate Systolic And Diastolic Provider Name and Address Organization Details Last Updated DateTime 3 187.96 cm 29.8 kg/m2 030228. 51 g 97.5 [degF] 72 /min 96 % 96 % 69 /min 104/67 mm[Hg] Precious Faye [facility] & [place] 3 09:10:10 Date Recorded Body weight Body mass index (BMI) Body height Heart rate Body temperature Oxygen saturation Oxygen saturation in Arterial blood by Pulse oximetry Heart rate Systolic And Diastolic Provider Name and Address Organization Details Last Updated DateTime 4 752298. 2 g 29.7 kg/m2 187.96 cm 109 /min 98.1 [degF] 95 % 95 % 100 /min 164/76 mm[Hg] Precious HEART [facility] & [place] 4 10:29:44 Date Recorded Body height Body mass index (BMI) Body weight Body temperature Heart rate Systolic And Diastolic Provider Name and Address Organization Details Last Updated DateTime 4 187.96 cm 29.7 kg/m2 097351. 56 g 97.3 [degF] 75 /min 146/75 mm[Hg] Lisha Shell [facility] & [place] 4 09:10:59 Social History Question Answer Notes LastModified by [employer] Details LastModified Time Tobacco Smoking Status Never Smoker Precious Faye [facility], [facility] & [place] 06/25/2023 09:09:55 What Is Your Level Of Caffeine Consumption? Occasional Information not available 06/25/2023 Sex: Unknown Functional Status Question Answer Note LastModified by [employer] ion Details LastModified Time Do you use any illicit or recreational drugs? No [email or web address] Information not available 06/25/2023 Do you or have you ever used any other forms of tobacco or nicotine? No [email or web address] Information not available 06/25/2023 What is your level of alcohol consumption? None [email or web address] Information not available 06/25/2023 Mental Status None [...] SNOMED-CT Code Diagnosis ICD10 Code Diagnosis Note [id number] Saeid Gilman MD [facility] [address] [address] 06/01/2023 08:33:54 06/01/2023 13:05:24 [id number] Pablito Mccarthy PA-C [facility] [address] [address] 06/25/2023 08:46:19 06/25/2023 09:47:01 Cirrhosis of liver 30473999 K74.60 Constipation 76285875 K5 9.00 Thrombocyt openic disorder 971630098 D69.6 Superior m esenteric vein thrombosis 553881061 K55.059 History of gastrointestinal bleed 787256755 Z87.19 408101 Pablito Mccarthy PA-C [facility] [address] [address] 07/23/2023 09:01:42 07/23/2023 10:12:53 Cirrhosis of liver 88252970 K74.60 Constipation 24379246 K5 9.00 Thrombocyt openic disorder 134837128 D69.6 Superior m esenteric vein thrombosis 703690737 K55.059 History of gastrointestinal bleed 993534123 Z87.19 Gastroesop hageal reflux disease without esophagitis 463174484 K21.9 Abdominal bloating 03506 9008 R14.0 [id number] Saeid Gilman MD [facility] [address] [address] 08/11/2024 10:19:21 08/11/2024 11:42:38 Cirrhosis of liver 36141516 K74.60 Constipation 24912849 K5 9.00 Thrombocyt openic disorder 605502084 D69.6 Superior m esenteric vein thrombosis 555787745 K55.059 History of gastrointestinal bleed 598555633 Z87.19 Gastroesop hageal reflux disease without esophagitis 193321814 K21.9 Abdominal bloating 67538 9008 R14.0 Hepatic encephalopathy 31293164 K76.82 Ascites 865982452 R18.8 [id number] Saeid Gilman MD [facility] [address] [address] 10/13/2024 08:57:09 10/13/2024 09:43:50 Cirrhosis of liver 12925853 K74.60 Constipation 98649105 K5 9.00 Thrombocyt openic disorder 553388527 D69.6 Superior m esenteric vein thrombosis 433182622 K55.059 History of gastrointestinal bleed 959608984 Z87.19 Gastroesop hageal reflux disease without esophagitis 125470206 K21.9 Abdominal bloating 24154 9008 R14.0 Hepatic encephalopathy 04509243 K76.82 Ascites 679015606 R18.8 [id number] Saeid Gilman MD [facility] [address] [place] [address] 02/09/2025 09:08:06 02/09/2025 09:52:00 Cirrhosis of liver 63412843 K74.60 Constipation 81256130 K5 9.00 Thrombocyt openic disorder 299499195 D69.6 Superior m esenteric vein thrombosis 912754405 K55.059 History of gastrointestinal bleed 580462177 Z87.19 Gastroesop hageal reflux disease without esophagitis 619515187 K21.9 Abdominal bloating 12980 9008 R14.0 Hepatic encephalopathy 53680585 K76.82 Ascites 918079290 R18.8 Alcoholic cirrhosis 4200 50134 K70.31 Health Concerns Section Related Observation LastModified by Organization Detai ls LastModified Time None Recorded Concern Status LastModified by Organization Details LastModified Time None Recorded Advance Directives Directive None Recorded Payers Insurance Date Sequence Insurance Name Policy Number Policy Hidalgo Covered Member ID Hidalgo Member ID Guarantor Name 10/13/2024 2 [facility] [employer] - [employer] [place] (O) Halie Banda [id number] Solo Ambrose 08/12/2024 1 [place] Halie Banda [id number] Solo Ambrose 02/06/2025 1 [place] Solo Ambrose [id number] Solo Ambrose 02/06/2025 2 [place] [id number] Solo Ambrose [id number] Solo Ambrose Notes Date Note Type [...] as 16. He was seeing hematology in [place] and was placed on steroids which [...] improved with bowel movements. Pablito Mccarthy PA-C [address] , [place], [address], [place] - [place] & [place] 06/25/2023 10:56:47 07/23/2023 text/html PREVIOUS ( 3): [...] as 16. He was seeing hematology in [place] and was placed on steroids which [...] further disposition of care. Pablito Mccarthy PA-C [address] [facility], [place], [address], [place] - [facility] - [place] & [place] 07/23/2023 18:04:40 08/11/2024 text/html PREVIOUS ( 3): [...] as 16. He was seeing hematology [place] and was placed on steroids which [...] Sleep cycle is altered. Saeid Gilman MD [address], [place], [address], [place] & [place] 08/11/2024 12:24:41 10/13/2024 text/html PREVIOUS ( 3): [...] as 16. He was seeing hematology [place] and was placed on steroids which [...] He otherwise feels well. Saeid Gilman MD [address], [place], [address], [place] [facility] [place] 10/13/2024 10:41:59 02/09/2025 text/html PREVIOUS ( 3): [...] as 16. He was seeing hematology [place] and was placed on steroids which [...] increase in abdominal girth. Saeid Gilman MD [address], [place], [address], [facility] - [facility] - [place] & [place] 02/09/2025 10:06:18
--- OUTSIDE RECORDS SUMMARY | 2025-05-17 08:37 | XMS_ITS | Data Portability ---
Author Organization [facility] - JAY Vil[facility]is [facility] CLOSED Address [address] [facility] [address] [address] Assessment Encounter Date Assessment Date Assessment LastModified [...] 1 % topical gel 2017 018 INTERFACE [id number], [address] [place], [place], [id number], 8 10:08:42 Patient TargetsNo targets recorded. Patient Instructions Encounter Date Encounter Id Patient Instructions Last Modified By Organization Details Last Modified Time 12/24/2017 [id number] shoulder arthrit is: exercises [email or web address] Not available [...] situation. [email or web address] Not available 12/25/2017 07:56:08 12/29/2017 [id number] shoulder arthrit is: exercises [email or web address] Not available 12/29/2017 10:07:12 Reason for Referral None Reported. Results Created Date Observation Date Name Description Value Unit Range Abnormal Flag Note LastModifiedBy Organization Detail LastModifiedTime 12/24/19 18 12/24/2017 XR, silvianoul aishwarya, 2 or more view Teena song [facility] Jessica mo [address] [place] [address] Paticelsa t Name: KAELYN garcia : 959 [...] Sahu MD on 018 2:57 PM [email or web address] [facility] [place] [address], [place], [address], 12/24/2017 16:31:00 02/27/20 18 12/29/2017 rf lt shoul aishwarya stero id injec tion [address] [address] Paticelsa t Name: KAELYN KRAUS Paticelsa t [...] Isovue 300 was wasted and discar ded. [facility] [id number] [id number] [facility] [address]69- [phone] [facility] [address]- [phone] 0 IMPRES FRANCISCA: 1. The patien t is status post left should er arthro gram with dexame thason e and bupiva ed inject ion withou t compli cation . Interp reted By: Yo castillo MD Electr onical ly Signed By: Yo castillo MD on 018 12:[address] Radiology [facility] [address] [place], [address], 12/29/2017 18:14:15 Result Notes Documentation Provider Name and Address Organization Details Recorded Time Xr, Shoulder, 2 Or More View : [facility] [place] [address] [place] [address] Patient Name: KAELYN KAN Patient : 1960 [...] By: Kaelyn Sahu MD Carol THOMAS MD [address] [place] [address], [address], [facility] 12/24/2017 16:31:00 Procedures Surgical History Date Name Laterality Status Provider Name and Address Organization Details Recorded Time Orthopedic Surgery completed [facility] 12/24/2017 14:09:47 Imaging Results None recorded. Procedure [...] Updated DateTime 12/24/2017 187.96 cm 29.5 kg/m2 932817.25 g 142/82 mm[Hg] [facility] 12/24/2017 14:07:23 Date Recorded Body height Body mass index (BMI) Body weight Systolic And Diastolic Provider Name and Address Organization Details Last Updated DateTime 12/29/2017 187.96 cm 29.5 kg/m2 356501.25 g 165/104 mm[Hg] Mariel Brown [facility] 12/29/2017 09:48:14 Social History Question Answer Notes LastModified by Organizat ion Details LastModified Time Tobacco Smoking Status Never Smoker Hiwot Brown yuki [facility] 12/24/2017 14:09:39 What Was The Date [...] SNOMED-CT Code Diagnosis ICD10 Code Diagnosis Note [id number] W DARYA THOMAS MD [facility] [address] [place] [address] 12/24/2017 13:55:33 12/24/2017 15:58:56 Localized, primary osteoarthritis of the shoulder region 878827059 M19.523 [id number] CHRISTIANO VILLEGAS MD [facility] [address] [place] [address] 12/29/2017 09:32:32 12/29/2017 11:08:54 Localized, primary osteoarthritis of the shoulder region 738443723 M19.019 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 Carol THOMAS MD [address] [place] [address], [address], [facility] 12/28/2017 07:56:38 12/29/2017 text/html LEFT SHoulder pr [...] Uses Indomethacin for pain CHRISTIANO VILLEGAS MD [address] [place] [address], [address], [facility] 12/29/2017 10:09:31
--- OUTSIDE RECORDS SUMMARY | 2025-05-17 08:38 | XMS_ITS | Clinical Summary ---
Author Organization Healthcare Address [address] [place] [address] Care Team Providers Care Shipping Support Name Role Phone Pasquale Girard MD Primary Care Provider [phone] Allergies No known active allergies Medications bisoprolol [...] Influenza, seasonal, injectable 08/19/2021 Moderna COVID-19 Vaccine (Commercial Glazier) 12+ years ,12/27/2020 Social History Tobacco Use [...] - Risk 60-74 years 1-dose series) 2019 [id number] Vaccine (3 - season) 2024 01/24/2021, 12/27/2020 [...] ORDERABLES Final Resu lt [facility] [address] [place] [address] from Last 3 Months or Most Recently Relevant to Health Maintenance [place] [address] Advance Directives * Full Code (Latest Code Status on File) Date Activated Date Inactivated Comments 08/01/2023 3:26 PM 08/06/2023 6:04 PM Question Answer Comments Patient has decision-making capacity? Yes Care Teams Shipping Support Relationship Specialty Start Date End Date Pasquale Girard MD [address] [facility] [address] [place] [address] PCP - General 5/14/21
--- OUTSIDE RECORDS SUMMARY | 2025-05-17 08:38 | XMS_ITS | Encounter Summary ---
Author Organization Healthcare Address [address] [place] [address] Care Team Providers Care Senior Rd Engineer Name Role Phone Pasquale Girard MD Primary Care Provider [phone] Reason for Referral * Consultation (Routine) - Authorized Specialty Diagnoses / Procedures Referred By Haritha garcia Referred To Contact Orthopaedic Surgery Diagnoses Osteoarthritis of left knee, unspecified osteoarthritis type Wilner Ortiz DO [address] [place] [address] [place] [address] Phone: tel: fax: Jimbo Grover MD [address] [address] Phone: tel: fax: Referral ID Status Reason Start Date Expiration Date V isits Requested Visits Authorized [id number] Authorized 07/22/2024 01/21/2026 1 1 Encounter Details Date Type Department Care Team (Latest Contact Info) Description 07/22/2024 Community [facility] [address] [place] [address] Wilner Ortiz DO [address] [place] [id number] Osteoarthritis of left knee, unspecified osteoarthritis type [...] Primary documented in this encounter Care Teams Senior Rd Engineer Relationship Specialty Start Date End Date Pasquale Girard MD [address] [place] [address] PCP - General 03/15/21 documented as of this encounter
--- OUTSIDE RECORDS SUMMARY | 2025-05-17 08:38 | XMS_ITS | Patient Health Record ---
[facility] Address [address] [facility] 36 [facility] [address] [place] [id number] Care Team Providers Care Spikemaking Supervisor Name Role Phone Pasquale Girard Primary Care Provider Lana Perera Unavailable [phone] Allergies No Known Allergies Results Component Value [...] 0.2 0.0-0.4 K/mm3 BA# 0.0 0-0.2 K/mm3 CT scan : Abdomen and pelvis without contrast Reviewed date:06/15/2024 11:15:50 AM Interpretation:06/15 OV Performing Lab: Notes/Report: 06/15 OV RPRT Reviewed date:07/01/2024 10:55:32 AM Interpretation: Performing [...] utilized, such as Treponema pallidum (Syphilis) Screening [place] (801696) or Rapid Plasma Reagin (RPR) Test With Reflex to Quantitative RPR and Confirmatory Treponema pallidum Antibodies (647237). Performed at: [address] [id number] Real Estate Management Specialist: Nuno Otto PhD, Phone: [phone] P-Culture, Wound Aerobic w/G jojo Stain Reviewed date:10/01/2024 12:10:32 PM Interpretation: Performing Lab: Notes/Report: Test performed by [facility] [address] , [address], [place] [address] Jong Schneider MD, [place] CLIA: [id number] Specimen Source Leg - Lower Right Leg [...] date:06/22/2024 11:54:00 AM Interpretation: Performing Lab: Notes/Report: Hemoccult- IFOBT (in house) Reviewed date:06/20/2024 10:12:57 AM Interpretation:Positive Performing Lab: Notes/Report: Positive results positive H-CBC Reviewed date:05/24/2024 11:11:43 AM Interpretation:wbc 4.4, [...] K/mm3 BA# 0.0 0-0.2 K/mm3 H-CMP Reviewed date:05/24/2024 11:11:43 AM Interpretation:Na 134, [...] 0.3 0.0-0.4 K/mm3 BA# 0.0 0-0.2 K/mm3 H-CMP Reviewed date:06/15/2024 11:15:50 AM Interpretation:06/15 OV [...] AGRATIO 1.1 1.1-1.8 ALP 78 38-126 U/L RPR Reviewed date:07/01/2024 10:54:38 AM [...] Spironolactone 50 MG TAKE 1 TABLET BY [facility] TWICE A DAY; Duration: 90 Active Bisoprolol [...] Status Risk Notes Problem Nondependent alcohol abuse (530193246) EtOH [Ethanol] abuse NOS (305.00) Active confirmed Problem Abnormal liver function (04271704) Abnormal liver function study (794.8) Active confirmed Problem Essential hypertension (90869132) Essential (primary) hypertension (I10) Active confirmed Problem Hypertension (19739536) HTN (hypertension) (I10) Active confirmed Problem Vitamin D deficiency (32758752) Vitamin D deficiency (E55.9) Active confirmed Problem Hypertriglyceridemia (021183166) Hypertriglyceridemia (E78.1) Active confirmed Problem Abnormal results of liver function studies (791388622) Abnormal results of liver function studies (R94.5) Active confirmed Problem Mixed hyperlipidemia (448594227) Mixed hyperlipidemia (E78.2) Active confirmed Problem Mitral valve disorde r (36378443) Nonrheumatic mitral (valve) insufficiency (I34.0) Active confirmed Problem Ventricular prematur e depolarization (938469962) Ventricular premature depolarization (I49.3) Active confirmed Problem Gout (25781135) Gout, unspecifie d (M10.9) Active confirmed Problem Male erectile disorder (737467819) Male erectile disorder (N52.9) Active confirmed Problem Chronic pain (23036501) Other chronic pain (G89.29) Active confirmed Problem Atherosclerosis of coronary artery without angina pectoris (778338454003106) Atherosclerosis of grand ronde tribes coronary artery of grand ronde tribes heart without angina pectoris (I25.10) Active confirmed Problem Thrombocytopenia (678171013) Thrombocytopenia (D69.6) Active confirmed Problem Atherosclerotic hear t disease of grand ronde tribes coronary artery without angina pectoris (996155606821484) Coronary artery disease involving grand ronde tribes coronary artery of grand ronde tribes heart without angina pectoris (I25.10) Active confirmed Problem Gastroesophageal reflux disease (918464029) Gastroesophageal reflux disease, esophagitis presence not specified (K21.9) Active confirmed Problem Leukocytosis (904995556) Leukocytosis, unspecified type (D72.829) Active confirmed Problem Anemia (164154591) Anemia, unspe cified type (D64.9) Active confirmed Problem Alcoholism (6607874) Alcoholism (F10.20) Active confirmed Problem Localized, primary osteoarthritis of the shoulder region (921408211) 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) Active confirmed Problem Sciatica (81624861) Right-sided low back pain with right-sided sciatica, unspecified chronicity (M54.41) Active confirmed Problem Gastrointestinal hemorrhage (56730372) Gastrointestinal hemorrhage, unspecified gastrointestinal hemorrhage type (K92.2) Active confirmed Problem Thyromegaly (8384900) Thyromegaly (E01.0) Active confirmed Problem Acute on chronic diastolic heart failure (709904270) Acute on chronic diastolic congestive heart failure (I50.33) Active confirmed Problem Arthritis of left knee (2675714909774272) Arthritis of left knee (M17.12) Active confirmed Problem Type II diabetes mellitus without complication (568553592) Type 2 diabetes mellitus without complication, unspecified whether penitentiary insulin use (E11.9) Active confirmed Problem Diastolic dysfunctio n (8342996) Diastolic dysfunction (I51.89) Active confirmed Problem Bradyarrhythmia (534330589) Bradyarrhythmia (I49.8) Active confirmed Problem Cardiac arrhythmia (497812303) Bigeminy (I49.8) Active confirmed Problem Chronic idiopathic thrombocytopenic purpura (disorder) (12390782) Idiopathic thrombocytopenic purpura (ITP) (D69.3) Active confirmed Vital Signs Heart Rate 54 /min 11/17/2024 Blood pressure diastolic 74 mm Hg 11/17/2024 Height 74 in 11/17/2024 Blood pressure systolic 118 mm Hg 11/17/2024 Weight 227.8 lbs 11/17/2024 BMI 29.24 kg/m2 11/17/2024 Encounters Encounter Location Date Provider Diagnosis [facility] [address] [facility] [address] [place], [place] [id number] 06/09/2024 Pasquale [place] Umbilical hernia wit hout obstruction and without gangrene K42.9 [facility] [address] [place], [place] [id number] 06/15/2024 Pasquale Kingston Anemia, unspecified type D64.9 and Heartburn R12 [facility] [address] [place], [place] [id number] 06/20/2024 Pasquale Kingston [facility] [address] [place], [place] [id number] 06/22/2024 Pasquale Kingston Confusion R41.0 ; Anemia, unspecified type D64.9 ; Peripheral edema R60.0 and Heme positive stool R19.5 [facility] [address] [place], [place] [id number] 07/08/2024 Pasquale Kingston Intermittent confusi on R41.0 and Dizziness R42 [facility] [address] [place], [place] [id number] 09/27/2024 Lana Perera Cellulitis of right leg L03.115 and Wound of right lower extremity, subsequent encounter S81.801D [facility] [address] [place], [place] [id number] 10/04/2024 Lana Perera Cellulitis of right leg L03.115 and Wound of right lower extremity, subsequent encounter S81.801D [facility] [address] [place], [place] [id number] 11/17/2024 Pasquale Kingston Pre-op exam Z01.818 ; Arthritis of left knee M17.12 ; Anemia, unspecified type D64.9 ; Thyromegaly E01.0 ; Coronary artery disease involving grand ronde tribes coronary artery of grand ronde tribes heart without angina pectoris I25.10 ; Type 2 diabetes mellitus without complication, unspecified whether fisheries management biologist insulin use E11.9 ; Mixed hyperlipidemia E78.2 ; HTN (hypertension) I10 ; Gastroesophageal reflux disease, esophagitis presence not specified K21.9 ; Gout, unspecified M10.9 and Open wound of right lower extremity, subsequent encounter S81.801D [facility] [address] [place], [place] [id number] 05/23/2024 Pasquale Kingston Thrombocytopenia D69 .6 ; Mixed hyperlipidemia E78.2 and Peripheral edema R60.0 [facility] [address] [place], [place] [id number] 05/24/2024 Pasquale Kingston [facility] [address] [place], [place] [id number] 06/13/2024 Pasquale Kingston Anemia, unspecified type D64.9 and Peripheral edema R60.0 [facility] [address] [place], [place] [id number] 06/20/2024 Pasquale Kingston [facility] [address] [place] [id number] 06/22/2024 Pasquale Kingston [facility] [address] [place], [place] [id number] 06/29/2024 Pasquale Kingston Confusion R41.0 ; Anemia, unspecified type D64.9 and Cramp in limb R25.2 [facility] [address] [place], [place] [id number] 07/01/2024 Pasquale Kingston [facility] [address] [place] [id number] 07/18/2024 Pasquale Kingston [facility] [address] [place] [id number] 08/18/2024 Pasquale Kingston [facility] [address] [place] [id number] 09/30/2024 Lana Perera Wound of right lower extremity, subsequent encounter S81.801D [facility] [address] [facility] [address] [place] [id number] 04/07/2025 Pasqualejessica CastilloKingston Assessments Encounter Date Diagnosis (ICD Code) Assessment [...] - E01.0) 11/17/2024 Coronary artery disease involving grand ronde tribes coronary artery of grand ronde tribes heart without angina pectoris (ICD-10 - I25.10) 11/17/2024 Type 2 diabetes mellitus without complication, unspecified whether fisheries management biologist insulin use (ICD-10 - E11.9) 11/17/2024 Mixed [...] Date MEDICARE PART B [address] [address] [place] [id number] [phone] [id number] Solo Burch Self - patient is the insured [facility] [employer] [facility] [address] [place] [address] [id number] Solo Burch Self - patient is the insured Medications Administered Medication Instructions Date of Administration Dosage Notes Depo- Medrol 40 mg/ml 09/01/2016 1 mL Medical (General) History Medical History History ICD Code Coronary Artery Disease, LT Heart Cath, [facility] 06/2019 Hypertension A Fib Hyperlipidemia Gout ETOH abuse Abnormal LFT's Bilateral Inguinal Hernia Diastolic Dysfunction, Echo, 09/2019 Osteoarthritis anemia/GI bleed April 2023 Thrombocytopenia, s/p Heme/Onc evaluatio n at [facility] cirrhosis, s/p GI evaluation with Dr. Alivia batres DVT, Right leg, 2023 Immune Thrombocytopenia Purpura Surgical History Surgery Date(Month/Year) LT Shoulder Replacement 2005 Bilateral inguinal hernia repair 013 Percutaneous Coronary Intervention, 3 St ents Placed 06/2019 Rotator Cuff Tear Repair 02/18/2022 umbilical hernia repair - At 08/2023 Hospitalization History Reason Date(Month/Year)
--- OUTSIDE RECORDS SUMMARY | 2025-05-17 08:38 | XMS_ITS | Clinical Summary ---
Author Organization [facility] Address [address] [facility] [place] [address] Phone Care Team Providers Care Grand Jury Deputy Sheriff Name Role Phone Unavailable Primary Care Provider [...]
[2025-05-17] MEDS: IRON SUCROSE COMPLEX 200 MG in 0.9 % SODIUM CHLORIDE 100 ML 220 MG IV (08:46)
[2025-05-17] MEDS: SODIUM CHLORIDE 0.9% 10ML FLUSH SYRINGE 10 ML IV (08:47)
[2025-05-17 08:51] VITALS: BP 146/70; PULSE 65; RESP 18; TEMP 36.8; O2SAT 100
[2025-05-17 09:23] LABS: Activated Partial Thrombo Time 29.4 seconds (22.8-30.6); INR 1.15 (0.9-1.1); Prothrombin Time 12.6 seconds (10.1-12.5)
[2025-05-17 09:35] VITALS: BP 113/61; PULSE 62; RESP 16; TEMP 36.8; O2SAT 99
== END 2025-05-17 09:35 | disposition home or self-care (01) ==
LOC: INF 08:35
PROVIDERS: PCP Family Medicine; Visit Provider Internal Medicine Medical Oncology
DX: D69.3 Immune thrombocytopenic purpura (principal); D64.9 Anemia, unspecified; D69.6 Thrombocytopenia, unspecified
CPT/HCPCS: 85610; 85730; 96365; J1756

== ENCOUNTER 2025-05-19 08:25 | Outpatient (CLI) | payer MEDICARE, BC, SELFPAY ==
--- OUTSIDE RECORDS SUMMARY | 2024-09-27 06:45 | XMS_ITS ---
Author Organization [facility] Address 1210 [facility] [address] [place] [id number] Care Team Providers Care Manager Epic Name Role Phone Pasquale Girard Primary Care Provider [phone] Perera Lana Unavailable [phone] Allergies No Known Allergies Results Component Value Reference Range Notes P-Culture, Wound Aerobic w/G jojo Stain Reviewed date:10/01/2024 12:10:32 PM Interpretation: Performing Lab: Notes/Report: Test performed by [facility] [address] , [address], [place] [address] Jong Schneider MD, New Car Inspector CLIA: [id number] Specimen Source Leg - Lower Right Leg [...] day(s) Active Santyl 250 UNIT/GM 1 application Hospital Corpsman ally Once a day 05/04/2024 Active Spironolactone [...] 09/27/2024 Active Mupirocin 2 % 1 application Hospital Corpsman ally qd; Duration: 30 days 09/27/2024 Active Vital Signs Blood pressure systolic 130 mm Hg 09/27/20 24 Blood pressure diastolic 74 mm Hg 024 Heart Rate 87 /min 09/27/2024 Height 74 in 09/27/2024 Weight 224.7 lbs 09/27/2024 BMI 28.85 kg/m2 09/27/2024 Encounters Encounter Location Date Provider Diagnosis [facility] [address] [facility] [address] [place] [phone] 09/27/2024 Lana Perera Cellulitis of right leg [...] day(s) 09/27/2024 Mupirocin 2 % 1 application Hospital Corpsman ally qd; Duration: 30 days 09/27/2024 Treatment Notes Assessment Notes Cellulitis of right leg elevate the leg as much as possible Wound of right lower extremi ty, subsequent encounter keep wound dry with showering; apply mupirocin around edges of the wound ; keep covered Next Appt Details Follow Up: 1 Week, Reason: Progress Notes * Solo AMBROSEDOB:[birth year] (65 yo M)Acc No.[id number]:09/27/2024 Progress Notes Patient: Solo HERNANDEZ Provider: CHARLES Villegas :1960 A ge:64 Y S ex:Male Date:09/27/2024 Address:[address] [place] [address] , [facility] y , [id number] Pcp:Pasquale Girard Subjective: * Chief Complaints: * 1 . Leg wound possible infection. * HPI: D ermatology: 64 year old male presents with c/o ulcer. c/o redness.? c/o Wound P t complains of lower rt leg wound. Pt had been going to [facility] wound clinic but stopped because wound was [...] C oronary Artery Disease, LT Heart Cath, [facility] 06/2019, Hypertension, A Fib, Hyperlipidemia, Gout, ETOH abuse, Abnormal LFT's, Bilateral Inguinal Hernia, Diastolic Dysfunction, Echo, 09/2019, Osteoarthritis, anemia/GI bleed April 2023, Thrombocytopenia, s/p Heme/Onc evaluation at [facility], cirrhosis, s/p GI evaluation with Dr. Gilman, [...] * Images: Billing Information: * Visit Code: 53721 Office Visit, Est Pt., Level 4. * Procedure Codes: G2211 Complex e/m visit add on. * Electronic signature of Viridiana Perera APRN on 05/19/2025 at 08:28 AM EDT Sign off status: Pending * Provider: CHARLES Villegas Date: 11/27/2023 Generated for Azeb gill/Hudson/Alisitting on: 0 05/19/2025 08:28 AM EDT History and Physical Notes * [...] leg wound. Pt had been going to [facility] wound clinic but stopped because wound was [...]
--- OUTSIDE RECORDS SUMMARY | 2024-10-04 07:15 | XMS_ITS ---
Author Organization [facility] Address 1210 [facility] [address] [place] [phone] Care Team Providers Care Loss Prevention And Safety Manager Name Role Phone Pasquale Girard Primary Care Provider Lana Perera Unavailable [phone] Allergies No Known Allergies REASON FOR VISIT 1 week Medications Medication SIG (Take, Route, Frequency, Duration) Notes Start Date End Date Status Xarelto 15 MG 1 tablet with food O rally Once a day; Duration: 30 day(s) Active Silvadene 1 % 1 application Public Relations Studies Director ally Once a day; Duration: 30 days 10/04/2024 Active Spironolactone 50 MG 1 tablet Orally Two times a day; Duration: 30 days Active Bisoprolol Fumarate 10 MG 1 tablet Orall y Once a day; Duration: 30 day(s) Active Mupirocin 2 % 1 application Public Relations Studies Director ally qd; Duration: 30 days 09/27/2024 Active levoFLOXacin 500 MG 1 tablet Orally Once a day Active Vital Signs Blood pressure systolic 130 mm Hg 10/04/20 24 Blood pressure diastolic 80 mm Hg 024 Heart Rate 62 /min 10/04/2024 Height 74 in 10/04/2024 Weight 229.2 lbs 10/04/2024 BMI 29.42 kg/m2 10/04/2024 Encounters Encounter Location Date Provider Diagnosis [facility] 1210 [facility] [address] [place] [phone] 10/04/2024 Lana Perera Cellulitis of right leg [...] Date Notes Silvadene 1 % 1 application Public Relations Studies Director ally Once a day; Duration: 30 days [...] * Solo AMBROSEDOB:[birth year] (65 yo M)Acc No.[id number]:10/04/2024 Progress Notes Patient: Solo HERNANDEZ Provider: CHARLES Villegas :1960 A ge:64 Y S ex:Male Date:10/04/2024 Address:[address] [place] [address] , [facility] , [id number] Pcp:Pasquale Girard Subjective: * Chief Complaints: * [...] Disease, LT Heart Cath, [facility] 06/2019, Hypertension, A Fib, Hyperlipidemia, Gout, ETOH abuse, Abnormal LFT's, Bilateral Inguinal Hernia, Diastolic Dysfunction, Echo, 09/2019, Osteoarthritis, anemia/GI bleed April 2023, Thrombocytopenia, s/p Heme/Onc evaluation at [facility], cirrhosis, s/p GI evaluation with Dr. Gilman, [...] Temp:97.2, BP:130/80, HR:62, O2 Sat:100% on RA, Nurse:[facility], Ht: 74, BMI:29.42. * Examination: G [...] * Images: Billing Information: * Visit Code: 11910 Office Visit, Est Pt., Level 3. * Procedure Codes: 58768 PULSE OX. G2211 Complex e/m visit add on. * Electronic signature of Viridiana Perera APRN on 05/19/2025 at 08:29 AM EDT Sign off status: Pending * Provider: CHARLES Villegas Date: 1 12/05/2023 Generated for Azeb gill/Hudson/Corrie on: 0 05/19/2025 08:29 AM EDT History and Physical Notes * [...]
--- OUTSIDE RECORDS SUMMARY | 2024-11-17 06:00 | XMS_ITS ---
Author Organization Jannie Address 1210 [facility] [address] [place] [phone] Care Team Providers Care Apartment Property Manager Name Role Phone Pasquale Girard Primary [...] Encounter Location Date Provider Diagnosis Zander 1210 [facility] [address] [place] [phone] 11/17/2024 Pasquale Girard Pre-op exam Z01.818 ; Arthritis of left knee M17.12 ; Anemia, unspecified type D64.9 ; Thyromegaly E01.0 ; Coronary artery disease involving [place] coronary artery of [place] heart without angina pectoris I25.10 ; Type 2 diabetes mellitus without complication, unspecified whether custodial insulin use E11.9 ; Mixed hyperlipidemia E78.2 [...] - E01.0) 11/17/2024 Coronary artery disease involving [place] coronary artery of [place] heart without angina pectoris (ICD-10 - I25.10) 11/17/2024 Type 2 diabetes mellitus without complication, 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 :1960 A ge:64 Y S ex:Male Date:11/17/2024 Address:[address] [place] [address] , [facility] y , [id number] Subjective: * Chief Complaints: * 1 . [...] Artery Disease, LT Heart Cath, [facility] 06/2019, Hypertension, A Fib, Hyperlipidemia, Gout, ETOH abuse, Abnormal LFT's, Bilateral Inguinal Hernia, Diastolic Dysfunction, Echo, 09/2019, Osteoarthritis, anemia/GI bleed April 2023, Thrombocytopenia, s/p Heme/Onc evaluation at [facility], cirrhosis, s/p GI evaluation with [...] E01.0? 5. C oronary artery disease involving [place] coronary artery of [place] heart without angina pectoris - I25.10 6 . T ype 2 diabetes mellitus without complication, unspecified whether terminal superintendent insulin use - E11.9 7 . M [...] * Images: Billing Information: * Visit Code: 87954 Office Visit, Est Pt., Level 4. * Procedure Codes: G2211 Complex e/m visit add on. * Electronic signature of Abbey Girard MD on 05/19/2025 at 08:29 AM EDT Sign off status: Pending * Provider: Sofia Girard M.D. Date: 0 11/17/2024 Generated for Printi ng/Faxing/eTransmitting on: 0 05/19/2025 08:29 AM EDT History [...]
--- OUTSIDE RECORDS SUMMARY | 2025-05-19 08:29 | XMS_ITS | Clinical Summary ---
Author Organization [facility] Address [address] [facility] [place] [address] Phone Care Team Providers Care Extruder Operator Helper Name Role Phone Unavailable Primary Care Provider [...]
--- OUTSIDE RECORDS SUMMARY | 2025-05-19 08:29 | XMS_ITS | Clinical Summary ---
Author Organization Healthcare Address [address] [place] [address] Care Team Providers Care Commercial Carpet Installer Name Role Phone Pasquale Girard MD Primary Care Provider [phone] Allergies No known active allergies Medications bisoprolol [...] Influenza, seasonal, injectable 08/19/2021 Moderna COVID-19 Vaccine (Sheriffs Detective) 12+ years ,12/27/2020 Social History Tobacco Use [...] - Risk 60-74 years 1-dose series) 2019 [id number] Vaccine (3 - season) 2024 01/24/2021, 12/27/2020 [...] ORDERABLES Final Resu lt [facility] [address] [place] [address] from Last 3 Months or Most Recently Relevant to Health Maintenance [place] [phone] Advance Directives * Full Code (Latest Code Status on File) Date Activated Date Inactivated Comments 08/01/2023 3:26 PM 08/06/2023 6:04 PM Question Answer Comments Patient has decision-making capacity? Yes Care Teams Commercial Carpet Installer Relationship Specialty Start Date End Date Pasquale Girard MD [address] [facility] [address] [place] [address] PCP - General 5/14/21
--- OUTSIDE RECORDS SUMMARY | 2025-05-19 08:29 | XMS_ITS | Patient Health Record ---
[facility] [address] [facility] 36 [facility] [address] [place] [id number] Care Team Providers Care Ammunition Officer Name Role Phone Pasquale Girard Primary Care Provider [phone] PereraDaljit worthingtonine Unavailable [phone] Allergies No Known Allergies Results Component Value Reference Range Notes H-CMP Reviewed date:06/15/2024 11:15:50 AM Interpretation:06/15 OV [...] 0.3 0.0-0.4 K/mm3 BA# 0.0 0-0.2 K/mm3 P-Culture, Wound Aerobic w/G jojo Stain Reviewed date:10/01/2024 12:10:32 PM Interpretation: Performing Lab: Notes/Report: Test performed by [facility] [address] [place] [address] , [address] , [place] [address] Jong Schneider MD, Tractor Trailer Truck Driver CLIA: [id number] Specimen Source Leg - Lower Right Leg [...] Tobramycin S Trimeth/Sulfa S S=SUSCEPTIBLE I=INTERMEDIATE R=RESISTANT MRI : Brain with and without contrast [...] date:07/01/2024 10:54:38 AM Interpretation: Performing Lab: Notes/Report: FOBT - Inhouse Reviewed date:06/22/2024 11:54:00 AM Interpretation: Performing Lab: Notes/Report: CT scan : Abdomen and pelvis without contrast Reviewed date:06/15/2024 11:15:50 AM Interpretation:06/15 OV Performing Lab: Notes/Report: 06/15 OV H-CBC Reviewed date:05/24/2024 11:11:43 AM Interpretation:wbc 4.4, [...] AGRATIO 0.8 1.1-1.8 ALP 78 38-126 U/L RPRT Reviewed date:07/01/2024 10:55:32 AM Interpretation: Performing [...] utilized, such as Treponema pallidum (Syphilis) Screening [place] (851309) or Rapid Plasma Reagin (RPR) Test With Reflex to Quantitative RPR and Confirmatory Treponema pallidum Antibodies (047397). Performed at: [address] [id number] Cafeteria Manager: Nuno Otto PhD, Phone: [phone] Hemoccult- IFOBT (in house) Reviewed date:06/20/2024 10:12:57 [...] AGRATIO 1.1 1.1-1.8 ALP 72 38-126 U/L MRI : Brain with and w/o con trast Reviewed date:07/01/2024 10:55:32 AM Interpretation: Performing Lab: Notes/Report: Medications Medication SIG (Take, Route, Frequency, Duration) Notes Start Date End Date Status Spironolactone 50 MG TAKE 1 TABLET BY [facility] TWICE A DAY; Duration: 90 Active [...] Status Risk Notes Problem Nondependent alcohol abuse (011646112) EtOH [Ethanol] abuse NOS (305.00) Active confirmed Problem Abnormal liver function (94868492) Abnormal liver function study (794.8) Active confirmed Problem Essential hypertension (84954518) Essential (primary) hypertension (I10) Active confirmed Problem Hypertension (52440562) HTN (hypertension) (I10) Active confirmed Problem Vitamin D deficiency (04398721) Vitamin D deficiency (E55.9) Active confirmed Problem Hypertriglyceridemia (368528776) Hypertriglyceridemia (E78.1) Active confirmed Problem Abnormal results of liver function studies (262818608) Abnormal results of liver function studies (R94.5) Active confirmed Problem Mixed hyperlipidemia (317719070) Mixed hyperlipidemia (E78.2) Active confirmed Problem Mitral valve disorde r (96127432) Nonrheumatic mitral (valve) insufficiency (I34.0) Active confirmed Problem Ventricular prematur e depolarization (977314689) Ventricular premature depolarization (I49.3) Active confirmed Problem Gout (66544165) Gout, unspecifie d (M10.9) Active confirmed Problem Male erectile disorder (067931125) Male erectile disorder (N52.9) Active confirmed Problem Chronic pain (55449678) Other chronic pain (G89.29) Active confirmed Problem Atherosclerosis of coronary artery without angina pectoris (409957781577393) Atherosclerosis of [place]qu[place] coronary artery of coquille heart without angina pectoris (I25.10) Active confirmed Problem Thrombocytopenia (416423585) Thrombocytopenia (D69.6) Active confirmed Problem Atherosclerotic hear t disease of coquille coronary artery without angina pectoris (085650613838782) Coronary artery disease involving coquille coronary artery of coquille heart without angina pectoris (I25.10) Active confirmed Problem Gastroesophageal reflux disease (117618377) Gastroesophageal reflux disease, esophagitis presence not specified (K21.9) Active confirmed Problem Leukocytosis (714990121) Leukocytosis, unspecified type (D72.829) Active confirmed Problem Anemia (695104439) Anemia, unspe cified type (D64.9) Active confirmed Problem Alcoholism (1683382) Alcoholism (F10.20) Active confirmed Problem Localized, primary osteoarthritis of the shoulder region (415430940) 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) Active confirmed Problem Sciatica (60570210) Right-sided low back pain with right-sided sciatica, unspecified chronicity (M54.41) Active confirmed Problem Gastrointestinal hemorrhage (67821274) Gastrointestinal hemorrhage, unspecified gastrointestinal hemorrhage type (K92.2) Active confirmed Problem Thyromegaly (4808030) Thyromegaly (E01.0) Active confirmed Problem Acute on chronic diastolic heart failure (296399202) Acute on chronic diastolic congestive heart failure (I50.33) Active confirmed Problem Arthritis of left knee (3426002910891321) Arthritis of left knee (M17.12) Active confirmed Problem Type II diabetes mellitus without complication (102935005) Type 2 diabetes mellitus without complication, unspecified whether longterm insulin use (E11.9) Active confirmed Problem Diastolic dysfunctio n (8536138) Diastolic dysfunction (I51.89) Active confirmed Problem Bradyarrhythmia (606677073) Bradyarrhythmia (I49.8) Active confirmed Problem Cardiac arrhythmia (929710677) Bigeminy (I49.8) Active confirmed Problem Chronic idiopathic thrombocytopenic purpura (disorder) (09845462) Idiopathic thrombocytopenic purpura (ITP) (D69.3) Active confirmed Vital Signs Heart Rate 54 /min 11/17/2024 Blood pressure diastolic 74 mm Hg 11/17/2024 Height 74 in 11/17/2024 Blood pressure systolic 118 mm Hg 11/17/2024 Weight 227.8 lbs 11/17/2024 BMI 29.24 kg/m2 11/17/2024 Encounters Encounter Location Date Provider Diagnosis [facility] [address] [facility] [address] [place], [place] [id number] 06/09/2024 Pasquale [place] Umbilical hernia wit hout obstruction and without gangrene K42.9 [facility] [address] [place], [place] [id number] 06/15/2024 Pasquale [place] Anemia, unspecified type D64.9 and Heartburn R12 [facility] [address] [place], [place] [id number] 06/20/2024 Pasquale [place] [facility] [address] [place], [place] [id number] 06/22/2024 Pasquale [place] Confusion R41.0 ; Anemia, unspecified type D64.9 ; Peripheral edema R60.0 and Heme positive stool R19.5 [facility] [address] [place], [place] [id number] 07/08/2024 Pasquale [place] Intermittent confusi on R41.0 and Dizziness R42 [facility] [address] [place], [place] [id number] 09/27/2024 Lana Perera Cellulitis of right leg L03.115 and Wound of right lower extremity, subsequent encounter S81.801D [facility] [address] [place], [place] [id number] 10/04/2024 Lana Perera Cellulitis of right leg L03.115 and Wound of right lower extremity, subsequent encounter S81.801D [facility] [address] [place], [place] [id number] 11/17/2024 Pasquael [place] Pre-op exam Z01.818 ; Arthritis of left knee M17.12 ; Anemia, unspecified type D64.9 ; Thyromegaly E01.0 ; Coronary artery disease involving coquille coronary artery of coquille heart without angina pectoris I25.10 ; Type 2 diabetes mellitus without complication, unspecified whether manager intermediate insulin use E11.9 ; Mixed hyperlipidemia E78.2 ; HTN (hypertension) I10 ; Gastroesophageal reflux disease, esophagitis presence not specified K21.9 ; Gout, unspecified M10.9 and Open wound of right lower extremity, subsequent encounter S81.801D [facility] [address] [place], [place] [id number] 05/23/2024 Pasquale [place] Thrombocytopenia D69 .6 ; Mixed hyperlipidemia E78.2 and Peripheral edema R60.0 [facility] [address] [place], [place] [id number] 05/24/2024 Pasquale [place] [facility] [address] [place] [id number] 06/13/2024 Pasquale [place] Anemia, unspecified type D64.9 and Peripheral edema R60.0 [facility] [address] [place], [place] [id number] 06/20/2024 Pasquale [place] [facility] [address] [place], [place] [id number] 06/22/2024 Pasquale [place] [facility] [address] [place], [place] [id number] 06/29/2024 Pasquale [place] Confusion R41.0 ; Anemia, unspecified type D64.9 and Cramp in limb R25.2 [facility] [address] [place], [place] [id number] 07/01/2024 Pasquale [place] [facility] [address] [place], [place] [id number] 07/18/2024 Pasquale [place] [facility] [address] [place] [id number] 08/18/2024 Pasquale [place] [facility] [address] [place] [id number] 09/30/2024 Lana Perera Wound of right lower extremity, subsequent encounter S81.801D [facility] [address] [facility] [address] [place] [id number] 04/07/2025 Pas[place]alejessica CastilloLogansport Assessments Encounter Date Diagnosis (ICD Code) Assessment [...] - E01.0) 11/17/2024 Coronary artery disease involving coquille coronary artery of coquille heart without angina pectoris (ICD-10 - I25.10) 11/17/2024 Type 2 diabetes mellitus without complication, unspecified whether manager intermediate insulin use (ICD-10 - E11.9) 11/17/2024 Mixed [...] Date MEDICARE PART B [address] [address] [place] [id number] [phone] [id number] Solo Burch Self - patient is the insured [facility] [employer] [facility] [address] [place] [address] [phone] [id number] Solo Burch Self - patient is the insured Medications Administered Medication Instructions Date of Administration Dosage Notes Depo- Medrol 40 mg/ml 09/01/2016 1 mL Medical (General) History Medical History History ICD Code Coronary Artery Disease, LT Heart Cath, [facility] 06/2019 Hypertension A Fib Hyperlipidemia Gout ETOH abuse Abnormal LFT's Bilateral Inguinal Hernia Diastolic Dysfunction, Echo, 09/2019 Osteoarthritis anemia/GI bleed April 2023 Thrombocytopenia, s/p Heme/Onc evaluatio n at [facility] cirrhosis, s/p GI evaluation with Dr. Alivia batres DVT, Right leg, 2023 Immune Thrombocytopenia Purpura Surgical History Surgery Date(Month/Year) LT Shoulder Replacement 2005 Bilateral inguinal hernia repair 013 Percutaneous Coronary Intervention, 3 St ents Placed 06/2019 Rotator Cuff Tear Repair 02/18/2022 umbilical hernia repair - At 08/2023 Hospitalization History Reason Date(Month/Year)
--- OUTSIDE RECORDS SUMMARY | 2025-05-19 08:29 | XMS_ITS | Data Portability ---
Author Organization [facility] Address [address] [facility] [address] [place] [address] Assessment Encounter Date Assessment Date Assessment LastModified [...] 1 % topical gel 2017 018 INTERFACE [id number], [address] [place], [place], [id number], 8 10:08:42 Patient TargetsNo targets recorded. Patient Instructions Encounter Date Encounter Id Patient Instructions Last Modified By Organization Details Last Modified Time 12/24/2017 [id number] shoulder arthrit is: exercises [email or web address] Not available [...] situation. [email or web address] Not available 12/25/2017 07:56:08 12/29/2017 [id number] shoulder arthrit is: exercises [email or web address] Not available 12/29/2017 10:07:12 Reason for Referral None Reported. Results Created Date Observation Date Name Description Value Unit Range Abnormal Flag Note LastModifiedBy Organization Detail LastModifiedTime 12/24/19 18 12/24/2017 XR, silvianoul aishwarya, 2 or more view Teena song [facility] [place] [address] [place] [address] Paticelsa t Name: KAELYN garcia : 959 [...] plasty proced ure Interp reted By: Kaelyn aShu MD Electr onical ly Signed By: Kaelyn Sahu MD on 018 2:57 PM [email or web address] [facility] [place] [address], [place], [address], 12/24/2017 16:31:00 02/27/20 18 12/29/2017 rf lt shoul aishwarya stero id injec tion [address] [address] Paticelsa t Name: KAELYN KRAUS Paticelsa t [...] Isovue 300 was wasted and discar ded. [facility] 0270-1 315-30 [facility] [address]- 165-05 [facility] [address]- [phone] IMPRES FRANCISCA: 1. The patien t is status post left should er arthro gram with dexame thason e and bupiva ed inject ion withou t compli cation . Interp reted By: Yo castillo MD Electr onical ly Signed By: Yo castillo MD on 018 12:[email or web address] Radiology [facility] [address] [place], [address], 12/29/2017 18:14:15 Result Notes Documentation Provider Name and Address Organization Details Recorded Time Xr, Shoulder, 2 Or More View : [facility] [place] [address] [place] [address] Patient Name: KAELYN KAN Patient : 1960 [...] By: Kaelyn Sahu MD Carol THOMAS MD [address] [place] [address], [phone], [facility] 12/24/2017 16:31:00 Procedures Surgical History Date Name Laterality Status Provider Name and Address Organization Details Recorded Time Orthopedic Surgery completed [facility] 12/24/2017 14:09:47 Imaging Results None recorded. Procedure [...] Updated DateTime 12/24/2017 187.96 cm 29.5 kg/m2 196657.25 g 142/82 mm[Hg] [facility] 12/24/2017 14:07:23 Date Recorded Body height Body mass index (BMI) Body weight Systolic And Diastolic Provider Name and Address Organization Details Last Updated DateTime 12/29/2017 187.96 cm 29.5 kg/m2 751069.25 g 165/104 mm[Hg] Mariel Brown [facility] 12/29/2017 09:48:14 Social History Question Answer Notes LastModified by Organizat ion Details LastModified Time Tobacco Smoking Status Never Smoker Hiwot Brown yuki [facility] 12/24/2017 14:09:39 What Was The [...] SNOMED-CT Code Diagnosis ICD10 Code Diagnosis Note [id number] W DARYA THOMAS MD [facility] [address] [place] [address] 12/24/2017 13:55:33 12/24/2017 15:58:56 Localized, primary osteoarthritis of the shoulder region 990904658 M19.565 [id number] CHRISTIANO VILLEGAS MD [facility] [address] [place] [address] 12/29/2017 09:32:32 12/29/2017 11:08:54 Localized, primary osteoarthritis of the shoulder region [id number] M19.019 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 Carol THOMAS MD [address] [place] [address], [phone], [facility] 12/28/2017 07:56:38 12/29/2017 text/html LEFT [...] Uses Indomethacin for pain CHRISTIANO VILLEGAS MD [address] [place] [address], [phone], [facility] 12/29/2017 10:09:31
--- OUTSIDE RECORDS SUMMARY | 2025-05-19 08:29 | XMS_ITS | Clinical Summary ---
Author Organization [facility] Address [address] [place] [address] Care Team Providers Care Merchandise Planner Name Role Phone Pasquale Girard MD Primary Care Provider + [phone] Allergies No known active allergies Medications losartan (COZAAR) 100 MG tablet Take 100 mg by mouth Every Night. 12/06/2021 Active bisoprolol (ZEBeta) 5 MG tablet Take 5 mg by mouth Daily. 10/28/2021 Active celecoxib (CeleBREX) 100 MG capsule Take 100 mg by mouth 2 (Two) Times a Day As Needed for Mild Pain . Active esomeprazole (nexIUM) 20 MG capsule Take 20 mg by mouth Every Morning Before Breakfast. Active vitamin D3 125 MCG (5000 UT) capsule capsule Take 5,000 Units by mouth Daily. Active indomethacin (INDOCIN) 50 MG capsule Take 50 mg by mouth 3 (Three) Times a Day As Needed. 06/16/2022 Active Active Problems Problem Noted Date Diagnosed Date Status post total shoulder arthroplasty, right 0 02/20/2022 HTN (hypertension) 02/19/2022 Biceps tendinitis of right upper extremity 02/06 Lateral epicondylitis of right elbow 02/06/2022 Primary localized osteoarthrosis of right should er region 01/14/2022 Contracture of joint of right shoulder region Immunizations Immunization Administration Dates Next Due COVID-19 (MODERNA) Monovalent Original Booster 0 01/24/2021,12/27/2020 Family History Medical History Relation Name Comments Diabetes Brother Ed Halie Relation Name Status Comments Brother Ed Halie Social History Tobacco Use Types Packs/Day Years Used Date Smoking Tobacco: Never Smokeless Tobacco: Current Chew Comments:occasional, 1/5 pac k weekly Alcohol Use Standard Drinks/Week Comments Yes 20 (1 standard drink = 0.6 oz pu re alcohol) 2-3 beers daily Abuse Screen Answer Date Recorded Unsafe at Home or Work/School Not on file Feels Threatened by Someone? Not on file Does Anyone Keep You from Co ntacting Others or Doint Things Outside the Home? Not on file 08/14/2023 Physical Sign of Abuse Present Not on file 1 Housing Stability Answer Date Recorded Current Living Arrangements Not on file 08/02 Potentially Unsafe Housing Conditions Not on janice e 08/14/2023 Family and Community Support Answer David e Recorded Help with Day-to-Day Activities Not on file 08/14/2023 Lonely or Isolated Not on file 08/14/2023 Employment Answer Date Recorded Do you want help finding or keeping work or a micky b? Not on file 08/14/2023 Disabilities Answer Date Recorded Concentrating, Remembering, or Making Decisions Difficulty Not on file 08/14/2023 Doing Errands Independently Difficulty Not on fi le 08/14/2023 Education Answer Date Recorded Help with school or training? Not on file Preferred Language Not on file 08/14/2023 Sex and Gender Information Value Date Recorded Sex Assigned at Not on file Legal Sex Male 10:32 AM EST Gender Identity Not on file Sexual Orientation Not on file Last Filed Vital Signs Vital Sign Reading Time Taken Comments Blood Pressure 122/84 07/01/2022 8:58 AM EDT Pulse 55 02/20/2022 7:26 AM EDT Temperature 36.2 C (97.2 F) 03/06/2022 8:27 AM EDT Respiratory Rate 16 02/20/2022 7:26 AM EDT Oxygen Saturation 95% 02/19/2022 11:48 PM EDT Inhaled Oxygen Concentration - - Weight 108 kg (238 lb 1.6 oz) 07/01/2022 8:58 AM EDT Height 185.4 cm (6' 0.99 ) 07/01/2022 8:58 AM ED T Body Mass Index 31.42 07/01/2022 8:58 AM EDT Plan of Treatment Health Maintenance Due Date Last Done Comments TDAP/TD VACCINES (1 - Tdap) 1978 COLOGUARD 2004 COLON CANCER SCREENING 5 YEA R SIGMOIDOSCOPY 2004 COLONOSCOPY [address] CANCER SCREENING 2004 CT COLONOGRAPHY 2004 FECAL OCCULT BLOOD TEST 2004 FIT Testing (1 year) 2004 Pneumococcal Vaccine 50+ (1 of 1 - PCV) 2009 ZOSTER VACCINE (1 of 2) 2009 ANNUAL PHYSICAL 01/14/2022 HEPATITIS C SCREENING 01/14/2022 AAA SCREEN ONCE 2024 COVID-19 Vaccine ( season) 2024, 12/27/2020 INFLUENZA VACCINE 08/02/2025 Medical Devices Implanted Type Area Emergency Preparedness Manager Device Identifier Shelf Expiration Date Model / Serial / Lot Cmt Bone [id number] 20gm - [id number] Implanted:Qt y: 1 on 02/19/2022 by Sam Massey MD at [facility] Implant Right: Shoulder DEPUY [id number] 12/30/2022 [id number] / / [id number] Sut Fw #2 W/Tpr Ndl 1/2 Cir 38in 97cm 26.5mm Blair - [id number] Implanted:Qt y: 3 on 02/19/2022 by Sam Massey MD at [facility] Implant Right: Shoulder ARTHREX 03/01/2026 [id number] / / [id number] Saravanan Aug Aequalis Performplus Cortiloc Peg Cocr 15d Lg Rt - [id number] - [id number] Implanted:Qt y: 1 on 02/19/2022 by Sam Massey MD at [facility] Implant Right: Shoulder TORNIER [id number] 09/10/2025 [id number] / [id number] / Nucleus Shldr Simpliciti Sz2 - [id number] - [id number] Implanted:Qt y: 1 on 02/19/2022 by Sam Massey MD at [facility] Implant Right: Shoulder TORNIER 11/26/2026 [id number] / [id number] / NA Hd Hum/Shldr Simpliciti [id number] - [id number] - [id number] Implanted:Qt y: 1 on 02/19/2022 by Sam Massey MD at [facility] Implant Right: Shoulder TORNIER 08/28/2026 [id number] / [id number] / NA Shldr Simpliciti Nucleus Hd Saravanan Tornier - [id number] Implanted:Qt y: 1 on 02/19/2022 by Sam Massey MD at [facility] Implant Right: Shoulder TORNIER CAPSHLDRHDGLENTO R N / / Insurance [facility] BLUE CROSS BLUE SHIELD PPO Advance Directives * CPR (Attempt to Resuscitate) (Latest Code Status on File) Date Activated Date Inactivated Comments 02/19/2022 6:32 PM 02/20/2022 2:33 PM Question Answer Comments Code Status (Patient has no pulse and is not breathing): CPR (Attempt to Resuscitate) Medical Interventions (Patie nt has pulse or is breathing): Full Level Of Support Discussed With: Patient Care Teams Merchandise Planner Relationship Specialty Start Date End Date Pasquale Girard MD [address] [place] [address] [place] [address] [place] [address] PCP - General Family Medicine 01/14/22
--- OUTSIDE RECORDS SUMMARY | 2025-05-19 08:30 | XMS_ITS | Encounter Summary ---
Author Organization Healthcare Address [address] [place] [address] Care Team Providers Care Grade School Teacher Name Role Phone Pasquale Girard MD Primary Care Provider [phone] Reason for Referral * Consultation (Routine) - Authorized Specialty Diagnoses / Procedures Referred By Haritha garcia Referred To Contact Orthopaedic Surgery Diagnoses Osteoarthritis of left knee, unspecified osteoarthritis type Wilner Ortiz DO [address] [place] [address] [place] [address] Phone: tel: fax: Jimbo Grover MD [address] [address] Phone: tel: fax: Referral ID Status Reason Start Date Expiration Date V isits Requested Visits Authorized [id number] Authorized 07/22/2024 01/21/2026 1 1 Encounter Details Date Type Department Care Team (Latest Contact Info) Description 07/22/2024 Community [facility] [address] [place] [address] Wilner Ortiz DO [address] [place] [id number] Osteoarthritis of left knee, unspecified osteoarthritis type [...] Primary documented in this encounter Care Teams Grade School Teacher Relationship Specialty Start Date End Date Pasquale Girard MD [address] [place] [address] PCP - General 03/15/21 documented as of this encounter
--- OUTSIDE RECORDS SUMMARY | 2025-05-19 08:30 | XMS_ITS | Data Portability ---
Author Organization [facility] [place] [facility] Dang ADMIN Address [address] [place] [address] Care Team Providers Care Field Logistics Coordinator Name Role Phone [facility] Primary [...] needed. 4) Thrombocytopenia: Profound. He sees a state epidemiologist in [place]. Previously improved on steroids. He stopped steroids 2 weeks ago. Obtain CBC now. 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 Following with hematology. [email or web address] Not available 06/25/2023 10:56:17 07/23/2023 07/23/2023 63-year-old [...] bloating. 4) Thrombocytopenia: Profound. He sees a state epidemiologist in [place]. Previously improved on steroids. This improved with steroids previously, worsenend when they were stopped. 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 Following with hematology. 6) GERD: Change Nexium to Pantoprazole. [email or web address] Not available 07/23/2023 18:04:22 08/11/2024 08/11/2024 64-year-old [...] HCC. Pt reports recent US abd at [facility]. WIll obtain. Not available 08/11/2024 12:23:52 [...] HCC. Pt reports recent US abd at [facility]. WIll obtain. Not available 10/13/2024 10:41:40 [...] - Labs ordered through with the patient's state epidemiologist, Dr. Bermudez. 3) Constipation: Miralax as needed. [...] for HCC. Patient to perform ultrasound at [facility]. Order given to patient today. Not available 02/09/2025 09:58:02 Plan of Treatment Reminders Order Date Submit Date Provider Last Modified By Organization Details Last Modified Time Details Appointments Establish ed Visit 15 min 2024 09:00A M Saeid Gilman MD Not available Not available Not available Lab CMP, serum or plasma 2024 025 CARODAIVD [facility], [address], [address], [place], [address], 02/14/2025 10:44:25 CBC w/ auto diff 2024 025 CARO [facility], [address], [address], [place], [address], 02/14/2025 10:44:26 afp (alpha-fe toprotein ) tumor marker, serum or plasma 2024 025 CARODAVID [facility], [address], [address], [place], [address], 02/15/2025 14:25:49 PT/PTT, plasma 2024 025 CARO [facility], [address], [address], [place], [address], 02/14/2025 11:28:54 CMP, serum or plasma 2023 024 CARO [facility], [address], [address], [place], [address], 08/12/2024 10:04:33 afp (alpha-fe toprotein ) tumor marker, serum or plasma 2023 024 [email or web address] 4 [facility], [address], [address], [place], [address], 08/18/2024 09:03:53 PT/INR 2023 024 [email or web address] 4 [facility], [address], [address], [place], [address], 08/18/2024 09:03:53 CBC w/ auto diff 2023 024 CARO [facility], [address], [address], [place], [address], 08/12/2024 09:09:00 hepatitis A virus Ab, qualitati ve, immunoass ay, serum 2023 024 CARO [facility], [address], [address], [place], [address], 08/14/2024 19:21:40 hepatitis B surface Ab, qualitati ve, serum 2023 024 CORDELL [facility], [address], [address], [place], [address], 08/13/2024 12:51:57 CBC 2022 [email or web address] [place] [address] (Registration ), [address], [place], [address], 07/02/2023 08:11:07 CMP, serum or plasma 2022 [email or web address] [place] [address] (Registration ), [address], [place], [address], 07/02/2023 08:11:07 PT/INR 2022 [email or web address] [place] [address] (Registration ), [address], [place], [address], 07/02/2023 08:11:07 afp (alpha-fe toprotein ), serum 2022 [email or web address] [place] [address] (Registration ), [address] [place], [address], 07/02/2023 08:11:07 HUE (antinucl ear antibodie s) screen, serum [address] (Registration ), [address] [place], [address], 07/02/2023 08:11:07 igg, quantitat leigh, serum [address] (Registration ), [address] [place], [address], 07/02/2023 08:11:08 actin smooth muscle Ab, serum [address] (Registration ), [address] [place], [address], 07/02/2023 08:11:08 mitochond rial Ab, serum [address] (Registration ), [address] [place], [address], 07/02/2023 08:11:08 hemochrom atosis mutation (hfe), blood/tis leo [email or web address] [place] [address] (Registration ), [address] [place], [address], 07/02/2023 08:11:08 iron + TIBC + ferritin, serum [address] (Registration ), [address] [place], [address], 07/02/2023 08:11:08 alpha-1-a ntitrypsi n (aat), QN, serum 2022 [email or web address] [place] [address] (Registration ), [address], [place], [address], 07/02/2023 08:11:08 alpha-1-a ntitrypsi n (aat) phenotype , serum 2022 [email or web address] [place] [address] (Registration ), [address], [place], [address], 07/02/2023 08:11:09 hepatitis B surface Ab, quantitat leigh, serum [address] (Registration ), [address], [place], [address], 07/02/2023 08:11:09 hepatitis A Ab, total, serum [address] (Registration ), [address] [facility], [place], [address], 07/02/2023 08:11:09 hepatitis (A+B+C) panel, serum [address] (Registration ), [address] [facility], [place], [address], 07/02/2023 08:11:09 Referral None recorded. Procedures None recorded. Surgeries None recorded. Imaging US, liver 2024 025 [facility] (Scheduling), [address], [place], [address], 02/22/2025 11:08:42 US, liver 2022 023 [facility] (Scheduling), [address], [place], [address], 07/07/2023 10:31:32 Medication Orders Xifaxan 550 mg tablet 2023 025 [facility] #[id number], [address] [place], [address], 02/09/2025 09:26:24 Dexilant 60 mg capsule, delayed release 2023 024 [facility] #[id number], [address] [place], [address], 08/11/2024 11:25:44 simethico ne 125 mg capsule 2022 023 [address], [address] [place], [id number], 02/09/2025 09:26:02 pantopraz ole 40 mg tablet,de layed release 2022 023 [facility] #[id number], [address] [address] [address], [place], [id number], 02/09/2025 09:22:38 Patient TargetsNo targets recorded. Patient InstructionsNo instructions recorded. Reason for Referral None Reported. Results Created Date Observation Date Name Description Value Unit Range Abnormal Flag Note LastModifiedBy Organization Detail LastModifiedTime 07/15/20 24 07/15/2024 BHAVANI PREP TISSU E bhavani prep tissue NEGATI VE negati ve Not Available [facility] ([facility]) [address], [place], [address], 07/15/2024 17:33:57 07/07/2007/07/2023 US, liver No observ ation record ed. [facility] [address], [place], [address], 08/28/2023 14:46:27 02/23/20 25 02/21/2025 US, liver No observ ation record ed. [facility] [address], [place], [address], 02/28/2025 11:44:25 Result Notes None recorded. Problems Name Problem SNOMED Code Status Onset Date Resolution Date Notes Provider Name and Address Organization Details Recorded Time Cirrhosis of liver Active [address], [place], [place], [address] [place] [address] , [place] - [facility] & [place] 3 09:35:44 Constipation 87760891 Active [address], [place] [address] , [place] - [facility] & [place] 3 10:54:34 Thrombocytope cris disorder 287020514 Active [address], [place] [address] , [place] - [facility] & [place] 3 10:54:44 Superior mesenteric vein thrombosis 913914688 Active [address], [place] [address] , [place] - [facility] & [place] 3 10:55:43 Gastroesophag eal reflux disease without esophagitis 472994431 Active [address], [place] [address] , [place] - [facility] & [place] 3 09:35:58 Abdominal bloating 777597306 Active [address], [place] [address] , [place] - [facility] & [place] 3 09:36:01 Problem Notes None recorded. Procedures Surgical History Date Name Laterality Status Provider Name and Address Organization Details Recorded Time total knee replacement completed Kraig Medeiros [place] - [facility] & [place] 02/09/2025 09:27:31 total shoulder replacement completed Kraig [facility] - [facility] [place] & [place] 02/09/2025 09:27:47 operation on stomach completed Kraig EDMONDSON [facility] & [place] 02/09/2025 09:27:59 Imaging Results None [...] Updated DateTime 02/09/2025 187.96 cm 28.8 kg/m2 161348.4 9 g 73 /min 133/73 mm[Hg] Kraig Medeiros [facility] & [place] 5 09:28:08 Date Recorded Body height Body mass index (BMI) Body weight Body temperature Heart rate Oxygen saturation Oxygen saturation in Arterial blood by Pulse oximetry Heart rate Systolic And Diastolic Provider Name and Address Organization Details Last Updated DateTime 3 187.96 cm 29.8 kg/m2 769659. 51 g 97.5 [degF] 72 /min 96 % 96 % 69 /min 104/67 mm[Hg] Precious Faye [facility] & [place] 3 09:10:10 Date Recorded Body weight Body mass index (BMI) Body height Heart rate Body temperature Oxygen saturation Oxygen saturation in Arterial blood by Pulse oximetry Heart rate Systolic And Diastolic Provider Name and Address Organization Details Last Updated DateTime 4 343564. 2 g 29.7 kg/m2 187.96 cm 109 /min 98.1 [degF] 95 % 95 % 100 /min 164/76 mm[Hg] Precious HEART [facility] & [place] 4 10:29:44 Date Recorded Body height Body mass index (BMI) Body weight Body temperature Heart rate Systolic And Diastolic Provider Name and Address Organization Details Last Updated DateTime 4 187.96 cm 29.7 kg/m2 038598. 56 g 97.3 [degF] 75 /min 146/75 mm[Hg] Lisha Shell [facility] & [place] 4 09:10:59 Social History Question Answer Notes LastModified by [employer] Details LastModified Time Tobacco Smoking Status Never Smoker Precious Faye [facility], [facility] & [place] 06/25/2023 09:09:55 What Is Your Level Of Caffeine Consumption? Occasional [email or web address] Information not available 06/25/2023 Sex: Unknown Functional Status Question Answer Note LastModified by [employer] ion Details LastModified Time Do you use any illicit or recreational drugs? No [email or web address] Information not available 06/25/2023 Do you or have you ever used any other forms of tobacco or nicotine? No [email or web address] Information not available 06/25/2023 What is your level of alcohol consumption? None [email or web address] Information not available 06/25/2023 Mental Status None [...] SNOMED-CT Code Diagnosis ICD10 Code Diagnosis Note [id number] Saeid Gilman MD [facility] [address] [address] 06/01/2023 08:33:54 06/01/2023 13:05:24 [id number] Pablito Mccarthy PA-C [facility] [address] [address] 06/25/2023 08:46:19 06/25/2023 09:47:01 Cirrhosis of liver 60206352 K74.60 Constipation 08200314 K5 9.00 Thrombocyt openic disorder 586911744 D69.6 Superior m esenteric vein thrombosis 539186874 K55.059 History of gastrointestinal bleed 255559741 Z87.19 [id number] Pablito Mccarthy PA-C [facility] [address] [address] 07/23/2023 09:01:42 07/23/2023 10:12:53 Cirrhosis of liver 06392390 K74.60 Constipation 36156667 K5 9.00 Thrombocyt openic disorder 330345575 D69.6 Superior m esenteric vein thrombosis 856554257 K55.059 History of gastrointestinal bleed 115540892 Z87.19 Gastroesop hageal reflux disease without esophagitis 268298769 K21.9 Abdominal bloating 27757 9008 R14.0 [id number] Saeid Gilman MD [facility] [address] [address] 08/11/2024 10:19:21 08/11/2024 11:42:38 Cirrhosis of liver 64109699 K74.60 Constipation 06534561 K5 9.00 Thrombocyt openic disorder 531817629 D69.6 Superior m esenteric vein thrombosis 189867116 K55.059 History of gastrointestinal bleed 909526554 Z87.19 Gastroesop hageal reflux disease without esophagitis 582483743 K21.9 Abdominal bloating 00748 9008 R14.0 Hepatic encephalopathy 82911451 K76.82 Ascites 504059405 R18.8 [id number] Saeid Gilman MD [facility] [address] [address] 10/13/2024 08:57:09 10/13/2024 09:43:50 Cirrhosis of liver 82974495 K74.60 Constipation 05037991 K5 9.00 Thrombocyt openic disorder 503299501 D69.6 Superior m esenteric vein thrombosis 813467195 K55.059 History of gastrointestinal bleed 932600750 Z87.19 Gastroesop hageal reflux disease without esophagitis 796866887 K21.9 Abdominal bloating 38287 9008 R14.0 Hepatic encephalopathy 47731034 K76.82 Ascites 434485276 R18.8 [id number] Saeid Gilman MD [facility] [address] [place] [address] 02/09/2025 09:08:06 02/09/2025 09:52:00 Cirrhosis of liver 58584449 K74.60 Constipation 77872120 K5 9.00 Thrombocyt openic disorder 504598865 D69.6 Superior m esenteric vein thrombosis 775033162 K55.059 History of gastrointestinal bleed 768887520 Z87.19 Gastroesop hageal reflux disease without esophagitis 702034228 K21.9 Abdominal bloating 69546 9008 R14.0 Hepatic encephalopathy 57389253 K76.82 Ascites 373927076 R18.8 Alcoholic cirrhosis 4200 47828 K70.31 Health Concerns Section Related Observation LastModified by Organization Detai ls LastModified Time None Recorded Concern Status LastModified by Organization Details LastModified Time None Recorded Advance Directives Directive None Recorded Payers Insurance Date Sequence Insurance Name Policy Number Policy Hidalgo Covered Member ID Hidalgo Member ID Guarantor Name 10/13/2024 2 [facility] [employer] - [email or web address] [place] ([place]) Halie Banda [id number] Solo Ambrose 08/12/2024 1 [place] Halie Banda [id number] Solo Ambrose 02/06/2025 1 [place] Solo Ambrose [id number] Solo Ambrose 02/06/2025 2 [place] [id number] Solo Ambrose [id number] Solo Ambrose Notes Date Note Type [...] as 16. He was seeing hemat[place] in [place] and was placed on steroids which [...] improved with bowel movements. Pablito Mccarthy PA-C [address] , [place], [address], [place] & [place] 06/25/2023 10:56:47 07/23/2023 text/html PREVIOUS ( 3): [...] as 16. He was seeing hemat[place] and was placed on steroids which [...] further disposition of care. Pablito Mccarthy PA-C [address] [facility], [place], [address], [place] - [facility] - [place] & [place] 07/23/2023 18:04:40 08/11/2024 text/html PREVIOUS ( 3): [...] as 16. He was seeing hematology in [place] and was placed on steroids which [...] Sleep cycle is altered. Saeid Gilman MD [address], [place], [address], [place] & [place] 08/11/2024 12:24:41 10/13/2024 text/html PREVIOUS ( 3): [...] as 16. He was seeing [place] and was placed on steroids which [...] He otherwise feels well. Saeid Gilman MD [address], [place], [address], [place] [facility] [place] & [place] 10/13/2024 10:41:59 02/09/2025 text/html PREVIOUS ( 3): [...] as 16. He was seeing [place] and was placed on steroids which [...] increase in abdominal girth. Saeid Gilman MD [address], [place], [address], [facility] - [facility] - [place] & [place] 02/09/2025 10:06:18
--- OUTSIDE RECORDS SUMMARY | 2025-05-19 08:30 | XMS_ITS | Data Portability ---
Author Organization [facility] Address [address] [place] [address] Assessment Encounter Date Assessment Date Assessment LastModified [...] Dr. Ortiz who is an orthopedic in [place]. Patient states that Dr. Ortiz said he was not a good candidate for surgery at this time due to his low platelet count. Dr. Ortiz has suggested that patient come to [facility] pain management for evaluation for genicular nerve [...] and worsens his discomfort. Vernon number is [phone]. Vernon has been reviewed and is appropriate [...] Ortiz Orthopedic office prior to referral to [facility] pain management for genicular nerve blocks Plan: [...] Procedures sacroiliac joint injection (PROC) 2022 023 [email or web address] Not available 3 08:23:47 genicular nerve block (PROC) 2022 023 CARO Not available 4 05:01:07 Surgeries None recorded. Imaging None recorded. Medication Orders None recorded. Patient TargetsNo targets recorded. Patient Instructions Encounter Date Encounter Id Patient Instructions Last Modified By Organization Details Last Modified Time 09/07/2023 [id number] back pain: care instructions abux Not available [...] Organization Details Recorded Time Osteoarthritis of knee 880172310 Active 2022 Jac Ramos MD [address], [address], [place] - [facility] 3 09:51:28 Degeneration of lumbar intervertebral disc 53007711 Active 2022 Jac Ramos MD [address], [address], [place] [facility] 3 09:51:29 Inflammation of sacroiliac joint 53004476 Active 2022 Jac Ramos MD [address], [address], [place] [facility] 3 09:51:30 Problem Notes None recorded. Procedures Surgical History Date Name Laterality Status Provider Name and Address Organization Details Recorded Time 3 Diagnostic SI Joint Injection Under Fluoroscopy completed Jac Ramos MD [address] [facility], [place], [address], [place] - [facility] 10/23/2023 01:16:06 3 Genicular Nerve Block completed Jac Ramos MD [address] [facility], [place], [address], [place] [facility] 10/08/2023 09:47:45 [...] % 97 % 185.42 cm 30.6 kg/m2 451348. 43 g 76 /min 136/84 mm[Hg] TRENA BRANCH [place] - [facility] 3 09:46:28 Date Recorded Body height Body mass index (BMI) Body weight Oxygen saturation Oxygen saturation in Arterial blood by Pulse oximetry Heart rate Systolic And Diastolic Provider Name and Address Organization Details Last Updated DateTime 3 185.42 cm 30.6 kg/m2 943433. 43 g 97 % 97 % 69 /min 138/78 mm[Hg] TRENA BRANCH [place] - [facility] 3 08:39:30 Date Recorded Body height Body mass index (BMI) Body weight Oxygen saturation Oxygen saturation in Arterial blood by Pulse oximetry Heart rate Systolic And Diastolic Provider Name and Address Organization Details Last Updated DateTime 3 185.42 cm 30.6 kg/m2 068661. 43 g 97 % 97 % 76 /min 124/79 mm[Hg] TRENA BRANCH [place] [facility] 3 09:10:16 Social History Question Answer Notes LastModified by Network[employer] Details LastModified Time Tobacco Smoking Status Never Smoker TRENA BRANCH null, [place] - [facility] 09/04/2023 08:56:07 In The 14 Days Before Symptom Onset, Have You Had Close Contact With A Laboratory-confirm ed COVID-19 While That Case Was Ill? No [email or web address] Information n ot available 09/04/2023 In The 14 Days Before Symptom Onset, Have You Had Close Contact With A Person Who Is Under Investigation For COVID-19 While That Person Was Ill? No [email or web address] Information not available 09/04/2023 Have You Been To An Area Known To Be High Risk For COVID-19? No [email or web address] Information not available 09/04/2023 Sex: Unknown Functional Status Question Answer Note LastModified by Organizat ion Details LastModified Time Do you use any illicit or recreational drugs? No [email or web address] Information not available 09/04/2023 Do you or have you ever used any other forms of tobacco or nicotine? No Information not available 09/04/2023 What is your level of alcohol consumption? None Information not available 09/04/2023 Are you currently employed? Yes Information not available 09/04/2023 Mental Status None recorded. Family History Nothing Reported Notes:Cancer Diabetes Hyperl ipidemia Hypertension Medical History Condition Response Coronary Artery Disease Y Gout N Hernia N Head Trauma/Injury N Depression N COPD N Anxiety Disorder N Arthritis N Acid Reflux (GERD) N Cancer N Stroke N Back Injury N High Cholesterol N Liver Disease N Headaches N Fibromyalgia N Kidney Disease N Thyroid Problems N Anemia N Ulcers N Heart Attack (MS) N Diabetes Y Bleeding Disorder N Tuberculosis N AIDS/HIV N Asthma N Substance Abuse N Hepatitis N Heart Disease Y Hypertension Y Osteoporosis N Past Encounters Encounter ID Performer Location Encounter Start Date Encounter Closed Date Diagnosis/Indication Diagnosis SNOMED-CT Code Diagnosis ICD10 Code Diagnosis Note [id number] Jac Ramos MD [address] [place] [address] 3 09/07/2023 09:33:07 09/07/2023 10:28:51 Knee pain 05061730 M25.562 Osteoarthr itis of knee 610244583 M17.9 Inflammati on of sacroiliac joint 17140936 M46.1 [id number] Jac Ramos MD [address] [place] [address] 3 10/08/2023 08:30:42 10/08/2023 09:50:19 Osteoarthritis of knee 016535032 M17.9 Degenerati on of lumbar intervertebral disc 89864795 M51.36 Inflammati on of sacroiliac joint 65233468 M46.1 [id number] Jac Ramos MD [address] [place] [address] 3 10/22/2023 08:36:44 10/22/2023 10:19:22 Degeneration of lumbar intervertebral disc 10399872 M51.36 Osteoarthr itis of knee 426640554 M17.9 Health Concerns Section Related Observation LastModified by Organization Detai ls LastModified Time None Recorded Concern Status LastModified by Organization Details LastModified Time None Recorded Advance Directives Directive None Recorded Payers Insurance Date Sequence Insurance Name Policy Number Policy Hidalgo Covered Member ID Hidalgo Member ID Guarantor Name 10/19/2023 1 [place] [id number] Solo Ambrose [id number] Solo Ambrose Notes Date Note Type [...] Related:no Working:no Jac Ramos MD [address], [address], [place] [facility] 09/07/2023 11:21:56 [...] (Self Pay) Jac Ramos MD [address], [address], [facility] 10/08/2023 09:59:09 10/22/2023 [...] Joint Inj Jac Ramos MD [address], [address], [place] [facility] 10/23/2023 01:17:37
[2025-05-19] MEDS: IRON SUCROSE COMPLEX 200 MG in 0.9 % SODIUM CHLORIDE 100 ML 220 MG IV (08:34)
[2025-05-19 08:40] VITALS: BP 135/80; PULSE 58; RESP 17; O2SAT 100
[2025-05-19 09:10] VITALS: BP 130/78; PULSE 60; RESP 17
== END 2025-05-19 09:20 | disposition home or self-care (01) ==
LOC: INF 08:27
PROVIDERS: PCP Family Medicine; Visit Provider Internal Medicine Medical Oncology
DX: D64.9 Anemia, unspecified (principal); D69.6 Thrombocytopenia, unspecified; D69.3 Immune thrombocytopenic purpura
CPT/HCPCS: 96365; J1756

== ENCOUNTER 2025-05-22 08:22 | Outpatient (CLI) | payer MEDICARE, BC, SELFPAY ==
--- OUTSIDE RECORDS SUMMARY | 2024-09-27 06:45 | XMS_ITS ---
Author Organization [facility] Address 1210 [facility] [address] [place] [phone] Care Team Providers Care Behavioral Science Chair Name Role Phone Pasquale Girard Primary Care Provider [phone] Perera Lana Unavailable [phone] Allergies No Known Allergies Results Component Value Reference Range Notes P-Culture, Wound Aerobic w/G jojo Stain Reviewed date:10/01/2024 12:10:32 PM Interpretation: Performing Lab: Notes/Report: Test performed by [employer] [address] , [address], [place] [address] Jong Schneider MD, Lighting Specialist CLIA: [id number] Specimen Source Leg - Lower Right Leg [...] day(s) Active Santyl 250 UNIT/GM 1 application Gaming Manager ally Once a day 05/04/2024 Active Spironolactone [...] 09/27/2024 Active Mupirocin 2 % 1 application Gaming Manager ally qd; Duration: 30 days 09/27/2024 Active Vital Signs Blood pressure systolic 130 mm Hg 09/27/20 24 Blood pressure diastolic 74 mm Hg 024 Heart Rate 87 /min 09/27/2024 Height 74 in 09/27/2024 Weight 224.7 lbs 09/27/2024 BMI 28.85 kg/m2 09/27/2024 Encounters Encounter Location Date Provider Diagnosis [facility] [address] [facility] [address] [place] [phone] 09/27/2024 Lana Perera Cellulitis of right leg [...] day(s) 09/27/2024 Mupirocin 2 % 1 application Gaming Manager ally qd; Duration: 30 days 09/27/2024 Treatment Notes Assessment Notes Cellulitis of right leg elevate the leg as much as possible Wound of right lower extremi ty, subsequent encounter keep wound dry with showering; apply mupirocin around edges of the wound ; keep covered Next Appt Details Follow Up: 1 Week, Reason: Progress Notes * Solo AMBROSEDOB:[birth year] (65 yo M)Acc No.[id number]:09/27/2024 Progress Notes Patient: Solo HERNANDEZ Provider: CHARLES Villegas :1960 A ge:64 Y S ex:Male Date:09/27/2024 Address:[address] [place] [address] , [facility] y , [id number] Pcp:Pasquale Girard Subjective: * Chief Complaints: * 1 . Leg wound possible infection. * HPI: D ermatology: 64 year old male presents with c/o ulcer. c/o redness.? c/o Wound P t complains of lower rt leg wound. Pt had been going to [facility] wound clinic but stopped because wound [...] C oronary Artery Disease, LT Heart Cath, [facility] 06/2019, Hypertension, A Fib, Hyperlipidemia, Gout, ETOH abuse, Abnormal LFT's, Bilateral Inguinal Hernia, Diastolic Dysfunction, Echo, 09/2019, Osteoarthritis, anemia/GI bleed April 2023, Thrombocytopenia, s/p Heme/Onc evaluation at [facility], cirrhosis, s/p GI evaluation with Dr. [...] * Images: Billing Information: * Visit Code: 39724 Office Visit, Est Pt., Level 4. * Procedure Codes: G2211 Complex e/m visit add on. * Electronic signature of Viridiana Perera APRN on 05/22/2025 at 08:26 AM EDT Sign off status: Pending * Provider: CHARLES Villegas Date: 11/27/2023 Generated for Azeb gill/Hudson/lAisitting on: 0 05/22/2025 08:26 AM EDT History and Physical Notes * [...] leg wound. Pt had been going to [facility] wound clinic but stopped because wound [...]
--- OUTSIDE RECORDS SUMMARY | 2024-10-04 07:15 | XMS_ITS ---
Author Organization [facility] Address 1210 [facility] [address] [place] [phone] Care Team Providers Care Enrollment Management Coordinator Name Role Phone Pasquale Girard Primary Care Provider Lana Perera Unavailable [phone] Allergies No Known Allergies REASON FOR VISIT 1 week Medications Medication SIG (Take, Route, Frequency, Duration) Notes Start Date End Date Status Xarelto 15 MG 1 tablet with food O rally Once a day; Duration: 30 day(s) Active Silvadene 1 % 1 application Staff Accountant ally Once a day; Duration: 30 days 10/04/2024 Active Spironolactone 50 MG 1 tablet Orally Two times a day; Duration: 30 days Active Bisoprolol Fumarate 10 MG 1 tablet Orall y Once a day; Duration: 30 day(s) Active Mupirocin 2 % 1 application Staff Accountant ally qd; Duration: 30 days 09/27/2024 Active levoFLOXacin 500 MG 1 tablet Orally Once a day Active Vital Signs Blood pressure systolic 130 mm Hg 10/04/20 24 Blood pressure diastolic 80 mm Hg 024 Heart Rate 62 /min 10/04/2024 Height 74 in 10/04/2024 Weight 229.2 lbs 10/04/2024 BMI 29.42 kg/m2 10/04/2024 Encounters Encounter Location Date Provider Diagnosis [facility] [address] [place] [phone] 10/04/2024 Lana Perera Cellulitis of right leg [...] Date Notes Silvadene 1 % 1 application Staff Accountant ally Once a day; Duration: 30 days [...] * Solo AMBROSEDOB:[birth year] (65 yo M)Acc No.[id number]:10/04/2024 Progress Notes Patient: Solo HERNANDEZ Provider: CHARLES Villegas :1960 A ge:64 Y S ex:Male Date:10/04/2024 Address:[address] [place] [address] , [facility] , [id number] Pcp:Pasquale Girard Subjective: * Chief Complaints: * [...] C oronary Artery Disease, LT Heart Cath, [facility] 06/2019, Hypertension, A Fib, Hyperlipidemia, Gout, ETOH abuse, Abnormal LFT's, Bilateral Inguinal Hernia, Diastolic Dysfunction, Echo, 09/2019, Osteoarthritis, anemia/GI bleed April 2023, Thrombocytopenia, s/p Heme/Onc evaluation at [facility], cirrhosis, s/p GI evaluation with Dr. [...] Temp:97.2, BP:130/80, HR:62, O2 Sat:100% on RA, Nurse:[facility], Ht: 74, BMI:29.42. * Examination: G eneral [...] * Images: Billing Information: * Visit Code: 59083 Office Visit, Est Pt., Level 3. * Procedure Codes: 94976 PULSE OX. G2211 Complex e/m visit add on. * Electronic signature of Viridiana Perera APRN on 05/22/2025 at 08:27 AM EDT Sign off status: Pending * Provider: CHARLES Villegas Date: 1 12/05/2023 Generated for Azeb gill/Hudson/Corrie on: 0 05/22/2025 08:27 AM EDT History and Physical Notes * [...]
--- OUTSIDE RECORDS SUMMARY | 2024-11-17 06:00 | XMS_ITS ---
Author Organization Jannie Address 1210 [facility] [address] [place] [phone] Care Team Providers Care Casting Operator Name Role Phone Pasquale Girard Primary Care Provider [phone] Allergies No Known Allergies REASON FOR [...] Encounter Location Date Provider Diagnosis Zander 1210 [facility] [address] [place] [phone] 11/17/2024 Pasquale Girard Pre-op exam Z01.818 ; Arthritis of left knee M17.12 ; Anemia, unspecified type D64.9 ; Thyromegaly E01.0 ; Coronary artery disease involving [place] coronary artery of [place] heart without angina pectoris I25.10 ; Type 2 diabetes mellitus without complication, unspecified whether jail insulin use E11.9 ; Mixed hyperlipidemia E78.2 [...] - E01.0) 11/17/2024 Coronary artery disease involving [place] coronary artery of [place] heart without angina pectoris (ICD-10 - I25.10) 11/17/2024 Type 2 diabetes mellitus without complication, 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 :1960 A ge:64 Y S ex:Male Date:11/17/2024 Address:[address] [place] [address] , [facility] y , [id number] Subjective: * Chief Complaints: * 1 . [...] oronary Artery Disease, LT Heart Cath, [facility] 06/2019, Hypertension, A Fib, Hyperlipidemia, Gout, ETOH abuse, Abnormal LFT's, Bilateral Inguinal Hernia, Diastolic Dysfunction, Echo, 09/2019, Osteoarthritis, anemia/GI bleed April 2023, Thrombocytopenia, s/p Heme/Onc evaluation at [facility], cirrhosis, s/p GI evaluation with [...] E01.0? 5. C oronary artery disease involving [place] coronary artery of [place] heart without angina pectoris - I25.10 6 . 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 M [...] * Images: Billing Information: * Visit Code: 29085 Office Visit, Est Pt., Level 4. * Procedure Codes: G2211 Complex e/m visit add on. * Electronic signature of Abbey Girard MD on 05/22/2025 at 08:26 AM EDT Sign off status: Pending * Provider: Sofia Girard M.D. Date: 0 11/17/2024 Generated for Printi ng/Faskyeg/eTransmitting on: 0 05/22/2025 08:26 AM EDT History [...]
--- OUTSIDE RECORDS SUMMARY | 2025-05-22 08:26 | XMS_ITS | Clinical Summary ---
Author Organization Healthcare Address [address] [place] [address] Care Team Providers Care Yarn Texturing Machine Operator Name Role Phone Pasquale Girard MD Primary Care Provider [phone] Allergies No known active allergies Medications bisoprolol [...] Influenza, seasonal, injectable 08/19/2021 Moderna COVID-19 Vaccine (Product Designer) 12+ years ,12/27/2020 Social History Tobacco Use [...] - Risk 60-74 years 1-dose series) 2019 [id number] Vaccine (3 - season) 2024 01/24/2021, 12/27/2020 [...] ORDERABLES Final Resu lt [facility] [address] [place] [address] from Last 3 Months or Most Recently Relevant to Health Maintenance [place] [address] Advance Directives * Full Code (Latest Code Status on File) Date Activated Date Inactivated Comments 08/01/2023 3:26 PM 08/06/2023 6:04 PM Question Answer Comments Patient has decision-making capacity? Yes Care Teams Yarn Texturing Machine Operator Relationship Specialty Start Date End Date Pasquale Girard MD [address] [facility] [address] [place] [address] PCP - General 5/14/21
--- OUTSIDE RECORDS SUMMARY | 2025-05-22 08:26 | XMS_ITS | Clinical Summary ---
Author Organization DANIEL LILA OD Address [facility] [address] Phone Care Team Providers Care Diffusion Operator Name Role Phone Unavailable Primary Care [...]
--- OUTSIDE RECORDS SUMMARY | 2025-05-22 08:27 | XMS_ITS | Clinical Summary ---
Author Organization [facility] Address [address] [place] [address] Care Team Providers Care Control Systems Specialist Name Role Phone Pasquale Girard MD Primary Care Provider + [phone] Allergies No known active allergies Medications losartan [...] 08/02 Potentially Unsafe Housing Conditions Not on janiec e 08/14/2023 Family and Community Support Answer [...] VACCINE 08/02/2025 Medical Devices Implanted Type Area Registered Nurse Renal Device Identifier Shelf Expiration Date Model / Serial / Lot Cmt Bone [id number] 20gm - [id number] Implanted:Qt y: 1 on 02/19/2022 by Sam Massey MD at [facility] Implant Right: Shoulder DEPUY [id number] 12/30/2022 [id number] / / [id number] Sut Fw #2 W/Tpr Ndl 1/2 Cir 38in 97cm 26.5mm Blair - [id number] Implanted:Qt y: 3 on 02/19/2022 by Sam Massey MD at [facility] Implant Right: Shoulder ARTHREX 03/01/2026 [id number] / / [id number] Saravanan Aug Aequalis Performplus Cortiloc Peg Cocr 15d Lg Rt - [id number] - [id number] Implanted:Qt y: 1 on 02/19/2022 by Sam Massey MD at [facility] Implant Right: Shoulder TORNIER [id number] 09/10/2025 [id number] / [id number] / Nucleus Shldr Simpliciti Sz2 - [id number] - [id number] Implanted:Qt y: 1 on 02/19/2022 by Sam Massey MD at [facility] Implant Right: Shoulder TORNIER 11/26/2026 [id number] / [id number] / NA Hd Hum/Shldr Simpliciti [id number] - [id number] - [id number] Implanted:Qt y: 1 on 02/19/2022 by Sam Massey MD at [facility] Implant Right: Shoulder TORNIER 08/28/2026 [id number] / [id number] / NA Shldr Simpliciti Nucleus Hd Saravanan Tornier - [id number] Implanted:Qt y: 1 on 02/19/2022 by Sam Massey MD at [facility] Implant Right: Shoulder TORNIER CAPSHLDRHDGLENTO R N / / Insurance [facility] BLUE CROSS BLUE SHIELD PPO Advance Directives * CPR (Attempt to Resuscitate) (Latest Code Status on File) Date Activated Date Inactivated Comments 02/19/2022 6:32 PM 02/20/2022 2:33 PM Question Answer Comments Code Status (Patient has no pulse and is not breathing): CPR (Attempt to Resuscitate) Medical Interventions (Patie nt has pulse or is breathing): Full Level Of Support Discussed With: Patient Care Teams Control Systems Specialist Relationship Specialty Start Date End Date Pasquale Girard MD [address] [place] [address] [place] [address] PCP - General Family Medicine 01/14/22
--- OUTSIDE RECORDS SUMMARY | 2025-05-22 08:27 | XMS_ITS | Encounter Summary ---
Author Organization Healthcare Address [address] 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 Name Role Phone Pasquale Girard MD Primary Care Provider [phone] Reason for Referral * Consultation (Routine) - Authorized Specialty Diagnoses / Procedures Referred By Haritha garcia Referred To Contact Orthopaedic Surgery Diagnoses Osteoarthritis of left knee, unspecified osteoarthritis type Wilner Ortiz DO [address] [place] [address] Phone: tel: fax: Jimbo Grover MD [address] [address] Phone: tel: fax: Referral ID Status Reason Start Date Expiration Date V isits Requested Visits Authorized [id number] Authorized 07/22/2024 01/21/2026 1 1 Encounter Details Date Type Department Care Team (Latest Contact Info) Description 07/22/2024 Community [facility] [address] [place] [address] Wilner Ortiz DO [address] [place] [id number] Osteoarthritis of left knee, unspecified osteoarthritis type [...] Primary documented in this encounter Care Teams M1A1 Tank Crewman Relationship Specialty Start Date End Date Pasquale Girard MD [address] [place] [address] PCP - General 03/15/21 documented as of this encounter
--- OUTSIDE RECORDS SUMMARY | 2025-05-22 08:27 | XMS_ITS | Patient Health Record ---
[facility] [address] [facility] 36 [facility] [address] [place] [id number] Care Team Providers Care Clock And Watch Hands Painter Name Role Phone Pasquale Girard Primary Care Provider [phone] Trever Lana Unavailable [phone] Allergies No Known Allergies Results Component Value Reference Range Notes MRI : Brain with and w/o con [...] date:07/01/2024 10:54:38 AM Interpretation: Performing Lab: Notes/Report: CT scan [...] AGRATIO 0.8 1.1-1.8 ALP 78 38-126 U/L Hemoccult- IFOBT (in house) Reviewed date:06/20/2024 10:12:57 [...] AGRATIO 1.1 1.1-1.8 ALP 72 38-126 U/L P-Culture, Wound Aerobic w/G jojo Stain Reviewed date:10/01/2024 12:10:32 PM Interpretation: Performing Lab: Notes/Report: Test performed by [facility], [address] , [address], [place] [address] Jong Schneider MD, Horticultural Farm Manager CLIA: [id number] Specimen Source Leg - Lower Right Leg [...] Tobramycin S Trimeth/Sulfa S S=SUSCEPTIBLE I=INTERMEDIATE R=RESISTANT RPRT Reviewed date:07/01/2024 10:55:32 AM Interpretation: Performing [...] utilized, such as Treponema pallidum (Syphilis) Screening [place] (797360) or Rapid Plasma Reagin (RPR) Test With Reflex to Quantitative RPR and Confirmatory Treponema pallidum Antibodies (149586). Performed at: [address] [id number] Air Conditioning Manager: Nuno Otto PhD, Phone: [phone] H-CBC Reviewed date:06/15/2024 11:15:50 AM Interpretation:06/15/2024 OV [...] AGRATIO 1.1 1.1-1.8 ALP 78 38-126 U/L FOBT - Inhouse Reviewed date:06/22/2024 11:54:00 AM [...] Status Risk Notes Problem Nondependent alcohol abuse (489859102) EtOH [Ethanol] abuse NOS (305.00) Active confirmed Problem Abnormal liver function (29612159) Abnormal liver function study (794.8) Active confirmed Problem Essential hypertension (00872158) Essential (primary) hypertension (I10) Active confirmed Problem Hypertension (88307669) HTN (hypertension) (I10) Active confirmed Problem Vitamin D deficiency (03268851) Vitamin D deficiency (E55.9) Active confirmed Problem Hypertriglyceridemia (390595031) Hypertriglyceridemia (E78.1) Active confirmed Problem Abnormal results of liver function studies (451461297) Abnormal results of liver function studies (R94.5) Active confirmed Problem Mixed hyperlipidemia (669023014) Mixed hyperlipidemia (E78.2) Active confirmed Problem Mitral valve disorde r (61817360) Nonrheumatic mitral (valve) insufficiency (I34.0) Active confirmed Problem Ventricular prematur e depolarization (396260676) Ventricular premature depolarization (I49.3) Active confirmed Problem Gout (58228352) Gout, unspecifie d (M10.9) Active confirmed Problem Male erectile disorder (115186710) Male erectile disorder (N52.9) Active confirmed Problem Chronic pain (95444217) Other chronic pain (G89.29) Active confirmed Problem Atherosclerosis of coronary artery without angina pectoris (092659588099388) Atherosclerosis of [place] coronary artery of [place] heart without angina pectoris (I25.10) Active confirmed Problem Thrombocytopenia (578308821) Thrombocytopenia (D69.6) Active confirmed Problem Atherosclerotic hear t disease of g[place] coronary artery without angina pectoris (256554827896503) Coronary artery disease involving [place] coronary artery of [place] heart without angina pectoris (I25.10) Active confirmed Problem Gastroesophageal reflux disease (663539174) Gastroesophageal reflux disease, esophagitis presence not specified (K21.9) Active confirmed Problem Leukocytosis (044794571) Leukocytosis, unspecified type (D72.829) Active confirmed Problem Anemia (356165447) Anemia, unspe cified type (D64.9) Active confirmed Problem Alcoholism (1408758) Alcoholism (F10.20) Active confirmed Problem Localized, primary osteoarthritis of the shoulder region (901955850) 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) Active confirmed Problem Sciatica (02511987) Right-sided low back pain with right-sided sciatica, unspecified chronicity (M54.41) Active confirmed Problem Gastrointestinal hemorrhage (25867204) Gastrointestinal hemorrhage, unspecified gastrointestinal hemorrhage type (K92.2) Active confirmed Problem Thyromegaly (5280605) Thyromegaly (E01.0) Active confirmed Problem Acute on chronic diastolic heart failure (615602461) Acute on chronic diastolic congestive heart failure (I50.33) Active confirmed Problem Arthritis of left knee (9351739783884585) Arthritis of left knee (M17.12) Active confirmed Problem Type II diabetes mellitus without complication (442808316) Type 2 diabetes mellitus without complication, unspecified whether [facility] insulin use (E11.9) Active confirmed Problem Diastolic dysfunctio n (7036325) Diastolic dysfunction (I51.89) Active confirmed Problem Bradyarrhythmia (520217358) Bradyarrhythmia (I49.8) Active confirmed Problem Cardiac arrhythmia (614282575) Bigeminy (I49.8) Active confirmed Problem Chronic idiopathic thrombocytopenic purpura (disorder) (72017059) Idiopathic thrombocytopenic purpura (ITP) (D69.3) Active confirmed Vital Signs Heart Rate 54 /min 11/17/2024 Blood pressure diastolic 74 mm Hg 11/17/2024 Height 74 in 11/17/2024 Blood pressure systolic 118 mm Hg 11/17/2024 Weight 227.8 lbs 11/17/2024 BMI 29.24 kg/m2 11/17/2024 Encounters Encounter Location Date Provider Diagnosis [facility] [address] [facility] [address] [place], [place] [id number] 06/09/2024 Pasquale [place] Umbilical hernia wit hout obstruction and without gangrene K42.9 [facility] [address] [place], [place] [id number] 06/15/2024 Pasquale [place] Anemia, unspecified type D64.9 and Heartburn R12 [facility] [address] [place], [place] [id number] 06/20/2024 Pasquale [place] [facility] [address] [place], [place] [id number] 06/22/2024 Pasquale [place] Confusion R41.0 ; Anemia, unspecified type D64.9 ; Peripheral edema R60.0 and Heme positive stool R19.5 [facility] [address] [place], [place] [id number] 07/08/2024 Pasquale [place] Intermittent confusi on R41.0 and Dizziness R42 [facility] [address] [place], [place] [id number] 09/27/2024 Lana Perera Cellulitis of right leg L03.115 and Wound of right lower extremity, subsequent encounter S81.801D [facility] [address] [place], [place] [id number] 10/04/2024 Lana Perera Cellulitis of right leg L03.115 and Wound of right lower extremity, subsequent encounter S81.801D [facility] [address] [place], [place] [id number] 11/17/2024 Pasquale [place] Pre-op exam Z01.818 ; Arthritis of left knee M17.12 ; Anemia, unspecified type D64.9 ; Thyromegaly E01.0 ; Coronary artery disease involving g[place] coronary artery of [place] heart without angina pectoris I25.10 ; Type 2 diabetes mellitus without complication, unspecified whether long term care pharmacist insulin use E11.9 ; Mixed hyperlipidemia E78.2 ; HTN (hypertension) I10 ; Gastroesophageal reflux disease, esophagitis presence not specified K21.9 ; Gout, unspecified M10.9 and Open wound of right lower extremity, subsequent encounter S81.801D [facility] [address] [place], [place] [id number] 05/23/2024 Pasquale [place] Thrombocytopenia D69 .6 ; Mixed hyperlipidemia E78.2 and Peripheral edema R60.0 [facility] [address] [place], [place] [id number] 05/24/2024 Pasquale [place] Creek [facility] [address] [place], [place] [id number] 06/13/2024 Pasquale [place] Anemia, unspecified type D64.9 and Peripheral edema R60.0 [facility] [address] [place], [place] [id number] 06/20/2024 Pasquale [place] Creek [facility] [address] [place], [place] [id number] 06/22/2024 Pasquale [place] Creek [facility] [address] [place], [place] [id number] 06/29/2024 Pasquale [place] Confusion R41.0 ; Anemia, unspecified type D64.9 and Cramp in limb R25.2 [facility] [address] [place], [place] [id number] 07/01/2024 Pasquale [place] Creek [facility] [address] [place], [place] [id number] 07/18/2024 Pasquale [place] Creek [facility] [address] [place], [place] [id number] 08/18/2024 Pasquale [place] [facility] [address] [place] [id number] 09/30/2024 Lana Perera Wound of right lower extremity, subsequent encounter S81.801D [facility] [address] [facility] [address] [place] [id number] 04/07/2025 Pasqualejessica Girard Assessments Encounter Date Diagnosis (ICD Code) Assessment Notes Treatment Notes Treatment Clinical Notes Section Notes 06/09/2024 Umbilical hernia without obstruction and without gangrene (ICD-10 - K42.9) 06/13/2024 Anemia, unspecified type (ICD-10 - D64.9) 06/13/2024 Peripheral edema (ICD-10 - R60.0) 06/15/2024 Heartburn (ICD-10 - R12) 06/15/2024 Anemia, unspecified type (ICD-10 - D64.9) 06/22/2024 Confusion (ICD-10 - R41.0) Sympotms have resolved, unclear etiology 06/29/2024 Anemia, unspecified type (ICD-10 - D64.9) [...] edges of the wound ; keep covered 05/23/2024 Thrombocytopenia (ICD-10 - D69.6) 06/22/2024 Anemia, unspecified type (ICD-10 - D64.9) Patient to follow up with Dr. Bermudez tomorrow 06/29/2024 Confusion (ICD-10 - R41.0) 11/17/2024 Pre-op exam (ICD-10 - Z01.818) PATIENT IS CLEARED FOR SURGERY, BUT HE IS AT LEAST AT MODERATE RISK FOR PERIOPERATIVE AND POSTOPERATIVE COMPLICATIONS. 11/17/2024 Arthritis of left knee (ICD-10 - M17.12) 11/17/2024 Anemia, unspecified type (ICD-10 - D64.9) 06/29/2024 Cramp in limb (ICD-10 - R25.2) 06/22/2024 Peripheral edema (ICD-10 - R60.0) 05/23/2024 Mixed hyperlipidemia (ICD-10 - E78.2) 06/22/2024 Heme positive stool (ICD-10 - R19.5) 05/23/2024 Peripheral edema (ICD-10 - R60.0) 11/17/2024 Thyromegaly (ICD-10 - E01.0) 11/17/2024 Coronary artery disease involving g[place] coronary artery of [place] heart without angina pectoris (ICD-10 - I25.10) 11/17/2024 Type 2 diabetes mellitus without complication, unspecified whether long term care pharmacist insulin use (ICD-10 - E11.9) 11/17/2024 Mixed [...] Date MEDICARE PART B [address] [address] [place] [phone] [id number] Solo Burch Self - patient is the insured [facility] [address] [place] [address] [id number] Solo Burch Self - patient is the insured Medications Administered Medication Instructions Date of Administration Dosage Notes Depo- Medrol 40 mg/ml 09/01/2016 1 mL Medical (General) History Medical History History ICD Code Coronary Artery Disease, LT Heart Cath, [facility] 06/2019 Hypertension A Fib Hyperlipidemia Gout ETOH abuse Abnormal LFT's Bilateral Inguinal Hernia Diastolic Dysfunction, Echo, 09/2019 Osteoarthritis anemia/GI bleed April 2023 Thrombocytopenia, s/p Heme/Onc evaluatio n at [facility] cirrhosis, s/p GI evaluation with Dr. Alivia batres DVT, Right leg, 2023 Immune Thrombocytopenia Purpura Surgical History Surgery Date(Month/Year) LT Shoulder Replacement 2005 Bilateral inguinal hernia repair 013 Percutaneous Coronary Intervention, 3 St ents Placed 06/2019 Rotator Cuff Tear Repair 02/18/2022 umbilical hernia repair - At 08/2023 Hospitalization History Reason Date(Month/Year)
--- OUTSIDE RECORDS SUMMARY | 2025-05-22 08:27 | XMS_ITS | Data Portability ---
Author Organization [facility] Address [address] [place] [address] Assessment Encounter Date Assessment Date Assessment LastModified [...] Dr. Ortiz who is an orthopedic in [place]. Patient states that Dr. Ortiz said he was not a good candidate for surgery at this time due to his low platelet count. Dr. Ortiz has suggested that patient come to [facility] pain management for evaluation for [...] and worsens his discomfort. Vernon number is [phone]. Vernon has been reviewed and is appropriate [...] Ortiz Orthopedic office prior to referral to [facility] pain management for genicular nerve [...] Procedures sacroiliac joint injection (PROC) 2022 023 [email or web address] Not available 3 08:23:47 genicular nerve block (PROC) 2022 023 CARO Not available 4 05:01:07 Surgeries None recorded. Imaging None recorded. Medication Orders None recorded. Patient TargetsNo targets recorded. Patient Instructions Encounter Date Encounter Id Patient Instructions Last Modified By Organization Details Last Modified Time 09/07/2023 [id number] back pain: care instructions abux Not available [...] Organization Details Recorded Time Osteoarthritis of knee 168020090 Active 2022 Jac Ramos MD [address], [address], [place] [facility] 3 09:51:28 Degeneration of lumbar intervertebral disc 82291574 Active 2022 Jac Ramos MD [address], [address], [place] [facility] 3 09:51:29 Inflammation of sacroiliac joint 09623080 Active 2022 Jac Ramos MD [address], [address], [place] [facility] 3 09:51:30 Problem Notes None recorded. Procedures Surgical History Date Name Laterality Status Provider Name and Address Organization Details Recorded Time 3 Diagnostic SI Joint Injection Under Fluoroscopy completed Jac Ramos MD [address] [facility] [address], [place], [address], [place] [facility] 10/23/2023 01:16:06 3 Genicular Nerve Block completed Jac Ramos MD [address] [facility], [place], [address], [place] [facility] 10/08/2023 09:47:45 [...] % 97 % 185.42 cm 30.6 kg/m2 186684. 43 g 76 /min 136/84 mm[Hg] TRENA BRANCH [place] [facility] 3 09:46:28 Date Recorded Body height Body mass index (BMI) Body weight Oxygen saturation Oxygen saturation in Arterial blood by Pulse oximetry Heart rate Systolic And Diastolic Provider Name and Address Organization Details Last Updated DateTime 3 185.42 cm 30.6 kg/m2 569261. 43 g 97 % 97 % 69 /min 138/78 mm[Hg] TRENA BRANCH [place] [facility] 3 08:39:30 Date Recorded Body height Body mass index (BMI) Body weight Oxygen saturation Oxygen saturation in Arterial blood by Pulse oximetry Heart rate Systolic And Diastolic Provider Name and Address Organization Details Last Updated DateTime 3 185.42 cm 30.6 kg/m2 626884. 43 g 97 % 97 % 76 /min 124/79 mm[Hg] TRENA BRANCH [place] [facility] 3 09:10:16 Social History Question Answer Notes LastModified by [employer] Details LastModified Time Tobacco Smoking Status Never [...] COVID-19 While That Person Was Ill? No [email or web address] Information not available 09/04/2023 Have You Been To An Area Known To Be High Risk For COVID-19? No Information not available 09/04/2023 Sex: Unknown Functional Status Question Answer Note LastModified by Organizat ion Details LastModified Time Do you use any illicit or recreational drugs? No [email or web address] Information not available 09/04/2023 Do you or have you ever used any other forms of tobacco or nicotine? No [email or web address] Information not available 09/04/2023 What is your level of alcohol consumption? None [email or web address] Information not available 09/04/2023 Are you currently employed? Yes [email or web address] Information not available 09/04/2023 Mental Status None recorded. Family History Nothing Reported Notes:Cancer Diabetes Hyperl ipidemia Hypertension Medical History Condition Response Coronary Artery Disease Y Gout N Head Trauma/Injury N Depression N COPD N Anxiety Disorder N Arthritis N Acid Reflux (GERD) N Cancer N Stroke N Fibromyalgia N Headaches N Kidney Disease N Ulcers N Bleeding Disorder N Tuberculosis N AIDS/HIV N Asthma N Substance Abuse N Hepatitis N Hernia N Back Injury N High Cholesterol N Liver Disease N Thyroid Problems N Anemia N Heart Attack (NC) N Diabetes Y Heart Disease Y Hypertension Y Osteoporosis N Past Encounters Encounter ID Performer Location Encounter Start Date Encounter Closed Date Diagnosis/Indication Diagnosis SNOMED-CT Code Diagnosis ICD10 Code Diagnosis Note [id number] Jac Ramos MD [address] [place] [address] [place] [address] 3 09/07/2023 09:33:07 09/07/2023 10:28:51 Knee pain 28601654 M25.562 Osteoarthr itis of knee 670621496 M17.9 Inflammati on of sacroiliac joint 33223403 M46.1 [id number] Jac Ramos MD [address] [place]ERRITT [address] [place] [address] 3 10/08/2023 08:30:42 10/08/2023 09:50:19 Osteoarthritis of knee 691732395 M17.9 Degenerati on of lumbar intervertebral disc 62929559 M51.36 Inflammati on of sacroiliac joint 82205031 M46.1 [id number] Jac Ramos MD [address] [place] [address] 3 10/22/2023 08:36:44 10/22/2023 10:19:22 Degeneration of lumbar intervertebral disc 41137834 M51.36 Osteoarthr itis of knee 105228995 M17.9 Health Concerns Section Related Observation LastModified by Organization Detai ls LastModified Time None Recorded Concern Status LastModified by Organization Details LastModified Time None Recorded Advance Directives Directive None Recorded Payers Insurance Date Sequence Insurance Name Policy Number Policy Hidalgo Covered Member ID Hidalgo Member ID Guarantor Name 10/19/2023 1 [place] [id number] Solo Ambrose [id number] Solo Ambrose Notes Date Note Type [...] Related:no Working:no Jac Ramos MD [address], [address], [place] [facility] 09/07/2023 11:21:56 [...] Genicular Nerve Block, Left Knee (Self Pay) aJc Ramos MD [address], [address], [facility] 10/08/2023 09:59:09 [...] Joint Inj Jac Ramos MD [address], [address], [place] [facility] 10/23/2023 01:17:37
[2025-05-22] MEDS: SODIUM CHLORIDE 0.9% 10ML FLUSH SYRINGE 10 ML IV (08:28)
[2025-05-22] MEDS: IRON SUCROSE COMPLEX 200 MG in 0.9 % SODIUM CHLORIDE 100 ML 220 MG IV (08:29)
[2025-05-22 08:44] VITALS: BP 149/79; PULSE 62; RESP 16; TEMP 36.6; O2SAT 97
[2025-05-22 09:20] VITALS: BP 158/78; PULSE 62; RESP 16; TEMP 36.6; O2SAT 97
== END 2025-05-22 09:20 | disposition home or self-care (01) ==
LOC: INF 08:24
PROVIDERS: PCP Family Medicine; Visit Provider Internal Medicine Medical Oncology
DX: D64.9 Anemia, unspecified (principal); D69.6 Thrombocytopenia, unspecified; D69.3 Immune thrombocytopenic purpura
CPT/HCPCS: 96365; J1756

== ENCOUNTER 2025-06-07 08:47 | Outpatient (CLI) | payer MEDICARE, BC, SELFPAY ==
--- OUTSIDE RECORDS SUMMARY | 2024-10-04 07:15 | XMS_ITS ---
Author Organization [facility]ander Address 1210 [facility] [address] [place] [phone] Care Team Providers Care Photoresist Printer Name Role Phone Pasquale Girard Primary Care Provider Lana Perera Unavailable [phone] Allergies No Known Allergies REASON FOR VISIT 1 week Medications Medication SIG (Take, Route, Frequency, Duration) Notes Start Date End Date Status Xarelto 15 MG 1 tablet with food O rally Once a day; Duration: 30 day(s) Active Silvadene 1 % 1 application Desktop Support Specialist ally Once a day; Duration: 30 days 10/04/2024 Active Spironolactone 50 MG 1 tablet Orally Two times a day; Duration: 30 days Active Bisoprolol Fumarate 10 MG 1 tablet Orall y Once a day; Duration: 30 day(s) Active Mupirocin 2 % 1 application Desktop Support Specialist ally qd; Duration: 30 days 09/27/2024 Active levoFLOXacin 500 MG 1 tablet Orally Once a day Active Vital Signs Weight 229.2 lbs 10/04/2024 Blood pressure systolic 130 mm Hg 10/04/20 24 Blood pressure diastolic 80 mm Hg 024 Heart Rate 62 /min 10/04/2024 Height 74 in 10/04/2024 BMI 29.42 kg/m2 10/04/2024 Encounters Encounter Location Date Provider Diagnosis [facility] [address] [place] [phone] 10/04/2024 Lana Perera Cellulitis of right leg [...] Date Notes Silvadene 1 % 1 application Desktop Support Specialist ally Once a day; Duration: 30 days [...] Appt Details Follow Up: 1 Week, Reason: Provider Name:Pasquale Tapia ry, 06/07/2025 11:00:00 AM, 12[address] [place] [facility] 36 [facility], [address] , [place], [place], [id number], Progress Notes * Solo AMBROSEDOB:[birth year] (65 yo M)Acc No.[id number]:10/04/2024 Progress Notes Patient: Solo HERNANDEZ Provider: CHARLES Villegas :1960 A ge:64 Y S ex:Male Date:10/04/2024 Address:[address] [place] [address] y , [id number] Pcp:Pasquale Girard Subjective: * Chief Complaints: * [...] C oronary Artery Disease, LT Heart Cath, [facility] 06/2019, Hypertension, A Fib, Hyperlipidemia, Gout, ETOH abuse, Abnormal LFT's, Bilateral Inguinal Hernia, Diastolic Dysfunction, Echo, 09/2019, Osteoarthritis, anemia/GI bleed April 2023, Thrombocytopenia, s/p Heme/Onc evaluation at [facility], cirrhosis, s/p GI evaluation with Dr. [...] Temp:97.2, BP:130/80, HR:62, O2 Sat:100% on RA, Nurse:NIKHIL, Ht: 74, BMI:29.42. * Examination: G eneral Examination: General Appearance: NAD, appears healthy, alert, pleasant. H eart: RRR. N eurologic Exam: alert and oriented. S kin: RLE wound with less erythema; wound with drainage. E xtremities: bilateral leg edema. ? Assessment: * Assessment: 1. Bryant bah right leg - L03.115 (Primary) 2 . [...] * Images: Billing Information: * Visit Code: 43746 Office Visit, Est Pt., Level 3. * Procedure Codes: 87595 PULSE OX. G2211 Complex e/m visit add on. * Electronic signature of Viridiana Perera APRN on 06/07/2025 at 08:51 AM EDT Sign off status: Pending * Provider: CHARLES Villegas Date: 1 12/05/2023 Generated for Azeb gill/Hudson/Alisitting on: 0 06/07/2025 08:51 AM EDT History and Physical Notes * [...]
--- OUTSIDE RECORDS SUMMARY | 2024-11-17 06:00 | XMS_ITS ---
Author Organization Jannie Address 1210 [facility] [address] [place] [phone] Care Team Providers Care Set Illustrator Name Role Phone Pasquale Girard Primary Care Provider [phone] Allergies No Known Allergies REASON FOR [...] Location Date Provider Diagnosis [facility] 12[facility] [address] [place] [phone] 11/17/2024 Pasquale Girard Pre-op exam Z01.818 ; Arthritis of left knee M17.12 ; Anemia, unspecified type D64.9 ; Thyromegaly E01.0 ; Coronary artery disease involving [place] coronary artery of [place] heart without angina pectoris I25.10 ; Type 2 diabetes mellitus without complication, unspecified whether retirement insulin use E11.9 ; Mixed hyperlipidemia E78.2 [...] - E01.0) 11/17/2024 Coronary artery disease involving [place] coronary artery of [place] heart without angina pectoris (ICD-10 - I25.10) 11/17/2024 Type 2 diabetes mellitus without complication, unspecified whether long lines operator insulin use (ICD-10 - E11.9) 11/17/2024 Mixed [...] Details Follow Up: as scheduled,and prn, Reason: Provider Name:Pasquale Tapia , 06/07/2025 11:00:00 AM, 12[facility] 36 [facility], [address] , [place], [place], [phone], Progress Notes * Solo AMBROSEDOB:[birth year] (65 yo M)Acc No.[id number]:11/17/2024 Physical Patient: Solo HERNANDEZ Provider: Sofia Girard M.D. :1960 A ge:64 Y S ex:Male Date:11/17/2024 Address:[address] [place], [place] [phone] Subjective: * Chief Complaints: * 1 . [...] Artery Disease, LT Heart Cath, [facility] 06/2019, Hypertension, A Fib, Hyperlipidemia, Gout, ETOH abuse, Abnormal LFT's, Bilateral Inguinal Hernia, Diastolic Dysfunction, Echo, 09/2019, Osteoarthritis, anemia/GI bleed April 2023, Thrombocytopenia, s/p Heme/Onc evaluation at [facility], cirrhosis, s/p GI evaluation with Dr. [...] * Vitals: W t:227.8, Temp:97.6, BP:118/74, HR:54, Nurse:emmanuel, Ht: 74, BMI:29.24. * Examination: G eneral [...] E01.0? 5. C oronary artery disease involving [place] coronary artery of [place] heart without angina pectoris - I25.10 6 . T ype 2 diabetes mellitus without complication, unspecified whether long lines operator insulin use - E11.9 7 . M [...] * Images: Billing Information: * Visit Code: 48729 Office Visit, Est Pt., Level 4. * Procedure Codes: G2211 Complex e/m visit add on. * Electronic signature of Abbey Girard MD on 06/07/2025 at 08:51 AM EDT Sign off status: Pending * Provider: Sofia Girard M.D. Date: 0 11/17/2024 Generated for Azeb gill/Hudson/Alisitting on: 0 06/07/2025 [...]
--- OUTSIDE RECORDS SUMMARY | 2025-06-07 08:51 | XMS_ITS | Clinical Summary ---
Author Organization [facility] Address [address] [place] [address] Care Team Providers Care Second Ride Fare Collector Name Role Phone Pasquale Girard MD Primary Care Provider + [phone] Allergies No known active allergies Medications losartan [...] VACCINE 08/02/2025 Medical Devices Implanted Type Area Bulk Mail Technician Device Identifier Shelf Expiration Date Model / Serial / Lot Cmt Bone Cmw2 20gm - [id number] Implanted:Qt y: 1 on 02/19/2022 by Sam Massey MD at [facility] Implant Right: Shoulder DEPUY [id number] 12/30/2022 [id number] / / [id number] Sut Fw #2 W/Tpr Ndl 1/2 Cir 38in 97cm 26.5mm Blair - [id number] Implanted:Qt y: 3 on 02/19/2022 by Sam Massey MD at [facility] Implant Right: Shoulder ARTHREX 03/01/2026 [id number] / / [id number] Saravanan Aug Aequalis Performplus Cortiloc Peg Cocr 15d Lg Rt - [id number] - [id number] Implanted:Qt y: 1 on 02/19/2022 by Sam Massey MD at [facility] Implant Right: Shoulder TORNIER [id number] 09/10/2025 [id number] / [id number] / Nucleus Shldr Simpliciti Sz2 - [id number] - [id number] Implanted:Qt y: 1 on 02/19/2022 by Sam Massey MD at [facility] Implant Right: Shoulder TORNIER 11/26/2026 [id number] / [id number] / NA Hd Hum/Shldr Simpliciti [id number] - [id number] - [id number] Implanted:Qt y: 1 on 02/19/2022 by Sam Massey MD at [facility] Implant Right: Shoulder TORNIER 08/28/2026 [id number] / [id number] / NA Shldr Simpliciti Nucleus Hd Saravanan Tornier - [id number] Implanted:Qt y: 1 on 02/19/2022 by Sam Massey MD at [facility] Implant Right: Shoulder TORNIER CAPSHLDRHDGLENTO R N / / Insurance [facility] BLUE CROSS BLUE SHIELD PPO [...] Of Support Discussed With: Patient Care Teams Second Ride Fare Collector Relationship Specialty Start Date End Date Pasquale Girard MD [address] [place] [address] PCP - General Family Medicine 01/14/22
--- OUTSIDE RECORDS SUMMARY | 2025-06-07 08:51 | XMS_ITS | Clinical Summary ---
Author Organization [facility] Address [address] [facility] [place] [address] Phone Care Team Providers Care Security Escort Name Role Phone Unavailable Primary Care Provider [...]
--- OUTSIDE RECORDS SUMMARY | 2025-06-07 08:51 | XMS_ITS | Clinical Summary ---
Author Organization [facility] Address [address] [place] [address] Care Team Providers Care Organic Search Lead Name Role Phone Pasquale Girard MD Primary Care Provider [phone] Allergies No known active allergies Medications bisoprolol [...] Influenza, seasonal, injectable 08/19/2021 Moderna COVID-19 Vaccine (Manager Epic) 12+ years ,12/27/2020 Social History Tobacco Use [...] - Risk 60-74 years 1-dose series) 2019 [id number] Vaccine (3 - season) 2024 01/24/2021, 12/27/2020 [...] ORDERABLES Final Resu lt [facility] [address] [place] [address] from Last 3 Months or Most Recently Relevant to Health Maintenance [place] [address] Advance Directives * Full Code (Latest Code Status on File) Date Activated Date Inactivated Comments 08/01/2023 3:26 PM 08/06/2023 6:04 PM Question Answer Comments Patient has decision-making capacity? Yes Care Teams Organic Search Lead Relationship Specialty Start Date End Date Pasquale Girard MD [address] [facility] [address] [place] [address] PCP - General 5/14/21
--- OUTSIDE RECORDS SUMMARY | 2025-06-07 08:51 | XMS_ITS | Patient Health Record ---
[facility] [address] [facility] [address] [place] [id number] Care Team Providers Care Marketing Research Intern Name Role Phone Pasquale Girard Primary Care Provider Lana Perera Unavailable [phone] Allergies No Known Allergies Results Component Value Reference Range Notes RPRT Reviewed date:07/01/2024 10:55:32 AM Interpretation: Performing [...] utilized, such as Treponema pallidum (Syphilis) Screening Loving (805276) or Rapid Plasma Reagin (RPR) Test With Reflex to Quantitative RPR and Confirmatory Treponema pallidum Antibodies (647567). Performed at: [address] [id number] Voip Engineer: Nuno Otto PhD, Phone: [phone] MRI : Brain with and w/o con [...] AM Interpretation: Performing Lab: Notes/Report: H-CMP Reviewed date:06/22/2024 01:55:08 PM Interpretation: Performing [...] Interpretation:06/15 OV Performing Lab: Notes/Report: 06/15 OV FOBT - Inhouse Reviewed date:06/22/2024 11:54:00 AM Interpretation: Performing Lab: Notes/Report: Hemoccult- IFOBT (in house) Reviewed date:06/20/2024 10:12:57 AM Interpretation:Positive Performing Lab: Notes/Report: Positive results positive H-CBC Reviewed date:06/15/2024 11:15:50 AM Interpretation:06/15/2024 OV [...] AGRATIO 1.1 1.1-1.8 ALP 78 38-126 U/L P-Culture, Wound Aerobic w/G jojo Stain Reviewed date:10/01/2024 12:10:32 PM Interpretation: Performing Lab: Notes/Report: Test performed by [facility], [facility] [address] [facility] , [address], [place] [address] Jong Schneider MD, Hot Braider PORSHA: [id number] Specimen Source Leg - Lower Right Leg [...] Tobramycin S Trimeth/Sulfa S S=SUSCEPTIBLE I=INTERMEDIATE R=RESISTANT Medications Medication SIG (Take, Route, Frequency, Duration) Notes Start Date End Date Status Spironolactone 50 MG TAKE 1 TABLET BY [facility] TWICE A DAY; Duration: 90 Active Bisoprolol [...] Status Risk Notes Problem Nondependent alcohol abuse (267492042) EtOH [Ethanol] abuse NOS (305.00) Active confirmed Problem Abnormal liver function (92947087) Abnormal liver function study (794.8) Active confirmed Problem Essential hypertension (02135268) Essential (primary) hypertension (I10) Active confirmed Problem Hypertension (04630502) HTN (hypertension) (I10) Active confirmed Problem Vitamin D deficiency (75624082) Vitamin D deficiency (E55.9) Active confirmed Problem Hypertriglyceridemia (649621302) Hypertriglyceridemia (E78.1) Active confirmed Problem Abnormal results of liver function studies (409443647) Abnormal results of liver function studies (R94.5) Active confirmed Problem Mixed hyperlipidemia (617816086) Mixed hyperlipidemia (E78.2) Active confirmed Problem Mitral valve disorde r (84687453) Nonrheumatic mitral (valve) insufficiency (I34.0) Active confirmed Problem Ventricular prematur e depolarization (998907620) Ventricular premature depolarization (I49.3) Active confirmed Problem Gout (08012196) Gout, unspecifie d (M10.9) Active confirmed Problem Male erectile disorder (903088424) Male erectile disorder (N52.9) Active confirmed Problem Chronic pain (42558106) Other chronic pain (G89.29) Active confirmed Problem Atherosclerosis of coronary artery without angina pectoris (800579779795263) Atherosclerosis of tejon coronary artery of tejon heart without angina pectoris (I25.10) Active confirmed Problem Thrombocytopenia (769121864) Thrombocytopenia (D69.6) Active confirmed Problem Atherosclerotic hear t disease of tejon coronary artery without angina pectoris (726361619892748) Coronary artery disease involving tejon coronary artery of tejon heart without angina pectoris (I25.10) Active confirmed Problem Gastroesophageal reflux disease (871717616) Gastroesophageal reflux disease, esophagitis presence not specified (K21.9) Active confirmed Problem Leukocytosis (650567279) Leukocytosis, unspecified type (D72.829) Active confirmed Problem Anemia (662023636) Anemia, unspe cified type (D64.9) Active confirmed Problem Alcoholism (4988931) Alcoholism (F10.20) Active confirmed Problem Localized, primary osteoarthritis of the shoulder region (269651821) 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) Active confirmed Problem Sciatica (13919781) Right-sided low back pain with right-sided sciatica, unspecified chronicity (M54.41) Active confirmed Problem Gastrointestinal hemorrhage (95932280) Gastrointestinal hemorrhage, unspecified gastrointestinal hemorrhage type (K92.2) Active confirmed Problem Thyromegaly (4654651) Thyromegaly (E01.0) Active confirmed Problem Acute on chronic diastolic heart failure (295157343) Acute on chronic diastolic congestive heart failure (I50.33) Active confirmed Problem Arthritis of left knee (4134063681018009) Arthritis of left knee (M17.12) Active confirmed Problem Type II diabetes mellitus without complication (325001621) Type 2 diabetes mellitus without complication, unspecified whether residential insulin use (E11.9) Active confirmed Problem Diastolic dysfunctio n (4935581) Diastolic dysfunction (I51.89) Active confirmed Problem Bradyarrhythmia (206475333) Bradyarrhythmia (I49.8) Active confirmed Problem Cardiac arrhythmia (467258714) Bigeminy (I49.8) Active confirmed Problem Chronic idiopathic thrombocytopenic purpura (disorder) (11488106) Idiopathic thrombocytopenic purpura (ITP) (D69.3) Active confirmed Vital Signs Heart Rate 54 /min 11/17/2024 Blood pressure diastolic 74 mm Hg 11/17/2024 Height 74 in 11/17/2024 Blood pressure systolic 118 mm Hg 11/17/2024 Weight 227.8 lbs 11/17/2024 BMI 29.24 kg/m2 11/17/2024 Encounters Encounter Location Date Provider Diagnosis [facility] [address] [facility] [address] [place], [place] [id number] 06/09/2024 Pasquale Odell Umbilical hernia wit hout obstruction and without gangrene K42.9 [facility] [address] [facility] [address] [place], [place] [id number] 06/15/2024 Pasquale Odell Anemia, unspecified type D64.9 and Heartburn R12 [facility] [address] [facility] [address] [place], [place] [id number] 06/20/2024 Pasquale Odell [facility] [address] [facility] [address] [place], [place] [id number] 06/22/2024 Pasquale Odell Confusion R41.0 ; Anemia, unspecified type D64.9 ; Peripheral edema R60.0 and Heme positive stool R19.5 [facility] [address] [facility] [address] [place], [place] [id number] 07/08/2024 Pasquale Odell Intermittent confusi on R41.0 and Dizziness R42 [facility] [address] [facility] [address] [place], [place] [id number] 09/27/2024 Lana Perera Cellulitis of right leg L03.115 and Wound of right lower extremity, subsequent encounter S81.801D [facility] [address] [facility] [address] [place] [id number] 10/04/2024 Lana Perera Cellulitis of right leg L03.115 and Wound of right lower extremity, subsequent encounter S81.801D [facility] [address] [facility] [address] [place], [place] [id number] 11/17/2024 Pasquale Odell Pre-op exam Z01.818 ; Arthritis of left knee M17.12 ; Anemia, unspecified type D64.9 ; Thyromegaly E01.0 ; Coronary artery disease involving tejon coronary artery of tejon heart without angina pectoris I25.10 ; Type 2 diabetes mellitus without complication, unspecified whether residential insulin use E11.9 ; Mixed hyperlipidemia E78.2 ; HTN (hypertension) I10 ; Gastroesophageal reflux disease, esophagitis presence not specified K21.9 ; Gout, unspecified M10.9 and Open wound of right lower extremity, subsequent encounter S81.801D [facility] [address] [place], [place] [id number] 05/24/2025 Pasquale Odell [facility] [address] [place], [place] [id number] 06/13/2024 Pasquale Odell Anemia, unspecified type D64.9 and Peripheral edema R60.0 [facility] [address] [place], [place] [id number] 06/20/2024 Pasquale Odell [facility] [address] [place], [place] [id number] 06/22/2024 Pasquale Odell [facility] [address] [place], [place] [id number] 06/29/2024 Pasquale Odell Confusion R41.0 ; Anemia, unspecified type D64.9 and Cramp in limb R25.2 [facility] [address] [place], [place] [id number] 07/01/2024 Pasquale Odell [facility] [address] [place], [place] [id number] 07/18/2024 Pasquale Odell [facility] [address] [place], [place] [id number] 08/18/2024 Pasquale Odell [facility] [address] [place], [place] [id number] 09/30/2024 Lana Perera Wound of right lower extremity, subsequent encounter S81.801D [facility] [address] [place], [place] [id number] 04/07/2025 Pasquale Odell Assessments Encounter Date Diagnosis (ICD Code) Assessment [...] D64.9) 06/22/2024 Peripheral edema (ICD-10 - R60.0) 06/22/2024 Heme positive stool (ICD-10 - R19.5) 11/17/2024 Thyromegaly (ICD-10 - E01.0) 11/17/2024 Coronary artery disease involving tejon coronary artery of tejon heart without angina pectoris (ICD-10 - I25.10) 11/17/2024 Type 2 diabetes mellitus without complication, unspecified whether terminal carman insulin use (ICD-10 - E11.9) 11/17/2024 Mixed hyperlipidemia (ICD-10 - E78.2) 11/17/2024 HTN (hypertension) (ICD-10 - I10) 11/17/2024 Gastroesophageal reflux disease, esophagitis presence not specified (ICD-10 - K21.9) 11/17/2024 Gout, unspecified (ICD-10 - M10.9) 11/17/2024 Open wound of right lower extremity, subsequent encounter (ICD-10 - S81.801D) Plan Of Treatment Pending Test Test Name Order Date CXR 04/03/2023 Next Appt Details Provider Name:Pasquale heath, 06/07/2025 11:00:00 AM, [address], [place], [place], [id number], Insurance Providers Payer Name Payer Address Payer Phone Subscriber Number Group Number Insured Name Patient Relationship to Insured Coverage Start Date Coverage End Date MEDICARE PART B [address] [address] [place] [id number] Solo Burch Self - patient is the insured [facility] [address] [place] [address] [id number] Solo Burch Self - patient is the insured Medications Administered Medication Instructions Date of Administration Dosage Notes Depo- Medrol 40 mg/ml 09/01/2016 1 mL Medical (General) History Medical History History ICD Code Coronary Artery Disease, LT Heart Cath, [facility] 06/2019 Hypertension A Fib Hyperlipidemia Gout ETOH abuse Abnormal LFT's Bilateral Inguinal Hernia Diastolic Dysfunction, Echo, 09/2019 Osteoarthritis anemia/GI bleed April 2023 Thrombocytopenia, s/p Heme/Onc evaluatio n at [facility] cirrhosis, s/p GI evaluation with Dr. Alivia batres DVT, Right leg, 2023 Immune Thrombocytopenia Purpura Surgical History Surgery Date(Month/Year) LT Shoulder Replacement 2005 Bilateral inguinal hernia repair 013 Percutaneous Coronary Intervention, 3 St ents Placed 06/2019 Rotator Cuff Tear Repair 02/18/2022 umbilical hernia repair - At 08/2023 Hospitalization History Reason Date(Month/Year)
--- OUTSIDE RECORDS SUMMARY | 2025-06-07 08:52 | XMS_ITS | Encounter Summary ---
Author Organization Healthcare Address [address] [place] [address] Care Team Providers Care Business Operations Director Name Role Phone Pasquale Girard MD Primary Care Provider [phone] Reason for Referral * Consultation (Routine) - Authorized Specialty Diagnoses / Procedures Referred By Haritha garcia Referred To Contact Orthopaedic Surgery Diagnoses Osteoarthritis of left knee, unspecified osteoarthritis type Wilner Ortiz DO [address] [place] [address] Phone: tel: fax: Jimbo Grover MD [address] [address] Phone: tel: fax: Referral ID Status Reason Start Date Expiration Date V isits Requested Visits Authorized [id number] Authorized 07/22/2024 01/21/2026 1 1 Encounter Details Date Type Department Care Team (Latest Contact Info) Description 07/22/2024 Community [facility] [address] [place] [address] Wilner Ortiz DO [address] [place] [id number] Osteoarthritis of left knee, unspecified osteoarthritis type [...] Primary documented in this encounter Care Teams Business Operations Director Relationship Specialty Start Date End Date Pasquale Girard MD [address] [place] [address] PCP - General 03/15/21 documented as of this encounter
--- NOTE | 2025-06-07 08:54 | PC.NURSE ---
0854-collected labs via venipuncture stick in right ac with butterfly needle in right ac; pt to hematology appt
[2025-06-07 09:10] LABS: Hematocrit 41.3 % (42.0-52.0); Hemoglobin 14.0 g/dL (14.1-18.0); Immature Granulocytes % 0.2 %; Mean Corpuscular HGB Conc 33.9 g/dL (31.8-35.4); Mean Corpuscular Hemoglobin 30.2 pg (27.0-31.2); Mean Corpuscular Volume 89.2 fl (80-94); Nucleated Red Blood Cells % 0 %; Platelet Count 79 K/mm3 (142-424); Red Blood Count 4.63 M/mm3 (4.60-6.20); Red Cell Distribution Width-SD 66.8 fL; White Blood Count 4.4 K/mm3 (4.8-10.8)
[2025-06-07 09:25] LABS: Albumin Level 4.0 g/dl (3.5-5.0); Chloride 103 mmol/L (98-107); Potassium 4.4 mmoL/L (3.5-5.1); Sodium 132 mmol/L (136-145)
[2025-06-07 09:27] LABS: Activated Partial Thrombo Time 28.1 seconds (22.8-30.6); INR 1.19 (0.9-1.1); Prothrombin Time 13.0 seconds (10.1-12.5)
[2025-06-07 09:28] LABS: Alanine Aminotransferase 27 U/L (12-78); Albumin/Globulin Ratio 1.3 (1.1-1.8); Alkaline Phosphatase 81 U/L (38-126); Anion Gap 9.4 mEq/L (5-15); Aspartate Amino Transferase 67 U/L (17-59); Bilirubin,Total 2.1 mg/dl (0.2-1.3); Blood Urea Nitrogen 8 mg/dl (9-20); Calcium 8.8 mg/dl (8.4-10.2); Carbon Dioxide 24 mmol/L (22.0-30.0); Creatinine,Serum 0.90 mg/dl (0.66-1.25); Estimated Glomerular Filt Rate 84 ml/min (>60); GFR (African American) 102 ML/MIN (>60); Globulin 3.0 g/dL (1.3-3.2); Glucose 107 mg/dl (74-100); Total Protein,Serum 7.0 g/dl (6.3-8.2)
[2025-06-07 11:47] LABS: Cholesterol 173 mg/dl (140-200); HDL Cholesterol 97 mg/dl (40-60); Triglycerides 61 mg/dl (30-150)
[2025-06-07 12:13] LABS: Hemoglobin A1C 4.3 % (4.0-6.0)
[2025-06-07 12:19] LABS: Thyroid Stimulating Hormone 2.35 uIU/mL (0.465-4.68)
== END 2025-06-07 08:59 | disposition home or self-care (01) ==
LOC: INF 08:48
PROVIDERS: PCP Family Medicine; Visit Provider Internal Medicine Medical Oncology
DX: D69.3 Immune thrombocytopenic purpura (principal); D64.9 Anemia, unspecified; E11.9 Type 2 diabetes mellitus without complications; I25.10 Atherosclerotic heart disease of native coronary artery without angina pectoris
CPT/HCPCS: 36415; 80053; 80061; 83036; 84443; 85025; 85610; 85730

== ENCOUNTER 2025-07-10 09:59 | Outpatient (CLI) | payer MEDICARE, BC, SELFPAY ==
--- OUTSIDE RECORDS SUMMARY | 2025-07-10 10:05 | XMS_ITS | Clinical Summary ---
Author Organization Healthcare Address [address] [place] [address] Care Team Providers Care Loss Prevention Leader Name Role Phone Pasquale Girard MD Primary Care Provider [phone] Allergies No known active allergies Medications bisoprolol [...] Influenza, seasonal, injectable 08/19/2021 Moderna COVID-19 Vaccine (Incinerator Plant General Supervisor) 12+ years ,12/27/2020 Social History Tobacco Use [...] - Risk 60-74 years 1-dose series) 2019 RDG-NBPVA-07 Vaccine (3 - season) 2025 01/24/2021, 12/27/2020 UKY-Influenza Vaccine (#1) 07/03/202509/09, 08/19/2021, [...] ORDERABLES Final Resu lt [facility] [address] [place] [address] from Last 3 Months or Most Recently Relevant to Health Maintenance [place] [address] Advance Directives * Full Code (Latest Code Status on File) Date Activated Date Inactivated Comments 08/01/2023 3:26 PM 08/06/2023 6:04 PM Question Answer Comments Patient has decision-making capacity? Yes Care Teams Loss Prevention Leader Relationship Specialty Start Date End Date Pasquale Girard MD [address] [facility] [address] [place] [address] PCP - General 5/14/21
--- OUTSIDE RECORDS SUMMARY | 2025-07-10 10:05 | XMS_ITS | Clinical Summary ---
Author Organization [facility] Address [address] [place] [address] Care Team Providers Care Health Promotion Coordinator Name Role Phone Pasquale Girard MD Primary Care Provider + [phone] Allergies No known active allergies Medications losartan [...] help finding or keeping work or a mikcy b? Not on file 08/14/2023 Disabilities Answer [...] SCREEN ONCE 2024 COVID-19 Vaccine ( season) 2025, 12/27/2020 INFLUENZA VACCINE 08/02/2025 Medical Devices Implanted Type Area Nail Mill Worker Device Identifier Shelf Expiration Date Model / Serial / Lot Cmt Bone [id number] 20gm - [id number] Implanted:Qt y: 1 on 02/19/2022 by Sam Massey MD at [facility] Implant Right: Shoulder DEPUY [id number] 12/30/2022 [id number] / / [id number] Sut Fw #2 W/Tpr Ndl 1/2 Cir 38in 97cm 26.5mm Blair - [id number] Implanted:Qt y: 3 on 02/19/2022 by Sam Massey MD at [facility] Implant Right: Shoulder ARTHREX 03/01/2026 [id number] / / [id number] Saravanan Aug Aequalis Performplus Cortiloc Peg Cocr 15d Lg Rt - [id number] - [id number] Implanted:Qt y: 1 on 02/19/2022 by Sam Massey MD at [facility] Implant Right: Shoulder TORNIER [id number] 09/10/2025 [id number] / [id number] / Nucleus Shldr Simpliciti Sz2 - [id number] - [id number] Implanted:Qt y: 1 on 02/19/2022 by Sam Massey MD at [facility] Implant Right: Shoulder TORNIER 11/26/2026 [id number] / [id number] / NA Hd Hum/Shldr Simpliciti 19r10fw - [id number] - [id number] Implanted:Qt y: 1 on 02/19/2022 by Sam Massey MD at [facility] Implant Right: Shoulder TORNIER 08/28/2026 [id number] / [id number] / NA Shldr Simpliciti Nucleus Hd Saravanan Tornier - [id number] Implanted:Qt y: 1 on 02/19/2022 by Sam Massey MD at [facility] Implant Right: Shoulder TORNIER CAPSHLDRHDGLENTO R N / / Insurance [facility] BLUE CROSS BLUE SHIELD PPO Advance [...] Of Support Discussed With: Patient Care Teams Health Promotion Coordinator Relationship Specialty Start Date End Date Pasquale Girard MD [address] [place] [address] [place] [address] PCP - General Family Medicine 01/14/22
--- OUTSIDE RECORDS SUMMARY | 2025-07-10 10:05 | XMS_ITS | Clinical Summary ---
Author Organization [facility] Address [address] [facility] [place] [address] Phone Care Team Providers Care Nut Sheller Machine Operator Name Role Phone Unavailable Primary [...] 2) 2009 COVID-19 Vaccine (2023-2 5 season) 2025 Influenza Vaccine (#1) 2025 Hepatitis B Vaccine Aged Out No longe r eligible based on patient's age to complete this topic Meningococcal B Vaccine Aged Out No l onger eligible based on patient's age to complete this topic
--- OUTSIDE RECORDS SUMMARY | 2025-07-10 10:05 | XMS_ITS | Encounter Summary ---
Author Organization Healthcare Address [address] [place] [address] Care Team Providers Care Dianeticist Name Role Phone Pasquale Girard MD Primary Care Provider [phone] Reason for Referral * Consultation (Routine) - Authorized Specialty Diagnoses / Procedures Referred By Haritha garcia Referred To Contact Orthopaedic Surgery Diagnoses Osteoarthritis of left knee, unspecified osteoarthritis type Wilner Ortiz DO [address] [place] [address] Phone: tel: fax: Jimbo Grover MD [address] [address] Phone: tel: fax: Referral ID Status Reason Start Date Expiration Date V isits Requested Visits Authorized [id number] Authorized 07/22/2024 01/21/2026 1 1 Encounter Details Date Type Department Care Team (Latest Contact Info) Description 07/22/2024 Community [facility] [address] [place] [address] Wilner Ortiz DO [address] [place] [id number] Osteoarthritis of left knee, unspecified osteoarthritis type [...] Primary documented in this encounter Care Teams Dianeticist Relationship Specialty Start Date End Date Pasquale Girard MD [address] [place] [address] PCP - General 03/15/21 documented as of this encounter
--- NOTE | 2025-07-10 10:08 | PC.NURSE ---
1008-collected labs via venipuncture stick in right ac with butterfly needle;pt to d/c home
[2025-07-10 10:17] LABS: Hematocrit 43.9 % (42.0-52.0); Hemoglobin 15.4 g/dL (14.1-18.0); Immature Granulocytes % 0.4 %; Mean Corpuscular HGB Conc 35.1 g/dL (31.8-35.4); Mean Corpuscular Hemoglobin 32.3 pg (27.0-31.2); Mean Corpuscular Volume 92.0 fl (80-94); Nucleated Red Blood Cells % 0 %; Platelet Count 82 K/mm3 (142-424); Red Blood Count 4.77 M/mm3 (4.60-6.20); Red Cell Distribution Width-SD 53.0 fL; White Blood Count 5.7 K/mm3 (4.8-10.8)
[2025-07-10 10:29] LABS: Alanine Aminotransferase 24 U/L (12-78); Albumin Level 3.9 g/dl (3.5-5.0); Albumin/Globulin Ratio 1.1 (1.1-1.8); Alkaline Phosphatase 81 U/L (38-126); Anion Gap 11.6 mEq/L (5-15); Aspartate Amino Transferase 50 U/L (17-59); Bilirubin,Total 2.4 mg/dl (0.2-1.3); Blood Urea Nitrogen 11 mg/dl (9-20); Calcium 9.7 mg/dl (8.4-10.2); Carbon Dioxide 24 mmol/L (22.0-30.0); Chloride 101 mmol/L (98-107); Creatinine,Serum 0.90 mg/dl (0.66-1.25); Estimated Glomerular Filt Rate 84 ml/min (>60); GFR (African American) 102 ML/MIN (>60); Globulin 3.4 g/dL (1.3-3.2); Glucose 90 mg/dl (74-100); Potassium 4.6 mmoL/L (3.5-5.1); Sodium 132 mmol/L (136-145); Total Protein,Serum 7.3 g/dl (6.3-8.2)
== END 2025-07-10 10:11 | disposition home or self-care (01) ==
LOC: INF 10:01
PROVIDERS: PCP Family Medicine; Visit Provider Internal Medicine Medical Oncology
DX: D69.3 Immune thrombocytopenic purpura (principal)
CPT/HCPCS: 36415; 80053; 85025

== ENCOUNTER 2025-08-04 09:48 | Outpatient (CLI) | payer MEDICARE, BC, SELFPAY ==
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
--- OUTSIDE RECORDS SUMMARY | 2024-09-27 06:45 | XMS_ITS ---
Author Organization [facility] Address 1210 [facility] [address] [place] [phone] Care Team Providers Care Derrick Boat Captain Name Role Phone Pasquale Girard Primary Care Provider [phone] Daljit Pereraine Unavailable [phone] Allergies No Known Allergies Results Component Value Reference Range Notes P-Culture, Wound Aerobic w/G jojo Stain Reviewed date:10/01/2024 12:10:32 PM Interpretation: Performing Lab: Notes/Report: Test performed by [employer] [address] , [address], [place] [address] Jong Schneider MD, Store Receiving Specialist CLIA: [id number] Specimen Source Leg - Lower Right Leg [...] day(s) Active Santyl 250 UNIT/GM 1 application Nut Roaster Helper ally Once a day 05/04/2024 Active [...] 09/27/2024 Active Mupirocin 2 % 1 application Nut Roaster Helper ally qd; Duration: 30 days 09/27/2024 Active Vital Signs Blood pressure systolic 130 mm Hg 09/27/20 24 Blood pressure diastolic 74 mm Hg 024 Heart Rate 87 /min 09/27/2024 Height 74 in 09/27/2024 Weight 224.7 lbs 09/27/2024 BMI 28.85 kg/m2 09/27/2024 Encounters Encounter Location Date Provider Diagnosis [facility] [address] [facility] [address] [place] [phone] 09/27/2024 Lana Perera Cellulitis of right leg [...] day(s) 09/27/2024 Mupirocin 2 % 1 application Nut Roaster Helper ally qd; Duration: 30 days 09/27/2024 Treatment Notes Assessment Notes Cellulitis of right leg elevate the leg as much as possible Wound of right lower extremi ty, subsequent encounter keep wound dry with showering; apply mupirocin around edges of the wound ; keep covered Next Appt Details Follow Up: 1 Week, Reason: Progress Notes * Solo AMBROSEDOB:[birth year] (65 yo M)Acc No.[id number]:09/27/2024 Progress Notes Patient: Solo HERNANDEZ Provider: CHARLES Villegas :1960 A ge:64 Y S ex:Male Date:09/27/2024 Address:[address] [place] [address] , [facility] y , [id number] Pcp:Pasquale Girard Subjective: * Chief Complaints: * 1 . Leg wound possible infection. * HPI: D ermatology: 64 year old male presents with c/o ulcer. c/o redness.? c/o Wound P t complains of lower rt leg wound. Pt had been going to [facility] wound clinic but stopped because [...] C oronary Artery Disease, LT Heart Cath, [facility] 06/2019, Hypertension, A Fib, Hyperlipidemia, Gout, ETOH abuse, Abnormal LFT's, Bilateral Inguinal Hernia, Diastolic Dysfunction, Echo, 09/2019, Osteoarthritis, anemia/GI bleed April 2023, Thrombocytopenia, s/p Heme/Onc evaluation at [facility], cirrhosis, s/p GI evaluation with [...] * Images: Billing Information: * Visit Code: 16999 Office Visit, Est Pt., Level 4. * Procedure Codes: G2211 Complex e/m visit add on. * Electronic signature of Viridiana Perera APRN on 08/04/2025 at 09:51 AM EDT Sign off status: Pending * Provider: CHARLES Villegas Date: 11/27/2023 Generated for Azeb gill/Hudson/Alisitting on: 09:51 AM EDT History and Physical Notes * [...] leg wound. Pt had been going to [facility] wound clinic but stopped because [...]
--- OUTSIDE RECORDS SUMMARY | 2024-10-04 07:15 | XMS_ITS ---
Author Organization [facility] Address 1210 [facility] [address] [place] [phone] Care Team Providers Care Clinical Program Manager Name Role Phone Pasquale Girard Primary Care Provider Lana Perera Unavailable [phone] Allergies No Known Allergies REASON FOR VISIT 1 week Medications Medication SIG (Take, Route, Frequency, Duration) Notes Start Date End Date Status Xarelto 15 MG 1 tablet with food O rally Once a day; Duration: 30 day(s) Active Silvadene 1 % 1 application Dictaphone Transcriber ally Once a day; Duration: 30 days 10/04/2024 Active Spironolactone 50 MG 1 tablet Orally Two times a day; Duration: 30 days Active Bisoprolol Fumarate 10 MG 1 tablet Orall y Once a day; Duration: 30 day(s) Active Mupirocin 2 % 1 application Dictaphone Transcriber ally qd; Duration: 30 days 09/27/2024 Active levoFLOXacin 500 MG 1 tablet Orally Once a day Active Vital Signs Blood pressure systolic 130 mm Hg 10/04/20 24 Blood pressure diastolic 80 mm Hg 024 Heart Rate 62 /min 10/04/2024 Height 74 in 10/04/2024 Weight 229.2 lbs 10/04/2024 BMI 29.42 kg/m2 10/04/2024 Encounters Encounter Location Date Provider Diagnosis [facility] 12[facility] [address] [place] [phone] 10/04/2024 Lana Perera Cellulitis of right leg [...] Date Notes Silvadene 1 % 1 application Dictaphone Transcriber ally Once a day; Duration: 30 days [...] * Solo AMBROSEDOB:[birth year] (65 yo M)Acc No.[id number]:10/04/2024 Progress Notes Patient: Solo HERNANDEZ Provider: CHARLES Villegas :1960 A ge:64 Y S ex:Male Date:10/04/2024 Address:[address] [place] [address] , [facility] , [id number] Pcp:Pasquale Girard Subjective: * Chief Complaints: * [...] C oronary Artery Disease, LT Heart Cath, [facility] 06/2019, Hypertension, A Fib, Hyperlipidemia, Gout, ETOH abuse, Abnormal LFT's, Bilateral Inguinal Hernia, Diastolic Dysfunction, Echo, 09/2019, Osteoarthritis, anemia/GI bleed April 2023, Thrombocytopenia, s/p Heme/Onc evaluation at [facility], cirrhosis, s/p GI evaluation with [...] Temp:97.2, BP:130/80, HR:62, O2 Sat:100% on RA, Nurse:[facility], Ht: 74, BMI:29.42. * Examination: G [...] * Images: Billing Information: * Visit Code: 68562 Office Visit, Est Pt., Level 3. * Procedure Codes: 95063 PULSE OX. G2211 Complex e/m visit add on. * Electronic signature of Viridiana Perera APRN on 08/04/2025 at 09:52 AM EDT Sign off status: Pending * Provider: CHARLES Villegas Date: 1 12/05/2023 Generated for Azeb gill/Hudson/Corrie on: 09:52 AM EDT History and Physical Notes [...]
--- OUTSIDE RECORDS SUMMARY | 2024-11-17 06:00 | XMS_ITS ---
Author Organization Jannie Address 1210 [facility] [address] [place] [phone] Care Team Providers Care Sign Language Instructor Name Role Phone Pasquale Girard Primary Care [...] Encounter Location Date Provider Diagnosis Zander 1210 [facility] [address] [place] [id number] 11/17/2024 Pasquale Girard Pre-op exam Z01.818 ; Arthritis of left knee M17.12 ; Anemia, unspecified type D64.9 ; Thyromegaly E01.0 ; Coronary artery disease involving [place] coronary artery of [place] heart without angina pectoris I25.10 ; Type 2 diabetes mellitus without complication, unspecified whether terminal makeup operator insulin use E11.9 ; Mixed hyperlipidemia E78.2 [...] - E01.0) 11/17/2024 Coronary artery disease involving [place] coronary artery of [place] heart without angina pectoris (ICD-10 - I25.10) 11/17/2024 Type 2 diabetes mellitus without complication, unspecified whether terminal makeup operator insulin use (ICD-10 - E11.9) 11/17/2024 [...] * Solo AMBROSEDOB:[birth year] (65 yo M)Acc No.[id number]:11/17/2024 Physical Patient: Solo HERNANDEZ Provider: Sofia Girard M.D. :1960 A ge:64 Y S ex:Male Date:11/17/2024 Address:[address] [place] [address] , [facility] y , [id number] Subjective: * Chief Complaints: * 1 . [...] C oronary Artery Disease, LT Heart Cath, [facility] 06/2019, Hypertension, A Fib, Hyperlipidemia, Gout, ETOH abuse, Abnormal LFT's, Bilateral Inguinal Hernia, Diastolic Dysfunction, Echo, 09/2019, Osteoarthritis, anemia/GI bleed April 2023, Thrombocytopenia, s/p Heme/Onc evaluation at [facility], cirrhosis, s/p GI evaluation with Dr. [...] E01.0? 5. C oronary artery disease involving [place] coronary artery of [place] heart without angina pectoris - I25.10 6 . T ype 2 diabetes mellitus without complication, unspecified whether terminal makeup operator insulin use - E11.9 7 . [...] * Images: Billing Information: * Visit Code: 69954 Office Visit, Est Pt., Level 4. * Procedure Codes: G2211 Complex e/m visit add on. * Electronic signature of Abbey Girard MD on 08/04/2025 at 09:51 AM EDT Sign off status: Pending * Provider: Sofia Girard M.D. Date: 0 11/17/2024 Generated for Printi ng/Faskyeg/eTransmitting on: 1 09:51 AM EDT History and Physical Notes [...]
--- OUTSIDE RECORDS SUMMARY | 2025-06-07 07:00 | XMS_ITS ---
[facility] Address [address] [facility] [address] [place] [id number] Care Team Providers Care Project Analyst Name Role Phone Pasquale Girard Primary Care Provider [phone] Allergies No Known Allergies Results Component [...] 09:51:05 AM Interpretation:Normal Performing Lab: Notes/Report: CLIA: [id number] Jong Schneider MD, Hospice Nurse [facility] , [place] [address] Test performed by [employer], [facility] Albumin/Creatinine Ratio, Urine <3.69 0-30 ug/m [...] W/U Status Risk Notes Problem Alcoholic cirrhosis (047026498) Alcoholic cirrhosis of liver with ascites (K70.31) Active confirmed Problem Body mass index 30+ - obesity (164415011) BMI 30.0-30.9,adul t (Z68.30) Active confirmed Vital Signs Blood pressure systolic 122 mm Hg 06/07/20 25 Blood pressure diastolic 70 mm Hg 025 Heart Rate 76 /min 06/07/2025 Height 74 in 06/07/2025 Weight 236.3 lbs 06/07/2025 BMI 30.34 kg/m2 06/07/2025 Encounters Encounter Location Date Provider Diagnosis [facility] [address] [facility] [address] [place] [address], [place] [phone] 06/07/2025 Pasquale Girard HTN (hypertension) I 10 [...] Up: 1 Year, Reason: Progress Notes * HALIESoloDOB:[birth year] (65 yo M)Acc No.[id number]:06/07/2025 Progress Notes Patient: Solo HERNANDEZ Provider: Sofia Girard M.D. :1960 A ge:65 Y S ex:Male Date:06/07/2025 Address:[address] , [id number] Subjective: * Chief Complaints: * 1 . [...] C oronary Artery Disease, LT Heart Cath, [facility] 06/2019, Hypertension, A Fib, Hyperlipidemia, Gout, ETOH abuse, Abnormal LFT's, Bilateral Inguinal Hernia, Diastolic Dysfunction, Echo, 09/2019, Osteoarthritis, anemia/GI bleed April 2023, Thrombocytopenia, s/p Heme/Onc evaluation at [facility], cirrhosis, s/p GI evaluation with [...] with ascites - K70.31 5 . B NV 30.0-30.9,adult - Z68.30 Plan: * Treatment: Value [...] Follow Up: 1 Year * Images: Drawing:main [place] [facility] 2024 Billing Information: * Visit Code: 91181 Office Visit, Est Pt., Level 3. * Procedure Codes: G2211 Complex e/m visit add on. 3044F HG A1C LEVEL LT 7.0%. 1036F TOBACCO NON-USER. G8950 PREHTN/HTN BP DOC INDCD F/U DOC. G8752 MOST RECENT SYSTOLIC BP < 140MM HG. G8754 MOST RECENT DIASTOLIC BP < 90MM HG. * Electronic signature of Abbey Girard MD on 08/04/2025 at 09:50 AM EDT Sign off status: Pending * Provider: Sofia Girard M.D. Date: 0 06/07/2025 Generated for Teagani ng/Jedg/eTransmitting on: 1 09:50 AM EDT History and Physical Notes * [...]
--- OUTSIDE RECORDS SUMMARY | 2025-08-04 09:51 | XMS_ITS | Clinical Summary ---
Author Organization DANIEL LILA OD Address [facility] [place] [address] Phone Care Team Providers Care Able Bodied Watchman Name Role Phone Unavailable Primary Care Provider [...]
--- OUTSIDE RECORDS SUMMARY | 2025-08-04 09:51 | XMS_ITS | Data Portability ---
Author Organization [facility] [place] [facility] Address [address] [facility] [address] [place] [address] Assessment Encounter Date Assessment Date Assessment LastModified [...] 1 % topical gel 2017 018 INTERFACE [employer] #[id number], [address] [place], [place], [id number], 8 10:08:42 Patient TargetsNo targets recorded. Patient Instructions Encounter Date Encounter Id Patient Instructions Last Modified By Organization Details Last Modified Time 12/24/2017 [id number] shoulder arthrit is: exercises [email or web address] Not available [...] situation. [email or web address] Not available 12/25/2017 07:56:08 12/29/2017 [id number] shoulder arthrit is: exercises [email or web address] Not available 12/29/2017 10:07:12 Reason for Referral None Reported. Results Created Date Observation Date Name Description Value Unit Range Abnormal Flag Note LastModifiedBy Organization Detail LastModifiedTime 12/24/19 18 12/24/2017 XR, silvianoul aishwarya, 2 or more view Teena song [facility] Jessica [address] [place] [address] Paticelsa t Name: KAELYN garcia : [id number] [...] MD on 018 2:57 PM [email or web address] [facility] [place] [address] [place], [place], [address], 12/24/2017 16:31:00 02/27/20 18 12/29/2017 rf lt shoul aishwarya stero id injec tion [address] [address] Paticelsa t Name: KAELYN KRAUS Paticelsa t [...] Isovue 300 was wasted and discar ded. [facility] [phone] [facility] [address]- [phone] [facility] [address]- 1610-5 0 IMPRES FRANCISCA: 1. The patien t is status post left should er arthro gram with dexame thason e and bupiva ed inject ion withou t compli cation . Interp reted By: Yo castillo MD Electr onical ly Signed By: Yo castillo MD on 018 12:[address] Radiology [facility] [address] [place], [address], 12/29/2017 18:14:15 Result Notes Documentation Provider Name and Address Organization Details Recorded Time Xr, Shoulder, 2 Or More View : [facility] [place] [address] [place] [address] Patient Name: KAELYN KAN Patient : 1960 [...] By: Kaelyn Sahu MD Carol THOMAS MD [address] [place] [address], [phone], [facility] 12/24/2017 16:31:00 Procedures Surgical History Date Name Laterality Status Provider Name and Address Organization Details Recorded Time Orthopedic Surgery completed [facility] 12/24/2017 14:09:47 Imaging Results None recorded. Procedure [...] Updated DateTime 12/24/2017 187.96 cm 29.5 kg/m2 585724.25 g 142/82 mm[Hg] [facility] 12/24/2017 14:07:23 Date Recorded Body height Body mass index (BMI) Body weight Systolic And Diastolic Provider Name and Address Organization Details Last Updated DateTime 12/29/2017 187.96 cm 29.5 kg/m2 170044.25 g 165/104 mm[Hg] Mariel Brown [facility] 12/29/2017 09:48:14 Social History Question Answer Notes LastModified by Organizat ion Details LastModified Time Tobacco Smoking Status Never Smoker Hiwot Brown yuki [facility] 12/24/2017 14:09:39 What Was The Date [...] Heart Conditions N Tuberculosis N Migraines N COPD N Asthma N Pneumonia N Blood Thinners N Sleep Apnea N Anesthesia Complications N Liver Disease N Hypertension Y Osteoporosis N Kidney Disease N Past Encounters Encounter ID Performer Location Encounter Start Date Encounter Closed Date Diagnosis/Indication Diagnosis SNOMED-CT Code Diagnosis ICD10 Code Diagnosis IMO Codes Diagnosis Note [id number] W DARYA THOMAS MD [facility] [facility] [address] [place] [address] 12/24/2017 13:55:33 12/24/2017 15:58:56 Localized, primary osteoarthritis of the shoulder region 685362510 M19.388 [id number] CHRISTIANO VILLEGAS MD [facility] [place] [facility] [address] [place] [address] 12/29/2017 09:32:32 12/29/2017 11:08:54 Localized, primary osteoarthritis of the shoulder region [id number] M19.019 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 HHR [...] ID Guarantor Name 09/26/2020 1 JAZLYN (PPO) [id number] Kaelyn Kan [id number] Kaelyn Kan Notes Date Note Type [...] sent for further evaluation. Carol THOMAS MD [address] [place] [address], [phone], [facility] 12/28/2017 07:56:38 12/29/2017 text/html ROS as noted in the HPI LEFT SHoulder proximla Humerus Fx 30 years ago. Rx Non [...] Uses Indomethacin for pain CHRISTIANO VILLEGAS MD [address] [place] [address], [phone], [facility] 12/29/2017 10:09:31
--- OUTSIDE RECORDS SUMMARY | 2025-08-04 09:51 | XMS_ITS | Clinical Summary ---
Author Organization Healthcare Address [address] [place] [address] Care Team Providers Care Manager Of Human Resources Name Role Phone Pasquale Girard MD Primary Care Provider [phone] Allergies No known active allergies Medications bisoprolol [...] Influenza, seasonal, injectable 08/19/2021 Moderna COVID-19 Vaccine (Dish Cloth Inspector) 12+ years ,12/27/2020 Social History Tobacco Use [...] - Risk 60-74 years 1-dose series) 2019 [id number] Vaccine (3 - season) 2025 01/24/2021, 12/27/2020 [...] ORDERABLES Final Resu lt [facility] [address] [place] [address] from Last 3 Months or Most Recently Relevant to Health Maintenance [place] [address] Advance Directives * Full Code (Latest Code Status on File) Date Activated Date Inactivated Comments 08/01/2023 3:26 PM 08/06/2023 6:04 PM Question Answer Comments Patient has decision-making capacity? Yes Care Teams Manager Of Human Resources Relationship Specialty Start Date End Date Pasquale Girard MD [address] [facility] [address] [place] [address] PCP - General 5/14/21
--- OUTSIDE RECORDS SUMMARY | 2025-08-04 09:51 | XMS_ITS | Patient Health Record ---
[facility] Address [address] [facility] [address] [place] [id number] Care Team Providers Care Relay Motorman Name Role Phone Pasquale Girard Primary Care Provider [phone] PereraLana worthington Unavailable [phone] Allergies No Known Allergies Results Component Value [...] Interpretation:Normal Performing Lab: Notes/Report: Test performed by [employer] [facility] , [address], [place] [address] Jong Schneider MD, Nut Process Helper CLIA: [id number] Albumin/Creatinine Ratio, Urine <3.69 0-30 ug/mg Microalbumin, Urine, Random <0.3 Creatinine, Urine 81.1 H-TSH Reviewed date:06/08/2025 09:51:05 AM Interpretation:Normal Performing Lab: Notes/Report: TSH 2.35 0.465-4.68 uIU/mL P-Culture, Wound Aerobic w/G jojo Stain Reviewed date:10/01/2024 12:10:32 PM Interpretation: Performing Lab: Notes/Report: CLIA: [id number] Jong Schneider MD, Nut Process Helper [address] [place] [address] , Suite , [place] [address] Test performed by [facility] [employer] Specimen Source Leg - Lower Right Leg [...] tablet Orally beti ry other day Active Immunizations Vaccine Route Administration Date Status [...] Status Risk Notes Problem Nondependent alcohol abuse (027528613) EtOH [Ethanol] abuse NOS (305.00) Active confirmed Problem Abnormal liver function (85379819) Abnormal liver function study (794.8) Active confirmed Problem Essential hypertension (50347418) Essential (primary) hypertension (I10) Active confirmed Problem Hypertension (49387905) HTN (hypertension) (I10) Active confirmed Problem Vitamin D deficiency (75385510) Vitamin D deficiency (E55.9) Active confirmed Problem Hypertriglyceridemia (812291284) Hypertriglyceridemia (E78.1) Active confirmed Problem Abnormal results of liver function studies (390748559) Abnormal results of liver function studies (R94.5) Active confirmed Problem Body mass index 30+ - obesity (871084017) BMI 30.0-30.9,adult (Z68.30) Active confirmed Problem Mixed hyperlipidemia (659850688) Mixed hyperlipidemia (E78.2) Active confirmed Problem Mitral valve disorde r (21140005) Nonrheumatic mitral (valve) insufficiency (I34.0) Active confirmed Problem Ventricular prematur e depolarization (481133298) Ventricular premature depolarization (I49.3) Active confirmed Problem Alcoholic cirrhosis (146657632) Alcoholic cirrhosis of liver with ascites (K70.31) Active confirmed Problem Gout (55261538) Gout, unspecifie d (M10.9) Active confirmed Problem Male erectile disorder (875315529) Male erectile disorder (N52.9) Active confirmed Problem Chronic pain (52923950) Other chronic pain (G89.29) Active confirmed Problem Atherosclerosis of coronary artery without angina pectoris (978087002185730) Atherosclerosis of [place] coronary artery of [place] heart without angina pectoris (I25.10) Active confirmed Problem Thrombocytopenia (372914261) Thrombocytopenia (D69.6) Active confirmed Problem Atherosclerotic hear t disease of [place] coronary artery without angina pectoris (632689750143514) Coronary artery disease involving [place] coronary artery of [place] heart without angina pectoris (I25.10) Active confirmed Problem Gastroesophageal reflux disease (591344126) Gastroesophageal reflux disease, esophagitis presence not specified (K21.9) Active confirmed Problem Leukocytosis (355444434) Leukocytosis, unspecified type (D72.829) Active confirmed Problem Anemia (260271327) Anemia, unspe cified type (D64.9) Active confirmed Problem Alcoholism (2379445) Alcoholism (F10.20) Active confirmed Problem Localized, primary osteoarthritis of the shoulder region (433771123) 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) Active confirmed Problem Sciatica (67201486) Right-sided low back pain with right-sided sciatica, unspecified chronicity (M54.41) Active confirmed Problem Gastrointestinal hemorrhage (84630684) Gastrointestinal hemorrhage, unspecified gastrointestinal hemorrhage type (K92.2) Active confirmed Problem Thyromegaly (1086219) Thyromegaly (E01.0) Active confirmed Problem Acute on chronic diastolic heart failure (207883251) Acute on chronic diastolic congestive heart failure (I50.33) Active confirmed Problem Arthritis of left knee (6435514612817723) Arthritis of left knee (M17.12) Active confirmed Problem Type II diabetes mellitus without complication (050896933) Type 2 diabetes mellitus without complication, unspecified whether keno terminal operator insulin use (E11.9) Active confirmed Problem Diastolic dysfunctio n (4659856) Diastolic dysfunction (I51.89) Active confirmed Problem Bradyarrhythmia (947173810) Bradyarrhythmia (I49.8) Active confirmed Problem Cardiac arrhythmia (984051714) Bigeminy (I49.8) Active confirmed Problem Chronic idiopathic thrombocytopenic purpura (disorder) (10873035) Idiopathic thrombocytopenic purpura (ITP) (D69.3) Active confirmed Vital Signs Heart Rate 76 /min 06/07/2025 Blood pressure diastolic 70 mm Hg 06/07/2025 Height 74 in 06/07/2025 Blood pressure systolic 122 mm Hg 06/07/2025 Weight 236.3 lbs 06/07/2025 BMI 30.34 kg/m2 06/07/2025 Encounters Encounter Location Date Provider Diagnosis [facility] [address] [facility] [address] [place] [id number] 09/27/2024 Lana Perera Cellulitis of right leg L03.115 and Wound of right lower extremity, subsequent encounter S81.801D [facility] [address] [facility] [address] [place] [id number] 10/04/2024 Lana Perera Cellulitis of right leg L03.115 and Wound of right lower extremity, subsequent encounter S81.801D [facility] [address] [facility] [address] [place] [id number] 11/17/2024 Pasquale Callicoon Pre-op exam Z01.818 ; Arthritis of left knee M17.12 ; Anemia, unspecified type D64.9 ; Thyromegaly E01.0 ; Coronary artery disease involving [place] coronary artery of [place] heart without angina pectoris I25.10 ; Type 2 diabetes mellitus without complication, unspecified whether jail insulin use E11.9 ; Mixed hyperlipidemia E78.2 ; HTN (hypertension) I10 ; Gastroesophageal reflux disease, esophagitis presence not specified K21.9 ; Gout, unspecified M10.9 and Open wound of right lower extremity, subsequent encounter S81.801D [facility] [address] [facility] [address] [place] [id number] 06/07/2025 Pasquale Callicoon HTN (hypertension) I 10 ; Hyperglycemia R73.9 ; Idiopathic thrombocytopenic purpura (ITP) D69.3 ; Alcoholic cirrhosis of liver with ascites K70.31 and BMI 30.0-30.9,adult Z68.30 [facility] [address] [facility] [address] [place] [id number] 08/18/2024 [facility]ale [facility]icoon [facility] [address] [place], [place] [id number] 09/30/2024 Lana Perera Wound of right lower extremity, subsequent encounter S81.801D [facility] [address] [place], [place] [id number] 04/07/2025 Pasquale Callicoon [facility] [address] [place], [place] [id number] 05/24/2025 Pasquale Callicoon [facility] [address] [place], [place] [id number] 06/08/2025 Pasquale Callicoon Assessments Encounter Date Diagnosis (ICD Code) Assessment [...] Arthritis of left knee (ICD-10 - M17.12) 06/07/2025 Hyperglycemia (ICD-10 - R73.9) 06/07/2025 HTN (hypertension) (ICD-10 - I10) 06/07/2025 Idiopathic thrombocytopenic purpura (ITP) (ICD-10 - D69.3) 11/17/2024 Anemia, unspecified type (ICD-10 - D64.9) 11/17/2024 Thyromegaly (ICD-10 - E01.0) 06/07/2025 Alcoholic cirrhosis of liver with ascites (ICD-10 - K70.31) 06/07/2025 BMI 30.0-30.9,adult (ICD-10 - Z68.30) 11/17/2024 Coronary artery disease involving [place] coronary artery of [place] heart without angina pectoris (ICD-10 - I25.10) 11/17/2024 Type 2 diabetes mellitus without complication, unspecified whether keno terminal operator insulin use (ICD-10 - E11.9) 11/17/2024 Mixed hyperlipidemia (ICD-10 - E78.2) 11/17/2024 HTN (hypertension) (ICD-10 - I10) 11/17/2024 Gastroesophageal reflux disease, esophagitis presence not specified (ICD-10 - K21.9) 11/17/2024 Gout, unspecified (ICD-10 - M10.9) 11/17/2024 Open wound of right lower extremity, subsequent encounter (ICD-10 - S81.801D) Plan Of Treatment No Information Insurance Providers Payer Name Payer Address Payer Phone Subscriber Number Group Number Insured Name Patient Relationship to Insured Coverage Start Date Coverage End Date MEDICARE PART B [address] [address] [place] [id number] Solo Burch Self - patient is the insured [facility] [address] [place] [address] [id number] Solo Burch Self - patient is the insured Medications Administered Medication Instructions Date of Administration Dosage Notes Depo- Medrol 40 mg/ml 09/01/2016 1 mL Medical (General) History Medical History History ICD Code Coronary Artery Disease, LT Heart Cath, [facility] 06/2019 Hypertension A Fib Hyperlipidemia Gout ETOH abuse Abnormal LFT's Bilateral Inguinal Hernia Diastolic Dysfunction, Echo, 09/2019 Osteoarthritis anemia/GI bleed April 2023 Thrombocytopenia, s/p Heme/Onc evaluatio n at [facility] cirrhosis, s/p GI evaluation with Dr. Alivia batres DVT, Right leg, 2023 Immune Thrombocytopenia Purpura Surgical History Surgery Date(Month/Year) LT Shoulder Replacement 2005 Bilateral inguinal hernia repair 013 Percutaneous Coronary Intervention, 3 St ents Placed 06/2019 Rotator Cuff Tear Repair 02/18/2022 umbilical hernia repair - At 08/2023 Hospitalization History Reason Date(Month/Year)
--- OUTSIDE RECORDS SUMMARY | 2025-08-04 09:52 | XMS_ITS | Continuity of Care Document ---
Author Organization [place] [facility] [place] & [place], [facility] Address [address] [facility] [address] [place] [address] Care Team Providers Care Nursery Supervisor Name Role Phone [facility] Primary Care Provider [phone] Assessment Encounter Date Assessment Date Assessment LastModified by Organization Details LastModified Time 06/15/2025 06/15/2025 65-year-old male with: 1) History of GI bleeding: [...] causes of chronic liver disease was negative. -MELD 3.0 = 14. - Labs from 06/07/25 reviwed. 3) Constipation: Miralax as needed. Start Simethicone for bloating. 4) Thrombocytopenia : Profound. Patient follows with Dr. Bermudez. 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 Partially responsive to steroids. 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 6) GERD: Dexilant has significantly improved his symptoms. Continue. 7) Hepatic Encephalopathy: Mild. Intolerant of lactulose. Xifaxan too expensive. 9) Ascites/LE edema: Continue Lasix/Aldactone 100/40. Not adherent to salt restriction. Repeated counseling today. -g daily sodium restriction recommended. 10) Prophy: Colonoscopy and EGD negative 07/16/24. Plan for EGD in one year (07/27) due to decompensation. Will schedule this today. Colonoscopy due in 2033. -Avoid NSAIDS. He may take acetaminophen up to 2g daily as needed. -Immune to hepatitis a. I have asked him to get hepatitis B vaccine with PCP if available. -Will obtain AFP and US liver q6 months for HCC screening. Recent US and AFP with no concerns for HCC. Patient to perform ultrasound at [facility]. Awaiting results of US. Not available 06/15/2025 15:45:46 Plan of Treatment Reminders Order Date Submit Date Provider Last Modified By Organization Details Last Modified Time Details Appointments Establish ed Visit 15 min 2025 09:00A M Saeid Gilman MD Not available Not available Not available Lab None recorded. Referral None recorded. Procedures None recorded. Surgeries None recorded. Imaging None recorded. Medication [...] Organization Details Recorded Time Cirrhosis of liver 00011161 Active 2022 Pablito Mccarthy PA-C [address], [place], [address] , [place] [facility] & [place] 3 09:35:44 Constipation 69931924 Active 2022 Pablito Mccarthy PA-C [address], [place], [address] , [place] [facility] & [place] 3 10:54:34 Thrombocytope cris disorder 541882203 Active 2022 Pablito Mccarthy PA-C [address], [place], [address] , [place] [facility] & [place] 3 10:54:44 Superior mesenteric vein thrombosis 563843152 Active 2022 Pablito Mccarthy PA-C [address], [place], [address] , [place] [facility] & [place] 3 10:55:43 Gastroesophag eal reflux disease without esophagitis 037390519 Active 2022 Pablito Mccarthy PA-C [address], [place], [address] , [facility] & [place] 3 09:35:58 Abdominal bloating 814161777 Active 2022 Pablito Mccarthy PA-C [address], [place], [address] , [facility] & [place] 3 09:36:01 Problem Notes None recorded. Procedures Surgical History Date Name Laterality Status Provider Name and Address Organization Details Recorded Time [facility] [place] [facility]/09/2025 09:27:31 total shoulder replacement completed Kraig Medeiros [facility] & [place] 02/09/2025 09:27:47 operation on stomach completed Kraig Medeiros [facility] & [place] 02/09/2025 09:27:59 Imaging Results None recorded. Procedure [...] fumarate 5 mg tablet TAKE 1/2 TABLET BY MOUTH ONCE DAILY active Not Available Not Available [...] 1 TABLET BY MOUTH TWICE A DAY 06/15 completed Not Available Not Available Not Available phytonadion e (vitamin K1) 5 mg tablet TAKE 1 TABLET BY MOUTH EVERY DAY 06/15 completed Not Available Not Available Not Available [...] DAILY MUST ADMINISTE R WITH EVENING MEAL 06/15 completed Not Available Not Available Not Available Xarelto 20 mg tablet TAKE 1 TABLET BY MOUTH DAILY 02/09 completed Not Available Not Available Not Available potassium chloride ER 20 mEq tablet,exte nded release TAKE 1 TABLET BY MOUTH ONCE DAILY WITH FOOD. 06/25 completed Not Available Not Available Not Available Patriziaqunancy DVT-PE Treatment 30-Day Starter 5 mg (74 [...] Details Last Updated DateTime 5 187.96 cm 30 kg/m2 036724. 61 g 99 % 99 % 72 /min 123/72 mm[Hg] Jane Gil [facility] & [place] 5 11:16:17 Social History Question Answer Notes LastModified by Organizat ion Details LastModified Time Tobacco Smoking Status Never Smoker Precious mirza, [facility] & [place] 06/25/2023 09:09:55 What Is Your Level Of Caffeine Consumption? Occasional [email or web address] Information not available 06/25/2023 Sex: Unknown Functional Status Question Answer Note LastModified by Organizat ion Details LastModified Time Do you use any illicit or recreational drugs? No [email or web address] Information not available 06/25/2023 Do you or have you ever used any other forms of tobacco or nicotine? No [email or web address] Information not available 06/25/2023 What is your level of alcohol consumption? None [email or web address] Information not available 06/25/2023 Mental Status None [...] 14:40:57 Medical History No medical history recorded. Immunizations Vaccine Type Date Status Note Provider Nam e and Address Organization Details Recorded Time Influenza, split virus, quadrivalent, PF 7 completed Not Available [facility] 06/15/2025 11:09:41 Hep A, adult 8 completed Not Available [facility] 06/15/2025 11:09:41 Influenza, MDCK, quadrivalent, PF 0 completed Not Available [facility] 06/15/2025 11:09:41 COVID-19, mRNA, LNP-S, PF, 100 mcg/0.5mL dose or 50 mcg/0.25mL dose 1 completed Not Available [facility] 06/15/2025 11:09:41 COVID-19, mRNA, LNP-S, PF, 100 mcg/0.5mL dose or 50 mcg/0.25mL dose 1 completed Not Available [facility] 06/15/2025 11:09:41 Influenza, split virus, trivalent, preservative 1 completed Not Available [facility] 06/15/2025 11:09:41 Influenza, MDCK, quadrivalent, PF 2 completed Not Available [facility] 06/15/2025 11:09:41 Influenza, split virus, quadrivalent, PF 3 completed Not Available [facility] 06/15/2025 11:09:41 Past Encounters Encounter ID Performer Location Encounter Start Date Encounter Closed Date Diagnosis/Indication Diagnosis SNOMED-CT Code Diagnosis ICD10 Code Diagnosis IMO Codes Diagnosis Note [id number] Saeid Gilman MD [facility] [place] [id number] 06/15/2025 11:07:24 06/15/2025 12:25:39 Cirrhosis of liver 60082746 K74.60 Constipation 06254086 K5 9.00 Thrombocyt openic disorder 295442977 D69.6 Superior m esenteric vein thrombosis 205650224 K55.059 History of gastrointestinal bleed 567700292 Z87.19 Gastroesop hageal reflux disease without esophagitis 583713206 K21.9 Abdominal bloating 55221 9008 R14.0 Hepatic encephalopathy 59382358 K76.82 Ascites 108999614 R18.8 Alcoholic cirrhosis 4200 74360 K70.31 [id number] Health Concerns Section Related Observation LastModified by Organization Detai ls LastModified Time None Recorded Concern Status LastModified by Organization Details LastModified Time None Recorded Payers Encounter Date Sequence Insurance Name Policy Number Policy Hidalgo Covered Member ID Hidalgo Member ID Guarantor Name 06/15/2025 1 [place] Solo Ambrose [id number] Solo Ambrose 06/15/2025 2 [place] [id number] Solo Ambrose [id number] Solo Ambrose Notes Date Note Type Note Provider Name and Address Organization Details Recorded Time 06/15/2025 text/html PREVIOUS (06/25/23): Mr. Ambrose is a [...] as 16. He was seeing hematology in [place] and was placed on steroids which [...] thought to be completely secondary to portal hypertension.NELL WYMAN (02/09/25) Mr. Ambrose presents today for follow up. He is doing well. He has discontinued diuretics and has no abdominal or LE swelling. Saeid Gilman MD [address], [place], [address], [facility] - [place] [facility] [place] [facility] [place] 06/15/2025 15:46:39
--- OUTSIDE RECORDS SUMMARY | 2025-08-04 09:52 | XMS_ITS | Clinical Summary ---
Author Organization [facility] Address [address] [place] [address] Care Team Providers Care Line Out Worker Name Role Phone Pasquale Girard MD Primary Care Provider + [phone] Allergies No known active allergies Medications losartan [...] C SCREENING 01/14/2022 AAA SCREEN ONCE 2024 INFLUENZA VACCINE 06/02/2025 COVID-19 Vaccine ( season) 2025, 12/27/2020 Medical Devices Implanted Type Area Route Sales Delivery Drivers Supervisor Device Identifier Shelf Expiration Date Model / Serial / Lot Cmt Bone [id number] 20gm - [id number] Implanted:Qt y: 1 on 02/19/2022 by Sam Massey MD at [facility] Implant Right: Shoulder DEPUY [id number] 12/30/2022 [id number] / / [id number] Sut Fw #2 W/Tpr Ndl 1/2 Cir 38in 97cm 26.5mm Blair - [id number] Implanted:Qt y: 3 on 02/19/2022 by Sam Massey MD at [facility] Implant Right: Shoulder ARTHREX 03/01/2026 [id number] / / [id number] Saravanan Aug Aequalis Performplus Cortiloc Peg Cocr 15d Lg Rt - [id number] - [id number] Implanted:Qt y: 1 on 02/19/2022 by Sam Massey MD at [facility] Implant Right: Shoulder TORNIER [id number] 09/10/2025 [id number] / [id number] / Nucleus Shldr Simpliciti Sz2 - [id number] - [id number] Implanted:Qt y: 1 on 02/19/2022 by Sam Massey MD at [facility] Implant Right: Shoulder TORNIER 11/26/2026 [id number] / [id number] / NA Hd Hum/Shldr Simpliciti [id number] - [id number] - [id number] Implanted:Qt y: 1 on 02/19/2022 by Sam Massey MD at [facility] Implant Right: Shoulder TORNIER 08/28/2026 [id number] / [id number] / NA Shldr Simpliciti Nucleus Hd Saravanan Tornier - [id number] Implanted:Qt y: 1 on 02/19/2022 by Sam Massey MD at [facility] Implant Right: Shoulder TORNIER CAPSHLDRHDGLENTO R N / / Insurance [facility] BLUE SHIELD PPO Advance [...] Of Support Discussed With: Patient Care Teams Line Out Worker Relationship Specialty Start Date End Date Pasquale Girard MD [address] [place] [address] [place] [address] PCP - General Family Medicine 01/14/22
--- OUTSIDE RECORDS SUMMARY | 2025-08-04 09:52 | XMS_ITS | Data Portability ---
Author Organization [place] Address [address] [place] [address] Care Team Providers Care Pipe Line Inspector Name Role Phone [facility] Primary Care Provider Assessment Encounter Date Assessment Date Assessment LastModified by Organization Details LastModified Time 07/23/2023 07/23/2023 63-year-old male with: 1) History [...] bloating. 4) Thrombocytopenia: Profound. He sees a rn spine in [place]. Previously improved on steroids. This improved with steroids previously, worsenend when they were stopped. 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 Following with hematology. 6) GERD: Change Nexium to Pantoprazole. [email or web address] Not available 07/23/2023 18:04:22 08/11/2024 08/11/2024 64-year-old [...] HCC. Pt reports recent US abd at [facility]. WIll obtain. Not available 08/11/2024 12:23:52 10/13/2024 [...] HCC. Pt reports recent US abd at [facility]. WIll obtain. Not available 10/13/2024 10:41:40 02/09/2025 [...] - Labs ordered through with the patient's rn spine, Dr. Bermudez. 3) Constipation: Miralax as needed. [...] to patient today. Not available 02/09/2025 09:58:02 06/15/2025 06/15/2025 65-year-old male with: 1) History [...] to perform ultrasound at [facility]. Awaiting results of US. Not available 06/15/2025 15:45:46 Plan of Treatment Reminders Order Date Submit Date Provider Last Modified By Organization Details Last Modified Time Details Appointments Establish ed Visit 15 min 2025 09:00A M Saeid Gilman MD Not available Not available Not available Lab CMP, serum or plasma 2024 025 [place] [facility], [address], [address], [place], [address], 02/14/2025 10:44:25 CBC w/ auto diff 2024 025 [place] [facility], [address], [address], [place], [address], 02/14/2025 10:44:26 afp (alpha-fe toprotein ) tumor marker, serum or plasma 2024 025 [place] [facility], [address], [address], [place], [address], 02/15/2025 14:25:49 PT/PTT, plasma 2024 025 [place] [facility], [address], [address], [place], [address], 02/14/2025 11:28:54 CMP, serum or plasma 2023 [place] [facility], [address], [address], [place], [address], 08/12/2024 10:04:33 afp (alpha-fe toprotein ) tumor marker, serum or plasma 2023 024 [email or web address] 4 [facility], [address], [address], [place], [address], 08/18/2024 09:03:53 PT/INR 2023 024 [email or web address] 4 [facility], [address], [address], [place], [address], 08/18/2024 09:03:53 CBC w/ auto diff 2023 024 [place] [facility], [address], [address], [place], [address], 08/12/2024 09:09:00 hepatitis A virus Ab, qualitati ve, immunoass ay, serum 2023 024 [place] [facility], [address], [address], [place], [address], 08/14/2024 19:21:40 hepatitis B surface Ab, qualitati ve, serum 2023 024 [place] [facility], [address], [address], [place], [address], 08/13/2024 12:51:57 Referral None recorded. Procedures None recorded. Surgeries None recorded. Imaging US, liver 2024 [facility] ([facility]), [address], [place], [address], 02/22/2025 11:08:42 Medication Orders Xifaxan 550 mg tablet 2023 [id number], [address] [place], [address], 02/09/2025 09:26:24 Dexilant 60 mg capsule, delayed release 2023 024 [facility][id number], [address] [place], [address], 08/11/2024 11:25:44 simethico ne 125 mg capsule 2022 [address] [facility] [facility], [address] [place], [place], [id number], 02/09/2025 09:26:02 pantopraz ole 40 mg tablet,de layed release 2022 023 [facility] [address] [facility]08987, [address], [id number], 02/09/2025 09:22:38 Patient TargetsNo targets recorded. Patient InstructionsNo instructions recorded. Reason for Referral None Reported. Results Created Date Observation Date Name Description Value Unit Range Abnormal Flag Note LastModifiedBy Organization Detail LastModifiedTime 07/15/20 24 07/15/2024 BHAVANI PREP TISSU E bhavani prep tissue NEGATI VE negati ve Not Available [facility] ([facility]) [address] , [place], [address], 07/15/2024 17:33:57 07/14/20 25 07/19/2025 PATHO LOGY SPECI MEN pathology specimen SEE REPORT Not Available [facility] ([facility]) [address] , [place], [address], 07/19/2025 12:23:35 07/07/20 23 07/07/2023 US, liver No observ ation record ed. [facility] [address], [place], [address], 08/28/2023 14:46:27 02/23/20 25 02/21/2025 US, liver No observ ation record ed. [facility] [address], [place], [address], 02/28/2025 11:44:25 Result Notes None recorded. Problems Name Problem SNOMED Code Status Onset Date Resolution Date Notes Provider Name and Address Organization Details Recorded Time Cirrhosis of liver Active 2022 Pablito Mccarthy PA-C [address], [place], [address] , [place] [facility] [place] 3 09:35:44 Constipation 36709157 Active 2022 Pablito Mccarthy PA-C [address], [place], [address] , [place] [place] 3 10:54:34 Thrombocytope cris disorder 904124840 Active 2022 Pablito Mccarthy PA-C [address], [place], [address] , [place] [place] 3 10:54:44 Superior mesenteric vein thrombosis 715568999 Active 2022 Pablito Mccarthy PA-C [address], [place], [address] , [place] [place] 3 10:55:43 Gastroesophag eal reflux disease without esophagitis 314859331 Active 2022 Pablito Mccarthy PA-C [address], [place], [address] , [place] [place] 3 09:35:58 Abdominal bloating 237439955 Active 2022 Pablito Mccarthy PA-C [address], [place], [address] , [place] 3 09:36:01 Problem Notes None recorded. Procedures Surgical History Date Name Laterality Status Provider Name and Address Organization Details Recorded Time total knee replacement completed Kraig [facility] DELVIS [facility] & [place] 02/09/2025 09:27:31 total shoulder replacement completed [facility] & [place] 02/09/2025 09:27:47 operation on stomach completed Kraig [facility] 02/09/2025 09:27:59 Imaging Results None recorded. Procedure [...] Updated DateTime 02/09/2025 187.96 cm 28.8 kg/m2 849458.4 9 g 73 /min 133/73 mm[Hg] Kraig Medeiros [place] [facility] & [place] 5 09:28:08 Date Recorded Body height Body mass index (BMI) Body weight Oxygen saturation Oxygen saturation in Arterial blood by Pulse oximetry Heart rate Systolic And Diastolic Provider Name and Address Organization Details Last Updated DateTime 5 187.96 cm 30 kg/m2 911251. 61 g 99 % 99 % 72 /min 123/72 mm[Hg] aJne [facility] - [facility] & [place] 5 11:16:17 Date Recorded Body weight Body mass index (BMI) Body height Heart rate Body temperature Oxygen saturation Oxygen saturation in Arterial blood by Pulse oximetry Heart rate Systolic And Diastolic Provider Name and Address Organization Details Last Updated DateTime 4 872953. 2 g 29.7 kg/m2 187.96 cm 109 /min 98.1 [degF] 95 % 95 % 100 /min 164/76 mm[Hg] Precious Faye [facility] & [place] 4 10:29:44 Date Recorded Body height Body mass index (BMI) Body weight Body temperature Heart rate Systolic And Diastolic Provider Name and Address Organization Details Last Updated DateTime 4 187.96 cm 29.7 kg/m2 442579. 56 g 97.3 [degF] 75 /min 146/75 mm[Hg] Lisha Shell [facility] & [place] 4 09:10:59 Social History Question Answer Notes LastModified by docplanner Details LastModified Time Tobacco Smoking Status Never Smoker Precious Faye [facility], [facility] & [place] 06/25/2023 09:09:55 What Is Your Level Of Caffeine Consumption? Occasional [email or web address] Information not available 06/25/2023 Sex: Unknown Functional Status Question Answer Note LastModified by docplanner Details LastModified Time Do you use any illicit or recreational drugs? No [email or web address] Information not available 06/25/2023 Do you or have you ever used any other forms of tobacco or nicotine? No [email or web address] Information not available 06/25/2023 What is your level of alcohol consumption? None [email or web address] Information not available 06/25/2023 Mental Status None recorded. Family History Relationship Description Onset Age of this Age Resolved Age Notes LastModified by Organization Details LastModified Time Mother Disorder of endocrine system pt. added direct ly (07/22) [email or web address] Not available 07/22/2023 14:40:34 Mother Myocardial infarction pt. added direct ly (07/22) [email or web address] Not available 07/22/2023 14:40:56 Brother Disorder of endocrine system pt. added direct ly (09/20 /23) [email or web address] Not available 07/22/2023 14:40:34 Brother Myocardial infarction pt. added direct ly (07/22) [email or web address] Not available 07/22/2023 14:40:57 Medical History No medical history recorded. Immunizations Vaccine Type Date Status Note Provider Nam e and Address Organization Details Recorded Time Influenza, split virus, quadrivalent, PF 7 completed Not Available [facility] 06/15/2025 11:09:41 Hep A, adult 8 completed Not Available [facility] 06/15/2025 11:09:41 Influenza, MDCK, quadrivalent, PF 0 completed Not Available [facility] 06/15/2025 11:09:41 COVID-19, mRNA, LNP-S, PF, 100 mcg/0.5mL dose or 50 mcg/0.25mL dose 1 completed Not Available [facility] 06/15/2025 11:09:41 COVID-19, mRNA, LNP-S, PF, 100 mcg/0.5mL dose or 50 mcg/0.25mL dose 1 completed Not Available [facility] 06/15/2025 11:09:41 Influenza, split virus, trivalent, preservative 1 completed Not Available [facility] 06/15/2025 11:09:41 Influenza, MDCK, quadrivalent, PF 2 completed Not Available [facility] 06/15/2025 11:09:41 Influenza, split virus, quadrivalent, PF 3 completed Not Available [facility] 06/15/2025 11:09:41 Past Encounters Encounter ID Performer Location Encounter Start Date Encounter Closed Date Diagnosis/Indication Diagnosis SNOMED-CT Code Diagnosis ICD10 Code Diagnosis IMO Codes Diagnosis Note [id number] Saeid Gilman MD [facility] [address] [address] 06/01/2023 08:33:54 06/01/2023 13:05:24 [id number] Pablito Mccarthy PA-C [facility] [address] [address] 06/25/2023 08:46:19 06/25/2023 09:47:01 Cirrhosis of liver 69465260 K74.60 Constipation 01719104 K5 9.00 Thrombocyt openic disorder 440688025 D69.6 Superior m esenteric vein thrombosis 044535340 K55.059 History of gastrointestinal bleed 312101894 Z87.19 [id number] Pablito Mccarthy PA-C [facility] [place] [address] 2 07/23/2023 09:01:42 07/23/2023 10:12:53 Cirrhosis of liver 62346876 K74.60 Constipation 30681954 K5 9.00 Thrombocyt openic disorder 703692494 D69.6 Superior m esenteric vein thrombosis 912356719 K55.059 History of gastrointestinal bleed 255527022 Z87.19 Gastroesop hageal reflux disease without esophagitis 708684530 K21.9 Abdominal bloating 20831 9008 R14.0 [id number] Saeid Gilman MD [facility] [place] [address]32[address] 2 08/11/2024 10:19:21 08/11/2024 11:42:38 Cirrhosis of liver 39992501 K74.60 Constipation 73364244 K5 9.00 Thrombocyt openic disorder 388712262 D69.6 Superior m esenteric vein thrombosis 226344584 K55.059 History of gastrointestinal bleed 159908163 Z87.19 Gastroesop hageal reflux disease without esophagitis 645272919 K21.9 Abdominal bloating 08161 9008 R14.0 Hepatic encephalopathy 36395143 K76.82 Ascites 634020236 R18.8 [id number] Saeid Gilman MD [facility] [address] [address] 10/13/2024 08:57:09 10/13/2024 09:43:50 Cirrhosis of liver 56759769 K74.60 Constipation 83833524 K5 9.00 Thrombocyt openic disorder 669201120 D69.6 Superior m esenteric vein thrombosis 832958574 K55.059 History of gastrointestinal bleed 685997643 Z87.19 Gastroesop hageal reflux disease without esophagitis 345216616 K21.9 Abdominal bloating 33523 9008 R14.0 Hepatic encephalopathy 12044056 K76.82 Ascites 743444828 R18.8 [id number] Saeid Gilman MD [facility] [address] [address] 02/09/2025 09:08:06 02/09/2025 09:52:00 Cirrhosis of liver 85551050 K74.60 Constipation 05145845 K5 9.00 Thrombocyt openic disorder 388377112 D69.6 Superior m esenteric vein thrombosis 930970495 K55.059 History of gastrointestinal bleed 295841990 Z87.19 Gastroesop hageal reflux disease without esophagitis 896423188 K21.9 Abdominal bloating 45814 9008 R14.0 Hepatic encephalopathy 01196674 K76.82 Ascites 016085810 R18.8 Alcoholic cirrhosis 4200 51233 K70.31 8401568 [id number] Saeid Gilman MD [facility] [address] [address] 06/15/2025 11:07:24 06/15/2025 12:25:39 Cirrhosis of liver 75928384 K74.60 Constipation 10581864 K5 9.00 Thrombocyt openic disorder 331491860 D69.6 Superior m esenteric vein thrombosis 290181893 K55.059 History of gastrointestinal bleed 036859410 Z87.19 Gastroesop hageal reflux disease without esophagitis 871644535 K21.9 Abdominal bloating 11975 9008 R14.0 Hepatic encephalopathy 44765990 K76.82 Ascites 464930207 R18.8 Alcoholic cirrhosis 4200 38813 K70.31 [id number] Health Concerns Section Related Observation LastModified by Organization Detai ls LastModified Time None Recorded Concern Status LastModified by Organization Details LastModified Time None Recorded Advance Directives Directive None Recorded Payers Insurance Date Sequence Insurance Name Policy Number Policy Hidalgo Covered Member ID Hidalgo Member ID Guarantor Name 10/13/2024 2 [facility] [employer] CLAIMS - [place] Halie Banda [id number] Solo Ambrose 08/12/2024 1 [place] Banda [id number] Solo Ambrose 07/11/2025 1 [place] Solo Ambrose [id number] Solo Ambrose 07/18/2025 2 [place] [id number] Solo Ambrose [id number] Solo Ambrose Notes Date Note Type Note Provider Name and Address Organization Details Recorded Time 07/23/2023 text/html PREVIOUS (06/25/23): Mr. Ambrose is a [...] as 16. He was seeing hematology in [place] and was placed on steroids which [...] further disposition of care. Pablito Mccarthy PA-C [address], [place], [address], [place] 07/23/2023 18:04:40 08/11/2024 text/html PREVIOUS (06/25/23): Mr. Ambrose is a [...] as 16. He was seeing hematology in [place] and was placed on steroids which [...] Sleep cycle is altered. Saeid Gilman MD [address], [place], [address], [place] 08/11/2024 12:24:41 10/13/2024 text/html PREVIOUS (06/25/23): Mr. Ambrose is a [...] as 16. He was seeing hematology in [place] and was placed on steroids which [...] He otherwise feels well. Saeid Gilman MD [address], [place], [address], [facility] & [place] 10/13/2024 10:41:59 02/09/2025 text/html PREVIOUS (06/25/23): Mr. Ambrose is [...] as 16. He was seeing hemat[place] in [place] and was placed on steroids which [...] increase in abdominal girth. Saeid Gilman MD [address], [place], [address], [place] 02/09/2025 10:06:18 06/15/2025 text/html PREVIOUS (06/25/23): Mr. Ambrose is [...] as 16. He was seeing hematology in [place] and was placed on steroids which [...] thought to be completely secondary to portal hypertension.CURRENT (02/09/25) Mr. Ambrose presents today for follow up. He is doing well. He has discontinued diuretics and has no abdominal or LE swelling. Saeid Gilman MD [address], [place], [address], [facility] - [place] & [place] 06/15/2025 15:46:39
--- NOTE | 2025-08-04 09:53 | PC.NURSE ---
0953- collected labs via venipuncture stick in right ac with butterfly needle;pt to d/c home
--- OUTSIDE RECORDS SUMMARY | 2025-08-04 09:53 | XMS_ITS | Encounter Summary ---
Author Organization Healthcare Address [address] [place] [address] Care Team Providers Care Dental Cream Maker Name Role Phone Pasquale Girard MD Primary Care Provider [phone] Encounter Details Date Type Department Care Team (Latest Contact Info) Description 07/22/2024 Community [facility] [address] [place] [address] Wilner Ortiz, DO [address] [place] [id number] Osteoarthritis of left knee, unspecified osteoarthritis type [...] as of this encounter Plan of Treatment Not on file documented as of this encounter Visit Diagnoses Diagnosis Osteoarthritis of left knee, unspecified osteoarthritis type- Primary documented in this encounter Care Teams Dental Cream Maker Relationship Specialty Start Date End Date Pasquale Girard MD [address] [place] [address] PCP - General 03/15/21 documented as of this encounter
[2025-08-04 10:11] LABS: Hematocrit 42.2 % (42.0-52.0); Hemoglobin 14.7 g/dL (14.1-18.0); Immature Granulocytes % 0.4 %; Mean Corpuscular HGB Conc 34.8 g/dL (31.8-35.4); Mean Corpuscular Hemoglobin 33.1 pg (27.0-31.2); Mean Corpuscular Volume 95.0 fl (80-94); Nucleated Red Blood Cells % 0 %; Platelet Count 67 K/mm3 (142-424); Red Blood Count 4.44 M/mm3 (4.60-6.20); Red Cell Distribution Width-SD 47.5 fL; White Blood Count 4.8 K/mm3 (4.8-10.8)
[2025-08-04 10:28] LABS: Alanine Aminotransferase 26 U/L (12-78); Albumin Level 3.5 g/dl (3.5-5.0); Albumin/Globulin Ratio 1.2 (1.1-1.8); Alkaline Phosphatase 92 U/L (38-126); Anion Gap 13.3 mEq/L (5-15); Aspartate Amino Transferase 52 U/L (17-59); Bilirubin,Total 2.8 mg/dl (0.2-1.3); Blood Urea Nitrogen 7 mg/dl (9-20); Calcium 8.8 mg/dl (8.4-10.2); Carbon Dioxide 24 mmol/L (22.0-30.0); Chloride 103 mmol/L (98-107); Creatinine,Serum 0.80 mg/dl (0.66-1.25); Estimated Glomerular Filt Rate 97 ml/min (>60); GFR (African American) 117 ML/MIN (>60); Globulin 3.0 g/dL (1.3-3.2); Glucose 102 mg/dl (74-100); Potassium 4.3 mmoL/L (3.5-5.1); Sodium 136 mmol/L (136-145); Total Protein,Serum 6.5 g/dl (6.3-8.2)
== END 2025-08-04 23:59 | disposition home or self-care (01) ==
PROVIDERS: PCP Family Medicine; Visit Provider Internal Medicine Medical Oncology
DX: D69.3 Immune thrombocytopenic purpura (principal)
CPT/HCPCS: 36415; 80053; 85025

== ENCOUNTER 2025-08-18 10:51 | Outpatient (CLI) | payer MEDICARE, BC, SELFPAY ==
--- OUTSIDE RECORDS SUMMARY | 2024-06-15 05:15 | XMS_ITS ---
[facility] Address [address] [facility] [address] [place] [id number] Care Team Providers Care Social Services Designee Name Role Phone Pasquale Girard Primary Care [address] [place] [phone] 06/15/2024 Pasquale Girard Anemia, unspecified type D64.9 [...] * Solo AMBROSEDOB:[birth year] (65 yo M)Acc No.[id number]:06/15/2024 Progress Notes Patient: Solo HERNANDEZ Provider: Sofia Girard M.D. :1960 A ge:64 Y S ex:Male Date:06/15/2024 Address:[address] [place] [address] , [place] , [id number] Subjective: * Chief Complaints: * 1 . [...] Artery Disease, LT Heart Cath, [facility] 06/2019, Hypertension, A Fib, Hyperlipidemia, Gout, ETOH abuse, Abnormal LFT's, Bilateral Inguinal Hernia, Diastolic Dysfunction, Echo, 09/2019, Osteoarthritis, anemia/GI bleed April 2023, Thrombocytopenia, s/p Heme/Onc evaluation at [facility], cirrhosis, s/p GI evaluation with Dr. [...] Fecal blood scrn immunoassay, Modifiers: QW , 75503 ASSAY TEST FOR BLOOD, FECAL, Modifiers: QW * Follow Up: v ia phone to report test results * Images: Billing Information: * Visit Code: 13353 Office Visit, Est Pt., Level 3. * Procedure Codes: G2211 Complex e/m visit add on. G0328 Fecal blood scrn immunoassay. Modifiers: QW 27308 ASSAY TEST FOR BLOOD, FECAL. Modifiers: QW * Electronic signature of Abbey Girard MD on 08/18/2025 at 10:55 AM EDT Sign off status: Pending * Provider: Sofia Girard M.D. Date: 0 06/15/2024 Generated for Azeb gill/Hudson/Ederansmitting on: 1 10:55 AM EDT History and Physical Notes * HPI (History of Present Illness) Category Sub-Category Detail Notes Category Not es HPI Here for follow up on: recent labs and CT scan, see pt docs Examination Category Sub-Category Detail Notes Category Not es General Examination General Appearance: NAD L abs and CT scan results reviewed with patient today in office
--- OUTSIDE RECORDS SUMMARY | 2024-06-20 04:45 | XMS_ITS ---
Author Organization [facility] Address 1210 [facility] 36 [facility] [address] [place] [phone] Care Team Providers Care Private Sector Executive Name Role Phone Pasquale Girard Primary Care Provider Results Component Value Reference Range Notes Hemoccult- IFOBT (in house) Reviewed date:06/20/2024 10:12:57 AM Interpretation:Positive Performing Lab: Notes/Report: Positive results positive REASON FOR VISIT stool sample Encounters Encounter Location Date Provider Diagnosis [facility] 12[address] [facility] [address] [place] [phone] 06/20/2024 Pasquale Girard Plan Of Treatment No Information Progress Notes * Solo AMBROSEDOB:[birth year] (65 yo M)Acc No.[id number]:06/20/2024 Patient: Solo HERNANDEZ Provider: Sofia Girard M.D. :1960 A ge:64 Y S ex:Male Date:06/20/2024 Address:[address] , [facility] Subjective: * Chief Complaints: * 1 . [...] Information: * Visit Code: * Procedure Codes: 24221 ASSAY TEST FOR BLOOD, FECAL. Modifiers: QW * Electronic signature of Abbey Girard MD on 08/18/2025 at 10:56 AM EDT Sign off status: Pending * Provider: Sofia Girard M.D. Date: 0 06/20/2024 Generated for Azeb gill/Hudson/Corrie on: 1 10:56 AM EDT
--- OUTSIDE RECORDS SUMMARY | 2024-06-22 07:30 | XMS_ITS ---
Author Organization [facility] Address [address] [facility] [address] [place] [phone] Care Team Providers Care Big Data Solutions Architect Name Role Phone Pasquale Girard Primary Care [...] 06/22/2024 Encounters Encounter Location Date Provider Diagnosis [facility] [address] [place], [place] [phone] 06/22/2024 Pasquale Girard Confusion R41.0 ; Anemia, [...] * Solo AMBROSEDOB:[birth year] (65 yo M)Acc No.[id number]:06/22/2024 Progress Notes Patient: Solo HERNANDEZ Provider: Sofia Girard M.D. :1960 A ge:64 Y S ex:Male Date:06/22/2024 Address:[address] [place] [address] Rd , [place] , [id number] Subjective: * Chief Complaints: * 1 . [...] C oronary Artery Disease, LT Heart Cath, [facility] 06/2019, Hypertension, A Fib, Hyperlipidemia, Gout, ETOH abuse, Abnormal LFT's, Bilateral Inguinal Hernia, Diastolic Dysfunction, Echo, 09/2019, Osteoarthritis, anemia/GI bleed April 2023, Thrombocytopenia, s/p Heme/Onc evaluation at [facility], cirrhosis, s/p GI evaluation with Dr. [...] * Images: Billing Information: * Visit Code: 08323 Office Visit, Est Pt., Level 4. * Procedure Codes: G2211 Complex e/m visit add on. * Electronic signature of Abbey Girard MD on 08/18/2025 at 10:57 AM EDT Sign off status: Pending * Provider: Sofia Girard M.D. Date: 0 06/22/2024 Generated for Azeb gill/Hudson/eTransmiván on: 1 10:57 AM EDT History and Physical Notes * [...]
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
--- OUTSIDE RECORDS SUMMARY | 2024-09-27 06:45 | XMS_ITS ---
Author Organization [facility] Address 1210 [facility] [address] [place] [phone] Care Team Providers Care Batch Freezer Name Role Phone Pasquale Girard Primary Care Provider [phone] Perera Lana Unavailable [phone] Allergies No Known Allergies Results Component Value Reference Range Notes P-Culture, Wound Aerobic w/G jojo Stain Reviewed date:10/01/2024 12:10:32 PM Interpretation: Performing Lab: Notes/Report: Test performed by [employer] [address] , [address], [place] [address] Jong Schneider MD, And Drying Supervisor Cooking Casing CLIA: [id number] Specimen Source Leg - Lower Right Leg [...] day(s) Active Santyl 250 UNIT/GM 1 application 5Th Grade Teacher ally Once a day 05/04/2024 Active Spironolactone [...] 09/27/2024 Active Mupirocin 2 % 1 application 5Th Grade Teacher ally qd; Duration: 30 days 09/27/2024 Active Vital Signs Weight 224.7 lbs 09/27/2024 Blood pressure systolic 130 mm Hg 09/27/20 24 Blood pressure diastolic 74 mm Hg 024 Heart Rate 87 /min 09/27/2024 Height 74 in 09/27/2024 BMI 28.85 kg/m2 09/27/2024 Encounters Encounter Location Date Provider Diagnosis [facility] [address] [facility] [address] [place] [phone] 09/27/2024 Lana Perera Cellulitis of right leg [...] day(s) 09/27/2024 Mupirocin 2 % 1 application 5Th Grade Teacher ally qd; Duration: 30 days 09/27/2024 Treatment Notes Assessment Notes Cellulitis of right leg elevate the leg as much as possible Wound of right lower extremi ty, subsequent encounter keep wound dry with showering; apply mupirocin around edges of the wound ; keep covered Next Appt Details Follow Up: 1 Week, Reason: Progress Notes * Solo AMBROSEDOB:[birth year] (65 yo M)Acc No.[id number]:09/27/2024 Progress Notes Patient: Solo HERNANDEZ Provider: CHARLES Villegas :1960 A ge:64 Y S ex:Male Date:09/27/2024 Address:[address] [place] [address] , [facility] y , [id number] Pcp:Pasquale Girard Subjective: * Chief Complaints: * 1 . Leg wound possible infection. * HPI: D ermatology: 64 year old male presents with c/o ulcer. c/o redness.? c/o Wound P t complains of lower rt leg wound. Pt had been going to [facility] wound clinic but stopped because wound [...] C oronary Artery Disease, LT Heart Cath, [facility] 06/2019, Hypertension, A Fib, Hyperlipidemia, Gout, ETOH abuse, Abnormal LFT's, Bilateral Inguinal Hernia, Diastolic Dysfunction, Echo, 09/2019, Osteoarthritis, anemia/GI bleed April 2023, Thrombocytopenia, s/p Heme/Onc evaluation at [facility], cirrhosis, s/p GI evaluation with [...] * Images: Billing Information: * Visit Code: 08170 Office Visit, Est Pt., Level 4. * Procedure Codes: G2211 Complex e/m visit add on. * Electronic signature of Viridiana Perera APRN on 08/18/2025 at 10:56 AM EDT Sign off status: Pending * Provider: CHARLES Villegas Date: 11/27/2023 Generated for Azeb gill/Hudson/Alisitting on: 10:56 AM EDT History and Physical Notes [...] leg wound. Pt had been going to [facility] wound clinic but stopped because wound [...]
--- OUTSIDE RECORDS SUMMARY | 2024-10-04 07:15 | XMS_ITS ---
Author Organization [facility] Address 1210 [facility] [address] [place] [phone] Care Team Providers Care Junior High School Teacher Name Role Phone Pasquale Girard Primary Care Provider Lana Perera Unavailable [phone] Allergies No Known Allergies REASON FOR VISIT 1 week Medications Medication SIG (Take, Route, Frequency, Duration) Notes Start Date End Date Status Xarelto 15 MG 1 tablet with food O rally Once a day; Duration: 30 day(s) Active Silvadene 1 % 1 application Biodiesel Technology Manager ally Once a day; Duration: 30 days 10/04/2024 Active Spironolactone 50 MG 1 tablet Orally Two times a day; Duration: 30 days Active Bisoprolol Fumarate 10 MG 1 tablet Orall y Once a day; Duration: 30 day(s) Active Mupirocin 2 % 1 application Biodiesel Technology Manager ally qd; Duration: 30 days 09/27/2024 Active levoFLOXacin 500 MG 1 tablet Orally Once a day Active Vital Signs Weight 229.2 lbs 10/04/2024 Blood pressure systolic 130 mm Hg 10/04/20 24 Blood pressure diastolic 80 mm Hg 024 Heart Rate 62 /min 10/04/2024 Height 74 in 10/04/2024 BMI 29.42 kg/m2 10/04/2024 Encounters Encounter Location Date Provider Diagnosis [facility] 1210 [facility] [address] [place] [phone] 10/04/2024 Lana Perera Cellulitis of right leg [...] Date Notes Silvadene 1 % 1 application Biodiesel Technology Manager ally Once a day; Duration: 30 [...] * Solo AMBROSEDOB:[birth year] (65 yo M)Acc No.[id number]:10/04/2024 Progress Notes Patient: Solo HERNANDEZ Provider: CHARLES Villegas :1960 A ge:64 Y S ex:Male Date:10/04/2024 Address:[address] [place] [address] , [facility] , [id number] Pcp:Pasquale Girard Subjective: * Chief Complaints: * [...] C oronary Artery Disease, LT Heart Cath, [facility] 06/2019, Hypertension, A Fib, Hyperlipidemia, Gout, ETOH abuse, Abnormal LFT's, Bilateral Inguinal Hernia, Diastolic Dysfunction, Echo, 09/2019, Osteoarthritis, anemia/GI bleed April 2023, Thrombocytopenia, s/p Heme/Onc evaluation at [facility], cirrhosis, s/p GI evaluation with [...] HR:62, O2 Sat:100% on RA, Nurse:[facility], Ht: 74, BMI:29.42. * Examination: G eneral [...] * Images: Billing Information: * Visit Code: 63592 Office Visit, Est Pt., Level 3. * Procedure Codes: 77490 PULSE OX. G2211 Complex e/m visit add on. * Electronic signature of Viridiana Perera APRN on 08/18/2025 at 10:57 AM EDT Sign off status: Pending * Provider: CHARLES Villegas Date: 1 12/05/2023 Generated for Azeb gill/Hudson/Corrie on: 1 10:57 AM EDT History and [...]
--- OUTSIDE RECORDS SUMMARY | 2024-11-17 06:00 | XMS_ITS ---
Author Organization Jannie Address 1210 [facility] [address] [place] [phone] Care Team Providers Care Registered Nurse Teacher Name Role Phone Pasquale Girard Primary [...] Encounter Location Date Provider Diagnosis Zander 1210 [facility] [address] [place] [id number] 11/17/2024 Pasquale Girard Pre-op exam Z01.818 ; Arthritis of left knee M17.12 ; Anemia, unspecified type D64.9 ; Thyromegaly E01.0 ; Coronary artery disease involving [place] coronary artery of [place] heart without angina pectoris I25.10 ; Type 2 diabetes mellitus without complication, unspecified whether penitentiary insulin use E11.9 ; Mixed hyperlipidemia E78.2 [...] - E01.0) 11/17/2024 Coronary artery disease involving [place] coronary artery of [place] heart without angina pectoris (ICD-10 - I25.10) 11/17/2024 Type 2 diabetes mellitus without complication, unspecified whether penitentiary insulin use (ICD-10 - E11.9) 11/17/2024 Mixed [...] * Solo AMBROSEDOB:[birth year] (65 yo M)Acc No.[id number]:11/17/2024 Physical Patient: Solo HERNANDEZ Provider: Sofia Girard M.D. :1960 A ge:64 Y S ex:Male Date:11/17/2024 Address:[address] [place] [address] , [facility] y , [id number] Subjective: * Chief Complaints: * 1 . [...] C oronary Artery Disease, LT Heart Cath, [facility] 06/2019, Hypertension, A Fib, Hyperlipidemia, Gout, ETOH abuse, Abnormal LFT's, Bilateral Inguinal Hernia, Diastolic Dysfunction, Echo, 09/2019, Osteoarthritis, anemia/GI bleed April 2023, Thrombocytopenia, s/p Heme/Onc evaluation at [facility], cirrhosis, s/p GI evaluation with [...] E01.0? 5. C oronary artery disease involving [place] coronary artery of [place] heart without angina pectoris - I25.10 6 . T ype 2 diabetes mellitus without complication, unspecified whether penitentiary insulin use - E11.9 7 . M [...] * Images: Billing Information: * Visit Code: 86301 Office Visit, Est Pt., Level 4. * Procedure Codes: G2211 Complex e/m visit add on. * Electronic signature of Abbey Girard MD on 08/18/2025 at 10:56 AM EDT Sign off status: Pending * Provider: Sofia Girard M.D. Date: 0 11/17/2024 Generated for Printi ng/Faxing/eTransmitting on: 1 10:56 AM EDT History and [...]
--- OUTSIDE RECORDS SUMMARY | 2025-06-07 07:00 | XMS_ITS ---
[facility] Organization [facility] Address [address] [facility] [address] [place] [id number] Care Team Providers Care Market Manager Name Role Phone Pasquale Girard Primary [...] date:06/08/2025 09:51:05 AM Interpretation:Normal Performing Lab: Notes/Report: Test performed by [employer] [address] [place] [address] , [address], [place] [address] Jong Schneider MD, Cullet Crusher And Washer CLIA: [id number] Albumin/Creatinine Ratio, Urine <3.69 0-30 ug/m g [...] W/U Status Risk Notes Problem Alcoholic cirrhosis (500246297) Alcoholic cirrhosis of liver with ascites (K70.31) Active confirmed Problem Body mass index 30+ - obesity (687322303) BMI 30.0-30.9,adul t (Z68.30) Active confirmed Vital Signs Weight 236.3 lbs 06/07/2025 Blood pressure systolic 122 mm Hg 06/07/20 25 Blood pressure diastolic 70 mm Hg 025 Heart Rate 76 /min 06/07/2025 Height 74 in 06/07/2025 BMI 30.34 kg/m2 06/07/2025 Encounters Encounter Location Date Provider Diagnosis [facility] [address] [facility] [address] [place] [address], [place] [phone] 06/07/2025 Pasquale Girard HTN (hypertension) I 10 [...] Notes * HALIESoloDOB:[birth year] (65 yo M)Acc No.[id number]:06/07/2025 Progress Notes Patient: Solo HERNANDEZ Provider: Sofia Girard M.D. :1960 A ge:65 Y S ex:Male Date:06/07/2025 Address:[address] , [id number] Subjective: * Chief Complaints: * 1 . [...] with ascites - K70.31 5 . B [place] 30.0-30.9,adult - Z68.30 Plan: * Treatment: Value [...] Follow Up: 1 Year * Images: Drawing:main [place] [facility] 2024 Billing Information: * Visit Code: 91610 Office Visit, Est Pt., Level 3. * [...] Girard M.D. Date: 0 06/07/2025 Generated for Azeb gill/Jedg/eTransmitting on: 1 10:55 AM EDT History and [...]
--- OUTSIDE RECORDS SUMMARY | 2025-07-19 22:34 | XMS_ITS | Continuity of Care Document ---
Author Organization [facility] Phone Care Team Providers Care Receipt And Report Clerk Name Role Phone CASE, PEDRO Medina Surgeon CASE, PEDRO Medina Admitting JADA CORTEZ Primary Care CASE, PEDRO Carol Primary Attending ALLERGIES AND ADVERSE REACTIONS ALLERGIES AND ADVERSE REACTIONS Code System Allergy Substance Adverse Reaction Date Reaction (Severity) Comment Status Reported By Updated By No Known Allergies [email or web address] on July 14, 2025 10:55:18 AM [facility] FAMILY HISTORY RELATION: Father Status: Cause of : Unknown Age at : 36 SNOMED-CT Diagnosis Age At Onset [id number] Malignant neoplastic disease RELATION: Mother Status: Cause of : Unknown Age at : Unknown SNOMED-CT Diagnosis Age At Onset [id number] Heart disease [id number] Diabetes mellitus RESULTS Patient: LUCIUS ART Date of : 1960 2 LABORATORY RESULTS Information is not available LABORATORY NARRATIVE RESULTS Information is not available RADIOLOGY RESULTS Information is not available PATHOLOGY NARRATIVE RESULTS ORDER 200: PATHOLOGY SPECIME N (LOINC: 91872-4) ORDER DATE: July 14, 2025 12:07:00 PM [facility] Specimen Source: PATH Specimen Type: Refer to path ology laboratory PERFORMING LAB: [address] [id number] Final Result Date: July 19, 2025 4:21:00 PM [facility] (TECH: TGD) TEST: PATHOLOGY SPECIMEN SEE REPORT MICROBIOLOGY RESULTS No Micro Labs/Results Exist for Patient BLOOD ADMIN RESULTS Information is not available MEDICATIONS HOME MEDICATIONS Status RXNORM [facility] Medication Dose Route Frequency Dates Comments Reported By Updated By [facility] [id number] 52980 0 Dexlansopraz ole Oral Capsule Delayed Release 60 MG 60.0 MG ORAL DAILY Last Dose: [facility] 2024 12:00:0 0 PM [facility] [id number] on [facility] 2024 10:51:16 AM [facility] Active 024171 88885 61459 1 Bisoprolol Fumarate Oral Tablet 5 MG 1.0 TAB ORAL DAILY Last Dose: [facility] 2024 12:00:0 0 PM [facility] [id number] on [facility] 2024 10:50:40 AM [facility] Active 110971 96858 82409 1 Spironolacto ne Oral Tablet 50 MG 1.0 TAB ORAL Q48H Last Dose: [facility] 2024 12:00:0 0 PM [facility] [id number] on [facility] 2024 10:52:38 AM [facility] DISCHARGE MEDICATIONS Status RXNORM [facility] Medication Dose Route Frequency Dates Dis pense Data Comments Physician Updated By No Discharge Medication Info rmation Available INPATIENT MEDICATIONS Status RXNORM [facility] Medication Dose Route Frequency Rat e Quantity Dates Indication Dispense Data Comments Physician Updated By Discont inued [id number] 4594 8011 704 LACTATED RINGERS SOLN 1000. 0 ML INTRAV ENOUS ONE TIME ADMINISTRA TION (UNSCHEDUL ED) 25.0 ML/HR Start: 2024 7:29:0 0 PM [place] End: 2024 6:25:0 0 PM [facility] SETH Salazar [id number] on [facility] 2024 4:25:00 AM [facility] Discont inued 7151120 0033 8004 904 sodium chloride 0.9% SOLN 1000. 0 ML INTRAV ENOUS ONE TIME ADMINISTRA TION (UNSCHEDUL ED) 25.0 ML/HR Start: 2024 7:29:0 0 PM [place] End: 2024 6:25:0 0 PM [facility] SETH Salazar [id number] on [facility] 2024 4:25:00 AM [facility] Discont inued 9039202 1791 5034 542 PROPOFOL 500 MG/50ML EMUL 500.0 MG INTRAV ENOUS ONE TIME ONLY (SCHEDULED DOSE) 20.833 MG/HR Start: 2024 1:05:0 0 PM UTC End: 2024 6:25:0 0 PM UTC CASE PEDRO Medina [id number] on 2024 1:07:00 PM UTC Discont inued 7605188 0861 3020 202 LIDOCAINE HCL 2 % SOLN 2.0 ML ONE TIME ONLY (SCHEDULED DOSE) 0.083 ML/HR Start: 2024 1:06:0 0 PM UTC End: 2024 6:25:0 0 PM UTC CASE PEDRO Medina [id number] on 2024 1:07:00 PM UTC SOCIAL HISTORY SOCIAL HISTORY - Smoking Status SNOMED-CT Social History Element Description Effective Dates Offered Cessation Comment Updated By [id number] Current Tobacco smoking status Never Smoked [id number] on July 07, 2025 4:23:27 PM UTC SOCIAL HISTORY - Gender Sex: Male SOCIAL HISTORY - Status : status i nformation is not available Intention in Next Year: intention information is not available SOCIAL HISTORY - Assessments Code System Description Status Date Value of Assessment Updated By Comment Assessment Information is no t available SOCIAL HISTORY - [place] Affiliation [place] information is not av ailable SOCIAL HISTORY - Legal Sex Legal Sex information is not available SOCIAL HISTORY - Sexual Behavior Sexual Orientation Gender Identity SNOMED-CT Description SNO MED -CT Description Activity Level No of Partners Partner Type UpdatedBy Information is not available SOCIAL HISTORY - Occupation Occupation information is no t available VITAL SIGNS PATIENT VITAL SIGNS This section displays the mo st recent value for each vital sign as of July 20, 2025 2:34:28 AM [place] Loinc Code Vital Sign Activity Date Result Updated By 8302-2 Body height July 14 10:55:44 AM UTC 185.42 cm (73.0 in) [id number] on July 14, 2025 10:55:[place] [address]-6 Body mass index (BMI) [Ratio] July 14, 2025 10:55:44 AM UTC 31.617 kg/m2 3140-1 Body Surface Area Derived From Formula July 14, 2025 10:55:44 AM UTC 2.3237 m2 33110-4 Body weight Measured July 14, 2025 10:55:44 AM UTC 108.7 kg (240.0 lb) [id number] on July 14, 2025 10:55:44 AM [place] PEDIATRIC GROWTH CHART - VITAL SIGNS This section displays Head C ircumference Percentile, Weight for Length Percentile and BMI Percentile Loinc Code Pediatric Measure Age (Months) Result Updat ed By No Pediatric Growth Chart Pe rcentile Information Available. HEALTH CONCERNS Problems Concern Status Health Concern problem infor mation not available. Smoking Status Status Years Used Consumed packs p er day Health Concern smoking histo ry information not available. Family History Concern Status Health Concern family histor y information not available. MEDICAL EQUIPMENT MEDICAL EQUIPMENT Device Status Quantity Dates Procedure Comments Updated By Orthopedic cement milan CHAU: ()[id number] Assigning Authority: FDA Device Identifier:[id number] Lot or Batch Number:[id number] Expiration Date:2026-04-01 ACTIVE Implanted: January 02, 2025 [id number] on January 02, 2025 2:48:54 PM UTC Polyethylene patella prosthesis CHAU: ()[id number] Assigning Authority: FDA Device Identifier:[id number] Lot or Batch Number:[id number] Expiration Date:2029-10-01 ACTIVE Implanted: January 02, 2025 [id number] on January 02, 2025 3:23:57 PM UTC Knee femur prosthesis CHAU: ()[id number] Assigning Authority: FDA Device Identifier:[id number] Lot or Batch Number:[id number] Expiration Date:2034-05-01 ACTIVE Implanted: January 02, 2025 [id number] on January 02, 2025 3:24:43 PM UTC Uncoated knee tibia prosthesis, metallic CHAU: ()[id number] Assigning Authority: FDA Device Identifier:[id number] Lot or Batch Number:[id number] Expiration Date:2034-06-01 ACTIVE Implanted: January 02, 2025 [id number] on January 02, 2025 3:25:21 PM UTC Tibial insert CHAU: ()[id number] Assigning Authority: FDA Device Identifier:[id number] Lot or Batch Number:[id number] Expiration Date:2029-03-01 ACTIVE Implanted: January 02, 2025 [id number] on January 02, 2025 3:26:01 PM UTC ENCOUNTERS ENCOUNTER INFORMATION Reason for Visit EGD Admission July 14, 2025 10:25:00 AM U TC [facility] [address] [facility] [address] Discharge July 14, 2025 6:25:00 PM UT C DISCHARGED TO HOME OR SELF CARE ENCOUNTER DIAGNOSES Notes information is not tera ilable. Code System Diagnosis Onset Date Diagnosis information is not available. ABSTRACT DIAGNOSES Code System Diagnosis Updated By Abatement Date K74.60 ICD10 UNSPECIFIED CIRRHOSIS OF [place] ER [id number] on July 18, 2025 2:31:51 PM UT K31.7 ICD10 POLYP OF STOMACH AND DUODENU M [id number] on July 18, 2025 2:31:51 PM UT K22.89 ICD10 OTHER SPECIFIED DISEASE OF ES[place] [id number] on July 18, 2025 2:31:51 PM [facility] K31.89 ICD10 OTHER DISEASES O F STOMACH AND DUODENUM [id number] on July 18, 2025 2:31:51 PM [facility] K74.60 ICD10 UNSPECIFIED CIRRHOSIS OF [place] ER [id number] on July 18, 2025 2:31:51 PM [facility] I25.10 ICD10 ATHEROSCLEROTIC HEART DISEASE OF [place] CORONARY ARTERY WITHOUT ANGINA PECTORIS [id number] on July 18, 2025 2:31:51 PM UT Z95.820 ICD10 PERIPHERAL VASCU LAR ANGIOPLASTY STATUS WITH IMPLANTS AND GRAFTS [id number] on July 18, 2025 2:31:51 PM [facility] I10 ICD10 ESSENTIAL (PRIMA RY) HYPERTENSION [id number] on July 18, 2025 2:31:51 PM UT K21.9 ICD10 GASTRO-ESOPHAGEA L REFLUX DISEASE WITHOUT ESOPHAGITIS [id number] on July 18, 2025 2:31:51 PM [facility] R18.8 ICD10 OTHER ASCITES [id number] on Jul 2:31:51 PM [facility] Z96.652 ICD10 PRESENCE OF LEFT ARTIFICIAL KNEE JOINT [id number] on July 18, 2025 2:31:51 PM [facility] Z79.899 ICD10 OTHER HYDRAULICS ENGINEER (CURRENT) DRUG THERAPY [id number] on July 18, 2025 2:31:51 PM [facility] CARE TEAM Care Receipt And Report Clerk Role PEDRO SALEH Surgeon PEDRO SALEH Admitting JADA CORTEZ Primary Care PEDRO SALEH Primary Attending CARE TEAM CARE patient accounts coordinator Role on Team Location Telecom Status Start Date End David e Updated By CASE PEDRO LOPEZ Surgeon normal July 14, 2025 10:25:00 AM UTC July 14, 2025 6:25:00 PM UTC [id number] on July 18, 2025 2:31:56 PM UTC DANA ELIAS PCP normal June 27, 2025 8:31:31 PM UTC July 14, 2025 6:25:00 PM UTC [id number] on July 18, 2025 2:31:56 PM UTC CASE PEDRO LOPEZ Attending normal June 27, 2025 8:31:31 PM UT July 14, 2025 6:25:00 PM UTC [id number] on July 18, 2025 2:31:56 PM UTC CASE PEDRO LOPEZ Admitting normal June 27, 2025 8:31:31 PM UT July 14, 2025 6:25:00 PM UTC [id number] on July 18, 2025 2:31:56 PM UTC
--- OUTSIDE RECORDS SUMMARY | 2025-08-18 10:56 | XMS_ITS | Clinical Summary ---
Author Organization Healthcare Address [address] [place] [address] Care Team Providers Care Instructional Coach Name Role Phone Pasquale Girard MD Primary Care Provider [phone] Allergies No known active allergies Medications bisoprolol [...] Influenza, seasonal, injectable 08/19/2021 Moderna COVID-19 Vaccine (Poultry Hanger) 12+ years ,12/27/2020 Social History Tobacco Use [...] - Risk 60-74 years 1-dose series) 2019 [id number] Vaccine (3 - season) 2025 01/24/2021, 12/27/2020 [...] ORDERABLES Final Resu lt [facility] [address] [place] [address] from Last 3 Months or Most Recently Relevant to Health Maintenance [place] [phone] Advance Directives * Full Code (Latest Code Status on File) Date Activated Date Inactivated Comments 08/01/2023 3:26 PM 08/06/2023 6:04 PM Question Answer Comments Patient has decision-making capacity? Yes Care Teams Instructional Coach Relationship Specialty Start Date End Date Pasquale Girard MD [address] [facility] [address] [place] [address] PCP - General 5/14/21
--- OUTSIDE RECORDS SUMMARY | 2025-08-18 10:56 | XMS_ITS | Data Portability ---
Author Organization [facility] [place] [facility] Address [address] [facility] [address] [place] [address] Assessment Encounter Date Assessment Date Assessment LastModified [...] 1 % topical gel 2017 018 INTERFACE [employer] #[id number], [address] [place], [place], [id number], 8 10:08:42 Patient TargetsNo targets recorded. Patient Instructions Encounter Date Encounter Id Patient Instructions Last Modified By Organization Details Last Modified Time 12/24/2017 [id number] shoulder arthrit is: exercises [email or web address] Not available [...] situation. [email or web address] Not available 12/25/2017 07:56:08 12/29/2017 [id number] shoulder arthrit is: exercises [email or web address] Not available 12/29/2017 10:07:12 Reason for Referral None Reported. Results Created Date Observation Date Name Description Value Unit Range Abnormal Flag Note LastModifiedBy Organization Detail LastModifiedTime 12/24/19 18 12/24/2017 XR, silvianoul aishwarya, 2 or more view Teena song [facility] Jessica pa [address] [place] [address] Paticelsa t Name: KAELYN garcia : 959 [...] Sahu MD on 018 2:57 PM [email or web address] [facility] [place] [address], [place], [address], 12/24/2017 16:31:00 02/27/20 18 12/29/2017 rf lt shoul aishwarya stero id injec tion [address] [address] Paticelsa t Name: KAELYN KRAUS Paticelsa t [...] [place] 0270-1 315-30 [facility] [place] [address]- 165-05 [facility] [address]- [address]10-5 0 IMPRES FRANCISCA: 1. The patien t is status post left should er arthro gram with dexame thason e and bupiva ed inject ion withou t compli cation . Interp reted By: Yo castillo MD Electr onical ly Signed By: Yo castillo MD on 018 12:[address] [facility] [address] [place], [address], 12/29/2017 18:14:15 Result Notes Documentation Provider Name and Address Organization Details Recorded Time Xr, Shoulder, 2 Or More View : [facility] [place] [address] [place] [address] Patient Name: KAELYN KAN Patient : 1960 [...] By: Kaelyn Sahu MD Carol THOMAS MD [address] [place] [address], [phone], [facility] 12/24/2017 16:31:00 Procedures Surgical History Date Name Laterality Status Provider Name and Address Organization Details Recorded Time Orthopedic Surgery completed [facility] 12/24/2017 14:09:47 Imaging Results None recorded. Procedure [...] Updated DateTime 12/24/2017 187.96 cm 29.5 kg/m2 651542.25 g 142/82 mm[Hg] [facility] 12/24/2017 14:07:23 Date Recorded Body height Body mass index (BMI) Body weight Systolic And Diastolic Provider Name and Address Organization Details Last Updated DateTime 12/29/2017 187.96 cm 29.5 kg/m2 936711.25 g 165/104 mm[Hg] Mariel Brown [facility] 12/29/2017 09:48:14 Social History Question Answer Notes LastModified by Organizat ion Details LastModified Time Tobacco Smoking Status Never Smoker Hiwot Brown yuki [facility] 12/24/2017 14:09:39 What Was The Date [...] ICD10 Code Diagnosis IMO Codes Diagnosis Note [id number] W DARYA THOMAS MD [facility] [address] [place] [address] 12/24/2017 13:55:33 12/24/2017 15:58:56 Localized, primary osteoarthritis of the shoulder region 521646124 M19.429 [id number] CHRISTIANO VILLEGAS MD [facility] [address] [place] [address] 12/29/2017 09:32:32 12/29/2017 11:08:54 Localized, primary osteoarthritis of the shoulder region 436456417 M19.019 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 Carol THOMAS MD [address] [place] [address], [phone], [facility] 12/28/2017 07:56:38 12/29/2017 text/html ROS [...] Uses Indomethacin for pain CHRISTIANO VILLEGAS MD [address] [place] [address], [phone], [facility] 12/29/2017 10:09:31
--- OUTSIDE RECORDS SUMMARY | 2025-08-18 10:56 | XMS_ITS | Clinical Summary ---
Author Organization DANIEL LILA OD Address [facility] [place] [address] Phone Care Team Providers Care Application Tester Name Role Phone Unavailable Primary Care Provider [...]
--- OUTSIDE RECORDS SUMMARY | 2025-08-18 10:56 | XMS_ITS | Patient Health Record ---
[facility] [address] [facility] [address] [place] [id number] Care Team Providers Care Collator Name Role Phone Pasquale Girard Primary Care Provider PereraLana worthington Unavailable [phone] Allergies No Known Allergies Results Component Value [...] Interpretation:Normal Performing Lab: Notes/Report: Test performed by [facility] , [address], [place] [address] Jong Schneider MD, Wealth Management Advisor CLIA: [id number] Albumin/Creatinine Ratio, Urine <3.69 0-30 ug/mg Microalbumin, Urine, Random <0.3 Creatinine, Urine 81.1 H-TSH Reviewed date:06/08/2025 09:51:05 AM Interpretation:Normal Performing Lab: Notes/Report: TSH 2.35 0.465-4.68 uIU/mL P-Culture, Wound Aerobic w/G jojo Stain Reviewed date:10/01/2024 12:10:32 PM Interpretation: Performing Lab: Notes/Report: CLIA: [id number] Jong Schneider MD, Wealth Management Advisor [address] [place] [address] , [address] , [place] [address] Test performed by [employer] Specimen Source Leg - Lower Right Leg [...] Status Risk Notes Problem Nondependent alcohol abuse (367348830) EtOH [Ethanol] abuse NOS (305.00) Active confirmed Problem Abnormal liver function (77929195) Abnormal liver function study (794.8) Active confirmed Problem Essential hypertension (73641854) Essential (primary) hypertension (I10) Active confirmed Problem Hypertension (57828135) HTN (hypertension) (I10) Active confirmed Problem Vitamin D deficiency (19870568) Vitamin D deficiency (E55.9) Active confirmed Problem Hypertriglyceridemia (974967192) Hypertriglyceridemia (E78.1) Active confirmed Problem Abnormal results of liver function studies (410390436) Abnormal results of liver function studies (R94.5) Active confirmed Problem Body mass index 30+ - obesity (022690886) BMI 30.0-30.9,adult (Z68.30) Active confirmed Problem Mixed hyperlipidemia (395322079) Mixed hyperlipidemia (E78.2) Active confirmed Problem Mitral valve disorde r (40484259) Nonrheumatic mitral (valve) insufficiency (I34.0) Active confirmed Problem Ventricular prematur e depolarization (531563260) Ventricular premature depolarization (I49.3) Active confirmed Problem Alcoholic cirrhosis (151593750) Alcoholic cirrhosis of liver with ascites (K70.31) Active confirmed Problem Gout (81156421) Gout, unspecifie d (M10.9) Active confirmed Problem Male erectile disorder (812532593) Male erectile disorder (N52.9) Active confirmed Problem Chronic pain (43120701) Other chronic pain (G89.29) Active confirmed Problem Atherosclerosis of coronary artery without angina pectoris (213771279565816) Atherosclerosis of [place] coronary artery of [place] heart without angina pectoris (I25.10) Active confirmed Problem Thrombocytopenia (275327033) Thrombocytopenia (D69.6) Active confirmed Problem Atherosclerotic hear t disease of [place] coronary artery without angina pectoris (730494818922680) Coronary artery disease involving [place] coronary artery of 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) Active confirmed Problem Sciatica (96217478) Right-sided low back pain with right-sided sciatica, unspecified chronicity (M54.41) Active confirmed Problem Gastrointestinal hemorrhage (61005627) Gastrointestinal hemorrhage, unspecified gastrointestinal hemorrhage type (K92.2) Active confirmed Problem Thyromegaly (8951586) Thyromegaly (E01.0) Active confirmed Problem Acute on chronic diastolic heart failure (535278285) Acute on chronic diastolic congestive heart failure (I50.33) Active confirmed Problem Arthritis of left knee (5386215051988536) Arthritis of left knee (M17.12) Active confirmed Problem Type II diabetes mellitus without complication (766347659) Type 2 diabetes mellitus without complication, unspecified whether rn long term care insulin use (E11.9) Active confirmed Problem Diastolic dysfunctio n (0072274) Diastolic dysfunction (I51.89) Active confirmed Problem Bradyarrhythmia (947325843) Bradyarrhythmia (I49.8) Active confirmed Problem Cardiac arrhythmia (249109758) Bigeminy (I49.8) Active confirmed Problem Chronic idiopathic thrombocytopenic purpura (disorder) (80605531) Idiopathic thrombocytopenic purpura (ITP) (D69.3) Active confirmed Vital Signs Heart Rate 76 /min 06/07/2025 Blood pressure diastolic 70 mm Hg 06/07/2025 Height 74 in 06/07/2025 Blood pressure systolic 122 mm Hg 06/07/2025 Weight 236.3 lbs 06/07/2025 BMI 30.34 kg/m2 06/07/2025 Encounters Encounter Location Date Provider Diagnosis [facility] [address] [facility] [address] [place] [id number] 09/27/2024 Lana Perera Cellulitis of right leg L03.115 and Wound of right lower extremity, subsequent encounter [id number] [facility] [facility] [address] [place] [id number] 10/04/2024 Lana Perera Cellulitis of right leg L03.115 and Wound of right lower extremity, subsequent encounter [id number] [facility] [address] [place] [id number] 11/17/2024 [place]quale [place] Pre-op exam Z01.818 ; Arthritis of left knee M17.12 ; Anemia, unspecified type D64.9 ; Thyromegaly E01.0 ; Coronary artery disease involving [place] coronary artery of [place] heart without angina pectoris I25.10 ; Type 2 diabetes mellitus without complication, unspecified whether chcf insulin use E11.9 ; Mixed hyperlipidemia E78.2 ; HTN (hypertension) I10 ; Gastroesophageal reflux disease, esophagitis presence not specified K21.9 ; Gout, unspecified M10.9 and Open wound of right lower extremity, subsequent encounter [id number] [facility] [address] [facility] [address] [place] [id number] 06/07/2025 [place]quale [place] HTN (hypertension) I 10 ; Hyperglycemia R73.9 ; Idiopathic thrombocytopenic purpura (ITP) D69.3 ; Alcoholic cirrhosis of liver with ascites K70.31 and BMI 30.0-30.9,adult Z68.30 [facility] [address] [facility] [address] [place] [id number] 08/18/2024 [place] [facility] [address] [place], [place] [id number] 09/30/2024 Lana Perera Wound of right lower extremity, subsequent encounter [id number] [facility] [address] [place], [place] [id number] 04/07/2025 [place]ale [place] [facility] [address] [place], [place] [id number] 05/24/2025 [place]ale [place] [facility] [address] [place], [place] [id number] 06/08/2025 [place]ale [place] Assessments Encounter Date Diagnosis (ICD Code) Assessment Notes Treatment Notes Treatment Clinical Notes Section Notes 11/17/2024 Arthritis of left knee (ICD-10 - M17.12) 11/17/2024 Pre-op exam (ICD-10 - Z01.818) PATIENT IS CLEARED FOR SURGERY, BUT HE IS AT LEAST AT MODERATE RISK FOR PERIOPERATIVE AND POSTOPERATIVE COMPLICATIONS. 09/27/2024 Cellulitis of right leg (ICD-10 - [...] edges of the wound ; keep covered 06/07/2025 Hyperglycemia (ICD-10 - R73.9) 06/07/2025 HTN (hypertension) (ICD-10 - I10) 11/17/2024 Anemia, unspecified type (ICD-10 - D64.9) 06/07/2025 Idiopathic thrombocytopenic purpura (ITP) (ICD-10 - D69.3) 06/07/2025 Alcoholic cirrhosis of liver with ascites (ICD-10 - K70.31) 11/17/2024 Thyromegaly (ICD-10 - E01.0) 06/07/2025 BMI 30.0-30.9,adult (ICD-10 - Z68.30) 11/17/2024 Coronary artery disease involving [place] coronary artery of [place] heart without angina pectoris (ICD-10 - I25.10) 11/17/2024 Type 2 diabetes mellitus without complication, unspecified whether rn long term care insulin use (ICD-10 - E11.9) 11/17/2024 Mixed [...] Date MEDICARE PART B [address] [address] [place] [id number] [id number] Solo Burch Self - patient is the insured [facility] [address] [place] [address] [id number] Solo Burch Self - patient is the insured Medications Administered Medication Instructions Date of Administration Dosage Notes Depo- Medrol 40 mg/ml 09/01/2016 1 mL Medical (General) History Medical History History ICD Code Coronary Artery Disease, LT Heart Cath, [facility] 06/2019 Hypertension A Fib Hyperlipidemia Gout ETOH abuse Abnormal LFT's Bilateral Inguinal Hernia Diastolic Dysfunction, Echo, 09/2019 Osteoarthritis anemia/GI bleed April 2023 Thrombocytopenia, s/p Heme/Onc evaluatio n at [facility] cirrhosis, s/p GI evaluation with Dr. Alivia batres DVT, Right leg, 2023 Immune Thrombocytopenia Purpura Surgical History Surgery Date(Month/Year) LT Shoulder Replacement 2005 Bilateral inguinal hernia repair 013 Percutaneous Coronary Intervention, 3 St ents Placed 06/2019 Rotator Cuff Tear Repair 02/18/2022 umbilical hernia repair - At 08/2023 Hospitalization History Reason Date(Month/Year)
--- OUTSIDE RECORDS SUMMARY | 2025-08-18 10:56 | XMS_ITS | Clinical Summary ---
Author Organization [facility] Address [address] [place] [address] Care Team Providers Care Knockdown Worker Name Role Phone Pasquale Girard MD Primary Care Provider + [phone] Allergies No known active allergies Medications losartan [...] History Relation Name Comments Diabetes Brother Ed aHlie Relation Name Status Comments Brother Ed Halie [...] 2025, 12/27/2020 Medical Devices Implanted Type Area Organic Section Technical Lead Device Identifier Shelf Expiration Date Model / Serial / Lot Cmt Bone [id number] 20gm - [id number] Implanted:Qt y: 1 on 02/19/2022 by Sam Massey MD at [facility] Implant Right: Shoulder DEPUY [id number] 12/30/2022 [id number] / / [id number] Sut Fw #2 W/Tpr Ndl 1/2 Cir 38in 97cm 26.5mm Blair - [id number] Implanted:Qt y: 3 on 02/19/2022 by Sam Massey MD at [facility] Implant Right: Shoulder ARTHREX 03/01/2026 [id number] / / [id number] [place] Aug Aequalis Performplus Cortiloc Peg Cocr 15d Lg Rt - [id number] - [id number] Implanted:Qt y: 1 on 02/19/2022 by Sam Massey MD at [facility] Implant Right: Shoulder TORNIER [id number] 09/10/2025 [id number] / [id number] / Nucleus Shldr Simpliciti Sz2 - [id number] - [id number] Implanted:Qt y: 1 on 02/19/2022 by Sam Massey MD at [facility] Implant Right: Shoulder TORNIER 11/26/2026 [id number] / [id number] / NA Hd Hum/Shldr Simpliciti [id number] - [id number] - [id number] Implanted:Qt y: 1 on 02/19/2022 by Sam Massey MD at [facility] Implant Right: Shoulder TORNIER 08/28/2026 [id number] / [id number] / NA Shldr Simpliciti Nucleus Hd Saravanan Tornier - [id number] Implanted:Qt y: 1 on 02/19/2022 by Sam Massey MD at [facility] Implant Right: Shoulder TORNIER CAPSHLDRHDGLENTO R N / / Insurance [facility] [employer] BLUE [employer] PPO Advance Directives * CPR (Attempt to Resuscitate) (Latest Code Status on File) Date Activated Date Inactivated Comments 02/19/2022 6:32 PM 02/20/2022 2:33 PM Question Answer Comments Code Status (Patient has no pulse and is not breathing): CPR (Attempt to Resuscitate) Medical Interventions (Patie nt has pulse or is breathing): Full Level Of Support Discussed With: Patient Care Teams Knockdown Worker Relationship Specialty Start Date End Date Pasquale Girard MD [address] [place] [address] [place] [address] PCP - General Family Medicine 01/14/22
--- OUTSIDE RECORDS SUMMARY | 2025-08-18 10:57 | XMS_ITS | Encounter Summary ---
Author Organization Healthcare Address [address] [place] [address] Care Team Providers Care Manager Play Name Role Phone Pasquale Girard MD Primary Care Provider [phone] Encounter Details Date Type Department Care Team (Latest Contact Info) Description 07/22/2024 Community [facility] [address] [place] [address] Wilner Ortiz, DO [address] [place] [id number] Osteoarthritis of left knee, unspecified osteoarthritis type [...] Primary documented in this encounter Care Teams Manager Play Relationship Specialty Start Date End Date Pasquale Girard MD [address] [place] [address] PCP - General 03/15/21 documented as of this encounter
--- OUTSIDE RECORDS SUMMARY | 2025-08-18 10:57 | XMS_ITS | Data Portability ---
Author Organization [place] Address [address] [place] [address] Care Team Providers Care Warehouse Sorter Name Role Phone [facility] Primary [...] bloating. 4) Thrombocytopenia: Profound. He sees a upholsterer limousine and hearse in [place]. Previously improved on steroids. This improved with steroids previously, worsenend when they were stopped. 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 Following with hematology. 6) GERD: Change Nexium to Pantoprazole. [email or web address] Not available 07/23/2023 18:04:22 08/11/2024 08/11/2024 64-year-old [...] HCC. Pt reports recent US abd at [facility]. WIll obtain. Not available 08/11/2024 12:23:52 10/13/2024 [...] HCC. Pt reports recent US abd at [facility]. WIll obtain. Not available 10/13/2024 10:41:40 02/09/2025 [...] - Labs ordered through with the patient's upholsterer limousine and hearse, Dr. Bermudez. 3) Constipation: Miralax as needed. [...] for HCC. Patient to perform ultrasound at [facility]. Order given to patient today. Not available [...] for HCC. Patient to perform ultrasound at [facility]. Awaiting results of US. Not available 06/15/2025 15:45:46 Plan of Treatment Reminders Order Date Submit Date Provider Last Modified By Organization Details Last Modified Time Details Appointments Establish ed Visit 15 min 2025 09:00A M Saeid Gilman MD Not available Not available Not available Lab CMP, serum or plasma 2024 025 [facility], [address], [address], [place], [address], 02/14/2025 10:44:25 CBC w/ auto diff 2024 025 [place] [facility], [address], [address], [place], [address], 02/14/2025 10:44:26 afp (alpha-fe toprotein ) tumor marker, serum or plasma 2024 025 [facility], [address], [address], [place], [address], 02/15/2025 14:25:49 PT/PTT, plasma 2024 025 [facility], [address], [address], [place], [address], 02/14/2025 11:28:54 CMP, serum or plasma 2023 [facility], [address], [address], [place], [address], 08/12/2024 10:04:33 afp (alpha-fe toprotein ) tumor marker, serum or plasma 2023 024 [email or web address] 4 [facility], [address], [address], [place], [address], 08/18/2024 09:03:53 PT/INR 2023 024 [email or web address] 4 [facility], [address], [address], [place], [address], 08/18/2024 09:03:53 CBC w/ auto diff 2023 024 [place] [facility], [address], [address], [place], [address], 08/12/2024 09:09:00 hepatitis A virus Ab, qualitati ve, immunoass ay, serum 2023 024 [place] [facility], [address], [address], [place], [address], 08/14/2024 19:21:40 hepatitis B surface Ab, qualitati ve, serum 2023 024 [place] [facility], [address], [address], [place], [address], 08/13/2024 12:51:57 Referral None recorded. Procedures None recorded. Surgeries None recorded. Imaging US, liver 2024 [facility] ([facility] [address], [place], [address], 02/22/2025 11:08:42 Medication Orders Xifaxan 550 mg tablet 2023 [id number], [address] [place], [address], 02/09/2025 09:26:24 Dexilant 60 mg capsule, delayed release 2023 024 [id number], [address] [place], [address], 08/11/2024 11:25:44 simethico ne 125 mg capsule 2022 [address] [facility] [id number], [address] [place], [place], [id number], 02/09/2025 09:26:02 pantopraz ole 40 mg tablet,de layed release 2022 023 [facility] [address] [id number], [address], [id number], 02/09/2025 09:22:38 Patient TargetsNo targets recorded. Patient InstructionsNo instructions recorded. Reason for Referral None Reported. Results Created Date Observation Date Name Description Value Unit Range Abnormal Flag Note LastModifiedBy Organization Detail LastModifiedTime 07/15/20 24 07/15/2024 BHAVANI PREP TISSU E bhavani prep tissue NEGATI VE negati ve Not Available [facility] ([facility]) [address] , [place], [address], 07/15/2024 17:33:57 07/14/20 25 07/19/2025 PATHO LOGY SPECI MEN pathology specimen SEE REPORT Not Available [facility] ([facility]) [address] , [place], [address], 07/19/2025 12:23:35 07/07/20 23 07/07/2023 US, liver No observ ation record ed. [facility] [address], [place], [address], 08/28/2023 14:46:27 02/23/20 25 02/21/2025 US, liver No observ ation record ed. [facility] [address], [place], [address], 02/28/2025 11:44:25 Result Notes None recorded. Problems Name Problem SNOMED Code Status Onset Date Resolution Date Notes Provider Name and Address Organization Details Recorded Time Cirrhosis of liver Active 2022 Pablito Mccarthy PA-C [address], [place], [address] , [place] [facility] [place] 09:35:44 Constipation 05420400 Active 2022 Pablito Mccarthy PA-C [address], [place], [address] , [place] [facility] [place] 3 10:54:34 Thrombocytope cris disorder 992403546 Active 2022 Pablito Mccarthy PA-C [address], [place], [address] , [place] [facility] [place] 3 10:54:44 Superior mesenteric vein thrombosis 060754327 Active 2022 Pablito Mccarthy PA-C [address], [place], [address] , [place] [facility] [place] 3 10:55:43 Gastroesophag eal reflux disease without esophagitis 803665162 Active 2022 Pablito Mccarthy PA-C [address], [place], [address] , [place] [facility] [place] 3 09:35:58 Abdominal bloating 886983381 Active 2022 Pablito Mccarthy PA-C [address], [place], [address] , [place] [facility] [place] 3 09:36:01 Problem Notes None recorded. Procedures Surgical History Date Name Laterality Status Provider Name and Address Organization Details Recorded Time total knee replacement completed Kraig HEART DELVIS [facility] & [place] 02/09/2025 09:27:31 total shoulder replacement completed Kraig HEART DELVIS [facility] & [place] 02/09/2025 09:27:47 operation on stomach completed Kraig HEART DELVIS [facility] 02/09/2025 09:27:59 Imaging Results None recorded. Procedure [...] Updated DateTime 02/09/2025 187.96 cm 28.8 kg/m2 254650.4 9 g 73 /min 133/73 mm[Hg] Kraig Medeiros [place] [facility] [facility] [place] 5 09:28:08 Date Recorded Body height Body mass index (BMI) Body weight Oxygen saturation Oxygen saturation in Arterial blood by Pulse oximetry Heart rate Systolic And Diastolic Provider Name and Address Organization Details Last Updated DateTime 5 187.96 cm 30 kg/m2 625038. 61 g 99 % 99 % 72 /min 123/72 mm[Hg] Jane [facility] & [place] 5 11:16:17 Date Recorded Body weight Body mass index (BMI) Body height Heart rate Body temperature Oxygen saturation Oxygen saturation in Arterial blood by Pulse oximetry Heart rate Systolic And Diastolic Provider Name and Address Organization Details Last Updated DateTime 4 632395. 2 g 29.7 kg/m2 187.96 cm 109 /min 98.1 [degF] 95 % 95 % 100 /min 164/76 mm[Hg] Precious Faye [facility] & [place] 4 10:29:44 Date Recorded Body height Body mass index (BMI) Body weight Body temperature Heart rate Systolic And Diastolic Provider Name and Address Organization Details Last Updated DateTime 4 187.96 cm 29.7 kg/m2 682823. 56 g 97.3 [degF] 75 /min 146/75 mm[Hg] Lisha Shell [facility] & [place] 4 09:10:59 Social History Question Answer Notes LastModified by [facility] Details LastModified Time Tobacco Smoking Status Never Smoker Precious Faye [facility], [facility] & [place] 06/25/2023 09:09:55 What Is Your Level Of Caffeine Consumption? Occasional [email or web address] Information not available 06/25/2023 Sex: Unknown Functional Status Question Answer Note LastModified by [facility] Details LastModified Time Do you use any illicit or recreational drugs? No Information not available 06/25/2023 Do you or have you ever used any other forms of tobacco or nicotine? No [email or web address] Information not available 06/25/2023 What is your level of alcohol consumption? None Information not available 06/25/2023 Mental Status None [...] virus, quadrivalent, PF 7 completed Not Available [facility] 06/15/2025 11:09:41 Hep A, adult 8 completed Not Available [facility] 06/15/2025 11:09:41 Influenza, MDCK, quadrivalent, PF 0 completed Not Available [facility] 06/15/2025 11:09:41 COVID-19, mRNA, LNP-S, PF, 100 mcg/0.5mL dose or 50 mcg/0.25mL dose 1 completed Not Available [facility] 06/15/2025 11:09:41 COVID-19, mRNA, LNP-S, PF, 100 mcg/0.5mL dose or 50 mcg/0.25mL dose 1 completed Not Available [facility] 06/15/2025 11:09:41 Influenza, split virus, trivalent, preservative 1 completed Not Available [facility] 06/15/2025 11:09:41 Influenza, MDCK, quadrivalent, PF 2 completed Not Available [facility] 06/15/2025 11:09:41 Influenza, split virus, quadrivalent, PF 3 completed Not Available [facility] 06/15/2025 11:09:41 Past Encounters Encounter ID Performer Location Encounter Start Date Encounter Closed Date Diagnosis/Indication Diagnosis SNOMED-CT Code Diagnosis ICD10 Code Diagnosis IMO Codes Diagnosis Note [id number] Saeid Gilman MD [facility] [address] [address] 06/01/2023 08:33:54 06/01/2023 13:05:24 [id number] Pablito Mccarthy PA-C [facility] [address] [address] 06/25/2023 08:46:19 06/25/2023 09:47:01 Cirrhosis of liver 97625124 K74.60 Constipation 64233168 K5 9.00 Thrombocyt openic disorder 026389029 D69.6 Superior m esenteric vein thrombosis 872881838 K55.059 History of gastrointestinal bleed 419357081 Z87.19 [id number] Pablito Mccarthy PA-C [facility] [place] [address] 2 07/23/2023 09:01:42 07/23/2023 10:12:53 Cirrhosis of liver 12348182 K74.60 Constipation 52465606 K5 9.00 Thrombocyt openic disorder 038816481 D69.6 Superior m esenteric vein thrombosis 173545112 K55.059 History of gastrointestinal bleed 101833406 Z87.19 Gastroesop hageal reflux disease without esophagitis 890583494 K21.9 Abdominal bloating 36391 9008 R14.0 [id number] Saeid Gilman MD [facility] [place] 4494424[address] 2 08/11/2024 10:19:21 08/11/2024 11:42:38 Cirrhosis of liver 33054298 K74.60 Constipation 83119013 K5 9.00 Thrombocyt openic disorder 653522990 D69.6 Superior m esenteric vein thrombosis 471967976 K55.059 History of gastrointestinal bleed 683918862 Z87.19 Gastroesop hageal reflux disease without esophagitis 552166551 K21.9 Abdominal bloating 83650 9008 R14.0 Hepatic encephalopathy 09869648 K76.82 Ascites 692335350 R18.8 [id number] Saeid Gilman MD [facility] [address] [address] 10/13/2024 08:57:09 10/13/2024 09:43:50 Cirrhosis of liver 91265012 K74.60 Constipation 17813088 K5 9.00 Thrombocyt openic disorder 451898607 D69.6 Superior m esenteric vein thrombosis 637909025 K55.059 History of gastrointestinal bleed 928594709 Z87.19 Gastroesop hageal reflux disease without esophagitis 852071123 K21.9 Abdominal bloating 99518 9008 R14.0 Hepatic encephalopathy 35609813 K76.82 Ascites 002155872 R18.8 [id number] Saeid Gilman MD [facility] [address] [address] 02/09/2025 09:08:06 02/09/2025 09:52:00 Cirrhosis of liver 75667088 K74.60 Constipation 55742210 K5 9.00 Thrombocyt openic disorder 430289170 D69.6 Superior m esenteric vein thrombosis 030624397 K55.059 History of gastrointestinal bleed 797220108 Z87.19 Gastroesop hageal reflux disease without esophagitis 419187534 K21.9 Abdominal bloating 66585 9008 R14.0 Hepatic encephalopathy 91179079 K76.82 Ascites 617046689 R18.8 Alcoholic cirrhosis 4200 99507 K70.31 [id number] Saeid Gilman MD [facility] [address] [address] 06/15/2025 11:07:24 06/15/2025 12:25:39 Cirrhosis of liver 47792165 K74.60 Constipation 23100498 K5 9.00 Thrombocyt openic disorder 954284801 D69.6 Superior m esenteric vein thrombosis 732629010 K55.059 History of gastrointestinal bleed 205119460 Z87.19 Gastroesop hageal reflux disease without esophagitis 129471755 K21.9 Abdominal bloating 14877 9008 R14.0 Hepatic encephalopathy 97602885 K76.82 Ascites 958781065 R18.8 Alcoholic cirrhosis 4200 40902 K70.31 [id number] Health Concerns Section Related Observation LastModified by Organization Detai ls LastModified Time None Recorded Concern Status LastModified by Organization Details LastModified Time None Recorded Advance Directives Directive None Recorded Payers Insurance Date Sequence Insurance Name Policy Number Policy Hidalgo Covered Member ID Hidalgo Member ID Guarantor Name 10/13/2024 2 [facility] [employer] [facility]S - [place] [place] ([place]) Halie Banda [id number] Solo Ambrose 08/12/2024 1 [place] Banda [id number] Solo Ambrose 07/11/2025 1 [place] Solo Ambrose [id number] Solo Ambrose 07/18/2025 2 [place] [id number] Solo Ambrose [id number] Solo Ambrose Notes Date Note Type [...] as 16. He was seeing hematology in [place] and was placed on steroids which [...] further disposition of care. Pablito Mccarthy PA-C [address], [place], [address], [place] 07/23/2023 18:04:40 08/11/2024 text/html PREVIOUS (06/25/23): Mr. [...] as 16. He was seeing hematology in [place] and was placed on steroids which [...] Sleep cycle is altered. Saeid Gilman MD [address], [place], [address], [place] [facility] 08/11/2024 12:24:41 10/13/2024 text/html PREVIOUS (06/25/23): Mr. [...] as 16. He was seeing hematology in [place] and was placed on steroids which [...] He otherwise feels well. Saeid Gilman MD [address] [facility], [place], [address], [facility] & [place] 10/13/2024 10:41:59 02/09/2025 text/html PREVIOUS (06/25/23): Mr. [...] as 16. He was seeing hematology in [place] and was placed on steroids which [...] increase in abdominal girth. Saeid Gilman MD [address] [facility], [place], [address], [place] 02/09/2025 10:06:18 06/15/2025 text/html PREVIOUS (06/25/23): Mr. [...] as 16. He was seeing hematology in [place] and was placed on steroids which [...] abdominal or LE swelling. Saeid Gilman MD [address], [place], [address], [facility] - [place] 06/15/2025 15:46:39
--- NOTE | 2025-08-18 10:58 | PC.NURSE ---
1058-collected labs via venipuncture stick in right ac with butterfly needle; pt to d/c home
[2025-08-18 11:11] LABS: Hematocrit 42.7 % (42.0-52.0); Hemoglobin 15.1 g/dL (14.1-18.0); Immature Granulocytes % 0.2 %; Mean Corpuscular HGB Conc 35.4 g/dL (31.8-35.4); Mean Corpuscular Hemoglobin 33.0 pg (27.0-31.2); Mean Corpuscular Volume 93.4 fl (80-94); Nucleated Red Blood Cells % 0 %; Platelet Count 83 K/mm3 (142-424); Red Blood Count 4.57 M/mm3 (4.60-6.20); Red Cell Distribution Width-SD 45.3 fL; White Blood Count 6.1 K/mm3 (4.8-10.8)
== END 2025-08-18 23:59 | disposition home or self-care (01) ==
PROVIDERS: PCP Family Medicine; Visit Provider Internal Medicine Medical Oncology
DX: D69.6 Thrombocytopenia, unspecified (principal)
CPT/HCPCS: 36415; 85025

== ENCOUNTER 2025-09-06 08:44 | Outpatient (CLI) | payer MEDICARE, BC, SELFPAY ==
--- OUTSIDE RECORDS SUMMARY | 2024-06-15 04:15 | XMS_ITS ---
[facility] [address] [facility] [address] [place] [id number] Care Team Providers Care Linoleum Layer Apprentice Name Role Phone Pasquale Girard Primary Care Provider Allergies No Known Allergies Results Component Value Reference Range Notes FOBT - Inhouse Reviewed date:06/22/2024 11:54:00 AM Interpretation: Performing Lab: Notes/Report: REASON FOR VISIT Repeat Labs and Possible Hernia, F/u on CT Abdomen and Pelvis results Medications Medication SIG (Take, Route, Frequency, Duration) Notes Start Date End Date Status Bumetanide 2 MG 1 tablet Orally Once a day 05/03/2024 Active Gabapentin 300 MG 1 capsule Orally At Bed Time; Duration: 30 day(s) 05/03/2024 Active Plavix 75 MG 1 tablet Orally Once a day; Duration: 30 day(s) Not-Taking Santyl 250 UNIT/GM 1 application Externally Once a day 05/04/2024 Active Spironolactone 50 MG 1 tablet Orally Two times a day; Duration: 30 days Active Bisoprolol Fumarate 10 MG 1 tablet Orall y Once a day; Duration: 30 day(s) Active Xarelto 20 MG 1 tablet with food Orally Once a day; Duration: 30 day(s) Not-Taking NexIUM 24HR 20 MG 2 capsule Orally Onc e a day Active Xarelto 15 MG 1 tablet with food Orally Once a day; Duration: 30 day(s) Active Atorvastatin Calcium 40 MG 1 tablet Oral ly Once a day; Duration: 30 day(s) Active Vital Signs Weight 241.8 lbs 06/15/2024 Blood pressure systolic 110 mm Hg 06/15/20 24 Blood pressure diastolic 62 mm Hg 024 Heart Rate 96 /min 06/15/2024 Height 74 in 06/15/2024 BMI 31.04 kg/m2 06/15/2024 Encounters Encounter Location Date Provider Diagnosis [facility] [address] [place] [id number] 06/15/2024 Pasquale Girard Anemia, unspecified type D64.9 and Heartburn R12 Assessments Encounter Date Diagnosis (ICD Code) Assessment Notes Treatment Notes Treatment Clinical Notes Section Notes 06/15/2024 Anemia, unspecified type (ICD-10 - D64.9) 06/15/2024 Heartburn (ICD-10 - R12) Plan Of Treatment Medication Medication Name Sig Start Date Stop Date Notes NexIUM 24HR 20 MG 2 capsule Orally Once a day Next Appt Details Follow Up: via phone to repo rt test results, Reason: Progress Notes * Solo AMBROSEDOB:[birth year] (65 yo M)Acc No.[id number]:06/15/2024 Progress Notes Patient: Solo HERNANDEZ Provider: Sofia Girard M.D. :1960 A ge:64 Y S ex:Male Date:06/15/2024 Address:[address] [place] [address] , [place] , [id number] Subjective: * Chief Complaints: * 1 . Repeat Labs and Possible Hernia. 2. F/u on CT Abdomen and Pelvis results. * HPI: H PI: 64 year old male presents with c/o Here for follow up on: r ecent labs and CT scan, see pt docs. * ROS: D ERMATOLOGY: no R libby. n o H parviz. G ASTROENTEROLOGY: no N ausea. n o V omiting. U ROLOGY: no D ifficulty urinating. n o B lood in urine. * Medical History: C oronary Artery Disease, LT Heart Cath, [facility] 06/2019, Hypertension, A Fib, Hyperlipidemia, Gout, ETOH abuse, Abnormal LFT's, Bilateral Inguinal Hernia, Diastolic Dysfunction, Echo, 09/2019, Osteoarthritis, anemia/GI bleed April 2023, Thrombocytopenia, s/p Heme/Onc evaluation at [facility], cirrhosis, s/p GI evaluation with Dr. Gilman, DVT, Right leg, 2023, Immune Thrombocytopenia Purpura. * Surgical History: L T Shoulder Replacement 2005, Bilateral inguinal hernia repair 04/18/2013, Percutaneous Coronary Intervention, 3 Stents Placed 06/2019, Rotator Cuff Tear Repair 02/18/2022, umbilical hernia repair - At 08/2023. * Hospitalization/Major Diagno stic Procedure: D enies Past Hospitalization. * Family History: F ather: , cancer. M other: , heart problems and diabetes,HBP. S iblings: brother of heart trouble,HBP,diabetes. 2 brother(s) . 1 daughter(s) - healthy. . * Social History: C URRENT TOBACCO USE S moking Status: Patient does NOT smoke. C affeine: yes, frequency:tea occasionally. Marital Status: Single. Past smoking status: no. Recreational drug use: no. Alcohol: Yes, Type: beer, Frequency:4-6 beers 4-5 times per week ,Years: 34 , Determination:. Sexually active: yes. * Medications: T aking NexIUM 24HR 20 MG Capsule Delayed Release 1 capsule Orally Once a day , Taking Xarelto 15 MG Tablet 1 tablet with food Orally Once a day , Taking Atorvastatin Calcium 40 MG Tablet 1 tablet Orally Once a day , Taking Bisoprolol Fumarate 10 MG Tablet 1 tablet Orally Once a day , Taking Gabapentin 300 MG Capsule 1 capsule Orally At Bed Time , Taking Bumetanide 2 MG Tablet 1 tablet Orally Once a day , Taking Santyl 250 UNIT/GM Ointment 1 application Externally Once a day , Taking Spironolactone 50 MG Tablet 1 tablet Orally Two times a day , Not-Taking Plavix 75 MG Tablet 1 tablet Orally Once a day , Not-Taking Xarelto 20 MG Tablet 1 tablet with food Orally Once a day , Medication List reviewed and reconciled with the patient * Allergies: N .K.D.A. Objective: * Vitals: W t:241.8, Temp:98.0, BP:110/62, HR:96, Nurse:emmanuel, Ht: 74, BMI:31.04. * Examination: G eneral Examination: General Appearance: N AD. L abs and CT scan results reviewed with patient today in office. Assessment: * Assessment: 1. A nemia, unspecified type - D64.9 (Primary) 2 . H eartburn - R12 ? Plan: * Treatment: 2.?Heartburn? Increase NexIUM 24HR Capsule Delayed Release, 20 MG, 2 capsule, Orally, Once a day.?? * Procedure Codes: G 2211 Complex e/m visit add on, G0328 Fecal blood scrn immunoassay, Modifiers: QW , 41663 ASSAY TEST FOR BLOOD, FECAL, Modifiers: QW * Follow Up: v ia phone to report test results * Images: Billing Information: * Visit Code: 52795 Office Visit, Est Pt., Level 3. * Procedure Codes: G2211 Complex e/m visit add on. G0328 Fecal blood scrn immunoassay. Modifiers: QW 23620 ASSAY TEST FOR BLOOD, FECAL. Modifiers: QW * Electronic signature of Abbey Girard MD on 09/06/2025 at 08:49 AM EST Sign off status: Pending * Provider: Sofia Girard M.D. Date: 0 06/15/2024 Generated for Azeb gill/Hudson/eTransmitting on: 11/06/2024 08:49 AM EST History and Physical Notes * HPI (History of Present Illness) Category Sub-Category Detail Notes Category Not es HPI Here for follow up on: recent labs and CT scan, see pt docs Examination Category Sub-Category Detail Notes Category Not es General Examination General Appearance: NAD L abs and CT scan results reviewed with patient today in office
--- OUTSIDE RECORDS SUMMARY | 2024-06-20 03:45 | XMS_ITS ---
Author Organization [facility] Address [address] [facility] 36 [facility] [address] [place] [id number] Care Team Providers Care Contract Implementation Analyst Name Role Phone Pasquale Girard Primary Care Provider Results Component Value Reference Range Notes Hemoccult- IFOBT (in house) Reviewed date:06/20/2024 10:12:57 AM Interpretation:Positive Performing Lab: Notes/Report: Positive results positive REASON FOR VISIT stool sample Encounters Encounter Location Date Provider Diagnosis [facility] [address] [facility] [address] [place] [phone] 06/20/2024 Pasquale Girard Plan Of Treatment No Information Progress Notes * Solo AMBROSEDOB:[birth year] (65 yo M)Acc No.[id number]:06/20/2024 Patient: Solo HERNANDEZ Provider: Sofia Girard M.D. :1960 A ge:64 Y S ex:Male Date:06/20/2024 Address:[address] , [facility] Subjective: * Chief Complaints: * 1 . Stool sample. * Medical History: Objective: * Vitals: Assessment: Plan: * Treatment: Value Reference Range r esults positive * Labs: * L ab: Hemoccult- IFOBT (in house) (Collection Date & Time - 06/20/2024) P ositive Value Reference Range r esults positive * Amber Rodriguez 06/20/2024 9:00 :39 AM >Dione Bejarano 06/20/2024 10:12:56 AM > See phone encounter * Procedure Codes: 8 2274 ASSAY TEST FOR BLOOD, FECAL, Modifiers: QW * Images: Billing Information: * Visit Code: * Procedure Codes: 27615 ASSAY TEST FOR BLOOD, FECAL. Modifiers: QW * Electronic signature of Abbey Girard MD on 09/06/2025 at 08:49 AM EST Sign off status: Pending * Provider: Sofia Girard M.D. Date: 0 06/20/2024 Generated for Azeb gill/Hudson/Corrie on: 1 11/06/2024 08:49 AM EST
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
--- OUTSIDE RECORDS SUMMARY | 2024-09-27 05:45 | XMS_ITS ---
Author Organization [facility] Address [address] [facility] [address] [place] [phone] Care Team Providers Care Engineer Name Role Phone Pasquale Girard Primary Care Provider PereraDaljit worthingtonine Unavailable [phone] Allergies No Known Allergies Results Component Value Reference Range Notes P-Culture, Wound Aerobic w/G jojo Stain Reviewed date:10/01/2024 12:10:32 PM Interpretation: Performing Lab: Notes/Report: Test performed by [facility] [address] , [address], [place] [address] Jong Schneider MD, Tube Cutter Operator CLIA: [id number] Specimen Source Leg - Lower Right Leg Gram Stain See Below Moderate Polymorphonuclear leukocytes Moderate Gram Negative Rods Culture, Wound Aerobic w/Gram Stain See Below Preliminary Report : Pending, marlin Klebsiella variicola Moderate Growth Klebsiella variicola Sensitivity Panel See Below Organism K.variicola Antibiotic INTERP Amikacin S Ampicillin R Aztreonam S Cefepime S Cefoxitin S Ceftazidime S Ceftriaxone S Cefuroxime S Ciprofloxacin S Ertapenem S Gentamicin S Imipenem S Levofloxacin S Meropenem S Piperacillin/Tazo S Tetracycline S Tobramycin S Trimeth/Sulfa S S=SUSCEPTIBLE I=INTERMEDIATE R=RESISTANT REASON FOR VISIT leg wound possible infection Medications Medication SIG (Take, Route, Frequency, Duration) Notes Start Date End Date Status Bisoprolol Fumarate 10 MG 1 tablet Orall y Once a day; Duration: 30 day(s) Active Santyl 250 UNIT/GM 1 application Senior Director ally Once a day 05/04/2024 Active Spironolactone 50 MG 1 tablet Orally Two times a day; Duration: 30 days Active NexIUM 24HR 20 MG 2 capsule Orally Onc e a day Active Xarelto 15 MG 1 tablet with food O rally Once a day; Duration: 30 day(s) Active Atorvastatin Calcium 40 MG 1 tablet Oral ly Once a day; Duration: 30 day(s) Active Clindamycin HCl 300 MG 1 capsule Orally every 8 hrs; Duration: 10 day(s) 09/27/2024 Active Mupirocin 2 % 1 application Senior Director ally qd; Duration: 30 days 09/27/2024 Active Vital Signs Weight 224.7 lbs 09/27/2024 Blood pressure systolic 130 mm Hg 09/27/20 24 Blood pressure diastolic 74 mm Hg 024 Heart Rate 87 /min 09/27/2024 Height 74 in 09/27/2024 BMI 28.85 kg/m2 09/27/2024 Encounters Encounter Location Date Provider Diagnosis [facility] [address] [facility] [address] [place] [id number] 09/27/2024 Lana Perera Cellulitis of right leg L03.115 and Wound of right lower extremity, subsequent encounter S81.801D Assessments Encounter Date Diagnosis (ICD Code) Assessment Notes Treatment Notes Treatment Clinical Notes Section Notes 09/27/2024 Cellulitis of right leg (ICD-10 - L03.115) elevate the leg as much as possible 09/27/2024 Wound of right lower extremity, subsequent encounter (ICD-10 - S81.801D) keep wound dry with showering; apply mupirocin around edges of the wound ; keep covered Plan Of Treatment Medication Medication Name Sig Start Date Stop Date Notes Clindamycin HCl 300 MG 1 capsule Orally every 8 hrs; Duration: 10 day(s) 09/27/2024 Mupirocin 2 % 1 application Senior Director ally qd; Duration: 30 days 09/27/2024 Treatment Notes Assessment Notes Cellulitis of right leg elevate the leg as much as possible Wound of right lower extremi ty, subsequent encounter keep wound dry with showering; apply mupirocin around edges of the wound ; keep covered Next Appt Details Follow Up: 1 Week, Reason: Progress Notes * Solo AMBROSEDOB:[birth year] (65 yo M)Acc No.[id number]:09/27/2024 Progress Notes Patient: Solo HERNANDEZ Provider: CHARLES Villegas :1960 A ge:64 Y S ex:Male Date:09/27/2024 Address:[address] [place] [address] , [facility] y , [id number] Pcp:Pasquale Girard Subjective: * Chief Complaints: * 1 . Leg wound possible infection. * HPI: D ermatology: 64 year old male presents with c/o ulcer. c/o redness.? c/o Wound P t complains of lower rt leg wound. Pt had been going to [facility] wound clinic but stopped because wound was healing. Pt states that a couple days ago wound started to burn again. Pt thinks it may be infected and would like to have wound cultured. Large red area around and warm to the touch. has had wound for 9 months; whittaker and has turned red; stopped going to the wound care 2 weeks; has been cleaning qd with change for dressing; some drainage x 2 days; no fever; has been cleaning with wound water. * ROS: D ERMATOLOGY: no R libby. n o H parviz. G ASTROENTEROLOGY: no N ausea. n o V omiting. U ROLOGY: no D ifficulty urinating. n o B lood in urine. * Medical History: C oronary Artery Disease, LT Heart Cath, [facility] 06/2019, Hypertension, A Fib, Hyperlipidemia, Gout, ETOH abuse, Abnormal LFT's, Bilateral Inguinal Hernia, Diastolic Dysfunction, Echo, 09/2019, Osteoarthritis, anemia/GI bleed April 2023, Thrombocytopenia, s/p Heme/Onc evaluation at [facility], cirrhosis, s/p GI evaluation with Dr. [...] capsule Orally Once a day , Discontinued Cefuroxime Axetil 500 MG Tablet 1 tablet Orally every 12 hrs , Medication List reviewed and reconciled with the patient * Allergies: N .K.D.A. Objective: * Vitals: W t:224.7, Temp:97.9, BP:130/74, HR:87, Nurse:emmanuel, Ht: 74, BMI:28.85. * Examination: G eneral Examination: General Appearance: NAD, alert, pleasant; appears well hydrated. H eart: RRR. L ungs: CTAB A&P. D ermatology: Extremities: right outer lower leg with irregular open wound; moist; surrounding erythema and edema from ankle to mid lower leg;non tender. p revious wound culture 09/11/2024 + for klebsiella pneumoniae; was on Ceftin x 10 days. Assessment: * Assessment: 1. C ellulitis of right leg - L03.115 (Primary) 2 . W ound of right lower extremity, subsequent encounter - S81.801D Plan: * Treatment: 2. W ound of right lower extremity, subsequent encounter Start Clindamycin HCl Capsule, 300 MG, 1 capsule, Orally, every 8 hrs, 10 day(s), 30 Capsule; S tart Mupirocin Ointment, 2 %, 1 application, Externally, qd, 30 days, 1, Refills 2. L AB: P-Culture, Wound Aerobic w/Gram Stain (Collection Date & Time - 09/27/2024 10:22 AM) Value Reference Range C ulture, Wound Aerobic w/Gram Stain See Below - * S pecimen Source Leg - Lower Right Leg - * G jojo Stain See Below - * S ensitivity Panel See Below - * K lebsiella variicola Moderate Growth Klebsiella variicola - * Lana Perera 10/01/2024 12:01:50 PM >Lana Perera 10/01/2024 12:10:23 PM > , See encounter note Notes: keep wound dry with showering; apply mupirocin around edges of the wound ; keep covered?? * Procedure Codes: G 2211 Complex e/m visit add on * Follow Up: 1 Week * Images: Billing Information: * Visit Code: 05005 Office Visit, Est Pt., Level 4. * Procedure Codes: G2211 Complex e/m visit add on. * Electronic signature of Viridiana Perera APRN on 09/06/2025 at 08:49 AM EST Sign off status: Pending * Provider: CHARLES Villegas Date: 11/27/2023 Generated for Azeb gill/Hudson/Alisitting on: 11/06/2024 08:49 AM EST History and Physical Notes * HPI (History of Present Illness) Category Sub-Category Detail Notes Category Not es Dermatology redness has had wound f or 9 months; whittaker and has turned red; stopped going to the wound care 2 weeks; has been cleaning qd with change for dressing; some drainage x 2 days; no fever; has been cleaning with wound water ulcer Wound Pt complains of lowe r rt leg wound. Pt had been going to [facility] wound clinic but stopped because wound was healing. Pt states that a couple days ago wound started to burn again. Pt thinks it may be infected and would like to have wound cultured. Large red area around and warm to the touch Examination Category Sub-Category Detail Notes Category Not es General Examination Heart: RRR Lungs: CTAB A&P General Appearance: NAD, alert, pleasant ; appears well hydrated Dermatology Extremities: right outer lowe r leg with irregular open wound; moist; surrounding erythema and edema from ankle to mid lower leg;non tender previous wound culture 09/11/2024 + for klebsiella pneumoniae; was on Ceftin x 10 days
--- OUTSIDE RECORDS SUMMARY | 2024-10-04 06:15 | XMS_ITS ---
Author Organization [facility] Address 1210 [facility] [address] [place] [id number] Care Team Providers Care Medical Massage Therapist Name Role Phone Pasquale Girard Primary Care Provider Lana Perera Unavailable [phone] Allergies No Known Allergies REASON FOR VISIT 1 week Medications Medication SIG (Take, Route, Frequency, Duration) Notes Start Date End Date Status Xarelto 15 MG 1 tablet with food O rally Once a day; Duration: 30 day(s) Active Silvadene 1 % 1 application Tool Room Gear Machine Operator ally Once a day; Duration: 30 days 10/04/2024 Active Spironolactone 50 MG 1 tablet Orally Two times a day; Duration: 30 days Active Bisoprolol Fumarate 10 MG 1 tablet Orall y Once a day; Duration: 30 day(s) Active Mupirocin 2 % 1 application Tool Room Gear Machine Operator ally qd; Duration: 30 days 09/27/2024 Active levoFLOXacin 500 MG 1 tablet Orally Once a day Active Vital Signs Weight 229.2 lbs 10/04/2024 Blood pressure systolic 130 mm Hg 10/04/20 24 Blood pressure diastolic 80 mm Hg 024 Heart Rate 62 /min 10/04/2024 Height 74 in 10/04/2024 BMI 29.42 kg/m2 10/04/2024 Encounters Encounter Location Date Provider Diagnosis [facility] [address] [place] [phone] 10/04/2024 Lana Perera Cellulitis of right leg L03.115 and Wound of right lower extremity, subsequent encounter S81.801D Assessments Encounter Date Diagnosis (ICD Code) Assessment Notes Treatment Notes Treatment Clinical Notes Section Notes 10/04/2024 Cellulitis of right leg (ICD-10 - L03.115) elevate the leg as much as possible 10/04/2024 Wound of right lower extremity, subsequent encounter (ICD-10 - S81.801D) keep wound dry with showering; apply mupirocin around edges of the wound ; keep covered Plan Of Treatment Medication Medication Name Sig Start Date Stop Date Notes Silvadene 1 % 1 application Tool Room Gear Machine Operator ally Once a day; Duration: 30 days 10/04/2024 levoFLOXacin 500 MG 1 tablet Orally Once a day 10/01/2024 Treatment Notes Assessment Notes Cellulitis of right leg elevate the leg as much as possible Wound of right lower extremi ty, subsequent encounter keep wound dry with showering; apply mupirocin around edges of the wound ; keep covered Next Appt Details Follow Up: 1 Week, Reason: Progress Notes * Solo AMBROSEDOB:[birth year] (65 yo M)Acc No.[id number]:10/04/2024 Progress Notes Patient: Solo HERNANDEZ Provider: CHARLES Villegas :1960 A ge:64 Y S ex:Male Date:10/04/2024 Address:[address] [place] [address] , [facility] , [id number] Pcp:Pasquale Girard Subjective: * Chief Complaints: * 1 . 1 week. * HPI: H PI: 64 year old male presents with c/o Patient is here today for?Pt is here today for a 1 week f/u on leg wound. Pt sts his leg is dong better and he still using the cream. Pt sts he has no other concerns or complaints at this time. ABX changed to Levaquin due to wound culture results. * ROS: D ERMATOLOGY: no R libby. n o H parviz. G ASTROENTEROLOGY: no N ausea. n o V omiting. U ROLOGY: no D ifficulty urinating. n o B lood in urine. * Medical History: C oronary Artery Disease, LT Heart Cath, [facility] 06/2019, Hypertension, A Fib, Hyperlipidemia, Gout, ETOH abuse, Abnormal LFT's, Bilateral Inguinal Hernia, Diastolic Dysfunction, Echo, 09/2019, Osteoarthritis, anemia/GI bleed April 2023, Thrombocytopenia, s/p Heme/Onc evaluation at [facility], cirrhosis, s/p GI evaluation with Dr. Gilman, DVT, Right leg, 2023, Immune Thrombocytopenia Purpura. * Surgical History: L T Shoulder Replacement 2005, Bilateral inguinal hernia repair 04/18/2013, Percutaneous Coronary Intervention, 3 Stents Placed 06/2019, Rotator Cuff Tear Repair 02/18/2022, umbilical hernia repair - At 08/2023. * Family History: F ather: , cancer. [...] food Orally Once a day , Taking Bisoprolol Fumarate 10 MG Tablet 1 tablet Orally Once a day , Taking Spironolactone 50 MG Tablet 1 tablet Orally Two times a day , Taking Mupirocin 2 % Ointment 1 application Externally qd , Taking levoFLOXacin 500 MG Tablet 1 tablet Orally Once a day , Medication List reviewed and reconciled with the patient * Allergies: N .K.D.A. Objective: * Vitals: W t:229.2, Temp:97.2, BP:130/80, HR:62, O2 Sat:100% on RA, Nurse:[facility], Ht: 74, BMI:29.42. * Examination: G eneral Examination: General Appearance: NAD, appears healthy, alert, pleasant. H eart: RRR. N eurologic Exam: alert and oriented. S kin: RLE wound with less erythema; wound with drainage. E xtremities: bilateral leg edema. ? Assessment: * Assessment: 1. C ellulitis of right leg - L03.115 (Primary) 2 . W ound of right lower extremity, subsequent encounter - S81.801D Plan: * Treatment: 2. W ound of right lower extremity, subsequent encounter Start Silvadene Cream, 1 %, 1 application, Externally, Once a day, 30 days, 1, Refills 1. ? Notes: keep wound dry with showering; apply mupirocin around edges of the wound ; keep covered * Procedure Codes: 9 4760 PULSE OX, G2211 Complex e/m visit add on * Follow Up: 1 Week * Images: Billing Information: * Visit Code: 17575 Office Visit, Est Pt., Level 3. * Procedure Codes: 88576 PULSE OX. G2211 Complex e/m visit add on. * Electronic signature of Viridiana Perera APRN on 09/06/2025 at 08:50 AM EST Sign off status: Pending * Provider: CHARLES Villegas Date: 12/05/2023 Generated for Azeb gill/Hudson/Corrie on: 11/06/2024 08:50 AM EST History and Physical Notes * HPI (History of Present Illness) Category Sub-Category Detail Notes Category Not es HPI Patient is here toda y for Pt is here today for a 1 week f/u on leg wound. Pt sts his leg is dong better and he still using the cream. Pt sts he has no other concerns or complaints at this time ABX changed to Levaquin due to wound culture results Examination Category Sub-Category Detail Notes Category Not es General Examination Heart: RRR Extremities: bilateral leg edema General Appearance: NAD, appears healthy , alert, pleasant Skin: RLE wound with less erythema; wound with drainage Neurologic Exam: alert and oriented
--- OUTSIDE RECORDS SUMMARY | 2024-11-17 05:00 | XMS_ITS ---
Author Organization Jannie Address 1210 [facility] [address] [place] [phone] Care Team Providers Care Small Business Consultant Name Role Phone Pasquale Girard Primary Care Provider [phone] Allergies No Known Allergies REASON FOR VISIT pre op physical Medications Medication SIG (Take, Route, Frequency, Duration) Notes Start Date End Date Status Bisoprolol Fumarate 10 MG 1 tablet Orall y Once a day; Duration: 30 day(s) Active Xarelto 15 MG 1 tablet with food O rally Once a day; Duration: 30 day(s) Active Vital Signs Weight 227.8 lbs 11/17/2024 Blood pressure systolic 118 mm Hg 11/17/19 25 Blood pressure diastolic 74 mm Hg 025 Heart Rate 54 /min 11/17/2024 Height 74 in 11/17/2024 BMI 29.24 kg/m2 11/17/2024 Encounters Encounter Location Date Provider Diagnosis [facility] 1210 [facility] [address] [place] [id number] 11/17/2024 Pasquale Girard Pre-op exam Z01.818 ; Arthritis of left knee M17.12 ; Anemia, unspecified type D64.9 ; Thyromegaly E01.0 ; Coronary artery disease involving [place] coronary artery of [place] heart without angina pectoris I25.10 ; Type 2 diabetes mellitus without complication, unspecified whether snf insulin use E11.9 ; Mixed hyperlipidemia E78.2 ; HTN (hypertension) I10 ; Gastroesophageal reflux disease, esophagitis presence not specified K21.9 ; Gout, unspecified M10.9 and Open wound of right lower extremity, subsequent encounter S81.801D Assessments Encounter Date Diagnosis (ICD Code) Assessment Notes Treatment Notes Treatment Clinical Notes Section Notes 11/17/2024 Pre-op exam (ICD-10 - Z01.818) PATIENT IS CLEARED FOR SURGERY, BUT HE IS AT LEAST AT MODERATE RISK FOR PERIOPERATIVE AND POSTOPERATIVE COMPLICATIONS. 11/17/2024 Arthritis of left knee (ICD-10 - M17.12) 11/17/2024 Anemia, unspecified type (ICD-10 - D64.9) 11/17/2024 Thyromegaly (ICD-10 - E01.0) 11/17/2024 Coronary artery disease involving [place] coronary artery of [place] heart without angina pectoris (ICD-10 - I25.10) 11/17/2024 Type 2 diabetes mellitus without complication, unspecified whether snf insulin use (ICD-10 - E11.9) 11/17/2024 Mixed hyperlipidemia (ICD-10 - E78.2) 11/17/2024 HTN (hypertension) (ICD-10 - I10) 11/17/2024 Gastroesophageal reflux disease, esophagitis presence not specified (ICD-10 - K21.9) 11/17/2024 Gout, unspecified (ICD-10 - M10.9) 11/17/2024 Open wound of right lower extremity, subsequent encounter (ICD-10 - S81.801D) Plan Of Treatment Treatment Notes Assessment Notes Pre-op exam PATIENT IS CLEARED F OR SURGERY, BUT HE IS AT LEAST AT MODERATE RISK FOR PERIOPERATIVE AND POSTOPERATIVE COMPLICATIONS. Next Appt Details Follow Up: as scheduled,and prn, Reason: Progress Notes * Solo AMBROSEDOB:[birth year] (65 yo M)Acc No.[id number]:11/17/2024 Physical Patient: Solo HERNANDEZ Provider: Sofia Girard M.D. :1960 A ge:64 Y S ex:Male Date:11/17/2024 Address:[address] [place] [address] , [facility] y , [id number] Subjective: * Chief Complaints: * 1 . Pre op physical. * HPI: A dult Pre-Op physical: 64 year old male presents with c/o Procedure: L t TKA. c/o Date of Procedure: N ot scheduled. c/o Name of Surgeon: [facility], Dr. Herrera. * ROS: D ERMATOLOGY: no R libby. n o H parviz. G ASTROENTEROLOGY: no N ausea. n o V omiting. U ROLOGY: no D ifficulty urinating. n o B lood in urine. * Medical History: C oronary Artery Disease, LT Heart Cath, [facility] 06/2019, Hypertension, A Fib, Hyperlipidemia, Gout, ETOH abuse, Abnormal LFT's, Bilateral Inguinal Hernia, Diastolic Dysfunction, Echo, 09/2019, Osteoarthritis, anemia/GI bleed April 2023, Thrombocytopenia, s/p Heme/Onc evaluation at [facility], cirrhosis, s/p GI evaluation with Dr. [...] tablet Orally Once a day , Discontinued Spironolactone 50 MG Tablet 1 tablet Orally Two times a day , Discontinued Mupirocin 2 % Ointment 1 application Externally qd , Discontinued Silvadene 1 % Cream 1 application Externally Once a day , Discontinued levoFLOXacin 500 MG Tablet 1 tablet Orally Once a day , Medication List reviewed and reconciled with the patient * Allergies: N .K.D.A. Objective: * Vitals: W t:227.8, Temp:97.6, BP:118/74, HR:54, Nurse:kk, Ht: 74, BMI:29.24. * Examination: G eneral Examination: General Appearance: N AD. H EENT: u nremarkable.?Oral cavity: n o lesions, mucosa moist and WNL, no erythema. N tony: s upple, no lymphadenopathy. H eart: R SR. L ungs: c lear to auscultation. A bdomen: obese, bowel sounds present, soft and nontender. N eurologic Exam: I ntact, gait normal. S kin: d ressing in place over right lower leg/hahn wound. P eripheral pulses: n ormal (2+) bilaterally. E xtremities: n o leg edema. Assessment: * Assessment: 1. P re-op exam - Z01.818 (Primary) 2 . A rthritis of left knee - M17.12? 3. A nemia, unspecified type - D64.9 4 . T hyromegaly - E01.0? 5. C oronary artery disease involving [place] coronary artery of [place] heart without angina pectoris - I25.10 6 . T ype 2 diabetes mellitus without complication, unspecified whether snf insulin use - E11.9 7 . M ixed hyperlipidemia - E78.2 8 . H TN (hypertension) - I10 9 . G astroesophageal reflux disease, esophagitis presence not specified - K21.9 1 0. G out, unspecified - M10.9 1 1. O pen wound of right lower extremity, subsequent encounter - S81.801D Plan: * Treatment: * Procedure Codes: G 2211 Complex e/m visit add on * Follow Up: a s scheduled,and prn * Images: Billing Information: * Visit Code: 07288 Office Visit, Est Pt., Level 4. * Procedure Codes: G2211 Complex e/m visit add on. * Electronic signature of Abbey Girard MD on 09/06/2025 at 08:50 AM EST Sign off status: Pending * Provider: Sofia Girard M.D. Date: 0 11/17/2024 Generated for Printi ng/Jedg/eTransmitting on: 11/06/2024 08:50 AM EST History and Physical Notes * HPI (History of Present Illness) Category Sub-Category Detail Notes Category Not es Adult Pre-Op physical Procedure: Lt TKA Date of Procedure: Not scheduled Name of Surgeon: [facility], Dr. Herrera Examination Category Sub-Category Detail Notes Category Not es General Examination HEENT: unremarkable Heart: RSR Lungs: clear to auscultatio n Abdomen: obese, bowel sounds present, soft and nontender Extremities: no leg edema General Appearance: NAD Skin: dressing in place ov er right lower leg/hahn wound Neurologic Exam: Intact, gait normal Neck: supple, no lymphaden opathy Oral cavity: no lesions, mucosa m oist and WNL, no erythema Peripheral pulses: normal (2+) bilatera lly
--- OUTSIDE RECORDS SUMMARY | 2025-06-07 06:00 | XMS_ITS ---
[facility] Organization [facility] Address [address] [facility] [address] [place] [id number] Care Team Providers Care Utilities Ground Worker Name Role Phone Pasquale Girard Primary Care Provider [phone] Allergies No Known Allergies Results Component Value Reference Range Notes H-Lipid Panel Reviewed date:06/08/2025 09:51:05 AM Interpretation:dldl 63.91, hdl 97 Performing Lab: Notes/Report: TRIG 61 30-150 mg/dl CHOL 173 140-200 mg/dl DLDL 63.91 100-129 mg/dL VLDL 12 0-40 mg/dL HDL 97 40-60 mg/dl CHLHDL 1.8 1-3.5 H-Glycohemoglobin A1C Reviewed date:06/08/2025 09:51:05 AM Interpretation:4.3 Performing Lab: Notes/Report: HGBA1C 4.3 4.0-6.0 % < 6% Non-Diabetic Level < 7% Controlled Diabetic Level > 8% Poorly Controlled Diabetic Level P-Microalbumin/Creatinine, R andom Urine Sample Reviewed date:06/08/2025 09:51:05 AM Interpretation:Normal Performing Lab: Notes/Report: CLIA: [id number] Jong Schneider MD, Clinical Systems Educator [facility] , [place] [address] Test performed by [employer], [facility] Albumin/Creatinine Ratio, Urine <3.69 0-30 ug/m g Microalbumin, Urine, Random <0.3 Creatinine, Urine 81.1 REASON FOR VISIT annual check up Medications Medication SIG (Take, Route, Frequency, Duration) Notes Start Date End Date Status Dexlansoprazole 60 MG 1 capsule 1/2 to 1 hour before morning meal Orally Once a day Active Bisoprolol Fumarate 5 MG 1 tablet Orally Once a day Active Spironolactone 50 MG 1 tablet Orally beti ry other day Active Problems Problem Type SNOMED Code ICD Code Onset Dates Problem Status W/U Status Risk Notes Problem Alcoholic cirrhosis (151985483) Alcoholic cirrhosis of liver with ascites (K70.31) Active confirmed Problem Body mass index 30+ - obesity (045874746) BMI 30.0-30.9,adul t (Z68.30) Active confirmed Vital Signs Weight 236.3 lbs 06/07/2025 Blood pressure systolic 122 mm Hg 06/07/20 25 Blood pressure diastolic 70 mm Hg 025 Heart Rate 76 /min 06/07/2025 Height 74 in 06/07/2025 BMI 30.34 kg/m2 06/07/2025 Encounters Encounter Location Date Provider Diagnosis [facility] [address] [facility] [address] [place] [address], [place] [id number] 06/07/2025 Pasquale Girard HTN (hypertension) I 10 ; Hyperglycemia R73.9 ; Idiopathic thrombocytopenic purpura (ITP) D69.3 ; Alcoholic cirrhosis of liver with ascites K70.31 and BMI 30.0-30.9,adult Z68.30 Assessments Encounter Date Diagnosis (ICD Code) Assessment Notes Treatment Notes Treatment Clinical Notes Section Notes 06/07/2025 HTN (hypertension) (ICD-10 - I10) 06/07/2025 Hyperglycemia (ICD-10 - R73.9) 06/07/2025 Idiopathic thrombocytopenic purpura (ITP) (ICD-10 - D69.3) 06/07/2025 Alcoholic cirrhosis of liver with ascites (ICD-10 - K70.31) 06/07/2025 BMI 30.0-30.9,adult (ICD-10 - Z68.30) Plan Of Treatment Medication Medication Name Sig Start Date Stop Date Notes Bisoprolol Fumarate 5 MG 1 tablet Orally Once a day Spironolactone 50 MG 1 tablet Orally every other day Next Appt Details Follow Up: 1 Year, Reason: Progress Notes * HAILESoloDOB:[birth year] (65 yo M)Acc No.[id number]:06/07/2025 Progress Notes Patient: Solo HERNANDEZ Provider: Sofia Girard M.D. :1960 A ge:65 Y S ex:Male Date:06/07/2025 Address:[address] , [id number] Subjective: * Chief Complaints: * 1 . Annual check up. * HPI: C ardiology: 65 year old male presents with c/o Blood Pressure Elevated P t here for check up on hypertension. Pt states he is doing well and does not have any concerns.? c/o Hyperlipidemia P t is fasting today. E ndocrinology: c/o Recent Blood Sugars P t here to f/u on DM 2. * ROS: D ERMATOLOGY: no R libby. n o H parviz. G ASTROENTEROLOGY: no N ausea. n o V omiting. U ROLOGY: no D ifficulty urinating. n o B lood in urine. * Medical History: C oronary Artery Disease, LT Heart Cath, [facility] 06/2019, Hypertension, A Fib, Hyperlipidemia, Gout, ETOH abuse, Abnormal LFT's, Bilateral Inguinal Hernia, Diastolic Dysfunction, Echo, 09/2019, Osteoarthritis, anemia/GI bleed April 2023, Thrombocytopenia, s/p Heme/Onc evaluation at [facility], cirrhosis, s/p GI evaluation with Dr. [...] Determination:. Sexually active: yes. * Medications: T anithag Dexlansoprazole 60 MG Capsule Delayed Release 1 capsule 1/2 to 1 hour before morning meal Orally Once a day , Taking Bisoprolol Fumarate 5 MG Tablet 1 tablet Orally Once a day , Taking Spironolactone 50 MG Tablet 1 tablet Orally every other day , Discontinued Xarelto 15 MG Tablet 1 tablet with food Orally Once a day , Medication List reviewed and reconciled with the patient * Allergies: N .K.D.A. Objective: * Vitals: W t: 236.3, Temp: 97.9, BP: 122/70, HR: 76, Nurse: emmanuel, Ht: 74, BMI:30.34. * Examination: G eneral Examination: General Appearance: N AD. H eart: R SR. L ungs:?clear to auscultation. P eripheral pulses: n ormal (2+) bilaterally. E xtremities:?no leg edema. Assessment: * Assessment: 1. H TN (hypertension) - I10 (Primary) 2 . H yperglycemia - R73.9 ? 3 . I diopathic thrombocytopenic purpura (ITP) - D69.3 4 . A lcoholic cirrhosis of liver with ascites - K70.31 5 . B ME 30.0-30.9,adult - Z68.30 Plan: * Treatment: Value Reference Range T RIG 61 30-150 - mg/dl * C HOL 173 140-200 - mg/dl * D LDL 63.91 L 100-129 - mg/dL * V LDL 12 0-40 - mg/dL * H DL 97 H 40-60 - mg/dl * C HLHDL 1.8 1-3.5 - * Dione Bejarano 06/08/2025 09:51 :01 AM EDT > See phone encounter ?LAB: P-Microalbumin/Creatinine, Random Urine Sample (Collection Date & Time - 06/07/2025 10:30 AM)?Normal* Value Reference Range A lbumin/Creatinine Ratio, Urine <3.69 0-30 - ug /mg * C reatinine, Urine 81.1 - mg/dL * M icroalbumin, Urine, Random <0.3 - mg/dL * Dione Bejarano 06/08/2025 09:51 :01 AM EDT > See phone encounter 2.?Hyperglycemia?LAB: H-Glycohemoglobin A1C (Collection Date & Time - 06/07/2025 08:54 AM)? 4.3* Value Reference Range H GBA1C 4.3 4.0-6.0 - % * Dione Bejarano 06/08/2025 09:51 :01 AM EDT > See phone encounter * Procedure Codes: G 2211 Complex e/m visit add on, 3044F HG A1C LEVEL LT 7.0%, 1036F TOBACCO NON- USER, G8950 PREHTN/HTN BP DOC INDCD F/U DOC, G8752 MOST RECENT SYSTOLIC BP < 140MM HG, G8754 MOST RECENT DIASTOLIC BP < 90MM HG * Follow Up: 1 Year * Images: Drawing:main [place] [facility] 2024 Billing Information: * Visit Code: 63375 Office Visit, Est Pt., Level 3. * Procedure Codes: G2211 Complex e/m visit add on. 3044F HG A1C LEVEL LT 7.0%. 1036F TOBACCO NON-USER. G8950 PREHTN/HTN BP DOC INDCD F/U DOC. G8752 MOST RECENT SYSTOLIC BP < 140MM HG. G8754 MOST RECENT DIASTOLIC BP < 90MM HG. * Electronic signature of Abbey Girard MD on 09/06/2025 at 08:48 AM EST Sign off status: Pending * Provider: Sofia Girard M.D. Date: 0 06/07/2025 Generated for Teagani ng/Jedg/eTransmitting on: 1 11/06/2024 08:48 AM EST History and Physical Notes * HPI (History of Present Illness) Category Sub-Category Detail Notes Category Not es Endocrinology Recent Blood Sugars Pt here to f/u on DM 2 Cardiology Blood Pressure Elevated Pt here for check up on hypertension. Pt states he is doing well and does not have any concerns Hyperlipidemia Pt is fasting today Examination Category Sub-Category Detail Notes Category Not es General Examination Heart: RSR Lungs: clear to auscultatio n Extremities: no leg edema General Appearance: NAD Peripheral pulses: normal (2+) bilatera lly
--- OUTSIDE RECORDS SUMMARY | 2025-09-06 08:50 | XMS_ITS | Data Portability ---
Author Organization [place] Address [address] [place] [address] Care Team Providers Care Polysomnographic Technician Name Role Phone [facility] Primary [...] bloating. 4) Thrombocytopenia: Profound. He sees a welder and fitter in [place]. Previously improved on steroids. This improved with steroids previously, worsenend when they were stopped. 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 Following with hematology. 6) GERD: Change Nexium to Pantoprazole. [email or web address] Not available 07/23/2023 18:04:22 08/11/2024 08/11/2024 64-year-old [...] HCC. Pt reports recent US abd at [facility]. WIll obtain. Not available 08/11/2024 12:23:52 [...] HCC. Pt reports recent US abd at [facility]. WIll obtain. Not available 10/13/2024 10:41:40 [...] - Labs ordered through with the patient's welder and fitter, Dr. Bermudez. 3) Constipation: Miralax as needed. [...] for HCC. Patient to perform ultrasound at [facility]. Order given to patient today. [...] for HCC. Patient to perform ultrasound at [facility]. Awaiting results of US. Not available 06/15/2025 15:45:46 Plan of Treatment Reminders Order Date Submit Date Provider Last Modified By Organization Details Last Modified Time Details Appointments Establish ed Visit 15 min 2025 09:00A M Saeid Gilman MD Not available Not available Not available Lab CMP, serum or plasma 2024 025 CARO [facility], [address], [address], [place], [address], 02/14/2025 10:44:25 CBC w/ auto diff 2024 025 VAN [facility], [address], [address], [place], [address], 02/14/2025 10:44:26 afp (alpha-fe toprotein ) tumor marker, serum or plasma 2024 025 CARO [facility], [address], [address], [place], [address], 02/15/2025 14:25:49 PT/PTT, plasma 2024 025 CARO [facility], [address], [address], [place], [address], 02/14/2025 11:28:54 CMP, serum or plasma 2023 CARO [facility], [address], [address], [place], [address], 08/12/2024 10:04:33 afp (alpha-fe toprotein ) tumor marker, serum or plasma 2023 024 [email or web address] 4 [facility], [address], [address], [place], [address], 08/18/2024 09:03:53 PT/INR 2023 024 [email or web address] 4 [facility], [address], [address], [place], [address], 08/18/2024 09:03:53 CBC w/ auto diff 2023 024 VAN [facility], [address], [address], [place], [address], 08/12/2024 09:09:00 hepatitis A virus Ab, qualitati ve, immunoass ay, serum 2023 024 VAN [facility], [address], [address], [place], [address], 08/14/2024 19:21:40 hepatitis B surface Ab, qualitati ve, serum 2023 024 VAN [facility], [address], [address], [place], [address], 08/13/2024 12:51:57 Referral None recorded. Procedures None recorded. Surgeries None recorded. Imaging US, liver 2024 [facility] [address], [place], [address], 02/22/2025 11:08:42 Medication Orders Xifaxan 550 mg tablet 2023 [facility] #[id number], [address] [place], [address], 02/09/2025 09:26:24 Dexilant 60 mg capsule, delayed release 2023 024 [facility]armacy #[id number], [address] [place], [address], 08/11/2024 11:25:44 simethico ne 125 mg capsule [address] [facility] [facility], [address] [place], [place], [id number], 02/09/2025 09:26:02 pantopraz ole 40 mg tablet,de layed release 2022 023 [facility] [address] [facility], [address], [id number], 02/09/2025 09:22:38 Patient TargetsNo targets recorded. Patient InstructionsNo instructions recorded. Reason for Referral None Reported. Results Created Date Observation Date Name Description Value Unit Range Abnormal Flag Note LastModifiedBy Organization Detail LastModifiedTime 07/15/20 24 07/15/2024 BHAVANI PREP TISSU E bhavani prep tissue NEGATI VE negati ve Not Available [facility]) [address] , [place], [address], 07/15/2024 17:33:57 07/14/20 25 07/19/2025 PATHO LOGY SPECI MEN pathology specimen SEE REPORT Not Available [facility] ([facility]) [address] , [place], [address], 07/19/2025 12:23:35 07/07/20 23 07/07/2023 US, liver No observ ation record ed. [facility] [address], [place], [address], 08/28/2023 14:46:27 02/23/20 25 02/21/2025 US, liver No observ ation record ed. [facility] [address], [place], [address], 02/28/2025 11:44:25 Result Notes None recorded. Problems Name Problem SNOMED Code Status Onset Date Resolution Date Notes Provider Name and Address Organization Details Recorded Time Cirrhosis of liver Active 2022 Pablito Mccarthy PA-C [address], [place], [address] , [place] [place] 3 09:35:44 Constipation 27243407 Active 2022 Pablito Mccarthy PA-C [address], [place], [address] , [place] [place] 3 10:54:34 Thrombocytope cris disorder 873472237 Active 2022 Pablito Mccarthy PA-C [address], [place], [address] , [place] [place] 3 10:54:44 Superior mesenteric vein thrombosis 016186194 Active 2022 Pablito Mccarthy PA-C [address], [place], [address] , [place] 3 10:55:43 Gastroesophag eal reflux disease without esophagitis 984738328 Active 2022 Pablito Mccarthy PA-C [address], [place], [address] , [place] [place] 3 09:35:58 Abdominal bloating 634106773 Active 2022 Pablito Mccarthy PA-C [address], [place], [address] , [place] 3 09:36:01 Problem Notes None recorded. Procedures Surgical History Date Name Laterality Status Provider Name and Address Organization Details Recorded Time total knee replacement completed Kraig HEART DELVIS [facility] & [place] 02/09/2025 09:27:31 total shoulder replacement completed Kraig HEART DELVIS [facility] & [place] 02/09/2025 09:27:47 operation on stomach completed Kraig HEART DELVIS [facility] 02/09/2025 09:27:59 Imaging Results None recorded. Procedure [...] Updated DateTime 02/09/2025 187.96 cm 28.8 kg/m2 344278.4 9 g 73 /min 133/73 mm[Hg] Kraig Medeiros [place] [facility] & [place] 5 09:28:08 Date Recorded Body height Body mass index (BMI) Body weight Oxygen saturation Oxygen saturation in Arterial blood by Pulse oximetry Heart rate Systolic And Diastolic Provider Name and Address Organization Details Last Updated DateTime 5 187.96 cm 30 kg/m2 936945. 61 g 99 % 99 % 72 /min 123/72 mm[Hg] Jane [facility] - [facility] & [place] 5 11:16:17 Date Recorded Body weight Body mass index (BMI) Body height Heart rate Body temperature Oxygen saturation Oxygen saturation in Arterial blood by Pulse oximetry Heart rate Systolic And Diastolic Provider Name and Address Organization Details Last Updated DateTime 4 446193. 2 g 29.7 kg/m2 187.96 cm 109 /min 98.1 [degF] 95 % 95 % 100 /min 164/76 mm[Hg] Precious Faye [facility] & [place] 4 10:29:44 Date Recorded Body height Body mass index (BMI) Body weight Body temperature Heart rate Systolic And Diastolic Provider Name and Address Organization Details Last Updated DateTime 4 187.96 cm 29.7 kg/m2 086445. 56 g 97.3 [degF] 75 /min 146/75 mm[Hg] Lisha Shell [facility] & [place] 4 09:10:59 Social History Question Answer Notes LastModified by [employer] Details LastModified Time Tobacco Smoking Status Never Smoker Precious Faye [facility], [facility] & [place] 06/25/2023 09:09:55 What Is Your Level Of Caffeine Consumption? Occasional [email or web address] Information not available 06/25/2023 Sex: Unknown Functional Status Question Answer Note LastModified by [employer] Details LastModified Time Do you use any illicit or recreational drugs? No [email or web address] Information not available 06/25/2023 Do you or have you ever used any other forms of tobacco or nicotine? No [email or web address] Information not available 06/25/2023 What is your level of alcohol consumption? None [email or web address] Information not available 06/25/2023 Mental Status None [...] virus, quadrivalent, PF 7 completed Not Available [facility] 06/15/2025 11:09:41 Hep A, adult 8 completed Not Available [facility] 06/15/2025 11:09:41 Influenza, MDCK, quadrivalent, PF 0 completed Not Available [facility] 06/15/2025 11:09:41 COVID-19, mRNA, LNP-S, PF, 100 mcg/0.5mL dose or 50 mcg/0.25mL dose 1 completed Not Available [facility] 06/15/2025 11:09:41 COVID-19, mRNA, LNP-S, PF, 100 mcg/0.5mL dose or 50 mcg/0.25mL dose 1 completed Not Available [facility] 06/15/2025 11:09:41 Influenza, split virus, trivalent, preservative 1 completed Not Available [facility] 06/15/2025 11:09:41 Influenza, MDCK, quadrivalent, PF 2 completed Not Available [facility] 06/15/2025 11:09:41 Influenza, split virus, quadrivalent, PF 3 completed Not Available [facility] 06/15/2025 11:09:41 Past Encounters Encounter ID Performer Location Encounter Start Date Encounter Closed Date Diagnosis/Indication Diagnosis SNOMED-CT Code Diagnosis ICD10 Code Diagnosis IMO Codes Diagnosis Note [id number] Saeid Gilman MD [facility] [address] [address] 06/01/2023 08:33:54 06/01/2023 13:05:24 [id number] Pablito Mccarthy PA-C [facility] [address] [address] 06/25/2023 08:46:19 06/25/2023 09:47:01 Cirrhosis of liver 94366545 K74.60 Constipation 40982936 K5 9.00 Thrombocyt openic disorder 720850990 D69.6 Superior m esenteric vein thrombosis 749279243 K55.059 History of gastrointestinal bleed 208171886 Z87.19 [id number] Pablito Mccarthy PA-C [facility] [place] [address] 07/23/2023 09:01:42 07/23/2023 10:12:53 Cirrhosis of liver 49762963 K74.60 Constipation 59450654 K5 9.00 Thrombocyt openic disorder 527643523 D69.6 Superior m esenteric vein thrombosis 914725828 K55.059 History of gastrointestinal bleed 736535228 Z87.19 Gastroesop hageal reflux disease without esophagitis 596765853 K21.9 Abdominal bloating 74191 9008 R14.0 [id number] Saeid Gilman MD [facility] [place] [address] 08/11/2024 10:19:21 08/11/2024 11:42:38 Cirrhosis of liver 84836439 K74.60 Constipation 23758180 K5 9.00 Thrombocyt openic disorder 194476087 D69.6 Superior m esenteric vein thrombosis 852333709 K55.059 History of gastrointestinal bleed 273143833 Z87.19 Gastroesop hageal reflux disease without esophagitis 033613229 K21.9 Abdominal bloating 87577 9008 R14.0 Hepatic encephalopathy 42674451 K76.82 Ascites 196859477 R18.8 [id number] Saeid Gilman MD [facility] [address] [address] 10/13/2024 08:57:09 10/13/2024 09:43:50 Cirrhosis of liver 53748379 K74.60 Constipation 42957528 K5 9.00 Thrombocyt openic disorder 069491684 D69.6 Superior m esenteric vein thrombosis 379286319 K55.059 History of gastrointestinal bleed 576416352 Z87.19 Gastroesop hageal reflux disease without esophagitis 398494903 K21.9 Abdominal bloating 75950 9008 R14.0 Hepatic encephalopathy 01934829 K76.82 Ascites 879584311 R18.8 [id number] Saeid Gilman MD [facility] [address] [address] 02/09/2025 09:08:06 02/09/2025 09:52:00 Cirrhosis of liver 39985154 K74.60 Constipation 49797202 K5 9.00 Thrombocyt openic disorder 979288013 D69.6 Superior m esenteric vein thrombosis 338916688 K55.059 History of gastrointestinal bleed 987484382 Z87.19 Gastroesop hageal reflux disease without esophagitis 222979892 K21.9 Abdominal bloating 12232 9008 R14.0 Hepatic encephalopathy 19884773 K76.82 Ascites 180873309 R18.8 Alcoholic cirrhosis 4200 44195 K70.31 2345768 [id number] Saeid Gilman MD [facility] [address] [address] 06/15/2025 11:07:24 06/15/2025 12:25:39 Cirrhosis of liver 54823805 K74.60 Constipation 88069633 K5 9.00 Thrombocyt openic disorder 445289309 D69.6 Superior m esenteric vein thrombosis 413766789 K55.059 History of gastrointestinal bleed 232046881 Z87.19 Gastroesop hageal reflux disease without esophagitis 345421331 K21.9 Abdominal bloating 21033 9008 R14.0 Hepatic encephalopathy 35973017 K76.82 Ascites 092068399 R18.8 Alcoholic cirrhosis 4200 85711 K70.31 6308510 Health Concerns Section Related Observation LastModified by Organization Detai ls LastModified Time None Recorded Concern Status LastModified by Organization Details LastModified Time None Recorded Advance Directives Directive None Recorded Payers Insurance Date Sequence Insurance Name Policy Number Policy Hidalgo Covered Member ID Hidalgo Member ID Guarantor Name 10/13/2024 2 [facility] [employer] EMPLOYEE CLAIMS - [place] (PPO) Halie Bnada [id number] Solo Ambrose 08/12/2024 1 [place] Banda [id number] Solo Ambrose 07/11/2025 1 [place] Solo Ambrose [id number] Solo Ambrose 07/18/2025 2 [place] [id number] Solo Ambrose [id number] Solo Ambrose Notes Date Note Type [...] as 16. He was seeing hematology in [place] and was placed on steroids which [...] further disposition of care. Pablito Mccarthy PA-C [address], [place], [address], [place] 07/23/2023 18:04:40 08/11/2024 text/html PREVIOUS (06/25/23): Mr. [...] as 16. He was seeing hematology in [place] and was placed on steroids which [...] Sleep cycle is altered. Saeid Gilman MD [address], [place], [address], [place] 08/11/2024 12:24:41 10/13/2024 text/html PREVIOUS (06/25/23): Mr. [...] as 16. He was seeing hematology [place] and was placed on steroids which [...] He otherwise feels well. Saeid Gilman MD [address] [facility], [place], [address], [facility] & [place] 10/13/2024 10:41:59 02/09/2025 text/html PREVIOUS (06/25/23): Mr. [...] as 16. He was seeing hematology [place] and was placed on steroids which [...] increase in abdominal girth. Saeid Gilman MD [address] [facility], [place], [address], [place] 02/09/2025 10:06:18 06/15/2025 text/html PREVIOUS (06/25/23): Mr. [...] as 16. He was seeing hematology [place] and was placed on steroids which [...] abdominal or LE swelling. Saeid Gilman MD [address], [place], [address], [facility] - [place] 06/15/2025 15:46:39
--- OUTSIDE RECORDS SUMMARY | 2025-09-06 08:50 | XMS_ITS | Clinical Summary ---
Author Organization Healthcare Address [address] [place] [address] Care Team Providers Care Cupola Patcher Name Role Phone Pasquale Girard MD Primary Care Provider [phone] Allergies No known active allergies Medications bisoprolol [...] Influenza, seasonal, injectable 08/19/2021 Moderna COVID-19 Vaccine (Jig Builder Helper) 12+ years ,12/27/2020 Social History Tobacco Use [...] - Risk 60-74 years 1-dose series) 2019 [id number]-NVQKG-96 Vaccine (3 - season) 2025 01/24/2021, 12/27/2020 [...] ORDERABLES Final Resu lt [facility] [address] [place] [address] from Last 3 Months or Most Recently Relevant to Health Maintenance [place] [address] Advance Directives * Full Code (Latest Code Status on File) Date Activated Date Inactivated Comments 08/01/2023 3:26 PM 08/06/2023 6:04 PM Question Answer Comments Patient has decision-making capacity? Yes Care Teams Cupola Patcher Relationship Specialty Start Date End Date Pasquale Girard MD [address] [facility] [address] [place] [address] PCP - General 5/14/21
--- OUTSIDE RECORDS SUMMARY | 2025-09-06 08:50 | XMS_ITS | Clinical Summary ---
Author Organization DANIEL LILA OD Address [facility] [place] [address] Phone Care Team Providers Care Stove Fitter Name Role Phone Unavailable Primary Care Provider [...] Zoster (1 of 2) 2009 COVID-19 Vaccine (2024-2 6 season) 2025 Influenza Vaccine (#1) 2025 Hepatitis B Vaccine Aged Out No longe r eligible based on patient's age to complete this topic Meningococcal B Vaccine Aged Out No l onger eligible based on patient's age to complete this topic
--- OUTSIDE RECORDS SUMMARY | 2025-09-06 08:50 | XMS_ITS | Patient Health Record ---
Author Organization [facility] Address [address] [facility] [address] [facility] [address] [place] [id number] Care Team Providers Care Slime Plant Operator Name Role Phone Pasquale Girard Primary Care Provider Perera Lana Unavailable [phone] Allergies No Known Allergies Results Component Value Reference Range Notes P-Culture, Wound Aerobic w/G jojo Stain Reviewed date:10/01/2024 12:10:32 PM Interpretation: Performing Lab: Notes/Report: Test performed by [employer] [address] , [address], [place] [address] Jong Schneider MD, Chief Counsel CLIA: [id number] Specimen Source Leg - Lower Right Leg [...] Tobramycin S Trimeth/Sulfa S S=SUSCEPTIBLE I=INTERMEDIATE R=RESISTANT H-Lipid Panel Reviewed date:06/08/2025 09:51:05 AM Interpretation:dldl [...] Interpretation:Normal Performing Lab: Notes/Report: Test performed by [facility], [address] , [address], [place] [address] Jong Schneider MD, Chief Counsel CLIA: [id number] Albumin/Creatinine Ratio, Urine <3.69 0-30 ug/mg Microalbumin, Urine, Random <0.3 Creatinine, Urine 81.1 H-TSH Reviewed date:06/08/2025 09:51:05 AM Interpretation:Normal Performing Lab: Notes/Report: TSH 2.35 0.465-4.68 uIU/mL Medications Medication SIG (Take, Route, Frequency, Duration) [...] Status Risk Notes Problem Nondependent alcohol abuse (918326083) EtOH [Ethanol] abuse NOS (305.00) Active confirmed Problem Abnormal liver function (30591548) Abnormal liver function study (794.8) Active confirmed Problem Essential hypertension (96373015) Essential (primary) hypertension (I10) Active confirmed Problem Hypertension (52736063) HTN (hypertension) (I10) Active confirmed Problem Vitamin D deficiency (04977284) Vitamin D deficiency (E55.9) Active confirmed Problem Hypertriglyceridemia (345698450) Hypertriglyceridemia (E78.1) Active confirmed Problem Abnormal results of liver function studies (660817292) Abnormal results of liver function studies (R94.5) Active confirmed Problem Body mass index 30+ - obesity (769981759) BMI 30.0-30.9,adult (Z68.30) Active confirmed Problem Mixed hyperlipidemia (620779512) Mixed hyperlipidemia (E78.2) Active confirmed Problem Mitral valve disorde r (44468847) Nonrheumatic mitral (valve) insufficiency (I34.0) Active confirmed Problem Ventricular prematur e depolarization (998729031) Ventricular premature depolarization (I49.3) Active confirmed Problem Alcoholic cirrhosis (624022598) Alcoholic cirrhosis of liver with ascites (K70.31) Active confirmed Problem Gout (83881499) Gout, unspecifie d (M10.9) Active confirmed Problem Male erectile disorder (196442025) Male erectile disorder (N52.9) Active confirmed Problem Chronic pain (22855913) Other chronic pain (G89.29) Active confirmed Problem Atherosclerosis of coronary artery without angina pectoris (539146924928077) Atherosclerosis of [place] coronary artery of [place] heart without angina pectoris (I25.10) Active confirmed Problem Thrombocytopenia (736489812) Thrombocytopenia (D69.6) Active confirmed Problem Atherosclerotic hear t disease of [place] coronary artery without angina pectoris (126695010606262) Coronary artery disease involving [place] coronary artery of [place] heart without angina pectoris (I25.10) Active confirmed Problem Gastroesophageal reflux disease (630674744) Gastroesophageal reflux disease, esophagitis presence not specified (K21.9) Active confirmed Problem Leukocytosis (509882709) Leukocytosis, unspecified type (D72.829) Active confirmed Problem Anemia (490576514) Anemia, unspe cified type (D64.9) Active confirmed Problem Alcoholism (7720336) Alcoholism (F10.20) Active confirmed Problem Localized, primary osteoarthritis of the shoulder region (324148832) 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) Active confirmed Problem Sciatica (05875536) Right-sided low back pain with right-sided sciatica, unspecified chronicity (M54.41) Active confirmed Problem Gastrointestinal hemorrhage (84615044) Gastrointestinal hemorrhage, unspecified gastrointestinal hemorrhage type (K92.2) Active confirmed Problem Thyromegaly (2137219) Thyromegaly (E01.0) Active confirmed Problem Acute on chronic diastolic heart failure (828296299) Acute on chronic diastolic congestive heart failure (I50.33) Active confirmed Problem Arthritis of left knee (3692199995781150) Arthritis of left knee (M17.12) Active confirmed Problem Type II diabetes mellitus without complication (080810632) Type 2 diabetes mellitus without complication, unspecified whether equipment operator intermodal yard insulin use (E11.9) Active confirmed Problem Diastolic dysfunctio n (1765704) Diastolic dysfunction (I51.89) Active confirmed Problem Bradyarrhythmia (315049666) Bradyarrhythmia (I49.8) Active confirmed Problem Cardiac arrhythmia (315916244) Bigeminy (I49.8) Active confirmed Problem Chronic idiopathic thrombocytopenic purpura (disorder) (74353556) Idiopathic thrombocytopenic purpura (ITP) (D69.3) Active confirmed Vital Signs Heart Rate 76 /min 06/07/2025 Blood pressure diastolic 70 mm Hg 06/07/2025 Height 74 in 06/07/2025 Blood pressure systolic 122 mm Hg 06/07/2025 Weight 236.3 lbs 06/07/2025 BMI 30.34 kg/m2 06/07/2025 Encounters Encounter Location Date Provider Diagnosis [facility] [address] [place] [id number] 09/27/2024 Lana Perera Cellulitis of right leg L03.115 and Wound of right lower extremity, subsequent encounter S81.801D [facility] [address] [place] [id number] 10/04/2024 Lana Perera Cellulitis of right leg L03.115 and Wound of right lower extremity, subsequent encounter S81.801D [facility] [address] [place] [id number] 11/17/2024 Pasqualejessica Girard Pre-op exam Z01.818 ; Arthritis of left knee M17.12 ; Anemia, unspecified type D64.9 ; Thyromegaly E01.0 ; Coronary artery disease involving [place] coronary artery of [place] heart without angina pectoris I25.10 ; Type 2 diabetes mellitus without complication, unspecified whether care home insulin use E11.9 ; Mixed hyperlipidemia E78.2 ; HTN (hypertension) I10 ; Gastroesophageal reflux disease, esophagitis presence not specified K21.9 ; Gout, unspecified M10.9 and Open wound of right lower extremity, subsequent encounter S81.801D [facility] [facility] [address] [place] [id number] 06/07/2025 Pasquale [place] HTN (hypertension) I 10 ; Hyperglycemia R73.9 ; Idiopathic thrombocytopenic purpura (ITP) D69.3 ; Alcoholic cirrhosis of liver with ascites K70.31 and BMI 30.0-30.9,adult Z68.30 [facility] 12[address] [facility] [address] [place] [id number] 09/30/2024 Lana Perera Wound of right lower extremity, subsequent encounter S81.801D [facility] [address] [place], [place] [id number] 04/07/2025 Pasquael [place] [facility] [address] [place], [place] [id number] 05/24/2025 Pasquale [place] [facility] [address] [place], [place] [id number] 06/08/2025 Pasquale [place] Assessments Encounter Date Diagnosis (ICD Code) Assessment [...] - Z68.30) 11/17/2024 Coronary artery disease involving [place] coronary artery of [place] heart without angina pectoris (ICD-10 - I25.10) 11/17/2024 Type 2 diabetes mellitus without complication, unspecified whether equipment operator intermodal yard insulin use (ICD-10 - E11.9) 11/17/2024 Mixed [...] Date MEDICARE PART B [address] [address] [place] [address] [id number] Solo Burch Self - patient is the insured [facility] [employer] [address] [place] [address] [id number] Solo Burch Self - patient is the insured Medications Administered Medication Instructions Date of Administration Dosage Notes Depo- Medrol 40 mg/ml 09/01/2016 1 mL Medical (General) History Medical History History ICD Code Coronary Artery Disease, LT Heart Cath, [facility] 06/2019 Hypertension A Fib Hyperlipidemia Gout ETOH abuse Abnormal LFT's Bilateral Inguinal Hernia Diastolic Dysfunction, Echo, 09/2019 Osteoarthritis anemia/GI bleed April 2023 Thrombocytopenia, s/p Heme/Onc evaluatio n at [facility] cirrhosis, s/p GI evaluation with Dr. Alivia batres DVT, Right leg, 2023 Immune Thrombocytopenia Purpura Surgical History Surgery Date(Month/Year) LT Shoulder Replacement 2005 Bilateral inguinal hernia repair 013 Percutaneous Coronary Intervention, 3 St ents Placed 06/2019 Rotator Cuff Tear Repair 02/18/2022 umbilical hernia repair - At 08/2023 Hospitalization History Reason Date(Month/Year)
--- OUTSIDE RECORDS SUMMARY | 2025-09-06 08:50 | XMS_ITS | Data Portability ---
Author Organization [place] Address [address] [facility] [address] [place] [address] Assessment Encounter Date Assessment Date Assessment LastModified [...] 1 % topical gel 2017 018 INTERFACE [employer] #[id number], [address] [place], [place], [id number], 8 10:08:42 Patient TargetsNo targets recorded. Patient Instructions Encounter Date Encounter Id Patient Instructions Last Modified By Organization Details Last Modified Time 12/24/2017 [id number] shoulder arthrit is: exercises [email or web address] Not available [...] situation. [email or web address] Not available 12/25/2017 07:56:08 12/29/2017 [id number] shoulder arthrit is: exercises [email or web address] Not available 12/29/2017 10:07:12 Reason for Referral None Reported. Results Created Date Observation Date Name Description Value Unit Range Abnormal Flag Note LastModifiedBy Organization Detail LastModifiedTime 12/24/19 18 12/24/2017 XR, silvianoul aishwarya, 2 or more view Teena song [facility] [address] [place] [address] Paticelsa t Name: KAELYN garcia : 959 [...] Sahu MD on 018 2:57 PM [email or web address] [facility] [place] [address] [place], [place], [address], 12/24/2017 16:31:00 02/27/20 18 12/29/2017 rf lt shoul aishwarya stero id injec tion [address] [address] Paticelsa t Name: KAELYN KRAUS Paticelsa t [...] Isovue 300 was wasted and discar ded. [facility] [id number] [id number] [facility] [address]- [phone] [facility] [address]15[address]- 1610-5 0 IMPRES FRANCISCA: 1. The patien t is status post left should er arthro gram with dexame thason e and bupiva ed inject ion withou t compli cation . Interp reted By: Yo castillo MD Electr onical ly Signed By: Yo castillo MD on 018 12:[address] Radiology [facility] [address] [place], [address], 12/29/2017 18:14:15 Result Notes Documentation Provider Name and Address Organization Details Recorded Time Xr, Shoulder, 2 Or More View : [facility] [place] [address] [place] [address] Patient Name: KAELYN KAN Patient : 1960 [...] By: Kaelyn Sahu MD Carol THOMAS MD [address] [place] [address], [phone], [facility] 12/24/2017 16:31:00 Procedures Surgical History Date Name Laterality Status Provider Name and Address Organization Details Recorded Time Orthopedic Surgery completed [facility] hospital 12/24/2017 14:09:47 Imaging Results None recorded. Procedure [...] Updated DateTime 12/24/2017 187.96 cm 29.5 kg/m2 111729.25 g 142/82 mm[Hg] Critical [facility] hospital 12/24/2017 14:07:23 Date Recorded Body height Body mass index (BMI) Body weight Systolic And Diastolic Provider Name and Address Organization Details Last Updated DateTime 12/29/2017 187.96 cm 29.5 kg/m2 784432.25 g 165/104 mm[Hg] Mariel Brown [facility] 12/29/2017 09:48:14 Social History Question Answer Notes LastModified by Organizat ion Details LastModified Time Tobacco Smoking Status Never Smoker Hiwot Brown yuki [facility] 12/24/2017 14:09:39 What Was The [...] ICD10 Code Diagnosis IMO Codes Diagnosis Note [id number] W DARYA THOMAS MD [facility] [address] [place] [address] 12/24/2017 13:55:33 12/24/2017 15:58:56 Localized, primary osteoarthritis of the shoulder region 339771330 M19.957 [id number] CHRISTIANO VILLEGAS MD [facility] [address] [place] [address] 12/29/2017 09:32:32 12/29/2017 11:08:54 Localized, primary osteoarthritis of the shoulder region [id number] M19.019 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 Carol THOMAS MD [address] [place] [address], [phone], [facility] 12/28/2017 07:56:38 12/29/2017 text/html ROS as noted [...] Uses Indomethacin for pain CHRISTIANO VILLEGAS MD [address] [place] [address], [phone], [facility] 12/29/2017 10:09:31
--- OUTSIDE RECORDS SUMMARY | 2025-09-06 08:50 | XMS_ITS | Clinical Summary ---
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 Device Identifier Shelf Expiration Date Model / Serial / Lot Cmt Bone [id number] 20gm - [id number] Implanted:Qt y: 1 on 02/19/2022 by Sam Massey MD at [facility] Implant Right: Shoulder DEPUY [id number] 12/30/2022 [id number] / / [id number] Sut Fw #2 W/Tpr Ndl 1/2 Cir 38in 97cm 26.5mm Blair - [id number] Implanted:Qt y: 3 on 02/19/2022 by Sam Massey MD at [facility] Implant Right: Shoulder ARTHREX 03/01/2026 [id number] / / [id number] Saravanan Aug Aequalis Performplus Cortiloc Peg Cocr 15d Lg Rt - [id number] - [id number] Implanted:Qt y: 1 on 02/19/2022 by Sam Massey MD at [facility] Implant Right: Shoulder TORNIER [id number] 09/10/2025 [id number] / [id number] / Nucleus Shldr Simpliciti Sz2 - [id number] - [id number] Implanted:Qt y: 1 on 02/19/2022 by Sam Massey MD at [facility] Implant Right: Shoulder TORNIER 11/26/2026 [id number] / [id number] / NA Hd Hum/Shldr Simpliciti [id number] - [id number] - [id number] Implanted:Qt y: 1 on 02/19/2022 by Sam Massey MD at [facility] Implant Right: Shoulder TORNIER 08/28/2026 [id number] / [id number] / NA Shldr Simpliciti Nucleus Hd Saravanan Tornier - [id number] Implanted:Qt y: 1 on 02/19/2022 by Sam Massey MD at [facility] Implant Right: Shoulder TORNIER CAPSHLDRHDGLENTO R N / / Insurance [facility] BLUE CROSS BLUE SHIELD PPO [...] Of Support Discussed With: Patient Care Teams Insulation Packer Relationship Specialty Start Date End Date Pasquale Girard MD [address] [place] [address] [place] [address] [place] [address] PCP - General Family Medicine 01/14/22
--- NOTE | 2025-09-06 08:51 | PC.NURSE ---
0850-collected labs via venipuncture stick in right ac with butterfly needle; pt to appt.
--- OUTSIDE RECORDS SUMMARY | 2025-09-06 08:51 | XMS_ITS | Encounter Summary ---
Author Organization Healthcare Address [address] [place] [address] Care Team Providers Care Dial Refinisher Name Role Phone Pasquale Girard MD Primary Care Provider [phone] Encounter Details Date Type Department Care Team (Latest Contact Info) Description 07/22/2024 [facility] [address] [place] [address] Wilner Ortiz, DO [address] [place] [address] [place] [phone] Osteoarthritis of left knee, unspecified osteoarthritis type [...] Primary documented in this encounter Care Teams Dial Refinisher Relationship Specialty Start Date End Date Pasquale Girard MD [address] [place] [address] PCP - General 03/15/21 documented as of this encounter
[2025-09-06 09:10] LABS: Hematocrit 41.7 % (42.0-52.0); Hemoglobin 14.7 g/dL (14.1-18.0); Immature Granulocytes % 0.4 %; Mean Corpuscular HGB Conc 35.3 g/dL (31.8-35.4); Mean Corpuscular Hemoglobin 33.4 pg (27.0-31.2); Mean Corpuscular Volume 94.8 fl (80-94); Nucleated Red Blood Cells % 0 %; Platelet Count 75 K/mm3 (142-424); Red Blood Count 4.40 M/mm3 (4.60-6.20); Red Cell Distribution Width-SD 48.5 fL; White Blood Count 4.9 K/mm3 (4.8-10.8)
[2025-09-06 09:25] LABS: Alanine Aminotransferase 28 U/L (12-78); Albumin Level 3.8 g/dl (3.5-5.0); Albumin/Globulin Ratio 1.0 (1.1-1.8); Alkaline Phosphatase 82 U/L (38-126); Anion Gap 9.3 mEq/L (5-15); Aspartate Amino Transferase 65 U/L (17-59); Bilirubin,Total 2.8 mg/dl (0.2-1.3); Blood Urea Nitrogen 9 mg/dl (9-20); Calcium 9.2 mg/dl (8.4-10.2); Carbon Dioxide 24 mmol/L (22.0-30.0); Chloride 102 mmol/L (98-107); Creatinine,Serum 0.90 mg/dl (0.66-1.25); Estimated Glomerular Filt Rate 84 ml/min (>60); GFR (African American) 102 ML/MIN (>60); Globulin 3.7 g/dL (1.3-3.2); Glucose 113 mg/dl (74-100); Potassium 4.3 mmoL/L (3.5-5.1); Sodium 131 mmol/L (136-145); Total Protein,Serum 7.5 g/dl (6.3-8.2)
== END 2025-09-06 23:59 | disposition home or self-care (01) ==
PROVIDERS: PCP Family Medicine; Visit Provider Internal Medicine Medical Oncology
DX: D69.3 Immune thrombocytopenic purpura (principal)
CPT/HCPCS: 36415; 80053; 85025

== ENCOUNTER 2025-10-16 10:25 | Outpatient (CLI) | payer MEDICARE, BC, SELFPAY ==
[2025-10-16 10:55] LABS: Hematocrit 42.3 % (42.0-52.0); Hemoglobin 15.1 g/dL (14.1-18.0); Immature Granulocytes % 0.4 %; Mean Corpuscular HGB Conc 35.7 g/dL (31.8-35.4); Mean Corpuscular Hemoglobin 33.8 pg (27.0-31.2); Mean Corpuscular Volume 94.6 fl (80-94); Nucleated Red Blood Cells % 0 %; Platelet Count 92 K/mm3 (142-424); Red Blood Count 4.47 M/mm3 (4.60-6.20); Red Cell Distribution Width-SD 44.3 fL; White Blood Count 4.8 K/mm3 (4.8-10.8)
--- NOTE | 2025-10-16 11:35 | PC.NURSE ---
1024-collected labs via venipuncture stick in right ac with butterfly needle.
== END 2025-10-16 23:59 | disposition home or self-care (01) ==
PROVIDERS: PCP Family Medicine; Visit Provider Internal Medicine Medical Oncology
DX: D69.3 Immune thrombocytopenic purpura (principal)
CPT/HCPCS: 36415; 85025